=== PATIENT | male | born 1980 | race Caucasian/White ===

== ENCOUNTER 2018-03-05 10:39 | Inpatient (IN) | payer MEDICAID, SELFPAY ==
[2018-03-05 10:41] VITALS: BP 129/81; PULSE 112; RESP 18; TEMP 36.6; O2SAT 98; BMI 24.1
[2018-03-05] MEDS: LORazepam 2 MG/ML Syringe 1 MG IV (11:00)
[2018-03-05 11:05] LABS: Absolute Lymphocyte Count 2.68 X10^3/ul (0.83-4.51); Absolute Neutrophil Count 3.5 X10^3/uL (2.0-7.7); Basophil# 0.06 X10^3/uL; Basophil% 0.8 % (0-1); Eosinophil# 0.05 X10^3/uL; Eosinophils% 0.7 % (0-5); Hematocrit 41.5 % (40-54); Lymphocyte # 2.68 X10^3/ul (4.0); Lymphocyte % 37.7 % (19-41); Mean Corp Hgb Conc 33.7 g/gl (32-36); Mean Corpuscular Hgb 32.1 pg (27.0-32.0); Mean Corpuscular Volume 95.2 fL (80-94); Mean Platelet Vol. 8.8 fl (6.2-12.0); Monocyte# 0.76 X10^3/uL; Monocyte% 10.7 % (0-10); Neutrophil # 3.54 X10^3/uL (2.7-7.7); Neutrophil % 49.8 % (47-70); POSITIVE COUNT NO; POSITIVE DIFFERENTIAL NO; POSITIVE MORPHOLOGY NO; Platelet Count 250 K/mm3 (150-450); RBC Distribution Width CV 15.4 % (11.6-14.6); Red Blood Count 4.36 M/mm3 (4.6-6.2); White Blood Count 7.1 K/mm3 (4.4-11.0)
--- NOTE | 2018-03-05 11:05 | ED.VISSUMM ---
- ER Visit Summary Date of Service: 03/05/18 Chief Complaint: Alcohol withdrawal History of Present Illness: The patient is a 37 M with alcohol withdrawal. He left the hospital 2 days ago AGAINST MEDICAL ADVICE. He was admitted for alcohol withdrawal. He is in the area, staying with a friend. He has been drinking again. His last alcohol intake was this morning around 8 AM, about 3 hours ago. He is unable to quantify how much alcohol he drinks daily, but says a lot. Denies any drug use. He does smoke. He has history of schizoaffective disorder and takes Geodon, gabapentin, and BuSpar. He denies any hallucinations, suicidal thoughts, or homicidal thoughts. He says he has been in contact with someone named Stephany at [facility] in [facility]. He is requesting admission for detox. He does have a history of DTs and withdrawal seizures. Physical Examination: Patient is tachycardic but otherwise vitals are unremarkable. Afebrile. Slightly diaphoretic. Mild tremor. Alert and oriented. Heart is tachycardic but regular. Lungs are clear. Abdomen soft. He has a depressed mood and very mild agitation. No suicidal or homicidal ideation area Test Results: Laboratory studies, tox, alcohol level pending. Emergency Department Course and Treatment: Patient had an IV placed. Seizure precautions. Treated with Ativan while awaiting results. I called [facility] but no unanswered, and I left a voicemail. CBC unremarkable. Potassium 3.3. Alkaline phosphatase 120. Alcohol level 289. Tox screen positive for amphetamines, benzodiazepines, and cannabinoids. Patient had a CIWA score of 32. We were unable to reach anyone at his [facility] facility. He would like to stay here for alcohol withdrawal and detox. I will contact the hospitalist for further care. Treatment Plan: As above Disposition: Admission Impression: 1. Alcohol withdrawal This note was generated with [employer] dictation software. It may contain incorrect words, spelling, and punctuation that were not noted in review of the chart prior to signing ED Disposition - Plan for ED Patient: Chief Complaint: ETOH Intox
[2018-03-05 11:20] LABS: AST(SGOT) 25 U/L (15-37); Alanine Aminotransfer ALT/SGPT 45 U/L (16-61); Albumin, Serum 3.8 g/dL (3.2-5.0); Alkaline Phosphatase 120 U/L (45-117); Anion Gap 11 (5-15); BUN 7 mg/dL (7-18); BUN/Creat Ratio 9.5 RATIO (10-20); Calcium,Total 8.3 mg/dL (8.5-10.1); Chloride 103 mmol/L (98-107); Creatinine, Serum 0.74 mg/dL (0.70-1.30); EST Glomerular Filtration Rate 126 mL/min (>60); Est Glom Filt Rate - Afr Amer 152 mL/min (>60); Estimated Creatinine Clearance 160.18 ml/min; Globulin 3.7 g/dL (2.2-4.2); Glucose 96 mg/dL (74-106); Potassium 3.3 mmol/L (3.5-5.1); Protein, Total 7.5 g/dL (6.4-8.2); Sodium Level 139 mmol/L (136-145)
[2018-03-05 12:02] LABS: Amphetamine Urine VISTA POSITIVE (<1000 ng/mL); Barbiturate Urine VISTA NEGATIVE (< 200 ng/mL); Benzodiazepine Urine VISTA POSITIVE (< 200 ng/mL); Cocaine Urine VISTA NEGATIVE (< 300 ng/mL); Ecstacy Urine VISTA NEGATIVE (< 500 ng/mL); Methadone Urine VISTA NEGATIVE (< 300 ng/mL); PCP Urine VISTA NEGATIVE (< 25 ng/mL); THC Urine VISTA POSITIVE (< 50 ng/mL); Vista UDS pH Range 6
--- NOTE | 2018-03-05 12:18 | NURSING ---
DR BALDERRAMA FOR DR MACEDO
--- NOTE | 2018-03-05 12:18 | NURSING ---
MED SURG PAINTSIL ALCOHOL WITHDRAWAL
--- NOTE | 2018-03-05 12:19 | PCM.HP.STD ---
Problem List (1) Alcohol withdrawal Status: Acute (2) Alcohol dependence Status: Chronic Qualifiers: Substance use status: in withdrawal (3) Nicotine dependence Status: Chronic Qualifiers: Nicotine product type: cigarettes Substance use status: in withdrawal Qualified Code(s): F17.213 - Nicotine dependence, cigarettes, with withdrawal History of Present Illness Date of Admission: 03/05/18 Chief Complaint: Muscle cramps, tremors - 1 day The patient is a 37 year old M with PMHx of alcohol and nicotine dependence who has signed out AMA from [facility] this past few days. He says he signed out AMA because he felt better after some doses of Ativan and Valium. He drinks more than 1 L of liquor everyday. He drinks everything including mouthwash. He had tried to moderate his withdrawal symptoms by drinking beer every 4 hours but he is shaking very much. He complains of muscle cramps, tremors. Denied chest pain, diarrhea or abdominal pain. Vitals in the ED showed T 97.9F, HR 112, BP 129/81, RR 18, Spo2 98%. CBCD showed WBC 7.1, Hb 14.0, Plt 250. BMP showed Na 139, K 3.3, Cl 103, HCO3 25, BUN 11, Cr 0.74. Urine tox showed amphetamines, benzodiazepines, cannabinoids. Past Medical History Past Medical History (Chronic Problems): Chronic Problems Alcohol dependence (Chronic) Nicotine dependence (Chronic) Allergies morphine Allergy (Verified 03/05/18 10:45) Angioedema HORSES Allergy (Uncoded 03/05/18 10:45) Anaphylaxis Home Medications: Ambulatory Orders Medication Instructions Recorded Buspirone HCl [Buspar] 30 mg PO BID 03/05/18 Gabapentin [Neurontin] 800 mg PO TIDCM 03/05/18 Geodon 60 mg PO BID 03/05/18 Omeprazole [Prilosec] 20 mg PO DAILY 03/05/18 Surgical History: no surgical history Psychiatric History: No pertinent psych hx Lives: Alone Smoking Status: Current every day smoker Tobacco Use: Cigarettes, Cigars, Chew Alcohol: Heavy Drugs: Marijuana, - - amphetamines Review of Systems Constitutional: Reports: Malaise, Weakness. Denies: Anorexia, Chills, Fever, Weight Change Eyes: Denies: Blurred vision, Cataracts, Conjunctivae Inflammation, Pain, Redness, Vision Change HEENT: Denies: Difficulty Hearing, Difficulty Swallowing, Head Aches, Hearing Changes, Sinus Congestion, Sinus Drainage Cardiovascular: Denies: Chest Pain, Claudication, Orthopnea, Palpitations, Paroxysmal Noc. Dyspnea Respiratory: Denies: Cough, Hemoptysis, Shortness of breath at rest, Shortness of breath upon exertion, Sputum production Gastrointestinal: Denies: Abdominal Pain, Constipation, Hematemesis, Hematochezia, Nausea, Vomiting Genitourinary: Denies: Dysuria, Frequency, Incontinence, Nocturia Musculoskeletal: Denies: Joint Pain, Joint stiffness, Joint swelling, Joint Tenderness Skin: Denies: Rash, Wounds Neurological: Reports: Tremor. Denies: Focal weakness, Numbness, Tingling Psychiatric: Denies: Anxiety, Depression, Homicidal Ideations, Suicidal Ideations Hematologic/ Lymphatic: Denies: Easy Bruising, Easy Bleeding VTE Information - Inpt Only VTE Present on Admission: No VTE Pharm Prophylaxis ordered?: Yes Patient Problems: Active and Suspected Problems Alcohol withdrawal (Acute) - Physical Exam General: Alert, Oriented x3, Cooperative, - - very anxious HEENT: Atraumatic, PERRLA, EOMI, Normocephalic Oral: Moist Mucosa Neck: Supple, No JVD, Negative Carotid Bruits Lungs: Clear to auscultation, Normal air movement Cardiovascular: Regular rate, Regular Rhythm, Normal S1, Normal S2, Tachycardic Abdomen: Bowel Sounds Present, Soft, Non Tender, Non-Distended, No Hepato-splenomegaly, Passing Flatus Extremities: No edema, Capillary Refill Less than 3 Seconds Skin: - - Tatooes all over including lower eyelids/upper maxillary region Musculoskeletal: No Tenderness to Palpation of Joints or Extremities Lymphatic: No Cervical, Supraclavicular, or Inguinal Adenopathy Neurological: Cranial nerves II-XII grossly intact, - - Tremors of extremities, fine, fidgetting in bed Psych/Mental Status: Normal Affect, Appropriate Vital Signs Temp Pulse Resp BP Pulse Ox 97.9 F 112 H 18 129/81 H 98 03/05/18 10:41 03/05/18 10:41 03/05/18 10:41 03/05/18 10:41 03/05/18 10:41 Oxygen Delivery Method Room Air Weight: 87.543 kg Body Mass Index (BMI) 24.1 Laboratory Tests Past 24 Hrs 03/05/18 03/05/18 03/05/18 10:55 10:55 10:55 WBC 7.1 RBC 4.36 L Hgb 14.0 Hct 41.5 MCV 95.2 H MCH 32.1 H MCHC 33.7 RDW 15.4 H RDW Differential 53.0 H Plt Count 250 MPV 8.8 Immature Gran % (Auto) 0.300 Neut % (Auto) 49.8 Lymph % (Auto) 37.7 Villalba % (Auto) 10.7 H Eos % (Auto) 0.7 Baso % (Auto) 0.8 Absolute Neuts (auto) 3.5 Absolute Lymphs (auto) 2.68 Total Counted Not Reportable Sodium 139 Potassium 3.3 L Chloride 103 Carbon Dioxide 25.0 Anion Gap 11 BUN 7 Creatinine 0.74 Estim Creat Clear Calc 160.18 Est GFR (MDRD) Af Amer 152 Est GFR (MDRD) Non-Af 126 BUN/Creatinine Ratio 9.5 L Glucose 96 Calcium 8.3 L Total Bilirubin 0.40 AST 25 ALT 45 Alkaline Phosphatase 120 H Total Protein 7.5 Albumin 3.8 Globulin 3.7 Albumin/Globulin Ratio 1.0 Urine Opiates Screen Urine Methadone Screen Ur Barbiturates Screen Ur Phencyclidine Scrn Ur Amphetamines Screen U Methamphetamin-MDMA U Benzodiazepines Scrn Urine Cocaine Screen U Cannabinoids Screen Ur Drug Screen Comment Ethyl Alcohol 289.0 03/05/18 11:40 WBC RBC Hgb Hct MCV MCH MCHC RDW RDW Differential Plt Count MPV Immature Gran % (Auto) Neut % (Auto) Lymph % (Auto) Villalba % (Auto) Eos % (Auto) Baso % (Auto) Absolute Neuts (auto) Absolute Lymphs (auto) Total Counted Sodium Potassium Chloride Carbon Dioxide Anion Gap BUN Creatinine Estim Creat Clear Calc Est GFR (MDRD) Af Amer Est GFR (MDRD) Non-Af BUN/Creatinine Ratio Glucose Calcium Total Bilirubin AST ALT Alkaline Phosphatase Total Protein Albumin Globulin Albumin/Globulin Ratio Urine Opiates Screen NEGATIVE Urine Methadone Screen NEGATIVE Ur Barbiturates Screen NEGATIVE Ur Phencyclidine Scrn NEGATIVE Ur Amphetamines Screen POSITIVE H U Methamphetamin-MDMA NEGATIVE U Benzodiazepines Scrn POSITIVE H Urine Cocaine Screen NEGATIVE U Cannabinoids Screen POSITIVE H Ur Drug Screen Comment Ethyl Alcohol Assessment/Plan All Active Problems Alcohol withdrawal (Acute) 37 year old M with PMHx of alcohol and nicotine dependence who has signed out AMA from [facility] this past few days. He says he signed out AMA because he felt better after some doses of Ativan and Valium. 1. Acute alcohol withdrawal, h/o of heavy alcohol dependence, h/o AMA, moderate, will admit to medsurg, manage on alcohol withdrawal protocol, monitor on CIWA protocol. 2. Hypokalemia, will replace, recheck labs in am 3. Nicotine dependence, on replacement 4. Polysubstance use, urine tox showed amphetamines, cannabinoids. Advised to quit 5. DVT PPx- Early ambulation. Code Visit Inpatient E&M: 38664 Init Hosp L3
--- NOTE | 2018-03-05 12:25 | NURSING ---
DR BALDERRAMA IN ER
[2018-03-05 13:22] VITALS: BMI 24.0; BMI 24.1
[2018-03-05 13:47] VITALS: BP 114/71; PULSE 106; RESP 18; TEMP 36.7; O2SAT 100
[2018-03-05] MEDS: LORazepam 1 MG Tablet PO ×3 (13:58→22:32)
--- NOTE | 2018-03-05 15:25 | NURSING ---
Asked patient specifically about having thoughts of suicidal/homicidal ideation and he denies both at this time. He states he is just,anxious and depressed and knows that he needs to stop drinking. Patient was informed that he if has these thoughts he needs to immediately call out to let someone know. Patient verbalizes understanding.
[2018-03-05] MEDS: 0.9% NaCl Peripheral Flush Adult/Peds IV (17:21)
[2018-03-05] MEDS: Gabapentin 800 MG Tablet PO (17:21)
[2018-03-05] MEDS: Ondansetron 4 MG/2 ML Vial IV (17:21)
[2018-03-05 17:25] VITALS: BP 122/83; PULSE 105; RESP 16; TEMP 36.8; O2SAT 99
[2018-03-05] MEDS: Dicyclomine 10 MG Capsule 20 MG PO (20:40)
[2018-03-05] MEDS: hydrOXYzine PAM 25 MG Capsule 50 MG PO (20:40)
[2018-03-05] MEDS: Methocarbamol 750 MG Tablet PO (20:41)
[2018-03-05 20:46] VITALS: BP 128/63; PULSE 116; RESP 16; TEMP 36.8; O2SAT 97
[2018-03-05] MEDS: Ziprasidone HCl 20 MG Capsule 60 MG PO (22:32)
[2018-03-05] MEDS: busPIRone 15 MG TABLET 30 MG PO (22:32)
[2018-03-05 22:41] LABS: Bedside Glucose 100 mg/dL (70-110)
[2018-03-06 02:16] VITALS: BP 110/76; PULSE 91; RESP 16; TEMP 36.4; O2SAT 99
[2018-03-06 06:54] LABS: Anion Gap 6 (5-15); BUN 9 mg/dL (7-18); BUN/Creat Ratio 10.8 RATIO (10-20); Calcium,Total 8.5 mg/dL (8.5-10.1); Chloride 104 mmol/L (98-107); Creatinine, Serum 0.83 mg/dL (0.70-1.30); EST Glomerular Filtration Rate 109 mL/min (>60); Est Glom Filt Rate - Afr Amer 132 mL/min (>60); Estimated Creatinine Clearance 142.81 ml/min; Glucose 95 mg/dL (74-106); Potassium 3.5 mmol/L (3.5-5.1); Sodium Level 139 mmol/L (136-145)
[2018-03-06] MEDS: Folic Acid 1 MG Tablet PO (08:54)
[2018-03-06] MEDS: Pantoprazole Sodium 20 MG Tablet PO (08:54)
[2018-03-06] MEDS: Multivitamins,Therapeutic Tablet 1 TABLET PO (08:54)
[2018-03-06] MEDS: Thiamine Hydrochloride 100 MG Tablet PO (08:54)
[2018-03-06] MEDS: Gabapentin 800 MG Tablet PO ×3 (08:54→17:02)
[2018-03-06] MEDS: LORazepam 1 MG Tablet PO ×3 (08:54→21:26)
[2018-03-06] MEDS: busPIRone 15 MG TABLET 30 MG PO ×2 (08:54→21:26)
[2018-03-06 09:02] VITALS: BP 105/77; PULSE 78; RESP 16; TEMP 36.5
--- NOTE | 2018-03-06 09:06 | NURSING ---
Malia held this AM due to pt very lethargic. Able to wake up pt with verbal and touch but quickly falls back asleep.
--- NOTE | 2018-03-06 10:24 | PN_ITS ---
Patient Problems: Active and Suspected Problems Alcohol withdrawal (Acute) Subjective: Patient was seen and examined. Been sleeping. A couple of doses of Ativan was not given because patient has been sleeping since been given Geodon. No other acute events overnight. Objective: Physical Exam General: Alert, Oriented x3, Cooperative, - - very anxious HEENT: Atraumatic, PERRLA, EOMI, Normocephalic Oral: Moist Mucosa Neck: Supple, No JVD, Negative Carotid Bruits Lungs: Clear to auscultation, Normal air movement Cardiovascular: Regular rate, Regular Rhythm, Normal S1, Normal S2, Tachycardic Abdomen: Bowel Sounds Present, Soft, Non Tender, Non-Distended, No Hepato- splenomegaly, Passing Flatus Extremities: No edema, Capillary Refill Less than 3 Seconds Skin: - - Tatooes all over including lower eyelids/upper maxillary region Musculoskeletal: No Tenderness to Palpation of Joints or Extremities Lymphatic: No Cervical, Supraclavicular, or Inguinal Adenopathy Neurological: Cranial nerves II-XII grossly intact, - - Tremors of extremities, fine, fidgetting in bed Psych/Mental Status: Normal Affect, Appropriate Vitals/I&O's: Vital Signs Temp Pulse Resp BP Pulse Ox 97.7 F L 78 16 105/77 99 03/06/18 09:02 03/06/18 09:02 03/06/18 09:02 03/06/18 09:02 03/06/18 02:16 Oxygen Delivery Method Room Air Weight: 87.4 kg Body Mass Index (BMI) 24.0 Intake and Output for Last 24 Hours 03/04/18 03/05/18 03/06/18 23:59 23:59 23:59 Intake Total 300 / 300 400 / 400 Balance 300 / 300 400 / 400 Laboratory Results 03/05/18 10:55: WBC 7.1, RBC 4.36 L, Hgb 14.0, Hct 41.5, MCV 95.2 H, MCH 32.1 H, MCHC 33.7, RDW 15.4 H, RDW Differential 53.0 H, Plt Count 250, MPV 8.8, Immature Gran % (Auto) 0.300, Neut % (Auto) 49.8, Lymph % (Auto) 37.7, Adams % (Auto) 10.7 H, Eos % (Auto) 0.7, Baso % (Auto) 0.8, Absolute Neuts (auto) 3.5, Absolute Lymphs (auto) 2.68, Total Counted Not Reportable 03/05/18 10:55: Sodium 139, Potassium 3.3 L, Chloride 103, Carbon Dioxide 25.0, Anion Gap 11, BUN 7, Creatinine 0.74, Estim Creat Clear Calc 160.18, Est GFR (MDRD) Af Amer 152, Est GFR (MDRD) Non-Af 126, BUN/Creatinine Ratio 9.5 L, Glucose 96, Calcium 8.3 L, Total Bilirubin 0.40, AST 25, ALT 45, Alkaline Phosphatase 120 H, Total Protein 7.5, Albumin 3.8, Globulin 3.7, Albumin/Globulin Ratio 1.0 03/05/18 10:55: Ethyl Alcohol 289.0 03/05/18 11:40: Urine Opiates Screen NEGATIVE, Urine Methadone Screen NEGATIVE, Ur Barbiturates Screen NEGATIVE, Ur Phencyclidine Scrn NEGATIVE, Ur Amphetamines Screen POSITIVE H, U Methamphetamin-MDMA NEGATIVE, U Benzodiazepines Scrn POSITIVE H, Urine Cocaine Screen NEGATIVE, U Cannabinoids Screen POSITIVE H, Ur Drug Screen Comment 03/05/18 22:38: POC Glucose 100 03/06/18 06:05: Sodium 139, Potassium 3.5, Chloride 104, Carbon Dioxide 29.0, Anion Gap 6, BUN 9, Creatinine 0.83, Estim Creat Clear Calc 142.81, Est GFR (MDRD) Af Amer 132, Est GFR (MDRD) Non-Af 109, BUN/Creatinine Ratio 10.8, Glucose 95, Calcium 8.5 Current Medications Buspirone HCl (Buspar) 30 mg PO BID [facility] Last Admin: 03/06/18 08:54 Dose: 30 mg Dicyclomine HCl (Bentyl) 20 mg PO Q6H PRN PRN PRN Reason: abdominal discomfort Last Admin: 03/05/18 20:40 Dose: 20 mg Folic Acid (Folic Acid) 1 mg PO DAILYCM [facility] Last Admin: 03/06/18 08:54 Dose: 1 mg Gabapentin (Neurontin) 800 mg PO TIDCM [facility] Last Admin: 03/06/18 08:54 Dose: 800 mg Hydroxyzine Pamoate (Vistaril Pamoate Capsule) 50 mg PO Q6H PRN PRN PRN Reason: Mild Anxiety (score 1/3) Last Admin: 03/05/18 20:40 Dose: 50 mg Lorazepam (Ativan) 1 mg PO Q6H [facility]; Taper Stop: 03/08/18 17:29 Last Admin: 03/06/18 08:54 Dose: 1 mg Magnesium Hydroxide (Milk Of Magnesia) 30 ml PO DAILY PRN PRN PRN Reason: Constipation Methocarbamol (Methocarbamol) 750 mg PO Q6H PRN PRN PRN Reason: Muscle Aches Last Admin: 03/05/18 20:41 Dose: 750 mg [facility] Admin: 03/06/18 08:54 Dose: 1 tablet Nicotine (Nicoderm Cq (Pbkc)) 21 mg TRANSDERM. DAILY [facility] Last Admin: 03/06/18 08:53 Dose: 21 mg Nicotine Polacrilex (Rugby Nicotine (Pbkc)) 4 mg PO Q2H PRN PRN PRN Reason: Nicotine Craving Ondansetron HCl (Zofran) 4 mg IV Q8H PRN PRN PRN Reason: NAUSEA Last Admin: 03/05/18 17:21 Dose: 4 mg Pantoprazole Sodium (Protonix) 20 mg PO DAILY [facility] Last Admin: 03/06/18 08:54 Dose: 20 mg Psyllium Hydrophilic Mucilloid (Metamucil) 1 packet PO DAILY PRN PRN PRN Reason: CONSTIPATION Senna/Docusate Sodium (Senokot-S, Elaine-Colace) 2 tablet PO BID [facility] Last Admin: 03/06/18 08:58 Dose: Not Given Sodium Chloride () 5 - 15 ml IV UD PRN PRN Reason: SALINE FLUSH Last Admin: 03/05/18 17:21 Dose: 10 ml [facility]) [facility] Last Admin: 03/06/18 08:54 Dose: 100 mg Ziprasidone (Geodon) 60 mg PO BID [facility] Last Admin: 03/06/18 08:58 Dose: Not Given Medical Necessity - Tobacco Use Smoking Status: Current every day smoker Tobacco Use: Cigarettes, Cigars, Chew Assessment/Plan All Active Problems Alcohol withdrawal (Acute) 37 year old M with PMHx of alcohol and nicotine dependence who has signed out AMA from [facility] this past few days. He says he signed out AMA because he felt better after some doses of Ativan and Valium. 1. Acute alcohol withdrawal, h/o of heavy alcohol dependence, h/o AMA, improving, will continue on manage on alcohol withdrawal protocol, monitor on CIWA protocol, [facility] to assess in am. 2. Hypokalemia, replaced 3. Nicotine dependence, on replacement 4. Polysubstance use, urine tox showed amphetamines, cannabinoids. Advised to quit 5. Schizoaffective disorder, on Geodon 6. DVT PPx- Early ambulation. Code Visit Inpatient E&M: 10179 Subs Hosp L2
[2018-03-06] MEDS: hydrOXYzine PAM 25 MG Capsule 50 MG PO (13:29)
[2018-03-06] MEDS: Methocarbamol 750 MG Tablet PO (13:29)
[2018-03-06 13:31] VITALS: BP 131/86; PULSE 94; RESP 16; TEMP 36.6; O2SAT 100
[2018-03-06 21:16] VITALS: BP 114/70; PULSE 108; RESP 14; TEMP 36.8; O2SAT 99
[2018-03-06] MEDS: Ziprasidone HCl 20 MG Capsule 60 MG PO (21:25)
[2018-03-07 03:10] VITALS: BP 117/67; PULSE 98; RESP 14; TEMP 36.7; O2SAT 97
[2018-03-07] MEDS: LORazepam 1 MG Tablet PO ×2 (03:16→09:46)
[2018-03-07 08:30] VITALS: BP 126/82; PULSE 106; RESP 18; TEMP 37; O2SAT 100
[2018-03-07] MEDS: Ziprasidone HCl 20 MG Capsule 60 MG PO (09:46)
[2018-03-07] MEDS: Pantoprazole Sodium 20 MG Tablet PO (09:46)
[2018-03-07] MEDS: Folic Acid 1 MG Tablet PO (09:46)
[2018-03-07] MEDS: Multivitamins,Therapeutic Tablet 1 TABLET PO (09:46)
[2018-03-07] MEDS: Gabapentin 800 MG Tablet PO ×2 (09:46→12:12)
[2018-03-07] MEDS: busPIRone 15 MG TABLET 30 MG PO (09:46)
[2018-03-07] MEDS: Thiamine Hydrochloride 100 MG Tablet PO (09:47)
--- NOTE | 2018-03-07 11:40 | PCM.DC ---
- Discharge Diagnoses Current Active Problems: Current Active and Chronic Problems Alcohol withdrawal (Acute) Alcohol dependence (Chronic) Nicotine dependence (Chronic) You will use the following diet at home:: Regular Your food should be the consistency of: Regular Discharge Activity: May Not Drive Call your doctor if you observe: Fever of 101 or Higher, Shortness of breath, Dizziness, Fainting spells, Chest pain Additional Instructions: Follow with the [facility] outpatient rehab Allergies/Adverse Reactions: Allergies morphine Allergy (Verified 03/05/18 10:45) Angioedema HORSES Allergy (Uncoded 03/05/18 10:45) Anaphylaxis Medications to take at Discharge Buspirone HCl [Buspar] 15 mg PO TID 03/05/18 Gabapentin [Neurontin] 800 mg PO TIDCM 03/05/18 Geodon 60 mg PO BID 03/05/18 Omeprazole [Prilosec] 40 mg PO BID 03/05/18 Folic Acid 1 mg PO DAILY@0800 03/06/18 Multivitamins,Therapeutic [Multivitamin] 1 tablet PO DAILYCM tablet 03/07/18 Nicotine [Nicoderm Cq] 21 mg TRANSDERM. DAILY patch 03/07/18 Thiamine Hydrochloride [Vitamin B1] 100 mg PO DAILYCM tablet 03/07/18 Primary Care Physician: Care Physician,No Primary [Primary Care Provider] - Please follow up with your Primary Care Physician in: In 1 week Test Results: Test results from this visit will be discussed in further detail at your follow-up appointment, if applicable.
--- NOTE | 2018-03-07 11:58 | DCINST_ITS ---
- Discharge Diagnoses Current Active Problems: Current Active and Chronic Problems Alcohol withdrawal (Acute) Alcohol dependence (Chronic) Nicotine dependence (Chronic) You will use the following diet at home:: Regular Your food should be the consistency of: Regular Discharge Activity: May Not Drive Call your doctor if you observe: Fever of 101 or Higher, Shortness of breath, Dizziness, Fainting spells, Chest pain Additional Instructions: Follow with the [facility] outpatient rehab Allergies/Adverse Reactions: Allergies morphine Allergy (Verified 03/05/18 10:45) Angioedema HORSES Allergy (Uncoded 03/05/18 10:45) Anaphylaxis Medications to take at Discharge Buspirone HCl [Buspar] 15 mg PO TID 03/05/18 Gabapentin [Neurontin] 800 mg PO TIDCM 03/05/18 Geodon 60 mg PO BID 03/05/18 Omeprazole [Prilosec] 40 mg PO BID 03/05/18 Folic Acid 1 mg PO DAILY@0800 03/06/18 Multivitamins,Therapeutic [Multivitamin] 1 tablet PO DAILYCM tablet 03/07/18 Nicotine [Nicoderm Cq] 21 mg TRANSDERM. DAILY patch 03/07/18 Thiamine Hydrochloride [Vitamin B1] 100 mg PO DAILYCM tablet 03/07/18 Primary Care Physician: Care Physician,No Primary [Primary Care Provider] - Please follow up with your Primary Care Physician in: In 1 week Test Results: Test results from this visit will be discussed in further detail at your follow- up appointment, if applicable.
--- NOTE | 2018-03-07 12:02 | PCM.DC.SUM ---
Discharge Date and Diagnosis Date of Admission: 03/05/18 Date of Discharge: 03/07/18 - Primary Discharge Diagnosis Active and Suspected Problems Alcohol withdrawal (Acute) - Secondary Discharge Diagnosis Chronic Problems Alcohol dependence (Chronic) Nicotine dependence (Chronic) Hospital Course and Treatment Summary of Care Provided: The patient is a 37 year old M with PMHx of alcohol and nicotine dependence who has signed out AMA from [facility] this past few days. He says he signed out AMA because he felt better after some doses of Ativan and Valium. Patient was admitted to regular MedSurg floor and started on medication protocol as per [facility]. Patient felt better. 1. Acute alcohol withdrawal, with history of chronic alcohol use and dependence: Patient was managed as per [facility] protocol [facility] orders set for chronic alcohol use with withdrawal. Patient felt better. Patient is also at to leave when I entered the patient's room. 2. Hypokalemia, replaced. Cages replaced 3.5. 3. Nicotine dependence, on replacement 4. Polysubstance use, urine tox showed amphetamines, cannabinoids. Advised to quit 5. Schizoaffective disorder, on Geodon 6. DVT PPx- Early ambulation. Discharge medication reconciliation done. Discharge follow-up instructions completed. Patient was encouraged for alcohol cessation. Discharged on thiamine, multivitamin and folic acid. Subjective: Patient is all dressed up to leave. Patient is waiting for the [facility] to see. Patient denies tremor, diarrhea, hallucinations, muscle twitching or palpitation. - Physical Exam General: Alert, Oriented x3, Cooperative HEENT: Atraumatic, PERRLA, EOMI, Normocephalic Neck: Supple, No JVD, Negative Carotid Bruits Lungs: Clear to auscultation, Normal air movement, No rhonchi, No wheeze, No rales Cardiovascular: Regular rate, Regular Rhythm, Normal S1, Normal S2, No murmurs Abdomen: Bowel Sounds Present, Soft, Non Tender Extremities: No edema, Capillary Refill Less than 3 Seconds Skin: No rashes, No breakdown Musculoskeletal: No Tenderness to Palpation of Joints or Extremities Neurological: Cranial nerves II-XII grossly intact, Deep Tendon Reflexes 2+/4 and Symmetrical, Neuro grossly intact, Motor Exam 5/5 strength throughout Psych/Mental Status: Normal Affect, Appropriate Vital Signs Temp Pulse Resp BP Pulse Ox 98.6 F 106 H 18 126/82 H 100 03/07/18 08:30 03/07/18 08:30 03/07/18 08:30 03/07/18 08:30 03/07/18 08:30 Oxygen Delivery Method Room Air Weight: 192 lb 10.944 oz Body Mass Index (BMI) 24.0 Intake and Output for Last 24 Hours 03/05/18 03/06/18 03/07/18 23:59 23:59 23:59 Intake Total 300 / 300 1410 / 1410 600 / 600 Balance 300 / 300 1410 / 1410 600 / 600 Discharge Activity: May Not Drive Call your doctor if you observe: Fever of 101 or Higher, Shortness of breath, Dizziness, Fainting spells, Chest pain Home Medications: Medications to take at Discharge Buspirone HCl [Buspar] 15 mg PO TID 03/05/18 Gabapentin [Neurontin] 800 mg PO TIDCM 03/05/18 Geodon 60 mg PO BID 03/05/18 Omeprazole [Prilosec] 40 mg PO BID 03/05/18 Folic Acid 1 mg PO DAILY@0800 03/06/18 Multivitamins,Therapeutic [Multivitamin] 1 tablet PO DAILYCM tablet 03/07/18 Nicotine [Nicoderm Cq] 21 mg TRANSDERM. DAILY patch 03/07/18 Thiamine Hydrochloride [Vitamin B1] 100 mg PO DAILYCM tablet 03/07/18 Primary Care Physician: Care Physician,No Primary [Primary Care Provider] - Please follow up with your Primary Care Physician in: In 1 week Medical Necessity - Tobacco Use Smoking Status: Current every day smoker Tobacco Use: Cigarettes, Cigars, Chew Meaningful Use Info Meaningful Use Diagnoses (Choose all that apply): None applicable Code Visit Inpatient E&M: 25173 Disch Hosp
[2018-03-07 14:40] VITALS: BP 132/92; PULSE 110; RESP 18; TEMP 36.6; O2SAT 99
--- NOTE | 2018-03-07 14:56 | CHAPLAIN ---
Type of Pastoral Visit _x__ Initial Visit ___ Follow-up Visit ___ On-call Visit ___ General Patient Visit ___ Spiritual Assessment ___ Family Conference ___ Bereavement ___ Rapid Response ___ Code Blue ___ Other (describe below) Pastoral Care Referral From _x__ Patient ___ Family ___ Nurse ___ Physician ___ Critical Care Physician ___ Billet Worker ___ Other (describe below) Sacrament/Intervention _x__ Active listening ___ Anointing ___ Scientologist ___ Bereavement ___ Communion _x__ Maria Eugenia exploration ___ _x__ Life review _x__ Prayer ___ Reconciliation ___ Sacrament of Sick _x__ Supportive presence ___ Wedding ___ Other (describe below) Pastoral Comments patient is willing to talk and expresses desire to make decisions for his future that will lead to sobriety and good relationships; pt has studied sabianist and is open to spiritual support; pt welcomes prayer support
--- OUTSIDE RECORDS SUMMARY | 2018-06-08 10:04 | XMS RPT_ITS ---
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 Final Generalized anxiety LIGIA, Active [facility] diagnosis disorder / PRITI [facility] (discharge) F41.1(ICD-10) Repository 09/06/2016 Active Alcohol abuse, LAVIVI, Active [facility] F10.10(ICD-10) Repository 09/20/2017 Active Headache / SHPILKO, Active [facility] R51(ICD-10) [facility] Repository 09/20/2017 Final Nausea / SHPILKO, Active [facility] diagnosis R11.0(ICD-10) [facility] ([facility] Repository 09/20/2017 Final Unspecified SHPILKO, Active [facility] diagnosis abdominal pain / [facility] (discharge) R10.9(ICD-10) Repository 09/20/2017 Active Unspecified SHPILKO, [facility] abdominal pain / [facility] R10.9(ICD-10) Repository 09/20/2017 Active Paresthesia of skin VIJITAKULA, [facility] / [facility]20.2(ICD-10) [facility] 09/20/2017 Active Visual VIJITAKULA, [facility] R44.1(ICD-10) Repository 09/05/2017 Unknown Poisoning by tri [address]. Active [facility] antipsychot/neurolep [facility] t, accidental, init [facility] Repository / T43.591A(ICD-10) 09/05/2017 Unknown Poisoning by tri [address]. Active [facility] antidepressants, [facility] accidental, init / [facility] Repository T43.291A(ICD-10) 09/05/2017 Unknown Drug-induced tremor Dr. Isaías Active [facility] / G25.1(ICD-10) [facility] Repository 09/05/2017 Unknown Headache / Dr. Isaías Active [facility] R51(ICD-10) [facility] Repository 09/05/[address] Isaías Active [facility] abdominal pain / [facility] R10.9(ICD-10) [facility] Repository 09/05/[address] Isaías Active [facility] hyperhidrosis / [facility] R61(ICD-10) [facility] Repository 09/05/2017 Unknown Tachycardia, Dr. Isaías Active [facility] unspecified / [facility] R00.0(ICD-10) [facility] Repository 09/05/2017 Unknown Alcohol dependence, Dr. Isaías [facility] uncomplicated / [facility] Hospitals F10.20(ICD-10) [facility] Repository 09/05/[address] Isaías Active [facility] disorder, bipolar [facility] Hospitals type / F25.0(ICD-10) [facility] Repository 09/05/2017 Unknown Cocaine abuse, Dr. Isaías [facility] uncomplicated / [facility] Hospitals F14.10(ICD-10) [facility] Repository 09/05/2017 Unknown Cannabis abuse, Dr. Isaías [facility] uncomplicated / [facility] Hospitals F12.10(ICD-10) [facility] Repository 09/05/2017 Unknown Nicotine dependence, Dr. Isaías [facility] unspecified, [facility] uncomplicated / [facility] Repository F17.200(ICD-10) 09/05/2017 Active Poisoning by tri [address]. [facility] antipsychot/neurolep [facility] t, accidental, init [facility] Repository / T43.591A(ICD-10) 09/05/2017 Active Poisoning by tri [address]. [facility] antidepressants, [facility] accidental, init / [facility] Repository T43.291A(ICD-10) 09/01/2017 Final Poisoning by RADHAMES Weeks [facility] diagnosis antipsychot/neurolep I Hospitals (discharge) t, accidental, init Repository / T43.591A(ICD-10) 09/01/2017 Final Poisoning by RADHAMES Weeks [facility] diagnosis antieplptc and I Hospitals (discharge) sed-hypntc drugs, Repository acc, init / T42.6X1A(ICD-10) 09/01/2017 Active Poisoning by RADHAMES Weeks [facility] antieplptc and I Hospitals sed-hypntc drugs, Repository acc, init / T42.6X1A(ICD-10) 08/31/[address] Darling Active [facility] diagnosis substance abuse, [facility] Hospitals (discharge) uncomplicated / Repository F19.10(ICD-10) 08/31/[address]oxic effect of Dr[address] Darling Active [facility] diagnosis ethanol, accidental [facility] Hospitals (discharge) (unintentional), Repository init / T51.0X1A(ICD-10) 08/26/[address] Yocasta Cox [facility] diagnosis R06.6(ICD-10) [facility] (discharge) Repository 08/26/[address] Yocasta Cox [facility] R06.6(ICD-10) [facility] Repository 08/03/2017 Active Pain in throat / CHANEL LOO [facility] R07.0(ICD-10) A Hospitals Repository 08/03/2017 Active Dysphagia, CHANEL LOO [facility] unspecified / [facility] Hospitals R13.10(ICD-10) Repository 07/24/2017 Final Myocardial MICHAEL, NINFA [facility] diagnosis infarction type 2 / Hospitals (discharge) I21.A1(ICD-10) Repository 07/10/2017 Active Cannabis abuse, NA Active [facility] uncomplicated / Other [place] F12.10(ICD-10) Repository 07/06/2017 Active Alcohol dependence, ASHLEE, [facility] uncomplicated / [facility] [place] F10.20(ICD-10) Repository 07/06/2017 Active Alcohol dependence ASHLEE, [facility] with withdrawal, [facility] Other [place] uncomplicated / Repository F10.230(ICD-10) 07/06/2017 Final Abrasion, right hip, Dr. Jennifer [facility] diagnosis initial encounter / [facility] (discharge) S70.211A(ICD-10) Repository 07/06/2017 Final Exposure to other Dr. Jennifer [facility] diagnosis specified factors, [facility] (discharge) initial encounter / Repository X58.XXXA(ICD-10) 07/06/2017 Active Abrasion, right hip, Dr. Jennifer [facility] initial encounter / [facility] S70.211A(ICD-10) Repository PROCEDURES PROCEDURES DATE CODE DESCRIPTION STATUS SOURCE 03/20/2018 73620([facility] 73583 Completed [facility] CPT-4) Repository 03/20/2018 87138([facility] 20315 Completed [facility] CPT-4) Repository 03/20/2018 67231([facility] 82788 Completed [facility] CPT-4) Repository 03/20/2018 48473([facility] 74381 Completed [facility] CPT-4) Repository 03/08/2018 46994([facility] 29115 Completed [facility] CPT-4) Center Repository 03/08/2018 72404([facility] 96355 Completed [facility] CPT-4) Center Repository 02/26/2018 VBG658(C4) FALL PRECAUTIONS Completed [facility] Repository 02/26/2018 20601(C4) COMPLETE BLOOD COUNT Completed [facility] Repository 02/26/2018 38393(C4) BASIC METABOLIC Completed [facility] PANEL System Repository 02/26/2018 79103(C4) HEPATIC FUNCTION Completed [facility] PANEL System Repository 02/26/2018 39991(C4) TOXICOLOGY SCREEN, Completed [facility] UNCONFIRMED System Repository 02/26/2018 59288(C4) ETHANOL, SERUM Completed [facility] Repository 02/26/2018 YLL1006(C4) ASSESS CIWA SCALE Completed [facility] Repository 02/26/2018 [id number](C4) ASSESS SHARON SCALE Completed [facility] Repository 02/26/2018 AVO524(C4) SEIZURE PRECAUTIONS Completed [facility] Repository 02/26/2018 [id number](C4) BED REQUEST FOR THE Completed [facility] FLOOR System Repository 02/26/2018 WVV589(C4) ADMIT TO FLOOR Completed [facility] Repository 02/26/2018 LPQ773(C4) UPDATE ATTENDING Completed [facility] PHYSICIAN System Repository 02/26/2018 QYW1995(C4) MEASURE WEIGHT Completed [facility] Repository 02/26/2018 [id number](C4) RECORD HEIGHT Completed [facility] Repository 02/26/2018 [id number](C4) MEASURE VITAL SIGNS Completed [facility] WITH PULSE OXIMETRY System Repository 02/26/2018 [id number](C4) NOTIFY MD Completed [facility] Repository 02/26/2018 [id number](C4) INSERT PERIPHERAL IV Completed [facility] ACCESS System Repository 02/26/2018 CODE1(C4) FULL CODE Completed [facility] Repository 02/26/2018 [id number](C4) [id number] Completed [facility] Repository 02/26/2018 [id number](C4) UP AD KYLE Completed [facility] Repository 02/26/2018 39461(C4) COMPLETE BLOOD COUNT Completed [facility] W/DIFF System Repository 02/26/2018 73775(C4) BASIC METABOLIC Completed [facility] PANEL System Repository 02/26/2018 19245(C4) PROTHROMBIN TIME AND Completed [facility] INR System Repository 02/26/2018 83513(C4) MAGNESIUM Completed [facility] Repository 02/26/2018 43243(C4) BASIC METABOLIC Completed [facility] PANEL System Repository 02/26/2018 42694(C4) MAGNESIUM Completed [facility] Repository 02/26/2018 JAC881(C4) UPDATE TREATMENT Completed [facility] TEAM RESIDENT System Repository 02/26/2018 [id number](C4) DISCHARGE PATIENT Completed [facility] Repository 02/22/2018 [id number](ICD10 [id number] Completed [facility]) Center Repository 02/22/2018 8C6931D(ICD10 [id number] Completed [facility]) Center Repository 02/14/2018 50440([facility] 51638 Completed [facility] CPT-4) Repository 02/11/2018 17991(C4) CT HEAD W/O CONTRAST Completed [facility] Repository 02/11/2018 03088(C4) CT FACIAL BONES W/O Completed [facility] CONTRAST System Repository 02/11/2018 98722(C4) CT C-SPINE W/O Completed [facility] CONTRAST System Repository 02/11/2018 OTN152(C4) RECHECK VITAL SIGNS Completed [facility] Repository 02/11/2018 HCI368(C4) RECHECK VITAL SIGNS Completed [facility] Repository 02/11/2018 ED103(C4) DISCHARGE PATIENT Completed [facility] Repository 02/10/2018 03610([facility] 53994 Completed [facility] CPT-4) Repository 02/07/2018 37954([facility] 81458 Completed [facility] CPT-4) Repository 02/04/2018 91316([facility] 29661 Completed [facility] CPT-4) Repository 01/18/2018 07086([facility] 17335 Completed [facility] CPT-4) Repository 11/03/2017 61123(C4) TB INTRADERMAL TEST Completed [facility] Repository 11/03/2017 [id number](C4) ASSESS CIWA SCALE Completed [facility] Repository 10/31/2017 51280([facility] 15700 Completed [facility] CPT-4) Repository 10/30/2017 35348([facility] 59932 Completed [facility] CPT-4) Repository 10/29/2017 85242([facility] 71151 Completed [facility] CPT-4) Repository 10/27/2017 17862([facility] 34102 Completed [facility] CPT-4) Repository 10/20/2017 14275([facility] 80902 Completed [facility] CPT-4) Repository 09/20/2017 21564([facility] 25179 Completed [facility] CPT-4) Repository 09/20/2017 57899([facility] 62120 Completed [facility] CPT-4) Repository 09/20/2017 61459([facility] 77832 Completed [facility] CPT-4) Repository 09/19/2017 16134([facility] 87170 Completed [facility] CPT-4) Repository 09/03/2017 92551([facility] 14947 Completed [facility] CPT-4) Repository 09/02/2017 69146([facility] 15461 Completed [facility] CPT-4) Repository 09/01/2017 63855([facility] 80979 Completed [facility] CPT-4) Repository 09/01/2017 44839([facility] 79562 Completed [facility] CPT-4) Repository 09/01/2017 21541([facility] 95194 Completed [facility] CPT-4) Repository 09/01/2017 00560([facility] 91096 Completed [facility] CPT-4) Repository 09/01/2017 57751([facility] 54345 Completed [facility] CPT-4) Repository 09/01/2017 [facility]16[facility] CPT-4) Repository 08/26/2017 94370([facility] 54201 Completed [facility] CPT-4) Repository 08/03/2017 70423[facility] CPT-4) Repository 07/10/2017 28959(C4) EKG 12 LEAD - Completed [facility] PERFORM System Repository 07/10/2017 47249(C4) TOXICOLOGY SCREEN, Completed [facility] UNCONFIRMED System Repository 07/10/2017 59432(C4) EKG 12 LEAD - Completed [facility] PERFORM System Repository 07/06/2017 29867([facility] 63168 Completed [facility] CPT-4) Repository RESULTS RESULTS DAILY PROGRESS NOTE - Observed: 03/27/2018 Status: COMPLETED Source: [facility] 1:05 PM HOSPITALS REPOSITORY Subjective Data: ZAINA DOLL is a 37 year old man who is here on Hospital Day # 6. Pt seen in coverage for unit team. He was admitted d/t SI, being treated for bipolar, anxiety. Per nursing staff pt has been cooperative on the unit. Asked for PRN meds last night. Otherwise nothing remarkable happened w/him. He has not been disruptive, has taken meds as Rx. Pt interviewed on rounds. Said that he slept well, a full 8hrs. He has good energy today but not too much energy. Pt shared that last night he could not get a hold of his GF w/whom he plans to settle down, this upset him, he asked for PRN meds so he would not get too upset. This was helpful. Later he was able to get a hold of her. He said that he has not been paranoid, no AVH. He has felt more stable. Less racing thoughts. Mood not depressed, hopeless, or suicidal. No HI. No side-effects on meds. Pt feels as though he is on a good path towards sobriety w/out inpatient treatment. He said that he knows he can never drink alcohol again, I am the type of person I can't even have one, I turn into someone else. He denied cravings. Additional Information: PPH Bipolar Disorder. Addiction. Anxiety. In IOP and has psychiatrist at [facility]. SH homeless, at [facility]. Lots of psychosocial stressors. H/o legal issues. Objective: Objective Information: T PRBPSpO2 Value36.118 Date/Time03/27 7:151/6 7:15 Range(36.1C - 36.1C ) (18 - 18 ) Orthostatic 03/27 7:15 P BP [id number] / 80 (115 - 115 ) / (80 - 80 ) [id number] / 79 (114 - 114 ) / (79 - 79 ) Mental Status Exam: General: male Appearance: Appears approximately his stated age, improved grooming and hygiene, many tattoos. Tall w/trim build. Attitude: Cooperative, easier to converse w/today. Behavior: Marginal eye contact. Motor Activity: No PMR, PMA, tics, tremors, EPS. Speech: Spontaneous, fluent, slightly fast rate but not pressured, normal tone and volume. Mood: better Affect: Congruent w/normal range and reactivity. Thought Process: Mildly circumstantial. Thought Content: No SI, future-oriented, no HI. Thought Perception: Denies AVH, no hallucinatory behavior. Cognition: Oriented. Fair concentration/attention. Good fund of general knowledge. Insight: Fair. Judgment: Marginal. Medications: Continuous Medications No continuous medications are active Scheduled Medications 1. Benzonatate: 100 mg Oral 3 Times a Day 2. busPIRone (BUSPAR): 20 mg Oral <User Schedule> 3. Folic Acid: 1 mg Oral Daily 4. Gabapentin: 900 mg Oral 3 Times a Day 5. Naltrexone: 50 mg Oral Daily 6. Nicotine 21 mg/ 24 hour TransDermal: 1 patch TransDermal Every 24 Hours 7. Pantoprazole: 40 mg Oral Daily 8. Thiamine: 100 mg Oral Daily 9. Ziprasidone: 80 mg Oral 2 Times a Day With Meals PRN Medications 1. Acetaminophen: 650 mg Oral Every 4 Hours 2. diphenhydrAMINE: 50 mg Oral Every 6 Hours 3. diphenhydrAMINE Injectable: 50 mg IntraMuscular Every 6 Hours 4. Haloperidol Lactate: 5 mg Oral Every 6 Hours 5. Haloperidol Lactate Injectable: 5 mg IntraMuscular Every 6 Hours 6. Ibuprofen: 400 mg Oral Every 6 Hours 7. LORazepam: 1 mg Oral Every 6 Hours 8. LORazepam Injectable: 1 mg IntraMuscular Every 6 Hours 9. Magnesium Hydroxide -Al Hydrox -Simethicone Oral Liquid: 30 mL Oral Every 6 Hours 10. Nicotine Transmucosal: 2 mg Oral Every 4 Hours Assessment and Plan: Assessment: Impression: Bipolar disorder - resolving mixed sxs. Anxiety. Addictions. Plan: Continue hospitalization for safety, further stabilization Continue Geodon 80mg BID with meals. Continue Buspar 20mg TID Continue gabapentin 900 TID Encouraged sobriety, continue IOP. Dispo per team. Medication Consent: Medication Consent: no medication changes necessary for review. Electronic Signatures: Felicia Child) (Signed 27-Mar-2018 13:14) Authored: Subjective Data, Objective, Assessment and Plan, Medication Consent, Signature/Cosignature/Attestation Last Updated: 27-Mar-2018 13:14 by Felicia Child) DAILY PROGRESS NOTE - Observed: 03/26/2018 Status: COMPLETED Source: [facility] 1:12 PM HOSPITALS REPOSITORY Subjective Data: ZAINA DOLL is a 37 year old Male who is Hospital Day # 5. Patient stated that he felt better today and that he slept really well last night. He stated that his anxiety still felt the same as yesterday and rated it as 7/10. Some of the major sources of anxiety, stress, and depression are his multiple relationships with women and what to do about them. He is also anxious, but hopeful, about maintaining his sobriety. He talked about his mood being up and down, going from periods of being really up and all over the place to being down and depressed and wanting a car to just hit him so he could . He reported that the Geodon was started years ago because he has extensive visual hallucinations of people, colors, lights, shapes that are distressing to him. He stated that he has them still, even when taking his medications and when sober. He does think that the Geodon helps because he can tell a difference if he is not taking it. He is also motivated to stop smoking and requested prescription of NRT when he is discharged. He is fine going back to the [facility] while he tries to find a place with one of his girlfriends. Objective: Objective Information: T PRBPSpO2 [id number]/70 Date/Time03/26 7:531/ 15: 7:5303/25 15:00 Range(36.3C - 36.3C ) (81 - 81 ) (18 - 18 ) (109 - 109 )/ (70 - 70 ) Orthostatic 03/26 7:53 P BP [id number] / 71 (105 - 105 ) / (71 - 71 ) [id number] / 76 (111 - 111 ) / (76 - 76 ) Mental Status Exam: General: male Appearance: appears older than stated age, disheveled appearing, fair grooming and hygiene, multiple tattoos Attitude: difficult to redirect, but not antagonistic or hostile Behavior: Poor to fair eye contact Motor Activity: no abnormal movements noted, slight PMA Speech: pressured, constant, difficult to interrupt, normal tone and volume Mood: better Affect: somewhat congruent, slightly anxious vs hyper, constricted, non-labile Thought Process: circumstantial to tangential, logical, goal-oriented Thought Content: denied SI, did not endorse HI, no delusions elicited Thought Perception: no current AVH, did not appear to be responding to internal stimuli Cognition: no deficits noted Insight: fair Judgment: poor to fair Medications: Continuous Medications No continuous medications are active Scheduled Medications 1. Benzonatate: 100 mg Oral 3 Times a Day 2. busPIRone (BUSPAR): 20 mg Oral <User Schedule> 3. Folic Acid: 1 mg Oral Daily 4. Gabapentin: 900 mg Oral 3 Times a Day 5. Naltrexone: 50 mg Oral Daily 6. Nicotine 21 mg/ 24 hour TransDermal: 1 patch TransDermal Every 24 Hours 7. Pantoprazole: 40 mg Oral Daily 8. Thiamine: 100 mg Oral Daily 9. Ziprasidone: 60 mg Oral 2 Times a Day PRN Medications 1. Acetaminophen: 650 mg Oral Every 4 Hours 2. diphenhydrAMINE: 50 mg Oral Every 6 Hours 3. diphenhydrAMINE Injectable: 50 mg IntraMuscular Every 6 Hours 4. Haloperidol Lactate: 5 mg Oral Every 6 Hours 5. Haloperidol Lactate Injectable: 5 mg IntraMuscular Every 6 Hours 6. Ibuprofen: 400 mg Oral Every 6 Hours 7. LORazepam: 1 mg Oral Every 6 Hours 8. LORazepam Injectable: 1 mg IntraMuscular Every 6 Hours 9. Magnesium Hydroxide -Al Hydrox -Simethicone Oral Liquid: 30 mL Oral Every 6 Hours 10. Nicotine Transmucosal: 2 mg Oral Every 4 Hours Assessment and Plan: Assessment: A/P: #Bipolar disorder by history, possibly with psychotic features - Endorsing depressive sx with possible hypomanic episodes. Exhibiting some features of hypomania (pressured speech, grandiosity) vs. severe anxiety. Described extensive, distressing visual hallucinations (also present when sober) ongoing for years, even when compliant with medications (stated Geodon was still somewhat helpful). - Increase Geodon to 80mg BID with meals, consider repeat ECG tomorrow or Wednesday, Qtc on admission 449 - Obtain collateral from [facility] and discuss possibility of using SSRI, pending bipolar history #Unspecified anxiety disorder -- reported that he slept better and feels better, but stated that his anxiety feels the same at /10 - Continue Buspar 20mg TID - Continue gabapentin 900 TID #Unspecified cannabis use disorder #Unspecified alcohol use disorder Medication Consent: Medication Consent: Risks, benefits, and potential side effects were reviewed. Medication(s) Geodon. Patient expressed understanding and consent obtained. Signature/Cosignature/Attestation: Attending AttestationI saw and evaluated the patient. I personally obtained the goodwin and critical portions of the history and physical exam or was physically present for goodwin and critical portions performed by the resident/fellow. I reviewed the resident/fellows documentation and discussed the patient with the resident/fellow. I agree with the resident/fellows medical decision making as documented in the resident/fellows note with the exception/addition of the following: I personally evaluated the patient (as noted in the above attestation) on 26-Mar-2018 Comments/ Additional Findings Pt seen in rounds with resident. He endorsed mood instability and racing thoughts. H/o not requiring much sleep, fluctuations in mood, extremes, substance use. On exam is talking non-stop, mild pressure. Agree with plan to optimize mood stabilizer, he likes geodon so will work with that. Electronic Signatures: Felicia Child) (Signed 26-Mar-2018 14:13) Authored: Signature/Cosignature/Attestation Co-Signer: Subjective Data, Objective, Assessment and Plan, Medication Consent, Signature/Cosignature/Attestation Litzy Davidson (Resident)) (Signed 26-Mar-2018 13:47) Authored: Subjective Data, Objective, Assessment and Plan, Medication Consent, Signature/Cosignature/Attestation Last Updated: 26-Mar-2018 14:13 by Felicia Child) DISCHARGE PROFILE2 Observed: 03/24/2018 Status: UNK Source: DRIVER 1:56 PM HOSPITALS REPOSITORY Discharge Orders: Anticipated Discharge Date: Anticipated Discharge [id number] Activity: activity as tolerated. May shower. Diet: Dietresume normal diet Additional Orders: Additional Instructions Please take your medications as prescribed and attend your follow-up appointment(s), as scheduled. IN CASE OF EMERGENCY. Call your outpatient psychiatrist right away or travel to the nearest emergency department if you have new or worsening mental health symptoms; unusual changes in behavior, mood, thoughts or feelings; thoughts of wanting to harm yourself or other people; or if you are experiencing serious medication side effects. Call 911 in the case of an emergency. WHAT SHOULD I KNOW ABOUT STORAGE AND DISPOSAL OF MY MEDICATION(S) --Keep each medication in the container it came in, tightly closed, and out of reach of children. --Take any medication that is outdated or no longer needed to your local police station for proper disposal. WHAT OTHER INFORMATION SHOULD I KNOW --Keep all appointments with your doctor. --Do not let anyone else take your medication(s). Ask your pharmacist any questions you have about refilling your prescription. --It is important for you to keep a written list of all of the prescription and nonprescription ([id number]) medicines you are taking, as well as any products such as vitamins, minerals, or other dietary supplements. You should bring this list with you each time you visit a doctor or if you are admitted to a hospital. It is also important information to carry with you in case of emergencies. Call Provider If (Homegoing Patients): Any new concerning symptoms. Psychiatric Continuing Care Plan: Reason for Hospitalization: depression, suicidal thoughts Advance Directive Medical: no (1) Additional Resources for Patient and Family: Crisis Hotline Successful Interventions during Inpatient Hospital Stay: coping skills, group programming This patient is being discharged on multiple antipsychotic medications: no: Take all medications until outpatient provider advises otherwise. Questions After Hospitalization: Phone Number: [facility] Transition Record: Transition Record Discussed: All 11 elements of this patients transition record were discussed with the patient/caregiver and the Next Level of Care Provider Transition Record Given: A copy of the transition record was given to the patient and was transmitted to the Next Level of Care Provider Vascular: Follow-Up - Vascular Surgeon: Physician/Dept./ServiceVascular Surgeon Provider FINAL REVIEW of Orders: Final Review: Final Review of Medication Reconciliation and Orders Completedby Physician Reviewing ProviderLitzy Davidson MD (Resident) at 28-Mar-2018 23:28:40 Appointments: Follow-Up Appointment 01: Physician/Dept/LisaNtigre [facility] Scheduled Date/[id number] 10:00 LocationRecovery Resources: [address] Phone [phone] Electronic Signatures: Georgiana Banuelos (CLIN COOR) (Signed 24-Mar-2018 13:59) Authored: Psychiatric Continuing Care Plan, Appointments, Gold Form - Hay Stacker Summary Litzy Davidson ( (Resident)) (Signed 28-Mar-2018 23:28) Authored: Discharge Orders, Psychiatric Continuing Care Plan, Vascular, Provider FINAL REVIEW of Orders Last Updated: 28-Mar-2018 23:28 by Litzy Davidson ( (Resident)) References: 1. Data Referenced From Admission Risk Screen - Adult 03/24/2018 3:11 AM DISCHARGE PLANNING Observed: 03/24/2018 Status: UNK Source: UNIVERSITY NOTE 1:08 PM HOSPITALS REPOSITORY Patient Learning: Factors that Impact Ability to Learnacuteness of illness(1) Other Factors: Functional Screen: In the recent/past 2-4 weeks, patient or family have noticedno issues that require a rehabilitation consult at this time(2) Discharge Planning: Discharge Plannin03/24/18 @ 1:08 pm SOCIAL WORK NOTE The patient presented with heightened anxiety with issues surrounding his housing situation and family relationships. He stated that he has not drank any alcohol in 3 weeks. He reports that sometime she forgets to take his medications. During assessment, the patient kept repeating I don't know what wrong with me. His speech was rapid. He reported that he is seeing shadows but denies current AH, SI, and VH. The patient has been residing at [facility] and follows at [facility]. Dispo back to the [facility] once stable with follow up at [facility]. SW will continue to follow. Jennifer KIRBY [facility] 03/25/18 @ 3:47 pm SOCIAL WORK NOTE The patient continues to be anxious with rapid speech. The patient's medications are being modified. The patient will discharge to the [facility] once stable SW will continue to follow. Jennifer VIGIL [facility] 03/28/18 @ 4:26 pm SOCIAL WORK NOTE SW called the [facility] to confirm that the patient is not on a banned list. He is able to return there. SW left a message with [facility] for a follow-up appointment. The patient is set to discharge tomorrow. SW will continue to follow. Jennifer Beltrán TEST MANAGER [facility] 03/29/18 @ 11:54 am SOCIAL WORK NOTE The patient discharged today to the [facility]. SW attempted to call [facility] multiple times to get a follow-up appointment. SW was informed that the scheduling department was having power issues. SW was connected to the patient's to inform of the discharge and the voicemail box was full. The patient was given instruction on how to follow-up. No further SW needs at this time. Jennifer Beltrán [facility] 03/29/18 Nursing 1420 Pt. was discharged to [facility] with all belongings, picked up by Izabel. Medication education provided and pt. verbalized an understanding and intent to comply as directed, prescriptions provided. Pt. agreed to comply with following up at [facility]. They were unable to schedule an appointment today due to technical issues, pt. agreed to continue calling and to keep in contact with his case assistant. Pt. reported that he felt ready for discharge, denied any thoughts to harm himself or others. He was pleasant, cooperative, logical, and organized throughout the discharge process. Georgiana Banuelos RN Final Disposition/Discharge: Disposition/Discharge Information: Discharge/Transfer Information: Discharge/Transfer Date/[id number] Discharge Modeambulatory Transportation Methodtransportation service Valuables/Medications/Belongings Returnedyes Security Envelope Returnedyes Final DispositionHome Electronic Signatures: Georgiana Banuelos (CLIN [employer]OR) (Signed 29-Mar-2018 14:23) Authored: Discharge Planning Note, Final Disposition/Discharge Jennifer Beltrán ([facility]) (Signed 29-Mar-2018 11:56) Authored: Discharge Planning Note Last Updated: 29-Mar-2018 14:23 by Georgiana Banuelos (CLIN COOR) References: 1. Data Referenced From 3. Plan of Care - Behavioral 03/24/2018 03:11 AM 2. Data Referenced From Admission Risk Screen - Adult 03/24/2018 03:11 AM PATIENT PROFILE - Observed: 03/24/2018 Status: UNK Source: UNIVERSITY ADULT V2 3:31 AM HOSPITALS REPOSITORY Profile: Initial Info: How to be AddressedKurt Spoken Language PreferredEnglish (1) Are you currently using the Personal Electronic Health Record or MYCAREno Are you interested in learning more about [facility] for the management of your healthdeclined Stated Reason for AdmissionI was having suicidal thoughts and I've been off my medications. Arrived [facility] department Employment Statusdisabled(2) Current or Previous Servicenone(2) Patient Belongingsremains with patient Medications Brought to Hospitalyes Medication Dispositionhospital safe History of MDROno General Health: Weight in kg88.4 kilogram(s) Weight in dzd051 pound(s) Height in feet6 feet Height in inches3 inch(es) Height in cm190.5 centimeter(s) BMI (kg/m2)24.359 square meter Weight Methodactual (measured) Scale Typechair Height Methodstated RSP Based Care: How would you like to participate in your careI really need to get back on my medications. What is the number one concern for you during this hospitalizationI haven't been sleeping and I'm having suicidal thoughts What is the most important thing we can do to support you during this hospitalizationI'm hoping the doctors start me back on my medicine. Is there anything we need to know to best care for youNo Substance: Current or Former Substance Use YES: Cigarette/Tobacco(3), Alcohol(3), Street Drugs(3) Tobacco Cessation Education (provide if tobacco use within the last 12 mos)not applicable Alcohol Use Statuscurrent alcohol (2) Alcohol Amount7-9 drinks (2) Alcohol Frequencydaily (2) Alcohol Typeliquor; wine; beer(2) Longest Period of Alcohol Abstinence (within past 5 years)9 mo(2) Alcohol Use Umyvbhav57 yrs(2) Street Drug/Inhalant/ Medication Use Statuscurrent street drug/inhalant/medication abuse (2) Street Drug/Medication/ Inhalant Typemarijuana; cocaine(2) Street Drug/Medication/ Inhalant Routesmoking(2) Frequency of Street Drug/Medication/Inhalant Use2-4 times/month (2) Health Mgmt: Symptoms/Conditions Managed at [facility] Relationship/Environ: Primary Source of Support/Comfortparent Lives Withparent(s) Living Arrangementshomeless/fci Resource/Environmental Concernsnone Anticipated Transition Toshelter Services Anticipated at Transitionnone Significant IndicatorsComplete Information Review: Allergies, Home Meds and Significant Events have been Reviewed and Verified with Patient/Familyyes ALLERGY, INTOLERANCE, ADVERSE EVENT: Allergies: morphine: Drug, Hives/Urticaria, Active Horse: Environment, Swelling/Edema, Anaphylaxis, Facial Swelling, Active opiates: Drug Category, Unknown, Active narcotic analgesics: Drug Category, Unknown, Active Electronic Signatures: Amy Jones (RN) (Signed 24-Mar-2018 03:41) Authored: Profile, Additional Information Last Updated: 24-Mar-2018 03:41 by Amy Jones (RN) References: 1. Data Referenced From Triage - ED 03/08/2018 3:26 PM 2. Data Referenced From Patient Profile - Adult v2 03/01/2018 10:39 AM 3. Data Referenced From Provider Note - ED v2 03/20/2018 7:37 PM ADMISSION RISK SCREEN Observed: 03/24/2018 Status: UNK Source: UNIVERSITY - ADULT 3:11 AM HOSPITALS REPOSITORY Allergies: Allergies: morphine: Hives/Urticaria Horse: Swelling/Edema, Anaphylaxis, Facial Swelling opiates: Unknown narcotic analgesics: Unknown Patient Verification: New W ID Band Applied in my Departmentyes Patient Identity Verified Bypatient ID Band FULL Name, include Middle, spelling matches patient's ID used for verificationyes ID Band Matches Patient ID used for Verficationyes ID Band MRN Matches EMR MRNyes Advance Directive: Advance Directive Medicalno (1) Advance Directive Information Givenpatient/family declined (1) Falls Screen: Type of Assessmentadmission Risk for Injury Associated with Fallnone Fall Risk Conclusionmoderate falls risk with low risk for associated injury [place] Safety InterventionsWDL *orient to call system *instruct to call for assistance before getting out of bed *non-slip footwear when patient is out of bed *call cardona in reach *personal items and telephone in reach *physically safe environment (no spills or clutter) *bed in lowest position with wheels locked *appropriate side rails in place *room/bathroom lighting operational, light cord in reach *appropriate signage on door Functional screen: Functional Screen: In the recent/past 2-4 weeks, patient or family have noticedno issues that require a rehabilitation consult at this time Learning Assessment (Patient): Patient is Able to be Assessed for Learningyes Factors Influencing Readiness to Learnacuteness of illness Factors that Impact Ability to Learnacuteness of illness Devices/Methods Used to Communicatenone Learning Preferencesindividual instruction; verbal instruction; written material Cultural Considerationsnone Developmental Considerationsnone Orthodox Considerationsnone Learning Assessment (Other Learner): Other learner availableno Adult Nutrition Screen: Have you recently lost weight without tryingno Have you been eating poorly because of a decreased appetiteno MST Score0 RiskMST = 0 or 1 Not at risk. Eating well with little or no weight loss Nutrition Consult needed this visitno Can Patient Participate in Room Serviceyes Patient requires Paper Dishes/Plastic Utensilsno Pain Screen: Pain Scalenumerical 0-10 Pain Scale Educationteaching provided Current Pain Level0 = None Acceptable Pain Level0 = None Expression of Pain (nonverbal)none Chronic Painno Spiritual Screen: Are there any cultural, spiritual, anglican practices/values/needs that are important for us to knowno Vaccinations: Vaccination - Influenza Vaccination Screen: Is it flu season (between and )Yes Screening for identified contraindications to influenza vaccinationno contraindications identified Influenza vaccine indicatedyes Vaccination - Pneumonia Vaccination Screen: Patient has received a previous pneumonia vaccine:no/unknown... Immunocompetent persons with underlying chronic conditions or reside in termite control technician care facilitiescigarette smoking Pneumonia vaccine NOT indicated due to:No contraindications to vaccine Pneumonia vaccine indicatedyes Malik: Skin - Malik Scale: Malik: Sensory Perception (response to environment)(4) no impairment Malik: Moisture (degree skin exposed to moisture)(4) rarely moist Malik: Activity (ability to walk)(4) walks frequently Malik: Mobility (amount/control of body movement)(4) no limitation Malik: Nutrition (quality of food intake)(3) adequate Malik: Friction and Shear(3) no apparent problem Malik: Score22 Significant Indicatiors: Significant Indicators: Complete Pressure Injury: Pressure Injury Present on Admissionno Strengths (document at least 2 ): Describe Your Strengths: I really can't. I have a lot of things on my mind. Describe Your Strengths 2: as stated above Homicide Risk/Potential for Violence Assessment: Has someone close to you ever told you that you have an anger problem: yes, patient reports he has been becoming increasingly angry when around family and friends that are drinking. Threats of violence and/or actual commission of violence toward others in the past 6 months: no Threats of violence and/or actual commission of violence toward self in the past 6 months: yes History of threats of violence and/or actual commission of violence toward others greater than 6 months ago: no Are you angry about being admitted to the hospital: no Do you strike out in anger: no Do you feel like striking out now: no What has helped you in the past to regain control: my medications. Potential for Violence Assessment: low risk Elopement Assessment: Elopement Risk: no Trauma History: Victim, Perpetrator or Witness of Abuse: no; No significant physical, sexual, emotional abuse, neglect or trauma history was identified on initial assessment of the patient. This shall not be an active focus of treatment, but will continue to be reassessed throughout admission. Alcohol Screen: Do you sometimes drink beer, wine or other alcoholic beverages within the past 12 months: yes, I haven't had anything to drink in about 3 weeks How many times have you had 5 (healthy men up to 65) OR 4 (women, men over 65/unhealthy) or more drinks in the past year: none (STOP alcohol screen) Alcohol Score Admission Risk Screen: not at risk, Patient reports he has been in and out hospitals frequently d/t alcohol use but does not wish to elaborate at this time. Addictions/Compulsions: Have you used psychoactive or mood altering substances such as prescription medications, over the counter medications, inhalants, organic substances, illegal substances, and/or street drugs within the past 12 months: yes Name (drug 1): marijuana Tobacco Screen: Tobacco Used Within the Past 30 days: yes Tobacco Products Used Past 30 Days: cigarettes Usage in Past 30 days: 4 or less daily (less than 1/4 pack) Order Obtained for Tobacco Cessation Medication: yes Electronic Signatures: Amy Jones (GARY) (Signed 24-Mar-2018 03:22) Authored: Admission Risk Screens, Vaccinations, Malik, Pressure Injury, Behavioral Health Screens Last Updated: 24-Mar-2018 03:22 by Amy Jones (RN) References: 1. Data Referenced From Risk Screen - Adult Emergency 03/22/2018 8:24 PM CLINICAL INTERVENTION - Observed: 03/23/2018 Status: UNK Source: UNIVERSITY PHARMACY 10:26 PM HOSPITALS REPOSITORY Pharmacist's Clinical Intervention: Pharmacist intervention: Contacted physician, Dr. Banuelos Type of recommendation: Helped Dr. Banuelos with med rec - looked at pill bottles in sealed bag downstairs Electronic Signatures: Yolanda Christina (PharmD) (Signed 23-Mar-2018 22:26) Authored: Pharmacist's Clinical Intervention Last Updated: 23-Mar-2018 22:26 by Yolanda Christina (PharmD) HISTORY AND PHYSICAL - Observed: 03/23/2018 Status: COMPLETED Source: UNIVERSITY PSYCHIATRY 9:09 PM HOSPITALS REPOSITORY History Present Illness: Admission Reason: suicidal ideation HPI: cc: suicidal ideation Zaina Doll is a 29 yo M with a past psychiatric history of depression, alcohol use disorder who presented to the ED for psychiatric evaluation due to suicidal ideation without a plan in the setting of increasing life stress and medication non-adherence. ED Course: Vital signs stable. CBC showed mild anemia, CMP was unremarkable. BAL was negative on exam. UDS was positive for cannabis. EKG showed normal sinus rhythm with a QTc of 449. Patient did not require PRNs and/or restraints. Pt was medically cleared by the ED physician and EPAT was consulted and recommended inpatient psychiatric admission. Per EPAT note, 37 yo M with history of alcohol use disorder, severe, homeless, depression vs bipolar, self-presented with thoughts of suicidality and depression in setting of multiple life stressors and medication non-adherence. At time of presentation, patient states he hasn't had a drink for weeks, and that alcohol wasn't a part of what is effecting him right now. His alcohol level was negative at admission, utox positive for marijuana only. Seen by EPAT yesterday evening, at which time he indicated that he was hearing voices and seeing shadows, endorsed anxiety, depression, helplessness and hopelessness and suicidality, and was referred for admission. This morning, patient continues to report that he feels very depressed and is suicidal, that he has been feeling this way increasingly over the past few weeks in setting of medication non-adherence, but also in setting of feeling stressed by a lot of the relationships in his life. He states that he has had serious alcohol issues in past, but is adamant that alcohol and drugs haven't played a role and that he hasn't had a drink in two weeks. He continues to feel that being admitted to inpatient psych would be most helpful. He states sleep, appetite, focus, and energy are all poor and continue to be poor. On interview on 3E, pt reports that he has been feeling like he wants to just lay down and . He did not report a clear plan to kill himself. He states that he has been sleeping poorly and eating less as he has been more depressed and overwhelmed with his life. Pt states that he is recently homeless along with his girlfriend due to his previous legal charges. Pt denies any current drug or alcohol use and states that he has been sober for some weeks. Pt reports that he has some visual hallucinations of colors, sometimes faces as well as auditory hallucinations at times. He states that he follows for psychiatric care at [facility]. Patient states that his girlfriend and mother are supportive of him and encouraged him to go to the hospital because he was not behaving like himself. Patient states that he has been treated for bipolar depression in the past, but is unclear of his current medications. Psych ROS: Anxiety: +Restless/ on edge, +fatigue, +difficulty concentrating, +sleep disturbance Depression: +increased need for sleep, +lack of interest, guilt, energy, concentration, appetite, psychomotor changes, suicidal ideations, hopeless, helpless, worthless, homicidal ideations Claudine: +rapid speech, risky behavior (describes promiscuity), irritable mood, insomnia Psychosis: +auditory hallucinations, +visual hallucinations, Medical ROS: +cough, +congestion; denies any other current medical ROS symptoms Past Medical History: denies any pertinent PMHx Current Home Medications: *Verified in Outpatient Medical Record Past Psychiatric History: Past Psychiatric History: Past Psychiatric History (per chart review, pt interview) Prev Diagnoses: bipolar depression, alcohol use disorder Current mental health agency: [facility] Current outpatient psychiatrist: Dr. Child Date of last appointment with psychiatrist: unknown manager retirement: Nabila [place] Prior hospitalizations: previously at [facility] Prior medications: abilify, gabapentin, omeprazole, vistaril, wellbutrin Prior suicide attempts: denies Past violence: reports DV charges, currently on parole until 10/20 Family Psychiatric History: No known family history of mental illness Substance Abuse History: Tobacco usage: current smoker EtOH: recently sober Illicit drug use: denies Social History: Currently lives: [facility] homeless fci Family: girlfriend, Education: some college Work/Finances: Disabled Marital history/children: , no children Hinduism: not anglican Social support: supportive girlfriend and children Legal History: as note above History: n/a Trauma/Abuse History: does not report Access to Weapons: denies Social History: Smoking Statusmoderate tobacco user (smokes >10 cigs daily, OR > ppd, OR 2-3 cans/pouches loose leaf tobacco per week) Alcohol Usehistory of abuse Drug Usedenies Occupationunemployed History of Trauma: Victim, Perpetrator or Witness of Abuse: no; No significant physical, sexual, emotional abuse, neglect or trauma history was identified on initial assessment of the patient. This shall not be an active focus of treatment, but will continue to be reassessed throughout admission. Allergies: morphine: Hives/Urticaria Horse: Swelling/Edema, Anaphylaxis, Facial Swelling opiates: Unknown narcotic analgesics: Unknown Medications Prior to Admission: OARRS Review: OARRS checked: yes Objective: Objective Information: T PRBPSpO2 [id number]% Date/Time03/23 19: 17: 19: 17: 17:06 Range(36.7C - 36.7C ) (78 - 82 ) (16 - 16 ) (99 - 117 )/ (58 - 64 ) (97% - 99% ) Mental Status Exam General: no acute distress Appearance: appears older than stated age, disheveled appearing, fair grooming and hygiene, multiple tattoos including neck tattoo reading: only those you trust can destroy you Attitude: calm and cooperative Behavior: poor eye contact Motor Activity: no abnormal involuntary movements, no tics or tremors noted Speech: variable rate, slightly pressured at times, normal tone and volume Mood: depressed Affect: congruent with mood, constricted range, slightly irritable Thought Process: coherent, logical, circumstantial, loosely organized Thought Content: Denies SI/HI/AVH. No delusions elicited. Thought Perception: Did not appear to be responding to internal stimuli Cognition: alert and oriented x3, appears of average intelligence, no deficits in cognition, attention, concentration, recent or remote memory noted. Insight: partial, re: mental health needs and necessity for treatment Judgment: partial, regarding circumstances which resulted in inpatient hospitalization Physical Exam General: NAD, dressed in hospital gown HEENT: ncat, PERRLA, EOMI, clear sclera, semi-moist mucus membranes CV: normal s1 and s2, rrr, no murmurs, rubs or gallops heard Respiratory: good air entry, lungs ctab, no wheezes, rales, rhonchi heard Abdomen: soft non-tender, non-distended, no masses palpated Extremities: no swelling, no evidence of trauma Skin: warm, dry, several tattoos all over upper body, no lesions or rashes Neuro: alert and oriented x3, no evidence of cognitive deficits, gait within normal limits, moving all extremities equally Functional Estimates: Estimate of Intelligence: average Estimate of Capacity for Activities of Daily Living: independent Cranial Nerve Exam: Cranial Nerves: II, III, IV, : Visual acuity 20/20 bilaterally. Visual seth normal in all quadrants. Pupils are round, reactive to light and accommodation. Extraocular movements are intact without ptosis. Cranial Nerves: V: Facial sensation is intact bilaterally to dull, sharp, and light touch stimuli Cranial Nerves: VII: Facial muscle strength is normal and equal bilaterally Cranial Nerves: VIII: Hearing is normal bilaterally Cranial Nerves: IX, X: Palate and uvula elevate symmetrically, with intact gag reflex. Voice is normal. Cranial Nerves: XI: Shoulder shrug strong, and equal bilaterally. Cranial Nerves: XII: Tongue protrudes midline and moves symmetrically Reflexes: Biceps, brachioradialis, triceps, patellar, and Achilles are 2/4 bilaterally. No clonus. Plantar reflex is downward bilaterally. Sensation: Sensation is intact bilaterally to pain and light touch. Two-point discrimination is intact. Motor: Good muscle tone. Strength is 5/5 bilaterally at the deltoid, biceps, triceps, quadriceps, and hamstrings. Cerebellar: Cuzonb-jh-lsdw and dgub-sa-abtk test normal bilaterally. Balances with eyes closed (Romberg). Rapid alternating movements normal. Gait is steady with a normal base. Coordination is intact as measured by heel walk and toe walk. Medications: Medications: Continuous Medications No continuous medications are active Scheduled Medications 1. Benzonatate: 100 mg Oral 3 Times a Day 2. busPIRone (BUSPAR): 15 mg Oral Every 8 Hours 3. Folic Acid: 1 mg Oral Daily 4. Gabapentin: 800 mg Oral 3 Times a Day 5. Nicotine 21 mg/ 24 hour TransDermal: 1 patch TransDermal Every 24 Hours 6. Pantoprazole: 40 mg Oral Daily 7. Thiamine: 100 mg Oral Daily 8. Ziprasidone: 60 mg Oral 2 Times a Day PRN Medications 1. Acetaminophen: 650 mg Oral Every 4 Hours 2. diphenhydrAMINE: 50 mg Oral Every 6 Hours 3. diphenhydrAMINE Injectable: 50 mg IntraMuscular Every 6 Hours 4. Haloperidol Lactate: 5 mg Oral Every 6 Hours 5. Haloperidol Lactate Injectable: 5 mg IntraMuscular Every 6 Hours 6. Ibuprofen: 400 mg Oral Every 6 Hours 7. LORazepam: 1 mg Oral Every 6 Hours 8. LORazepam Injectable: 1 mg IntraMuscular Every 6 Hours 9. Magnesium Hydroxide -Al Hydrox -Simethicone Oral Liquid: 30 mL Oral Every 6 Hours Assessment and Plan: Legal Statusinvoluntary Psychiatric Risk Assessment: Violence Risk Assessment: command hallucinations, lower socioeconomic class, major mental illness, male, past history of violence, substance abuse, unemployment Acute Risk of Harm to Others is Considered: moderate Suicide Risk Assessment: , command hallucinations, current psychiatric illness, feelings of hopelessness, life crisis (shame/despair), male, substance abuse, suicidal ideations, plans, behaviors, unmarried Protective Factors against Suicide: hopefulness / future orientation, positive family relationships, social support / connectedness Risk of Harm to Self is Considered: moderate Assessment: Zaina Doll is a 29 yo M with a past psychiatric history of depression, alcohol use disorder who presented to the ED for psychiatric evaluation due to suicidal ideation without a plan in the setting of increasing life stress and medication non-adherence. On interview, pt continued to endorse passive wish, recent anhedonia, increased sleep and poor appetite due to stressors/finances/recent homelessness. Pt noted his girlfriend and mother to be supportive. Pt seems future-oriented toward improvement of his sx with treatment. Due to patients acute symptoms of psychiatric illness, patient will benefit from inpatient hospitalization for safety, stabilization and treatment. Diagnostic Impression: Unspecified depressive disorder Unspecified psychotic disorder Unspecified anxiety disorder vs. adjustment disorder Alcohol use disorder, in early remission Admit to for safety, stabilization and treatment. Restricted to [place]. Legal Status: Involuntary; expires on 03/26/2018 Code Status: Full Code with Suicide and Elopement precautions Medications: pt reports fair compliance with medications, brought medications to hospital, recently filled 2 weeks ago. Will continue home meds for now, until further assessment by primary team. -continue ziprasidone 60 mg BID -continue gabapentin 800 TID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 homeless If patient resides at correction, is correction in agreement: n/a Jail name and number for follow up: Patient being admitted to the Geriatric Unit n/a If Yes, Date and time of Family Meeting: n/a Family Contact Name and Number: n/a Assessment and Recommendation Outcome: Patient's Perception of Outcome Achieved: Pt is in agreement Reviewed Assessment and Recommendations with: Parminder Chung Contact Name: Gianni Iverson Contact Number 1: [phone] Relationship: Mom EPAT Date/Time Details: EPAT Assessment Complete Date/Time: 23-Mar-2018 05:00 Placement Disposition Date/Time: 23-Mar-2018 16:25 Patient Disposition: Disposition Location: [facility] Adult Electronic Signatures: Javy Castañeda (MUSA) (Signed 23-Mar-2018 16:34) Authored: Risk Assessment, Assessment and Plan Aly Gomez (STUDY ABROAD COORDINATOR) (Signed 23-Mar-2018 06:46) Authored: History of Present Illness, Arrival Details, ADULT Psychiatric Review of Symptoms, Past Psychiatric History, Social History, Allergies, Objective, Risk Assessment, Assessment and Plan Last Updated: 23-Mar-2018 16:34 by Javy Castañeda (MUSA) EMR ADDON Collected: 03/22/2018 Status: F Source: DRIVER 8:33 PM HOSPITALS REPOSITORY TYPE CODE TESTS RESULT OUT OF REFERENCE UNITS RANGE LAB EMRAC(LOIN C) ADDON CONFIRMATION REQUEST REC'D Performed By: #### EMRAD #### NO LOCATION NEEDED RISK SCREEN - ADULT Observed: 03/22/2018 Status: UNK Source: [facility] EMERGENCY 8:24 PM HOSPITALS REPOSITORY Preferred Language: Preferred Language: Preferred Language for Discussing Health Care (patient/designee)Sudanese Advanced Directives: Advance Directive Medicalno Advance Directive Information Givenpatient/family declined Family Violence Adult: Abuse Screen: Are you or have you been threatened or abused physically, emotionally, or sexually by anyoneno Suicide / Depression: Suicide/Depression Screen: During the past month, have you often been bothered by feeling down, depressed or hopelessno During the past month, have you often had little interest or pleasure in doing thingsno Have you had any thoughts of harming yourselfyes (1) Have you had any thoughts of harming anyone elseno (1) Learning Assessment (Patient): Learning Assessment (Patient): Patient is Able to be Assessed for Learningyes Factors Influencing Readiness to Learnmotivation to learn Factors that Impact Ability to Learnnone Devices/Methods Used to Communicatenone Learning Preferenceswritten material; skill demonstration Cultural Considerationsnone Developmental Considerationsnone Orthodox Considerationsnone Learning Assessment (Other Learner): Learning Assessment (Other Learner): Other learner availableno Fall Risk Adult: Falls Risk: Altered Mobilitynone Change in Mental Statusno Relevant Medical History / Diagnosisnone Fall Historynone Altered Eliminationno Medications that Might Alter: equilibrium, cognitive judgement or severity of injurynone Sensory Deficitno UNABLE or UNWILLING to Follow Directionsno Patient Identified as a Falls Riskno Provide Rationale not identified as Falls Riskno risk factors identified Pressure Injury: Pressure Injury Present on Admissionno Respiratory / Cough /TB: ED / TB / Cough / Respiratory Screen: Do you have a coughno Smoking/Social History (Required age 13 or older): Smoking Status: never smoker Alcohol Use: history of abuse Drug Use: denies Admission Risk Screen: Significant IndicatorsComplete CAGE: CAGE: Is this an injured patient at a Trauma Center ([facility] / [facility]): no Electronic Signatures: Kristal Caceres) (Signed 22-Mar-2018 20:25) Authored: Preferred Language, Advanced Directives, Family Violence Adult, Suicide / Depression, Learning Assessment (Patient), Learning Assessment (Other Learner), Fall Risk Adult, Pressure Injury, Respiratory / Cough /TB, Smoking/Social History (Required age 13 or older), CAGE Last Updated: 22-Mar-2018 20:25 by Kristal Caceres (RN) References: 1. Data Referenced From Triage - ED 03/22/2018 6:57 PM ACUTE TOXICOLOGY Collected: 03/22/2018 Status: F Source: [facility]ERSITY PANEL, BLOOD 8:19 PM HOSPITALS REPOSITORY TYPE CODE TESTS RESULT OUT OF RANGE REFERENCE UNITS LAB ACETA(KAREN 10.0 - 30.0 ug/mL NC) ACETAMINOPHEN Abnormal <10.0 LAB SALIC(KAREN 4 - 20 mg/dL NC) SALICYLATE Abnormal <3 LAB ALC(LOINC mg/dL ) ALCOHOL <10 Result Comment: FOR MEDICAL USE ONLY. . REF VALUES <10 Performed By: #### DRFRANCINEL #### [facility] [address] [place] [id number] PROVIDER NOTE - ED Observed: 03/22/2018 Status: COMPLETED Source: DRIVER V2 7:33 PM HOSPITALS REPOSITORY Provider Note - ED v2: Chart Review: ED NOTES ED NOTES: HPI: - 37-year-old male with history of schizoaffective disorder, alcoholism in remission presents with concern of suicidal ideation. Patient reports that he has not been sleeping, has been very agitated, and felt ongoing thoughts of self-harm over the last few weeks. He reports his last drink was 3 weeks ago. He does report a history of alcohol withdrawal seizures. No seizures this time. He reports much stress, and anxiety particularly around the holiday season. He reports he has had attempted suicide in the past with overdose of pills. Has not done this today. Denies any chest pain, shortness of breath, nausea, vomiting, diarrhea. He also reports marijuana use. Given his concern of ongoing suicidality came in for assessment. ROS: A complete review of systems was performed and is otherwise negative except as noted in HPI PMH/PSH: Per HPI, EMR FH: Noncontributory SH: +Tobacco, MJ, ETOH Allergies: Per EMR Medications: Per EMR, listed below PE: Vital signs reviewed in nursing triage note, EMR flow sheets, and at patient's bedside. GEN: Disheveled-appearing male, tremulous HEAD: atraumatic EYES: PEERL, EOMI, no scleral icterus NECK: supple, no cervical LAD, no C-spine tenderness CVS/CHEST: reg rate, nl rhythm, audible s1/s2, no m/r/g PULM: CTA b/l no wheezes, crackles, or rhonchi GI: +BS, NT/ND, no palpable abdominal masses EXT: no LE edema, 2+ periph pulses in bilat radial and DP NEURO: CN 2-12 grossly intact, moving all extremities freely SKIN: warm, dry, no rashes or ulcerations PSYCH: Endorses ongoing suicidal ideation, depression, denies any homicidal ideation ED Course/Treatment/MDM: - EKG: Normal sinus rhythm, ventricular rate 85, QRS 82, poor baseline secondary to motion artifact, otherwise there is no obvious ST depressions or elevations appreciated, there is nonspecific ST changes in leads V2, V3 more consistent with early repolarization. No reciprocal changes. MDM - 37-year-old male presents with concern of suicidal ideation. Given their concern for psychiatric presentation, labs were obtained to evaluate for any underlying infection, intoxication, toxidrome, or underlying electrolyte disturbance clouding patients presentation. CBC, electrolyte panel, UDS, blood drug screen were obtained and was unremarkable. At this point patient is MEDICALLY CLEAR awaiting psychiatric evaluation. - Patient was given by mouth Ativan 1, required no further chemical or physical restraints. He exhibited no signs of acute alcohol intoxication or withdrawal. He is outside the window for any alcohol withdrawal seizure. -Patient was evaluated by psychiatric team, appropriate for inpatient psychiatric hospitalization to his ongoing depression, suicidality. Is currently awaiting placement to a psychiatric facility. Required no further chemical or physical restraints. Is MEDICALLY CLEAR Clinical Impression: *See section entitled Clinical Impression Dispo *See section entitled Disposition HISTORY OF PRESENTING ILLNESS ZAINA is a 37 year old Male and was seen by me at 22-Mar-2018 19:11 for a chief complaint of suicidal thoughts . Other complaints include: feeling depressed, SI. denies plan. auditory and visual hallucinations. off meds x days. agitated(1). Triage Information: Most recent Vital Sign Value Date Temp (F): 96.9 03-22-2018 18:57 Temp (C): 36.1 03-22-2018 18:57 Heart Rate (beats/min): 77 03-22-2018 18:57 Respirations (breaths/min): 16 03-22-2018 18:57 SpO2 (%): 99 03-22-2018 18:57 BP Systolic (mm Hg): 123 03-22-2018 18:57 BP Diastolic (mm Hg): 91 03-22-2018 18:57 PAST MEDICAL HISTORY ATTESTATION: I have reviewed and confirmed nurse's/medic's notes for patient's medications, allergies, medical history, and surgical history ALLERGIES/INTOLERANCES: Allergy Allergen: morphine Type: Drug Reaction: Hives/Urticaria Allergen: Horse Type: Environment Reaction: Swelling/Edema Anaphylaxis Facial Swelling Allergen: opiates Type: Drug Category Reaction: Unknown Allergen: narcotic analgesics Type: Drug Category Reaction: Unknown HEALTH HISTORY: Medical History Name:Schizoaffective disorder Code:F25.9 Name:Alcohol addiction Code:F10.20 Name:Overdose of antipsychotic Code:T43.501A Name:Overdose of antidepressant Code:T43.201A Name:Alcohol dependence with uncomplicated withdrawal Code:F10.230 OUTPATIENT MEDICATIONS: Home Medications Review Status for Reconciliation: Complete Med Status: Patient Currently Takes Medications Drug Name: gabapentin 400 mg oral capsule Instructions: 2 cap(s) orally 3 times a day Drug Name: busPIRone 15 mg oral tablet Instructions: 1 tab(s) orally every 8 hours Drug Name: ziprasidone 60 mg oral capsule Instructions: 1 cap(s) orally 2 times a day Drug Name: nicotine 21 mg/24 hr transdermal film, extended release Instructions: 1 patch transdermal every 24 hours Drug Name: thiamine 100 mg oral tablet Instructions: 1 tab(s) orally once a day Drug Name: folic acid 1 mg oral tablet Instructions: 1 tab(s) orally once a day Drug Name: omeprazole 40 mg oral delayed release capsule Instructions: 1 cap(s) orally once a day Drug Name: Tylenol 325 mg oral tablet Instructions: 2 tab(s) orally every 6 hours Drug Name: IBU 600 mg oral tablet Instructions: 1 tab(s) orally every 8 hours Drug Name: benzonatate 100 mg oral capsule Instructions: 1 cap(s) orally 3 times a day, As Needed SIGNIFICANT EVENTS: Immunizations Description:Pneumonia- Pneumococcal polysaccharide vaccine Past Medical History Description:schizoaffective disorder Description:GERD Description:Hypertension (HTN) Description:EtOH abuse Description:Seizure Disorder Additional Notes:from alcohol withdraw CLINICAL IMPRESSION Diagnosis/Annotation: ED Dx Name:Suicidal ideation Code:R45.851 Name:Depression Code:F32.9 Name:Psychosis Code:F29 Prelim Disch Dx Name:History of bipolar disorder Code:Z86.59 Dispostion: hospitalized Admit to: Behavioral Health. Admitting Considerations: Condition on Disposition: stable ATTESTATION Attestation: I saw and evaluated the patient. I personally obtained the goodwin and critical portions of the history and physical exam or was physically present for goodwin and critical portions performed by the resident/fellow. I reviewed the resident/fellows documentation and discussed the patient with the resident/fellow. I agree with the resident/fellows medical decision making as documented in the resident/fellows note with the exception/addition of the following Comments/Additional Findings: Dr. Gross's note: I saw this patient with the senior emergency medicine resident physician in room 28. This patient comes immerse department with depression and anxiety unclear if he has suicidal ideations. Patient has multiple social stressors. Patient being medically evaluated as well as having a psychiatric consultation. The case was endorsed to Dr. Diego at 2300 I have personally performed and/or participated in all of the above services and procedures. I have reviewed all the nurses' notes and have confirmed their findings, and have incorporated those findings into this medical record. I have reviewed the resident history and physician finding; as well as the treatment. On my own examination I agree and incorporated in this document my own history, examination findings and clinical decision making. CRITICAL CARE TIME Is this a critically ill patient: no Electronic Signatures: Richard Chung (Resident)) (Signed 23-Mar-2018 04:56) Authored: Provider Note - ED v2 Lux Gross) (Signed 24-Mar-2018 15:24) Authored: Provider Note - ED v2 Co-Signer: Provider Note - ED v2 Last Updated: 24-Mar-2018 15:24 by Lux Gross) References: 1. Data Referenced From Triage - ED 03/22/2018 6:57 PM CBC AND DIFFERENTIAL Collected: 03/22/2018 Status: F Source: DRIVER 7:03 PM HOSPITALS REPOSITORY TYPE CODE TESTS RESULT OUT OF REFERENCE UNITS RANGE LAB WBCR(LOINC 4.4 - 11.3 x10E9/L ) WBC 5.6 LAB NRBC(LOINC 0.0-0.0 /100 WBC ) NUCLEATED RBC 0.0 LAB RBCCT(LOIN 4.50 - 5.90 x10E12/L C) Low RBC 3.94 LAB HGB(LOINC) 13.5 - 17.5 g/dL Low HGB 12.9 LAB HCT(LOINC) 41.0 - 52.0 % Low HCT 37.3 LAB MCV(LOINC) 80 - 100 fL MCV 95 LAB MCHC2(LOIN 32.0 - 36.0 g/dL C) MCHC 34.6 LAB PLTCT(LOIN 150 - 450 x10E9/L C) PLT 272 LAB RDWCV(LOIN 11.5 - 14.5 % C) RDW-CV 14.1 LAB NEUT(LOINC 40.0 - 80.0 % ) % NEUTROPHIL 62.6 LAB IG(LOINC) 0.0 - 0.9 % % AUTOMATED 0.4 IMMATURE GRAN Result Comment: Percent differential counts (%) should be interpreted in the context of the absolute cell counts (cells/L). LAB LYMPH(LOINC) 13.0 - 44.0 % % LYMPHOCYTE 23.1 LAB MONO(LOINC) 2.0 - 10.0 % % MONOCYTE 12.1 LAB EOS(LOINC) 0.0 - 6.0 % % EOSINOPHIL 1.1 LAB BASO(LOINC) 0.0 - 2.0 % % BASOPHIL 0.7 LAB #NEUT(LOINC) 1.20 - 7.70 x10E9/L NEUTROPHIL 3.53 LAB #LYMP(LOINC) 1.20 - 4.80 x10E9/L LYMPHOCYTE 1.30 LAB #MONO(LOINC) 0.10 - 1.00 x10E9/L MONOCYTE 0.68 LAB #EOS(LOINC) 0.00 - 0.70 x10E9/L EOSINOPHIL 0.06 LAB #BASO(LOINC) 0.00 - 0.10 x10E9/L BASOPHIL 0.04 Performed By: #### CBCDF #### [facility] [address] [place] [address] BASIC METABOLIC PANEL Collected: 03/22/2018 Status: F Source: DRIVER 7:03 PM HOSPITALS REPOSITORY TYPE CODE TESTS RESULT OUT OF REFERENCE UNITS RANGE LAB GLU(LOINC) 74 - 99 mg/dL GLUCOSE 84 LAB SOD(LOINC) 136 - 145 mmol/L SODIUM 137 LAB K(LOINC) 3.5 - 5.3 mmol/L POTASSIUM 3.9 LAB CHLOR(LOIN 98 - 107 mmol/L C) CHLORIDE 100 LAB BIC(LOINC) 21 - 32 mmol/L BICARBONATE 25 LAB ANGAP(LOIN 10 - 20 mmol/L C) ANION GAP 16 LAB UREA(LOINC 6 - 23 mg/dL ) UREA NITROGEN 8 LAB CREA(LOINC 0.50 - 1.30 mg/dL ) CREATININE 0.63 LAB GFRFN(LOIN >60 mL/min/1.7 C) 3m2 GFR-NON AM. >60 LAB GFRAA(LOIN >60 mL/min/1.7 C) 3m2 GFR- AM. >60 Result Comment: CALCULATIONS OF ESTIMATED GFR ARE PERFORMED USING THE MDRD STUDY EQUATION FOR THE IDMS-TRACEABLE CREATININE METHODS. CLIN CHEM 2007;53:766-72 LAB CA(LOINC) 8.6 - 10.6 mg/dL CALCIUM 9.5 Performed By: #### BMP #### [facility] [address] [place] [address] HEPATIC FUNCTION Collected: 03/22/2018 Status: F Source: DRIVER PANEL 7:03 PM HOSPITALS REPOSITORY TYPE CODE TESTS RESULT OUT OF REFERENCE UNITS RANGE LAB ALB(LOINC) 3.4 - 5.0 g/dL ALBUMIN 4.2 LAB TBILI(LOIN 0.0 - 1.2 mg/dL C) BILIRUBIN,TOTAL 0.5 LAB DBILI(LOIN 0.0 - 0.3 mg/dL C) BILIRUBIN,DIRECT 0.1 LAB AP(LOINC) 33 - 120 U/L ALKALINE PHOSPHATASE 75 LAB ALT(LOINC) 10 - 52 U/L ALT 17 Result Comment: Patients treated with Sulfasalazine may generate falsely decreased results for ALT. LAB AST(LOINC) 9 - 39 U/L AST 16 LAB TP(LOINC) 6.4 - 8.2 g/dL TOTAL PROTEIN 6.9 Performed By: #### HEPFP #### [facility] [address] [place] [address] TRIAGE - ED Observed: 03/22/2018 Status: UNK Source: DRIVER 6:57 PM HOSPITALS REPOSITORY Quick Triage: The patient and/or guardian verbally acknowledges placement for services into the following (when Urgent Care Service hours are operating):emergency department Chart Review: CHIEF COMPLAINT ZAINA JOSH is a Male patient with a chief complaint of suicidal thoughts. Other Complaints: feeling depressed, SI. denies plan. auditory and visual hallucinations. off meds x days. agitated Triage Date/Time: 22-Mar-2018 18:57 Vital Signs: Temperature: 96.9F ( 36.1C) taken temporal Blood Pressure: 123/91 Mean: Heart Rate: 77 Respiratory Rate: 16 Pulse Oximetry: 99% on room air, no respiratory support. Height: 6 feet 3.00 inches. 190.5 CM Weight: 195.0 pounds. Calculated 88.4 kg. Calculated BMI (kg/m2): 24.359 Calculated BSA (m2) 2.16 Allergies: yes Patient has suicidal thoughts: yes Patient has homicidal thoughts: no GEOVANNA: 2 PAIN Pain Scale Used: ALLI Past Medical History: Past Medical History Reviewedyes Electronic Signatures: Ajit Murdock) (Signed 22-Mar-2018 19:00) Authored: Triage, Past Medical History Last Updated: 22-Mar-2018 19:00 by Ajit Murdock) CBC AND DIFFERENTIAL Collected: 03/20/2018 Status: F Source: DRIVER 8:14 PM HOSPITALS REPOSITORY TYPE CODE TESTS RESULT OUT OF REFERENCE UNITS RANGE LAB WBCR(LOINC 4.4 - 11.3 x10E9/L ) WBC 8.8 LAB NRBC(LOINC 0.0-0.0 /100 WBC ) NUCLEATED RBC 0.0 LAB RBCCT(LOIN 4.50 - 5.90 x10E12/L C) Low RBC 3.90 LAB HGB(LOINC) 13.5 - 17.5 g/dL Low HGB 12.6 LAB HCT(LOINC) 41.0 - 52.0 % Low HCT 37.3 LAB MCV(LOINC) 80 - 100 fL MCV 96 LAB MCHC2(LOIN 32.0 - 36.0 g/dL C) MCHC 33.8 LAB PLTCT(LOIN 150 - 450 x10E9/L C) PLT 241 LAB RDWCV(LOIN 11.5 - 14.5 % C) RDW-CV High 14.6 LAB NEUT(LOINC 40.0 - 80.0 % ) % NEUTROPHIL 70.2 LAB IG(LOINC) 0.0 - 0.9 % % AUTOMATED 0.3 IMMATURE GRAN Result Comment: Percent differential counts (%) should be interpreted in the context of the absolute cell counts (cells/L). LAB LYMPH(LOINC) 13.0 - 44.0 % % LYMPHOCYTE 18.7 LAB MONO(LOINC) 2.0 - 10.0 % % MONOCYTE 8.0 LAB EOS(LOINC) 0.0 - 6.0 % % EOSINOPHIL 1.8 LAB BASO(LOINC) 0.0 - 2.0 % % BASOPHIL 1.0 LAB #NEUT(LOINC) 1.20 - 7.70 x10E9/L NEUTROPHIL 6.15 LAB #LYMP(LOINC) 1.20 - 4.80 x10E9/L LYMPHOCYTE 1.64 LAB #MONO(LOINC) 0.10 - 1.00 x10E9/L MONOCYTE 0.70 LAB #EOS(LOINC) 0.00 - 0.70 x10E9/L EOSINOPHIL 0.16 LAB #BASO(LOINC) 0.00 - 0.10 x10E9/L BASOPHIL 0.09 Performed By: #### CBCDF #### [facility] [address] [place] [address] BASIC METABOLIC PANEL Collected: 03/20/2018 Status: F Source: DRIVER 8:14 PM HOSPITALS REPOSITORY TYPE CODE TESTS RESULT OUT OF REFERENCE UNITS RANGE LAB GLU(LOINC) 74 - 99 mg/dL GLUCOSE 92 LAB SOD(LOINC) 136 - 145 mmol/L Low SODIUM 134 LAB K(LOINC) 3.5 - 5.3 mmol/L POTASSIUM 4.1 Result Comment: MILD HEMOLYSIS DETECTED. The result may be falsely elevated due to hemolysis or other interferents. Clinical correlation is recommended. Repeat testing may be considered. LAB CHLOR(LOINC) 98 - 107 mmol/L CHLORIDE 99 LAB BIC(LOINC) 21 - 32 mmol/L BICARBONATE 26 LAB ANGAP(LOINC) 10 - 20 mmol/L ANION GAP 13 LAB UREA(LOINC) 6 - 23 mg/dL UREA NITROGEN 7 LAB CREA(LOINC) 0.50 - mg/dL 1.30 CREATININE 0.77 LAB GFRFN(LOINC) >60 mL/min/1.73m 2 GFR-NON AM. >60 LAB GFRAA(LOINC) >60 mL/min/1.73m 2 GFR- AM. >60 Result Comment: CALCULATIONS OF ESTIMATED GFR ARE PERFORMED USING THE MDRD STUDY EQUATION FOR THE IDMS-TRACEABLE CREATININE METHODS. CLIN CHEM 2007;53:766-72 LAB CA(LOINC) 8.6 - 10.6 mg/dL CALCIUM 9.5 Performed By: #### BMP #### [facility] [address] [address] PROVIDER NOTE - ED Observed: 03/20/2018 Status: COMPLETED Source: UNIVERSITY V2 7:37 PM HOSPITALS REPOSITORY Provider Note - ED v2: Chart Review: ED NOTES ED NOTES: CC: Flu-like symptoms HPI: 37-year-old male with history of anxiety, schizoaffective disorder, GERD, and alcoholism presents emergency department with flu-like symptoms. Patient reports over the last week he been experiencing a cough with yellow-green sputum production, endorses shortness of breath and chest discomfort secondary to persistent cough. Patient also reports associated symptoms of fatigue, myalgias, decreased appetite, headache, hoarseness, pharyngitis, and intermittent nausea with a single episode of vomiting. Patient endorses he was exposed to several individuals with similar symptoms. Patient states has been drinking water all day to stay hydrated. No other symptoms endorsed. Patient denies lightheadedness/dizziness, numbness/tingling to extremities, unilateral extremity weakness, palpitations, abdominal pain, diarrhea, constipation, or urinary symptoms. ROS: A 14 pt ROS was completed and is otherwise negative unless mentioned above. Nursing note and triage review of systems reviewed, and any discrepancy noted is reflecting patient interaction and their own report of symptoms. PH/SH: Alcoholism, GERD, Schizoaffective disorder, Anxiety FHx: Reviewed, not relevant to today's event SHx: Daily tobacco use. No alcohol use in several weeks. Occasional marijuana use. No IV drug use. Allergies: Morphine, Opiates Medications: Reviewed; See medication reconciliation Physical Exam Vital signs reviewed via EMR and bedside Appearance: Male in no acute distress. Skin: Intact, dry skin, no lesions, rash, petechiae or purpura. Eyes: PERRLA, EOMs intact. Conjunctiva without injection. No scleral icterus. ENT: TMs visualized bilaterally without indication of infection. Nares patent bilaterally without rhinitis. Patent oronasopharynx. MMM. No tonsillar erythema or exudate. Uvula midline without swelling. Neck: Supple, without meningismus. Pulmonary: Clear bilaterally with good chest wall excursion. No rales, rhonchi or wheezing. No accessory muscle use or stridor. Cardiac: Normal S1, S2 without murmur, rub, gallop or extrasystole. No JVD, Carotids without bruits. Abdomen: Soft, nontender, nondistended. Active bowel sounds in all quadrants. No guarding, rebound tenderness, or palpable masses. Genitourinary: Exam deferred. Musculoskeletal: Full range of motion. no pain, edema, or deformity. Pulses full and equal. No cyanosis, clubbing. No LE edema. Neurological: Cranial nerves II through XII are grossly intact Psychiatric: Appropriate mood and affect. ECG: -1930 NSR at 99 bpm. Normal FL/QRS/QTc intervals. Normal axis/transition. No Q waves. No ST elevation or depression. No indication of acute ischemia or STEMI. No changes in comparison to prior EKG. Medical Decision: -Nurse's evaluation reviewed. Reviewed the prior encounters and diagnostic results. Zaina Doll is a 37-year-old male who presents to the emergency department with flu-like symptoms x 1 weeks. Tachycardiac on arrival, afebrile. Personally obtained history and performed a physical exam as documented above. Patient in no apparent distress. Benign abdominal exam. Suspicion chest discomfort is secondary to persistent cough. Patient to be medicated with NaCl infusion, Toradol, and Zofran. CXR without acute cardiopulmonary findings. Laboratory studies reviewed and appear stable. Re-evaluated patient after treatment, patient reports feeling better. Heart rate improved after IV fluids. Patient to be discharged home with recommendations to follow up with PCP, Ibuprofen and Tylenol for pain, Benzonatate for cough, increased fluid intake and rest, strict return precautions were discussed. Patient agreed with and acknowledge plan of care. Impression: -Viral illness -Persistent cough -Myalgias Disposition: -Discharge -Follow-up PCP in 1-2 weeks Sanjay Payne III, APRN-[facility] Emergency Medicine Disclaimer: This note was dictated by speech recognition. Minor errors in edger saw operator may be present. Please call if questions HISTORY OF PRESENTING ILLNESS ZAINA is a 37 year old Male and was seen by me at 20-Mar-2018 18:47 for a chief complaint of flu-like symptoms . Other complaints include: x5 days. productive cough(1). Triage Information: Most recent Vital Sign Value Date Temp (F): 97.3 03-20-2018 18:10 Temp (C): 36.3 03-20-2018 18:10 Heart Rate (beats/min): 113 03-20-2018 18:10 Respirations (breaths/min): 18 03-20-2018 18:10 SpO2 (%): 98 03-20-2018 18:10 BP Systolic (mm Hg): 145 03-20-2018 18:10 BP Diastolic (mm Hg): 88 03-20-2018 18:10 PAST MEDICAL HISTORY ATTESTATION: I have reviewed and confirmed nurse's/medic's notes for patient's medications, allergies, medical history, and surgical history PSYCHOSOCIAL SCREENING: NO: concerns for safety at home, feelings of depression, feels like hurting others and feels like hurting self CURRENT OR FORMER SUBSTANCE USE: YES: Cigarette/Tobacco, Alcohol and Street Drugs ALLERGIES/INTOLERANCES: Allergy Allergen: morphine Type: Drug Reaction: Hives/Urticaria Allergen: Horse Type: Environment Reaction: Swelling/Edema Anaphylaxis Facial Swelling Allergen: opiates Type: Drug Category Reaction: Unknown Allergen: narcotic analgesics Type: Drug Category Reaction: Unknown HEALTH HISTORY: Medical History Name:Schizoaffective disorder Code:F25.9 Name:Alcohol addiction Code:F10.20 Name:Overdose of antipsychotic Code:T43.501A Name:Overdose of antidepressant Code:T43.201A Name:Alcohol dependence with uncomplicated withdrawal Code:F10.230 OUTPATIENT MEDICATIONS: Home Medications Review Status for Reconciliation: N/A Med Status: Patient Currently Takes Medications Drug Name: gabapentin 400 mg oral capsule Instructions: 2 cap(s) orally 3 times a day Drug Name: busPIRone 15 mg oral tablet Instructions: 1 tab(s) orally every 8 hours Drug Name: ziprasidone 60 mg oral capsule Instructions: 1 cap(s) orally 2 times a day Drug Name: nicotine 21 mg/24 hr transdermal film, extended release Instructions: 1 patch transdermal every 24 hours Drug Name: thiamine 100 mg oral tablet Instructions: 1 tab(s) orally once a day Drug Name: folic acid 1 mg oral tablet Instructions: 1 tab(s) orally once a day Drug Name: omeprazole 40 mg oral delayed release capsule Instructions: 1 cap(s) orally once a day SIGNIFICANT EVENTS: Immunizations Description:Pneumonia- Pneumococcal polysaccharide vaccine Past Medical History Description:schizoaffective disorder Description:GERD Description:Hypertension (HTN) Description:EtOH abuse Description:Seizure Disorder Additional Notes:from alcohol withdraw RESULTS/VITAL SIGNS RESULTS: Recent Lab Results: I have reviewed these laboratory results: Basic Metabolic Panel 20-Mar-2018 20:14:00 ResultValue Glucose, Serum 92 NA 134 L K 4.1 CL 99 Bicarbonate, Serum 26 Anion Gap, Serum 13 BUN 7 CREAT 0.77 GFR-Non >60 GFR- >60 Calcium, Serum 9.5 Complete Blood Count + Differential 20-Mar-2018 20:14:00 ResultValue White Blood Cell Count 8.8 Nucleated Erythrocyte Count 0.0 Red Blood Cell Count 3.90 L HGB 12.6 L HCT 37.3 L MCV 96 MCHC 33.8 PLT 241 RDW-CV 14.6 H Neutrophil % 70.2 Immature Granulocytes % 0.3 Lymphocyte % 18.7 Monocyte % 8.0 Eosinophil % 1.8 Basophil % 1.0 Neutrophil Count 6.15 Lymphocyte Count 1.64 Monocyte Count 0.70 Eosinophil Count 0.16 Basophil Count 0.09 Rapid Influenza A + B Ag 20-Mar-2018 19:27:00 ResultValue Rapid Flu A Test NEGATIVE Rapid Flu B Test NEGATIVE Radiology Results: Impression: 1. No evidence of acute cardiopulmonary process. Xray Chest 2 View PA + Lateral [Mar 20 2018 6:51PM] VITAL SIGNS: T PRBP SpO2O2(LPM) %FiO2 Method 20-Mar-2018 20:50:[id number] 100 room air, no respiratory support 20-Mar-2018 18:10:[id number] 98 room air, no respiratory support EKG INTERPRETATION: EKG Date/Time: 20-Mar-2018 19:30 Rate: 99 Interpretation: normal sinus rhythm, normal axis, normal FL interval and QRS complex. There are no acute ischemic ST or T-wave changes Prior EKG Status: the EKG is unchanged from prior EKG CLINICAL IMPRESSION Diagnosis/Annotation: ED Dx Name:Viral illness Code:B34.9 Name:Muscle pain Code:M79.10 Name:Persistent cough Code:R05 Dispostion: discharged Type: home Condition on Disposition: improved ATTESTATION CRITICAL CARE TIME Is this a critically ill patient: no Electronic Signatures: Sanjay Payne (CLINICAL LIAISON-SEED PRODUCTION FIELD SUPERVISOR) (Signed 20-Mar-2018 21:16) Authored: Provider Note - ED v2 Last Updated: 20-Mar-2018 21:16 by Sanjay Payne (CLINICAL LIAISON-SEED PRODUCTION FIELD SUPERVISOR) References: 1. Data Referenced From Triage - ED 03/20/2018 18:10 RAPID FLU A AND B Collected: 03/20/2018 Status: F Source: DRIVER 7:27 PM HOSPITALS REPOSITORY TYPE CODE TESTS RESULT OUT OF REFERENCE UNITS RANGE LAB FLUA(LOINC Negative ) INFLUENZA A AG, NEGATIVE RAPID Result Comment: A negative test result does not eliminate the possibility of influenza A or B infection as the viral level of the sample may be below the detectable limit of the test. Negative test results may be confirmed by PCR, which is performed on specimens in viral transport medium. . LAB FLUB(LOINC) Negative INFLUENZA B AG, NEGATIVE RAPID Result Comment: A negative test result does not eliminate the possibility of influenza A or B infection as the viral level of the sample may be below the detectable limit of the test. Negative test results may be confirmed by PCR, which is performed on specimens in viral transport medium. . LAB SOURCE(LOINC) Lab Specimen Source Performed By: #### FLUAB #### [facility] [address] [place] [address] RISK SCREEN - ADULT Observed: 03/20/2018 Status: UNK Source: DRIVER EMERGENCY 6:55 PM HOSPITALS REPOSITORY Preferred Language: Preferred Language: Preferred Language for Discussing Health Care (patient/designee)Sudanese Advanced Directives: Advance Directive Medicalno Family Violence Adult: Abuse Screen: Are you or have you been threatened or abused physically, emotionally, or sexually by anyoneno Suicide / Depression: Suicide/Depression Screen: During the past month, have you often been bothered by feeling down, depressed or hopelessno During the past month, have you often had little interest or pleasure in doing thingsno Have you had any thoughts of harming yourselfno (1) Have you had any thoughts of harming anyone elseno (1) Learning Assessment (Patient): Learning Assessment (Patient): Patient is Able to be Assessed for Learningyes Factors Influencing Readiness to Learnacuteness of illness Factors that Impact Ability to Learnnone Devices/Methods Used to Communicatenone Learning Preferencesindividual instruction Cultural Considerationsnone Developmental Considerationsnone Orthodox Considerationsnone Learning Assessment (Other Learner): Learning Assessment (Other Learner): Other learner availableno Fall Risk Adult: Falls Risk: Altered Mobilitynone Change in Mental Statusno Relevant Medical History / Diagnosisnone Fall Historynone Altered Eliminationno Medications that Might Alter: equilibrium, cognitive judgement or severity of injurynone Sensory Deficitno UNABLE or UNWILLING to Follow Directionsno Patient Identified as a Falls Riskno Provide Rationale not identified as Falls Riskno risk factors identified Pressure Injury: Pressure Injury Present on Admissionno Respiratory / Cough /TB: ED / TB / Cough / Respiratory Screen: Do you have a coughno Smoking/Social History (Required age 13 or older): Smoking Status: current every day smoker Alcohol Use: history of abuse, last drink 2 wks ago Drug Use: occasionally marijuana Admission Risk Screen: Significant IndicatorsComplete CAGE: CAGE: Is this an injured patient at a Trauma Center ([facility]): no Electronic Signatures: Laura Quigley (GARY) (Signed 20-Mar-2018 18:56) Authored: Preferred Language, Advanced Directives, Family Violence Adult, Suicide / Depression, Learning Assessment (Patient), Learning Assessment (Other Learner), Fall Risk Adult, Pressure Injury, Respiratory / Cough /TB, Smoking/Social History (Required age 13 or older), CAGE Last Updated: 20-Mar-2018 18:56 by Laura Quigley (RN) References: 1. Data Referenced From Triage - ED 03/20/2018 6:10 PM TH CHEST 2 VIEW PA Observed: 03/20/2018 Status: F Source: [facility] 6:40 PM [facility] REPOSITORY Patient Name: ZAINA DOLL STUDY: CHEST 2 VIEW PA AND LAT; 03/20/2018 6:40 pm INDICATION: Signs/Symptoms: Chest pain and /or palpitations. COMPARISON: 02/23/2018 ACCESSION NUMBER(S): [id number] ORDERING CLINICIAN: JUDITH TERESA FINDINGS: CARDIOMEDIASTINAL SILHOUETTE: Cardiomediastinal silhouette is normal in size and configuration. LUNGS: There is no focal consolidation, sizeable pleural effusion, or pneumothorax. ABDOMEN: No remarkable upper abdominal findings. BONES: No acute osseous changes. IMPRESSION: 1. No evidence of acute cardiopulmonary process. I personally reviewed the images/study and I agree with the findings as stated. This study was interpreted at [place], [place]. Electronically signed by: TRISTON BLACKMAN MD TRIAGE - ED Observed: 03/20/2018 Status: UNK Source: DRIVER 6:10 PM HOSPITALS REPOSITORY Chart Review: CHIEF COMPLAINT ZAINA DOLL is a Male patient with a chief complaint of flu-like symptoms. Other Complaints: x5 days. productive cough Triage Date/Time: 20-Mar-2018 18:10 Vital Signs: Temperature: 97.3F ( 36.3C) taken tympanic Blood Pressure: 145/88 Mean: Heart Rate: 113 Respiratory Rate: 18 Pulse Oximetry: 98% on room air, no respiratory support. Height: 6 feet 3.00 inches. 190.5 CM Weight: 195.0 pounds. Calculated 88.4 kg. (stated) Calculated BMI (kg/m2): 24.359 Calculated BSA (m2) 2.16 Cough lasting greater than 3 weeks: no Travel outside of [facility]: no Allergies: yes Patient has suicidal thoughts: no Patient has homicidal thoughts: no GEOVANNA: 3V Symptom Notes: . Symptoms Are POSITIVE For: body aches, chills, cough, diarrhea, headache and vomiting. Symptoms Are Negative For: abdominal pain, diaphoresis, fever and rash. PAIN Pain Scale Used: ALLI Past Medical History: Past Medical History Reviewedyes Seizure Disorder: Past Medical History, from alcohol withdraw, Active EtOH abuse: Past Medical History, Active Hypertension (HTN): Past Medical History, Active GERD: Past Medical History, Active schizoaffective disorder: Past Medical History, Active Pneumonia- Pneumococcal polysaccharide vaccine: Immunizations, Active, 02-Mar-2018 Electronic Signatures: Yudy Chiu) (Signed 20-Mar-2018 18:12) Authored: Triage, Past Medical History Last Updated: 20-Mar-2018 18:12 by Yudy Chiu (GARY) ED PHYSICIAN REPORT Observed: 03/16/2018 Status: F Source: [facility] 4:38 PM [facility] REPOSITORY Patient: ZAINA DOLL Age: 37 years Sex: Male : 1980 Associated Diagnoses: Alcohol withdrawal Author: JESÚS CHACKO MD Basic Information Time seen: Time Seen: GISELA BENOIT MDLANDO / 03/09/2018 12:51 . History source: Patient. Arrival mode: Private vehicle. History limitation: None. History of Present Illness The patient presents with alcohol withdrawal. The course/duration of symptoms is constant. The substance abused is alcohol. The substance was last ingested last night. Character of withdrawal sympto ms shaky diaphoresis. Therapy today: see nurses notes. Associated symptoms: none. This is a 37 year old male, who presents to the ED for evaluation of EtOH withdrawal and requests for detox. The patient states he started going through EtOH withdrawals, a couple days ago. He was medic ally evaluated at a hospital in [place] at this time and admitted for EtOH detox, but he left AMA. After leaving the hospital, he states that he started drinking heavily again. He states that he drinks hard liquor and beer, but predominantly Equate Mouthwash. He went to [facility] yesterday for evaluation, but left because he did not feel he was getting the quality of care he needed. Pt's last drink was last night and reports drinking a large bottle of Equate Mouthwash. Patient is shaking and diaphoretic on examination. Patient wants to go to detox and denies a history of detox programs in the past fo r substance abuse. Patient admits to occasional THC use, but denies any other illict drug use. No other concerns are voiced at this time.. Review of Systems Constitutional symptoms: Negative except as documented in HPI. Skin symptoms: Negative except as documented in HPI. Eye symptoms: Negative except as documented in HPI. ENMT symptoms: Negative except as documented in HPI. Respiratory symptoms: Negative except as documented in HPI. Cardiovascular symptoms: Negative except as documented in HPI. Gastrointestinal symptoms: Negative except as documented in HPI. Genitourinary symptoms: Negative except as documented in HPI. Musculoskeletal symptoms: Negative except as documented in HPI. Psychiatric symptoms: Negative except as documented in HPI. Endocrine symptoms: Negative except as documented in HPI. Hematologic/Lymphatic symptoms: Negative except as documented in HPI. Allergy/immunologic symptoms: Negative except as documented in HPI. Neurologic symptoms Negative except as documented in HPI. Additional review of systems information: All other systems reviewed and otherwise negative. Health Status Allergies: Allergic Reactions (All) Severity Not Documented Morphine- No reactions were documented.. Medications: (Selected) Prescriptions Prescribed Multiple Vitamins oral tablet: 1 tabs, ORAL, DAILY, 30 tabs, 0 Refill(s) busPIRone 15 mg oral tablet: 15 mg = 1 tabs, ORAL, TID, 90 tabs, 0 Refill(s) folic acid 1 mg oral tablet: 1 mg = 1 tabs, ORAL, DAILY, 30 tabs, 2 Refill(s) gabapentin 800 mg oral tablet: 800 mg = 1 tabs, ORAL, TID, 90 tabs, 0 Refill(s) naltrexone 50 mg oral tablet: 50 mg = 1 tabs, ORAL, DAILY, 30 tabs, 2 Refill(s) nicotine 21 mg/24 hr transdermal film, extended release: 21 mg = 24 hr, Transderm, DAILY, PRN: Urge to Smoke, 30 patches, 0 Refill(s) omeprazole 40 mg oral delayed release capsule: 40 mg = 1 caps, ORAL, BID, 60 caps, 0 Refill(s) thiamine 100 mg oral tablet: 100 mg = 1 tabs, ORAL, TID, 90 tabs, 2 Refill(s) traZODone 100 mg oral tablet: 100 mg = 1 tabs, ORAL, QHS, 30 tabs, 0 Refill(s) ziprasidone 60 mg oral capsule: 60 mg = 1 caps, ORAL, BID, 60 caps, 0 Refill(s), per nurse's notes. Past Medical/ Family/ Social History Surgical history: endoscopy., Reviewed as documented in chart. Family history: Addiction to drug.... Father , Reviewed as documented in chart. Social history: Reviewed as documented in chart, Drug use: Marijuana. Problem list: Active Problems (9) ADHD (attention deficit hyperactivity disorder) At risk for falls Bipolar 1 disorder History of posttraumatic stress disorder (PTSD) Manic affective disorder, recurrent episode, in full remission OCD (obsessive compulsive disorder) Schizo affective schizophrenia Suicidal ideation Tobacco abuse , per nurse's notes. Physical Examination Vital Signs Vital Signs 03/09/2018 11:35 EST Temperature Oral 36.9 degC NORMAL Peripheral Pulse Rate 70 bpm NORMAL Respiratory Rate 18 br/min NORMAL Systolic Blood Pressure 151 mmHg HI Diastolic Blood Pressure 96 mmHg HI SpO2 98 % NORMAL Oxygen Therapy Room air Height/Length Dosing 190.50 cm Weight Dosing 88.6 kg Body Mass Index Dosing 24 . Per nurse's notes. General: Alert, no acute distress, ill-appearing. Skin: Warm, dry, intact, no rash, Diaphoretic, No cyanosis or clubbing. Contusion to the dorsal aspect of the bilateral hands. Head: Normocephalic, atraumatic. Neck: Supple, trachea midline, no tenderness, No thyromegaly, Eye: Pupils are equal, round and reactive to light, extraocular movements are intact, normal conjunctiva, no sclera icterus. no conjunctival injection.. Ears, nose, mouth and throat: Oral mucosa moist. Cardiovascular: Regular rate and rhythm, No murmur, Normal peripheral perfusion, no LE edema. Respiratory: Lungs are clear to auscultation, respirations are non-labored, breath sounds are equal, No rhonchi, rales or wheezes. Gastrointestinal: Soft, Nontender, Non distended, Normal bowel sounds. Psychiatric: Cooperative, normal thought content, Pressured speech. no delusions or hallucinations, Mood and affect: Anxious, hyperactive affect. Neurological Alert and oriented to person, place, time, and situation. Medical Decision Making Documents reviewed: Emergency department nurses' notes, flowsheet, emergency department records, prior records. Electrocardiogram: Time 03/09/2018 16:13:00, rate 68, normal sinus rhythm, [place] is normal. , QT interval Prolonged 394 seconds. Results review: Lab results : Laboratory 03/09/2018 13:41 EST Estimated Creatinine Clearance 148.17 mL/min 03/09/2018 13:25 EST Bilirubin, Direct 0.21 mg/dL HI Ammonia 17 umol/L NORMAL Protime Patient 10.8 seconds NORMAL INR 1.0 NA 03/09/2018 13:05 EST Color, U Yellow Appearance, U Clear Specific [place], U 1.030 NORMAL pH, U 7.0 NORMAL Protein, U 30 mg/dl Glucose Qual, U Negative Ketones, U Trace Bilirubin, U Negative Blood, U Negative Urobilinogen Qual, U <2.0 mg/dl Nitrite, U Negative Leukocyte Esterase, U Negative RBC/HPF, U 2 #/HPF NORMAL WBC/HPF, U 5 #/HPF NORMAL Mucous, U Few Amphetamines, U Negative Barbituates, U Negative PCP, U Negative Benzodiazepines, U Positive Cocaine, U Negative THC, U Positive Opiates, U Negative Ecstasy, U Negative 03/09/2018 12:45 EST BUN 14 mg/dL NORMAL Na 136 mmol/L NORMAL K 4.7 mmol/L NORMAL Chloride 102 mmol/L NORMAL CO2, venous 28.2 mmol/L NORMAL Glucose 89 mg/dL NORMAL Creatinine 0.8 mg/dL NORMAL Total Protein 8.1 g/dL NORMAL Calcium 9.5 mg/dL NORMAL Bilirubin, Total 0.53 mg/dL NORMAL Alk Phos 123 unit/L HI GOT 26 unit/L NORMAL GPT 39 unit/L NORMAL BUN/Creat Ratio 18.0 NA Calculated Osmolality 272 mOsm/kg LOW Globulin 4.2 g/dL NA A/G Ratio 0.9 NA Free T4 0.77 ng/dL NORMAL TSH 0.45 uIU/ml NORMAL ALB 3.9 g/dL NORMAL Alcohol, Serum <3 mg/dL NA Glomerular Filtration Rate >60 mL/min/1.73m? NA GFR AA >60 NA WBC 8.2 x10 RBC 4.57 x10 HGB 14.6 g/dL NORMAL HCT 44.8 % NORMAL MCV 97.9 fL NORMAL MCH 32.0 pg NORMAL MCHC 32.7 g/dL NORMAL RDW 16.4 HI Platelet 306 x1000 NORMAL MPV 7.6 fL NORMAL Nucleated RBC 0 /100WBC NA Red Blood Cell Morphology See Notes Lymph % 25.9 % NA [place] % 9.7 % NA Neutrophil % 62.8 % NA Eosin % 0.8 % NA Basos % 0.8 % NA Lymph Count 2.11 x1000 NORMAL [place] Count 0.79 x1000 NORMAL Neutrophil Count (ANC) 5.12 x1000 NORMAL Eos Count 0.06 x1000 NORMAL Baso Count 0.06 x1000 NORMAL . Reexamination/ Reevaluation Vital signs results included from flowsheet : Vital Signs 03/09/2018 15:00 EST Heart Rate Monitored 68 bpm NORMAL Peripheral Pulse Rate 70 bpm NORMAL Respiratory Rate 19 br/min NORMAL Systolic Blood Pressure 127 mmHg NORMAL Diastolic Blood Pressure 83 mmHg NORMAL Mean Arterial Pressure, Cuff 92 mmHg SpO2 95 % NORMAL Oxygen Therapy Room air Notes: Discussed today's findings, in addition to providing specific details for the plan of care and counseling regarding the diagnosis, prognosis, and need for admission. Questions were answered. Impression and Plan Diagnosis Alcohol withdrawal (PNED [id number], Admitting, Emergency medicine, Medical) Plan Condition Disposition: Admit time 03/09/2018 15:38:00, Admit to Inpatient Unit, SAUNDRA PRADO MD Pt is being admitted to inpatient, medical unit. Counseled: Patient, Regarding diagnosis, Regarding diagnostic results, Regarding treatment plan, Patient indicated understanding of instructions. Notes: Cristine Carbajal, scribing for and in the presence of Dr. Dahlia Benoit MD. Scribe Signature: Keren Ahn, 03/09/2018 13:20 , I, Juan Alberto Ramos, scribing for and in the presence of Dr. Dahlia Benoit MD, Scribe Signature: Keren Rasheed, 03/09/2018 15:42 , I cuate marcelo performed the services described in the documentation, reviewed the documentation recorded by the scribe in my presence and it accurately and completely records my words and actions, Signed by proxy on 03/16/[address] chacko. ESSENCE JACINTO, ATTILLA on 03/16/2018 16:38 NURSING CLINICAL NOTE Observed: 03/13/2018 Status: C Source: [facility] 9:25 AM [facility] REPOSITORY report from Cain GONZALEZ 0710: in to see patient, agreeable to meds before DC. states his ride is no longer coming at 0730. asks for ride to wait for his mom at a [employer] [place], states she works there at 1000. encourage patient to stay here and call his mom for a ride before her shift, patient agreeable. Lung sounds clear, BS Active x 4 quads, some anxiety and restless noted but refuses prn meds. states he needs to get casnd some clothes [facility] to [facility] to [facility] and that is why he needs to go to his mom first,. medicated. encourage patient to not smoke outpaient while wearing patch. no needs, safety maintained 0806: patient sitting in bed. discuss discharge instructions including medication list, prescriptions and precautions. discuss [facility] papers first, and [facility] encourage patient to get I.D. SOO. discuss when to seek medical treatment,. awaiting ride for DC, denies any other needs 0905: patient states unable to get ride and would like a [place] to the rapid station, called and set up. escort patient to ER enterence to look for black escalade, Foundation Assistant Ranulfo. patient states he would like to wait outside for ride NURSING CLINICAL NOTE Observed: 03/13/2018 Status: C Source: [facility] 3:53 AM [facility] REPOSITORY 1900-hand off report received from Stephany GONZALEZautomotive parts salesperson as charted no change in condition no observation of pain or discomfort noted respirations equal and unlabored safety maintained will continue to monitor. NURSING CLINICAL NOTE Observed: 03/12/2018 Status: F Source: [facility] 7:20 PM [facility] REPOSITORY report from Nitza GONZALEZ 0820: patient ambulating in [place]and[place], steady gait, safety maintained 0855: patient vitals stable. reports some anxiety and restlessness, some tremors visualized but patient refuses prn meds. Lung sounds clear, BS Active x 4 quads. strong pulses, strong strength. reports soft formed BM today, medicated per order, no needs safety maintained 1035: patient ambulating in chandler, steady gait, safety maintained 1217: patient awake and alert, talking on phone, no needs. medicated per order, call light within reach safety maintained 1400: spoke with Matthew from [facility], states limited admission times for shelters. DR Prado aware, plans to DC in morning, patient aware and is agreeable. no needs, denies need for anti-anxiety medications. safety maintained 1655: patient ambulating around in room, denies any needs, some anxiety. refuses prn medications, no needs, safety maintained 1845: patient awake and alert. no needs. sitting in bed talking on phone, safety maintained, aware of plans for DC tomorrow DISCHARGE SUMMARY Observed: 03/12/2018 Status: F Source: [facility] REPORT 1:33 PM [facility] REPOSITORY Patient: ZAINA DOLL Age: 37 years Sex: Male : 1980 Associated Diagnoses: None Author: SAUNDRA PRADO MD Subjective -No new signs and symptoms mild tremor present Results Review Labs (Last four charted values) WBC 8.2 (MAR 09) Hgb 14.6 (MAR 09) Hct 44.8 (MAR 09) Plt 306 (MAR 09) Na 142 (MAR 10) 136 (MAR 09) K 4.1 (MAR 10) 4.7 (MAR 09) CO2 29.8 (MAR 10) 28.2 (MAR 09) Cl 108 (MAR 10) 102 (MAR 09) Cr L 0.6 (MAR 10) 0.8 (MAR 09) BUN 14 (MAR 10) 14 (MAR 09) Glucose Random 74 (MAR 10) 89 (MAR 09) Mg 2.2 (MAR 10) Ca L 8.3 (MAR 10) 9.5 (MAR 09) INR 1.0 (MAR 09) Objective Vital Signs (last 24 hrs) Last Charted Temp Oral 36.8 degC (MAR 12 13:12) Heart Rate Peripheral 83 bpm (MAR 12:12) Resp Rate 18 br/min (MAR 12:12) SBP 114 mmHg (MAR 12:12) DBP 83 mmHg (MAR 12:12) SpO2 99 % (MAR 12:) General: Alert and oriented, No acute distress. Eye: Pupils are equal, round and reactive to light, Extraocular movements are intact, Normal conjunctiva. HENT: Normocephalic, Normal hearing, Oral mucosa is moist. Neck: Supple, Non-tender, No carotid bruit. Respiratory: Lungs are clear to auscultation, Respirations are non-labored, Breath sounds are equal. Cardiovascular: Normal rate, Regular rhythm, No murmur, No gallop, No edema. Musculoskeletal: Normal strength. Neurologic: Alert, Oriented, No focal deficits. Psychiatric: Cooperative, Appropriate mood & affect. Medications (23) Active Scheduled: (8) BusPIRone 15MG TAB 15 mg 1 tabs, ORAL, TID FOLIC ACID 1MG TABLET 1 mg 1 tabs, ORAL, DAILY GABAPENTIN 400MG CAPSULE 800 mg 2 caps, ORAL, TID MULTIPLE VITAMIN (THERAPUTIC) 1 tabs, ORAL, DAILY NICOTINE 21MG/24HR PATCH 21 mg, Transderm, DAILY PANTOPRAZOLE 40MG TAB 40 mg 1 tabs, ORAL, DAILY BEFORE BREAKFAST THIAMINE (VIT B1) 100MG TABLET 100 mg 1 tabs, ORAL, DAILY ZIPRASIDONE 20MG CAPSULE 60 mg 3 caps, ORAL, BID Continuous: (0) PRN: (15) ACETAMINOPHEN 325 MG TAB 650 mg 2 tabs, ORAL, [id number] ALUM-MAG SIMETHICONE 30 ML 30 mL, ORAL, E5GYMAI DICYCLOMINE 10MG CAPSULE 20 mg 2 caps, ORAL, M4OMQMX DOCUSATE 50MG/SENNA 8.6MG TABLET 2 tabs, ORAL, DAILY WITH SUPPER HydrOXYzine RALF. 50MG CAPSULE 50 mg 1 caps, ORAL, [id number] IBUPROFEN 400MG TABLET 800 mg 2 tabs, ORAL, D8ZEDXH LOPERAMIDE 2MG CAPSULE 4 mg 2 caps, ORAL, DAILY LOPERAMIDE 2MG CAPSULE 2 mg 1 caps, ORAL, EACH LOOSE STOOL LORAZepam=ATIVAN INJ 2 mg 1 mL, IV Push, Q1HOUR METHOCARBAMOL 750MG TABLET 750 mg 1 tabs, ORAL, I8PZJDU ONDANSETRON 4MG ODT TABLET 4 mg 1 tabs, ORAL, J4GUCLM QUETIAPINE 25MG TAB 25 mg 1 tabs, ORAL, A2MHVSB QUETIAPINE 25MG TAB 25 mg 1 tabs, ORAL, ONCE QUETIAPINE 50MG TAB 50 mg 1 tabs, ORAL, E6CKUZP TrazODONE 50MG TABLET 50 mg 1 tabs, ORAL, QHS/[id number] Plan 37-year-old male with: 1. Acute alcohol withdrawal with CIWA score of 17. Received patient on IV banana bag and on Librium. Patient has failed in the past multiple times. Will consider inpatient admission. 2. Nicotine dependence. on nicotine patch. 3. Schizoaffective disorder, posttraumatic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 MDRO: no Present on Arrival: Device Present on Arrival to ED: no Pressure Ulcer Present on Arrival to ED: no PRIMARY ASSESSMENT ZAINA EDL's primary assessment is Within Normal Limits. The airway is open and patent. Breathing spontaneous and unlabored with clear breath sounds bilaterally. Circulation is normal with good peripheral pulses. Skin is warm and dry and color is normal for race. Past Medical History: Past Medical History Reviewedyes Electronic Signatures: Rose Salazar (GARY) (Signed 08-Mar-2018 15:34) Authored: Triage, Past Medical History Last Updated: 08-Mar-2018 15:34 by Rose Salazar (GARY) DISCHARGE INSTRUCTION Observed: 03/07/2018 Status: F Source: [place] 12:02 PM [facility] REPOSITORY [place] Medical Records Department [address] [place] [id number] Instructions for Home/Discharge Instructions 03/07/18 1140 MR#: [id number] Acct: [id number] Name: ZAINA DOLL Rep #: [id number] : 1980 37 From: Matt Lechuga MD PCP: Care Physician, No Primary Status: ADM IN - Discharge Diagnoses Current Active Problems: Current Active and Chronic Problems Alcohol withdrawal (Acute) Alcohol dependence (Chronic) Nicotine dependence (Chronic) You will use the following diet at home:: Regular Your food should be the consistency of: Regular Discharge Activity: May Not Drive Call your doctor if you observe: Fever of 101 or Higher, Shortness of breath, Dizziness, Fainting spells, Chest pain Additional Instructions: Follow with the [facility] outpatient rehab Allergies/Adverse Reactions: Allergies morphine Allergy (Verified 03/05/18 10:45) Angioedema HORSES Allergy (Uncoded 03/05/18 10:45) Anaphylaxis Medications to take at Discharge Buspirone HCl [Buspar] 15 mg PO TID 03/05/18 Gabapentin [Neurontin] 800 mg PO TIDCM 03/05/18 Geodon 60 mg PO BID 03/05/18 Omeprazole [Prilosec] 40 mg PO BID 03/05/18 Folic Acid 1 mg PO DAILY@0800 03/06/18 Multivitamins,Therapeutic [Multivitamin] 1 tablet PO DAILYCM tablet 03/07/18 Nicotine [Nicoderm Cq] 21 mg TRANSDERM. DAILY patch 03/07/18 Thiamine Hydrochloride [Vitamin B1] 100 mg PO DAILYCM tablet 03/07/18 Primary Care Physician: Care Physician,No Primary [Primary Care Provider] - Please follow up with your Primary Care Physician in: In 1 week Test Results: Test results from this visit will be discussed in further detail at your follow-up appointment, if applicable. 03/07/18 1202 <Electronically signed by Matt Lechuga MD> Date Matt Lechuga MD CC: No Primary Care Physician BASIC METABOLIC Collected: 03/06/2018 Status: F Source: [place] PROFILE (BMP) 6:05 AM [facility] REPOSITORY TYPE CODE TESTS RESULT OUT OF RANGE REFERENCE UNITS LAB L501.0100 74-106 mg/dL Normal GLU 95 Result Comment: Please note revised GLUCOSE reference range effective 2017. LAB L501.1000 7-18 mg/dL Normal BUN 9 LAB L501.1100 0.70-1.30 mg/dL Normal CREAT,SERUM 0.83 Result Comment: The validity of the calculated GFR AND GFRAA in patients over 70 years has not been determined. Clinical correlation is essential. LAB L501.1110 >60 mL/min Normal EST GFR 109 Result Comment: Non- GFR Calc LAB L501.1115 >60 mL/min Normal EST GFR - AA 132 Result Comment: GFR Calc LAB L501.1255 ml/min Normal Estimated CRCL 142.81 LAB L501.1300 10-20 RATIO BUN/CRE Normal 10.8 LAB L501.2200 8.5-10 mg/dL .1 CA Normal 8.5 LAB L501.5300 136-14 mmol/L 5 NA Normal 139 LAB L501.5600 3.5-5. mmol/L 1 K Normal 3.5 LAB L501.5900 98-107 mmol/L CL Normal 104 LAB L501.6100 21.0-3 mmol/L 2.0 CO2 Normal 29.0 LAB L501.6200 5-15 GAP Normal 6 Performed By: #### L500.2500 #### [facility] [address] [place], [address] BEDSIDE GLUCOSE Collected: 03/05/2018 Status: F Source: [place] 10:38 PM [facility] REPOSITORY TYPE CODE TESTS RESULT OUT OF RANGE REFERENCE UNITS LAB L501.080 70-110 mg/dL Normal BEDSIDE GLU 100 Result Comment: MANAGEMENT OF PATIENT CARE PER NURSING PROTOCOL Performed By: #### L501.080 #### [facility] Point of Care [address] [place] [address] EMERGENCY DEPARTMENT Observed: 03/05/2018 Status: F Source: [place] SUMMARY 4:56 PM [facility] REPOSITORY [place] Medical Records Department [address] [place] [address] Emergency Department Summary 03/05/18 1105 MR#: [id number] Acct: [id number] Name: ZAINA DOLL Rep #: [id number] : 1980 37 From: Kojo Case MD PCP: Care Physician, No Primary Status: ADM IN - ER Visit Summary Date of Service: 03/05/18 Chief Complaint: Alcohol withdrawal History of Present Illness: The patient is a 37 M with alcohol withdrawal. He left the hospital 2 days ago AGAINST MEDICAL ADVICE. He was admitted for alcohol withdrawal. He is in the area, staying with a friend. He has been drinking again. His last alcohol intake was this morning around 8 AM, about 3 hours ago. He is unable to quantify how much alcohol he drinks daily, but says a lot. Denies any drug use. He does smoke. He has history of schizoaffective disorder and takes Geodon, gabapentin, and BuSpar. He denies any hallucinations, suicidal thoughts, or homicidal thoughts. He says he has been in contact with someone named Stephany at [facility] in [facility]. He is requesting admission for detox. He does have a history of DTs and withdrawal seizures. Physical Examination: Patient is tachycardic but otherwise vitals are unremarkable. Afebrile. Slightly diaphoretic. Mild tremor. Alert and oriented. Heart is tachycardic but regular. Lungs are clear. Abdomen soft. He has a depressed mood and very mild agitation. No suicidal or homicidal ideation area Test Results: Laboratory studies, tox, alcohol level pending. Emergency Department Course and Treatment: Patient had an IV placed. Seizure precautions. Treated with Ativan while awaiting results. I called [facility] but no unanswered, and I left a voicemail. CBC unremarkable. Potassium 3.3. Alkaline phosphatase 120. Alcohol level 289. Tox screen positive for amphetamines, benzodiazepines, and cannabinoids. Patient had a CIWA score of 32. We were unable to reach anyone at his [facility] facility. He would like to stay here for alcohol withdrawal and detox. I will contact the hospitalist for further care. Treatment Plan: As above Disposition: Admission Impression: 1. Alcohol withdrawal This note was generated with myOrder dictation software. It may contain incorrect words, spelling, and punctuation that were not noted in review of the chart prior to signing ED Disposition - Plan for ED Patient: Chief Complaint: ETOH Intox What to do if you have Problems For any increased pain, shortness of breath, bleeding, nausea or vomiting, chest pain, or any unexpected problems, contact your Primary Care Provider. Call [facility] ([phone]) or report to the closest Emergency Room. Call 911 if necessary. 03/05/18 9150 <Electronically signed by Kojo Case MD> Date Kojo Case MD Cosigner Signature (If Indicated): Date CC: No Primary Care Physician HISTORY AND PHYSICAL Observed: 03/05/2018 Status: F Source: [place] EXAM 1:16 PM [facility] REPOSITORY [place] Medical Records Department [address] [place] [address] History and Physical 03/05/18 1219 MR#: [id number] Acct: [id number] Name: ZAINA DOLL Rep #: [id number] : 1980 37 From: Marcelle Marin MD PCP: Care Physician, No Primary Status: ADM IN Y Location: [facility] [id number] Problem List (1) Alcohol withdrawal Status: Acute (2) Alcohol dependence Status: Chronic Qualifiers: Substance use status: in withdrawal (3) Nicotine dependence Status: Chronic Qualifiers: Nicotine product type: cigarettes Substance use status: in withdrawal Qualified Code(s): F17.213 - Nicotine dependence, cigarettes, with withdrawal History of Present Illness Date of Admission: 03/05/18 Chief Complaint: Muscle cramps, tremors - 1 day The patient is a 37 year old M with PMHx of alcohol and nicotine dependence who has signed out AMA from [facility] this past few days. He says he signed out AMA because he felt better after some doses of Ativan and Valium. He drinks more than 1 L of liquor everyday. He drinks everything including mouthwash. He had tried to moderate his withdrawal symptoms by drinking beer every 4 hours but he is shaking very much. He complains of muscle cramps, tremors. Denied chest pain, diarrhea or abdominal pain. Vitals in the ED showed T 97.9F, HR 112, BP 129/81, RR 18, Spo2 98%. CBCD showed WBC 7.1, Hb 14.0, Plt 250. BMP showed Na 139, K 3.3, Cl 103, HCO3 25, BUN 11, Cr 0.74. Urine tox showed amphetamines, benzodiazepines, cannabinoids. Past Medical History Past Medical History (Chronic Problems): Chronic Problems Alcohol dependence (Chronic) Nicotine dependence (Chronic) Allergies morphine Allergy (Verified 03/05/18 10:45) Angioedema HORSES Allergy (Uncoded 03/05/18 10:45) Anaphylaxis Home Medications: Ambulatory Orders Medication Instructions Recorded Surgical History: no surgical history Psychiatric History: No pertinent psych hx Lives: Alone Smoking Status: Current every day smoker Tobacco Use: Cigarettes, Cigars, Chew Alcohol: Heavy Drugs: Marijuana, - - amphetamines Review of Systems Constitutional: Reports: Malaise, Weakness. Denies: Anorexia, Chills, Fever, Weight Change Eyes: Denies: Blurred vision, Cataracts, Conjunctivae Inflammation, Pain, Redness, Vision Change HEENT: Denies: Difficulty Hearing, Difficulty Swallowing, Head Aches, Hearing Changes, Sinus Congestion, Sinus Drainage Cardiovascular: Denies: Chest Pain, Claudication, Orthopnea, Palpitations, Paroxysmal Noc. Dyspnea Respiratory: Denies: Cough, Hemoptysis, Shortness of breath at rest, Shortness of breath upon exertion, Sputum production Gastrointestinal: Denies: Abdominal Pain, Constipation, Hematemesis, Hematochezia, Nausea, Vomiting Genitourinary: Denies: Dysuria, Frequency, Incontinence, Nocturia Musculoskeletal: Denies: Joint Pain, Joint stiffness, Joint swelling, Joint Tenderness Skin: Denies: Rash, Wounds Neurological: Reports: Tremor. Denies: Focal weakness, Numbness, Tingling Psychiatric: Denies: Anxiety, Depression, Homicidal Ideations, Suicidal Ideations Hematologic/ Lymphatic: Denies: Easy Bruising, Easy Bleeding VTE Information - Inpt Only VTE Present on Admission: No VTE Pharm Prophylaxis ordered?: Yes Patient Problems: Active and Suspected Problems Alcohol withdrawal (Acute) - Physical Exam General: Alert, Oriented x3, Cooperative, - - very anxious HEENT: Atraumatic, PERRLA, EOMI, Normocephalic Oral: Moist Mucosa Neck: Supple, No JVD, Negative Carotid Bruits Lungs: Clear to auscultation, Normal air movement Cardiovascular: Regular rate, Regular Rhythm, Normal S1, Normal S2, Tachycardic Abdomen: Bowel Sounds Present, Soft, Non Tender, Non-Distended, No Hepato-splenomegaly, Passing Flatus Extremities: No edema, Capillary Refill Less than 3 Seconds Skin: - - Tatooes all over including lower eyelids/upper maxillary region Musculoskeletal: No Tenderness to Palpation of Joints or Extremities Lymphatic: No Cervical, Supraclavicular, or Inguinal Adenopathy Neurological: Cranial nerves II-XII grossly intact, - - Tremors of extremities, fine, fidgetting in bed Psych/Mental Status: Normal Affect, Appropriate Vital Signs Temp Pulse Resp BP Pulse Ox 97.9 F 112 H 18 129/81 H 98 03/05/18 10:41 03/05/18 10:41 03/05/18 10:41 03/05/18 10:41 03/05/18 10:41 Oxygen Delivery Method Room Air Weight: 87.543 kg Body Mass Index (BMI) 24.1 Laboratory Tests Past 24 Hrs WBC RBC Hgb Hct MCV MCH MCHC RDW RDW Differential Plt Count MPV Immature Gran % (Auto) Neut % (Auto) Lymph % (Auto) [place] % (Auto) Assessment/Plan All Active Problems Alcohol withdrawal (Acute) 37 year old M with PMHx of alcohol and nicotine dependence who has signed out AMA from [facility] this past few days. He says he signed out AMA because he felt better after some doses of Ativan and Valium. 1. Acute alcohol withdrawal, h/o of heavy alcohol dependence, h/o AMA, moderate, will admit to medsurg, manage on alcohol withdrawal protocol, monitor on CIWA protocol. 2. Hypokalemia, will replace, recheck labs in am 3. Nicotine dependence, on replacement 4. Polysubstance use, urine tox showed amphetamines, cannabinoids. Advised to quit 5. DVT PPx- Early ambulation. Code Visit Inpatient E AND M: [id number] Init Hosp L3 03/05/18 1316 <Electronically signed by Marcelle Marin MD> Date Marcelle Marin MD Cosigner Signature: Date (if applicable) CC: No Primary Care Physician; Marcelle Marin MD Signed URINE DRUG SCREEN Collected: 03/05/2018 Status: F Source: [place] ([facility]ISTA) 11:40 AM [facility] REPOSITORY TYPE CODE TESTS RESULT OUT OF RANGE REFERENCE UNITS LAB L505.0075 TO BE Normal CONFIRMED Result Comment: CONFIRMATORY TESTING FOR ALL POSITIVE URINE DRUG SCREEN RESULTS WILL ONLY BE SENT OUT UPON PHYSICIAN ORDER. VISTA Urine Drug Screen methods provide only preliminary analytical test results. A more specific alternate chemical method must be used in order to obtain a confirmed analytical result. Gas chromatography/mass spectrometery (GC/MS) is the preferred confirmatory method. Clinical consideration and professional judgement should be applied to any drug of abuse test result, particularly when preliminary positive results are used. URINE TCA TESTING MUST BE ORDERED SEPARATELY. USE TEST MNEMONIC: [facility] LAB L505.5005 VISTA UDS PH 6 Normal LAB L505.5015 <1000 High ng/mL AMPHETAMINES POSITIVE LAB L505.5025 < 200 ng/mL BARBITIURATES Normal NEGATIVE LAB L505.5035 < 200 High ng/mL BENZODIAZIPINE POSITIVE LAB L505.5045 < 300 ng/mL COCAINE Normal NEGATIVE LAB L505.5055 < 500 ng/mL ECSTACY Normal NEGATIVE LAB L505.5065 < 300 ng/mL METHADONE Normal NEGATIVE LAB L505.5075 < 300 ng/mL OPIATES Normal NEGATIVE LAB L505.5085 < 25 ng/mL PCP Normal NEGATIVE LAB L505.5095 < 50 High ng/mL THC POSITIVE Performed By: #### L505.5000 #### [facility] Kisha [facility] [place], [address] CBC W/DIFF, AUTOMATED Collected: 03/05/2018 Status: F Source: [place] 10:55 AM [facility] REPOSITORY TYPE CODE TESTS RESULT OUT OF RANGE REFERENCE UNITS LAB L100.1000 4.4-11.0 K/mm3 Normal WBC 7.1 LAB L100.1200 4.6-6.2 M/mm3 Low RBC 4.36 LAB L100.1300 13.0-16.5 g/dl Normal HGB 14.0 LAB L100.1400 40-54 % Normal HCT 41.5 LAB L100.1500 80-94 fL High MCV 95.2 LAB L100.1600 27.0-32.0 pg High MCH 32.1 LAB L100.1700 32-36 g/gl Normal MCHC 33.7 LAB L100.1810 11.6-14.6 % High RDW CV 15.4 LAB L100.1820 35.1-43.9 fl High RDW SD 53.0 LAB L100.1900 150-450 K/mm3 Normal PLT 250 LAB L100.2000 6.2-12.0 fl Normal MPV 8.8 LAB L100.2100 47-70 % Normal NEUT% 49.8 LAB L100.2200 19-41 % Normal LY% 37.7 LAB L100.2300 0-10 % High MONO% 10.7 LAB L100.2400 0-5 % Normal EO% 0.7 LAB L100.2500 0-1 % Normal BASO% 0.8 LAB L100.2550 0.0-0.9 % Normal IM GRAN % 0.300 Result Comment: IG% - Immature Granulocytes (promyelocytes, myelocytes and metamyelocytes) > 1% indicates that a LEFT SHIFT is Present. LAB L100.2620 2.0-7.7 X10 3/uL Normal Absolute Neut 3.5 LAB L100.2720 0.83-4.51 X10 3/ul Normal Absolute Lymph 2.68 Performed By: #### L100.0100 #### [facility] [address] [facility] [place], [address] COMPREHENSIVE METABOLIC Collected: 03/05/2018 Status: F Source: [facility] 10:55 AM [facility] REPOSITORY TYPE CODE TESTS RESULT OUT OF RANGE REFERENCE UNITS LAB L501.0100 74-106 mg/dL Normal GLU 96 Result Comment: Please note revised GLUCOSE reference range effective 2017. LAB L501.1000 7-18 mg/dL Normal BUN 7 LAB L501.1100 0.70-1.30 mg/dL Normal CREAT,SERUM 0.74 Result Comment: The validity of the calculated GFR AND GFRAA in patients over 70 years has not been determined. Clinical correlation is essential. LAB L501.1110 >60 mL/min Normal EST GFR 126 Result Comment: Non- GFR Calc LAB L501.1115 >60 mL/min Normal EST GFR - AA 152 Result Comment: GFR Calc LAB L501.1255 ml/min Normal Estimated CRCL 160.18 LAB L501.1300 10-20 RATIO Low BUN/CRE 9.5 LAB L501.1500 6.4-8. g/dL 2 T PROT Normal 7.5 LAB L501.1800 3.2-5. g/dL 0 ALB Normal 3.8 LAB L501.1950 2.2-4. g/dL 2 GLOB Normal 3.7 LAB L501.2000 0.9-2. RATIO 4 A/G Normal 1.0 LAB L501.2200 8.5-10 mg/dL Low .1 CA 8.3 LAB L501.4100 15-37 U/L AST Normal 25 LAB L501.4305 45-117 U/L High ALK P 120 LAB L501.4405 16-61 U/L ALT Normal 45 LAB L501.4600 0.20-1 mg/dL .00 T BILI Normal 0.40 LAB L501.5300 136-14 mmol/L 5 NA Normal 139 LAB L501.5600 3.5-5. mmol/L Low 1 K 3.3 LAB L501.5900 98-107 mmol/L CL Normal 103 LAB L501.6100 21.0-3 mmol/L 2.0 CO2 Normal 25.0 LAB L501.6200 5-15 GAP Normal 11 Performed By: #### L500.4050 #### [facility] [address] [place], [address] ALCOHOL, BLOOD Collected: 03/05/2018 Status: F Source: [place] [facility] 10:55 AM [facility] REPOSITORY TYPE CODE TESTS RESULT OUT OF RANGE REFERENCE UNITS LAB L501.9100 mg/dL Normal SERUM 289.0 ETOH Result Comment: The serum:whole blood ethanol ratio is approximately 1.14 and varies slightly with hematocrit. Medical Alcohol reference interval and critical value in non-tolerant individuals; 50 - 100 Impairment 100 Intoxication 100 - 250 Severe Poisoning 250 - 400 Deep/possible fatal coma Performed By: #### L501.9100 #### [facility] [address] [place], [place], [address] DISCHARGE SUMMARY Observed: 03/02/2018 Status: COMPLETED Source: DRIVER 4:16 PM HOSPITALS REPOSITORY Send Summary: Discharge Summary Providers: Provider RoleProvider Name ConsultingPsych Consult AttendingPriti Gresham Note Recipients: none Discharge: Summary: Admission Date: .01-Mar-2018 04:26:00 Discharge Date: 02-Mar-2018 Attending Physician at Discharge: Priti Gresham Admission Reason: ETOH Withdrawal(1) Final Discharge Diagnoses: EtOH Withdrawal Procedures: none Condition at Discharge: Other Disposition at Discharge: Against Medical Advice Vital Signs: T PRBPSpO2 [id number]/7898% Date/Time03/02 7: 12: 7: 12: 7:13 Range(36.1C - 36.8C ) (71 - 109 ) (18 - 22 ) (102 - 139 )/ (72 - 112 ) (93% - 99% ) Physical Exam: Gen: NAD Neuro: no tremor noted Psych: no / Hospital Course: 37 year old male with past medical history of schizoaffective disorder, polysubstance abuse (EtOH, tobacco, marijuana, and cocaine), and multiple admissions for EtOH withdrawal that presents to [facility] ED on 03/01/18 for EtOH withdrawal. He most recently was admitted to [facility] from 02/25/18- 02/28/18 for EtOH withdrawal and left AMA the morning of 02/28. He states that after discharge he felt like he was going into withdrawals so he would drink a beer every four hours to try and prevent it (drank about 4 beers throughout the day). He thought that he should probably get some help so he came back to [facility]. In the ED his pulse was elevated to 122 but otherwise vitals stable. Basic labs unremarkable. Utox was positive for benzodiazepines. Serum EtOH was 211. The patient was started on CIWA protocol with ativan and admitted to medicine. On the floor the patient was originally started on CIWA protocol with Ativan. His score were high requiring frequent doses of Ativan. Chem dep/ psychiatry was consulted and recommended switching patient to a Librium taper for withdrawal with oral Ativan only as needed for objective signs of withdrawal. However, the patient decided to leave AMA prior to being started on the Librium taper. Immunizations: Immunizations: 02-Mar-2018 Pneumonia- Pneumococcal polysaccharide vaccine: Immunizations, 02-Mar-2018 Discharge Information: and Continuing Care: Discharge Instructions: patient left AMA Discharge Medications: Home Medication gabapentin 400 mg oral capsule - 2 cap(s) orally 3 times a day busPIRone 15 mg oral tablet - 1 tab(s) orally every 8 hours ziprasidone 60 mg oral capsule - 1 cap(s) orally 2 times a day nicotine 21 mg/24 hr transdermal film, extended release - 1 patch transdermal every 24 hours thiamine 100 mg oral tablet - 1 tab(s) orally once a day folic acid 1 mg oral tablet - 1 tab(s) orally once a day omeprazole 40 mg oral delayed release capsule - 1 cap(s) orally once a day PRN Medication Lab Results - Pending: None Radiology Results - Pending: None Electronic Signatures: Priti Gresham) (Signed 02-Mar-2018 16:20) Authored: Send Summary, Summary Content, Immunizations, Ongoing Care, Signature/Cosignature/Attestation Last Updated: 02-Mar-2018 16:20 by Priti Gresham) References: 1. Data Referenced From Consult - Psychiatry 03/01/2018 12:50 PM DAILY PROGRESS NOTE - Observed: 03/02/2018 Status: COMPLETED [facility] 11:04 AM [facility]IT[facility] REPOSITORY Subjective Data: ZAINA DOLL is a 37 year old Male with history of multiple admsisions for ethanol withdrawal with seizures and delirium tremens who is Hospital Day # 2 for ethanol withdrawal. Other PMH includes schizoaffective disorder bipolar type, and polysubstance abuse (ethanol, marijuana and cocaine). In the past 24 hours, he has received 20 mg ativan. Today he was interviewed immediately after an ativan dose. He expressed a desire to leave with a prescription to handle his withdrawals, and mentioned leaving AMA. He seemed amenable to the suggestion of staying given his prior experiences with seizures during withdrawal He does endorse back sweatiness and acknowledges that he is still in withdrawal. Objective: Objective Information: T PRBPSpO2 [id number]/85036% Date/Time03/02 7: 10: 7: 10: 7:13 Range(36.1C - 37.1C ) (78 - 114 ) (18 - 22 ) (114 - 139 )/ (74 - 112 ) (93% - 100% ) Highest temp of 37.1 C was recorded at 03/01 12:00 Pain reported at 03/02 1:00: 6 Pain reported at 03/02 7:00: 4 ---- Intake and Output ----- Mn/Dy/Year TimeIntakeOutputNet Mar 02, 2018 6:00 [id number] Mar 01, 2018 10:00 [id number] Mar 01, 2018 2:00 [id number] The Intake and Output Totals for the last 24 hours are: [id number] Mental Status Exam: General: NAD. Appearance: Appears stated age, average size, reasonable hygiene (pt just washed up), hair with bowl cut and combed forward, multiple tattoos noted on chest, arms, wearing hospital attire and lying then sitting in bed. Tongue piercing present Attitude: Cooperative, mostly calm Behavior: Pleasant, mildly restless intermittently, engages in interview and answers questions appropriately. Motor Activity: No PMA. Mild tongue fasciculations noted. Gait not assessed. Speech: Normal rate, volume. Somewhat monotone, no halting, and normal syntax. Mood: Okay Affect: mood congruent, within a restricted range, mildly blunted affect. Thought Process: Organized and Linear; Associations are logical Thought Content: Denies Ideations; No paranoid delusions noted Thought Perception: Pt denies AH, but endorses shadows which he attributes to ethanol withdrawal; Pt does not appear internally stimulated. Cognition: Alert, oriented --No deficits noted. Adequate fund of knowledge. No deficit in recent and remote memory. No deficits in attention, concentration or language. Insight: Fair Judgment: Limited Physical Exam + palmar diaphoresis (mild) + tongue fasciculations (mild) gait, reflexes not assessed Medications: Continuous Medications No continuous medications are active Scheduled Medications 1. busPIRone (BUSPAR): 15 mg Oral Every 8 Hours 2. Enoxaparin SubCutaneous: 40 mg SubCutaneous Every 24 Hours 3. Folic Acid: 1 mg Oral Daily 4. Gabapentin: 800 mg Oral 3 Times a Day 5. Multivitamin with Minerals: 1 tablet(s) Oral Daily 6. Nicotine 21 mg/ 24 hour TransDermal: 1 patch TransDermal Every 24 Hours 7. Pantoprazole: 40 mg Oral Daily 8. Ziprasidone: 60 mg Oral 2 Times a Day PRN Medications 1. Acetaminophen: 650 mg Oral Every 4 Hours 2. Ibuprofen: 400 mg Oral Every 6 Hours 3. LORazepam Injectable: 0.5 mg IntraVenous Push Every 2 Hours 4. LORazepam Injectable: 1 mg IntraVenous Push Every 2 Hours 5. LORazepam Injectable: 2 mg IntraVenous Push Every 2 Hours 6. Melatonin: 3 mg Oral At Bedtime Recent Lab Results: Results: I have reviewed these laboratory results: Renal Function Panel 02-Mar-2018 08:14:00 ResultValue Glucose, Serum 81 NA 138 K 3.7 CL 104 Bicarbonate, Serum 24 Anion Gap, Serum 14 BUN 22 CREAT 0.78 GFR-Non >60 GFR- >60 Calcium, Serum 9.3 Phosphorus, Serum 3.7 ALB 3.8 Magnesium, Serum 02-Mar-2018 08:14:00 ResultValue Magnesium, Serum 2.01 Complete Blood Count 02-Mar-2018 07:14:00 ResultValue White Blood Cell Count 6.8 Nucleated Erythrocyte Count 0.0 Red Blood Cell Count 4.13 L HGB 13.5 HCT 41.1 MCV 100 MCHC 32.8 PLT 218 RDW-CV 15.0 H Drug Screen, Urine 01-Mar-2018 05:12:00 ResultValue Comments. SEE BELOW Drug screen results are presumptive and should not be used to assess compliance with prescribed medication. Contact the performing [facility] laboratory to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 a previous pneumonia vaccine:no/unknown... Immunocompetent persons with underlying chronic conditions or reside in termite control technician care facilitiesalcoholism Pneumonia vaccine NOT indicated due to:No contraindications to vaccine Pneumonia vaccine indicatedyes Malik: Skin - Malik Scale: Malik: Sensory Perception (response to environment)(4) no impairment Malik: Moisture (degree skin exposed to moisture)(4) rarely moist Malik: Activity (ability to walk)(4) walks frequently Malik: Mobility (amount/control of body movement)(4) no limitation Malik: Nutrition (quality of food intake)(3) adequate Malik: Friction and Shear(3) no apparent problem Malik: Score22 Significant Indicatiors: Significant Indicators: Complete Pressure Injury: Pressure Injury Present on Admissionno Electronic Signatures: Lance Greenberg) (Signed 01-Mar-2018 10:38) Authored: Admission Risk Screens, Vaccinations, Malik, Pressure Injury Last Updated: 01-Mar-2018 10:38 by Lance Greenberg (RN) References: 1. Data Referenced From Risk Screen - Adult Emergency 03/01/2018 4:38 AM DRUG SCREEN,URINE Collected: 03/01/2018 Status: F Source: UNIVERSITY 5:12 AM HOSPITALS REPOSITORY TYPE CODE TESTS RESULT OUT OF REFERENCE UNITS RANGE LAB DRCOM(LOINC ) DRUG SCREEN SEE BELOW COMMENT Result Comment: Drug screen results are presumptive and should not be used to assess compliance with prescribed medication. Contact the performing [facility] laboratory to add-on definitive confirmatory testing if clinically indicated. . Toxicology screening results are reported qualitatively. The concentration must be greater than or equal to the cutoff to be reported as positive. The concentration at which the screening test can detect an individual drug or metabolite varies. The absence of expected drug(s) and/or drug metabolite(s) may indicate non-compliance, inappropriate timing of specimen collection relative to drug administration, poor drug absorption, diluted/adulterated urine, or limitations of testing. For medical purposes only; not valid for forensic use. . Interpretive questions should be directed to the laboratory medical directors. LAB AMPH(LOINC) NEGATIVE AMPHETAMINE PRESUMPTIVE SCREEN,U NEGATIVE Result Comment: CUTOFF LEVEL: 500 NG/ML Cross-reactivity has been reported with high concentrations of the following drugs: buproprion, chloroquine, chlorpromazine, ephedrine, mephentermine, fenfluramine, phentermine, phenylpropanolamine, pseudoephedrine, and propranolol. LAB ARIANNA(LOINC) NEGATIVE BARBITURATES PRESUMPTIVE SCREEN,U NEGATIVE Result Comment: CUTOFF LEVEL: 200 NG/ML LAB BENZO(LOINC) NEGATIVE BENZODIAZEPINES Abnormal SCREEN,U PRESUMPTIVE POSITIVE Result Comment: CUTOFF LEVEL: 200 NG/ML LAB SHIRLEY(LOINC) NEGATIVE CANNABINOIDS PRESUMPTIVE SCREEN,U NEGATIVE Result Comment: CUTOFF LEVEL: 50 NG/ML LAB COCAI(LOINC) NEGATIVE COCAINE PRESUMPTIVE METABOLITE NEGATIVE SCREEN,U Result Comment: CUTOFF LEVEL: 150 NG/ML LAB METHD(LOINC) NEGATIVE PRESUMPTIVE METHADONE NEGATIVE SCREEN,U Result Comment: CUTOFF LEVEL: 150 NG/ML The metabolite V-ndvtx-itmbktqvnmwqgc (LAAM) is not detected by this method in concentrations that would be found in the urine of patients on LAAM therapy. LAB OPIAT(LOINC) NEGATIVE PRESUMPTIVE OPIATES NEGATIVE SCREEN,U Result Comment: CUTOFF LEVEL: 300 NG/ML The opiate screen does not detect fentanyl, meperidine, or tramadol. Oxycodone is not consistently detected (refer to Oxycodone Screen, Urine result). LAB OXYS2(LOINC) NEGATIVE PRESUMPTIVE OXYCODONE NEGATIVE SCREEN,U Result Comment: CUTOFF LEVEL: 100 NG/ML This test will accurately detect both oxycodone and oxymorphone. LAB PCP(LOINC) NEGATIVE PCP PRESUMPTIVE SCREEN,U NEGATIVE Result Comment: CUTOFF LEVEL: 25 NG/ML Cross-reactivity has been reported with dextromethorphan. Performed By: #### [id number] #### [facility] [id number] [place] [address] CBC Collected: 03/01/2018 Status: F Source: DRIVER 5:06 AM [facility] REPOSITORY TYPE CODE TESTS RESULT OUT OF REFERENCE UNITS RANGE LAB WBCR(LOINC 4.4 - 11.3 x10E9/L ) WBC 10.6 LAB NRBC(LOINC 0.0-0.0 /100 WBC ) NUCLEATED RBC 0.0 LAB RBCCT(LOIN 4.50 - 5.90 x10E12/L C) RBC 4.63 LAB HGB(LOINC) 13.5 - 17.5 g/dL HGB 14.9 LAB HCT(LOINC) 41.0 - 52.0 % HCT 42.4 LAB MCV(LOINC) 80 - 100 fL MCV 92 LAB MCHC2(LOIN 32.0 - 36.0 g/dL C) MCHC 35.1 LAB PLTCT(LOIN 150 - 450 x10E9/L C) PLT 218 LAB RDWCV(LOIN 11.5 - 14.5 % C) High RDW-CV 15.2 Performed By: #### CBC #### [facility] [id number] [place] [address] ALCOHOL Collected: 03/01/2018 Status: F Source: DRIVER 5:06 AM [facility] REPOSITORY TYPE CODE TESTS RESULT OUT OF RANGE REFERENCE UNITS LAB ALC(LOINC) mg/dL Abnormal ALCOHOL 211 Result Comment: FOR MEDICAL USE ONLY. . REF VALUES <10 Performed By: #### ALC #### [facility] [id number] [place] [address] MAGNESIUM Collected: 03/01/2018 Status: F Source: DRIVER 5:06 AM HOSPITALS REPOSITORY TYPE CODE TESTS RESULT OUT OF REFERENCE UNITS RANGE LAB MG(LOINC) 1.60 - 2.40 mg/dL MAGNESIUM 2.10 Performed By: #### MG #### [facility] [address] [place] [address] RENAL FUNCTION PANEL Collected: 03/01/2018 Status: F Source: DRIVER 5:06 AM HOSPITALS REPOSITORY TYPE CODE TESTS RESULT OUT OF REFERENCE UNITS RANGE LAB GLU(LOINC) 74 - 99 mg/dL GLUCOSE 84 LAB SOD(LOINC) 136 - 145 mmol/L SODIUM 141 LAB K(LOINC) 3.5 - 5.3 mmol/L POTASSIUM 4.0 LAB CHLOR(LOIN 98 - 107 mmol/L C) CHLORIDE 103 LAB BIC(LOINC) 21 - 32 mmol/L BICARBONATE 25 LAB ANGAP(LOIN 10 - 20 mmol/L C) ANION GAP 17 LAB UREA(LOINC 6 - 23 mg/dL ) UREA NITROGEN 6 LAB CREA(LOINC 0.50 - 1.30 mg/dL ) CREATININE 0.80 LAB GFRFN(LOIN >60 mL/min/1.7 C) 3m2 GFR-NON AM. >60 LAB GFRAA(LOIN >60 mL/min/1.7 C) 3m2 GFR- AM. >60 Result Comment: CALCULATIONS OF ESTIMATED GFR ARE PERFORMED USING THE MDRD STUDY EQUATION FOR THE IDMS-TRACEABLE CREATININE METHODS. CLIN CHEM 2007;53:766-72 LAB CA(LOINC) 8.6 - 10.6 mg/dL CALCIUM 9.7 LAB PHOS(LOINC) 2.5 - 4.9 mg/dL PHOSPHORUS 3.0 Result Comment: The performance characteristics of phosphorus testing in heparinized plasma have been validated by the individual laboratory site where testing is performed. Testing on heparinized plasma is not approved by the FDA; however, such approval is not necessary. LAB ALB(LOINC) 3.4 - 5.0 g/dL ALBUMIN 4.5 Performed By: #### RENAL #### [facility] [address] [place] [address] PROVIDER NOTE - ED Observed: 03/01/2018 Status: COMPLETED Source: [place] [id number] 5:01 AM HOSPITALS REPOSITORY Provider Note - ED v2: Chart Review: ED NOTES ED NOTES: History of present illness: Patient is a 37-year-old male presenting for alcohol withdrawal. Patient signed out AGAINST MEDICAL ADVICE from [facility] yesterday evening. He went home and drank 3 beers to keep himself from going through withdrawal. The patient has gone through detox several times over the past 3 [facility] Patient states that he normally drinks 1 L of liquor daily. He also has coingestions of marijuana and cocaine occasionally. He states today he has had tremors, anxiety, diaphoresis and palpitations. He is afraid that he will have another seizure which she has had in the past. Past medical history: Alcohol abuse, GERD, schizophrenia Medications: BuSpar, gabapentin, omeprazole Allergies: Morphine and horses Social: Daily tobacco smoker, daily alcohol drinker, occasional marijuana use, occasional cocaine use, denies all other drug use Physical Exam: Appearance: Alert, oriented , cooperative, chronically ill appearing man Skin: Intact, dry skin, no lesions, rash, petechiae or purpura. Eyes: PERRLA, EOMs intact ENT: Hearing grossly intact. mucus membranes moist. Neck: Supple, Trachea at midline. Pulmonary: Clear bilaterally with good chest wall excursion. No rales, rhonchi or wheezing. No accessory muscle use or stridor. Cardiac: Normal S1, S2 without murmur, rub, gallop or extrasystole. Abdomen: Soft, nontender, No palpable organomegaly. No rebound or guarding Genitourinary: Exam deferred. Musculoskeletal: Full range of motion. no pain, edema, or deformity. Pulses full and equal. Neurological: Cranial nerves II through XII are grossly intact, normal sensation, no weakness, no focal findings identified. Patient has abnormal finger to nose and is slightly tremulous. Psychiatric: Anxious Hospital course: Patient is a 37-year-old male presenting for alcohol withdrawal. Patient's laboratory values are significant for an elevated alcohol level of 211. The patient's clinical picture appears to be potentially induced by benzo withdrawal. Patient is persistently tachycardic and had initial CIWA score of 12 and was appropriately given benzodiazepines. Patient will be transitioned to a longer acting benzodiazepines. The patient was admitted to the internal medicine service for further management of his benzo withdrawal. The remainder of the patient's laboratory values were unremarkable. He was given additional resources about outpatient rehabilitation. HISTORY OF PRESENTING ILLNESS ZAINA is a 37 year old Male and was seen by me at 01-Mar-2018 04:39 for a chief complaint of (etoh withdrawl, SI) . Other complaints include: states last drink a couple hours ago. pt was inpatient at [facility] today and left AMA, SI(1). Triage Information: Most recent Vital Sign Value Date Temp (F): 97.7 03-01-2018 04:28 Temp (C): 36.5 03-01-2018 04:28 Heart Rate (beats/min): 121 03-01-2018 04:28 Respirations (breaths/min): 22 03-01-2018 04:28 SpO2 (%): 98 03-01-2018 04:28 BP Systolic (mm Hg): 122 03-01-2018 04:28 BP Diastolic (mm Hg): 85 03-01-2018 04:28 PAST MEDICAL HISTORY ATTESTATION: I have reviewed and confirmed nurse's/medic's notes for patient's medications, allergies, medical history, and surgical history ALLERGIES/INTOLERANCES: Allergy Allergen: morphine Type: Drug Reaction: Hives/Urticaria Allergen: Horse Type: Environment Reaction: Swelling/Edema Anaphylaxis Facial Swelling Allergen: opiates Type: Drug Category Reaction: Unknown Allergen: narcotic analgesics Type: Drug Category Reaction: Unknown HEALTH HISTORY: Medical History Name:Schizoaffective disorder Code:F25.9 Name:Alcohol addiction Code:F10.20 Name:Overdose of antipsychotic Code:T43.501A Name:Overdose of antidepressant Code:T43.201A Name:Alcohol dependence with uncomplicated withdrawal Code:F10.230 OUTPATIENT MEDICATIONS: Home Medications Review Status for Reconciliation: Complete Med Status: No Current Medications Drug Name: gabapentin 400 mg oral capsule Instructions: 2 cap(s) orally 3 times a day Drug Name: busPIRone 15 mg oral tablet Instructions: 1 tab(s) orally every 8 hours Drug Name: ziprasidone 60 mg oral capsule Instructions: 1 cap(s) orally 2 times a day Drug Name: nicotine 21 mg/24 hr transdermal film, extended release Instructions: 1 patch transdermal every 24 hours Drug Name: thiamine 100 mg oral tablet Instructions: 1 tab(s) orally once a day Drug Name: folic acid 1 mg oral tablet Instructions: 1 tab(s) orally once a day Drug Name: omeprazole 40 mg oral delayed release capsule Instructions: 1 cap(s) orally once a day SIGNIFICANT EVENTS: Immunizations Description:Pneumonia- Pneumococcal polysaccharide vaccine Past Medical History Description:schizoaffective disorder Description:GERD Description:Hypertension (HTN) Description:EtOH abuse Description:Seizure Disorder Additional Notes:from alcohol withdraw CLINICAL IMPRESSION Diagnosis/Annotation: ED Dx Name:Benzodiazepine withdrawal Code:F13.239 Prelim Disch Dx Name:Alcohol withdrawal Code:F10.239 Name:Alcohol withdrawal without perceptual disturbances Code:F10.239 Dispostion: hospitalized Admit to: Telemetry. Admitting Considerations: ATTESTATION Attestation: I saw and evaluated the patient. I personally obtained the goodwin and critical portions of the history and physical exam or was physically present for goodwin and critical portions performed by the resident/fellow. I reviewed the resident/fellows documentation and discussed the patient with the resident/fellow. I agree with the resident/fellows medical decision making as documented in the resident/fellows note with the exception/addition of the following Comments/Additional Findings: This patient was seen by the resident physician. I have seen and examined the patient, agree with the workup, evaluation, management and diagnosis. The care plan has been discussed and I concur. I have reviewed the ECG and concur with the resident's interpretation. . CRITICAL CARE TIME Is this a critically ill patient: no Electronic Signatures: Priti Rosales () (Signed 06-Mar-2018 08:46) Authored: Provider Note - ED v2 Co-Signer: Provider Note - ED v2 Richard Clayton (Resident)) (Signed 01-Mar-2018 07:19) Authored: Provider Note - ED v2 Last Updated: 06-Mar-2018 08:46 by Priti Rosales) References: 1. Data Referenced From Triage - ED 03/01/2018 4:28 AM RISK SCREEN - ADULT Observed: 03/01/2018 Status: UNK Source: [facility]IVERSITY EMERGENCY 4:38 AM HOSPITALS REPOSITORY Preferred Language: Preferred Language: Preferred Language for Discussing Health Care (patient/designee)Sudanese Advanced Directives: Advance Directive Medicalno Family Violence Adult: Abuse Screen: Are you or have you been threatened or abused physically, emotionally, or sexually by anyoneno Suicide / Depression: Suicide/Depression Screen: During the past month, have you often been bothered by feeling down, depressed or hopelessno During the past month, have you often had little interest or pleasure in doing thingsno Have you had any thoughts of harming yourselfyes (1) Have you had any thoughts of harming anyone elseno (1) Learning Assessment (Patient): Learning Assessment (Patient): Patient is Able to be Assessed for Learningyes Factors Influencing Readiness to Learnacuteness of illness Factors that Impact Ability to Learnacuteness of illness Devices/Methods Used to Communicatenone Learning Preferencesindividual instruction; verbal instruction Cultural Considerationsnone Developmental Considerationsnone Orthodox Considerationsnone Learning Assessment (Other Learner): Learning Assessment (Other Learner): Other learner availableno Fall Risk Adult: Falls Risk: Altered Mobilitynone Change in Mental Statusno Relevant Medical History / Diagnosisseizures Fall Historynone Altered Eliminationno Medications that Might Alter: equilibrium, cognitive judgement or severity of injurynone Sensory Deficitno UNABLE or UNWILLING to Follow Directionsno Patient Identified as a Falls Riskno Provide Rationale not identified as Falls Riskno risk factors identified Pressure Injury: Pressure Injury Present on Admissionno Respiratory / Cough /TB: ED / TB / Cough / Respiratory Screen: Do you have a coughno Smoking/Social History (Required age 13 or older): Smoking Status: unknown if ever smoked Alcohol Use: daily Drug Use: unknown Admission Risk Screen: Significant IndicatorsComplete CAGE: CAGE: Is this an injured patient at a Trauma Center ([facility]): no Electronic Signatures: Lily Zelaya (GARY PRN) (Signed 01-Mar-2018 04:39) Authored: Preferred Language, Advanced Directives, Family Violence Adult, Suicide / Depression, Learning Assessment (Patient), Learning Assessment (Other Learner), Fall Risk Adult, Pressure Injury, Respiratory / Cough /TB, Smoking/Social History (Required age 13 or older), CAGE Last Updated: 01-Mar-2018 04:39 by Lily Zelaya (GARY PRN) References: 1. Data Referenced From Triage - ED 03/01/2018 04:28 AM TRIAGE - ED Observed: 03/01/2018 Status: [facility] Source: DRIVER 4:28 AM HOSPITALS REPOSITORY Pain: Acceptable Pain Level (0-10)0 Pain Rating (0-10): Rest0 Pain Rating (0-10): Activity0 Chart Review: CHIEF COMPLAINT ZAINA DOLL is a Male patient with a chief complaint of (etoh withdrawl, SI). Other Complaints: states last drink a couple hours ago. pt was inpatient at [facility] today and left AMA, SI Triage Date/Time: 01-Mar-2018 04:28 Pain Rating (0-10): Rest: 0 Pain Rating (0-10): Activity: 0 Acceptable Pain Level (0-10): 0 Vital Signs: Temperature: 97.7F ( 36.5C) taken oral Blood Pressure: 122/85 Mean: Heart Rate: 121 Respiratory Rate: 22 Pulse Oximetry: 98% on room air, no respiratory support. Height: 6 feet 3.00 inches. 190.5 CM Weight: 200.0 pounds. Calculated 90.7 kg. (stated) Calculated BMI (kg/m2): 24.992 Calculated BSA (m2) 2.19 Cough lasting greater than 3 weeks: yes Travel outside of [place]: no Allergies: yes Patient has suicidal thoughts: yes Patient has homicidal thoughts: no GEOVANNA: 2 Risk Screens Suicide Risk Screen Have you wished you were or wished you could go to sleep and not wake up yes Have you had any actual thoughts of killing yourself yes Have you been thinking about how you might do this yes Have you had these thoughts and had some intention of acting on them yes Have you started to work out or worked out the details of how to kill yourself Do you intend to carry out this plan yes Have you ever done anything, started to do anything, or prepared to do anything to end your life yes Was this within the past 3 months no Suicide Risk Interventions Low Suicide Risk Interventions: epat referral initiated and behavioral health resources given at discharge Moderate Suicide Risk Interventions: comfort care provided, elopment risk identified, finger food diet enforced, frequent rounding with irregular checks at a minimum of every 15 minutes to assess psych safety performed (patient easily observed), hourly behavioral assessment performed and provider notified High Suicide Risk Interventions: patient under constant observation at all times Comments: above interventions at discretion of provider PAIN Pain Scale Used: ALLI Past Medical History: Past Medical History Reviewedyes Seizure Disorder: Past Medical History, from alcohol withdraw, Active EtOH abuse: Past Medical History, Active Hypertension (HTN): Past Medical History, Active GERD: Past Medical History, Active schizoaffective disorder: Past Medical History, Active Electronic Signatures: Lily Zelaya) (Signed 01-Mar-2018 04:37) Authored: Triage, Past Medical History Last Updated: 01-Mar-2018 04:37 by Lily Zelaya (RN PRN) BASIC METABOLIC PANEL Collected: 02/27/2018 Status: F Source: [facility] 11:53 AM SYSTEM REPOSITORY TYPE CODE TESTS RESULT OUT OF REFERENCE UNITS RANGE LAB GLU 68-110 mg/dL GLU 86 LAB NA3 135-148 mmol/L NA 138 LAB POT 3.3-5.3 mmol/L K 3.9 LAB CO2 21-30 mmol/L CO2 29 LAB CHLOR 97-111 mmol/L CL 103 LAB BUN 8-22 mg/dL Low BUN 5 LAB CREAT 0.80-1.30 mg/dL Low CREAT 0.68 LAB CA 8.4-10.4 mg/dL Low CA 8.2 LAB ANION GAP 5-13 ANION GAP 10 LAB eGFR >=60 mL/min/1.73 sqm ESTIMATED GFR 120 (CKD-EPI) Performed By: #### CH8, MG #### [facility] [address] [place] [address], MAGNESIUM Collected: 02/27/2018 Status: F Source: [facility] 11:53 AM SYSTEM REPOSITORY TYPE CODE TESTS RESULT OUT OF RANGE REFERENCE UNITS LAB mag 1.6-2.8 mg/dL MG 1.9 Performed By: #### CH8, MG #### [facility] [address] [place] [address], COMPLETE BLOOD COUNT Collected: 02/26/2018 Status: F Source: [facility] W/DIFF 7:05 AM SYSTEM REPOSITORY TYPE CODE TESTS RESULT OUT OF REFERENCE UNITS RANGE LAB WBC 4.5-11.5 K/uL Low WBC 3.4 LAB RBC 4.50-5.90 M/uL Low RBC 3.88 LAB HGB 13.9-16.3 g/dL Low HGB 12.5 LAB HCT 41.0-53.0 % Low HCT 37.2 LAB MCV 80-100 fL MCV 96 LAB MCH 26.0-34.0 pg MCH 32.2 LAB MCHC 32.0-35.9 g/dL MCHC 33.6 LAB PLT 150-400 K/uL PLT 163 LAB RDW 11.5-14.5 % RDW-CV High 15.6 LAB MPV 8.5-11.5 fL MPV 9.3 LAB CPnT 31.0-76.0 % NEUTROPHILS 44.5 LAB CPIY 24.0-44.0 % LYMPHOCYTES 41.5 LAB CPmO 2.0-11.0 % MONOCYTES High 11.3 LAB CPeO 0.1-4.0 % EOSINOPHIL 1.2 LAB CPbA <=1.9 % BASOPHILS 1.5 LAB nt 1.50-8.00 K/uL NEUTROPHIL # 1.50 LAB ly 1.00-4.80 K/uL LYMPHOCYTES # 1.40 LAB mo 0.20-1.00 K/uL MONOCYTE # 0.38 LAB eo 0.00-0.70 K/uL EOSINOPHIL # 0.04 LAB ba 0.00-0.20 K/uL BASOPHIL # 0.05 Performed By: #### CBCD #### [facility] [address] [place] [address], PROTHROMBIN TIME AND Collected: 02/26/2018 Status: F [facility] TYPE CODE TESTS RESULT OUT OF REFERENCE UNITS RANGE LAB PT PAT 10.0-12.6 sec PROTIME 11.1 LAB INR 0.90-1.10 INR 0.98 Performed By: #### PT #### [facility] [address] [place] [address], BASIC METABOLIC PANEL Collected: 02/26/2018 Status: F Source: [facility] [place] [facility] 7:05 AM SYSTEM REPOSITORY TYPE CODE TESTS RESULT OUT OF REFERENCE UNITS RANGE LAB GLU 68-110 mg/dL GLU 79 LAB NA3 135-148 mmol/L NA 137 LAB POT 3.3-5.3 mmol/L K 3.3 LAB CO2 21-30 mmol/L CO2 29 LAB CHLOR 97-111 mmol/L CL 101 LAB BUN 8-22 mg/dL BUN 9 LAB CREAT 0.80-1.30 mg/dL Low CREAT 0.70 LAB CA 8.4-10.4 mg/dL Low CA 8.1 LAB ANION GAP 5-13 ANION GAP 10 LAB eGFR >=60 mL/min/1.73 sqm ESTIMATED GFR 119 (CKD-EPI) Performed By: #### CH8, MG #### [facility] [address] [place] [address], MAGNESIUM Collected: 02/26/2018 Status: F [facility] REPOSITORY TYPE CODE TESTS RESULT OUT OF RANGE REFERENCE UNITS LAB mag 1.6-2.8 mg/dL MG 1.8 Performed By: #### CH8, MG #### [facility] [address] [place] [address], COMPLETE BLOOD COUNT Collected: 02/25/2018 Status: F Source: [facility] 6:28 PM SYSTEM REPOSITORY TYPE CODE TESTS RESULT OUT OF RANGE REFERENCE UNITS LAB WBC 4.5-11.5 K/uL Low WBC 3.0 LAB RBC 4.50-5.90 M/uL Low RBC 4.27 LAB HGB 13.9-16.3 g/dL Low HGB 13.8 LAB HCT 41.0-53.0 % HCT 41.0 LAB MCV 80-100 fL MCV 96 LAB MCH 26.0-34.0 pg MCH 32.3 LAB MCHC 32.0-35.9 g/dL MCHC 33.7 LAB PLT 150-400 K/uL PLT 162 LAB RDW 11.5-14.5 % High RDW-CV 15.7 LAB MPV 8.5-11.5 fL MPV 8.7 Performed By: #### CBC #### [facility] [address] [place] [address], BASIC METABOLIC PANEL Collected: 02/25/2018 Status: F Source: [facility] 6:28 PM SYSTEM REPOSITORY TYPE CODE TESTS RESULT OUT OF REFERENCE UNITS RANGE LAB GLU 68-110 mg/dL GLU High 120 LAB NA3 135-148 mmol/L NA 139 LAB POT 3.3-5.3 mmol/L K 3.5 LAB CO2 21-30 mmol/L CO2 26 LAB CHLOR 97-111 mmol/L CL 102 LAB BUN 8-22 mg/dL BUN 9 LAB CREAT 0.80-1.30 mg/dL Low CREAT 0.70 LAB CA 8.4-10.4 mg/dL Low CA 8.1 LAB ANION GAP 5-13 ANION High GAP 15 LAB eGFR >=60 mL/min/1.73 sqm ESTIMATED GFR 119 (CKD-EPI) Performed By: #### CH8, HEPATIC, ETOH #### [facility] [address] [place] [address], HEPATIC FUNCTION Collected: 02/25/2018 Status: F Source: [facility] PANEL 6:28 PM SYSTEM REPOSITORY TYPE CODE TESTS RESULT OUT OF REFERENCE UNITS RANGE LAB ALB 3.4-5.1 g/dL ALB 3.7 LAB DBILI 0.10-0.30 mg/dL DBIL 0.10 LAB TBILI 0.1-1.5 mg/dL TBIL 0.5 LAB ALKPHOS 40-200 IU/L ALK 105 LAB ALT2 7-40 IU/L High ALT 91 LAB AST2 7-40 IU/L High AST 64 LAB tp 6.2-8.3 g/dL Low TP 5.8 Performed By: #### CH8, HEPATIC, ETOH #### [facility] [address] [place] [address], ETHANOL, SERUM Collected: 02/25/2018 Status: F [facility] SYSTEM REPOSITORY TYPE CODE TESTS RESULT OUT OF REFERENCE UNITS RANGE LAB ETHANOL None Detected mg/dL High ETHANOL 282 Performed By: #### CH8, HEPATIC, ETOH #### [facility] [address] [place] [address], TOXICOLOGY SCREEN, Collected: 02/25/2018 Status: F Source: THE UNCONFIRMED 6:28 PM [facility] Order Comment: This toxicology screen provides unconfirmed analytical results suitable for clinical management. Results are reported as positive (at or above the cutoff) or negative (below the cutoff). Amphetamine 1000 ng/mL Barbiturate 200 ng/mL Methadone 300 ng/mL Opiate 300 ng/mL Oxycodone 100 ng/mL Fentanyl 2 ng/mL Hydrocodone 100 ng/mL Benzodiazepine 200 ng/mL Cocaine 300 ng/mL PCP 25 ng/mL THC 50 ng/mL Positive qualitative result does not indicate or measure intoxication. For additional information see Link below or for toxicology consultation please call the laboratory at [phone]. TYPE CODE TESTS RESULT OUT OF RANGE REFERENCE UNITS LAB AMPH Negative AMPH Negative LAB BARBIT Negative BARBIT Negative LAB METHADON Negative METHADONE Negative LAB OPIATE Negative OPIATE Negative LAB cy Negative OXYCODONE, Negative URINE LAB FENTSCUR Negative FENTANYL Negative SCREEN, URINE LAB HYDROCODONE Negative GC/MS (PM) HYDROCODONE Negative (PM) LAB BENZO Negative BENZO Negative LAB COCAINE CL Negative Abnormal COCAINE CL Positive LAB PHENCYCL Negative PHENCYCL Negative LAB THC CL Negative THC Abnormal CL Positive LAB gR Cutoff: 10 mg/dL Abnormal ALCOHOL Positive Performed By: #### TOX SC #### [facility] [address] [place] [address], [id number] LIMIT UR TOX Collected: 02/24/2018 Status: F Source: [facility] 5:05 AM [facility] REPOSITORY Order Comment: CONSERVATION TYPE CODE TESTS RESULT OUT OF RANGE REFERENCE UNITS LAB L600.59958 5.0-8.0 Normal PH 6.0 TOX LAB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 Arterial 100 Base Excess-Blood 1.9 Bicarbonate, Calculated, Arterial 28.2 H Site of Arterial Puncture R Radial Jamaal's Test (Collateral Circulation) Positive Ventilator Mode A/C Ventilator Rate 14.0000 Tidal Volume 500.0000 Total Minute Volume 7.1000 PEEP CMH2O 5.0000 Frequency [BPM] 14.0000 Complete Blood Count + Differential 22-Feb-2018 23:44:00 ResultValue White Blood Cell Count 4.6 Nucleated Erythrocyte Count 0.0 Red Blood Cell Count 4.52 HGB 14.7 HCT 43.8 MCV 97 MCHC 33.6 PLT 179 RDW-CV 15.9 H Neutrophil % 47.0 Immature Granulocytes % 0.6 Lymphocyte % 34.4 Monocyte % 15.8 Eosinophil % 1.1 Basophil % 1.1 Neutrophil Count 2.17 Lymphocyte Count 1.59 Monocyte Count 0.73 Eosinophil Count 0.05 Basophil Count 0.05 Comprehensive Metabolic Panel 22-Feb-2018 23:44:00 ResultValue Glucose, Serum 138 H NA 142 K 3.3 L CL 104 Bicarbonate, Serum 24 Anion Gap, Serum 17 BUN 14 CREAT 0.76 GFR-Non >60 GFR- >60 Calcium, Serum 8.6 ALB 4.4 ALKP 120 T Pro 6.9 T Bili 0.3 Alanine Aminotransferase, Serum 142 H Aspartate Transaminase, Serum 71 H Troponin I, Serum 22-Feb-2018 23:44:00 ResultValue Troponin I, Serum <0.02 Ethanol Level 22-Feb-2018 23:44:00 ResultValue Ethanol Level 486 AA Lab Comment: Called- RB to [email or web address] GARY , 02/23/2018 00:19 Acetylsalicylic Acid Level, Serum 22-Feb-2018 23:44:00 ResultValue Acetylsalicylic Acid Level, Serum <3 A Acetaminophen Level, Serum 22-Feb-2018 23:44:00 ResultValue Acetaminophen Level, Serum <10.0 A Triglycerides, Serum 22-Feb-2018 23:44:00 ResultValue Triglycerides, Serum 200 . AGE DESIRABLE BORDERLINE HIGH HIGH VERY HIGH 0 D-90 D 19 - 174 ---- ---- ---- 91 D- 9 Y 0 - 74 75 - 99 >/= 100 ---- 10-19 Y 0 - 89 90 - 129 >/= 130 ---- H Results: Impression: No evidence of acute osseous abnormality involving the pelvis. Xray Pelvis 1 or 2 View [Feb 23 2018 1:07AM] Impression: 1. No consolidation or pleural effusion. 2. Endotracheal tube with the tip approximately 2 cm above the bekah, retraction by 1-2 cm recommended. 3. Enteric tube with the tip in the expected location of the gastric antrum. Xray Abdomen AP View [Feb 23 2018 12:47AM] Impression: 1. No consolidation or pleural effusion. 2. Endotracheal tube with the tip approximately 2 cm above the bekah, retraction by 1-2 cm recommended. 3. Enteric tube with the tip in the expected location of the gastric antrum. Xray Chest 1 View [Feb 23 2018 12:47AM] Impression: No acute intracranial abnormality. No acute cervical spine fracture or malalignment. CT C Spine without Contrast [Feb 22 2018 11:43PM] Impression: No acute intracranial abnormality. No acute cervical spine fracture or malalignment. CT Head without Contrast [Feb 22 2018 11:43PM] Assessment and Plan: Daily Risk Screen: Does patient have a central lineno Does patient have an indwelling urinary catheteryes Plan for indwelling urinary catheter removal todayno The patient continues to require indwelling urinary catheterization for critically ill patients who need accurate urinary output measurements Is the patient intubatedno Other: Diagnosis: Hospital Course: Zaina is a 37 year male with alcohol abuse, schizoaffective disorder, and multiple prior admissions with intoxication/withdrawal who was admitted for altered mental status 2/2 metabolic encephalopathy, ethanol intoxication, and closed head trauma. Head and neck CT were negative. Intubated to protect his airways. Daily Progress: 02/23/18: Day #1 ICU. Tox screen was negative, except for alcohol of 486. UA showed 1+ bacteria, Urine culture ordered. Blood cultures ordered x 2. Lactic acid was 1.3. Osmolality was elevated at 351. Assessment & Plan: Neurological System: #Schizoaffective disorder -Holding home medications for now #Alcohol intoxication/withdraw -Blood ethanol elevated at 486 on admission -CIWA protocol with oral ativan -D5LR at 100 -Folic acid 1 mg daily IV -Thiamine 100 mg daily IV Cardiovascular System: -ECHO 06/2016 Normal EF with impaired relaxation pattern of left ventricular filling Respiratory System: #Tobacco abuse -Nicotine patch Gastrointestinal System: #GI Prophylaxis -Pepcid 20 IV BID Endocrine System: -Fasting glucose 98 this morning Renal System: -Cr 0.71 at baseline Hematological System: -Hb 14.7 on admission, dropped to 12.7 after fluid resuscitation Infection Disease System: #UTI -UA had 1+ bacteria -Urine culture ordered -Rocephin 1 g IV daily #Possible STI -1 gram zithromax oral x 1 in addition to daily Rocephin Vascular system & Extremities: -Peripheral IV access Other: -Will hold on possible psych consult for now DVT Prophylaxis: -SCD's Code Status: Code StatusFull Code Signature/Cosignature/Attestation: Attending AttestationI saw and evaluated the patient. I personally obtained the goodwin and critical portions of the history and physical exam or was physically present for goodwin and critical portions performed by the resident/fellow. I reviewed the resident/fellows documentation and discussed the patient with the resident/fellow. I agree with the resident/fellows medical decision making as documented in the residents note. I personally evaluated the patient (as noted in the above attestation) on 23-Feb-2018 Comments/ Additional Findings ICU STAFF PHYSICIAN NOTE OF PERSONAL INVOLVEMENT IN CARE As the attending physician, I certify that I personally reviewed the patient's history and personally examined the patient to confirm the physical findings described above, and that I reviewed the relevant imaging studies and available reports. I also discussed the differential diagnosis and all of the proposed management plans with the patient and individuals accompanying the patient to this visit. They had the opportunity to ask questions about the proposed management plans and to have those questions answered. This patient has a high probability of sudden, clinically significant deterioration, which requires the highest level of physician preparedness to intervene urgently. I managed/supervised life or organ supporting interventions that required frequent physician assessment. I devoted my full attention to the direct care of this patient for the amount of time indicated below. Time I spent with family or surrogate(s) is included only if the patient was incapable of providing the necessary information or participating in medical decision- making. Time devoted to teaching and to any procedures I billed separately is not included. Critical Care Time: 35 minutes Critical Care PatientI have reviewed and evaluated the most recent data and results, personally examined the patient, and formulated the plan of care as presented above. This patient was critically ill and required continued critical care treatment. Teaching and any separately billable procedures are not included in the time calculation. Billing Provider Critical Care Time35 minute(s) Primary Critical Care Issue/Treatment (See Assessment and Plan for greater detail)-- For the nature of the critical condition and treatment, this documentation has been prepared by the attending physician/SIMEON- billing provider of these critical care services. Electronic Signatures: Son Mathur) (Signed 24-Feb-2018 13:23) Authored: Signature/Cosignature/Attestation Co-Signer: Service, Subjective Data, Objective Data, Assessment and Plan, Signature/Cosignature/Attestation Edwin Carroll (DO (Resident)) (Signed 23-Feb-2018 14:06) Authored: Service, Subjective Data, Objective Data, Assessment and Plan, Signature/Cosignature/Attestation Last Updated: 24-Feb-2018 13:23 by Son Mathur) DAILY PROGRESS Observed: 02/23/2018 Status: COMPLETED Source: [facility]AU[facility]GERY 8:04 AM [facility] REPOSITORY Service: Trauma Surgery Subjective Data: ZAINA DOLL is a 37 year old Male who is Hospital Day # 2. Overnight Events: Patient had an uneventful night. Additional Information: no acute events overnight since I last saw the patient. was transferred to ICU Objective Data: Objective Information: ---- Intake and Output ----- Mn/Dy/Year TimeIntakeOutalbuquer[facility] ind[facility] centerNet Feb 23, 2018 6:00 [id number] The Intake and Output Totals for the last 24 hours are: IntakeOutputNet [id number] T PRBPSpO2 Value36.46896339/98962% Date/Time02/23 0: 6: 6: 6: 6:33 Range(36.2C - 36.6C ) (76 - 109 ) (10 - 14 ) (96 - 188 )/ (59 - 118 ) (98% - 100% ) ---- Intake and Output ----- Mn/Dy/Year TimeIntakeOutal[facility] centerNet Feb 23, 2018 6:00 [id number] The Intake and Output Totals for the last 24 hours are: IntakeOutputNet [id number] Physical Exam: Constitutional: sedated Eyes: reactive to light ENMT: no sign of external trauma, no crepitus on palpation Head/Neck: intubated, trachea midline, small bruise over right upper eyebrow, OG tube in place, bile no blood, c collar in place Respiratory/Thorax: no sign of trauma, crepitus, bruises, symmetrical chest rise on ventilator Cardiovascular: regular Gastrointestinal: soft, non tender non distended, rectal exam: tone present, no sign of external trauma Genitourinary: Mohr clear urine no blood Extremities: no sign of any injuriee Neurological: sedated on propofol and versed Skin: warm Medication: Medications: Continuous Medications 1. Dextrose 5% - Lactated Ringers Infusion: 1000 mL IntraVenous <Continuous> 2. fentaNYL 1000 microgram/ NaCL 0.9% 100 mL Infusion.: 25 mcg/hr IntraVenous <Continuous> 3. Midazolam 100 mg/ D5W 100 mL Infusion: 5 mg/hr IntraVenous <Continuous> 4. Propofol 10 mg/mL Infusion: 5 mcg/kg/min IntraVenous <Continuous> Scheduled Medications 1. Famotidine Injectable: 20 mg IntraVenous Push Every 12 Hours 2. Folic Acid IV Piggy Back: 1 mg IntraVenous Piggyback Daily 3. Multivitamin with Minerals Oral Liquid: 15 mL Oral Daily 4. Thiamine Injectable: 100 mg IntraVenous Push Daily PRN Medications 1. Calcium Gluconate IVPB: 1 gram(s) IntraVenous Piggyback Every 6 Hours 2. Calcium Gluconate IVPB: 2 gram(s) IntraVenous Piggyback Every 6 Hours 3. fentaNYL Injectable: 25 microgram(s) IntraVenous Push Every 2 Hours 4. Magnesium Sulfate 2 gram/Sterile Water 50 mL Premix Soln: 2 gram(s) IntraVenous Piggyback Every 6 Hours 5. Magnesium Sulfate 4 gram/Sterile Water 100 mL Premix Soln: 4 gram(s) IntraVenous Piggyback Every 6 Hours 6. Polyethylene Glycol: 17 gram(s) Oral Daily 7. Potassium Chloride 20 mEq/Sterile Water 100 mL Premix IVPB: 20 mEq IntraVenous Piggyback Every 6 Hours 8. Potassium Chloride Extended Release: 40 mEq Oral Every 6 Hours Recent Lab Results: Results: I have reviewed these laboratory results: Drug Screen, Urine 23-Feb-2018 01:09:00 ResultValue Comments. SEE BELOW Drug screen results are presumptive and should not be used to assess compliance with prescribed medication. Contact the performing [facility] laboratory to add-on definitive confirmatory testing if clinically indicated. . Toxicology scre Amphetamine Screen, Urine PRESUMPTIVE NEGATIVE CUTOFF LEVEL: 500 NG/ML Cross-reactivity has been reported with high concentrations of the following drugs: buproprion, chloroquine, chlorpromazine, ephedrine, mephentermine, fenfluramine, phentermine, phenylpropanolamine Barbiturate Screen, Urine PRESUMPTIVE NEGATIVE PRESUMPTIVE NEGATIVE CUTOFF LEVEL: 200 NG/ML Benzodiazepine Screen, Urine PRESUMPTIVE NEGATIVE PRESUMPTIVE NEGATIVE CUTOFF LEVEL: 200 NG/ML Cannabinoid Screen, Urine PRESUMPTIVE NEGATIVE PRESUMPTIVE NEGATIVE CUTOFF LEVEL: 50 NG/ML Cocaine Metabolite Screen, Urine PRESUMPTIVE NEGATIVE PRESUMPTIVE NEGATIVE CUTOFF LEVEL: 150 NG/ML Methadone Screen, Urine PRESUMPTIVE NEGATIVE CUTOFF LEVEL: 150 NG/ML The metabolite X-izpfe-ouzpqpcoysylwm (LAAM) is not detected by this method in concentrations that would be found in the urine of patients on LAAM therapy. Opiate Screen, Urine PRESUMPTIVE NEGATIVE CUTOFF LEVEL: 300 NG/ML The opiate screen does not detect fentanyl, meperidine, or tramadol. Oxycodone is not consistently detected (refer to Oxycodone Screen, Urine result). Oxycodone Screen, Urine (item) PRESUMPTIVE NEGATIVE CUTOFF LEVEL: 100 NG/ML This test will accurately detect both oxycodone and oxymorphone. PCP Screen, Urine PRESUMPTIVE NEGATIVE CUTOFF LEVEL: 25 NG/ML Cross-reactivity has been reported with dextromethorphan. Urinalysis 23-Feb-2018 01:09:00 ResultValue Color, Urine COLORLESS Reference Range: STRAW,YELLOW Appearance, Urine CLEAR Specific Green[place], Urine 1.004 L pH, Urine 5.0 Protein, Urine NEGATIVE Glucose, Urine NEGATIVE Blood, Urine SMALL (1+) A Ketones, Urine NEGATIVE Bilirubin, Urine NEGATIVE Urobilinogen, Urine <2.0 Nitrite, Urine NEGATIVE Leukocyte Esterase, Urine NEGATIVE Urinalysis, Microscopic 23-Feb-2018 01:09:00 ResultValue White Cells <1 A Red Blood Cells <1 A Bacteria, Urine 1+ A Blood Gas, Arterial 22-Feb-2018 23:47:00 ResultValue pH, Arterial 7.36 L pCO2, Arterial 50 H pO2, Arterial 229 H Patient-Temperature 37.0 FIO2 50 SO2, Arterial 100 Base Excess-Blood 1.9 Bicarbonate, Calculated, Arterial 28.2 H Site of Arterial Puncture R Radial Jamaal's Test (Collateral Circulation) Positive Ventilator Mode A/C Ventilator Rate 14.0000 Tidal Volume 500.0000 Total Minute Volume 7.1000 PEEP CMH2O 5.0000 Frequency [BPM] 14.0000 Complete Blood Count + Differential 22-Feb-2018 23:44:00 ResultValue White Blood Cell Count 4.6 Nucleated Erythrocyte Count 0.0 Red Blood Cell Count 4.52 HGB 14.7 HCT 43.8 MCV 97 MCHC 33.6 PLT 179 RDW-CV 15.9 H Neutrophil % 47.0 Immature Granulocytes % 0.6 Lymphocyte % 34.4 Monocyte % 15.8 Eosinophil % 1.1 Basophil % 1.1 Neutrophil Count 2.17 Lymphocyte Count 1.59 Monocyte Count 0.73 Eosinophil Count 0.05 Basophil Count 0.05 Troponin I, Serum 22-Feb-2018 23:44:00 ResultValue Troponin I, Serum <0.02 Ethanol Level 22-Feb-2018 23:44:00 ResultValue Ethanol Level 486 AA Lab Comment: Called- RB to Jllashaun RN , 02/23/2018 00:19 Acetylsalicylic Acid Level, Serum 22-Feb-2018 23:44:00 ResultValue Acetylsalicylic Acid Level, Serum <3 A Acetaminophen Level, Serum 22-Feb-2018 23:44:00 ResultValue Acetaminophen Level, Serum <10.0 A Triglycerides, Serum 22-Feb-2018 23:44:00 ResultValue Triglycerides, Serum 200 . AGE DESIRABLE BORDERLINE HIGH HIGH VERY HIGH 0 D-90 D 19 - 174 ---- ---- ---- 91 D- 9 Y 0 - 74 75 - 99 >/= 100 ---- 10-19 Y 0 - 89 90 - 129 >/= 130 ---- H Radiology Results: Results: Impression: No evidence of acute osseous abnormality involving the pelvis. Xray Pelvis 1 or 2 View [Feb 23 2018 1:07AM] Impression: 1. No consolidation or pleural effusion. 2. Endotracheal tube with the tip approximately 2 cm above the bekah, retraction by 1-2 cm recommended. 3. Enteric tube with the tip in the expected location of the gastric antrum. Xray Abdomen AP View [Feb 23 2018 12:47AM] Impression: 1. No consolidation or pleural effusion. 2. Endotracheal tube with the tip approximately 2 cm above the bekah, retraction by 1-2 cm recommended. 3. Enteric tube with the tip in the expected location of the gastric antrum. Xray Chest 1 View [Feb 23 2018 12:47AM] Assessment and Plan: Assessment: presented with acute alcohol intoxication, intubated for airway protection a primary and secondary survey was performed, small abrasion right eyebrow nothing to do wean to extubate, will perform a tertiary survey at that point to r/o missed injuries care per primary Electronic Signatures: SOLE COSTELLO) (Signed 23-Feb-2018 10:43) Authored: Service, Subjective Data, Objective Data, Assessment and Plan, Signature/Cosignature/Attestation Last Updated: 23-Feb-2018 10:43 by SOLE COSTELLO) URINALYSIS Collected: 02/23/2018 Status: F Source: [facility] 1:09 AM MEDICAL CENTER REPOSITORY TYPE CODE TESTS RESULT OUT OF RANGE REFERENCE UNITS LAB COLU(LOIN STRAW,YELLOW C) COLOR COLORLESS LAB APPRU(KAREN CLEAR NC) APPEARANCE CLEAR LAB SPGRU(KAREN 1.005 - 1.035 NC) Low SPECIFIC GRAVITY 1.004 LAB NESTOR(LOINC 5.0 - 8.0 ) pH 5.0 LAB PROTU(KAREN NEGATIVE mg/dL NC) PROTEIN NEGATIVE LAB GLUCU(KAREN NEGATIVE mg/dL NC) GLUCOSE NEGATIVE LAB BLDU(LOIN NEGATIVE C) BLOOD Abnormal SMALL (1+) LAB KETU(LOIN NEGATIVE mg/dL C) KETONES NEGATIVE LAB BILIU(KAREN NEGATIVE NC) BILIRUBIN NEGATIVE LAB UROU2(KAREN 0.0 - 1.9 mg/dL NC) UROBILINOGEN <2.0 LAB NITRU(KAREN NEGATIVE NC) NITRITE NEGATIVE LAB LEUKU(KAREN NEGATIVE NC) LEUKOCYTE ESTERASE NEGATIVE Performed By: #### UA #### [place] [address] UA MICROSCOPIC Collected: 02/23/2018 Status: F Source: [facility] 1:[address] [place] [address] REPOSITORY TYPE CODE TESTS RESULT OUT OF RANGE REFERENCE UNITS LAB WBCUR(LOIN 0-5 /HPF C) Abnormal WBC <1 LAB RBCUR(LOIN 0-5 /HPF C) Abnormal RBC <1 LAB BACUR(LOIN /HPF C) Abnormal BACTERIA 1+ Performed By: #### UAMIC #### [place] [address] DRUG SCREEN,URINE Collected: 02/23/2018 Status: F Source: [address] REPOSITORY TYPE CODE TESTS RESULT OUT OF REFERENCE UNITS RANGE LAB DRCOM(LOINC ) DRUG SCREEN SEE BELOW COMMENT Result Comment: Drug screen results are presumptive and should not be used to assess compliance with prescribed medication. Contact the performing [facility] laboratory to add-on definitive confirmatory testing if clinically indicated. . Toxicology screening results are reported qualitatively. The concentration must be greater than or equal to the cutoff to be reported as positive. The concentration at which the screening test can detect an individual drug or metabolite varies. The absence of expected drug(s) and/or drug metabolite(s) may indicate non-compliance, inappropriate timing of specimen collection relative to drug administration, poor drug absorption, diluted/adulterated urine, or limitations of testing. For medical purposes only; not valid for forensic use. . Interpretive questions should be directed to the laboratory medical directors. LAB AMPH(LOINC) NEGATIVE AMPHETAMINE PRESUMPTIVE SCREEN,U NEGATIVE Result Comment: CUTOFF LEVEL: 500 NG/ML Cross-reactivity has been reported with high concentrations of the following drugs: buproprion, chloroquine, chlorpromazine, ephedrine, mephentermine, fenfluramine, phentermine, phenylpropanolamine, pseudoephedrine, and propranolol. LAB ARIANNA(LOINC) NEGATIVE BARBITURATES PRESUMPTIVE SCREEN,U NEGATIVE Result Comment: CUTOFF LEVEL: 200 NG/ML LAB BENZO(LOINC) NEGATIVE BENZODIAZEPINES SCREEN,U PRESUMPTIVE NEGATIVE Result Comment: CUTOFF LEVEL: 200 NG/ML LAB SHIRLEY(LOINC) NEGATIVE CANNABINOIDS PRESUMPTIVE SCREEN,U NEGATIVE Result Comment: CUTOFF LEVEL: 50 NG/ML LAB COCAI(LOINC) NEGATIVE COCAINE PRESUMPTIVE METABOLITE NEGATIVE SCREEN,U Result Comment: CUTOFF LEVEL: 150 NG/ML LAB METHD(LOINC) NEGATIVE PRESUMPTIVE METHADONE NEGATIVE SCREEN,U Result Comment: CUTOFF LEVEL: 150 NG/ML The metabolite B-vyarp-rnxbylaipoiulz (LAAM) is not detected by this method in concentrations that would be found in the urine of patients on LAAM therapy. LAB OPIAT(LOINC) NEGATIVE PRESUMPTIVE OPIATES NEGATIVE SCREEN,U Result Comment: CUTOFF LEVEL: 300 NG/ML The opiate screen does not detect fentanyl, meperidine, or tramadol. Oxycodone is not consistently detected (refer to Oxycodone Screen, Urine result). LAB OXYS2(LOINC) NEGATIVE PRESUMPTIVE OXYCODONE NEGATIVE SCREEN,U Result Comment: CUTOFF LEVEL: 100 NG/ML This test will accurately detect both oxycodone and oxymorphone. LAB PCP(LOINC) NEGATIVE PCP PRESUMPTIVE SCREEN,U NEGATIVE Result Comment: CUTOFF LEVEL: 25 NG/ML Cross-reactivity has been reported with dextromethorphan. Performed By: #### [email or web address] #### [facility] [address] [place] [address] HISTORY AND PHYSICAL Observed: 02/23/2018 Status: COMPLETED Source: [facility] 12:24 AM MEDICAL CENTER REPOSITORY History of Present Illness: HPI: 37 m hx alcohol use, schizoaffective disorder, multiple prior admissions with intoxication/withdrawal, presented to ED after found unresponsive. In ED was intubated for airway protection. Trauma evaluated by surgery given righ tforehead echymosis with no major findings. CT head/cervical spine showed no acute process or fractures. alcohol level 486. The patient is unable to provide HPI/SYS review. Data gathered from discussion with RN and revieweing the medical records He was placed on [facility] ventilation and IV sedation Comorbidities: Comorbid Conditionshypertension Family History: Family History: unable to obtain Social History: Social History: Smoking Statusunable to assess Alcohol Usedaily Drug Useunknown Allergies: morphine: Hives/Urticaria Horse: Swelling/Edema, Anaphylaxis, Facial Swelling opiates: Unknown narcotic analgesics: Unknown Medications Prior to Admission: List reviewed. Review of Systems: Incomplete ROS: patient's impaired mental status, patient intubated Objective: Objective Information: T PRBPSpO2 [id number]/7099% Date/Time02/22 22: 22: 22: 22: 22:27 Range(36.6C - 36.6C ) (99 - 99 ) (10 - 10 ) (118 - 118 )/ (70 - 70 ) (99% - 99% ) Pain at Rest reported at 02/22 22:27: 0 Weights 02/22 22:30: Weight in kg (Weight (kg)) 72.5 02/22 22:30: Weight in lbs ((lbs)) 160 Vent Settings 02/22 23:02ModesAC, VC 02/22 23:02Rate Set (breaths/min)14 02/22 23:02Tidal Volume Set (mL)500 02/22 23:02PEEP (cm H2O)5 02/22 23:02FiO2 (%)50 02/22 23:02Flow Rate (L/min)60 Vent Data 02/22 23:02Ventilator IdentificationESPRIT CE [id number] 02/22 23:02Start [id number]-Feb-2018 23:02Start Time23:02 02/22 23:02Ventilator Days and Hours0 Hours Non-Invasive 02/22 23:02High Inspiratory Pressure (cm H2O)50 02/22 23:02Low Inspiratory Pressure (cm H2O)10 Physical Exam: Constitutional: intubated, sedated ,unresponsive Eyes: PERRL, EOMI, clear sclera ENMT: mucous membranes moist, no apparent injury, no lesions seen Head/Neck: Neck supple, no apparent injury Respiratory/Thorax: Patent airways, CTAB, normal breath sounds with good chest expansion, thorax symmetric Cardiovascular: Regular, rate and rhythm, no murmurs, 2+ equal pulses of the extremities, normal S 1and S 2 Gastrointestinal: Nondistended, soft, non-tender, no rebound tenderness or guarding, no masses palpable, no organomegaly, +BS Genitourinary: No Discharge, vesicles or other abnormalities Musculoskeletal: ROM intact, no joint swelling, normal strength Extremities: no E/C/C Neurological: moved all four extremities in the ER Breast: No masses, tenderness, no discharge or discoloration Lymphatic: No significant lymphadenopathy Psychological: unable to assess Skin: Warm and dry, no lesions, no rashes Medications: Medications: CENTRAL NERVOUS SYSTEM AGENTS: 1. Propofol 10 mg/mL Infusion: 5 mcg/kg/min IntraVenous <Continuous> GASTROINTESTINAL AGENTS: 1. Polyethylene Glycol: 17 gram(s) Oral Daily PRN Recent Lab Results: Results: I have reviewed these laboratory results: Complete Blood Count + Differential 22-Feb-2018 23:44:00 ResultValue White Blood Cell Count 4.6 Nucleated Erythrocyte Count 0.0 Red Blood Cell Count 4.52 HGB 14.7 HCT 43.8 MCV 97 MCHC 33.6 PLT 179 RDW-CV 15.9 H Neutrophil % 47.0 Immature Granulocytes % 0.6 Lymphocyte % 34.4 Monocyte % 15.8 Eosinophil % 1.1 Basophil % 1.1 Neutrophil Count 2.17 Lymphocyte Count 1.59 Monocyte Count 0.73 Eosinophil Count 0.05 Basophil Count 0.05 Comprehensive Metabolic Panel 22-Feb-2018 23:44:00 ResultValue Glucose, Serum 138 H NA 142 K 3.3 L CL 104 Bicarbonate, Serum 24 Anion Gap, Serum 17 BUN 14 CREAT 0.76 GFR-Non >60 GFR- >60 Calcium, Serum 8.6 ALB 4.4 ALKP 120 T Pro 6.9 T Bili 0.3 Alanine Aminotransferase, Serum 142 H Aspartate Transaminase, Serum 71 H Troponin I, Serum 22-Feb-2018 23:44:00 ResultValue Troponin I, Serum <0.02 Ethanol Level Trending View [id number] 23:44:00 16-Feb-2018 05:25:00 Ethanol [id number] AA <10 Lab Comment:Called- RB to [email or web address] GARY , 02/23/2018 00:19 Acetylsalicylic Acid Level, Serum 22-Feb-2018 23:44:00 ResultValue Acetylsalicylic Acid Level, Serum <3 A Acetaminophen Level, Serum 22-Feb-2018 23:44:00 ResultValue Acetaminophen Level, Serum <10.0 A Triglycerides, Serum 22-Feb-2018 23:44:00 ResultValue Triglycerides, Serum 200 . AGE DESIRABLE BORDERLINE HIGH HIGH VERY HIGH 0 D-90 D 19 - 174 ---- ---- ---- 91 D- 9 Y 0 - 74 75 - 99 >/= 100 ---- 10-19 Y 0 - 89 90 - 129 >/= 130 ---- H Complete Blood Count 16-Feb-2018 05:25:00 ResultValue White Blood Cell Count 4.7 Red Blood Cell Count 4.13 L HGB 13.3 L HCT 38.4 L MCV 93 MCHC 34.6 PLT 146 L RDW-CV 14.8 H Renal Function Panel 16-Feb-2018 05:25:00 ResultValue Glucose, Serum 96 NA 139 K 3.3 L CL 102 Bicarbonate, Serum 29 Anion Gap, Serum 11 BUN 9 CREAT 0.57 GFR-Non >60 GFR- >60 Calcium, Serum 8.8 Phosphorus, Serum 3.7 ALB 3.7 Magnesium, Serum 16-Feb-2018 05:25:00 ResultValue Magnesium, Serum 1.92 Radiology Results: Results: Impression: No acute intracranial abnormality. No acute cervical spine fracture or malalignment. CT C Spine without Contrast [Feb 22 2018 11:43PM] Impression: No acute intracranial abnormality. No acute cervical spine fracture or malalignment. CT Head without Contrast [Feb 22 2018 11:43PM] Impression: Questionable subtle hazy right lower lung zone attenuation which may represent atelectasis. Developing pneumonia cannot be excluded in the correct clinical setting. Xray Chest 2 View PA + Lateral [Feb 14 2018 10:22AM] Assessment and Plan: Assessment: Unresponsiveness/coma, in the setting of acute alcohol intoxication, SZ/post ictal is a possibility Acute hypoxic respiratory failure on mechanical ventilation , intubated for airway protection Hypokalemia elevated liver enzymes , consider alcoholic hepatitis Closed head trauma, followed by surgery, negative poole so far Alcohol abuse at risk of withdrawal and DT Plan: Continue vent support, FU ABG, chest imaging, adjust settings as needed Monitor mental and neurostatus closely, IV sedation as needed for agitaion IVF, MVI, thiamine, folate, replace electrolytes as needed Trend LFT FU trauma surgery recs, cont cervical collar for now will need counseling on alcohol abuse when extubated Discussed with RN and trauma surgery re management ICU STAFF PHYSICIAN NOTE OF PERSONAL INVOLVEMENT IN CARE As the attending physician, I certify that I personally reviewed the patient's history and personally examined the patient to confirm the physical findings described above, and that I reviewed the relevant imaging studies and available reports. This patient has a high probability of sudden, clinically significant deterioration, which requires the highest level of physician preparedness to intervene urgently. I managed/supervised life or organ supporting interventions that required frequent physician assessment. I devoted my full attention to the direct care of this patient for the amount of time indicated below. Time I spent with family or surrogate(s) is included only if the patient was incapable of providing the necessary information or participating in medical decision- making. Time devoted to teaching and to any procedures I billed separately is not included. Critical Care Time: 55 minutes Signatures/Attestation/Certification: Attending Provider Inpatient Certification StatementI certify this patients need for inpatient care based on the above documentation including; the order to admit as inpatient, the anticipated length of stay, diagnosis, problem list and plan of care, and discharge plan. Electronic Signatures: Adelfo Potter) (Signed 23-Feb-2018 00:38) Authored: History of Present Illness, Comorbidities, Family History, Social History, Allergies, Medications Prior to Admission, Review of Systems, Objective, Assessment and Plan, Signatures/Attestation/Certification Last Updated: 23-Feb-2018 00:38 by Adelfo Potter) CONSULT-TRAUMA SURGERY Observed: 02/22/2018 Status: COMPLETED Source: [facility] 11:48 PM MEDICAL CENTER REPOSITORY Service: Service: Trauma Surgery Consult: Consult requested by (Attending Name): Dr Pascual Patino Reason: unresponsive, concern for head injury History of Present Illness: Admission Reason: unresponsive concern for airway protection requiring intubation, concern for trauma HPI: 37yr M with Past medical h/o alcohol abuse multiple prior admissions with intoxication/withdrawal,, schizoaffective disorder, presented to ED after being found unresponsive by a bus stop for uncertain amount of time . In ED was intubated for airway protection. A full trauma activation was called given right forehead bruising with concern for head injury CT head/cervical spine showed no acute process or fractures. Blood alcohol level was 486. Given presentation, history was obtained from talking with ED physicians and reviewing past records Past Medical/Surgical History: Medical History: Alcohol dependence with uncomplicated withdrawal: Overdose of antidepressant: Overdose of antipsychotic: Alcohol addiction: Schizoaffective disorder: Review Family/Social History and ROS: Family History: Family History: unable to obtain Social History: Alcohol Use: daily Drug Use: unknown Allergies: morphine: Hives/Urticaria Horse: Swelling/Edema, Anaphylaxis, Facial Swelling opiates: Unknown narcotic analgesics: Unknown Objective: Objective Information: T PRBPSpO2 [id number]/7099% Date/Time02/22 22: 22: 22: 22: 22:27 Range(36.6C - 36.6C ) (99 - 99 ) (10 - 10 ) (118 - 118 )/ (70 - 70 ) (99% - 99% ) Vent Settings 02/23 8:31ModesAC, VC 02/23 8:31Rate Set (breaths/min)14 02/23 8:31Tidal Volume Set (mL)500 02/23 8:31PEEP (cm H2O)5 02/23 8:31FiO2 (%)30 02/23 8:31Flow Rate (L/min)60 Vent Data 02/22 23:02Ventilator IdentificationESPRIT 4990 02/22 23:02Start 02/22 23:02Start Time23:02 02/22 23:02Ventilator Days and Hours0 Hours Non-Invasive 02/23 8:31High Inspiratory Pressure (cm H2O)50 02/23 8:31Low Inspiratory Pressure (cm H2O)10 Physical Exam: Constitutional: sedated Eyes: reactive to light ENMT: no sign of external trauma, no crepitus on palpation Head/Neck: intubated, trachea midline, small bruise over right upper eyebrow Respiratory/Thorax: no sign of trauma, crepitus, bruises, symmetrical chest rise on ventilator Cardiovascular: regular Gastrointestinal: soft, non tender non distended, rectal exam: tone present, no sign of external trauma Genitourinary: Mohr clear urine no blood Musculoskeletal: back: midline no stepoff or deformities, pelvis stable, Extremities: no sign of any injurie Neurological: opening eyes spontaneously, moving all extremities, non purposefully, withdraws to pain 8T(recently adminstered paralytics and propofols so exam may be inaccurate) Skin: warm Medications: Medications: Continuous Medications 1. Propofol 10 mg/mL Infusion: 5 mcg/kg/min IntraVenous <Continuous> Scheduled Medications No scheduled medications are active PRN Medications 1. Polyethylene Glycol: 17 gram(s) Oral Daily Recent Lab Results: Results: I have reviewed these laboratory results: Complete Blood Count + Differential 22-Feb-2018 23:44:00 ResultValue White Blood Cell Count 4.6 Nucleated Erythrocyte Count 0.0 Red Blood Cell Count 4.52 HGB 14.7 HCT 43.8 MCV 97 MCHC 33.6 PLT 179 RDW-CV 15.9 H Neutrophil % 47.0 Immature Granulocytes % 0.6 Lymphocyte % 34.4 Monocyte % 15.8 Eosinophil % 1.1 Basophil % 1.1 Neutrophil Count 2.17 Lymphocyte Count 1.59 Monocyte Count 0.73 Eosinophil Count 0.05 Basophil Count 0.05 Comprehensive Metabolic Panel 22-Feb-2018 23:44:00 ResultValue Glucose, Serum 138 H NA 142 K 3.3 L CL 104 Bicarbonate, Serum 24 Anion Gap, Serum 17 BUN 14 CREAT 0.76 GFR-Non >60 GFR- >60 Calcium, Serum 8.6 ALB 4.4 ALKP 120 T Pro 6.9 T Bili 0.3 Alanine Aminotransferase, Serum 142 H Aspartate Transaminase, Serum 71 H Troponin I, Serum 22-Feb-2018 23:44:00 ResultValue Troponin I, Serum <0.02 Ethanol Level 22-Feb-2018 23:44:00 ResultValue Ethanol Level 486 AA Lab Comment: Called- RB to [email or web address] RN , 02/23/2018 00:19 Acetylsalicylic Acid Level, Serum 22-Feb-2018 23:44:00 ResultValue Acetylsalicylic Acid Level, Serum <3 A Acetaminophen Level, Serum 22-Feb-2018 23:44:00 ResultValue Acetaminophen Level, Serum <10.0 A Triglycerides, Serum 22-Feb-2018 23:44:00 ResultValue Triglycerides, Serum 200 . AGE DESIRABLE BORDERLINE HIGH HIGH VERY HIGH 0 D-90 D 19 - 174 ---- ---- ---- 91 D- 9 Y 0 - 74 75 - 99 >/= 100 ---- 10-19 Y 0 - 89 90 - 129 >/= 130 ---- H Radiology Results: Results: No Results have been selected. Please select Results from the Available Results list before marking as Reviewed. Impression: No acute intracranial abnormality. No acute cervical spine fracture or malalignment. CT C Spine without Contrast [Feb 22 2018 11:43PM] Impression: No acute intracranial abnormality. No acute cervical spine fracture or malalignment. CT Head without Contrast [Feb 22 2018 11:43PM] Assessment: presented with acute alcohol intoxication, intubated for airway protection a primary and secondary survey was performed, small abrasion right eyebrow nothing to do CT head and neck images and report reviewed: no sign of any injuries FAST performed: no intra-abdominal fluid or pericardial fluid noted CXR and pelvis reviewed: no injuries noted admit to ICU, trauma team will be on consult Electronic Signatures for Addendum Section: SOLE COSTELLO) (Signed Addendum 23-Feb-2018 10:40) discussed with ED team and ICU physician overnight Electronic Signatures: SOLE COSTELLO) (Signed 23-Feb-2018 10:37) Authored: Service, History of Present Illness, Past Medical/Surgical History, Review Family/Social History and ROS, Allergies, Objective, Assessment/Recommendations, Signature/Cosignature/Attestation Last Updated: 23-Feb-2018 10:40 by SOLE COSTELLO) ARTERIAL BLOOD GAS Collected: 02/22/2018 Status: F Source: [facility] 11:47 PM MEDICAL CENTER REPOSITORY TYPE CODE TESTS RESULT OUT OF REFERENCE UNITS RANGE LAB PHART(LOIN 7.38 - 7.42 C) pH Low 7.36 LAB PCO2A(LOIN 38 - 42 mmHg C) PCO2 High 50 LAB PO2A(LOINC 85 - 95 mmHg ) PO2 High 229 LAB TEMP(LOINC degrees C ) PATIENT TEMPERATURE 37.0 Result Comment: NOTE: PATIENT RESULTS ARE NOT CORRECTED FOR TEMPERATURE. LAB FIO2(LOINC) % FIO2 50 LAB SO2%A(LOINC) 94 - 100 % SO2 100 LAB BSEXB(LOINC) -2.0 - mmol/L 3.0 BASE EXCESS-BLOOD 1.9 LAB BICAR(LOINC) 22.0 - mmol/L 26.0 BICARB, High CALCULATED 28.2 LAB BGSIT(LOINC) SITE OF R ARTERIAL PUNCTURE Radial LAB BGALL(LOINC) JAMAAL'S TEST[COLLATERAL Positive CIRCULATION] LAB VMODE(LOINC) VENTILATOR MODE A/C LAB VRATE(LOINC) VENTILATOR RATE 14.0000 LAB TLVOL(LOINC) TIDAL VOLUME 500.0000 LAB TMVOL(LOINC) TOTAL MINUTE VOLUME 7.1000 LAB PEEP(LOINC) PEEP CMH2O 5.0000 LAB BPM(LOINC) FREQUENCY (BPM) 14.0000 Performed By: #### [email or web address] #### [facility] [address] [place] [address] CBC AND DIFFERENTIAL Collected: 02/22/2018 Status: F Source: [facility] 11:44 PM MEDICAL CENTER REPOSITORY TYPE CODE TESTS RESULT OUT OF REFERENCE UNITS RANGE LAB WBCR(LOINC 4.4 - 11.3 x10E9/L ) WBC 4.6 LAB NRBC(LOINC 0.0 - 0.0 /100 WBC ) NUCLEATED RBC 0.0 LAB RBCCT(LOIN 4.50 - 5.90 x10E12/L C) RBC 4.52 LAB HGB(LOINC) 13.5 - 17.5 g/dL HGB 14.7 LAB HCT(LOINC) 41.0 - 52.0 % HCT 43.8 LAB MCV(LOINC) 80 - 100 fL MCV 97 LAB MCHC2(LOIN 32.0 - 36.0 g/dL C) MCHC 33.6 LAB PLTCT(LOIN 150 - 450 x10E9/L C) PLT 179 LAB RDWCV(LOIN 11.5 - 14.5 % C) RDW-CV High 15.9 LAB NEUT(LOINC 40.0 - 80.0 % ) % NEUTROPHIL 47.0 LAB IG(LOINC) 0.0 - 0.9 % % AUTOMATED 0.6 IMMATURE GRAN Result Comment: Percent differential counts (%) should be interpreted in the context of the absolute cell counts (cells/L). LAB LYMPH(LOINC) 13.0 - 44.0 % % LYMPHOCYTE 34.4 LAB MONO(LOINC) 2.0 - 10.0 % % MONOCYTE 15.8 LAB EOS(LOINC) 0.0 - 6.0 % % EOSINOPHIL 1.1 LAB BASO(LOINC) 0.0 - 2.0 % % BASOPHIL 1.1 LAB #NEUT(LOINC) 1.20 - 7.70 x10E9/L NEUTROPHIL 2.17 LAB #LYMP(LOINC) 1.20 - 4.80 x10E9/L LYMPHOCYTE 1.59 LAB #MONO(LOINC) 0.10 - 1.00 x10E9/L MONOCYTE 0.73 LAB #EOS(LOINC) 0.00 - 0.70 x10E9/L EOSINOPHIL 0.05 LAB #BASO(LOINC) 0.00 - 0.10 x10E9/L BASOPHIL 0.05 Performed By: #### CBCDF #### [facility] [address] [place] [address] COMPREHENSIVE PANEL Collected: 02/22/2018 Status: F Source: [facility] 11:44 PM MEDICAL CENTER REPOSITORY TYPE CODE TESTS RESULT OUT OF REFERENCE UNITS RANGE LAB GLU(LOINC) 74 - 99 mg/dL GLUCOSE High 138 LAB SOD(LOINC) 136 - 145 mmol/L SODIUM 142 LAB K(LOINC) 3.5 - 5.3 mmol/L Low POTASSIUM 3.3 LAB CHLOR(LOIN 98 - 107 mmol/L C) CHLORIDE 104 LAB BIC(LOINC) 21 - 32 mmol/L BICARBONATE 24 LAB ANGAP(LOIN 10 - 20 mmol/L C) ANION GAP 17 LAB UREA(LOINC 6 - 23 mg/dL ) UREA NITROGEN 14 LAB CREA(LOINC 0.50 - 1.30 mg/dL ) CREATININE 0.76 LAB GFRFN(LOIN >60 mL/min/1.7 C) 3m2 GFR-NON AM. >60 LAB GFRAA(LOIN >60 mL/min/1.7 C) 3m2 GFR- AM. >60 Result Comment: CALCULATIONS OF ESTIMATED GFR ARE PERFORMED USING THE MDRD STUDY EQUATION FOR THE IDMS-TRACEABLE CREATININE METHODS. CLIN CHEM 2007;53:766-72 LAB CA(LOINC) 8.6 - 10.3 mg/dL CALCIUM 8.6 LAB ALB(LOINC) 3.4 - 5.0 g/dL ALBUMIN 4.4 LAB AP(LOINC) 33 - 120 U/L ALKALINE PHOSPHATASE 120 LAB TP(LOINC) 6.4 - 8.2 g/dL TOTAL PROTEIN 6.9 LAB AST(LOINC) 9 - 39 U/L AST High 71 LAB TBILI(LOINC) 0.0 - 1.2 mg/dL BILIRUBIN,TOTAL 0.3 LAB ALT(LOINC) 10 - 52 U/L ALT High 142 Result Comment: Patients treated with Sulfasalazine may generate falsely decreased results for ALT. Performed By: #### CMP #### [facility] [address] [place] [address] TRIGLYCERIDES Collected: 02/22/2018 Status: F Source: [facility] 11:44 [facility] REPOSITORY TYPE CODE TESTS RESULT OUT OF REFERENCE UNITS RANGE LAB TRIG(LOINC 0 - 149 mg/dL ) TRIGLYCERIDES High 200 Result Comment: . AGE DESIRABLE BORDERLINE HIGH HIGH VERY HIGH 0 D-90 D 19 - 174 ---- ---- ---- 91 D- 9 Y 0 - 74 75 - 99 >/= 100 ---- 10-19 Y 0 - 89 90 - 129 >/= 130 ---- 20-24 Y 0 - 114 115 - 149 >/= 150 ---- >24 Y 0 - 149 150 - 199 200- 499 >/= 500 . Venipuncture immediately after or during the administration of Metamizole may lead to falsely low results. Testing should be performed immediately prior to Metamizole dosing. Performed By: #### TRIG #### [facility] [address] [place] [address] TROPONIN I Collected: 02/22/2018 Status: F Source: [facility] 11:44 [facility] REPOSITORY TYPE CODE TESTS RESULT OUT OF REFERENCE UNITS RANGE LAB TROP2(LOINC 0.00 - 0.03 ng/mL ) TROPONIN I <0.02 Result Comment: LESS THAN 0.04 NG/ML: NEGATIVE REPEAT TESTING IN FOUR TO SIX HOURS IF CLINICALLY INDICATED. 0.04 - 0.5 NG/ML: CONSISTENT WITH POSSIBLE CARDIAC DAMAGE AND POSSIBLE INCREASED CLINICAL RISK. SERIAL MEASUREMENTS MAY HELP ASSESS EXTENT OF MYOCARDIAL DAMAGE. >0.5 NG/ML: CONSISTENT WITH CARDIAC DAMAGE, INCREASED CLINICAL RISK AND MYOCARDIAL INFARCTION. SERIAL MEASUREMENTS MAY HELP ASSESS EXTENT OF MYOCARDIAL DAMAGE. . Note: Troponin I testing is performed using different testing methodology at [facility] than at other [facility]. Direct result comparisons should only be made within the same method. Performed By: #### TROP2 #### [address] [address] ACETAMINOPHEN Collected: 02/22/2018 Status: F Source: [facility] 11:44 PM [facility] REPOSITORY TYPE CODE TESTS RESULT OUT OF RANGE REFERENCE UNITS LAB ACETA(KAREN 10.0 - 30.0 ug/mL NC) ACETAMINOPHEN Abnormal <10.0 Performed By: #### ACETA #### [address] [address] SALICYLATE Collected: 02/22/2018 Status: F Source: [facility] 11:44 [facility] REPOSITORY TYPE CODE TESTS RESULT OUT OF RANGE REFERENCE UNITS LAB SALIC(LOIN 4 - 20 mg/dL C) Abnormal SALICYLATE <3 Performed By: #### SALIC #### [address] [address] ALCOHOL Collected: 02/22/2018 Status: F Source: [facility] 11:44 [facility] REPOSITORY Order Comment: Called- RB to Marbella GONZALEZ , 02/23/2018 00:19 TYPE CODE TESTS RESULT OUT OF RANGE REFERENCE UNITS LAB ALC(LOINC) mg/dL Unknown ALCOHOL 486 Result Comment: FOR MEDICAL USE ONLY. . REF VALUES <10 Called- RB to Marbella RN , 02/23/2018 00:19 Performed By: #### ALC #### [address] [address] PROVIDER NOTE - ED Observed: 02/22/2018 Status: COMPLETED Source: [facility] V2 11:42 PM MEDICAL CENTER REPOSITORY Provider Note - ED v2: Chart Review: ED NOTES ED NOTES: Scribed by: Eleanor Barrientos History of Present Illness: History limited due to patients unresponsiveness. Patient is a 37y/o male with a PMHx of seizure disorder, alcohol abuse, hypertension, GERD, and schizoaffective disorder, presenting to the ED via EMS with complaint of intoxication. Per EMS, the patient was found passed outside a building. A civilian, near a bus stop saw the patient and called police. The patient was unresponsive with EMS, and continued to be unresponsive in the ED. Review of Systems: (Bold = Positive) Constitutional: No reported Fevers, Chills, Anorexia, Weight Loss, Malaise Respiratory: No Cough, Hemoptysis, Wheezing, Shortness of Breath Cardiac: No Chest Pain, Dyspnea on Exertion, Orthopnea, Palpitations Gastrointestinal: No Nausea, Vomiting, Diarrhea, Constipation, Abdominal Pain Musculoskeletal: No Decreased ROM, Pain, Swelling, Stiffness, Weakness Neurological: No Dizziness, Confusion, Headache, Seizures, Syncope Genitourinary: No Discharge, Dysuria, Flank Pain, Frequency, Hematuria Eyes: No Blurry Vision, Diplopia, Redness, Vision Loss or changes ENT: No Nasal Congestion, Ear Pain, Mouth Pain, Throat Pain Past Medical History: Schizoaffective disorder, ETOH abuse Vital Signs: Listed on the chart. Reviewed. Medications: As listed on the chart. Allergies: As listed on the chart. Family History: No family history pertinent to current patient complaint. Social History: Denies smoking. Denies ETOH. Denies illicit drugs. No recent travel. PHYSICAL EXAM: (Physical exam limited due to patients unresponsiveness) GENERAL: Unresponsive. GCS 3 HEAD: Normocephalic. + questionable ecchymosis to right forehead ENT: No posterior oropharyngeal or tonsillar erythema, exudates, or edema. Patent oropharynx. Uvula midline, non-edematous and non-erythematous. Patent external auditory canals with dull, non-erythematous TM. No hemotympanum. No septal hematoma. NEUROLOGY: GCS 3 - Pt is unresponsive to painful stimuli EYES: Eyes with lateral movement bilaterally CARDIAC: Sinus rhythm. No murmurs/rubs/gallops. No jugular venous distention. No peripheral cyanosis or pallor. PULMONARY: Wheezing, Rhonchi. Equal bilateral breath sounds. ABDOMINAL: Soft and nontender in all quadrants. No peritoneal signs. No rebound tenderness/guarding/abdominal distention/abdominal masses. No pulsatile mass. SKIN: No lesions, rash, petechiae, or purpura. EXTREMITIES: No edema. Warm and well perfused. No cyanosis. Equal pulses of the UE and LE. MUSCULOSKELETAL: No limitations in passive motion. No tenderness. No deformities. No gross dislocations. GENITOURINARY: No obvious penile trauma HISTORY OF PRESENTING ILLNESS ZAINA is a 37 year old Male and was seen by me at 22-Feb-2018 22:14 for a chief complaint of unresponsive (Pt was found unresponsive at the side of a building. Pt unresponsive on arrival to painful stimuli. No purposeful movements noted. C-collar in place. Pupils unresponsive to light, they are moving slowly back and forth. Skin pink. RR 10.)(1). Triage Information: Most recent Vital Sign Value Date Temp (F): 97.8 02-22-2018 22:27 Temp (C): 36.6 02-22-2018 22:27 Heart Rate (beats/min): 99 02-22-2018 22:27 Respirations (breaths/min): 10 02-22-2018 22:27 SpO2 (%): 99 02-22-2018 22:27 BP Systolic (mm Hg): 118 02-22-2018 22:27 BP Diastolic (mm Hg): 70 02-22-2018 22:27 PAST MEDICAL HISTORY ATTESTATION: I have reviewed and confirmed nurse's/medic's notes for patient's medications, allergies, medical history, and surgical history ALLERGIES/INTOLERANCES: Allergy Allergen: morphine Type: Drug Reaction: Hives/Urticaria Allergen: Horse Type: Environment Reaction: Swelling/Edema Anaphylaxis Facial Swelling Allergen: opiates Type: Drug Category Reaction: Unknown Allergen: narcotic analgesics Type: Drug Category Reaction: Unknown HEALTH HISTORY: Medical History Name:Schizoaffective disorder Code:F25.9 Name:Alcohol addiction Code:F10.20 Name:Overdose of antipsychotic Code:T43.501A Name:Overdose of antidepressant Code:T43.201A Name:Alcohol dependence with uncomplicated withdrawal Code:F10.230 OUTPATIENT MEDICATIONS: Home Medications Review Status for Reconciliation: N/A Med Status: Patient Currently Takes Medications Drug Name: LamISIL AT 1% topical cream Instructions: Apply topically to affected area once a day Drug Name: gabapentin 400 mg oral capsule Instructions: 2 cap(s) orally 3 times a day Drug Name: busPIRone 15 mg oral tablet Instructions: 1 tab(s) orally every 8 hours Drug Name: ziprasidone 60 mg oral capsule Instructions: 1 cap(s) orally 2 times a day Drug Name: nicotine 21 mg/24 hr transdermal film, extended release Instructions: 1 patch transdermal every 24 hours Drug Name: thiamine 100 mg oral tablet Instructions: 1 tab(s) orally once a day Drug Name: folic acid 1 mg oral tablet Instructions: 1 tab(s) orally once a day Drug Name: omeprazole 40 mg oral delayed release capsule Instructions: 1 cap(s) orally once a day SIGNIFICANT EVENTS: Past Medical History Description:schizoaffective disorder Description:GERD Description:Hypertension (HTN) Description:EtOH abuse Description:Seizure Disorder Additional Notes:from alcohol withdraw RESULTS/VITAL SIGNS RESULTS: Recent Lab Results: I have reviewed these laboratory results: Urinalysis 23-Feb-2018 01:09:00 ResultValue Color, Urine COLORLESS Reference Range: STRAW,YELLOW Appearance, Urine CLEAR Specific [place], Urine 1.004 L pH, Urine 5.0 Protein, Urine NEGATIVE Glucose, Urine NEGATIVE Blood, Urine SMALL (1+) A Ketones, Urine NEGATIVE Bilirubin, Urine NEGATIVE Urobilinogen, Urine <2.0 Nitrite, Urine NEGATIVE Leukocyte Esterase, Urine NEGATIVE Complete Blood Count + Differential 22-Feb-2018 23:44:00 ResultValue White Blood Cell Count 4.6 Nucleated Erythrocyte Count 0.0 Red Blood Cell Count 4.52 HGB 14.7 HCT 43.8 MCV 97 MCHC 33.6 PLT 179 RDW-CV 15.9 H Neutrophil % 47.0 Immature Granulocytes % 0.6 Lymphocyte % 34.4 Monocyte % 15.8 Eosinophil % 1.1 Basophil % 1.1 Neutrophil Count 2.17 Lymphocyte Count 1.59 Monocyte Count 0.73 Eosinophil Count 0.05 Basophil Count 0.05 Comprehensive Metabolic Panel 22-Feb-2018 23:44:00 ResultValue Glucose, Serum 138 H NA 142 K 3.3 L CL 104 Bicarbonate, Serum 24 Anion Gap, Serum 17 BUN 14 CREAT 0.76 GFR-Non >60 GFR- >60 Calcium, Serum 8.6 ALB 4.4 ALKP 120 T Pro 6.9 T Bili 0.3 Alanine Aminotransferase, Serum 142 H Aspartate Transaminase, Serum 71 H Troponin I, Serum 22-Feb-2018 23:44:00 ResultValue Troponin I, Serum <0.02 Ethanol Level 22-Feb-2018 23:44:00 ResultValue Ethanol Level 486 AA Lab Comment: Called- RB to [email or web address] RN , 02/23/2018 00:19 Acetylsalicylic Acid Level, Serum 22-Feb-2018 23:44:00 ResultValue Acetylsalicylic Acid Level, Serum <3 A Acetaminophen Level, Serum 22-Feb-2018 23:44:00 ResultValue Acetaminophen Level, Serum <10.0 A Triglycerides, Serum 22-Feb-2018 23:44:00 ResultValue Triglycerides, Serum 200 . AGE DESIRABLE BORDERLINE HIGH HIGH VERY HIGH 0 D-90 D 19 - 174 ---- ---- ---- 91 D- 9 Y 0 - 74 75 - 99 >/= 100 ---- 10-19 Y 0 - 89 90 - 129 >/= 130 ---- H Radiology Results: Impression: No evidence of acute osseous abnormality involving the pelvis. Xray Pelvis 1 or 2 View [Feb 23 2018 1:07AM] Impression: 1. No consolidation or pleural effusion. 2. Endotracheal tube with the tip approximately 2 cm above the bekah, retraction by 1-2 cm recommended. 3. Enteric tube with the tip in the expected location of the gastric antrum. Xray Abdomen AP View [Feb 23 2018 12:47AM] Impression: 1. No consolidation or pleural effusion. 2. Endotracheal tube with the tip approximately 2 cm above the bekah, retraction by 1-2 cm recommended. 3. Enteric tube with the tip in the expected location of the gastric antrum. Xray Chest 1 View [Feb 23 2018 12:47AM] Impression: No acute intracranial abnormality. No acute cervical spine fracture or malalignment. CT C Spine without Contrast [Feb 22 2018 11:43PM] Impression: No acute intracranial abnormality. No acute cervical spine fracture or malalignment. CT Head without Contrast [Feb 22 2018 11:43PM] VITAL SIGNS: T PRBP SpO2O2(LPM) %FiO2 Method 23-Feb-2018 00:05:[id number]/71 100 22-Feb-2018 23:50:[id number]/84 99 22-Feb-2018 23:35:[id number] 100 22-Feb-2018 23:20:[id number]/118 100 22-Feb-2018 23:05:[id number]/103 100 22-Feb-2018 22:27:[id number]/70 99 supplemental O2 MEDICAL DECISION MAKING/ED COURSE MDM/ED COURSE: Medical Decision Making: The patient was seen and evaluated upon arrival in the ED. Differential diagnosis includes alcohol intoxication vs overdose versus head injury Before intubation, patient was put on 8 minutes of pre-oxygenation. Intubation was delay because of inadequate suction. Patient was given 20 mg of Etomidate and then 10 mg Vecuronium due to inability to open jaw. Patient was also given Propofol 60 mg IV and 5 mg Versed . Oxygen saturation remained at 100% during intubation. Pt remained hemodynamically stable throughout ED course. There were no other signs of trauma at this time. Patient was seen and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 without tryingno Have you been eating poorly because of a decreased appetiteno MST Score0 RiskMST = 0 or 1 Not at risk. Eating well with little or no weight loss Nutrition Consult needed this visitno Can Patient Participate in Room Serviceyes Patient requires Paper Dishes/Plastic Utensilsno Pain Screen: Pain Scalenumerical 0-10 Pain Scale Educationteaching provided Current Pain Level0 = None Acceptable Pain Level0 = None Expression of Pain (nonverbal)verbalization Chronic Painno Spiritual Screen: Are there any cultural, spiritual, anglican practices/values/needs that are important for us to knowno CAGE: Is this an injured patient at a Trauma Center ([facility] / [facility]): no Vaccinations: Vaccination - Influenza Vaccination Screen: Is it flu season (between and )Yes Screening for identified contraindications to influenza vaccinationno contraindications identified Influenza vaccine indicatedyes Vaccination - Pneumonia Vaccination Screen: Patient has received a previous pneumonia vaccine:no/unknown... Immunocompetent persons with underlying chronic conditions or reside in termite control technician care facilitiescigarette smoking Pneumonia vaccine NOT indicated due to:No contraindications to vaccine Pneumonia vaccine indicatedyes Malik: Skin - Malik Scale: Malik: Sensory Perception (response to environment)(4) no impairment Malik: Moisture (degree skin exposed to moisture)(4) rarely moist Malik: Activity (ability to walk)(3) walks occasionally Malik: Mobility (amount/control of body movement)(4) no limitation Malik: Nutrition (quality of food intake)(3) adequate Malik: Friction and Shear(3) no apparent problem Malik: Score21 Significant Indicatiors: Significant Indicators: Complete Pressure Injury: Pressure Injury Present on Admissionno Electronic Signatures: Harriett Mtz (CLIN COOR) (Signed 14-Feb-2018 14:58) Authored: Admission Risk Screens, Vaccinations, Malik, Pressure Injury Last Updated: 14-Feb-2018 14:58 by Harriett Mtz (CLIN COOR) PROVIDER NOTE - ED Observed: 02/14/2018 Status: COMPLETED Source: UNIVERSITY V2 1:27 PM HOSPITALS REPOSITORY Provider Note - ED v2: Chart Review: ED NOTES ED NOTES: HPI: 37 yo male with hx of alcoholism comes in with CC of withdrawal. Patient said his last drink was 7 am before coming in but it wasn't enough and he feels like he is starting to withdrawal. Patient reports anxiety, tactile sensations, restlessness. He also reports cough, shortness of breath for the last several days and wonders if he has pneumonia. No fevers, chills. He also complains of a rash on his upper left foot which is non-painful, nonpruritic. No trauma. No history of same. He has not tried anything for any of these symptoms. ROS: Complete ROS performed. Pertinent positives and negatives included in HPI. Meds: Buspar, Gabapentin, Geodon, Omeprazole PMH: schizoaffective, polysubstance abuse, GERD, CBP, etoh abuse with hx of withdrawal Social hx: daily heavy drinker, + opiates PHYSICAL EXAM: General: NAD, appears comfortable Skin: Warm. Dry. Intact. + left upper foot erythematous flat rash, blanching, non painful Eyes: Pupils equally round. Clear sclera. HENT: Atraumatic. Normo-cephalic. Mucosal membranes moist. CV: Somewhat tachycardic. No pedal edema. Respiratory: Nonlabored breathing. Speaks in full sentences. Clear to auscultation. GI: Soft. Non-tender. Non-distended. No rebound or guarding. MSK: Symmetric muscle bulk. No joint swelling in the extremities. Neuro: Alert. Oriented. Cranial nerves II - XII grossly intact. Speech is fluent. Psych: Kempt appearance. Maintains eye contact. Cooperative. Hospital Course / Medical Decision Making: Patient presents with multiple CC. He scored a 24 on his initial CIWA and was medicated with valium. Patient's CXR showed a questionable R infiltrated, however I have not heard patient cough here, he is afebrile, and has no leukocytosis. As patient is being admitted for withdrawal, he will be monitored for symptoms and abx will be deferred at this time. CMP showed mild hypokalemia. CIWA decreased to 12 after medication and patient will be admitted to [facility] (lack of tele beds at [facility]) for further management. Assessment: # Alcohol withdrawal Disposition / Plan: Admit Condition at disposition: Stable. HISTORY OF PRESENTING ILLNESS ZAINA is a 37 year old Male and was seen by me at 14-Feb-2018 09:05 for a chief complaint of detoxification . Triage Information: Most recent Vital Sign Value Date Temp (F): 97.8 02-14-2018 08:58 Temp (C): 36.6 02-14-2018 08:58 Heart Rate (beats/min): 111 02-14-2018 08:58 Respirations (breaths/min): 18 02-14-2018 08:58 SpO2 (%): 95 02-14-2018 08:58 BP Systolic (mm Hg): 130 02-14-2018 08:58 BP Diastolic (mm Hg): 81 02-14-2018 08:58 PAST MEDICAL HISTORY ATTESTATION: I have reviewed and confirmed nurse's/medic's notes for patient's medications, allergies, medical history, and surgical history ALLERGIES/INTOLERANCES: Allergy Allergen: morphine Type: Drug Reaction: Hives/Urticaria Allergen: Horse Type: Environment Reaction: Swelling/Edema Anaphylaxis Facial Swelling Allergen: opiates Type: Drug Category Reaction: Unknown Allergen: narcotic analgesics Type: Drug Category Reaction: Unknown HEALTH HISTORY: Medical History Name:Schizoaffective disorder Code:F25.9 Name:Alcohol addiction Code:F10.20 Name:Overdose of antipsychotic Code:T43.501A Name:Overdose of antidepressant Code:T43.201A Name:Alcohol dependence with uncomplicated withdrawal Code:F10.230 OUTPATIENT MEDICATIONS: Home Medications Review Status for Reconciliation: N/A Med Status: Patient Currently Takes Medications Drug Name: LamISIL AT 1% topical cream Instructions: Apply topically to affected area once a day Drug Name: gabapentin 400 mg oral capsule Instructions: 2 cap(s) orally 3 times a day Drug Name: busPIRone 15 mg oral tablet Instructions: 1 tab(s) orally every 8 hours Drug Name: ziprasidone 60 mg oral capsule Instructions: 1 cap(s) orally 2 times a day Drug Name: nicotine 21 mg/24 hr transdermal film, extended release Instructions: 1 patch transdermal every 24 hours Drug Name: thiamine 100 mg oral tablet Instructions: 1 tab(s) orally once a day Drug Name: folic acid 1 mg oral tablet Instructions: 1 tab(s) orally once a day Drug Name: omeprazole 40 mg oral delayed release capsule Instructions: 1 cap(s) orally once a day SIGNIFICANT EVENTS: Past Medical History Description:schizoaffective disorder Description:GERD Description:Hypertension (HTN) Description:EtOH abuse Description:Seizure Disorder Additional Notes:from alcohol withdraw CLINICAL IMPRESSION Diagnosis/Annotation: ED Dx Name:Alcohol withdrawal syndrome Code:F10.239 Dispostion: hospitalized ATTESTATION Attestation: I saw and evaluated the patient. I personally obtained the goodwin and critical portions of the history and physical exam or was physically present for goodwin and critical portions performed by the resident/fellow. I reviewed the resident/fellows documentation and discussed the patient with the resident/fellow. I agree with the resident/fellows medical decision making as documented in the residents note CRITICAL CARE TIME Is this a critically ill patient: no Electronic Signatures: Nayely Casiano (Resident)) (Signed 16-Feb-2018 13:16) Authored: Provider Note - ED v2 Marisa Hernandez) (Signed 17-Feb-2018 03:00) Authored: Provider Note - ED v2 Co-Signer: Provider Note - ED v2 Last Updated: 17-Feb-2018 03:00 by Marisa Hernandez) References: 1. Data Referenced From Triage - ED 02/14/2018 8:58 AM EMR ADDON Collected: 02/14/2018 Status: F Source: DRIVER 12:55 PM HOSPITALS REPOSITORY TYPE CODE TESTS RESULT OUT OF REFERENCE UNITS RANGE LAB EMRAC(LOIN C) ADDON CONFIRMATION REQUEST REC'D Performed By: #### EMRAD #### NO LOCATION NEEDED TH CHEST 2 VIEW PA Observed: 02/14/2018 Status: F Source: [facility] 9:39 AM HOSPITALS REPOSITORY Patient Name: ZAINA DOLL STUDY: TH CHEST 2 VIEW PA AND LAT; 02/14/2018 9:39 am INDICATION: Signs/Symptoms: reported cough sob. COMPARISON: 09/01/2017 chest x-ray ACCESSION NUMBER(S): [id number] ORDERING CLINICIAN: NAYELY CASIANO FINDINGS: AP and lateral views of the chest are provided. There is questionable increased hazy attenuation in the right lower lung zone compared to the prior on 09/01/2017. There is no new focal consolidation, pleural effusion, or pneumothorax. The cardiomediastinal silhouette is stable in size and morphology. The trachea is midline. No acute osseous abnormalities. IMPRESSION: Questionable subtle hazy right lower lung zone attenuation which may represent atelectasis. Developing pneumonia cannot be excluded in the correct clinical setting. I personally reviewed the images/study and I agree with the findings as stated. This study was interpreted at [facility], [place], [place]. Electronically signed by: SAMANTHA MANN MD CBC AND DIFFERENTIAL Collected: 02/14/2018 Status: F Source: DRIVER 9:38 AM HOSPITALS REPOSITORY TYPE CODE TESTS RESULT OUT OF REFERENCE UNITS RANGE LAB WBCR(LOINC 4.4 - 11.3 x10E9/L ) Low WBC 4.0 LAB NRBC(LOINC 0.0-0.0 /100 WBC ) NUCLEATED RBC 0.0 LAB RBCCT(LOIN 4.50 - 5.90 x10E12/L C) Low RBC 4.38 LAB HGB(LOINC) 13.5 - 17.5 g/dL HGB 14.0 LAB HCT(LOINC) 41.0 - 52.0 % Low HCT 40.3 LAB MCV(LOINC) 80 - 100 fL MCV 92 LAB MCHC2(LOIN 32.0 - 36.0 g/dL C) MCHC 34.7 LAB PLTCT(LOIN 150 - 450 x10E9/L C) PLT 192 LAB RDWCV(LOIN 11.5 - 14.5 % C) RDW-CV High 15.3 LAB NEUT(LOINC 40.0 - 80.0 % ) % NEUTROPHIL 38.8 LAB IG(LOINC) 0.0 - 0.9 % % AUTOMATED 0.2 IMMATURE GRAN Result Comment: Percent differential counts (%) should be interpreted in the context of the absolute cell counts (cells/L). LAB LYMPH(LOINC) 13.0 - 44.0 % % LYMPHOCYTE 48.6 LAB MONO(LOINC) 2.0 - 10.0 % % MONOCYTE 9.2 LAB EOS(LOINC) 0.0 - 6.0 % % EOSINOPHIL 2.2 LAB BASO(LOINC) 0.0 - 2.0 % % BASOPHIL 1.0 LAB #NEUT(LOINC) 1.20 - 7.70 x10E9/L NEUTROPHIL 1.55 LAB #LYMP(LOINC) 1.20 - 4.80 x10E9/L LYMPHOCYTE 1.95 LAB #MONO(LOINC) 0.10 - 1.00 x10E9/L MONOCYTE 0.37 LAB #EOS(LOINC) 0.00 - 0.70 x10E9/L EOSINOPHIL 0.09 LAB #BASO(LOINC) 0.00 - 0.10 x10E9/L BASOPHIL 0.04 Performed By: #### CBCDF #### [facility] [address] [place] [address] MAGNESIUM Collected: 02/14/2018 Status: F Source: DRIVER 9:38 HOSPITALS REPOSITORY TYPE CODE TESTS RESULT OUT OF REFERENCE UNITS RANGE LAB MG(LOINC) 1.60 - 2.40 mg/dL MAGNESIUM 2.01 Performed By: #### MG #### [facility] [address] [place] [address] COMPREHENSIVE PANEL Collected: 02/14/2018 Status: F Source: DRIVER 9:[address] [place] [address] REPOSITORY TYPE CODE TESTS RESULT OUT OF REFERENCE UNITS RANGE LAB GLU(LOINC) 74 - 99 mg/dL GLUCOSE 91 LAB SOD(LOINC) 136 - 145 mmol/L SODIUM 143 LAB K(LOINC) 3.5 - 5.3 mmol/L Low POTASSIUM 3.3 LAB CHLOR(LOIN 98 - 107 mmol/L C) CHLORIDE 105 LAB BIC(LOINC) 21 - 32 mmol/L BICARBONATE 27 LAB ANGAP(LOIN 10 - 20 mmol/L C) ANION GAP 14 LAB UREA(LOINC 6 - 23 mg/dL ) UREA NITROGEN 10 LAB CREA(LOINC 0.50 - 1.30 mg/dL ) CREATININE 0.60 LAB GFRFN(LOIN >60 mL/min/1.7 C) 3m2 GFR-NON AM. >60 LAB GFRAA(LOIN >60 mL/min/1.7 C) 3m2 GFR- AM. >60 Result Comment: CALCULATIONS OF ESTIMATED GFR ARE PERFORMED USING THE MDRD STUDY EQUATION FOR THE IDMS-TRACEABLE CREATININE METHODS. CLIN CHEM 2007;53:766-72 LAB CA(LOINC) 8.6 - 10.6 mg/dL CALCIUM 8.8 LAB ALB(LOINC) 3.4 - 5.0 g/dL ALBUMIN 4.1 LAB AP(LOINC) 33 - 120 U/L ALKALINE PHOSPHATASE 108 LAB TP(LOINC) 6.4 - 8.2 g/dL TOTAL PROTEIN 6.4 LAB AST(LOINC) 9 - 39 U/L AST High 40 LAB TBILI(LOINC) 0.0 - 1.2 mg/dL BILIRUBIN,TOTAL 0.2 LAB ALT(LOINC) 10 - 52 U/L ALT 35 Result Comment: Patients treated with Sulfasalazine may generate falsely decreased results for ALT. Performed By: #### CMP #### [facility] [address] [place] [id number] ALCOHOL Collected: 02/14/2018 Status: F Source: DRIVER 9:38 AM HOSPITALS REPOSITORY Order Comment: [facility], 02/14/2018 13:56 TYPE CODE TESTS RESULT OUT OF RANGE REFERENCE UNITS LAB ALC(LOINC) mg/dL Abnormal ALCOHOL 414 Result Comment: FOR MEDICAL USE ONLY. . REF VALUES <10 CRIT ALC TO NAYELY CASIANO 2ID, 02/14/2018 13:56 Performed By: #### ALC #### [facility] [address] [place] [id number] TRIAGE - ED Observed: 02/14/2018 Status: UNK Source: DRIVER 8:58 AM HOSPITALS REPOSITORY Chart Review: CHIEF COMPLAINT ZAINA DOLL is a Male patient with a chief complaint of detoxification (alcohol withdrawal, pt states he thinks he has pneumonia). Triage Date/Time: 14-Feb-2018 08:59 Vital Signs: Temperature: 97.8F ( 36.6C) Blood Pressure: 130/81 Mean: Heart Rate: 111 Respiratory Rate: 18 Pulse Oximetry: 95% on room air, no respiratory support. Height: 6 feet 3.00 inches. 190.5 CM Weight: 200.0 pounds. Calculated 90.7 kg. (stated) Calculated BMI (kg/m2): 24.992 Calculated BSA (m2) 2.19 Cough lasting greater than 3 weeks: no Travel outside of [place]: no Allergies: yes Patient has suicidal thoughts: no Patient has homicidal thoughts: no GEOVANNA: 2 PAIN Pain Scale Used: ALLI Past Medical History: Past Medical History Reviewedyes Seizure Disorder: Past Medical History, from alcohol withdraw, Active EtOH abuse: Past Medical History, Active Hypertension (HTN): Past Medical History, Active GERD: Past Medical History, Active schizoaffective disorder: Past Medical History, Active Electronic Signatures: Nuria Cuhng (GARY) (Signed 14-Feb-2018 09:08) Authored: Triage, Past Medical History Alma Bray (SUSANA) (Signed 14-Feb-2018 09:00) Authored: Triage, Past Medical History Last Updated: 14-Feb-2018 09:08 by Nuria Chung (GARY) CT HEAD W/O CONTRAST Observed: 02/11/2018 Status: F Source: THE [place] [facility] 9:28 AM SYSTEM REPOSITORY EXAMINATION: CT HEAD W/OED CLINICAL HISTORY: pain TECHNOLOGISTS NOTE: COMPARISON: February 12, 2004 TECHNIQUE: Thin axial imaging of the head was performed without intravenous contrast. FINDINGS: Acute Findings: No evidence of acute hemorrhage, mass, or infarct. Chronic Changes: Calcification of the globus pallidus, bilaterally unchanged since 2003. Ventricles and sulci: Within normal limits for age. Other: The skull, included paranasal sinuses and orbits are unremarkable. IMPRESSION: 1. No acute intracranial injuries. 2. Calcification in globus pallidus unchanged. MACRO: None CT C-SPINE W/O Observed: 02/11/2018 Status: F Source: THE [place] [facility] CONTRAST 9:28 AM SYSTEM REPOSITORY EXAMINATION: CT C-SPINE W/OED CLINICAL HISTORY: pain TECHNOLOGISTS NOTE: COMPARISON: None TECHNIQUE: Thin isotropic axial images were obtained from the skull base to the upper thoracic spine without intravenous contrast. 2D sagittal and coronal reconstructions were obtained from the axial data. FINDINGS: Alignment: Within normal limits Craniocervical junction: Within normal limits Vertebrae: No evidence of an acute fracture. No osseous lesions. Soft Tissues: Within normal limits. Canal and foramina: Patent. IMPRESSION: No cervical spine fracture or traumatic malalignment. MACRO: None CT FACIAL BONES W/O Observed: 02/11/2018 Status: F Source: [facility] [place] [facility] CONTRAST 9:28 AM SYSTEM REPOSITORY EXAMINATION: CT FACIAL BONES W/OED CLINICAL HISTORY: pain TECHNOLOGISTS NOTE: COMPARISON: None TECHNIQUE: CT Maxillofacial Area Without Contrast. Thin isotropic axial images were obtained through the maxillofacial area without intravenous contrast. 2D sagittal and coronal reconstructions were obtained from the axial data. FINDINGS: There is soft tissue swelling over the right orbit, with preseptal edema and no drainable fluid collection. The globe and lens are intact. There is no orbital fracture. The remainder of the facial bones, skull base, IAC are intact. The sinuses and mastoid air cells are clear. Metallic artifact from a tongue ring is present. There are multiple cavities within the molars and premolars. IMPRESSION: Soft tissue swelling over the right orbit without fracture. MACRO: None I have reviewed the study and interpretation with the resident and agree with the findings. PROVIDER NOTE - ED Observed: 02/10/2018 Status: COMPLETED Source: [facility] TR[facility] 10:41 AM HOSPITALS REPOSITORY ED Care Transition: Chart Review: ED NOTES ED NOTES: I received signout from the last ED provider. He was awaiting clinically sober status and reevaluation. At around 10:30 AM the patient emerged from his room and was walking, talking clearly, it appeared to be clinically sober. He asked for food and drink which was provided. He was able to take liquids by mouth without difficulty. He denied suicidal or homicidal ideation and stated that he was ready for discharge. He was discharged in stable condition. CLINICAL IMPRESSION Diagnosis/Annotation: ED Dx Name:Acute alcohol abuse Code:F10.10 Name:Adverse effect of mouthwash Code:Z78.9 Dispostion: discharged ATTESTATION Attestation: I saw and evaluated the patient. I personally obtained the goodwin and critical portions of the history and physical exam or was physically present for goodwin and critical portions performed by the resident/fellow. I reviewed the resident/fellows documentation and discussed the patient with the resident/fellow. I agree with the resident/fellows medical decision making as documented in the resident/fellows note with the exception/addition of the following Comments/Additional Findings: As noted, we assumed care of this patient at shift turnover. After period of observation and in the setting of clinical sobriety, he convincingly incoherently denied any suicidal ideation, homicidal ideation, or audiovisual hallucination. He ambulated in the emergency department without any ataxia. His neurologic examination is normal. He has no clinical manifestations of an acute toxidrome. He tolerated oral intake without postprandial complication. CRITICAL CARE TIME Is this a critically ill patient: no Electronic Signatures: Mik Strong (Resident)) (Signed 10-Feb-2018 10:41) Authored: ED Care Transition Rubio Armstrong) (Signed 10-Feb-2018 11:49) Authored: ED Care Transition Co-Signer: ED Care Transition Last Updated: 10-Feb-2018 11:49 by Rubio Armstrong) CBC AND DIFFERENTIAL Collected: 02/10/2018 Status: F Source: DRIVER 2:19 AM HOSPITALS REPOSITORY TYPE CODE TESTS RESULT OUT OF REFERENCE UNITS RANGE LAB WBCR(LOINC 4.4 - 11.3 x10E9/L ) WBC 5.1 LAB NRBC(LOINC 0.0-0.0 /100 WBC ) NUCLEATED RBC 0.0 LAB RBCCT(LOIN 4.50 - 5.90 x10E12/L C) Low RBC 4.09 LAB HGB(LOINC) 13.5 - 17.5 g/dL Low HGB 13.0 LAB HCT(LOINC) 41.0 - 52.0 % Low HCT 38.2 LAB MCV(LOINC) 80 - 100 fL MCV 93 LAB MCHC2(LOIN 32.0 - 36.0 g/dL C) MCHC 34.0 LAB PLTCT(LOIN 150 - 450 x10E9/L C) PLT 222 LAB RDWCV(LOIN 11.5 - 14.5 % C) RDW-CV High 15.3 LAB NEUT(LOINC 40.0 - 80.0 % ) % NEUTROPHIL 50.0 LAB IG(LOINC) 0.0 - 0.9 % % AUTOMATED 0.2 IMMATURE GRAN Result Comment: Percent differential counts (%) should be interpreted in the context of the absolute cell counts (cells/L). LAB LYMPH(LOINC) 13.0 - 44.0 % % LYMPHOCYTE 40.2 LAB MONO(LOINC) 2.0 - 10.0 % % MONOCYTE 7.6 LAB EOS(LOINC) 0.0 - 6.0 % % EOSINOPHIL 0.8 LAB BASO(LOINC) 0.0 - 2.0 % % BASOPHIL 1.2 LAB #NEUT(LOINC) 1.20 - 7.70 x10E9/L NEUTROPHIL 2.55 LAB #LYMP(LOINC) 1.20 - 4.80 x10E9/L LYMPHOCYTE 2.05 LAB #MONO(LOINC) 0.10 - 1.00 x10E9/L MONOCYTE 0.39 LAB #EOS(LOINC) 0.00 - 0.70 x10E9/L EOSINOPHIL 0.04 LAB #BASO(LOINC) 0.00 - 0.10 x10E9/L BASOPHIL 0.06 Performed By: #### CBCDF #### [facility] [address] [place] [id number] COMPREHENSIVE PANEL Collected: 02/10/2018 Status: F Source: DRIVER 2:19 AM HOSPITALS REPOSITORY TYPE CODE TESTS RESULT OUT OF REFERENCE UNITS RANGE LAB GLU(LOINC) 74 - 99 mg/dL GLUCOSE 79 LAB SOD(LOINC) 136 - 145 mmol/L SODIUM 143 LAB K(LOINC) 3.5 - 5.3 mmol/L POTASSIUM 3.7 LAB CHLOR(LOIN 98 - 107 mmol/L C) CHLORIDE 106 LAB BIC(LOINC) 21 - 32 mmol/L BICARBONATE 25 LAB ANGAP(LOIN 10 - 20 mmol/L C) ANION GAP 16 LAB UREA(LOINC 6 - 23 mg/dL ) UREA NITROGEN 13 LAB CREA(LOINC 0.50 - 1.30 mg/dL ) CREATININE 0.75 LAB GFRFN(LOIN >60 mL/min/1.7 C) 3m2 GFR-NON AM. >60 LAB GFRAA(LOIN >60 mL/min/1.7 C) 3m2 GFR- AM. >60 Result Comment: CALCULATIONS OF ESTIMATED GFR ARE PERFORMED USING THE MDRD STUDY EQUATION FOR THE IDMS-TRACEABLE CREATININE METHODS. CLIN CHEM 2007;53:766-72 LAB CA(LOINC) 8.6 - 10.6 mg/dL CALCIUM Low 8.3 LAB ALB(LOINC) 3.4 - 5.0 g/dL ALBUMIN 4.0 LAB AP(LOINC) 33 - 120 U/L ALKALINE PHOSPHATASE 109 LAB TP(LOINC) 6.4 - 8.2 g/dL TOTAL PROTEIN Low 6.3 LAB AST(LOINC) 9 - 39 U/L AST 35 LAB TBILI(LOINC) 0.0 - 1.2 mg/dL BILIRUBIN,TOTAL 0.3 LAB ALT(LOINC) 10 - 52 U/L ALT 19 Result Comment: Patients treated with Sulfasalazine may generate falsely decreased results for ALT. Performed By: #### CMP #### [facility] [address] [place] [address] ACUTE TOXICOLOGY Collected: 02/10/2018 Status: F Source: DRIVER PANEL, BLOOD 2:19 AM HOSPITALS REPOSITORY Order Comment: CRIT ALC CALLED TO DORIAN BALLARD, 02/10/2018 02:57 TYPE CODE TESTS RESULT OUT OF RANGE REFERENCE UNITS LAB ACETA(KAREN 10.0 - 30.0 ug/mL NC) ACETAMINOPHEN Abnormal <10.0 LAB SALIC(KAREN 4 - 20 mg/dL NC) SALICYLATE Abnormal <3 LAB ALC(LOINC mg/dL ) ALCOHOL Abnormal 450 Result Comment: FOR MEDICAL USE ONLY. . REF VALUES <10 CRIT ALC CALLED TO DORIAN BALLARD, 02/10/2018 02:57 Performed By: #### EDEL #### [facility] [address] [place] [address] PROVIDER NOTE - ED Observed: 02/10/2018 Status: COMPLETED Source: UNIVERS[facility] V2 2:16 AM HOSPITALS REPOSITORY Provider Note - ED v2: Chart Review: ED NOTES ED NOTES: CC: suicidal ideation History limited by acute EtOH ingestion HPI: Mr. Doll is a 37 y/o with a PPH of EtOH abuse who presents to the ED BIB [facility] police for sleeping in a bed in the tower. Patient was noted to be drinking mouthwash by police and reported vague SI. Patient admits to drinking in the last hour and drinking multiple pints. Patient's mouthwash bottle had 100 mlL left and was 26.9% EtOH by volume. Poison control was called due to concern for mouthwash ingestion and recommended acute toxicology panel to rule out coingestion in the setting of suicidal ideations. Acute toxicology panel was negative and patient denied coingestion or recently trying to hurt himself. Symptoms were gradual in onset, exacerbated and alleviated by nothing. Past Medical History: Reviewed per records and any additional history is documented below: Past Surgical History: Reviewed per records and any additional history is documented below: Family History: Reviewed per records and any additional history is documented below: Social History: EtOH use, chewing tobacco, denies illicit drug use Medications: Reviewed in nursing notes, EMR, and discussed with patient Allergies: reviewed in EMR Review of Systems: A complete review of systems was performed and is otherwise negative except as noted in the HPI or additionally: Physical Exam: Vital signs reviewed in nursing triage note, EMR flow sheets, and at patient's bedside GEN: A&Ox3, no acute distress, appears comfortable. Conversational and appropriate. No confusion or gross mental status changes. EYES: PERRL, EOMI, non-injected sclera. ENT: Moist mucous membranes, no apparent injuries or lesions. Uvula midline. NECK: No JVD, no cervical LAD. CARDIO: Normal rate and regular rhythm. No murmurs, rubs, or gallops. 2+ equal pulses of the distal bilateral upper and lower extremities. PULM: Clear to auscultation bilaterally. No rales, rhonchi, or wheezes. Good symmetric chest expansion. GI: Soft, non-tender, non-distended. No rebound tenderness or guarding. No organomegaly appreciated. Bowel sounds present in all 4 quadrants. SKIN: Warm and dry, no rashes or lesions. MSK: ROM intact in all 4 extremities without contractures. No joint swelling, normal strength. EXT: No peripheral edema, contusions, or wounds. NEURO: Cranial nerves II-XII grossly intact. Sensation to light touch intact and equal bilaterally in upper and lower extremities. Symmetric 5/5 strength in upper and lower extremities. PSYCH: Appropriate mood and behavior, converses and responds appropriately during exam. All laboratory and imaging studies were independently reviewed by myself and additional commentary on imaging studies if different from the interpretation of Radiology is documented below: EKG: R Hospital course: Patient was BIB police after it was noted he was trespassing and he expressed SI in the setting of acute intoxication. Patient's blood EtOH level was 450 at 2:19. Patient was seen and evaluated by the resident and attending physician. Diagnosis: 1. acute EtOH intoxication 2. Critical care time: Disposition: HISTORY OF PRESENTING ILLNESS ZAINA is a 37 year old Male and was seen by me at 10-Feb-2018 01:39 for a chief complaint of suicidal thoughts. Triage Information: Most recent Vital Sign Value Date Temp (F): 96.6 02-10-2018 01:33 Temp (C): 35.9 02-10-2018 01:33 Heart Rate (beats/min): 116 02-10-2018 01:33 Respirations (breaths/min): 14 02-10-2018 01:33 SpO2 (%): 95 02-10-2018 01:33 BP Systolic (mm Hg): 134 02-10-2018 01:33 BP Diastolic (mm Hg): 82 02-10-2018 01:33 PAST MEDICAL HISTORY ATTESTATION: I have reviewed and confirmed nurse's/medic's notes for patient's medications, allergies, medical history, and surgical history CURRENT OR FORMER SUBSTANCE USE: YES: Cigarette/Tobacco, Alcohol and Street Drugs NO: e-Cigarette/Vaping ALLERGIES/INTOLERANCES: Allergy Allergen: morphine Type: Drug Reaction: Hives/Urticaria Allergen: Horse Type: Environment Reaction: Swelling/Edema Anaphylaxis Facial Swelling Allergen: opiates Type: Drug Category Reaction: Unknown Allergen: narcotic analgesics Type: Drug Category Reaction: Unknown HEALTH HISTORY: Medical History Name:Schizoaffective disorder Code:F25.9 Name:Alcohol addiction Code:F10.20 Name:Overdose of antipsychotic Code:T43.501A Name:Overdose of antidepressant Code:T43.201A Name:Alcohol dependence with uncomplicated withdrawal Code:F10.230 OUTPATIENT MEDICATIONS: Home Medications Review Status for Reconciliation: N/A Med Status: Patient Currently Takes Medications Drug Name: gabapentin 400 mg oral capsule Instructions: 2 cap(s) orally 3 times a day Drug Name: busPIRone 15 mg oral tablet Instructions: 1 tab(s) orally every 8 hours Drug Name: folic acid 1 mg oral tablet Instructions: 1 tab(s) orally once a day Drug Name: traZODone 100 mg oral tablet Instructions: 1 tab(s) orally once a day (at bedtime) PRN Drug Name: omeprazole 40 mg oral delayed release capsule Instructions: 1 cap(s) orally once a day Drug Name: thiamine 100 mg oral tablet Instructions: 1 tab(s) orally once a day Drug Name: Multiple Vitamins with Minerals oral tablet Instructions: 1 tab(s) orally once a day Drug Name: ziprasidone 60 mg oral capsule Instructions: 1 cap(s) orally 2 times a day Drug Name: diazePAM 2 mg oral tablet Instructions: 1 tab(s) orally every 12 hours for 1 day, then 0.5 tab orally every 12 hours, then 0.5 tab orally daily. then stop Drug Name: nicotine 21 mg/24 hr transdermal film, extended release Instructions: 1 patch transdermal every 24 hours Drug Name: Flagyl 500 mg oral tablet Instructions: 4 tab(s) orally once a day SIGNIFICANT EVENTS: Past Medical History Description:schizoaffective disorder Description:GERD Description:Hypertension (HTN) Description:EtOH abuse Description:Seizure Disorder Additional Notes:from alcohol withdraw RESULTS/VITAL SIGNS RESULTS: Recent Lab Results: I have reviewed these laboratory results: Acute Toxicology Panel, Blood 10-Feb-2018 02:19:00 ResultValue Lab Comment: CRIT ALC CALLED TO DORIAN BALLARD 02/10/2018 02:57 Acetaminophen Level, Serum <10.0 A Acetylsalicylic Acid Level, Serum <3 A Ethanol Level 450 AA Complete Blood Count + Differential 10-Feb-2018 02:19:00 ResultValue White Blood Cell Count 5.1 Nucleated Erythrocyte Count 0.0 Red Blood Cell Count 4.09 L HGB 13.0 L HCT 38.2 L MCV 93 MCHC 34.0 PLT 222 RDW-CV 15.3 H Neutrophil % 50.0 Immature Granulocytes % 0.2 Lymphocyte % 40.2 Monocyte % 7.6 Eosinophil % 0.8 Basophil % 1.2 Neutrophil Count 2.55 Lymphocyte Count 2.05 Monocyte Count 0.39 Eosinophil Count 0.04 Basophil Count 0.06 Comprehensive Metabolic Panel 10-Feb-2018 02:19:00 ResultValue Glucose, Serum 79 NA 143 K 3.7 CL 106 Bicarbonate, Serum 25 Anion Gap, Serum 16 BUN 13 CREAT 0.75 GFR-Non >60 GFR- >60 Calcium, Serum 8.3 L ALB 4.0 ALKP 109 T Pro 6.3 L T Bili 0.3 Alanine Aminotransferase, Serum 19 Aspartate Transaminase, Serum 35 Glucose_POCT 10-Feb-2018 02:11:00 ResultValue Glucose-POCT 76 VITAL SIGNS: T PRBP SpO2O2(LPM) %FiO2 Method 10-Feb-2018 02:05:[id number] 96 room air, no respiratory support 10-Feb-2018 01:33:[id number] 95 room air, no respiratory support HANDOFF Transferring Patient to Incoming Team: yes Signed Out to Incoming Provider: incoming ED team CLINICAL IMPRESSION Diagnosis/Annotation: ED Dx Name:Acute alcohol abuse Code:F10.10 Name:Adverse effect of mouthwash Code:Z78.9 ATTESTATION Attestation: I saw and evaluated the patient. I personally obtained the goodwin and critical portions of the history and physical exam or was physically present for goodwin and critical portions performed by the resident/fellow. I reviewed the resident/fellows documentation and discussed the patient with the resident/fellow. I agree with the resident/fellows medical decision making as documented in the residents note CRITICAL CARE TIME Is this a critically ill patient: no Electronic Signatures: Dorian Lozano (Resident)) (Signed 10-Feb-2018 07:22) Authored: Provider Note - ED v2 Yocasta Adler) (Signed 13-Feb-2018 10:50) Authored: Provider Note - ED v2 Co-Signer: Provider Note - ED v2 Last Updated: 13-Feb-2018 10:50 by Yocasta Adler) GLUCOSE-POCT Collected: 02/10/2018 Status: F Source: DRIVER 2:11 AM HOSPITALS REPOSITORY TYPE CODE TESTS RESULT OUT OF RANGE REFERENCE UNITS LAB GLUP(LOINC) 74 - 99 mg/dL 76 GLUCOSE-POCT Performed By: #### GLUPO #### [facility] [address] [place] [address] TRIAGE - ED Observed: 02/10/2018 Status: UNK Source: DRIVER 1:33 AM HOSPITALS REPOSITORY Pain: Pain Rating (0-10): Rest0 Chart Review: CHIEF COMPLAINT ZAINA DOLL is a Male patient with a chief complaint of suicidal thoughts. Onset of the Complaint: 10-Feb-2018 Triage Date/Time: 10-Feb-2018 01:33 Pain Rating (0-10): Rest: 0 Vital Signs: Temperature: 96.6F ( 35.9C) taken temporal Blood Pressure: 134/82 Mean: Heart Rate: 116 Respiratory Rate: 14 Pulse Oximetry: 95% on room air, no respiratory support. Height: 6 feet 3.00 inches. 190.5 CM Weight: 200.0 pounds. Calculated 90.7 kg. Calculated BMI (kg/m2): 24.992 Calculated BSA (m2) 2.19 Cough lasting greater than 3 weeks: no Patient immunocompromised related to: N/A Travel outside of [place]: no Allergies: yes Patient has suicidal thoughts: yes Patient has homicidal thoughts: no GEOVANNA: 2 Symptoms Are POSITIVE For: depression and suicidal thoughts. Symptoms Are Negative For: agitated, anorexia, confusion, fatigue, hallucinations and withdrawn. PAIN Pain Scale Used: ALLI Past Medical History: Past Medical History Reviewedyes Electronic Signatures: David Che (STAFF N) (Signed 10-Feb-2018 01:34) Authored: Triage, Past Medical History Last Updated: 10-Feb-2018 01:34 by David Che (STAFF N) ED PHYSICIAN REPORT Observed: 02/09/2018 Status: F Source: [facility] 9:14 [facility] REPOSITORY Patient: ZAINA DOLL Age: 37 years Sex: Male : 1980 Associated Diagnoses: Acute alcohol intoxication; Suicidal ideation; Depression Author: DAVID PASCUAL MD Basic Information Time seen: Time Seen: DAVID PASCUAL MD / 02/08/2018 10:47 . History source: Patient. Arrival mode: Private vehicle. History limitation: Uncooperative. Additional information: Patient's physician(s): PCP: Dr. Rama Ramos. History of Present Illness The patient presents with alcohol intoxication. The onset was just prior to arrival. The course/duration of symptoms is constant. The Reason for ingestion is suicidal. The amount/type ingested is un known. Risk factors consist of alcohol abuse. Therapy today: see nurses notes. 37 y/o male [facility] for ETOH intoxication and suicidal ideation. He denies a plan for suicide. He notes past attempt to hurt himself for which he was admitted. He n otes h/o tachycardia and alcoholism. He denies drug use. Patient is uncooperative when asked questions. No other concerns were voiced at this time. Review of Systems Additional review of systems information: Unable to obtain due to: Uncooperative patient. Health Status Allergies: Allergic Reactions (All) Severity Not Documented Morphine- No reactions were documented.. Medications: (Selected) Inpatient Medications Ordered Normal Saline Bolus (0.9%NaCl): 1,000 mL, 999 mL/hr, Fluid Bolus IVPB, ONCE Prescriptions Prescribed Multiple Vitamins oral tablet: 1 tabs, ORAL, DAILY, 30 tabs, 0 Refill(s) busPIRone 15 mg oral tablet: 15 mg = 1 tabs, ORAL, TID, 90 tabs, 0 Refill(s) folic acid 1 mg oral tablet: 1 mg = 1 tabs, ORAL, DAILY, 30 tabs, 2 Refill(s) gabapentin 800 mg oral tablet: 800 mg = 1 tabs, ORAL, TID, 90 tabs, 0 Refill(s) naltrexone 50 mg oral tablet: 50 mg = 1 tabs, ORAL, DAILY, 30 tabs, 2 Refill(s) nicotine 21 mg/24 hr transdermal film, extended release: 21 mg = 24 hr, Transderm, DAILY, PRN: Urge to Smoke, 30 patches, 0 Refill(s) omeprazole 40 mg oral delayed release capsule: 40 mg = 1 caps, ORAL, BID, 60 caps, 0 Refill(s) thiamine 100 mg oral tablet: 100 mg = 1 tabs, ORAL, TID, 90 tabs, 2 Refill(s) traZODone 100 mg oral tablet: 100 mg = 1 tabs, ORAL, QHS, 30 tabs, 0 Refill(s) ziprasidone 60 mg oral capsule: 60 mg = 1 caps, ORAL, BID, 60 caps, 0 Refill(s), per nurse's notes. Past Medical/ Family/ Social History Surgical history: endoscopy., Reviewed as documented in chart. Family history: Addiction to drug.... Father , Reviewed as documented in chart. Social history: Alcohol use: Regularly, Drug use: Denies, Family/social situation: Homeless. Problem list: Active Problems (9) ADHD (attention deficit hyperactivity disorder) At risk for falls Bipolar 1 disorder History of posttraumatic stress disorder (PTSD) Manic affective disorder, recurrent episode, in full remission OCD (obsessive compulsive disorder) Schizo affective schizophrenia Suicidal ideation Tobacco abuse , per nurse's notes. Physical Examination Vital Signs Vital Signs 02/08/2018 10:27 EST Temperature Oral 37.3 degC NORMAL Peripheral Pulse Rate 90 bpm NORMAL Respiratory Rate 16 br/min NORMAL Systolic Blood Pressure 135 mmHg NORMAL Diastolic Blood Pressure 88 mmHg NORMAL SpO2 96 % NORMAL Oxygen Therapy Room air Height/Length Dosing 182.88 cm Weight Dosing 90.3 kg Body Mass Index Dosing 27 . Per nurse's notes. General: Alert, well hydrated, well nourished. Skin: Warm, dry, no rash. Head: Normocephalic, atraumatic. Neck: Supple, trachea midline. Eye: Pupils are equal, round and reactive to light, extraocular movements are intact. Ears, nose, mouth and throat: Oral mucosa moist. Cardiovascular: Regular rate and rhythm, No murmur, No edema, Tachycardia, no gallops, no calf pain, No cardiac rub, Respiratory: Lungs are clear to auscultation, respirations are non-labored, breath sounds are equal. Gastrointestinal: Soft, Nontender, Non distended, Normal bowel sounds. Back: Normal range of motion. Musculoskeletal: Normal ROM, normal strength. Lymphatics: No lymphadenopathy. Psychiatric: Cooperative, Mood and affect: Anxious, depressed, flat. Neurological Alert and oriented to person, place, time, and situation, No focal neurological deficit observed, normal sensory observed, normal motor observed, normal speech observed. Medical Decision Making Documents reviewed: Emergency department nurses' notes, flowsheet, emergency department records, prior records. Electrocardiogram: Time 02/08/2018 10:45:00, rate 104, The Rhythm is sinus tachycardia. , Borderline EKG. Results review: Lab results : Laboratory 02/08/2018 12:50 EST Estimated Creatinine Clearance 181.43 mL/min 02/08/2018 11:30 EST BUN 10 mg/dL NORMAL Na 140 mmol/L NORMAL K 3.9 mmol/L NORMAL Chloride 103 mmol/L NORMAL CO2, venous 29.3 mmol/L NORMAL Glucose 77 mg/dL NORMAL Creatinine 0.6 mg/dL LOW Total Protein 7.6 g/dL NORMAL Calcium 8.2 mg/dL LOW Bilirubin, Total 0.21 mg/dL NORMAL Alk Phos 133 unit/L HI GOT 30 unit/L NORMAL GPT 24 unit/L NORMAL BUN/Creat Ratio 15.6 NA Calculated Osmolality 277 mOsm/kg NORMAL Globulin 3.9 g/dL NA A/G Ratio 0.9 NA Free T4 0.93 ng/dL NORMAL TSH 0.85 uIU/ml NORMAL ALB 3.7 g/dL NORMAL Date Last Dose UNK Date Last Dose UNK Time Last Dose UNK Time Last Dose UNK Acetaminophen <2.0 ug/ml LOW Salicylate 2.4 mg/dL LOW Alcohol, Serum 370 mg/dL CRIT Glomerular Filtration Rate >60 mL/min/1.73m? NA GFR AA >60 NA WBC 4.0 x10 RBC 4.37 x10 HGB 14.2 g/dL NORMAL HCT 41.7 % NORMAL MCV 95.6 fL NORMAL MCH 32.4 pg NORMAL MCHC 33.9 g/dL NORMAL RDW 15.2 HI Platelet 260 x1000 NORMAL MPV 7.3 fL LOW Nucleated RBC 0 /100WBC NA Lymph % 33.4 % NA [place] % 10.6 % NA Neutrophil % 51.0 % NA Eosin % 1.8 % NA Basos % 3.2 % NA Lymph Count 1.35 x1000 NORMAL [place] Count 0.43 x1000 NORMAL Neutrophil Count (ANC) 2.06 x1000 NORMAL Eos Count 0.08 x1000 NORMAL Baso Count 0.13 x1000 NORMAL 02/08/2018 11:25 EST Color, U Yellow Appearance, U Clear Specific [place], U 1.015 NORMAL pH, U 5.0 NORMAL Protein, U Negative Glucose Qual, U Negative Ketones, U Negative Bilirubin, U Negative Blood, U Negative Urobilinogen Qual, U <2.0 mg/dl Nitrite, U Negative Leukocyte Esterase, U Negative Amphetamines, U Negative Barbituates, U Negative PCP, U Negative Benzodiazepines, U Negative Cocaine, U Negative THC, U Positive Opiates, U Negative Ecstasy, U Negative . Reexamination/ Reevaluation Course: improving. Assessment: exam improved. Impression and Plan Diagnosis Acute alcohol intoxication ([id number] F10.929, Working, Medical) Suicidal ideation (CAG41-AI R45.851, Referring, Emergency medicine, Medical) Depression (YXL36-US F32.9, Referring, Emergency medicine, Medical) Plan Condition: Improved, Stable. Disposition: Patient care transitioned to: Time: 02/08/2018 16:00:00, ROMY FERRER MD Counseled: Patient, Regarding diagnosis, Regarding diagnostic results, Regarding treatment plan, Patient indicated understanding of instructions. Notes: I, Felicia Kent, scribing for and in the presence of Dr. David Pascual MD. Scribe Signature; Keren Jang, 02/08/2018 11:16 , I personally performed the services described in the doc umentation, reviewed and edited the documentation which was dictated to the scribe in my presence, and it accurately records my words and actions.. DAVID PASCUAL MD on 02/09/2018 09:14 ED PHYSICIAN REPORT Observed: 02/08/2018 Status: F Source: [facility] 10:17 PM [facility] RE[facility] Patient: ZAINA DOLL Age: 37 years Sex: Male : 1980 Associated Diagnoses: Acute alcohol intoxication Author: ROMY FERRER MD Basic Information Addendum: Time of addendum:: 02/08/2018 22:14:00 , Assumed care from: DAVID PASCUAL MD, Pertinent history: Follow up on lab results, Patient awaiting consult. Reexamination/ Reevaluation Patient with history of daily alcohol use. Presents alcohol intoxication and suicidal ideation. Upon signout awaiting repeat alcohol level and Rhome evaluation. Repeat alcohol 110. Patient evaluat ed by Rhome. He currently denies being suicidal or homicidal. I did speak with him as well. He is awake alert oriented cooperative. Again denies being suicidal or homicidal. He is discharged to [facility] as directed. Return for any problems or concerns Impression and Plan Diagnosis Acute alcohol intoxication (REZ04-PY F10.929, Working, Medical) Plan Condition: Improved. Disposition: Discharged: to home. Counseled: Patient. ROMY FERRER MD on 02/08/2018 22:17 ED PROGRESS NOTE Observed: 02/08/2018 Status: C Source: [facility] 9:56 PM [facility] REPOS[facility] pt brought to room via wc due to him reporting he is intoxicated and staggering. pt reports he is suicidal, denies a plan. reports he has been drinking all day, a lot denies illegal drugs, but reports he does smoke marijuana. pt is alert and oriented. cooperative with cares. all clothing removed and placed in locker. security at bedside to wand pt. no weapons found at this time. updated pt on plan of care and reason for wait with verbal understanding 1115 sitter at bedside with pt. 1215 pt remains calm and cooperative. no requests at this time. 1245 no changes. pt sleeping. alcohol level of 370 reported to . assumed care of pt resting in bed lunch brought in warm pink dry resp even and unlabored updated on plan of care safety maintained pt refuses iv up indepently warm pink dry resp even and unlabored safety maintained bettina medic sitter remains at bedside hr 122 pt verbalizes understanding of needfor iv and fluids iv ns 1 l bolus as ordered pt getting shaky will discuss with dr galarza maintained case discussed with dr madden order received pt okay to be d/c per Dr Iglesias. pt asked for gema ticket, informed we do not give those out. pt ambulatory and stable upon d/c to waiting area. ALCOHOL SERUM Collected: 02/08/2018 Status: F Source: [facility] 9:13 PM [facility] REPOSITORY TYPE CODE TESTS RESULT OUT OF RANGE REFERENCE UNITS LAB [id number] mg/dL Normal 110 Alcohol, Serum Result Comment: Note: Alcohol values performed at [facility] are performed on Serum and reported in mg/dl, which is different then the state reporting units of g/dl which is performed on whole blood. Result reporting units are based on test methodology and are not interchangable. Performed By: #### [id number] #### [facility] [address] [place] [address] Disk Grinder: MD BRADY Potts Collected: 02/08/2018 Status: F Source: [facility] 12:50 PM [facility] REPOSITORY TYPE CODE TESTS RESULT OUT OF RANGE REFERENCE UNITS LAB [id number] g/dL Normal Globulin 3.9 LAB [id number] 8.5-10.5 mg/dL Low Calcium 8.2 LAB 8580146 0.20-1.00 mg/dL Normal Bilirubin, 0.21 Total LAB [id number] 15-37 unit/L Normal GOT 30 Result Comment: Venipuncture should occur prior to sulfasalazine and/or sulfapyridine administration due to the potential for falsely depressed results. Baseline assay values before administration of sulfasalazine and sulfapyridine therapy would not be affected. LAB 7678 10-20 mg/dL Normal BUN 10 LAB [id number] 6.0-8.5 g/dL Normal Total Protein 7.6 LAB 4534973 135-145 mmol/L Normal Na 140 LAB 7501 3.4-5.0 g/dL Normal ALB 3.7 LAB 3478887 3.5-5.1 mmol/L Normal K 3.9 LAB 0817076 72-100 mg/dL Normal Glucose 77 Result Comment: Venipuncture should occur prior to sulfasalazine administration due to the potential for falsely depressed results. Venipuncture should occur prior to sulfapyridine administration due t o the potential falsely elevated results. Baseline assay values before administration of sulfasalazine and sulfapyridine therapy would not be affected. LAB 8143579 16-61 unit/L Normal GPT 24 Result Comment: Venipuncture should occur prior to sulfasalazine and/or sulfapyridine administration due to the potential for falsely depressed results. Baseline assay values before administration of sulfasalazine and sulfapyridine therapy would not be affected. LAB 7193180 100-109 mmol/L Chloride Normal 103 LAB [id number] 45-117 unit/L High Alk Phos 133 LAB [id number] 21.0-32.0 mmol/L CO2, Normal venous 29.3 LAB 6094071 0.7-1.3 mg/dL Low Creatinine 0.6 LAB 999082140(KAREN NC) GFR AA Normal >60 Result Comment: GFR Calc Medical judgement is necessary to interpret GFR. The calculated GFR may not accurately reflect renal status in patients >70 years, women, acutely ill hospitalized patients and patients with acute renal failure or known renal disease. The MDRD GFR formula is valid only for adults greater than 18 years of age. Note: Creatinine clearance (not GFR) should be used for drug dosing. LAB 4963003(LOINC) Normal A/G Ratio 0.9 LAB 5574598 Normal BUN/Creat Ratio 15.6 LAB [id number] mL/min/ Normal 1.73m? Glomerular Filtration Rate >60 Result Comment: Non GFR Calc Medical judgement is necessary to interpret GFR. The calculated GFR may not accurately reflect renal status in patients >70 years, women, acutely ill hospitalized patients and patients with acute renal failure or known renal disease. The MDRD GFR formula is valid only for adults greater than 18 years of age. Note: Creatinine clearance (not GFR) should be used for drug dosing. LAB [id number] 275-295 mOsm/kg Normal Calculated Osmolality 277 Performed By: #### [id number], [id number], [id number] #### [facility] [address] [place], [place] [id number] Disk Grinder: Brian Jonas MD THY GP Collected: 02/08/2018 Status: F Source: [facility] 12:50 PM [facility] REPOSITORY TYPE CODE TESTS RESULT OUT OF RANGE REFERENCE UNITS LAB [id number] 0.76-1.46 ng/dL Normal Free 0.93 T4 Result Comment: High levels of serum biotin may interfere with this test. LAB 8878 0.36-3.74 uIU/ml Normal 0.85 TSH Result Comment: High levels of serum biotin may interfere with this test. Performed By: #### [id number], [id number], [id number], [id number] #### [facility] [address] [place] [id number] Disk Grinder: Brian Jonas MD ALCOHOL SERUM Collected: 02/08/2018 Status: F Source: [facility] 12:49 PM [facility] REPOSITORY TYPE CODE TESTS RESULT OUT OF RANGE REFERENCE UNITS LAB 8837670 mg/dL Abnormal alert 370 Alcohol, Serum Result Comment: Critical Result(s) called at: 12:50:00 on 02/08/2018 by: Heather Valdes rechecked, RBR to: RAJNI in ER Note: Alcohol values performed at [facility] are performed on Serum and reported in mg/dl, which is different then the state reporting units of g/dl which is performed on whole blood. Result reporting units are based on test methodology and are not interchangable. Performed By: #### [id number] #### [facility] [address] [place] [id number] Disk Grinder: Brian Jonas MD SALICYLATE LEVEL Collected: 02/08/2018 Status: P Source: [facility] 12:39 PM [facility] REPOSITORY TYPE CODE TESTS RESULT OUT OF REFERENCE UNITS RANGE LAB [id number] 2.8-20.0 mg/dL Low Salicylate 2.4 Performed By: #### [id number] #### [facility] [address] [place] [id number] Disk Grinder: Brian Jonas MD U DOA Collected: 02/08/2018 Status: F Source: [facility] 12:33 PM [facility] REPOSITORY TYPE CODE TESTS RESULT OUT OF RANGE REFERENCE UNITS LAB 0731773 Normal Negative Cocaine, U LAB 40636561 Normal Negative Ecstasy, U LAB 9547424 Normal Negative Barbituates , U LAB 7994629 Normal Negative Opiates, U LAB 2199181 Normal THC, Positive U LAB 2399215 Normal Negative Amphetamine s, U Result Comment: Urine for Drugs of Abuse tests (U Amphetamines, U Barbituates, U PCP, U Benzodiazepines, U Cocaine, U THC, U Opiates & U Ecstasy)provide preliminary test results only. A more specif ic alternate method must be used in order to obtain a confirmed analytical result. Gas chromatography/mass spectrometry is the preferred confirmatory method. Clinical consideration and professional ju dgment should be applied to any drug of abuse test result, particularly when preliminary positive results are used. Urine for Drugs of Abuse Tiller Levels: Barbiturate 200 ng/ml PCP 25 ng/ml Cocaine 300 ng/ml Opiates 2000 ng/ml Amphetamines 1000 ng/ml Benzodiazepines 200 ng/ml THC 50 ng/ml EXTC 500 ng/ml LAB [id number] Benzodiazepines, U Normal Negative LAB 4009420 PCP, U Normal Negative Performed By: #### [id number] #### [facility] [address] [place] [address] Disk Grinder: Brian Jonas MD UA Collected: 02/08/2018 Status: F Source: [facility] 12:15 PM [facility] REPOSITORY TYPE CODE TESTS RESULT OUT OF REFERENCE UNITS RANGE LAB 1946119 4.5-8.0 pH, U Normal 5.0 LAB 4438209 Negative Nitrite, U Normal Negative LAB 7625350 Appearance, Normal U Clear LAB 4942349 Negative Leukocyte Normal Esterase, U Negative LAB 3992130 Color, U Normal Yellow LAB 3750273 Negative Blood, U Normal Negative LAB 4283419 Negative Protein, U Normal Negative LAB 8606142 Negative Glucose Normal Qual, U Negative LAB 2352671 Negative Bilirubin, Normal U Negative LAB 1620245 Negative Ketones, U Normal Negative LAB 4280700 1.001-1.035 Specific Normal [place], U 1.015 LAB 7955706 <2.0 mg/dl Normal Urobilinogen <2.0 mg/dl Qual, U Result Comment: EU/dl and mg/dl are equivalent units. LAB 9561430 Normal Not U MICRO Indicated Performed By: #### [id number] #### [facility] [address] [place], [place] [id number] Disk Grinder: Brian Jonas MD AUTO DIFF Collected: 02/08/2018 Status: F Source: [facility] 12:12 PM [facility] REPOSITORY TYPE CODE TESTS RESULT OUT OF REFERENCE UNITS RANGE LAB 8729494 % Basos % Normal 3.2 LAB 1312863 1.20-4.80 x1000 Lymph Normal Count 1.35 LAB 5541908 % [place] % Normal 10.6 LAB 9477538 % Normal Neutrophil % 51.0 LAB 9749393 0.00-0.20 x1000 Baso Normal Count 0.13 LAB 9578342 0.10-1.00 x1000 [place] Normal Count 0.43 LAB 5437618 % Eosin % Normal 1.8 LAB 8202172 1.40-8.80 x1000 Normal Neutrophil Count 2.06 (ANC) LAB 0194145 % Lymph % Normal 33.4 LAB 6708294 0.00-0.50 x1000 Eos Normal Count 0.08 Performed By: #### [id number], [id number] #### [facility] [address] [place], [place] [id number] Disk Grinder: Brian Jonas MD HEMO Collected: 02/08/2018 Status: F Source: [facility] 12:12 PM [facility] REPOSITORY TYPE CODE TESTS RESULT OUT OF REFERENCE UNITS RANGE LAB 60562593 /100WBC Normal Nucleated RBC 0 LAB 8129 41.0-52.0 % HCT Normal 41.7 LAB 8611 4.70-6.10 x10 Low RBC 4.37 Result Comment: Note: RBC morphology is normal unless otherwise stated. Evaluation performed only if differential is requested. LAB 1966534 150-450 x1000 Normal Platelet 260 LAB [id number](LOINC) Instr Normal WBC 4.0 LAB 8314 32.0-37.0 g/dL MCHC Normal 33.9 LAB 8315 80.0-100.0 fL MCV Normal 95.6 LAB 8153 13.5-17.5 g/dL HGB Normal 14.2 LAB 8340 7.4-10.4 fL Low MPV 7.3 LAB 8986 4.5-11.0 x10 Low WBC 4.0 LAB 8618 11.5-14.5 High RDW 15.2 LAB 8313 27.0-34.0 pg MCH Normal 32.4 LAB 8204964(LOINC) DIFF? Normal No Performed By: #### [id number], [id number] #### [facility] [address] [place], [place] [id number] Disk Grinder: Brian Jonas MD PROVIDER NOTE - ED Observed: 02/07/2018 Status: COMPLETED Source: [facility]IT[facility] Provider Note - ED v2: Chart Review: ED NOTES ED NOTES: HPI: Mr. Doll is a 37 yo male who presents to the ED with intoxication. He states that he has been drinking all morning and told his carmelo that he was suicidal so he was dropped off at the hospital. The patient states that he does not feel suicidal now and was not really suicidal then. He is also complaining of continued dysuria after he was treated with STDs. Denies headache, falls, fevers, chills, chest pain, SOB, abdominal pain, nausea, vomiting, testicular pain/swelling, penile discharge. PMH: alcohol abuse Per EMR, schizoaffective disorder Social Hx: + tobacco, frequent ETOH, denies drug use Family Hx: Not pertinent to chief complaint Meds: None currently Allergies: Narcotics ROS: Review of systems otherwise negative. Physical Exam: General: NAD. Awake and alert. Lying in bed. Smells of alcohol, intoxicated Head: normocephalic, atraumatic Eyes: PERRL, EOMI grossly, sclera anicteric ENT: MMM, no pharyngeal exudate or erythema, uvula midline. Neck: supple, no stiffness. Cardiovascular: Tachycardic, normal S1/S2. No murmurs, rubs, or gallops Pulmonary: Good inspiratory effort. CTAB no wheezes/rales/rhonchi Abdomen: Soft, non-tender, non-distended. No rebound or guarding : See Dr. Toussaint's note Extremities: Warm, no lower extremity edema, 2+ peripheral pulses. Neuro: alert and oriented. No focal deficits Psych: Normal affect, no psychomotor agitation. Good eye contact, no signs of internal stimulation Labs/Imaging: EKG: Not performed Imaging/Labs were significant for: Not performed Hospital Course/Medical Decision Making: The patient was evaluated and vitals were obtained on presentation to the ED. The patient presented to the ED for alcohol intoxication. He was well appearing and mildly tachycardic but otherwise hemodynamically stable. He was placed in a safe room and his belongings were secured. Elopement precautions were in place until the patient was clinically sober. He adamantly denied suicidal ideation to me twice and to Dr. Toussaint. He also denied hallucinations, HI. He patient had a positive gonorrhea culture that he was informed of. Once he was sober Dr. Toussaint examined him and his exam was not concerning for epididymitis or orchitis. Because he was still having symptoms, he was given an additional dose of ceftriaxone 250 mg IM. The patient was ambulating without difficulty, speaking clearly. He was clinically sober. He denied SI. The patient was hemodynamically stable while in the ED. They were given strict return precautions including abdominal pain, fever, headache, alcohol withdrawal and follow-up instructions. The patient was discharged home in stable condition. A detailed discussion with the patient occurred regarding the results and diagnosis from todays visit, symptoms to return immediately to the ED for, and the importance of following-up with their primary care doctor after discharge. The plan was discussed with the patient and the patients questions were answered. The patient was staffed with Dr. Toussaint who also evaluated the patient. Diagnosis: 1. Alcohol intoxication 2. Gonorrhea María Delgado PGY3 Emergency Medicine HISTORY OF PRESENTING ILLNESS ZAINA is a 37 year old Male and was seen by me at 07-Feb-2018 10:47 for a chief complaint of intoxication . Other complaints include: Also reports penis got burned(1). Triage Information: Most recent Vital Sign Value Date Temp (F): 96.8 02-07-2018 10:41 Temp (C): 36 02-07-2018 10:41 Heart Rate (beats/min): 117 02-07-2018 10:41 Respirations (breaths/min): 18 02-07-2018 10:41 SpO2 (%): 97 02-07-2018 10:41 BP Systolic (mm Hg): 140 02-07-2018 10:41 BP Diastolic (mm Hg): 87 02-07-2018 10:41 PAST MEDICAL HISTORY ATTESTATION: I have reviewed and confirmed nurse's/medic's notes for patient's medications, allergies, medical history, and surgical history ALLERGIES/INTOLERANCES: Allergy Allergen: morphine Type: Drug Reaction: Hives/Urticaria Allergen: Horse Type: Environment Reaction: Swelling/Edema Anaphylaxis Facial Swelling Allergen: opiates Type: Drug Category Reaction: Unknown Allergen: narcotic analgesics Type: Drug Category Reaction: Unknown HEALTH HISTORY: Medical History Name:Schizoaffective disorder Code:F25.9 Name:Alcohol addiction Code:F10.20 Name:Overdose of antipsychotic Code:T43.501A Name:Overdose of antidepressant Code:T43.201A Name:Alcohol dependence with uncomplicated withdrawal Code:F10.230 OUTPATIENT MEDICATIONS: Home Medications Review Status for Reconciliation: N/A Med Status: Patient Currently Takes Medications Drug Name: gabapentin 400 mg oral capsule Instructions: 2 cap(s) orally 3 times a day Drug Name: busPIRone 15 mg oral tablet Instructions: 1 tab(s) orally every 8 hours Drug Name: folic acid 1 mg oral tablet Instructions: 1 tab(s) orally once a day Drug Name: traZODone 100 mg oral tablet Instructions: 1 tab(s) orally once a day (at bedtime) PRN Drug Name: omeprazole 40 mg oral delayed release capsule Instructions: 1 cap(s) orally once a day Drug Name: thiamine 100 mg oral tablet Instructions: 1 tab(s) orally once a day Drug Name: Multiple Vitamins with Minerals oral tablet Instructions: 1 tab(s) orally once a day Drug Name: ziprasidone 60 mg oral capsule Instructions: 1 cap(s) orally 2 times a day Drug Name: diazePAM 2 mg oral tablet Instructions: 1 tab(s) orally every 12 hours for 1 day, then 0.5 tab orally every 12 hours, then 0.5 tab orally daily. then stop Drug Name: nicotine 21 mg/24 hr transdermal film, extended release Instructions: 1 patch transdermal every 24 hours Drug Name: Flagyl 500 mg oral tablet Instructions: 4 tab(s) orally once a day SIGNIFICANT EVENTS: Past Medical History Description:schizoaffective disorder Description:GERD Description:Hypertension (HTN) Description:EtOH abuse Description:Seizure Disorder Additional Notes:from alcohol withdraw CLINICAL IMPRESSION Diagnosis/Annotation: ED Dx Name:Alcohol intoxication Code:F10.929 Name:Gonorrhea in male Code:A54.9 Dispostion: discharged ATTESTATION Attestation: I saw and evaluated the patient. I personally obtained the goodwin and critical portions of the history and physical exam or was physically present for goodwin and critical portions performed by the resident/fellow. I reviewed the resident/fellows documentation and discussed the patient with the resident/fellow. I agree with the resident/fellows medical decision making as documented in the resident/fellows note with the exception/addition of the following Comments/Additional Findings: This patient was seen by the resident physician. I have seen and examined the patient, agree with the workup, evaluation, management and diagnosis. The care plan has been discussed and I concur. My assessment reveals 37-year-old male with history of depression, alcohol abuse presents emergency department today with complaint of penile burning. Patient was recently seen in the emergency department a few days ago and diagnosed with gonorrhea. He received appropriate treatment at that time. He states he still has symptoms including burning in the urethra, and discharge. Patient is brought in by EMS and because he told his friend that he was having suicidal thoughts. Upon presentation, the patient is intoxicated, but awake and alert and answering questions. There is no signs of trauma. Patient is denying suicidal ideation at this time. He states that he has depression and has had suicidal thoughts in the past, but no longer feels this way. On exam, the patient has no evidence of trauma, cardiac/abdomen/pulmonary exam are all unremarkable. exam exhibits no evidence of rash, small amount of penile discharge, no tenderness to palpation of the bilateral testes, no scrotal edema, no erythema or swelling. Patient was treated for gonorrhea with ceftriaxone. He is observed in the emergency department and allowed to metabolize his alcohol. He was reevaluated and was denying any further suicidal ideation, able to ambulate without difficulty. He is clinically sober and fit for discharge. Javier Toussaint MD CRITICAL CARE TIME Is this a critically ill patient: no Electronic Signatures: María Delgado (Resident)) (Signed 07-Feb-2018 17:17) Authored: Provider Note - ED v2 Javier Toussaint ( (Fellow)) (Signed 08-Feb-2018 07:08) Authored: Provider Note - ED v2 Co-Signer: Provider Note - ED v2 Last Updated: 08-Feb-2018 07:08 by Javier Toussaint ( (Fellow)) References: 1. Data Referenced From Triage - ED 02/07/2018 10:41 AM CLINICAL EVENT NOTE-+ Observed: 02/07/2018 Status: UNK Source: DRIVER GC/-CT CX 02/04/18 10:49 AM HOSPITALS REPOSITORY Event: Topic: + GC/-CT cx 02/04/18 Details: Pt treated with ceftriaxone which is the appropriate treatment for GC and they were given instructions and to f/u and return if worse. The pt. has returned to the ED today and is presently being evaluated in A [facility]. I called the resident , María Delgado MD who is caring for this patient in the ED and she will inform him of the + GC and give him instructions. Electronic Signatures: Fiona Miller (RN) (Signed 07-Feb-2018 10:51) Authored: Event Last Updated: 07-Feb-2018 10:51 by Fiona Mliler (GARY) SYPHILIS IGG Collected: 02/04/2018 Status: F Source: DRIVER 1:51 PM HOSPITALS REPOSITORY TYPE CODE TESTS RESULT OUT OF REFERENCE UNITS RANGE LAB SYPHG(LOIN NONREACTIVE C) SYPHILIS IGG NON REACTIVE Result Comment: Patients receiving more than 5 mg/day of biotin may have interference in test results. A sample should be taken no sooner than eight hours after previous dose. Contact [phone] for additional information. LAB SOURCE(LOINC) Lab Specimen Source Performed By: #### SYPH #### [facility] [id number] [place] [address] TRICHOMONAS,NUCLEIC ACID Collected: Status: F Source: UNIVERSITY DETECTION 02/04/2018 1:50 PM HOSPITALS REPOSITORY TYPE CODE TESTS RESULT OUT OF REFERENCE UNITS RANGE LAB TRIAM(LOIN Negative C) TRICHOMONAS VAGINALIS NEGATIVE LAB SOURCE(KAREN NC) Lab Specimen Source Genital Performed By: #### TRICA #### [facility] [id number] [place] [address] GC + CHLAMYDIA BY Collected: 02/04/2018 Status: F Source: DRIVER AMPLIFIED DETECTION 1:50 PM HOSPITALS REPOSITORY TYPE CODE TESTS RESULT OUT OF RANGE REFERENCE UNITS LAB GCAMP(LOIN NEGATIVE C) Abnormal N.GONORRHEA,AMP POSITIVE LIFIED LAB CTAMP(LOIN NEGATIVE C) CHLAMYDIA NEGATIVE TRACH.,AMPLIFIE D LAB SOURCE(KAREN NC) Lab Specimen Source Genital Performed By: #### GCCHA #### [facility] [id number] [place] [address] PROVIDER NOTE - ED Observed: 02/04/2018 Status: COMPLETED Source: DRIVER V2 1:49 PM HOSPITALS REPOSITORY Provider Note - ED v2: Chart Review: ED NOTES ED NOTES: HPI: Patient is a 37-year-old male, presents to the emergency department for penile discharge, irritation, dysuria for the last 2 days. Denies any abdominal pain, nausea, vomiting, diarrhea, fever, chills, chest pain, shortness of breath, headaches, visual changes, syncope. PMHx: Schizoaffective disorder Allergies: Narcotic Horses Medications: reviewed Social Hx: +tobacco, +marijuana, denies etoh REVIEW OF SYSTEMS: GENERAL.: No weight loss, fatigue, anorexia, insomnia, fever. EYES: No vision loss, double vision, drainage, eye pain. ENT: No pharyngitis, dry mouth. CARDIOPULMONARY: No chest pain, palpitations, syncope, near syncope. No shortness of breath, cough, hemoptysis. GI: No abdominal pain, change in bowel habits, melena, hematemesis, hematochezia, nausea, vomiting, diarrhea. : see HPI MS: No limb pain, joint pain, joint swelling. SKIN: No rashes. PSYCH: No depression, anxiety, suicidality, homicidality. Review of systems is otherwise negative unless stated above or in history of present illness. Physical Exam: GENERAL.: Vitals noted. No distress. HEENT: Normocephalic atraumatic. PERRLA, EOM intact, nose is patent bilateral NECK: Supple. No adenopathy. CARDIAC: Regular rate rhythm. No murmur rubs or gallops. PULMONARY: Equal breath sounds bilaterally. No wheezes rales or rhonchi ABDOMEN: Soft, nontender, nonsurgical. Normoactive bowel sounds. MS: Full weight bearing, GARCIA, No joint effusions, clubbing or edema noted SKIN: Intact, No lesions, rashes noted, turgor good : Purulent discharge noted to the tip of the penis HISTORY OF PRESENTING ILLNESS ZAINA is a 37 year old Male and was seen by me at 04-Feb-2018 13:42. Triage Information: Most recent Vital Sign Value Date Temp (F): 96.8 02-04-2018 13:39 Temp (C): 36 02-04-2018 13:39 Heart Rate (beats/min): 127 02-04-2018 13:39 Respirations (breaths/min): 16 02-04-2018 13:39 SpO2 (%): 94 02-04-2018 13:39 BP Systolic (mm Hg): 107 02-04-2018 13:39 BP Diastolic (mm Hg): 71 02-04-2018 13:39 PAST MEDICAL HISTORY ATTESTATION: I have reviewed and confirmed nurse's/medic's notes for patient's medications, allergies, medical history, and surgical history ALLERGIES/INTOLERANCES: Allergy Allergen: morphine Type: Drug Reaction: Hives/Urticaria Allergen: Horse Type: Environment Reaction: Swelling/Edema Anaphylaxis Facial Swelling Allergen: opiates Type: Drug Category Reaction: Unknown Allergen: narcotic analgesics Type: Drug Category Reaction: Unknown HEALTH HISTORY: Medical History Name:Schizoaffective disorder Code:F25.9 Name:Alcohol addiction Code:F10.20 Name:Overdose of antipsychotic Code:T43.501A Name:Overdose of antidepressant Code:T43.201A Name:Alcohol dependence with uncomplicated withdrawal Code:F10.230 OUTPATIENT MEDICATIONS: Home Medications Review Status for Reconciliation: N/A Med Status: Patient Currently Takes Medications Drug Name: gabapentin 400 mg oral capsule Instructions: 2 cap(s) orally 3 times a day Drug Name: busPIRone 15 mg oral tablet Instructions: 1 tab(s) orally every 8 hours Drug Name: folic acid 1 mg oral tablet Instructions: 1 tab(s) orally once a day Drug Name: traZODone 100 mg oral tablet Instructions: 1 tab(s) orally once a day (at bedtime) PRN Drug Name: omeprazole 40 mg oral delayed release capsule Instructions: 1 cap(s) orally once a day Drug Name: thiamine 100 mg oral tablet Instructions: 1 tab(s) orally once a day Drug Name: Multiple Vitamins with Minerals oral tablet Instructions: 1 tab(s) orally once a day Drug Name: ziprasidone 60 mg oral capsule Instructions: 1 cap(s) orally 2 times a day Drug Name: diazePAM 2 mg oral tablet Instructions: 1 tab(s) orally every 12 hours for 1 day, then 0.5 tab orally every 12 hours, then 0.5 tab orally daily. then stop Drug Name: nicotine 21 mg/24 hr transdermal film, extended release Instructions: 1 patch transdermal every 24 hours SIGNIFICANT EVENTS: Past Medical History Description:schizoaffective disorder Description:GERD Description:Hypertension (HTN) Description:EtOH abuse Description:Seizure Disorder Additional Notes:from alcohol withdraw PSYCHOSOCIAL SCREENING: NO: concerns for safety at home, feelings of depression, feels like hurting others and feels like hurting self CURRENT OR FORMER SUBSTANCE USE: YES: Cigarette/Tobacco and Street Drugs NO: e-Cigarette/Vaping and Alcohol MEDICAL DECISION MAKING/ED COURSE MDM/ED COURSE: Plan of care discussed, patient will be treated for STD, given ceftriaxone, azithromycin, Flagyl, will be discharged home in stable condition CLINICAL IMPRESSION Diagnosis/Annotation: ED Dx Name:Urethritis Code:N34.2 Name:Concern about STD in male without diagnosis Code:Z71.1 Dispostion: discharged Type: home Condition on Disposition: stable ATTESTATION CRITICAL CARE TIME Is this a critically ill patient: no Electronic Signatures: Cheyanne Lombardo) (CLINICAL LIAISON-SEED PRODUCTION FIELD SUPERVISOR) (Signed 04-Feb-2018 13:53) Authored: Provider Note - ED v2 Last Updated: 04-Feb-2018 13:53 by Cheyanne Lombardo) (CLINICAL LIAISON-SEED PRODUCTION FIELD SUPERVISOR) TRIAGE - ED Observed: 02/04/2018 Status: UNK Source: DRIVER 1:39 PM HOSPITALS REPOSITORY Pain: Pain Rating (0-10): Activity8 Chart Review: CHIEF COMPLAINT ZAINA DOLL is a Male patient with a chief complaint of (STD check). Triage Date/Time: 04-Feb-2018 13:39 Pain Rating (0-10): Activity: 8 Pain location: penis Vital Signs: Temperature: 96.8F ( 36.0C) taken forehead Blood Pressure: 107/71 Mean: Heart Rate: 127 Respiratory Rate: 16 Pulse Oximetry: 94% on room air, no respiratory support. Height: 6 feet 3.00 inches. 190.5 CM Weight: 200.0 pounds. Calculated 90.7 kg. (stated) Calculated BMI (kg/m2): 24.992 Calculated BSA (m2) 2.19 Cough lasting greater than 3 weeks: no Travel outside of [place]: no Allergies: yes Patient has suicidal thoughts: no Patient has homicidal thoughts: no GEOVANNA: 3V PAIN Pain Scale Used: ALLI Past Medical History: Past Medical History Reviewedyes Electronic Signatures: Yudy Valdovinos (GARY) (Signed 04-Feb-2018 13:41) Authored: Triage, Past Medical History Last Updated: 04-Feb-2018 13:41 by Yudy Valdovinos (RN) PROVIDER NOTE - ED Observed: 01/19/2018 Status: COMPLETED Source: UNIVERSITY CARE TRANSITION 4:12 AM HOSPITALS REPOSITORY ED Care Transition: Chart Review: ED NOTES ED NOTES: This is a 37-year-old male who was signed out to me by Dr. Moss. He presented with right arm weakness and decreased sensation. He had a normal head CT and MRI of the C-spine was pending. He does have a history of alcohol abuse. He denies any injuries. On my reevaluation of the patient he has full strength in his deltoid, biceps, triceps bilaterally. He has decreased strength and wrist extension and in his fingers with full strength in wrist flexion. He has decreased sensation across the entire lower arm and hand. There is very slight swelling of the hand which appears to be dependent edema. The patient's CT and MRI are both normal. At this time the patient's exam is consistent with a radial neuropathy. He was placed in a wrist splint and sling for comfort. He is instructed to take his arm out of the sling several times a day to fully move his shoulder and elbow to prevent stiffness. He is instructed to follow up with neurology. The patient did appear to have some minor alcohol withdrawal symptoms while in the department and was given a single dose of Valium. At time of discharge the patient has a CIWA score of 2. La Moya DO PGY-4, Emergency Medicine CLINICAL IMPRESSION Diagnosis/Annotation: ED Dx Name:Arm paresthesia, right Code:R20.2 Name:Right arm weakness Code:R29.898 Name:Radial neuropathy Code:G56.30 Dispostion: discharged Type: home Condition on Disposition: stable ATTESTATION Attestation: I saw and evaluated the patient. I personally obtained the goodwin and critical portions of the history and physical exam or was physically present for goodwin and critical portions performed by the resident/fellow. I reviewed the resident/fellows documentation and discussed the patient with the resident/fellow. I agree with the resident/fellows medical decision making as documented in the resident/fellows note with the exception/addition of the following Comments/Additional Findings: This patient was seen by the resident physician. I have seen and examined the patient, agree with the workup, evaluation, management and diagnosis. The care plan has been discussed and I concur. My assessment reveals a very pleasant 37yoM with history of EtOH abuse presenting for 2-3 days of RUE weakness and decreased sensations. Please see the initial treating team's H&P. The care of the patient was transitioned to myself at which time imaging was pending. On re-evaluation the patient is AAOx3 with CN 2-12 intact. He has normal 5/5 strength in the LUE and LLE and RLE. His proximal muscle strength is 5/5 in the RUE as well. He has 5/5 strength in the flexion of the wrist but 2/5 with extension. Coordination is preserved in the left and right lower extremity. He reports diminished sensation to light touch from the mid forearm with weakness of the lumbricals. This seems consistent with radial nerve palsy. CT head is unremarkable with the exception of highly calcified basal ganglia and C-spine MRI unremarkable for central cause. Given our reexam is consistent with radial nerve palsy we have splinted the patient, encouraged neurology follow-up and discharged the patient to home in good condition. CRITICAL CARE TIME Is this a critically ill patient: no Electronic Signatures: La Moya (DO (Resident)) (Signed 19-Jan-2018 04:15) Authored: ED Care Transition Chuy Newsome) (Signed 21-Jan-2018 15:05) Authored: ED Care Transition Co-Signer: ED Care Transition Last Updated: 21-Jan-2018 15:05 by Chuy Newsome () NR CT HEAD WO Observed: 01/18/2018 Status: F Source: UNIVERSITY CONTRAST 11:26 PM HOSPITALS REPOSITORY Patient Name: ZAINA DOLL STUDY: NR CT HEAD WO CONTRAST; 01/18/2018 11:26 pm INDICATION: Signs/Symptoms: right arm weakness, Lie Flat: Yes. COMPARISON: None. ACCESSION NUMBER(S): [id number] ORDERING CLINICIAN: DELMIS MOSS TECHNIQUE: Axial noncontrast CT images of the head. FINDINGS: BRAIN PARENCHYMA: Crocker-white matter interfaces are preserved. No mass, mass effect or midline shift. Incidental note is made of dense bilateral basal ganglia calcifications. These are nonspecific in nature but could be idiopathic (e.g., Fahr disease), toxic (carbon monoxide poisoning or mineralizing microangiopathy associated radiation therapy and chemotherapy) or metabolic in nature (parathyroid disorders or hypothyroidism). Infection or hereditary disease are considered unlikely. HEMORRHAGE: No acute intracranial hemorrhage. VENTRICLES and EXTRA-AXIAL SPACES: Normal size. EXTRACRANIAL SOFT TISSUES: Within normal limits. PARANASAL SINUSES/MASTOIDS: Within normal limits. CALVARIUM: No depressed skull fracture. IMPRESSION: No acute infarct or hemorrhage. MRI is more sensitive for the evaluation of stroke and is recommended for further evaluation if clinically indicated. Electronically signed by: DEANNE TONEY MD PROVIDER NOTE - ED Observed: 01/18/2018 Status: COMPLETED Source: UNIVERSITY V2 10:52 PM HOSPITALS REPOSITORY Provider Note - ED v2: Chart Review: ED NOTES ED NOTES: Chief complaint: arm weakness History of Present Illness: 37-year-old male with history of schizoaffective disorder, polysubstance abuse including alcohol with multiple admissions for alcohol withdrawal who presents for concerns for arm weakness. Patient states he woke up 3 days ago with diffuse right arm paresthesia and weakness. States he is unable to use his arm due to his symptoms. States that arm is shaky and he has difficulty 'directing his arm to do things.' Developed hand swelling over the past day. Denies any pain. Denies recent injection into that arm or recent trauma. Denies similar symptoms in the past. States he has been clean from drug since early April and has not been drinking as much lately. Last drink last night. Denies paresthesia, weakness in leg, fever, chills, joint swelling, neck or back pain, chest pain, shortness of breath, headache, vision changes. Denies history of DVT. Review of Systems: A complete review of systems was obtained. All systems negative unless noted in the HPI. Past Medical History: as per HPI, reviewed in EMR -see below Past Surgical History: as per HPI, reviewed in EMR- see below Family History: Reviewed and not pertinent to chief complaint Social History: Daily tobacco and alcohol use. Former cocaine and IV drug use. Medications: reviewed in EMR (see below) and discussed with patient Allergies: reviewed in EMR (see below) and discussed with patient Physical Exam: GEN: well-developed, no acute distress, sitting in bed, awake, alert HEAD: Normocephalic, no external signs of trauma EYES: PERRL, EOMI, sclera anicteric ENT: nares patent, moist mucous membranes NECK: supple, ROM intact, mild midline and paraspinal tenderness lower C-spine CVS: RRR, audible S1/S2, well-perfused PULM: CTAB, no w/r/r, nonlabored respirations, no chest wall tenderness GI: soft, nontender, nondistended, no rebound or guarding BACK: no midline or paraspinal tenderness, no stepoffs EXT: right arm with passive ROM major joints intact, mild hand swelling NEURO: A&Ox3, cranial nerves grossly intact, diminished sensation diffusely of right upper extremity, slight tremor of right arm but able to extend without drift, isolated muscle function testing difficult due to weakness/shaking SKIN: no apparent lesions ED Course/Medical Decision-Makin-year-old male with history of schizoaffective disorder, polysubstance abuse including alcohol with multiple admissions for alcohol withdrawal who presents for concerns for right arm weakness and paresthesia x 3 days. VItals stable. Patient well-appearing. He does have shakiness and what appears to be weakness in right upper extremity but is able to extend without much drift. Also has lower C-spine tenderness without any known trauma. Paresthesia in non-dermatomal pattern but concerning for possible cervical/proximal brachial plexus injury. No tenderness over hand which is slightly swollen. Low suspicion for DVT or septic joint. Low suspicion for stroke. Less likely B12 deficiency given motor involvement. MRI C-spine and CT head ordered. [facility] pending imaging. If unremarkable, may need neuro evaluation as etiology of symptoms not entirely clear. Impression: Right arm paresthesia/weakness Disposition: pending MRI and CT Patient staffed with Dr. Mcarthur who agrees with course and plan. Delmis Moss MD Emergency Medicine PGY3 HISTORY OF PRESENTING ILLNESS ZAINA is a 37 year old Male and was seen by me at 18-Jan-2018 21:01 for a chief complaint of arm pain/injury . Other complaints include: pt complaining of R arm pain/weakness xfew days;; pt has history of alcohol and drug abuse. Pt denies having injected into that arm in the last several weeks . Triage Information: Most recent Vital Sign Value Date Temp (F): 97.1 01-18-2018 20:53 Temp (C): 36.2 01-18-2018 20:53 Heart Rate (beats/min): 100 01-18-2018 20:53 Respirations (breaths/min): 16 01-18-2018 20:53 SpO2 (%): 98 01-18-2018 20:53 BP Systolic (mm Hg): 142 01-18-2018 20:53 BP Diastolic (mm Hg): 93 01-18-2018 20:53 PAST MEDICAL HISTORY ATTESTATION: I have reviewed and confirmed nurse's/medic's notes for patient's medications, allergies, medical history, and surgical history ALLERGIES/INTOLERANCES: Allergy Allergen: morphine Type: Drug Reaction: Hives/Urticaria Allergen: Horse Type: Environment Reaction: Swelling/Edema Anaphylaxis Facial Swelling Allergen: opiates Type: Drug Category Reaction: Unknown Allergen: narcotic analgesics Type: Drug Category Reaction: Unknown HEALTH HISTORY: Medical History Name:Schizoaffective disorder Code:F25.9 Name:Alcohol addiction Code:F10.20 Name:Overdose of antipsychotic Code:T43.501A Name:Overdose of antidepressant Code:T43.201A Name:Alcohol dependence with uncomplicated withdrawal Code:F10.230 OUTPATIENT MEDICATIONS: Home Medications Review Status for Reconciliation: N/A Med Status: Patient Currently Takes Medications Drug Name: gabapentin 400 mg oral capsule Instructions: 2 cap(s) orally 3 times a day Drug Name: busPIRone 15 mg oral tablet Instructions: 1 tab(s) orally every 8 hours Drug Name: folic acid 1 mg oral tablet Instructions: 1 tab(s) orally once a day Drug Name: traZODone 100 mg oral tablet Instructions: 1 tab(s) orally once a day (at bedtime) PRN Drug Name: omeprazole 40 mg oral delayed release capsule Instructions: 1 cap(s) orally once a day Drug Name: thiamine 100 mg oral tablet Instructions: 1 tab(s) orally once a day Drug Name: Multiple Vitamins with Minerals oral tablet Instructions: 1 tab(s) orally once a day Drug Name: ziprasidone 60 mg oral capsule Instructions: 1 cap(s) orally 2 times a day Drug Name: diazePAM 2 mg oral tablet Instructions: 1 tab(s) orally every 12 hours for 1 day, then 0.5 tab orally every 12 hours, then 0.5 tab orally daily. then stop Drug Name: nicotine 21 mg/24 hr transdermal film, extended release Instructions: 1 patch transdermal every 24 hours SIGNIFICANT EVENTS: Past Medical History Description:schizoaffective disorder Description:GERD Description:Hypertension (HTN) Description:EtOH abuse Description:Seizure Disorder Additional Notes:from alcohol withdraw CLINICAL IMPRESSION Diagnosis/Annotation: ED Dx Name:Arm paresthesia, right Code:R20.2 Name:Right arm weakness Code:R29.898 Name:Radial neuropathy Code:G56.30 Dispostion: discharged Type: home ATTESTATION Attestation: I saw and evaluated the patient. I personally obtained the goodwin and critical portions of the history and physical exam or was physically present for goodwin and critical portions performed by the resident/fellow. I reviewed the resident/fellows documentation and discussed the patient with the resident/fellow. I agree with the resident/fellows medical decision making as documented in the residents note CRITICAL CARE TIME Is this a critically ill patient: no Electronic Signatures: Rebekah Mcarthur) (Signed 20-Jan-2018 06:41) Authored: Provider Note - ED v2 Co-Signer: Provider Note - ED v2 Delmis Moss (Resident)) (Signed 19-Jan-2018 03:33) Authored: Provider Note - ED v2 Last Updated: 20-Jan-2018 06:41 by Rebekah Mcarthur () References: 1. Data Referenced From Triage - ED 01/18/2018 8:53 PM NR MRI CERVICAL WO Observed: 01/18/2018 Status: F Source: DRIVER 10:43 PM [facility] REPOSITORY Patient Name: ZAINA DOLL STUDY: NR MRI CERVICAL WO; 01/18/2018 10:43 pm INDICATION: Signs/Symptoms: right arm spasticity/paresthesia x 3 days, Lie Flat: Yes, Pre Med: No. COMPARISON: None. ACCESSION NUMBER(S): [id number] ORDERING CLINICIAN: DELMIS MOSS TECHNIQUE: The cervical spine was studied in the sagittal and axial planes utilizing T1 and T2 weighted images. FINDINGS: The marrow signal in vertebral body height are normal. The craniovertebral junction is normal. The cord is normal in size. Heterogeneous signal is projected over the cord in a pattern most suggestive of artifact. There is no evidence of bulging or herniated disc. There is no evidence of canal or foraminal narrowing. The visualized paraspinal soft tissues within the neck are normal. IMPRESSION: MRI of the cervical spine is within normal limits. THIS EXAMINATION WAS INTERPRETED AT [facility] Electronically signed by: VIOLA JESUS MD RISK SCREEN - ADULT Observed: 01/18/2018 Status: UNK Source: DRIVER EMERGENCY 8:55 PM HOSPITALS REPOSITORY Preferred Language: Preferred Language: Preferred Language for Discussing Health Care (patient/designee)Sudanese Advanced Directives: Advance Directive Medicalno Advance Directive Information Givenpatient/family declined Family Violence Adult: Abuse Screen: Are you or have you been threatened or abused physically, emotionally, or sexually by anyoneno Suicide / Depression: Suicide/Depression Screen: During the past month, have you often been bothered by feeling down, depressed or hopelessno During the past month, have you often had little interest or pleasure in doing thingsno Have you had any thoughts of harming yourselfno (1) Have you had any thoughts of harming anyone elseno (1) Learning Assessment (Patient): Learning Assessment (Patient): Patient is Able to be Assessed for Learningyes Factors Influencing Readiness to Learninterest in learning; pain Factors that Impact Ability to Learnnone Devices/Methods Used to Communicatenone Learning Preferencesskill demonstration Cultural Considerationsnone Developmental Considerationsnone Orthodox Considerationsnone Learning Assessment (Other Learner): Learning Assessment (Other Learner): Other learner availableno Fall Risk Adult: Falls Risk: Altered Mobilitynone Change in Mental Statusno Relevant Medical History / Diagnosisnone Fall Historynone Altered Eliminationno Medications that Might Alter: equilibrium, cognitive judgement or severity of injurynone Sensory Deficitno UNABLE or UNWILLING to Follow Directionsno Patient Identified as a Falls Riskno Provide Rationale not identified as Falls Riskno risk factors identified Pressure Injury: Pressure Injury Present on Admissionno Respiratory / Cough /TB: ED / TB / Cough / Respiratory Screen: Do you have a coughno Smoking/Social History (Required age 13 or older): Smoking Status: current every day smoker Alcohol Use: daily Drug Use: weekly amphetamines Admission Risk Screen: Significant IndicatorsComplete CAGE: CAGE: Is this an injured patient at a Trauma Center ([facility] / [facility]): no Electronic Signatures: Valentina Reynolds (GARY) (Signed 18-Jan-2018 20:55) Authored: Preferred Language, Advanced Directives, Family Violence Adult, Suicide / Depression, Learning Assessment (Patient), Learning Assessment (Other Learner), Fall Risk Adult, Pressure Injury, Respiratory / Cough /TB, Smoking/Social History (Required age 13 or older), CAGE Last Updated: 18-Jan-2018 20:55 by Valentina Reynolds (GARY) References: 1. Data Referenced From Triage - ED 01/18/2018 08:53 PM TRIAGE - ED Observed: 01/18/2018 Status: UNK Source: DRIVER 8:53 PM HOSPITALS REPOSITORY Pain: Pain Rating (0-10): Rest8 Chart Review: CHIEF COMPLAINT ZAINA DOLL is a Male patient with a chief complaint of arm pain/injury. Other Complaints: pt complaining of R arm pain/weakness xfew days;; pt has history of alcohol and drug abuse. Pt denies having injected into that arm in the last several weeks Triage Date/Time: 18-Jan-2018 20:53 Pain Rating (0-10): Rest: 8 Vital Signs: Temperature: 97.1F ( 36.2C) taken temporal Blood Pressure: 142/93 Mean: Heart Rate: 100 Respiratory Rate: 16 Pulse Oximetry: 98% on room air, no respiratory support. Height: 6 feet 3.00 inches. 190.5 CM Weight: 190.0 pounds. Calculated 86.1 kg. Calculated BMI (kg/m2): 23.725 Calculated BSA (m2) 2.13 Cough lasting greater than 3 weeks: no Travel outside of [place]: no Allergies: yes Mask applied: no Patient has suicidal thoughts: no Patient has homicidal thoughts: no GEOVANNA: 3 Symptoms Are POSITIVE For: difficulty bending, numbness, pain (describe) and decreased ROM. Symptoms Are Negative For: abrasion, bleeding, bruising, deformity, difficulty walking and tingling. PAIN Pain Scale Used: ALLI Past Medical History: Past Medical History Reviewedyes Seizure Disorder: Past Medical History, from alcohol withdraw, Active EtOH abuse: Past Medical History, Active Hypertension (HTN): Past Medical History, Active GERD: Past Medical History, Active schizoaffective disorder: Past Medical History, Active Electronic Signatures: Valentina Reynolds (GARY) (Signed 18-Jan-2018 20:57) Authored: Triage, Past Medical History Last Updated: 18-Jan-2018 20:57 by Valentina Reynolds (GARY) DISCHARGE SUMMARY Observed: 01/07/2018 Status: COMPLETED Source: DRIVER 11:23 AM HOSPITALS REPOSITORY Send Summary: Discharge Summary Providers: Provider RoleProvider Name Katie Miramontes Note Recipients: Correct Info, Needed, Jose R Gaona MD - [id number] [] Discharge: Summary: Admission Date: .04-Jan-2018 02:22:00 Discharge Date: 07-Jan-2018 Attending Physician at Discharge: Katie Tay Admission Reason: sadness and crying(1) Final Discharge Diagnoses: Alcohol use with intoxication, Alcohol withdrawal hallucinosis, GERD (gastroesophageal reflux disease), Polysubstance abuse, Schizoaffective disorder, Procedures: none Condition at Discharge: Fair Disposition at Discharge: .Home Vital Signs: T PRBPSpO2 [id number]/8898% Date/Time01/07 8: 8: 8: 8: 8:02 Range(36.8C - 37C ) (85 - 93 ) (18 - 18 ) (127 - 138 )/ (79 - 97 ) (97% - 99% ) Highest temp of 37 C was recorded at 01/06 18:56 Physical Exam: Constitutional: Well developed, awake/alert/oriented x3, no distress Eyes: EOMI, clear sclera Head/Neck: Neck supple, no apparent injury, No JVD Respiratory/Thorax: CTAB, normal breath sounds with good chest expansion, thorax symmetric, good air movement Cardiovascular: Regular, rate and rhythm, no murmurs, normal S 1and S 2 Gastrointestinal: Nondistended, soft, non-tender, no rebound tenderness or guarding, +BS, Musculoskeletal: ROM intact, no joint swelling, normal strength Extremities: no cyanosis edema, contusions or wounds, no clubbing Neurological: alert and oriented x3, intact senses, no focal neurological deficits. no tremors this AM; non-diaphoretic this AM, non-plethoric. Psychological: depressed, anxious no SI, HI Skin: Warm and dry, no lesions, no rashes Hospital Course: 37 yo male with PMH of schizoaffective, polysubstance abuse, GERD, CBP, etoh abuse with hx of withdrawals, and have been in many detox programs. He presents to ED due to sadness and crying, and states that he wants to get better. At some point he was planning on leaving from ED AMA but he decided to stay due to being homeless now and wants to get better as he stated before. He endorses having his last drink last night. No recent drug use >1 wk. Patient admitted for ETOH intoxication (ETOH lvl 300's) and later withdrawals. Patient was placed on CIWA scale and ativan. On 01/03 CIWA score in AM 4, later afternoon 18, code buck called for assessment for MICU. Pt CIWA decreased with ativan and pt condition stable, no transfer to MICU needed at this point. Valium 5mg TID scheduled, decreased to 2mg TID, hasn't required ativan coverage. Latest CIWA score 2 to 3. Cardiac monitoring tachycardic initially, ut improved. MV , folate, thiamine. IVF for approximately 1 day, then DC due to good PO intake. Pt discharged on Valium taper. hx schizoaffective, not been taking ziprasidone and trazodone, he ran out of the first one and the second he didn't call prescription- he uses for isnomnia as needed. Requesting Ziprasidone prescription, provided 1 wk. continue on buspirone. GERD continue on PPI CBP continue on gabapentin Pt DC and follow up appt as OP with PCP and psych Discharge Information: and Continuing Care: Discharge Instructions: Activity: activity as tolerated. May shower.. May return to school/work. May drive.. Nutrition/Diet: regular Follow Up Appointments: Follow-Up Appointment 01: Physician/Dept/Service: [facility] - Primary Care Physician Call to Schedule in: Office requests you call to schedule appointment Location: [place] [address] Follow-Up Appointment 02: Physician/Dept/Service: Psychiatry Call to Schedule in: Office requests you call to schedule appointment Discharge Medications: Home Medication gabapentin 400 mg oral capsule - 2 cap(s) orally 3 times a day busPIRone 15 mg oral tablet - 1 tab(s) orally every 8 hours folic acid 1 mg oral tablet - 1 tab(s) orally once a day traZODone 100 mg oral tablet - 1 tab(s) orally once a day (at bedtime) PRN omeprazole 40 mg oral delayed release capsule - 1 cap(s) orally once a day thiamine 100 mg oral tablet - 1 tab(s) orally once a day Multiple Vitamins with Minerals oral tablet - 1 tab(s) orally once a day ziprasidone 60 mg oral capsule - 1 cap(s) orally 2 times a day diazePAM 2 mg oral tablet - 1 tab(s) orally every 12 hours for 1 day, then 0.5 tab orally every 12 hours, then 0.5 tab orally daily. then stop nicotine 21 mg/24 hr transdermal film, extended release - 1 patch transdermal every 24 hours PRN Medication Lab Results - Pending: None Radiology Results - Pending: None Signature/Cosignature/Attestation: Provider/Team Contact Info-Pager NumberHosp G [phone] Electronic Signatures: Katie Tay) (Signed 07-Jan-2018 17:54) Authored: Send Summary, Summary Content, Ongoing Care, Signature/Cosignature/Attestation Last Updated: 07-Jan-2018 17:54 by Katie Tay) References: 1. Data Referenced From History and Physical 01/04/2018 3:26 PM DISCHARGE PROFILE2 Observed: 01/06/2018 Status: UNK Source: DRIVER 10:50 AM HOSPITALS REPOSITORY Discharge Orders: Anticipated Discharge Date: Anticipated Discharge [id number] Problem List: Admitting Dx: Alcohol withdrawal hallucinosis: Catalog Name: Alcohol dependence with withdrawal with perceptual disturbance Additional Dx: Polysubstance abuse: Catalog Name: Other psychoactive substance abuse, uncomplicated Chronic back pain: Catalog Name: Dorsalgia, unspecified GERD (gastroesophageal reflux disease): Catalog Name: Gastro-esophageal reflux disease without esophagitis Alcohol use disorder, moderate, dependence: Catalog Name: Alcohol dependence, uncomplicated Schizoaffective disorder: Catalog Name: Schizoaffective disorder, unspecified Alcohol use with intoxication: Catalog Name: Alcohol use, unspecified with intoxication, unspecified Prelim Disch Dx: Alcohol withdrawal: Catalog Name: Alcohol dependence with withdrawal, unspecified Activity: activity as tolerated. May shower. May return to school/work Instructions: May drive. Diet: Dietregular Call Provider If (Homegoing Patients): Breathing faster than normal. Breathing harder than normal or having retractions. Fever of 100.4 F (38 C) or higher. Chills. Drinking less than normal. Urinating less than normal, over 1 day. Acting very sleepy and difficult to awaken. Vomiting (throwing up) and not able to eat or drink for 12 hours. 3 or more loose, watery bowel movements in 24 hours (diarrhea). Hospital Course (Home Care/Gold Form): Hospital Course: Hospital Course: include significant abnormal lab values 37 yo male with PMH of schizoaffective, polysubstance abuse, GERD, CBP, etoh abuse with hx of withdrawals, and have been in many detox programs. He presents to ED due to sadness and crying, and states that he wants to get better. At some point he was planning on leaving from ED AMA but he decided to stay due to being homeless now and wants to get better as he stated before. He endorses having his last drink last night. No recent drug use >1 wk. Patient admitted for ETOH withdrawals. Pt in bed doing better than yesterday with his withdrawals. Tolerating diet *Alcohol withdrawals -ETOH lvl 300's -CIWA and ativan -on 01/03 CIWA score earlier today 4, later afternoon 18, code white called for assessment for MICU likely will need transfer for higher level of care/precedex. Pt CIWA decreased and pt condition stable, no transfer to MICU needed at this point. Valium 5mg TID scheduled, will decrease to 2mg TID, hasn't required ativan coverage. Latest CIWA score 2 to 3. -Cardiac monitoring -MV , folate, thiamine - DC IVF good PO intake *BH hx schizoaffective, not been taking ziprasidone and trazodone, he ran out of the first one and the second he didn't call prescription- he uses for isnomnia as needed. - continue on buspirone, resume ziprasidone, gabapentin, folic acid, thiamine, MV *GERD continue on PPI *CBP continue on gabapentin Provider FINAL REVIEW of Orders: Final Review: Final Review of Medication Reconciliation and Orders Completedby Physician Reviewing ProviderKatie Tay MD at 07-Jan-2018 11:22:15 Appointments: Follow-Up Appointment 01: [facility] Call to Schedule inOffice requests you call to schedule appointment [facility], [address] [place] [address] Phone [phone] CommentsTo establish Care no appt. is necessary - will see walk in patients. Follow-Up Appointment 02: Physician/Dept/ServicePsychiatry Call to Schedule inOffice requests you call to schedule appointment Phone [phone] Electronic Signatures: Katie Tay) (Signed 07-Jan-2018 11:22) Authored: Discharge Orders, Hospital Course (Home Care/Gold Form), Provider FINAL REVIEW of Orders, Gold Form - Hay Stacker Summary Zayda Parks (PT ACC REP) (Signed 07-Jan-2018 11:47) Authored: Appointments Last Updated: 07-Jan-2018 11:47 by Zayda Parks (PT ACC REP) DAILY PROGRESS Observed: 01/06/2018 Status: COMPLETED Source: UNIVERSITY NOTE-MEDICINE 10:45 AM HOSPITALS REPOSITORY Service: Medicine Subjective Data: ZAINA DOLL is a 37 year old Male who is Hospital Day # 3. Objective Data: Objective Information: T PRBPSpO2 [id number]/7998% Date/Time01/06 6: 6: 6: 6: 6:42 Range(36.3C - 36.9C ) (77 - 110 ) (18 - 18 ) (121 - 136 )/ (79 - 92 ) (93% - 99% ) Highest temp of 36.9 C was recorded at 01/05 14:51 Pain with Activity reported at 01/05 19:25: 0 Pain at Rest reported at 01/05 19:25: 0 Physical Exam: Constitutional: Well developed, awake/alert/oriented x3, no distress Eyes: EOMI, clear sclera Head/Neck: Neck supple, no apparent injury, No JVD Respiratory/Thorax: CTAB, normal breath sounds with good chest expansion, thorax symmetric, good air movement Cardiovascular: Regular, rate and rhythm, no murmurs, normal S 1and S 2 Gastrointestinal: Nondistended, soft, non-tender, no rebound tenderness or guarding, +BS, Musculoskeletal: ROM intact, no joint swelling, normal strength Extremities: no cyanosis edema, contusions or wounds, no clubbing Neurological: alert and oriented x3, intact senses, no focal neurological deficits. no tremors this AM; non-diaphoretic this AM, non-plethoric. Psychological: depressed, anxious no SI, HI Skin: Warm and dry, no lesions, no rashes Medication: Medications: Continuous Medications No continuous medications are active Scheduled Medications 1. busPIRone: 15 mg Oral Every 8 Hours 2. diazePAM: 2 mg Oral Every 8 Hours 3. Folic Acid: 1 mg Oral Daily 4. Gabapentin: 800 mg Oral 3 Times a Day 5. Multivitamin with Minerals: 1 tablet(s) Oral Daily 6. Nicotine 21 mg/ 24 hour TransDermal: 1 patch TransDermal Every 24 Hours 7. Pantoprazole: 40 mg Oral Daily 8. Thiamine: 100 mg Oral Daily 9. Ziprasidone: 60 mg Oral 2 Times a Day PRN Medications 1. Acetaminophen: 650 mg Oral Every 4 Hours 2. Docusate: 100 mg Oral 2 Times a Day 3. LORazepam Injectable: 0.5 mg IntraVenous Push Every 2 Hours 4. LORazepam Injectable: 1 mg IntraVenous Push Every 2 Hours 5. LORazepam Injectable: 2 mg IntraVenous Push Every 2 Hours 6. traZODone: 50 mg Oral At Bedtime Recent Lab Results: Results: I have reviewed these laboratory results: Complete Blood Count 06-Jan-2018 05:30:00 ResultValue White Blood Cell Count 5.8 Nucleated Erythrocyte Count 0.0 Red Blood Cell Count 4.18 L HGB 13.2 L HCT 38.2 L MCV 91 MCHC 34.6 PLT 222 RDW-CV 13.3 Renal Function Panel 06-Jan-2018 05:30:00 ResultValue Glucose, Serum 83 NA 138 K 4.0 CL 103 Bicarbonate, Serum 25 Anion Gap, Serum 14 BUN 18 CREAT 0.52 GFR-Non >60 GFR- >60 Calcium, Serum 9.2 Phosphorus, Serum 4.1 ALB 3.7 Assessment and Plan: Assessment: 37 yo male with PMH of schizoaffective, polysubstance abuse, GERD, CBP, etoh abuse with hx of withdrawals, and have been in many detox programs. He presents to ED due to sadness and crying, and states that he wants to get better. At some point he was planning on leaving from ED AMA but he decided to stay due to being homeless now and wants to get better as he stated before. He endorses having his last drink last night. No recent drug use >1 wk. Patient admitted for ETOH withdrawals. Pt in bed doing better than yesterday with his withdrawals. Tolerating diet *Alcohol withdrawals -ETOH lvl 300's -CIWA and ativan -on 01/03 CIWA score earlier today 4, later afternoon 18, code white called for assessment for MICU likely will need transfer for higher level of care/precedex. Pt CIWA decreased and pt condition stable, no transfer to MICU needed at this point. Valium 5mg TID scheduled, will decrease to 2mg TID, hasn't required ativan coverage. Latest CIWA score 2 to 3. -Cardiac monitoring -MV , folate, thiamine - DC IVF good PO intake *BH hx schizoaffective, not been taking ziprasidone and trazodone, he ran out of the first one and the second he didn't call prescription- he uses for isnomnia as needed. - continue on buspirone, resume ziprasidone, gabapentin, folic acid, thiamine, MV *GERD continue on PPI *CBP continue on gabapentin DVT ppx: scds, moblization, if bed rest required will add hep subcutaneous FULL CODE Signature/Cosignature/Attestation: Provider/Team Contact Info-Pager NumberLabs and ancillary reviewed 8am-8pm [facility]osp C [phone] Electronic Signatures: Katie Tay) (Signed 06-Jan-2018 10:50) Authored: Service, Subjective Data, Objective Data, Assessment and Plan, Signature/Cosignature/Attestation Last Updated: 06-Jan-2018 10:50 by Katie Tay) CBC Collected: 01/06/2018 Status: F Source: DRIVER 5:30 AM [facility] REPOSITORY TYPE CODE TESTS RESULT OUT OF REFERENCE UNITS RANGE LAB WBCR(LOINC 4.4 - 11.3 x10E9/L ) WBC 5.8 LAB NRBC(LOINC 0.0-0.0 /100 WBC ) NUCLEATED RBC 0.0 LAB RBCCT(LOIN 4.50 - 5.90 x10E12/L C) Low RBC 4.18 LAB HGB(LOINC) 13.5 - 17.5 g/dL Low HGB 13.2 LAB HCT(LOINC) 41.0 - 52.0 % Low HCT 38.2 LAB MCV(LOINC) 80 - 100 fL MCV 91 LAB MCHC2(LOIN 32.0 - 36.0 g/dL C) MCHC 34.6 LAB PLTCT(LOIN 150 - 450 x10E9/L C) PLT 222 LAB RDWCV(LOIN 11.5 - 14.5 % C) RDW-CV 13.3 Performed By: #### CBC #### [facility] [id number] [place] [address] RENAL FUNCTION PANEL Collected: 01/06/2018 Status: F Source: DRIVER 5:30 AM HOSPITALS REPOSITORY TYPE CODE TESTS RESULT OUT OF REFERENCE UNITS RANGE LAB GLU(LOINC) 74 - 99 mg/dL GLUCOSE 83 LAB SOD(LOINC) 136 - 145 mmol/L SODIUM 138 LAB K(LOINC) 3.5 - 5.3 mmol/L POTASSIUM 4.0 LAB CHLOR(LOIN 98 - 107 mmol/L C) CHLORIDE 103 LAB BIC(LOINC) 21 - 32 mmol/L BICARBONATE 25 LAB ANGAP(LOIN 10 - 20 mmol/L C) ANION GAP 14 LAB UREA(LOINC 6 - 23 mg/dL ) UREA NITROGEN 18 LAB CREA(LOINC 0.50 - 1.30 mg/dL ) CREATININE 0.52 LAB GFRFN(LOIN >60 mL/min/1.7 C) 3m2 GFR-NON AM. >60 LAB GFRAA(LOIN >60 mL/min/1.7 C) 3m2 GFR- AM. >60 Result Comment: CALCULATIONS OF ESTIMATED GFR ARE PERFORMED USING THE MDRD STUDY EQUATION FOR THE IDMS-TRACEABLE CREATININE METHODS. CLIN CHEM 2007;53:766-72 LAB CA(LOINC) 8.6 - 10.6 mg/dL CALCIUM 9.2 LAB PHOS(LOINC) 2.5 - 4.9 mg/dL PHOSPHORUS 4.1 Result Comment: The performance characteristics of phosphorus testing in heparinized plasma have been validated by the individual laboratory site where testing is performed. Testing on heparinized plasma is not approved by the FDA; however, such approval is not necessary. LAB ALB(LOINC) 3.4 - 5.0 g/dL ALBUMIN 3.7 Performed By: #### RENAL #### [facility] [id number] [place] [address] DAILY PROGRESS Observed: 01/05/2018 Status: COMPLETED Source: UNIVERSITY NOTE-MEDICINE 7:54 AM HOSPITALS REPOSITORY Service: Medicine Subjective Data: ZAINA DOLL is a 37 year old Male who is Hospital Day # 2. Objective Data: Objective Information: T PRBPSpO2 [id number]/9098% Date/Time01/05 6: 6: 6: 6: 6:51 Range(36.2C - 37.2C ) (56 - 101 ) (14 - 18 ) (100 - 144 )/ (56 - 90 ) (95% - 100% ) Highest temp of 37.2 C was recorded at 01/04 23:56 Pain with Activity reported at 01/04 23:45: 0 Pain at Rest reported at 01/04 23:45: 0 Physical Exam: Constitutional: Well developed, awake/alert/oriented x3, no distress Eyes: EOMI, clear sclera Head/Neck: Neck supple, no apparent injury, No JVD Respiratory/Thorax: CTAB, normal breath sounds with good chest expansion, thorax symmetric, good air movement Cardiovascular: Regular, rate and rhythm, no murmurs, normal S 1and S 2 Gastrointestinal: Nondistended, soft, non-tender, no rebound tenderness or guarding, +BS, Musculoskeletal: ROM intact, no joint swelling, normal strength Extremities: no cyanosis edema, contusions or wounds, no clubbing Neurological: alert and oriented x3, intact senses, no focal neurological deficits. he upper ext tremors-improved; non-diaphoretic this AM, plethoric. Psychological: depressed, anxious no SI, HI Skin: Warm and dry, no lesions, no rashes Medication: Medications: Continuous Medications 1. Sodium Chloride 0.9% Infusion: 1000 mL IntraVenous <Continuous> Scheduled Medications 1. busPIRone: 15 mg Oral Every 8 Hours 2. diazePAM: 5 mg Oral Every 8 Hours 3. Folic Acid: 1 mg Oral Daily 4. Gabapentin: 800 mg Oral 3 Times a Day 5. Multivitamin with Minerals: 1 tablet(s) Oral Daily 6. Nicotine 21 mg/ 24 hour TransDermal: 1 patch TransDermal Every 24 Hours 7. Pantoprazole: 40 mg Oral Daily 8. Thiamine: 100 mg Oral Daily 9. Ziprasidone: 60 mg Oral 2 Times a Day PRN Medications 1. Docusate: 100 mg Oral 2 Times a Day 2. LORazepam Injectable: 0.5 mg IntraVenous Push Every 2 Hours 3. LORazepam Injectable: 1 mg IntraVenous Push Every 2 Hours 4. LORazepam Injectable: 2 mg IntraVenous Push Every 2 Hours 5. traZODone: 50 mg Oral At Bedtime Recent Lab Results: Results: I have reviewed these laboratory results: Complete Blood Count 05-Jan-2018 04:44:00 ResultValue White Blood Cell Count 4.5 Nucleated Erythrocyte Count 0.0 Red Blood Cell Count 4.24 L HGB 13.2 L HCT 39.2 L MCV 92 MCHC 33.7 PLT 229 RDW-CV 12.9 Renal Function Panel 05-Jan-2018 04:44:00 ResultValue Glucose, Serum 88 NA 139 K 4.0 CL 104 Bicarbonate, Serum 25 Anion Gap, Serum 14 BUN 16 CREAT 0.58 GFR-Non >60 GFR- >60 Calcium, Serum 9.2 Phosphorus, Serum 3.8 ALB 3.6 Drug Screen, Urine 04-Jan-2018 04:40:00 ResultValue Comments. SEE BELOW Drug screen results are presumptive and should not be used to assess compliance with prescribed medication. Contact the performing [facility] laboratory to add-on definitive confirmatory testing if clinically indicated. . Toxicology scre Amphetamine Screen, Urine PRESUMPTIVE NEGATIVE CUTOFF LEVEL: 500 NG/ML Cross-reactivity has been reported with high concentrations of the following drugs: buproprion, chloroquine, chlorpromazine, ephedrine, mephentermine, fenfluramine, phentermine, phenylpropanolamine Barbiturate Screen, Urine PRESUMPTIVE NEGATIVE PRESUMPTIVE NEGATIVE CUTOFF LEVEL: 200 NG/ML Benzodiazepine Screen, Urine PRESUMPTIVE NEGATIVE PRESUMPTIVE NEGATIVE CUTOFF LEVEL: 200 NG/ML Cannabinoid Screen, Urine PRESUMPTIVE NEGATIVE PRESUMPTIVE NEGATIVE CUTOFF LEVEL: 50 NG/ML Cocaine Metabolite Screen, Urine PRESUMPTIVE NEGATIVE PRESUMPTIVE NEGATIVE CUTOFF LEVEL: 150 NG/ML Methadone Screen, Urine PRESUMPTIVE NEGATIVE CUTOFF LEVEL: 150 NG/ML The metabolite [id number]-[id number] (LAAM) is not detected by this method in concentrations that would be found in the urine of patients on LAAM therapy. Opiate Screen, Urine PRESUMPTIVE NEGATIVE CUTOFF LEVEL: 300 NG/ML The opiate screen does not detect fentanyl, meperidine, or tramadol. Oxycodone is not consistently detected (refer to Oxycodone Screen, Urine result). Oxycodone Screen, Urine (item) PRESUMPTIVE NEGATIVE CUTOFF LEVEL: 100 NG/ML This test will accurately detect both oxycodone and oxymorphone. PCP Screen, Urine PRESUMPTIVE NEGATIVE CUTOFF LEVEL: 25 NG/ML Cross-reactivity has been reported with dextromethorphan. Assessment and Plan: Assessment: 37 yo male with PMH of schizoaffective, polysubstance abuse, GERD, CBP, etoh abuse with hx of withdrawals, and have been in many detox programs. He presents to ED due to sadness and crying, and states that he wants to get better. At some point he was planning on leaving from ED AMA but he decided to stay due to being homeless now and wants to get better as he stated before. He endorses having his last drink last night. No recent drug use >1 wk. Patient admitted for ETOH withdrawals. Pt in bed doing better than yesterday with his withdrawals. Tolerating diet *Alcohol withdrawals -ETOH lvl 300's -CIWA and ativan -on 01/03 CIWA score earlier today 4, later afternoon 18, code white called for assessment for MICU likely will need transfer for higher level of care/precedex. Pt CIWA decreased and pt condition stable, no transfer to MICU needed at this point. Continue valium 5mg TID scheduled. Latest CIWA score 2/4. -Cardiac monitoring -MV , folate, thiamine -IVF NS 100 cc *BH hx schizoaffective, not been taking ziprasidone and trazodone, he ran out of the first one and the second he didn't call prescription- he uses for isnomnia as needed. - continue on buspirone, resume ziprasidone, gabapentin, folic acid, thiamine, MV *GERD continue on PPI *CBP continue on gabapentin DVT ppx: scds, moblization, if bed rest required will add hep subcutaneous FULL CODE IVF NS at 100 cc/h Signature/Cosignature/Attestation: Provider/Team Contact Info-Pager NumberLabs and ancillary 8am-8pm Hosp C [phone] Electronic Signatures: Katie Tay) (Signed 05-Jan-2018 11:31) Authored: Service, Subjective Data, Objective Data, Assessment and Plan, Signature/Cosignature/Attestation Last Updated: 05-Jan-2018 11:31 by Katie Tay) CBC Collected: 01/05/2018 Status: F Source: DRIVER 4:44 AM HOSPITALS REPOSITORY TYPE CODE TESTS RESULT OUT OF REFERENCE UNITS RANGE LAB WBCR(LOINC 4.4 - 11.3 x10E9/L ) WBC 4.5 LAB NRBC(LOINC 0.0-0.0 /100 WBC ) NUCLEATED RBC 0.0 LAB RBCCT(LOIN 4.50 - 5.90 x10E12/L C) Low RBC 4.24 LAB HGB(LOINC) 13.5 - 17.5 g/dL Low HGB 13.2 LAB HCT(LOINC) 41.0 - 52.0 % Low HCT 39.2 LAB MCV(LOINC) 80 - 100 fL MCV 92 LAB MCHC2(LOIN 32.0 - 36.0 g/dL C) MCHC 33.7 LAB PLTCT(LOIN 150 - 450 x10E9/L C) PLT 229 LAB RDWCV(LOIN 11.5 - 14.5 % C) RDW-CV 12.9 Performed By: #### CBC #### [facility] [address] [place] [address] RENAL FUNCTION PANEL Collected: 01/05/2018 Status: F Source: DRIVER 4:44 AM HOSPITALS REPOSITORY TYPE CODE TESTS RESULT OUT OF REFERENCE UNITS RANGE LAB GLU(LOINC) 74 - 99 mg/dL GLUCOSE 88 LAB SOD(LOINC) 136 - 145 mmol/L SODIUM 139 LAB K(LOINC) 3.5 - 5.3 mmol/L POTASSIUM 4.0 LAB CHLOR(LOIN 98 - 107 mmol/L C) CHLORIDE 104 LAB BIC(LOINC) 21 - 32 mmol/L BICARBONATE 25 LAB ANGAP(LOIN 10 - 20 mmol/L C) ANION GAP 14 LAB UREA(LOINC 6 - 23 mg/dL ) UREA NITROGEN 16 LAB CREA(LOINC 0.50 - 1.30 mg/dL ) CREATININE 0.58 LAB GFRFN(LOIN >60 mL/min/1.7 C) 3m2 GFR-NON AM. >60 LAB GFRAA(LOIN >60 mL/min/1.7 C) 3m2 GFR- AM. >60 Result Comment: CALCULATIONS OF ESTIMATED GFR ARE PERFORMED USING THE MDRD STUDY EQUATION FOR THE IDMS-TRACEABLE CREATININE METHODS. CLIN CHEM 2007;53:766-72 LAB CA(LOINC) 8.6 - 10.6 mg/dL CALCIUM 9.2 LAB PHOS(LOINC) 2.5 - 4.9 mg/dL PHOSPHORUS 3.8 Result Comment: The performance characteristics of phosphorus testing in heparinized plasma have been validated by the individual laboratory site where testing is performed. Testing on heparinized plasma is not approved by the FDA; however, such approval is not necessary. LAB ALB(LOINC) 3.4 - 5.0 g/dL ALBUMIN 3.6 Performed By: #### RENAL #### [facility] [address] [place] [address] CLINICAL EVENT Observed: 01/04/2018 Status: UNK Source: UNIVERSITY NOTE-CRITICAL CARE 5:23 PM HOSPITALS REPOSITORY EVALUATION Event: Topic: Critical care evaluation Details: Called to patient's bedside per hospitalist service due to concerns of significantly elevated CIWA score. Briefly, patient is a 37 year old gentleman with history of schizoaffective disorder and history of EtOH withdrawal seizures who presented and was admitted to the hospital very early this morning with general malaise. He was given 2 mg IV ativan in the ED for CiWa of 20. Around 3:30 this afternoon, he was given another 2 mg of additional IV ativan. On assessment, patient is alert, oriented, and appropriate. BP is 123/76 and HR is 80-85. CiWa assessment is as follows: N/v: 1 Tremor: 3 Paroxysmal sweats: 2 Anxiety 3 Agitation: 0 Tactile disturbances: 0 Auditory disturbances: 0 Visual disturbances: 0 Headache: 2 Orientation: 0 Of note, patient does endorse some tactile, auditory, and visual disturbances, as well as confusion, however, on further questioning, patient appears to have a more chronic component of all of these and is able to perform serial additions. Given patient's history of severe withdrawals, would recommend: -Addition of oral Valium 5 mg TID in addition to the symptom triggered Ativan -Continued monitoring on the general medical floor for now -Re-consideration of ICU transfer if Ativan requirements become more frequent than Q4hr. ICU provider team is aware of patient. Please call [phone] with further questions. Electronic Signatures: Ashwini Agosto ( (Fellow)) (Signed 04-Jan-2018 17:46) Authored: Event Last Updated: 04-Jan-2018 17:46 by Ashwini Agosto ( (Fellow)) HISTORY AND PHYSICAL Observed: 01/04/2018 Status: COMPLETED Source: DRIVER 3:26 PM HOSPITALS REPOSITORY History of Present Illness: Admission Reason: sadness and crying HPI: 37 yo male with PMH of schizoaffective, polysubstance abuse, GERD, CBP, etoh abuse with hx of withdrawals, and have been in many detox programs. He presents to ED due to sadness and crying, and states that he wants to get better. At some point he was planning on leaving from ED AMA but he decided to stay due to being homeless now and wants to get better as he stated before. He endorses having his last drink last night. No recent drug use >1 wk. In ED pt complained of auditory hallucinations, guilt, and sadness. Labs unremarkable, VSS on admission. ETOH lvl 300's. UDS negative. PMH: schizoaffective, polysubstance abuse, GERD, CBP, etoh abuse with hx of withdrawals, and have been in many detox programs. PSH: negative Allergies: NKDA Social: etoh states unable to tell but has been drinking beer, liquor, mouth wash. 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 Review of Systems: Constitutional: POSITIVE: Chills Gastrointestinal: POSITIVE: Nausea Neurological: COMMENTS: tremmors Psychiatric: COMMENTS: sadness, hopeless All Other Systems: All other systems reviewed and are negative Objective: Objective Information: T PRBPSpO2 [id number]/8595% Date/Time01/04 14: 14: 14: 14: 14:02 Range(36.3C - 36.5C ) (90 - 122 ) (16 - 18 ) (106 - 150 )/ (63 - 85 ) (95% - 99% ) Weights 01/04 15:02: Weight in kg (Weight (kg)) 88.4 01/04 15:: Weight in lbs ((lbs)) 194.8 01/04 15:: BMI (kg/m2) (BMI (kg/m2)) 24.359 Physical Exam: Constitutional: Well developed, awake/alert/oriented x3, no distress, alert and cooperative. Eyes: EOMI, clear sclera Head/Neck: Neck supple, no apparent injury, No JVD Respiratory/Thorax: CTAB, normal breath sounds with good chest expansion, thorax symmetric, good air movement Cardiovascular: Regular, rate and rhythm, no murmurs, normal S 1and S 2 Gastrointestinal: Nondistended, soft, non-tender, no rebound tenderness or guarding, +BS, Musculoskeletal: ROM intact, no joint swelling, normal strength Extremities: no cyanosis edema, contusions or wounds, no clubbing Neurological: alert and oriented x3, intact senses, no focal neurological deficits. he upper ext tremors; diaphoretic, plethoric. Psychological: depressed, anxious no SI, HI Skin: Warm and dry, no lesions, no rashes Medications: Medications: Continuous Medications No continuous medications are active Scheduled Medications 1. busPIRone: 15 mg Oral Every 8 Hours 2. Folic Acid: 1 mg Oral Daily 3. Gabapentin: 800 mg Oral 3 Times a Day 4. Multivitamin with Minerals: 1 tablet(s) Oral Daily 5. Pantoprazole: 40 mg Oral Daily 6. Thiamine: 100 mg Oral Daily 7. Ziprasidone: 60 mg Oral 2 Times a Day PRN Medications 1. Docusate: 100 mg Oral 2 Times a Day 2. LORazepam Injectable: 0.5 mg IntraVenous Push Every 2 Hours 3. LORazepam Injectable: 1 mg IntraVenous Push Every 2 Hours 4. LORazepam Injectable: 2 mg IntraVenous Push Every 2 Hours 5. traZODone: 50 mg Oral At Bedtime Recent Lab Results: Results: I have reviewed these laboratory results: Drug Screen, Urine 04-Jan-2018 04:40:00 ResultValue Comments. SEE BELOW Drug screen results are presumptive and should not be used to assess compliance with prescribed medication. Contact the performing [facility] laboratory to add-on definitive confirmatory testing if clinically indicated. . Toxicology scre Amphetamine Screen, Urine PRESUMPTIVE NEGATIVE CUTOFF LEVEL: 500 NG/ML Cross-reactivity has been reported with high concentrations of the following drugs: buproprion, chloroquine, chlorpromazine, ephedrine, mephentermine, fenfluramine, phentermine, phenylpropanolamine Barbiturate Screen, Urine PRESUMPTIVE NEGATIVE PRESUMPTIVE NEGATIVE CUTOFF LEVEL: 200 NG/ML Benzodiazepine Screen, Urine PRESUMPTIVE NEGATIVE PRESUMPTIVE NEGATIVE CUTOFF LEVEL: 200 NG/ML Cannabinoid Screen, Urine PRESUMPTIVE NEGATIVE PRESUMPTIVE NEGATIVE CUTOFF LEVEL: 50 NG/ML Cocaine Metabolite Screen, Urine PRESUMPTIVE NEGATIVE PRESUMPTIVE NEGATIVE CUTOFF LEVEL: 150 NG/ML Methadone Screen, Urine PRESUMPTIVE NEGATIVE CUTOFF LEVEL: 150 NG/ML The metabolite V-dufun-hhzqabqlqplpcm (LAAM) is not detected by this method in concentrations that would be found in the urine of patients on LAAM therapy. Opiate Screen, Urine PRESUMPTIVE NEGATIVE CUTOFF LEVEL: 300 NG/ML The opiate screen does not detect fentanyl, meperidine, or tramadol. Oxycodone is not consistently detected (refer to Oxycodone Screen, Urine result). Oxycodone Screen, Urine (item) PRESUMPTIVE NEGATIVE CUTOFF LEVEL: 100 NG/ML This test will accurately detect both oxycodone and oxymorphone. PCP Screen, Urine PRESUMPTIVE NEGATIVE CUTOFF LEVEL: 25 NG/ML Cross-reactivity has been reported with dextromethorphan. Urinalysis 04-Jan-2018 04:40:00 ResultValue Color, Urine STRAW Reference Range: STRAW,YELLOW Appearance, Urine CLEAR Specific [place], Urine 1.014 pH, Urine 6.0 Protein, Urine NEGATIVE Glucose, Urine NEGATIVE Blood, Urine NEGATIVE Ketones, Urine NEGATIVE Bilirubin, Urine NEGATIVE Urobilinogen, Urine <2.0 Nitrite, Urine NEGATIVE Leukocyte Esterase, Urine NEGATIVE Complete Blood Count + Differential 04-Jan-2018 04:34:00 ResultValue White Blood Cell Count 5.5 Nucleated Erythrocyte Count 0.0 Red Blood Cell Count 4.00 L HGB 12.9 L HCT 36.9 L MCV 92 MCHC 35.0 PLT 254 RDW-CV 13.2 Neutrophil % 50.0 Immature Granulocytes % 0.4 Lymphocyte % 40.3 Monocyte % 7.3 Eosinophil % 1.1 Basophil % 0.9 Neutrophil Count 2.74 Lymphocyte Count 2.21 Monocyte Count 0.40 Eosinophil Count 0.06 Basophil Count 0.05 Comprehensive Metabolic Panel 04-Jan-2018 04:34:00 ResultValue Glucose, Serum 92 NA 141 K 4.0 CL 103 Bicarbonate, Serum 27 Anion Gap, Serum 15 BUN 14 CREAT 0.57 GFR-Non >60 GFR- >60 Calcium, Serum 8.8 ALB 3.9 ALKP 142 H T Pro 6.3 L T Bili 0.2 Alanine Aminotransferase, Serum 12 Aspartate Transaminase, Serum 18 Coagulation Screen 04-Jan-2018 04:34:00 ResultValue Prothrombin Time, Plasma 9.5 L International Normalized Ratio, Plasma 0.9 Activated Partial Thromboplastin Time 26 Drug Screen, Blood 04-Jan-2018 04:34:00 ResultValue Acetaminophen Level, Serum <10.0 Reference Range: >5.0 POSITIVE Barbiturate Screen, Serum NEGATIVE Phenytoin Level, Serum <2.5 Reference Range: >5.0 POSITIVE Theophylline Level, Serum <2.5 Reference Range: >5.0 POSITIVE Tricyclics, Serum NEGATIVE Acetylsalicylic Acid Level, Serum <3 Reference Range: >2 POSITIVE Alcohol, Drug Screen, Blood 343 A Magnesium, Serum 04-Jan-2018 04:34:00 ResultValue Magnesium, Serum 2.08 Phosphorus, Serum 04-Jan-2018 04:34:00 ResultValue Phosphorus, Serum 3.7 Thyroid Stimulating Hormone, Serum 04-Jan-2018 04:34:00 ResultValue Thyroid Stimulating Hormone, Serum 1.56 Assessment and Plan: Problem List: Admitting Dx: Alcohol withdrawal hallucinosis: Additional Dx: Polysubstance abuse: Chronic back pain: GERD (gastroesophageal reflux disease): Schizoaffective disorder: Assessment: 37 yo male with PMH of schizoaffective, polysubstance abuse, GERD, CBP, etoh abuse with hx of withdrawals, and have been in many detox programs. He presents to ED due to sadness and crying, and states that he wants to get better. At some point he was planning on leaving from ED AMA but he decided to stay due to being homeless now and wants to get better as he stated before. He endorses having his last drink last night. No recent drug use >1 wk. Patient admitted for ETOH withdrawals. *Alcohol withdrawals -ETOH lvl 300's -CIWA and ativan -CIWA score earlier today 4, later afternoon 18, code white called for assessment for MICU likely will need transfer for higher level of care/precedex -Cardiac monitoring -MV , folate, thiamine *BH hx schizoaffective, not been taking ziprasidone and trazodone, he ran out of the first one and the second he didn't call prescription- he uses for isnomnia as needed. - continue on buspirone, resume ziprasidone, gabapentin, folic acid, thiamine, MV *GERD continue on PPI *CBP continue on gabapentin DVT ppx: scds, miblization, if bed rest required will add hep subcutaneous FULL CODE IVF NS at 100 cc/h Signatures/Attestation/Certification: Provider/Team Contact Info-Pager NumberLabs and ancillary reviewed 8am-8pm Hosp C [phone] Attending Provider Inpatient Certification StatementI certify this patients need for inpatient care based on the above documentation including; the order to admit as inpatient, the anticipated length of stay, diagnosis, problem list and plan of care, and discharge plan. Electronic Signatures: Katie Tay) (Signed 04-Jan-2018 16:17) Authored: History of Present Illness, Comorbidities, Family History, Social History, Allergies, Medications Prior to Admission, Review of Systems, Objective, Assessment and Plan, Signatures/Attestation/Certification Last Updated: 04-Jan-2018 16:17 by Katie Tay) PATIENT PROFILE - Observed: 01/04/2018 Status: UNK Source: DRIVER ADULT V2 3:02 PM HOSPITALS REPOSITORY Profile: Initial Info: How to be Addressedkurt Spoken Language PreferredEnglish (1) Are you currently using the Personal Electronic Health Record or One Touch EMRno Are you interested in learning more about [facility] for the management of your healthdeclined Stated Reason for Admissionalcohol withdrawal Arrived Fromemergency department Employment Statusdisabled(1) Patient Belongingsremains with patient Medications Brought to Hospitalno General Health: Weight in kg88.4 kilogram(s) Weight in tss865.8 pound(s) Height in feet6 feet Height in inches3 inch(es) Height in cm190.5 centimeter(s) BMI (kg/m2)24.359 square meter Weight Methodactual (measured) Scale Typebed Height Methodstated [facility] Based Care: How would you like to participate in your careI don't care What is the number one concern for you during this hospitalizationto feel better What is the most important thing we can do to support you during this hospitalizationnothing Is there anything we need to know to best care for youno Substance: Current or Former Substance Use never: e-Cigarette/Vaping YES: Cigarette/Tobacco, Alcohol, Street Drugs Tobacco Cessation Education (provide if tobacco use within the last 12 mos) patient declined Alcohol Use Statuspast alcohol (1) Alcohol Amount7-9 drinks (1) Alcohol Frequencydaily (1) Alcohol Typeliquor; wine; beer(1) Method of Quittingdetox unit(1) Street Drug/Inhalant/ Medication Use Statuscurrent street drug/inhalant/medication abuse (1) Street Drug/Medication/ Inhalant Typemarijuana(1) Street Drug/Medication/ Inhalant Routesmoking(1) Frequency of Street Drug/Medication/Inhalant Use2-4 times/month (1) Health Mgmt: Symptoms/Conditions Managed at [facility] Relationship/Environ: Primary Source of Support/Comfortparent Lives Withfriend(s) Living Arrangementsno permanent address Resource/Environmental Concernsfinancial; home accessibility Anticipated Transition Toshelter Services Anticipated at Transitionrehabilitation services; education services Significant IndicatorsComplete Information Review: Allergies, Home Meds and Significant Events have been Reviewed and Verified with Patient/Familyyes ALLERGY, INTOLERANCE, ADVERSE EVENT: Allergies: morphine: Drug, Hives/Urticaria, Active Horse: Environment, Swelling/Edema, Anaphylaxis, Facial Swelling, Active opiates: Drug Category, Unknown, Active narcotic analgesics: Drug Category, Unknown, Active Electronic Signatures: Cecilia Burrows (SUSANA) (Signed 04-Jan-2018 15:07) Authored: Rosy, Additional Information Last Updated: 04-Jan-2018 15:07 by Cecilia Burrows (SUSANA) References: 1. Data Referenced From Patient Profile - Adult v2 10/30/2017 1:44 PM ADMISSION RISK SCREEN Observed: 01/04/2018 Status: UNK Source: UNIVERSITY - ADULT 1:53 PM HOSPITALS REPOSITORY Allergies: Allergies: morphine: Hives/Urticaria Horse: Swelling/Edema, Anaphylaxis, Facial Swelling opiates: Unknown narcotic analgesics: Unknown Patient Verification: New W ID Band Applied in my Departmentno Type of ID Patient is WearingW wristband, but not applied here Patient Transferred from Other Facility ([facility], [facility],etc)no Patient Identity Verified Bypatient ID Band FULL Name, include Middle, spelling matches patient's ID used for verificationyes ID Band Matches Patient ID used for Verficationyes ID Band MRN Matches EMR MRNyes Advance Directive: Advance Directive Medicalno Advance Directive Information Givenpatient/family declined Falls Screen: Type of Assessmentadmission High Risk Factorssymptoms due to meds (sedatives, hypnotics, new diuretics and new laxatives) Risk for Injury Associated with Fallnone Fall Risk Conclusionhigh falls risk with low risk for associated injury [place] Safety InterventionsWDL *orient to call system *instruct to call for assistance before getting out of bed *non-slip footwear when patient is out of bed *call cardona in reach *personal items and telephone in reach *physically safe environment (no spills or clutter) *bed in lowest position with wheels locked *appropriate side rails in place *room/bathroom lighting operational, light cord in reach *appropriate signage on door Fall and Injury Risk Interventionssupervised toileting (mandatory for all high risk patients), exit (bed/chair) alarms (mandatory for all high risk patients), educate pt/family, monitor med side effects, consult Pharmacy Family Violence Screen: Are you or have you been threatened or abused physically, emotionally, or sexually by anyoneno Do you feel UNSAFE going back to the place where you are livingno Clinical assessment: Are there any apparent signs of injuries/behaviors that could be related to abuse/neglectno Social Service Consult for abuse/neglect needed this visitno Functional screen: Functional Screen: In the recent/past 2-4 weeks, patient or family have noticedno issues that require a rehabilitation consult at this time Learning Assessment (Patient): Patient is Able to be Assessed for Learningyes Factors Influencing Readiness to Learnacuteness of illness Factors that Impact Ability to Learnnone Devices/Methods Used to Communicatenone Learning Preferencesverbal instruction Cultural Considerationsnone Developmental Considerationsnone Orthodox Considerationsnone Learning Assessment (Other Learner): Other learner availableno Suicide/Depression Screen: During the past month, have you often been bothered by feeling down, depressed or hopelessyes (1) During the past month, have you often had little interest or pleasure in doing thingsyes (1) Have you had any thoughts of harming yourselfno (1) Have you had any thoughts of harming anyone elseno (1) Adult Nutrition Screen: Have you recently lost weight without tryingno Have you been eating poorly because of a decreased appetiteno MST Score0 RiskMST = 0 or 1 Not at risk. Eating well with little or no weight loss Nutrition Consult needed this visitno Can Patient Participate in Room Serviceyes Patient requires Paper Dishes/Plastic Utensilsno Pain Screen: Pain Scalenumerical 0-10 Pain Scale Educationteaching provided Current Pain Level8 = Severe Acceptable Pain Level0 = None Expression of Pain (nonverbal)verbalization Chronic Painno Spiritual Screen: Are there any cultural, spiritual, anglican practices/values/needs that are important for us to knowno CAGE: Is this an injured patient at a Trauma Center ([facility]): no (1) Vaccinations: Vaccination - Influenza Vaccination Screen: Is it flu season (between and )Yes Screening for identified contraindications to influenza vaccinationpatient already received vaccine this season Vaccination - Pneumonia Vaccination Screen: Patient has received a previous pneumonia vaccine:no/unknown... Immunocompetent persons with underlying chronic conditions or reside in senior living care facilitiesalcoholism Pneumonia vaccine NOT indicated due to:patient/caregiver refusal at this time Malik: Skin - Malik Scale: Malik: Sensory Perception (response to environment)(4) no impairment Malik: Moisture (degree skin exposed to moisture)(4) rarely moist Malik: Activity (ability to walk)(4) walks frequently Malik: Mobility (amount/control of body movement)(4) no limitation Malik: Nutrition (quality of food intake)(3) adequate Malik: Friction and Shear(3) no apparent problem Malik: Score22 Significant Indicatiors: Significant Indicators: Complete Pressure Injury: Pressure Injury Present on Admissionno Electronic Signatures: Cecilia Burrows) (Signed 04-Jan-2018 13:57) Authored: Admission Risk Screens, Vaccinations, Malik, Pressure Injury Last Updated: 04-Jan-2018 13:57 by Cecilia Burrows (SUSANA) References: 1. Data Referenced From Risk Screen - Adult Emergency 01/04/2018 6:06 AM DISCHARGE PLANNING Observed: 01/04/2018 Status: UNK Source: UNIVERSITY NOTE 12:26 PM HOSPITALS REPOSITORY Patient Learning: Factors that Impact Ability to Learnnone(1) Discharge Planning: Discharge Plannin01-04-18, 1227: Caust[place] Room Attendant Note: The patient is a 37y/o male who is homeless, he does not have any family support. The patient is not currently active with any home care. The patient does not have any anglican, cultural, or dietary concerns. He was admitted with complaint of sadness and crying times 3 days, denies SI or HI. The patient is not on home oxygen or CPAP machine. Per the patient he is independent with ambulation and with ADL's. He does not use any DME for ambulation. He is not diabetic. The patient is not on hemodialysis. The patient has insurance. He does not have any financial concerns. His pharmacy is [facility] in [place]. The patient's primary care doctor is Jose R Alonzo. He will need a ride to a homeless fci on discharge. The patient will be discharge with no home care needs. consult for shelters. Josue Gonzalez [facility] Caustic Room Attendant, [id number]. 01/04/2018 Admission Note. 1525 Patient admitted from ER at 1030. Was living with girlfriend but she just put him out. So now patient is homeless. Etoh level was 343 Here for alcohol withdrawl. Social service consulted for homelessness. Cecilia Burrows RN Electronic Signatures: Josue Gonzalez (ADV CLIN N) (Signed 04-Jan-2018 12:53) Authored: Discharge Planning Note Cecilia Burrows (SUSANA) (Signed 04-Jan-2018 16:00) Authored: Discharge Planning Note Last Updated: 04-Jan-2018 16:00 by Cecilia Burrows (SUSANA) References: 1. Data Referenced From Risk Screen - Adult Emergency 01/04/2018 6:06 AM RISK SCREEN - ADULT Observed: 01/04/2018 Status: UNK Source: UNIVERSITY EMERGENCY 6:06 AM HOSPITALS REPOSITORY Preferred Language: Preferred Language: Preferred Language for Discussing Health Care (patient/designee)Sudanese Advanced Directives: Advance Directive Medicalyes Family Violence Adult: Abuse Screen: Are you or have you been threatened or abused physically, emotionally, or sexually by anyoneno Suicide / Depression: Suicide/Depression Screen: During the past month, have you often been bothered by feeling down, depressed or hopelessyes During the past month, have you often had little interest or pleasure in doing thingsyes Have you had any thoughts of harming yourselfno (1) Have you had any thoughts of harming anyone elseno (1) Learning Assessment (Patient): Learning Assessment (Patient): Patient is Able to be Assessed for Learningyes Factors Influencing Readiness to Learnacuteness of illness; anxiety; depression; interest in learning; motivation to learn Factors that Impact Ability to Learnnone Devices/Methods Used to Communicatenone Learning Preferencesverbal instruction; written material Cultural Considerationsnone Developmental Considerationsnone Orthodox Considerationsnone Learning Assessment (Other Learner): Learning Assessment (Other Learner): Other learner availableno Fall Risk Adult: Falls Risk: Altered Mobilitynone Change in Mental Statusno Relevant Medical History / Diagnosisunknown Fall Historyunknown Altered Eliminationno Medications that Might Alter: equilibrium, cognitive judgement or severity of injurysedatives Sensory Deficitno UNABLE or UNWILLING to Follow Directionsno Patient Identified as a Falls Riskno Provide Rationale not identified as Falls Riskno risk factors identified Pressure Injury: Pressure Injury Present on Admissionno Respiratory / Cough /TB: ED / TB / Cough / Respiratory Screen: Do you have a coughno Smoking/Social History (Required age 13 or older): Smoking Status: current every day smoker Alcohol Use: daily Drug Use: history of abuse Admission Risk Screen: Significant IndicatorsComplete CAGE: CAGE: Is this an injured patient at a Trauma Center ([facility]): no Electronic Signatures: Daniela Cronin (GARY) (Signed 04-Jan-2018 06:08) Authored: Preferred Language, Advanced Directives, Family Violence Adult, Suicide / Depression, Learning Assessment (Patient), Learning Assessment (Other Learner), Fall Risk Adult, Pressure Injury, Respiratory / Cough /TB, Smoking/Social History (Required age 13 or older), CAGE Last Updated: 04-Jan-2018 06:08 by Daniela Cronin (GARY) References: 1. Data Referenced From Triage - ED 01/04/2018 2:30 AM URINALYSIS Collected: 01/04/2018 Status: F Source: [facility] 4:[facility] REPOSITORY TYPE CODE TESTS RESULT OUT OF REFERENCE UNITS RANGE LAB COLU(LOINC STRAW,YELLOW ) COLOR STRAW LAB APPRU(LOIN CLEAR C) APPEARANCE CLEAR LAB SPGRU(LOIN 1.005 - 1.035 C) SPECIFIC GRAVITY 1.014 LAB NESTOR(LOINC) 5.0 - 8.0 pH 6.0 LAB PROTU(LOIN NEGATIVE mg/dL C) PROTEIN NEGATIVE LAB GLUCU(LOIN NEGATIVE mg/dL C) GLUCOSE NEGATIVE LAB BLDU(LOINC NEGATIVE ) BLOOD NEGATIVE LAB KETU(LOINC NEGATIVE mg/dL ) KETONES NEGATIVE LAB BILIU(LOIN NEGATIVE C) BILIRUBIN NEGATIVE LAB UROU2(LOIN 0.0 - 1.9 mg/dL C) UROBILINOGEN <2.0 LAB NITRU(LOIN NEGATIVE C) NITRITE NEGATIVE LAB LEUKU(LOIN NEGATIVE C) LEUKOCYTE ESTERASE NEGATIVE Performed By: #### UA #### [facility] [address] [place] [address] DRUG SCREEN,URINE Collected: 01/04/2018 Status: F Source: [address] REPOSITORY TYPE CODE TESTS RESULT OUT OF REFERENCE UNITS RANGE LAB DRCOM(LOINC ) DRUG SCREEN SEE BELOW COMMENT Result Comment: Drug screen results are presumptive and should not be used to assess compliance with prescribed medication. Contact the performing [facility] laboratory to add-on definitive confirmatory testing if clinically indicated. . Toxicology screening results are reported qualitatively. The concentration must be greater than or equal to the cutoff to be reported as positive. The concentration at which the screening test can detect an individual drug or metabolite varies. The absence of expected drug(s) and/or drug metabolite(s) may indicate non-compliance, inappropriate timing of specimen collection relative to drug administration, poor drug absorption, diluted/adulterated urine, or limitations of testing. For medical purposes only; not valid for forensic use. . Interpretive questions should be directed to the laboratory medical directors. LAB AMPH(LOINC) NEGATIVE AMPHETAMINE PRESUMPTIVE SCREEN,U NEGATIVE Result Comment: CUTOFF LEVEL: 500 NG/ML Cross-reactivity has been reported with high concentrations of the following drugs: buproprion, chloroquine, chlorpromazine, ephedrine, mephentermine, fenfluramine, phentermine, phenylpropanolamine, pseudoephedrine, and propranolol. LAB ARIANNA(LOINC) NEGATIVE BARBITURATES PRESUMPTIVE SCREEN,U NEGATIVE Result Comment: CUTOFF LEVEL: 200 NG/ML LAB BENZO(LOINC) NEGATIVE BENZODIAZEPINES SCREEN,U PRESUMPTIVE NEGATIVE Result Comment: CUTOFF LEVEL: 200 NG/ML LAB SHIRLEY(LOINC) NEGATIVE CANNABINOIDS PRESUMPTIVE SCREEN,U NEGATIVE Result Comment: CUTOFF LEVEL: 50 NG/ML LAB COCAI(LOINC) NEGATIVE COCAINE PRESUMPTIVE METABOLITE NEGATIVE SCREEN,U Result Comment: CUTOFF LEVEL: 150 NG/ML LAB METHD(LOINC) NEGATIVE PRESUMPTIVE METHADONE NEGATIVE SCREEN,U Result Comment: CUTOFF LEVEL: 150 NG/ML The metabolite Y-xtgfi-slxjcgeoexwync (LAAM) is not detected by this method in concentrations that would be found in the urine of patients on LAAM therapy. LAB OPIAT(LOINC) NEGATIVE PRESUMPTIVE OPIATES NEGATIVE SCREEN,U Result Comment: CUTOFF LEVEL: 300 NG/ML The opiate screen does not detect fentanyl, meperidine, or tramadol. Oxycodone is not consistently detected (refer to Oxycodone Screen, Urine result). LAB OXYS2(LOINC) NEGATIVE PRESUMPTIVE OXYCODONE NEGATIVE SCREEN,U Result Comment: CUTOFF LEVEL: 100 NG/ML This test will accurately detect both oxycodone and oxymorphone. LAB PCP(LOINC) NEGATIVE PCP PRESUMPTIVE SCREEN,U NEGATIVE Result Comment: CUTOFF LEVEL: 25 NG/ML Cross-reactivity has been reported with dextromethorphan. Performed By: #### DRUG3 #### [facility] [address] [place] [address] ALCOHOL Collected: 01/04/2018 Status: CANCELLED Source: DRIVER 4:[address] [place] [address] REPOSITORY Order Comment: TEST ALCOHOL WAS CANCELLED, 01/04/2018 04:35 RBS update.. TYPE CODE TESTS RESULT OUT OF REFERENCE UNITS RANGE LAB ALC(LOINC) ALCOHOL Canceled Result Comment: FOR MEDICAL USE ONLY. Performed By: #### ALC #### [facility] [address] [place] [address] CBC AND DIFFERENTIAL Collected: 01/04/2018 Status: F Source: DRIVER 4:34 [facility] REPOSITORY TYPE CODE TESTS RESULT OUT OF REFERENCE UNITS RANGE LAB WBCR(LOINC 4.4 - 11.3 x10E9/L ) WBC 5.5 LAB NRBC(LOINC 0.0-0.0 /100 WBC ) NUCLEATED RBC 0.0 LAB RBCCT(LOIN 4.50 - 5.90 x10E12/L C) Low RBC 4.00 LAB HGB(LOINC) 13.5 - 17.5 g/dL Low HGB 12.9 LAB HCT(LOINC) 41.0 - 52.0 % Low HCT 36.9 LAB MCV(LOINC) 80 - 100 fL MCV 92 LAB MCHC2(LOIN 32.0 - 36.0 g/dL C) MCHC 35.0 LAB PLTCT(LOIN 150 - 450 x10E9/L C) PLT 254 LAB RDWCV(LOIN 11.5 - 14.5 % C) RDW-CV 13.2 LAB NEUT(LOINC 40.0 - 80.0 % ) % NEUTROPHIL 50.0 LAB IG(LOINC) 0.0 - 0.9 % % AUTOMATED 0.4 IMMATURE GRAN Result Comment: Percent differential counts (%) should be interpreted in the context of the absolute cell counts (cells/L). LAB LYMPH(LOINC) 13.0 - 44.0 % % LYMPHOCYTE 40.3 LAB MONO(LOINC) 2.0 - 10.0 % % MONOCYTE 7.3 LAB EOS(LOINC) 0.0 - 6.0 % % EOSINOPHIL 1.1 LAB BASO(LOINC) 0.0 - 2.0 % % BASOPHIL 0.9 LAB #NEUT(LOINC) 1.20 - 7.70 x10E9/L NEUTROPHIL 2.74 LAB #LYMP(LOINC) 1.20 - 4.80 x10E9/L LYMPHOCYTE 2.21 LAB #MONO(LOINC) 0.10 - 1.00 x10E9/L MONOCYTE 0.40 LAB #EOS(LOINC) 0.00 - 0.70 x10E9/L EOSINOPHIL 0.06 LAB #BASO(LOINC) 0.00 - 0.10 x10E9/L BASOPHIL 0.05 Performed By: #### CBCDF #### [facility] [address] [place] [address] DRUG SCREEN, BLOOD Collected: 01/04/2018 Status: F Source: [facility] 4:[facility] REPOSITORY TYPE CODE TESTS RESULT OUT OF RANGE REFERENCE UNITS LAB ACETT(KAREN >5.0 POSITIVE mg/L NC) ACETAMINOPHEN <10.0 LAB BARBT(KAREN ? NC) SERUM BARBITURATES NEGATIVE LAB PHEYT(KAREN >5.0 POSITIVE ug/mL NC) PHENYTOIN <2.5 LAB THEOT(KAREN >5.0 POSITIVE ug/mL NC) THEOPHYLLINE <2.5 LAB TRICT(KAREN ? NC) TRICYCLICS, SERUM NEGATIVE LAB SALT(LOIN >2 POSITIVE mg/dL C) SALICYLATE <3 LAB ALCT(LOIN mg/dL C) ALCOHOL Abnormal 343 Result Comment: FOR MEDICAL USE ONLY. REF VALUES < 10 Performed By: #### DRUGB #### [facility] [address] [place] [address] COAGULATION SCREEN Collected: 01/04/2018 Status: F Source: [place] [address]:[address] [place] [address] REPOSITORY TYPE CODE TESTS RESULT OUT OF REFERENCE UNITS RANGE LAB PT(LOINC) 9.8 - 12.7 sec Low PROTHROMBIN TIME 9.5 LAB INR(LOINC) 0.9 - 1.1 PT, INR 0.9 LAB APTT(LOINC 25 - 36 sec ) APTT 26 Result Comment: THE APTT IS NO LONGER USED FOR MONITORING UNFRACTIONATED HEPARIN THERAPY. FOR MONITORING HEPARIN THERAPY, USE THE HEPARIN ASSAY. Performed By: #### COAGS #### [facility] [address] [place] [address] MAGNESIUM Collected: 01/04/2018 Status: F Source: [address] REPOSITORY TYPE CODE TESTS RESULT OUT OF REFERENCE UNITS RANGE LAB MG(LOINC) 1.60 - 2.40 mg/dL MAGNESIUM 2.08 Performed By: #### MG #### [facility] [address] [facility] [place] [address] COMPREHENSIVE PANEL Collected: 01/04/2018 Status: F Source: [address] REPOSITORY TYPE CODE TESTS RESULT OUT OF REFERENCE UNITS RANGE LAB GLU(LOINC) 74 - 99 mg/dL GLUCOSE 92 LAB SOD(LOINC) 136 - 145 mmol/L SODIUM 141 LAB K(LOINC) 3.5 - 5.3 mmol/L POTASSIUM 4.0 LAB CHLOR(LOIN 98 - 107 mmol/L C) CHLORIDE 103 LAB BIC(LOINC) 21 - 32 mmol/L BICARBONATE 27 LAB ANGAP(LOIN 10 - 20 mmol/L C) ANION GAP 15 LAB UREA(LOINC 6 - 23 mg/dL ) UREA NITROGEN 14 LAB CREA(LOINC 0.50 - 1.30 mg/dL ) CREATININE 0.57 LAB GFRFN(LOIN >60 mL/min/1.7 C) 3m2 GFR-NON AM. >60 LAB GFRAA(LOIN >60 mL/min/1.7 C) 3m2 GFR- AM. >60 Result Comment: CALCULATIONS OF ESTIMATED GFR ARE PERFORMED USING THE MDRD STUDY EQUATION FOR THE IDMS-TRACEABLE CREATININE METHODS. CLIN CHEM 2007;53:766-72 LAB CA(LOINC) 8.6 - 10.6 mg/dL CALCIUM 8.8 LAB ALB(LOINC) 3.4 - 5.0 g/dL ALBUMIN 3.9 LAB AP(LOINC) 33 - 120 U/L ALKALINE High PHOSPHATASE 142 LAB TP(LOINC) 6.4 - 8.2 g/dL TOTAL PROTEIN Low 6.3 LAB AST(LOINC) 9 - 39 U/L AST 18 LAB TBILI(LOINC) 0.0 - 1.2 mg/dL BILIRUBIN,TOTAL 0.2 LAB ALT(LOINC) 10 - 52 U/L ALT 12 Result Comment: Patients treated with Sulfasalazine may generate falsely decreased results for ALT. Performed By: #### CMP #### [facility] [address] [place] [address] PHOSPHORUS Collected: 01/04/2018 Status: F Source: [place] [address]:[address] [place] [address] REPOSITORY TYPE CODE TESTS RESULT OUT OF REFERENCE UNITS RANGE LAB PHOS(LOINC 2.5 - 4.9 mg/dL ) PHOSPHORUS 3.7 Result Comment: The performance characteristics of phosphorus testing in heparinized plasma have been validated by the individual laboratory site where testing is performed. Testing on heparinized plasma is not approved by the FDA; however, such approval is not necessary. Performed By: #### PHOS #### [facility] [address] [place] [address] TSH Collected: 01/04/2018 Status: F Source: DRIVER 4:[address] [place] [address] REPOSITORY TYPE CODE TESTS RESULT OUT OF RANGE REFERENCE UNITS LAB TSH2(LOINC) 0.44 - 3.98 mIU/L TSH 1.56 Result Comment: TSH testing is performed using different testing methodology at [facility] than at other [facility]. Direct result comparisons should only be made within the same method. . Patients receiving more than 5 mg/day of biotin may have interference in test results. A sample should be taken no sooner than eight hours after previous dose. Contact [phone] for additional information. Performed By: #### TSH2 #### [facility] [address] [place] [address] PROVIDER NOTE - ED Observed: 01/04/2018 Status: COMPLETED Source: [facility]2 2:47 [facility] REPOSITORY Provider Note - ED v2: Chart Review: ED NOTES ED NOTES: CC: housing resources HPI: 37M with history of schizoaffective disorder and polysubstance abuse and multiple admissions for alcohol withdrawal (last 10/22-10/24) where he was treated according to the CIWA protocol and left AMA on day #2. Today he presents with complaint of sadness and crying for the last 3 days. He denies any SI or HI. He states that he is homeless now because the woman he was staying with kicked him out as he has other girlfriends and will not allow him to stay unless he pledges exclusivity to her. He presents with another girlfriend and reports that he isn't willing to break up with either of them. He requests resources to find housing. Upon review of systems the patient endorses auditory hallucinations, deep feeling of guilt and sadness. He denies SI or HI. He does state that he desires to quit drinking because he sees that it is harming his relationships. The patient presents to emergency department tachycardic and hypertensive. CIWA score is between CIWA 15 and 18. He was immediately treated with lorazepam 2 mg orally. ROS: A review of systems was performed and is incorporated into the HPI. Med Hx: Reviewed. Schizoaffective disorder non-med compliant Surg Hx: Reviewed. Home Rx: Reviewed. Allergies: Reviewed. Soc Hx: Reviewed. Heavy alcohol abuse, polysubstance abuse Fam Hx: Reviewed. PHYSICAL EXAM: Vital Signs: As documented in the triage note and EMR and were reviewed. General: A&O x 4. Tearful. Sad and often threatening to leave AMA. Slightly agitated however appropriate behavior. Restless. Skin: Moist and slightly diaphoretic. Head: Normocephalic. Atraumatic. Eyes: PERRLA. EOMI. No scleral icterus. Ears: Gross auditory acuity intact. No discharge. Mouth/Throat: MMM. No erythema, exudates or swelling. Neck: ROM intact. Trachea is midline. Normal thyroid size. Chest/Breast: Atraumatic. Symmetrical. Nontender. Heart: tachycardic. S1/S2 present. No M/R/G. No JVD. Lungs: Normal respiratory effort. CTA with equal rise bilaterally. No W/R/R. Abdomen: SNTND. BS x 4. No peritoneal signs. /RECTAL: Not examined. MSK/Extremities: Normal muscle bulk. 5/5 strength x 4. Normal joint ROM. No obvious deformities. NEURO: CN II - XII intact. No FND observed. Speech fluent. Answers questions appropriately. No gait or balance disturbances. PSYCH: Patient states that he may or may not be having auditory or visual hallucinations. Labs: Ordered per EMR. Significant values noted in ED COURSE / MDM. Imaging: Ordered per EMR. Radiologys impression reviewed prior to disposition. ED COURSE / MDM: This is a 37M with schizoaffective disorder, poly substance abuse and recurrent admission of Etoh WD. He presents today for homelessness but upon review of systems and exam has a CIWA of upto18. Patient was given 2mg lorazepam orally. The patient originally wanted to leave AMA but was convinced to stay as he reports wanting to quit etoh. Labs and continued CIWA with IV lorazepam was ordered. Reevaluation shows a decreased CIWA score of 14. He was admitted to medicine telemetry for alcohol withdrawal, schizophrenic decompensation, depression and social resources to obtain housing. The patient was signed out to the next resident on duty in stable condition. Impression: etoh withdrawal, depression, homeless Disposition: tele Discussed with: Daniela Herbert MD, MPH Emergency Medicine, PGY-2 [facility] Patient case was discussed with the attending physician, who also saw and evaluated the patient. Patient and/or patient small business sales representative was counseled regarding contents of ED COURSE / MDM, impression and plan. All questions answered. If the patient was still in the ED as a patient when my ED shift ended the patient was turned over to the oncoming resident or attending physician. Portions of the note may have been dictated by speech recognition. HISTORY OF PRESENTING ILLNESS ZAINA was seen by me at 04-Jan-2018 02:27 for a chief complaint of other(1). Other complaints include: patient states he drinks several drinks a day and states he is going through withdrawal. patient states he feels more depressed as well. denies SI/HI(1). Triage Information: Most recent Vital Sign Value Date Temp (F): 97.3 01-04-2018 02:30 Temp (C): 36.3 01-04-2018 02:30 Heart Rate (beats/min): 122 01-04-2018 02:30 Respirations (breaths/min): 18 01-04-2018 02:30 SpO2 (%): 99 01-04-2018 02:30 BP Systolic (mm Hg): 150 01-04-2018 02:30 BP Diastolic (mm Hg): 83 01-04-2018 02:30 PAST MEDICAL HISTORY ATTESTATION: I have reviewed and confirmed nurse's/medic's notes for patient's medications, allergies, medical history, and surgical history ALLERGIES/INTOLERANCES: Allergy Allergen: morphine Type: Drug Reaction: Hives/Urticaria Allergen: Horse Type: Environment Reaction: Swelling/Edema Anaphylaxis Facial Swelling Allergen: opiates Type: Drug Category Reaction: Unknown Allergen: narcotic analgesics Type: Drug Category Reaction: Unknown HEALTH HISTORY: Medical History Name:Schizoaffective disorder Code:F25.9 Name:Alcohol addiction Code:F10.20 Name:Overdose of antipsychotic Code:T43.501A Name:Overdose of antidepressant Code:T43.201A Name:Alcohol dependence with uncomplicated withdrawal Code:F10.230 OUTPATIENT MEDICATIONS: Home Medications Review Status for Reconciliation: Complete Med Status: Patient Currently Takes Medications Drug Name: gabapentin 400 mg oral capsule Instructions: 2 cap(s) orally 3 times a day Drug Name: busPIRone 15 mg oral tablet Instructions: 1 tab(s) orally every 8 hours Drug Name: folic acid 1 mg oral tablet Instructions: 1 tab(s) orally once a day Drug Name: traZODone 100 mg oral tablet Instructions: 1 tab(s) orally once a day (at bedtime) PRN Drug Name: omeprazole 40 mg oral delayed release capsule Instructions: 1 cap(s) orally once a day Drug Name: thiamine 100 mg oral tablet Instructions: 1 tab(s) orally once a day Drug Name: Multiple Vitamins with Minerals oral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 Discharge Information: and Continuing Care: Discharge Instructions: Activity: activity as tolerated. Nutrition/Diet: regular Additional Orders: Additional Instructions: advised to stay away from alcohol Follow Up Appointments: Follow-Up Appointment 01: Physician/Dept/Service: pcp Call to Schedule in: 2 weeks Discharge Medications: Home Medication gabapentin 400 mg oral capsule - 2 cap(s) orally 3 times a day busPIRone 15 mg oral tablet - 1 tab(s) orally every 8 hours folic acid 1 mg oral tablet - 1 tab(s) orally once a day traZODone 100 mg oral tablet - 1 tab(s) orally once a day (at bedtime) PRN ziprasidone 60 mg oral capsule - 1 cap(s) orally 2 times a day omeprazole 40 mg oral delayed release capsule - 1 cap(s) orally once a day thiamine 100 mg oral tablet - 1 tab(s) orally once a day Multiple Vitamins with Minerals oral tablet - 1 tab(s) orally once a day PRN Medication Lab Results - Pending: None Radiology Results - Pending: None Signature/Cosignature/Attestation: Comments/ Additional Findings Note: This was transcribed using myOrder voice recognition software. Attempts were made to correct any errors however errors or omissions may be present. Please contact abstract writer to clarify if needed. Thanks New labs., Meds, Imaging and vitals reviewed Electronic Signatures: Chalino Brooks) (Signed 31-Oct-2017 13:55) Authored: Send Summary, Summary Content, Ongoing Care, Signature/Cosignature/Attestation Last Updated: 31-Oct-2017 13:55 by Chalino Brooks) DISCHARGE PROFILE2 Observed: 10/31/2017 Status: UNK Source: [place] 1:29 PM HOSPITALS REPOSITORY Discharge Orders: Anticipated Discharge Date: ? Anticipated Discharge [id number] ? Anticipated Discharge Time13:29 Activity: activity as tolerated. Diet: ? Dietregular Additional Orders: ? Additional Instructions advised to stay away from alcohol Provider FINAL REVIEW of Orders: Final Review: ? Final Review of Medication Reconciliation and Orders Completedby Physician ? Reviewing ProviderChalino Brooks MD at 31-Oct-2017 13:30:17 Appointments: Follow-Up Appointment 01: ? Physician/Dept/ServicePrimary Care Provider ? Call to Schedule in2 weeks ? CommentsOrder received after discharge; Reached out to patient lvm and sent letter Electronic Signatures: Chalino Brooks) (Signed 31-Oct-2017 13:30) Authored: Discharge Orders, Provider FINAL REVIEW of Orders, Appointments, Gold Form - Hay Stacker Summary Edith Miles (PT ACC REP) (Signed 02-Nov-2017 09:21) Authored: Appointments Last Updated: 02-Nov-2017 09:21 by Edith Miles (PT ACC REP) CLOST.DIFF.TOXIN,PCR Collected: Status: F Source: [place] 10/31/2017 8:49 AM HOSPITALS REPOSITORY TYPE CODE TESTS RESULT OUT OF REFERENCE UNITS RANGE LAB CDPCR(LOINC Not Detected ) NOT DETECTED CLOST.DIFF.T OXIN,PCR Result Comment: This assay detects the presence of the tcdB (toxin B) gene via DNA amplification, and results should be interpreted in the context of the patients history and clinical findings. This test cannot be performed on formed stools or used as a test of cure, and should not be performed more than once per 7 days. Performed By: #### CDPCR #### [facility] [id number] [place] [id number] CBC AND DIFFERENTIAL Collected: 10/31/2017 Status: F Source: [place] 7:56 AM HOSPITALS REPOSITORY TYPE CODE TESTS RESULT OUT OF REFERENCE UNITS RANGE LAB WBCR(LOINC 4.4 - 11.3 x10E9/L ) WBC 7.4 LAB NRBC(LOINC 0.0-0.0 /100 WBC ) NUCLEATED RBC 0.0 LAB RBCCT(LOIN 4.50 - 5.90 x10E12/L C) RBC 4.63 LAB HGB(LOINC) 13.5 - 17.5 g/dL HGB 14.5 LAB HCT(LOINC) 41.0 - 52.0 % HCT 44.8 LAB MCV(LOINC) 80 - 100 fL MCV 97 LAB MCHC2(LOIN 32.0 - 36.0 g/dL C) MCHC 32.4 LAB PLTCT(LOIN 150 - 450 x10E9/L C) PLT 286 LAB RDWCV(LOIN 11.5 - 14.5 % C) RDW-CV 13.8 LAB NEUT(LOINC 40.0 - 80.0 % ) % NEUTROPHIL 56.9 LAB IG(LOINC) 0.0 - 0.9 % % AUTOMATED 0.4 IMMATURE GRAN Result Comment: Percent differential counts (%) should be interpreted in the context of the absolute cell counts (cells/L). LAB LYMPH(LOINC) 13.0 - 44.0 % % LYMPHOCYTE 32.1 LAB MONO(LOINC) 2.0 - 10.0 % % MONOCYTE 7.3 LAB EOS(LOINC) 0.0 - 6.0 % % EOSINOPHIL 2.2 LAB BASO(LOINC) 0.0 - 2.0 % % BASOPHIL 1.1 LAB #NEUT(LOINC) 1.20 - 7.70 x10E9/L NEUTROPHIL 4.22 LAB #LYMP(LOINC) 1.20 - 4.80 x10E9/L LYMPHOCYTE 2.38 LAB #MONO(LOINC) 0.10 - 1.00 x10E9/L MONOCYTE 0.54 LAB #EOS(LOINC) 0.00 - 0.70 x10E9/L EOSINOPHIL 0.16 LAB #BASO(LOINC) 0.00 - 0.10 x10E9/L BASOPHIL 0.08 Performed By: #### CBCDF #### [facility] [id number] [place] [id number] COMPREHENSIVE PANEL Collected: 10/31/2017 Status: F Source: [place] 7:56 AM HOSPITALS REPOSITORY TYPE CODE TESTS RESULT OUT OF REFERENCE UNITS RANGE LAB GLU(LOINC) 74 - 99 mg/dL GLUCOSE 91 LAB SOD(LOINC) 136 - 145 mmol/L SODIUM 137 LAB K(LOINC) 3.5 - 5.3 mmol/L Low POTASSIUM 3.4 LAB CHLOR(LOIN 98 - 107 mmol/L C) CHLORIDE 100 LAB BIC(LOINC) 21 - 32 mmol/L BICARBONATE 25 LAB ANGAP(LOIN 10 - 20 mmol/L C) ANION GAP 15 LAB UREA(LOINC 6 - 23 mg/dL ) UREA NITROGEN 10 LAB CREA(LOINC 0.50 - 1.30 mg/dL ) CREATININE 0.55 LAB GFRFN(LOIN >60 mL/min/1.7 C) 3m2 GFR-NON AM. >60 LAB GFRAA(LOIN >60 mL/min/1.7 C) 3m2 GFR- AM. >60 Result Comment: CALCULATIONS OF ESTIMATED GFR ARE PERFORMED USING THE MDRD STUDY EQUATION FOR THE IDMS-TRACEABLE CREATININE METHODS. CLIN CHEM 2007;53:766-72 LAB CA(LOINC) 8.6 - 10.6 mg/dL CALCIUM 8.6 LAB ALB(LOINC) 3.4 - 5.0 g/dL ALBUMIN 3.9 LAB AP(LOINC) 33 - 120 U/L ALKALINE High PHOSPHATASE 145 LAB TP(LOINC) 6.4 - 8.2 g/dL TOTAL PROTEIN 6.5 LAB AST(LOINC) 9 - 39 U/L AST 19 LAB TBILI(LOINC) 0.0 - 1.2 mg/dL BILIRUBIN,TOTAL 1.1 LAB ALT(LOINC) 10 - 52 U/L ALT 17 Result Comment: Patients treated with Sulfasalazine may generate falsely decreased results for ALT. Performed By: #### CMP #### [facility] [id number] [place] [address] DISCHARGE PLANNING Observed: 10/30/2017 Status: UNK Source: UNIVERSITY NOTE 7:59 PM HOSPITALS REPOSITORY Patient Learning: ? Factors that Impact Ability to Learnacuteness of illness(1) Other Factors: ? Functional Screen: In the recent/past 2-4 weeks, patient or family have noticedno issues that require a rehabilitation consult at this time(2) Discharge Planning: Discharge Plannin10/30/17 1400 discharge planning note readmission of Zaina Doll for alcohol abuse and patient arrived from ED to [place] [id number] believing he will withdraw from alcohol even though he had his last drink this morning. patient observed to have tremors and states headache went from 6/10 to 10/10 in hours. CIWA Q2. Patient clothing, soaps and razors at beside. patients home medications in green bag with patient label on it in medication room next to pill director risk. anticipates going home at discharge. Jessica King RN Electronic Signatures: Jessica King (RN) (Signed 30-Oct-2017 20:02) Authored: Discharge Planning Note Last Updated: 30-Oct-2017 20:02 by Jessica King (GARY) References: 1. Data Referenced From 5. Education 10/30/2017 02:21 PM 2. Data Referenced From Admission Risk Screen - Adult 10/30/2017 02:21 PM HISTORY AND PHYSICAL Observed: 10/30/2017 Status: COMPLETED Source: UNIVERSITY 3:30 PM HOSPITALS REPOSITORY History of Present Illness: HPI: 37 year old male with past medical history of schizoaffective disorder and polysubstance abuse (EtOH, cocaine, marijuana, and tobacco) with several recent admissions for EtOH withdrawal presents to [facility] ED on 10/29 and 10/30 for EtOH withdrawal. Patient with several recent hospitalizations over the past few months for EtOH withdrawal. He was last discharged from [facility] on 10/23/17. He endorses that since discharge he got back into drinking and has been drinking since then, he would not elaborate what is he drinking but he drinks whatever he can. As per him the last drink was about 6-8 hours ago. As per the patient he has history of alcohol withdrawal seizure almost 6-7 months ago. Has history of alcohol withdrawal seizures and intubation almost 3-5 years ago. He has some nausea and abdominal discomfort and diarrhea from last few days. No blood, black or bowel movement. He was never told that he has alcoholic liver disease or has varices. He denies any skin abnormality. Denies any chest pain or chest pressure but has some cough which is dry in nature. Denies any shortness of breath. Denies any rashes lumps or bumps. Denies any fall or pain anywhere else. In the ER blood alcohol level was 349, urine drug screen was positive for barbiturates and cannabinoids. CMP was normal except for k 3.3. Liver function was normal. CBC was normal. No imaging was done Patient denies any suicidal ideation or homicidal ideation. EKG shows normal sinus rhythm Review of system-all systems reviewed and found negative except as discharged. PMHx: - As stated above Family Hx:- Denies any known history of MIs or CAD PSH - None Social Hx: tobacco - 1/2 ppd and chewing tobacco occasional marijuana lives with girlfriend no and off otherwise home less Patient is not very forthcoming regarding his history of alcohol abuse but states he drinks every alcohol he can get hold of and sometimes mouthwash. As alcohol withdrawal seizure 6 months ago and was intubated because of alcohol withdrawal almost 3-5 years ago Home Medications (patient had bottle in with him): Gabapentin 800mg TID Buspirone 15mg Q8hr Geodon 60mg BID Folic Acid 1mg daily Trazodone 100mg QHS PRN Omeprazole 40 mg po q day Allergies -allergic to morphine Allergies: ? morphine: Hives/Urticaria ? Horse: Swelling/Edema, Anaphylaxis, Facial Swelling ? opiates: Unknown ? narcotic analgesics: Unknown Objective: Medications: Medications: Continuous Medications No continuous medications are active Scheduled Medications 1. Benzonatate: 200 mg Oral 3 Times a Day 2. busPIRone: 15 mg Oral Every 8 Hours 3. Folic Acid: 1 mg Oral Daily 4. Gabapentin: 800 mg Oral 3 Times a Day 5. Multivitamin with Minerals: 1 tablet(s) Oral Daily 6. Pantoprazole: 40 mg Oral Daily 7. Thiamine: 100 mg Oral Daily 8. Ziprasidone: 60 mg Oral 2 Times a Day PRN Medications No PRN medications are active Recent Lab Results: Results: I have reviewed these laboratory results: Complete Blood Count 11-Aug-2018 11:38:00 ResultValue White Blood Cell Count 6.7 Nucleated Erythrocyte Count 0.0 Red Blood Cell Count 4.16 L HGB 13.2 L HCT 38.6 L MCV 93 MCHC 34.2 PLT 279 RDW-CV 14.0 Comprehensive Metabolic Panel 30-Oct-2017 11:38:00 ResultValue Glucose, Serum 65 L NA 142 K 3.4 L CL 104 Bicarbonate, Serum 27 Anion Gap, Serum 14 BUN 10 CREAT 0.65 GFR-Non >60 GFR- >60 Calcium, Serum 8.2 L ALB 3.9 ALKP 114 T Pro 6.4 T Bili 0.5 Alanine Aminotransferase, Serum 20 Aspartate Transaminase, Serum 19 Coagulation Screen 30-Oct-2017 11:38:00 ResultValue Prothrombin Time, Plasma 10.8 International Normalized Ratio, Plasma 1.0 Activated Partial Thromboplastin Time 27 Drug Screen, Blood 30-Oct-2017 07:58:00 ResultValue Acetaminophen Level, Serum <10.0 Reference Range: >5.0 POSITIVE Barbiturate Screen, Serum NEGATIVE Phenytoin Level, Serum <2.5 Reference Range: >5.0 POSITIVE Theophylline Level, Serum <2.5 Reference Range: >5.0 POSITIVE Tricyclics, Serum NEGATIVE Acetylsalicylic Acid Level, Serum <3 Reference Range: >2 POSITIVE Ethanol Level 30-Oct-2017 07:58:00 ResultValue Ethanol Level 349 A Drug Screen, Urine 30-Oct-2017 07:57:00 ResultValue Comments. SEE BELOW Drug screen results are presumptive and should not be used to assess compliance with prescribed medication. Contact the performing [facility] laboratory to add-on definitive confirmatory testing if clinically indicated. . Toxicology scre Amphetamine Screen, Urine PRESUMPTIVE NEGATIVE CUTOFF LEVEL: 500 NG/ML Cross-reactivity has been reported with high concentrations of the following drugs: buproprion, chloroquine, chlorpromazine, ephedrine, mephentermine, fenfluramine, phentermine, phenylpropanolamine Barbiturate Screen, Urine PRESUMPTIVE POSITIVE PRESUMPTIVE POSITIVE CUTOFF LEVEL: 200 NG/ML A Benzodiazepine Screen, Urine PRESUMPTIVE NEGATIVE PRESUMPTIVE NEGATIVE CUTOFF LEVEL: 200 NG/ML Cannabinoid Screen, Urine PRESUMPTIVE POSITIVE PRESUMPTIVE POSITIVE CUTOFF LEVEL: 50 NG/ML A Cocaine Metabolite Screen, Urine PRESUMPTIVE NEGATIVE PRESUMPTIVE NEGATIVE CUTOFF LEVEL: 150 NG/ML Methadone Screen, Urine PRESUMPTIVE NEGATIVE CUTOFF LEVEL: 150 NG/ML The metabolite J-zowom-emfrhmcecmomry (LAAM) is not detected by this method in concentrations that would be found in the urine of patients on LAAM therapy. Opiate Screen, Urine PRESUMPTIVE NEGATIVE CUTOFF LEVEL: 300 NG/ML The opiate screen does not detect fentanyl, meperidine, or tramadol. Oxycodone is not consistently detected (refer to Oxycodone Screen, Urine result). Oxycodone Screen, Urine (item) PRESUMPTIVE NEGATIVE CUTOFF LEVEL: 100 NG/ML This test will accurately detect both oxycodone and oxymorphone. PCP Screen, Urine PRESUMPTIVE NEGATIVE CUTOFF LEVEL: 25 NG/ML Cross-reactivity has been reported with dextromethorphan. Assessment and Plan: Assessment: Patient is cm laying on the bed without any acute distress Pupils reactive Oral mucosa moist Lungs clear to auscultation bilaterally S1, S2 heard rate and rhythm regular Abdomen is soft nondistended nontender Neurologically, alert, awake, moving all 4 extremities. Appropriate mood and affect No pitting edema Skin no rashes, multiple tattoos 37 year old male with past medical history of schizoaffective disorder and polysubstance abuse (EtOH, cocaine, marijuana, and tobacco) with several recent admissions for EtOH withdrawal presents to [facility] ED on 10/30/17 for EtOH withdrawal. EtOH Withdrawal: - Continue CIWA with Valium - Continue thiamine, folic acid, and MV - Continue gabapentin - Utox positive for marijuana and barbiturates. Blood alcohol level was 349 on 7:58 AM this morning. Abdominal discomfort and diarrhea Can be secondary to alcoholic gastritis, continue PPI, IV fluids, stool studies if he has persistent diarrhea. Schizoaffective Disorder: - Continue Geodon and Buspar. Diet: - Regular Ppx: - Ambulate FULL CODE Signatures/Attestation/Certification: Comments/ Additional Findings Note: This was transcribed using myOrder voice recognition software. Attempts were made to correct any errors however errors or omissions may be present. Please contact abstract writer to clarify if needed. Thanks New labs., Meds, Imaging and vitals reviewed. Consult notes reviewed. [facility] Service: 8am- 8pm x Hosp D 8pm - 8 am x [facility] - [phone] [place] [id number] Attending Provider ? Inpatient Certification StatementN/A - observation patient/other outpatient visits Electronic Signatures: Chalino Brooks) (Signed 31-Oct-2017 13:58) Authored: History of Present Illness, Comorbidities, Allergies, Objective, Assessment and Plan, Signatures/Attestation/Certification Last Updated: 31-Oct-2017 13:58 by Chalino Brooks) ADMISSION RISK SCREEN Observed: 10/30/2017 Status: UNK Source: UNIVERSITY - ADULT 2:21 PM HOSPITALS REPOSITORY Allergies: Allergies: ? morphine: Hives/Urticaria ? Horse: Swelling/Edema, Anaphylaxis, Facial Swelling ? opiates: Unknown ? narcotic analgesics: Unknown Patient Verification: ? New W ID Band Applied in my Departmentyes ? Patient Identity Verified Bypatient ? ID Band FULL Name, include Middle, spelling matches patient's ID used for verificationyes ? ID Band Matches Patient ID used for Verficationyes ? ID Band MRN Matches EMR MRNyes Advance Directive: ? Advance Directive Medicalno (1) ? Advance Directive Information Givenpatient/family declined Falls Screen: Type of Assessmentadmission Moderate Risk Factorspatient care equipment (scds, iv?s, chest tubes, mohr, etc) Risk for Injury Associated with Fallnone Fall Risk Conclusionmoderate falls risk with low risk for associated injury [place] Safety InterventionsWDL *orient to call system *instruct to call for assistance before getting out of bed *non-slip footwear when patient is out of bed *call cardona in reach *personal items and telephone in reach *physically safe environment (no spills or clutter) *bed in lowest position with wheels locked *appropriate side rails in place *room/bathroom lighting operational, light cord in reach *appropriate signage on door Fall and Injury Risk Interventionscollaborate with team for PT/OT consult/ambulatory aids, educate pt/family, monitor med side effects, consult Pharmacy, individualized toileting schedule Family Violence Screen: ? Are you or have you been threatened or abused physically, emotionally, or sexually by anyone?no ? Do you feel UNSAFE going back to the place where you are living?no ? Clinical assessment: Are there any apparent signs of injuries/behaviors that could be related to abuse/neglectno ? Social Service Consult for abuse/neglect needed this visit?no Functional screen: ? Functional Screen: In the recent/past 2-4 weeks, patient or family have noticedno issues that require a rehabilitation consult at this time Learning Assessment (Patient): ? Patient is Able to be Assessed for Learningyes ? Factors Influencing Readiness to Learnacuteness of illness; anxiety ? Factors that Impact Ability to Learnacuteness of illness ? Devices/Methods Used to Communicatecommunication board ? Learning Preferencesverbal instruction; individual instruction ? Cultural Considerationsnone ? Developmental Considerationsnone ? Orthodox Considerationsnone Learning Assessment (Other Learner): ? Other learner availableno Suicide/Depression Screen: ? During the past month, have you often been bothered by feeling down, depressed or hopeless?no (1) ? During the past month, have you often had little interest or pleasure in doing things?no (1) ? Have you had any thoughts of harming yourself?no (1) ? Have you had any thoughts of harming anyone else?no (1) Adult Nutrition Screen: ? Have you recently lost weight without tryingno ? Have you been eating poorly because of a decreased appetiteno ? MST Score0 ? RiskMST = 0 or 1 Not at risk. Eating well with little or no weight loss ? Nutrition Consult needed this visit?no ? Can Patient Participate in Room Service?yes ? Patient requires Paper Dishes/Plastic Utensilsno Pain Screen: ? Pain Scalenumerical 0-10 ? Pain Scale Educationteaching provided ? Current Pain Level6 = Moderate ? Acceptable Pain Level0 = None ? Expression of Pain (nonverbal)verbalization ? Chronic Painyes ? Usual Pain Rating at Rest5 ? Usual Pain Rating with Activity5 ? Chronic Back pain locationback ? Description of Pain (frequency/quality)aching ? Chronic Pain Commentfell off roof a while back; ill be fine Spiritual Screen: ? Are there any cultural, spiritual, anglican practices/values/needs that are important for us to know?no CAGE: Is this an injured patient at a Trauma Center ([facility]): no (1) Vaccinations: Vaccination - Influenza Vaccination Screen: ? Is it flu season? (between and )No Vaccination - Pneumonia Vaccination Screen: ? Patient has received a previous pneumonia vaccine:no/unknown... ? Immunocompetent persons with underlying chronic conditions or reside in senior living care facilitiescigarette smoking ? Pneumonia vaccine NOT indicated due to:patient DOES NOT have a condition that indicates vaccination Malik: Skin - Malik Scale: ? Malik: Sensory Perception (response to environment)(3) slightly limited ? Malik: Moisture (degree skin exposed to moisture)(4) rarely moist ? Malik: Activity (ability to walk)(3) walks occasionally ? Malik: Mobility (amount/control of body movement)(4) no limitation ? Malik: Nutrition (quality of food intake)(3) adequate ? Malik: Friction and Shear(3) no apparent problem ? Malik: Score20 Significant Indicatiors: Significant Indicators: Complete Pressure Injury: Pressure Injury Present on Admissionno Electronic Signatures: Jessica King (RN) (Signed 30-Oct-2017 14:26) Authored: Admission Risk Screens, Vaccinations, Malik, Pressure Injury Last Updated: 30-Oct-2017 14:26 by Jessica King (RN) References: 1. Data Referenced From Risk Screen - Adult Emergency 10/30/2017 08:59 AM PATIENT PROFILE - Observed: 10/30/2017 Status: UNK Source: DRIVER ADULT 1:44 PM HOSPITALS REPOSITORY Profile: Initial Info: How to be AddressedKurt(1) Spoken Language PreferredEnglish (1) Are you currently using the Personal Electronic Health Record or One Touch EMRno (1) Stated Reason for Admissioninto muscle going into alcohol withdraw Arrived Fromemergency department Employment Statusdisabled(1) Patient Belongingsremains with patient Patient Belongings Remaining with Patientclothing; smith/credit card; cell phone/electronics; purse/wallet Medications Brought to Hospitalyes Medication Dispositionlocked in unit medication cabinet General Health: Weight in kg86.1 kilogram(s) Weight in ubm462 pound(s) Height in feet6 feet Height in cm3 centimeter(s) Weight Methodstated Scale Typestanding Height Methodstated RSP Based Care: How would you like to participate in your care?fully What is the number one concern for you during this hospitalization?control my withdraw symptoms What is the most important thing we can do to support you during this hospitalization?nothing Is there anything we need to know to best care for you?no Substance: Current or Former Substance Use YES: Cigarette/Tobacco(1), e-Cigarette/Vaping, Alcohol(1), Street Drugs(1) Tobacco Cessation Education (provide if tobacco use within the last 12 mos)yes Alcohol Use Statuspast alcohol (1) Alcohol Amount7-9 drinks (1) Alcohol Frequencydaily (1) Alcohol Typeliquor; wine; beer(1) Method of Quittingdetox unit(1) Street Drug/Inhalant/ Medication Use Statuscurrent street drug/inhalant/medication abuse (1) Street Drug/Medication/ Inhalant Typemarijuana(1) Street Drug/Medication/ Inhalant Routesmoking(1) Frequency of Street Drug/Medication/Inhalant Use2-4 times/month (1) Health Mgmt: Symptoms/Conditions Managed at Homegastrointestinal; behavioral health Behavioral Health Symptoms/Conditionsbipolar affective disorder Behavioral Management Strategiesmedication therapy Behavioral Health Managementmanaged Gastrointestinal Symptoms/Conditionsreflux/heartburn Gastrointestinal Management Strategiesmedication therapy Gastrointestinal Managementmanaged Relationship/Environ: Primary Source of Support/Comfortparent Lives Withsignificant other Living Arrangementsapartment Resource/Environmental Concernsnone Anticipated Transition [place] Services Anticipated at Transitionnone Significant IndicatorsComplete Information Review: ? Allergies, Home Meds and Significant Events have been Reviewed and Verified with Patient/Familyyes ALLERGY, INTOLERANCE, ADVERSE EVENT: Allergies: ? morphine: Drug, Hives/Urticaria, Active ? Horse: Environment, Swelling/Edema, Anaphylaxis, Facial Swelling, Active ? opiates: Drug Category, Unknown, Active ? narcotic analgesics: Drug Category, Unknown, Active Significant Events: 21-Jul-2017 ? Seizure Disorder: Past Medical History, Active, from alcohol withdraw 18-Sep-2016 ? EtOH abuse: Past Medical History, Active 31-Mar-2015 ? Hypertension (HTN): Past Medical History, Active 26-Feb-2015 ? GERD: Past Medical History, Active 15-Dec-2014 ? schizoaffective disorder: Past Medical History, Active Problem List: Additional Dx: ? Alcohol use disorder, moderate, dependence: Catalog Name: Alcohol dependence, uncomplicated ? Schizoaffective disorder: Catalog Name: Schizoaffective disorder, unspecified ? Alcohol use with intoxication: Catalog Name: Alcohol use, unspecified with intoxication, unspecified Medical History: ? Alcohol dependence with uncomplicated withdrawal: Catalog Name: Alcohol dependence with withdrawal, uncomplicated ? Overdose of antidepressant: Catalog Name: Poisoning by unspecified antidepressants, accidental (unintentional), initial encounter ? Overdose of antipsychotic: Catalog Name: Poisoning by unspecified antipsychotics and neuroleptics, accidental (unintentional), initial encounter ? Alcohol addiction: Catalog Name: Alcohol dependence, uncomplicated ? Schizoaffective disorder: Catalog Name: Schizoaffective disorder, unspecified Prelim Disch Dx: ? Alcohol withdrawal: Catalog Name: Alcohol dependence with withdrawal, unspecified ? Alcohol withdrawal: Catalog Name: Alcohol dependence with withdrawal, unspecified ? Alcohol withdrawal: Catalog Name: Alcohol dependence with withdrawal, unspecified ? S/P alcohol detoxification: Catalog Name: Encounter for follow-up examination after completed treatment for conditions other than malignant neoplasm Electronic Signatures: Jessica King (GARY) (Signed 30-Oct-2017 14:02) Authored: Profile, Additional Information Last Updated: 30-Oct-2017 14:02 by Jessica King (GARY) References: 1. Data Referenced From Patient Profile - Adult v2 10/22/2017 01:58 PM CBC Collected: 10/30/2017 Status: F Source: DRIVER [address] [place] [address] REPOSITORY TYPE CODE TESTS RESULT OUT OF REFERENCE UNITS RANGE LAB WBCR(LOINC 4.4 - 11.3 x10E9/L ) WBC 6.7 LAB NRBC(LOINC 0.0-0.0 /100 WBC ) NUCLEATED RBC 0.0 LAB RBCCT(LOIN 4.50 - 5.90 x10E12/L C) Low RBC 4.16 LAB HGB(LOINC) 13.5 - 17.5 g/dL Low HGB 13.2 LAB HCT(LOINC) 41.0 - 52.0 % Low HCT 38.6 LAB MCV(LOINC) 80 - 100 fL MCV 93 LAB MCHC2(LOIN 32.0 - 36.0 g/dL C) MCHC 34.2 LAB PLTCT(LOIN 150 - 450 x10E9/L C) PLT 279 LAB RDWCV(LOIN 11.5 - 14.5 % C) RDW-CV 14.0 Performed By: #### CBC #### [facility] [address] [place] [address] COMPREHENSIVE PANEL Collected: 10/30/2017 Status: F Source: DRIVER 11:[address] [place] [address] REPOSITORY TYPE CODE TESTS RESULT OUT OF REFERENCE UNITS RANGE LAB GLU(LOINC) 74 - 99 mg/dL Low GLUCOSE 65 LAB SOD(LOINC) 136 - 145 mmol/L SODIUM 142 LAB K(LOINC) 3.5 - 5.3 mmol/L Low POTASSIUM 3.4 LAB CHLOR(LOIN 98 - 107 mmol/L C) CHLORIDE 104 LAB BIC(LOINC) 21 - 32 mmol/L BICARBONATE 27 LAB ANGAP(LOIN 10 - 20 mmol/L C) ANION GAP 14 LAB UREA(LOINC 6 - 23 mg/dL ) UREA NITROGEN 10 LAB CREA(LOINC 0.50 - 1.30 mg/dL ) CREATININE 0.65 LAB GFRFN(LOIN >60 mL/min/1.7 C) 3m2 GFR-NON AM. >60 LAB GFRAA(LOIN >60 mL/min/1.7 C) 3m2 GFR- AM. >60 Result Comment: CALCULATIONS OF ESTIMATED GFR ARE PERFORMED USING THE MDRD STUDY EQUATION FOR THE IDMS-TRACEABLE CREATININE METHODS. CLIN CHEM 2007;53:766-72 LAB CA(LOINC) 8.6 - 10.6 mg/dL CALCIUM Low 8.2 LAB ALB(LOINC) 3.4 - 5.0 g/dL ALBUMIN 3.9 LAB AP(LOINC) 33 - 120 U/L ALKALINE PHOSPHATASE 114 LAB TP(LOINC) 6.4 - 8.2 g/dL TOTAL PROTEIN 6.4 LAB AST(LOINC) 9 - 39 U/L AST 19 LAB TBILI(LOINC) 0.0 - 1.2 mg/dL BILIRUBIN,TOTAL 0.5 LAB ALT(LOINC) 10 - 52 U/L ALT 20 Result Comment: Patients treated with Sulfasalazine may generate falsely decreased results for ALT. Performed By: #### CMP #### [facility] [address] [place] [address] COAGULATION SCREEN Collected: 10/30/2017 Status: F Source: DRIVER 11:38 AM HOSPITALS REPOSITORY TYPE CODE TESTS RESULT OUT OF REFERENCE UNITS RANGE LAB PT(LOINC) 9.8 - 12.7 sec PROTHROMBIN TIME 10.8 LAB INR(LOINC) 0.9 - 1.1 PT, INR 1.0 LAB APTT(LOINC 25 - 36 sec ) APTT 27 Result Comment: THE APTT IS NO LONGER USED FOR MONITORING UNFRACTIONATED HEPARIN THERAPY. FOR MONITORING HEPARIN THERAPY, USE THE HEPARIN ASSAY. Performed By: #### COAGS #### [facility] [address] [place] [address] PROVIDER NOTE - ED Observed: 10/30/2017 Status: COMPLETED Source: UNIVERSITY V2 10:20 AM HOSPITALS REPOSITORY Provider Note - ED v2: Chart Review: ED NOTES ED NOTES: 37-year-old male with history of alcohol and substance abuse as the emergency department for symptoms of withdrawal. He states that his last drink was 4 hours prior to arrival. He states that he has had both delirium tremens and seizures in the past during withdrawal and he is coming in so that he would not have the symptoms. He was in the ED yesterday and left without completed treatment, but returns saying I know I messed up. He does state he currently has no fever, nausea, vomiting, chills, diarrhea. He does have a tremor and feels overall just unwell. Otherwise he denies any symptoms at this time. Allergies: ?Opiates? Medications: None Past medical history: As above Past surgical history: None Social history: Chronic alcohol, intermittent illicit drug use, daily tobacco Review of systems: Other than those stated in the history the patient reports no additional symptoms at this time Physical exam: VS: as documented General: NAD, NT, a/o X3 Skin: wwp, no obvious pathologic rashes, no pitting or swelling Eyes: Pupils reactive bl and equally, no ptosis or lag, eom intact, sclera white HENT: AT/NC, tachy mm, no nare or op lesions CV: No M/R/G appreciated, No pedal edema appreciated, No JVD appreciated, 2+ pulses Resp: Clear to auscultation bl, no wheeze, no focality, no supplemental O2 needs; normal excursion with equal breath sounds and chest rise GI: soft, nt, nd, no appreciable megaly or masses, bs+ in all quadrants MSK: Symmetric muscle bulk. No joint swelling in the extremities appreciated, no calf or bony tenderness Neuro: Alert. CN II - XII intact grossly, no FND observed, speech fluent, answers questions appropriately. Bilateral upper extremity tremor with no obvious asterixis. Gait and balance intact. No obvious cerebellar concerns at this time. No nystagmus. Psych: Appropriate, unkempt Assessment and plan: 37-year-old male with past medical history as above presented to the emergency department for symptoms of withdrawal. He does seem to be tremulous on exam and feels overall unwell. Due to his history of seizures as well as delirium tremens he was started immediately on CIWA protocol and received his first dose of oral benzodiazepine medication. He was also given folate and thiamine, as well as IVF for clinical dehydration.when I did question and he states he will go home and not drink and he is interested in stopping his alcohol intake. Being that he is showing signs of clinical withdrawal at this point I suspect these will get worse or at least stay the same and he will likely need pharmaceutical assistance. For that reason I want to admit him to the general medicine floor before his withdrawal symptoms get too bad. HISTORY OF PRESENTING ILLNESS ZAINA was seen by me at 30-Oct-2017 07:27 for a chief complaint of other(1). Other complaints include: pt states he is going through alcohol withdrawal, pt states his last drink was one hr ago(1). Triage Information: Most recent Vital Sign Value Date Temp (F): 98 10-30-2017 06:30 Temp (C): 36.7 10-30-2017 06:30 Heart Rate (beats/min): 105 10-30-2017 06:30 Respirations (breaths/min): 16 10-30-2017 06:30 SpO2 (%): 97 10-30-2017 06:30 BP Systolic (mm Hg): 135 10-30-2017 06:30 BP Diastolic (mm Hg): 100 10-30-2017 06:30 PAST MEDICAL HISTORY ATTESTATION: I have reviewed and confirmed nurse's/medic's notes for patient's medications, allergies, medical history, and surgical history ALLERGIES/INTOLERANCES: Allergy Allergen: morphine Type: Drug Reaction: Hives/Urticaria Allergen: Horse Type: Environment Reaction: Swelling/Edema Anaphylaxis Facial Swelling Allergen: opiates Type: Drug Category Reaction: Unknown Allergen: narcotic analgesics Type: Drug Category Reaction: Unknown HEALTH HISTORY: Medical History Name:Schizoaffective disorder Code:F25.9 Name:Alcohol addiction Code:F10.20 Name:Overdose of antipsychotic Code:T43.501A Name:Overdose of antidepressant Code:T43.201A Name:Alcohol dependence with uncomplicated withdrawal Code:F10.230 OUTPATIENT MEDICATIONS: Home Medications Review Status for Reconciliation: Not Done Med Status: Patient Currently Takes Medications Drug Name: gabapentin 400 mg oral capsule Instructions: 2 cap(s) orally 3 times a day Drug Name: busPIRone 15 mg oral tablet Instructions: 1 tab(s) orally every 8 hours Drug Name: folic acid 1 mg oral tablet Instructions: 1 tab(s) orally once a day Drug Name: traZODone 100 mg oral tablet Instructions: 1 tab(s) orally once a day (at bedtime) PRN Drug Name: ziprasidone 60 mg oral capsule Instructions: 1 cap(s) orally 2 times a day Drug Name: omeprazole 40 mg oral delayed release capsule Instructions: 1 cap(s) orally once a day Drug Name: thiamine 100 mg oral tablet Instructions: 1 tab(s) orally once a day Drug Name: Multiple Vitamins with Minerals oral tablet Instructions: 1 tab(s) orally once a day SIGNIFICANT EVENTS: Past Medical History Description:schizoaffective disorder Status:Active Description:GERD Status:Active Description:Hypertension (HTN) Status:Active Description:EtOH abuse Status:Active Description:Seizure Disorder Additional Notes:from alcohol withdraw Status:Active RESULTS/VITAL SIGNS RESULTS: Recent Lab Results: I have reviewed these laboratory results: Ethanol Level 30-Oct-2017 07:58:00 ResultValue Ethanol Level 349 A Drug Screen, Urine 30-Oct-2017 07:57:00 ResultValue Comments. SEE BELOW Drug screen results are presumptive and should not be used to assess compliance with prescribed medication. Contact the performing [facility] laboratory to add-on definitive confirmatory testing if clinically indicated. . Toxicology scre Amphetamine Screen, Urine PRESUMPTIVE NEGATIVE CUTOFF LEVEL: 500 NG/ML Cross-reactivity has been reported with high concentrations of the following drugs: buproprion, chloroquine, chlorpromazine, ephedrine, mephentermine, fenfluramine, phentermine, phenylpropanolamine Barbiturate Screen, Urine PRESUMPTIVE POSITIVE PRESUMPTIVE POSITIVE CUTOFF LEVEL: 200 NG/ML A Benzodiazepine Screen, Urine PRESUMPTIVE NEGATIVE PRESUMPTIVE NEGATIVE CUTOFF LEVEL: 200 NG/ML Cannabinoid Screen, Urine PRESUMPTIVE POSITIVE PRESUMPTIVE POSITIVE CUTOFF LEVEL: 50 NG/ML A Cocaine Metabolite Screen, Urine PRESUMPTIVE NEGATIVE PRESUMPTIVE NEGATIVE CUTOFF LEVEL: 150 NG/ML Methadone Screen, Urine PRESUMPTIVE NEGATIVE CUTOFF LEVEL: 150 NG/ML The metabolite T-agtke-jwhxbddpbtphne (LAAM) is not detected by this method in concentrations that would be found in the urine of patients on LAAM therapy. Opiate Screen, Urine PRESUMPTIVE NEGATIVE CUTOFF LEVEL: 300 NG/ML The opiate screen does not detect fentanyl, meperidine, or tramadol. Oxycodone is not consistently detected (refer to Oxycodone Screen, Urine result). Oxycodone Screen, Urine (item) PRESUMPTIVE NEGATIVE CUTOFF LEVEL: 100 NG/ML This test will accurately detect both oxycodone and oxymorphone. PCP Screen, Urine PRESUMPTIVE NEGATIVE CUTOFF LEVEL: 25 NG/ML Cross-reactivity has been reported with dextromethorphan. VITAL SIGNS: T PRBP SpO2O2(LPM) %FiO2 Method 30-Oct-2017 10:00:[id number] 97 room air, no respiratory support 30-Oct-2017 09:00:[id number]/60 97 room air, no respiratory support 30-Oct-2017 08:08:[id number]/96 98 room air, no respiratory support 30-Oct-2017 06:30:[id number] 97 MEDICAL DECISION MAKING/ED COURSE MDM/ED COURSE: Discussed Findings with: patient Data Reviewed: old records, vital signs and nurses notes CLINICAL IMPRESSION Diagnosis/Annotation: ED Dx Name:Alcohol withdrawal Code:F10.239 Name:Alcohol withdrawal syndrome Code:F10.239 Dispostion: hospitalized Admit to: Telemetry. Admitting Considerations: Condition on Disposition: stable ATTESTATION Comments/Additional Findings: Alcohol dependence in 37 yr- old male, now in withdrawal. Exam as above. Placed on CIWA, suspect need for continued inpatient support until acute withdrawal is controlled. CRITICAL CARE TIME Is this a critically ill patient?: no Electronic Signatures: Karina Whittaker) (Signed 13-Nov-2017 04:08) Authored: Provider Note - ED v2 Co-Signer: Provider Note - ED v2 Rubio Farr (Resident)) (Signed 30-Oct-2017 11:43) Authored: Provider Note - ED v2 Last Updated: 13-Nov-2017 04:08 by Karina Whittaker) References: 1. Data Referenced From Triage - ED 10/30/2017 6:30 AM RISK SCREEN - ADULT Observed: 10/30/2017 Status: UNK Source: [facility] 8:59 AM HOSPITALS REPOSITORY Preferred Language: Preferred Language: ? Preferred Language for Discussing Health Care (patient/designee)Sudanese Advanced Directives: ? Advance Directive Medicalno Family Violence Adult: Abuse Screen: ? Are you or have you been threatened or abused physically, emotionally, or sexually by anyone?no Suicide / Depression: Suicide/Depression Screen: ? During the past month, have you often been bothered by feeling down, depressed or hopeless?no ? During the past month, have you often had little interest or pleasure in doing things?no ? Have you had any thoughts of harming yourself?no (1) ? Have you had any thoughts of harming anyone else?no (1) Learning Assessment (Patient): Learning Assessment (Patient): ? Patient is Able to be Assessed for Learningyes ? Factors Influencing Readiness to Learnacuteness of illness ? Factors that Impact Ability to Learnnone ? Devices/Methods Used to Communicatenone ? Learning Preferencesverbal instruction ? Cultural Considerationsnone ? Developmental Considerationsnone ? Orthodox Considerationsnone ? Other Learnerssignificant other Learning Assessment (Other Learner): Learning Assessment (Other Learner): ? Other learner availableno Fall Risk Adult: Falls Risk: ? Altered Mobilitynone ? Change in Mental Statusno ? Relevant Medical History / Diagnosisnone ? Fall Historynone ? Altered Eliminationno ? Medications that Might Alter: equilibrium, cognitive judgement or severity of injurynone ? Sensory Deficitno ? UNABLE or UNWILLING to Follow Directionsno ? Patient Identified as a Falls Riskno ? Provide Rationale not identified as Falls Riskno risk factors identified Pressure Injury: Pressure Injury Present on Admissionno Respiratory / Cough /TB: ED / TB / Cough / Respiratory Screen: ? Do you have a cough?no Smoking/Social History (Required age 13 or older): Smoking Status: current every day smoker Alcohol Use: daily, history of abuse Drug Use: denies Admission Risk Screen: ? Significant IndicatorsComplete CAGE: CAGE: Is this an injured patient at a Trauma Center ([facility] / [facility]): no Electronic Signatures: Jennifer Gottlieb (GARY) (Signed 30-Oct-2017 09:03) Authored: Preferred Language, Advanced Directives, Family Violence Adult, Suicide / Depression, Learning Assessment (Patient), Learning Assessment (Other Learner), Fall Risk Adult, Pressure Injury, Respiratory / Cough /TB, Smoking/Social History (Required age 13 or older), CAGE Last Updated: 30-Oct-2017 09:03 by Jennifer Gottlieb (GARY) References: 1. Data Referenced From Triage - ED 10/30/2017 6:30 AM ALCOHOL Collected: 10/30/2017 Status: F Source: [facility] 7:58 AM [facility]OSPITALS REPOSITORY TYPE CODE TESTS RESULT OUT OF RANGE REFERENCE UNITS LAB ALC(LOINC) mg/dL Abnormal ALCOHOL 349 Result Comment: FOR MEDICAL USE ONLY. . REF VALUES <10 Performed By: #### ALC #### [facility] [address] [place] [address] DRUG SCREEN, BLOOD Collected: 10/30/2017 Status: F Source: DR[facility] 7:58 AM [facility] REPOSITORY TYPE CODE TESTS RESULT OUT OF REFERENCE UNITS RANGE LAB ACETT(LOIN >5.0 POSITIVE mg/L C) ACETAMINOPHEN <10.0 LAB BARBT(LOIN C) SERUM BARBITURATES NEGATIVE LAB PHEYT(LOIN >5.0 POSITIVE ug/mL C) PHENYTOIN <2.5 LAB THEOT(LOIN >5.0 POSITIVE ug/mL C) THEOPHYLLINE <2.5 LAB TRICT(LOIN C) TRICYCLICS, SERUM NEGATIVE LAB SALT(LOINC >2 POSITIVE mg/dL ) SALICYLATE <3 LAB ALCT(LOINC ) ALCOHOL Canceled Result Comment: FOR MEDICAL USE ONLY. Performed By: #### DRUGB #### [facility] [address] [place] [address] DRUG SCREEN,URINE Collected: 10/30/2017 Status: F Source: DR[facility] 7:57 AM [facility] REPOSITORY TYPE CODE TESTS RESULT OUT OF REFERENCE UNITS RANGE LAB DRCOM(LOINC ) DRUG SCREEN SEE BELOW COMMENT Result Comment: Drug screen results are presumptive and should not be used to assess compliance with prescribed medication. Contact the performing [facility] laboratory to add-on definitive confirmatory testing if clinically indicated. . Toxicology screening results are reported qualitatively. The concentration must be greater than or equal to the cutoff to be reported as positive. The concentration at which the screening test can detect an individual drug or metabolite varies. The absence of expected drug(s) and/or drug metabolite(s) may indicate non-compliance, inappropriate timing of specimen collection relative to drug administration, poor drug absorption, diluted/adulterated urine, or limitations of testing. For medical purposes only; not valid for forensic use. . Interpretive questions should be directed to the laboratory medical directors. LAB AMPH(LOINC) NEGATIVE AMPHETAMINE PRESUMPTIVE SCREEN,U NEGATIVE Result Comment: CUTOFF LEVEL: 500 NG/ML Cross-reactivity has been reported with high concentrations of the following drugs: buproprion, chloroquine, chlorpromazine, ephedrine, mephentermine, fenfluramine, phentermine, phenylpropanolamine, pseudoephedrine, and propranolol. LAB ARIANNA(LOINC) NEGATIVE Abnormal BARBITURATES PRESUMPTIVE SCREEN,U POSITIVE Result Comment: CUTOFF LEVEL: 200 NG/ML LAB BENZO(LOINC) NEGATIVE BENZODIAZEPINES SCREEN,U PRESUMPTIVE NEGATIVE Result Comment: CUTOFF LEVEL: 200 NG/ML LAB SHIRLEY(LOINC) NEGATIVE Abnormal CANNABINOIDS PRESUMPTIVE SCREEN,U POSITIVE Result Comment: CUTOFF LEVEL: 50 NG/ML LAB COCAI(LOINC) NEGATIVE COCAINE PRESUMPTIVE METABOLITE NEGATIVE SCREEN,U Result Comment: CUTOFF LEVEL: 150 NG/ML LAB METHD(LOINC) NEGATIVE PRESUMPTIVE METHADONE NEGATIVE SCREEN,U Result Comment: CUTOFF LEVEL: 150 NG/ML The metabolite Y-ahwus-uprqbmrvpeqnvr (LAAM) is not detected by this method in concentrations that would be found in the urine of patients on LAAM therapy. LAB OPIAT(LOINC) NEGATIVE PRESUMPTIVE OPIATES NEGATIVE SCREEN,U Result Comment: CUTOFF LEVEL: 300 NG/ML The opiate screen does not detect fentanyl, meperidine, or tramadol. Oxycodone is not consistently detected (refer to Oxycodone Screen, Urine result). LAB OXYS2(LOINC) NEGATIVE PRESUMPTIVE OXYCODONE NEGATIVE SCREEN,U Result Comment: CUTOFF LEVEL: 100 NG/ML This test will accurately detect both oxycodone and oxymorphone. LAB PCP(LOINC) NEGATIVE PCP PRESUMPTIVE SCREEN,U NEGATIVE Result Comment: CUTOFF LEVEL: 25 NG/ML Cross-reactivity has been reported with dextromethorphan. Performed By: #### [id number] #### [facility] [address] [place] [address] TRIAGE - ED Observed: 10/30/2017 Status: UNK Source: DR[facility] 6:30 AM HOSPITALS REPOSITORY Pain: Pain Rating (0-10): Rest7 Chart Review: CHIEF COMPLAINT ZAINA DOLL is a Male patient with a chief complaint of other (alcohol withdrawal). Onset of the Complaint: 30-Oct-2017 Other Complaints: pt states he is going through alcohol withdrawal, pt states his last drink was one hr ago Triage Date/Time: 30-Oct-2017 06:30 Pain Rating (0-10): Rest: 7 Pain location: back Vital Signs: Temperature: 98.0F ( 36.7C) taken temporal Blood Pressure: 135/100 Mean: Heart Rate: 105 Respiratory Rate: 16 Pulse Oximetry: 97% Height: 6 feet 3.00 inches. 190.5 CM Weight: 190.0 pounds. Calculated 86.1 kg. (stated) Calculated BMI (kg/m2): 23.725 Calculated BSA (m2) 2.13 Cough lasting greater than 3 weeks: no Patient immunocompromised related to: N/A Travel outside of [facility]: no Allergies: yes Patient has suicidal thoughts: no Patient has homicidal thoughts: no GEOVANNA: 3 Symptoms Are POSITIVE For: anxiety, diaphoresis, headache and nausea Symptoms Are Negative For: chills, dyspnea, loss of consciousness, numbness, tingling and weakness PAIN Pain Scale Used: ALLI Past Medical History: ? Past Medical History Reviewedyes Electronic Signatures: David Che (STAFF N) (Signed 30-Oct-2017 06:32) Authored: Triage, Past Medical History Last Updated: 30-Oct-2017 06:32 by David Che (STAFF N) PROVIDER NOTE - ED Observed: 10/29/2017 Status: COMPLETED Source: [facility] 5:08 PM HOSPITALS REPOSITORY ED Care Transition: Chart Review: ED NOTES ED NOTES: This patient was signed out to me by the previous emergency medicine resident. The patient received a dose of oral diazepam with improvement in symptoms. Labs returned and were remarkable for a highly elevated ethanol level to 371, positive drug screen for barbiturates and marijuana. He was monitored walking around in the emergency department and asked for food which she took without any difficulty. Patient is well-known to this emergency department and presents frequently with complaints of withdrawal. He appears to be at his baseline alcohol level. However on exam he does not exhibit any severe withdrawal symptoms. I felt he was safe for discharge home. He discharged in stable condition. CLINICAL IMPRESSION Diagnosis/Annotation: ED Dx Name:Alcohol withdrawal syndrome Code:F10.239 Name:Alcohol intoxication Code:F10.929 Dispostion: discharged Type: home Condition on Disposition: improved ATTESTATION Attestation: I saw and evaluated the patient. I personally obtained the goodwin and critical portions of the history and physical exam or was physically present for goodwin and critical portions performed by the resident/fellow. I reviewed the resident/fellow?s documentation and discussed the patient with the resident/fellow. I agree with the resident/fellow?s medical decision making as documented in the resident/fellow?s note with the exception/addition of the following Comments/Additional Findings: Dr. Gross's note: I saw this patient in room: 26 with the emergency medicine resident physician Dr. Mota and Dr. Strong. This patient came into the emerge department with intoxicated but then also felt that he may go into withdrawals. He was given diazepam and his symptoms seemed to decrease. Patient markedly improved and did not want to stay for any further care. He was discharged to home after eating food and ambulating in stable condition. I have personally performed and/or participated in all of the above services and procedures. I have reviewed all the nurses' notes and have confirmed their findings, and have incorporated those findings into this medical record. I have reviewed the resident history and physician finding; as well as the treatment. On my own examination I agree and incorporated in this document my own history, examination findings and clinical decision making. CRITICAL CARE TIME Is this a critically ill patient?: no Electronic Signatures: Mik Strong (Resident)) (Signed 29-Oct-2017 17:09) Authored: ED Care Transition Lux Grsos) (Signed 29-Oct-2017 18:57) Authored: ED Care Transition Co-Signer: ED Care Transition Last Updated: 29-Oct-2017 18:57 by Lux Gross) RISK SCREEN - ADULT Observed: 10/29/2017 Status: UNK Source: [facility] 3:57 PM HOSPITALS REPOSITORY Preferred Language: Preferred Language: ? Preferred Language for Discussing Health Care (patient/designee)Sudanese Advanced Directives: ? Advance Directive Medicalno Family Violence Adult: Abuse Screen: ? Are you or have you been threatened or abused physically, emotionally, or sexually by anyone?no Suicide / Depression: Suicide/Depression Screen: ? During the past month, have you often been bothered by feeling down, depressed or hopeless?no ? During the past month, have you often had little interest or pleasure in doing things?no ? Have you had any thoughts of harming yourself?no (1) ? Have you had any thoughts of harming anyone else?no (1) Learning Assessment (Patient): Learning Assessment (Patient): ? Patient is Able to be Assessed for Learningno ? Reason Unable to AssessETOH withdrawal Learning Assessment (Other Learner): Learning Assessment (Other Learner): ? Other learner availableno Fall Risk Adult: Falls Risk: ? Altered Mobilitynone ? Change in Mental Statusno ? Relevant Medical History / Diagnosisnone ? Fall Historynone ? Altered Eliminationno ? Medications that Might Alter: equilibrium, cognitive judgement or severity of injuryETOH ? Sensory Deficitno ? UNABLE or UNWILLING to Follow Directionsno ? Patient Identified as a Falls Riskyes Pressure Injury: Pressure Injury Present on Admissionno Respiratory / Cough /TB: ED / TB / Cough / Respiratory Screen: ? Do you have a cough?no Smoking/Social History (Required age 13 or older): Smoking Status: current every day smoker Alcohol Use: history of abuse Drug Use: history of abuse Admission Risk Screen: ? Significant IndicatorsComplete CAGE: CAGE: Is this an injured patient at a Trauma Center ([facility]): no Electronic Signatures: Connie Siddiqi (RN) (Signed 29-Oct-2017 15:58) Authored: Preferred Language, Advanced Directives, Family Violence Adult, Suicide / Depression, Learning Assessment (Patient), Learning Assessment (Other Learner), Fall Risk Adult, Pressure Injury, Respiratory / Cough /TB, Smoking/Social History (Required age 13 or older), CAGE Last Updated: 29-Oct-2017 15:58 by Connie Siddiqi (GARY) References: 1. Data Referenced From Triage - ED 10/29/2017 02:45 PM PROVIDER NOTE - ED Observed: 10/29/2017 Status: COMPLETED Source: [place] [id number] 3:50 PM HOSPITALS REPOSITORY Provider Note - ED v2: Chart Review: ED NOTES ED NOTES: 37-year-old male with history of alcohol and substance abuse as the emergency department for symptoms of withdrawal. He states that his last drink was 4 hours prior to arrival. He states that he has had both delirium tremens and seizures in the past during withdrawal and he is coming in so that he would not have the symptoms. Otherwise he is a poor historian and repeatedly asks ?where is my girlfriend.? He does state he currently has no fever, nausea, vomiting, chills, diarrhea. He does have a tremor and feels overall just unwell. Otherwise he denies any symptoms at this time. Allergies: ?Opiates? Medications: None Past medical history: As above Past surgical history: None Social history: Chronic alcohol, intermittent illicit drug use, daily tobacco Review of systems: Other than those stated in the history the patient reports no additional symptoms at this time Physical exam: VS: as documented General: NAD, NT, a/o X3 Skin: wwp, no obvious pathologic rashes, no pitting or swelling Eyes: Pupils reactive bl and equally, no ptosis or lag, eom intact, sclera white HENT: AT/NC, mmm, no nare or op lesions CV: No M/R/G appreciated, No pedal edema appreciated, No JVD appreciated, 2+ pulses Resp: Clear to auscultation bl, no wheeze, no focality, no supplemental O2 needs; normal excursion with equal breath sounds and chest rise GI: soft, nt, nd, no appreciable megaly or masses, bs+ in all quadrants MSK: Symmetric muscle bulk. No joint swelling in the extremities appreciated, no calf or bony tenderness Neuro: Alert. CN II - XII intact grossly, no FND observed, speech fluent, answers questions appropriately. Bilateral upper extremity tremor with no obvious asterixis. Gait and balance intact. No obvious cerebellar concerns at this time. Psych: Appropriate, kempt Assessment and plan: 37-year-old male with past medical history as above presented to the emergency department for symptoms of withdrawal. He does seem to be tremulous on exam and feels overall unwell. Due to his history of seizures as well as delirium tremens he was started immediately on CIWA protocol and received his first dose of oral benzodiazepine medication. He was also given folate and thiamine. He will likely need admission to the inpatient unit but this time he was signed out pending lab evaluation [facility]. HISTORY OF PRESENTING ILLNESS ZAINA was seen by me at 29-Oct-2017 14:54. Triage Information: Most recent Vital Sign Value Date Temp (F): 97.7 10-29-2017 14:45 Temp (C): 36.5 10-29-2017 14:45 Heart Rate (beats/min): 102 10-29-2017 14:45 Respirations (breaths/min): 16 10-29-2017 14:45 SpO2 (%): 99 10-29-2017 14:45 BP Systolic (mm Hg): 151 10-29-2017 14:45 BP Diastolic (mm Hg): 93 10-29-2017 14:45 PAST MEDICAL HISTORY ATTESTATION: I have reviewed and confirmed nurse's/medic's notes for patient's medications, allergies, medical history, and surgical history ALLERGIES/INTOLERANCES: Allergy Allergen: morphine Type: Drug Reaction: Hives/Urticaria Allergen: Horse Type: Environment Reaction: Swelling/Edema Anaphylaxis Facial Swelling Allergen: opiates Type: Drug Category Reaction: Unknown Allergen: narcotic analgesics Type: Drug Category Reaction: Unknown HEALTH HISTORY: Medical History Name:Schizoaffective disorder Code:F25.9 Name:Alcohol addiction Code:F10.20 Name:Overdose of antipsychotic Code:T43.501A Name:Overdose of antidepressant Code:T43.201A Name:Alcohol dependence with uncomplicated withdrawal Code:F10.230 OUTPATIENT MEDICATIONS: Home Medications Review Status for Reconciliation: N/A Med Status: Patient Currently Takes Medications Drug Name: gabapentin 400 mg oral capsule Instructions: 2 cap(s) orally 3 times a day Drug Name: busPIRone 15 mg oral tablet Instructions: 1 tab(s) orally every 8 hours Drug Name: folic acid 1 mg oral tablet Instructions: 1 tab(s) orally once a day Drug Name: traZODone 100 mg oral tablet Instructions: 1 tab(s) orally once a day (at bedtime) PRN Drug Name: ziprasidone 60 mg oral capsule Instructions: 1 cap(s) orally 2 times a day SIGNIFICANT EVENTS: Past Medical History Description:schizoaffective disorder Status:Active Description:GERD Status:Active Description:Hypertension (HTN) Status:Active Description:EtOH abuse Status:Active Description:Seizure Disorder Additional Notes:from alcohol withdraw Status:Active REVIEW OF SYSTEMS PSYCHIATRIC: (alcohol intake) POSITIVE for: anxiety RESULTS/VITAL SIGNS VITAL SIGNS: T PRBP SpO2O2(LPM) %FiO2 Method 29-Oct-2017 14:45:[id number] 99 room air, no respiratory support MEDICAL DECISION MAKING/ED COURSE MDM/ED COURSE: Discussed Findings with: patient Data Reviewed: old records, vital signs and nurses notes Conducted Detailed Discussion with Patient and/or Guardian Regarding: need to admit HANDOFF Transferring Patient to Incoming Team: yes Signed Out to Incoming Provider: Dr. Strong Handoff Comments: Awaiting resolution of his symptoms. CLINICAL IMPRESSION Diagnosis/Annotation: ED Dx Name:Alcohol withdrawal syndrome Code:F10.239 Name:Alcohol intoxication Code:F10.929 ATTESTATION Attestation: I saw and evaluated the patient. I personally obtained the goodwin and critical portions of the history and physical exam or was physically present for goodwin and critical portions performed by the resident/fellow. I reviewed the resident/fellow?s documentation and discussed the patient with the resident/fellow. I agree with the resident/fellow?s medical decision making as documented in the resident/fellow?s note with the exception/addition of the following Comments/Additional Findings: Dr. Gross's note: I saw this patient in room: 26 with the emergency medicine resident physician Dr. Mota and Dr. Strong. This patient came into the emerge department with intoxicated but then also felt that he may go into withdrawals. He was given diazepam and his symptoms seemed to decrease. Patient markedly improved and did not want to stay for any further care. He was discharged to home after eating food and ambulating in stable condition. I have personally performed and/or participated in all of the above services and procedures. I have reviewed all the nurses' notes and have confirmed their findings, and have incorporated those findings into this medical record. I have reviewed the resident history and physician finding; as well as the treatment. On my own examination I agree and incorporated in this document my own history, examination findings and clinical decision making. CRITICAL CARE TIME Is this a critically ill patient?: no Electronic Signatures: Lux Gross) (Signed 29-Oct-2017 18:55) Authored: Provider Note - ED v2 Co-Signer: Provider Note - ED v2 Rubio Farr (Resident)) (Signed 29-Oct-2017 15:53) Authored: Provider Note - ED v2 Last Updated: 29-Oct-2017 18:55 by Lux Gross) ALCOHOL Collected: 10/29/2017 Status: F Source: DRIVER 3:15 [facility] REPOSITORY TYPE CODE TESTS RESULT OUT OF RANGE REFERENCE UNITS LAB ALC(LOINC) mg/dL Abnormal ALCOHOL 371 Result Comment: FOR MEDICAL USE ONLY. . REF VALUES <10 Performed By: #### ALC #### [facility] [address] [place] [address] MAGNESIUM Collected: 10/29/2017 Status: F Source: DRIVER 3:15 PM [facility] REPOSITORY TYPE CODE TESTS RESULT OUT OF REFERENCE UNITS RANGE LAB MG(LOINC) 1.60 - 2.40 mg/dL MAGNESIUM 2.12 Performed By: #### MG #### [facility] [address] [place] [address] RENAL FUNCTION PANEL Collected: 10/29/2017 Status: F Source: DRIVER 3:15 [facility] REPOSITORY TYPE CODE TESTS RESULT OUT OF REFERENCE UNITS RANGE LAB GLU(LOINC) 74 - 99 mg/dL GLUCOSE 96 LAB SOD(LOINC) 136 - 145 mmol/L SODIUM 142 LAB K(LOINC) 3.5 - 5.3 mmol/L Low POTASSIUM 3.3 LAB CHLOR(LOIN 98 - 107 mmol/L C) CHLORIDE 105 LAB BIC(LOINC) 21 - 32 mmol/L BICARBONATE 24 LAB ANGAP(LOIN 10 - 20 mmol/L C) ANION GAP 16 LAB UREA(LOINC 6 - 23 mg/dL ) UREA NITROGEN 9 LAB CREA(LOINC 0.50 - 1.30 mg/dL ) CREATININE 0.64 LAB GFRFN(LOIN >60 mL/min/1.7 C) 3m2 GFR-NON AM. >60 LAB GFRAA(LOIN >60 mL/min/1.7 C) 3m2 GFR- AM. >60 Result Comment: CALCULATIONS OF ESTIMATED GFR ARE PERFORMED USING THE MDRD STUDY EQUATION FOR THE IDMS-TRACEABLE CREATININE METHODS. CLIN CHEM 2007;53:766-72 LAB CA(LOINC) 8.6 - 10.6 mg/dL CALCIUM Low 8.4 LAB PHOS(LOINC) 2.5 - 4.9 mg/dL PHOSPHORUS 2.9 Result Comment: The performance characteristics of phosphorus testing in heparinized plasma have been validated by the individual laboratory site where testing is performed. Testing on heparinized plasma is not approved by the FDA; however, such approval is not necessary. LAB ALB(LOINC) 3.4 - 5.0 g/dL ALBUMIN 4.1 Performed By: #### RENAL #### [facility] [address] [place] [address] CBC Collected: 10/29/2017 Status: F Source: DRIVER 3:15 [facility] REPOSITORY TYPE CODE TESTS RESULT OUT OF REFERENCE UNITS RANGE LAB WBCR(LOINC 4.4 - 11.3 x10E9/L ) WBC 6.6 LAB NRBC(LOINC 0.0-0.0 /100 WBC ) NUCLEATED RBC 0.0 LAB RBCCT(LOIN 4.50 - 5.90 x10E12/L C) Low RBC 4.09 LAB HGB(LOINC) 13.5 - 17.5 g/dL Low HGB 13.3 LAB HCT(LOINC) 41.0 - 52.0 % Low HCT 37.3 LAB MCV(LOINC) 80 - 100 fL MCV 91 LAB MCHC2(LOIN 32.0 - 36.0 g/dL C) MCHC 35.7 LAB PLTCT(LOIN 150 - 450 x10E9/L C) PLT 259 LAB RDWCV(LOIN 11.5 - 14.5 % C) RDW-CV 14.3 Performed By: #### CBC #### [facility] [address] [place] [address] DRUG SCREEN,URINE Collected: 10/29/2017 Status: F Source: DRIVER 2:59 PM [facility] REPOSITORY TYPE CODE TESTS RESULT OUT OF REFERENCE UNITS RANGE LAB DRCOM(LOINC ) DRUG SCREEN SEE BELOW COMMENT Result Comment: Drug screen results are presumptive and should not be used to assess compliance with prescribed medication. Contact the performing [facility] laboratory to add-on definitive confirmatory testing if clinically indicated. . Toxicology screening results are reported qualitatively. The concentration must be greater than or equal to the cutoff to be reported as positive. The concentration at which the screening test can detect an individual drug or metabolite varies. The absence of expected drug(s) and/or drug metabolite(s) may indicate non-compliance, inappropriate timing of specimen collection relative to drug administration, poor drug absorption, diluted/adulterated urine, or limitations of testing. For medical purposes only; not valid for forensic use. . Interpretive questions should be directed to the laboratory medical directors. LAB AMPH(LOINC) NEGATIVE AMPHETAMINE PRESUMPTIVE SCREEN,U NEGATIVE Result Comment: CUTOFF LEVEL: 500 NG/ML Cross-reactivity has been reported with high concentrations of the following drugs: buproprion, chloroquine, chlorpromazine, ephedrine, mephentermine, fenfluramine, phentermine, phenylpropanolamine, pseudoephedrine, and propranolol. LAB ARIANNA(LOINC) NEGATIVE Abnormal BARBITURATES PRESUMPTIVE SCREEN,U POSITIVE Result Comment: CUTOFF LEVEL: 200 NG/ML LAB BENZO(LOINC) NEGATIVE BENZODIAZEPINES SCREEN,U PRESUMPTIVE NEGATIVE Result Comment: CUTOFF LEVEL: 200 NG/ML LAB SHIRLEY(LOINC) NEGATIVE Abnormal CANNABINOIDS PRESUMPTIVE SCREEN,U POSITIVE Result Comment: CUTOFF LEVEL: 50 NG/ML LAB COCAI(LOINC) NEGATIVE COCAINE PRESUMPTIVE METABOLITE NEGATIVE SCREEN,U Result Comment: CUTOFF LEVEL: 150 NG/ML LAB METHD(LOINC) NEGATIVE PRESUMPTIVE METHADONE NEGATIVE SCREEN,U Result Comment: CUTOFF LEVEL: 150 NG/ML The metabolite F-pyohb-ljwpxmnfhemfly (LAAM) is not detected by this method in concentrations that would be found in the urine of patients on LAAM therapy. LAB OPIAT(LOINC) NEGATIVE PRESUMPTIVE OPIATES NEGATIVE SCREEN,U Result Comment: CUTOFF LEVEL: 300 NG/ML The opiate screen does not detect fentanyl, meperidine, or tramadol. Oxycodone is not consistently detected (refer to Oxycodone Screen, Urine result). LAB OXYS2(LOINC) NEGATIVE PRESUMPTIVE OXYCODONE NEGATIVE SCREEN,U Result Comment: CUTOFF LEVEL: 100 NG/ML This test will accurately detect both oxycodone and oxymorphone. LAB PCP(LOINC) NEGATIVE PCP PRESUMPTIVE SCREEN,U NEGATIVE Result Comment: CUTOFF LEVEL: 25 NG/ML Cross-reactivity has been reported with dextromethorphan. Performed By: #### [id number] #### [facility] [address] [place] [address] TRIAGE - ED Observed: 10/29/2017 Status: UNK Source: DRIVER 2:45 PM [facility]OSPITALS REPOSITORY Quick Triage: The patient and/or guardian verbally acknowledges placement for services into the following (when Urgent Care Service hours are operating):emergency department Pain: Pain Rating (0-10): Rest0 Chart Review: CHIEF COMPLAINT ZAINA DOLL is a Male patient with a chief complaint of (intox/ withdrawal). Triage Date/Time: 29-Oct-2017 14:45 Pain Rating (0-10): Rest: 0 Vital Signs: Temperature: 97.7F ( 36.5C) taken forehead Blood Pressure: 151/93 Mean: Heart Rate: 102 Respiratory Rate: 16 Pulse Oximetry: 99% on room air, no respiratory support. Height: 5 feet 9.00 inches. 175.2 CM Weight: 170.0 pounds. Calculated 77.1 kg. (stated) Calculated BMI (kg/m2): 25.118 Calculated BSA (m2) 1.94 Cough lasting greater than 3 weeks: no Travel outside of [place]: no Allergies: yes Mask applied: no Patient has suicidal thoughts: no Patient has homicidal thoughts: no GEOVANNA: 2 PAIN Pain Scale Used: ALLI Past Medical History: ? Past Medical History Reviewedyes ? Seizure Disorder: Past Medical History, from alcohol withdraw, Active ? EtOH abuse: Past Medical History, Active ? Hypertension (HTN): Past Medical History, Active ? GERD: Past Medical History, Active ? schizoaffective disorder: Past Medical History, Active Electronic Signatures: Palak Enrique (ADV CLIN N) (Signed 29-Oct-2017 14:53) Authored: Triage, Past Medical History Last Updated: 29-Oct-2017 14:53 by Palak Enrique (ADV CLIN N) PROVIDER NOTE - ED Observed: 10/27/2017 Status: COMPLETED Source: DRIVER V2 8:39 PM HOSPITALS REPOSITORY Provider Note - ED v2: Chart Review: ED NOTES ED NOTES: CC: Alcohol withdrawal HPI: This is a 37-year-old male with a significant history of alcohol abuse who presents to emergency department with concern for alcohol withdrawal. Patient states that he drinks 2/5 of liquor daily and had his second visit just prior to arrival to emergency department. The patient at this time is fully alert and oriented and is demanding food and Ativan. He states that his hands are shaking and feels agitated nauseous and has vomited 2 times earlier today. He denies any suicidal ideation or homicidal ideation upon my evaluation. ROS: A 12 point review of systems was performed and is negative except as documented in the HPI. MED & SURG Hx: Reviewed HOME MEDS: Reviewed ALLERGIES: Reviewed SOCIAL Hx: Reviewed FAMILY Hx: Reviewed PHYSICAL EXAM: Vital Signs: As documented in the triage note and EMR and were reviewed. General: A&O x 4. Pacing around the emergency department seemingly anxious. Skin: Mildly diaphoretic Head: Normocephalic, Atraumatic Eyes: Pinpoint but reactive pupils with extraocular motions intact noninjected Ears: Gross auditory acuity intact. No discharge. Mouth/Throat: MMM. No erythema, exudates or swelling. Neck: ROM intact. Trachea is midline. Normal thyroid size. Chest/Breast: Atraumatic. Symmetrical. Nontender. Heart: Mildly tachycardic. S1/S2 present. No M/R/G. No JVD. Lungs: Normal Respiratory Effort. CTA with equal rise bilaterally. No W/R/R. Abdomen: SNTND. BS x 4. No peritoneal signs. /RECTAL: Not examined. MSK/Extremities: Normal muscle bulk. 5/5 strength x 4. Normal joint ROM. No obvious deformities. NEURO: CN II - XII intact. Speech fluent. Answers questions appropriately. Patient has a resting upper extremity tremor. Able to self ambulate without gait or balance disturbance PSYCH: Appropriate mood and affect, however has tearful demeanor and reports anxiety. ?LABS: Ordered as noted in EMR. Significant values included in hospital course with normal values omitted. ?IMAGING: Ordered as noted in EMR. Radiology?s impression reviewed prior to disposition. ?EKG: Not performed. ED COURSE / MEDICAL DECISION MAKING: This is a 37-year-old male with a significant history of alcohol abuse since age 16 who presents to emergency department with concern for alcohol withdrawal. Physical exam is moderately suggestive for beginning of alcohol withdrawal however does not appear to be near the seizure threshold. The patient was about to be treated with fluids labs and put on a CIWA protocol however the patient refused any IV medication and then threatened to leave AGAINST MEDICAL ADVICE. The patient was counseled that since he complained of nausea and vomiting that it was prudent to slowly increase his oral intake while controlling for nausea to reduce the risk of aspiration. The patient rejected this plan and insisted that he leave AGAINST MEDICAL ADVICE. The patient signed the AGAINST MEDICAL ADVICE form and was counseled on the risks of leaving without treatment. The patient was of sound mind at the time of this decision and was discharged. The patient did not wait for discharge forms. Impression: alcohol abuse Disposition: left AMA Discussed with Dr. Jessica Herbert MD, MPH Emergency Medicine, PGY-2 [facility] Patient case was discussed with the attending physician, who also saw and evaluated the patient. Patient and/or patient small business sales representative was counseled regarding contents of ED COURSE / MEDICAL DECISION MAKING, impression and plan. All questions answered. If the patient was still in the ED as a patient when my ED shift ended the patient was turned over to the oncoming resident or attending physician. Portions of the note may have been dictated by speech recognition. HISTORY OF PRESENTING ILLNESS ZAINA was seen by me at 27-Oct-2017 20:27 for a chief complaint of suicidal thoughts(1). Other complaints include: patient states he's having thoughts of harming himself, denies HI. states he drank one four tony denies drug use(1). Triage Information: Most recent Vital Sign Value Date Temp (F): 98.6 10-27-2017 20:02 Temp (C): 37 10-27-2017 20:02 Heart Rate (beats/min): 113 10-27-2017 20:02 Respirations (breaths/min): 18 10-27-2017 20:02 SpO2 (%): 96 10-27-2017 20:02 BP Systolic (mm Hg): 144 10-27-2017 20:02 BP Diastolic (mm Hg): 73 10-27-2017 20:02 PAST MEDICAL HISTORY ATTESTATION: I have reviewed and confirmed nurse's/medic's notes for patient's medications, allergies, medical history, and surgical history ALLERGIES/INTOLERANCES: Allergy Allergen: morphine Type: Drug Reaction: Hives/Urticaria Allergen: Horse Type: Environment Reaction: Swelling/Edema Anaphylaxis Facial Swelling Allergen: opiates Type: Drug Category Reaction: Unknown Allergen: narcotic analgesics Type: Drug Category Reaction: Unknown HEALTH HISTORY: Medical History Name:Schizoaffective disorder Code:F25.9 Name:Alcohol addiction Code:F10.20 Name:Overdose of antipsychotic Code:T43.501A Name:Overdose of antidepressant Code:T43.201A Name:Alcohol dependence with uncomplicated withdrawal Code:F10.230 OUTPATIENT MEDICATIONS: Home Medications Review Status for Reconciliation: N/A Med Status: Patient Currently Takes Medications Drug Name: gabapentin 400 mg oral capsule Instructions: 2 cap(s) orally 3 times a day Drug Name: busPIRone 15 mg oral tablet Instructions: 1 tab(s) orally every 8 hours Drug Name: folic acid 1 mg oral tablet Instructions: 1 tab(s) orally once a day Drug Name: traZODone 100 mg oral tablet Instructions: 1 tab(s) orally once a day (at bedtime) PRN Drug Name: ziprasidone 60 mg oral capsule Instructions: 1 cap(s) orally 2 times a day Drug Name: omeprazole 40 mg oral delayed release capsule Instructions: 1 cap(s) orally once a day SIGNIFICANT EVENTS: Past Medical History Description:schizoaffective disorder Status:Active Description:GERD Status:Active Description:Hypertension (HTN) Status:Active Description:EtOH abuse Status:Active Description:Seizure Disorder Additional Notes:from alcohol withdraw Status:Active RESULTS/VITAL SIGNS VITAL SIGNS: T PRBP SpO2O2(LPM) %FiO2 Method 27-Oct-2017 20:02:[id number] 96 room air, no respiratory support CLINICAL IMPRESSION Diagnosis/Annotation: ED Dx Name:Alcohol abuse Code:F10.10 Dispostion: AMA (saw a physician/midlevel provider and clinician was able to provide reasons for staying for treatment & form is signed) Condition on Disposition: stable ATTESTATION Attestation: I saw and evaluated the patient. I personally obtained the goodwin and critical portions of the history and physical exam or was physically present for goodwin and critical portions performed by the resident/fellow. I reviewed the resident/fellow?s documentation and discussed the patient with the resident/fellow. I agree with the resident/fellow?s medical decision making as documented in the resident?s note Comments/Additional Findings: This patient was seen by the resident physician. I have seen and examined the patient, agree with the workup, evaluation, management and diagnosis. The care plan has been discussed and I concur. CRITICAL CARE TIME Is this a critically ill patient?: no Electronic Signatures: Brian Herbert (Resident)) (Signed 28-Oct-2017 15:45) Authored: Provider Note - ED v2 Chanel Loo) (Signed 30-Oct-2017 20:01) Authored: Provider Note - ED v2 Co-Signer: Provider Note - ED v2 Last Updated: 30-Oct-2017 20:01 by Chanel Loo) References: 1. Data Referenced From Triage - ED 10/27/2017 8:02 PM TRIAGE - ED Observed: 10/27/2017 Status: UNK Source: DRIVER 8:02 PM HOSPITALS REPOSITORY Chart Review: CHIEF COMPLAINT ZAINA DOLL is a Male patient with a chief complaint of suicidal thoughts. Onset of the Complaint: 27-Oct-2017 Other Complaints: patient states he's having thoughts of harming himself, denies HI. states he drank one four tony denies drug use Triage Date/Time: 27-Oct-2017 20:02 Vital Signs: Temperature: 98.6F ( 37.0C) taken forehead Blood Pressure: 144/73 Mean: Heart Rate: 113 Respiratory Rate: 18 Pulse Oximetry: 96% on room air, no respiratory support. Height: 6 feet 3.00 inches. 190.5 CM Weight: 240.0 pounds. Calculated 108.8 kg. (stated) Calculated BMI (kg/m2): 29.980 Calculated BSA (m2) 2.40 Travel outside of [place]: no Allergies: yes Patient has suicidal thoughts: yes Patient has homicidal thoughts: no GEOVANNA: 2 Symptoms Are POSITIVE For: agitated and suicidal thoughts. Symptoms Are Negative For: anorexia, confusion, depression, fatigue, hallucinations and withdrawn. PAIN Pain Scale Used: ALLI Past Medical History: ? Past Medical History Reviewedyes Electronic Signatures: Nuria Armstrong (STAFF N) (Signed 27-Oct-2017 20:08) Authored: Triage, Past Medical History Last Updated: 27-Oct-2017 20:08 by Nuria Armstrong (STAFF N) CLINICAL EVENT NOTE Observed: 10/24/2017 Status: UNK Source: DRIVER 12:10 AM HOSPITALS REPOSITORY Event: Details: 2345: Called by RN as patient wanting to leave AMA. Pt. has decision making capacity, able to state why he was admitted, A&O x 3, pleasant, cooperative understands fully his health conditions and is not homicidal or suicidal. No signs of ETOH appreciated, CIWA 1. Reviewed H&P, progress notes, labs, diagnostic tests, meds and vitals were reviewed. This CUSTOMS DIRECTOR explained the risk of leaving against medical advice including readmission and worsening of medical condition. Pt. verbally stated S/S of withdrawal and to return to ER if experiencing symptoms . Pt. signed AMA paperwork and this CUSTOMS DIRECTOR signed as witness as well as Dr. Hutson ([facility] attending). IV was d/c'd and patient left AMA. This CUSTOMS DIRECTOR spent 20 minutes with above patient @ bedside. Provider / Team Contact Information: Provider/Team Contact Info-Pager Number: [phone] Electronic Signatures: Alida Champion (CLINICAL LIAISON-SEED PRODUCTION FIELD SUPERVISOR) (Signed 24-Oct-2017 00:40) Authored: Event, Provider / Team Contact Information Last Updated: 24-Oct-2017 00:40 by Alida Champion (CLINICAL LIAISON-SEED PRODUCTION FIELD SUPERVISOR) DAILY PROGRESS Observed: 10/23/2017 Status: COMPLETED Source: DRIVER NOTE-MEDICINE 12:26 PM HOSPITALS REPOSITORY Service: Medicine Subjective Data: ZAINA DOLL is a 37 year old Male who is Hospital Day # 2. No acute events overnight. Patient states overall feels better today. Still with some nausea and feels slightly shaky. Patient's CIWA score 1-9 since admission to the floor yesterday. Requiring one dose of valium. Objective Data: Objective Information: T PRBPSpO2 [id number]/6097% Date/Time10/23 7: 11: 7: 11: 7:39 Range(36.5C - 37C ) (55 - 89 ) (17 - 20 ) (95 - 138 )/ (60 - 88 ) (95% - 100% ) Highest temp of 37 C was recorded at 10/23 3:29 Pain with Activity reported at 10/23 8:04: 4 Pain at Rest reported at 10/23 8:: 4 Physical Exam: Constitutional: NAD Respiratory/Thorax: Patent airways, CTAB, normal breath sounds with good chest expansion, thorax symmetric Cardiovascular: regular rate and rhythm Gastrointestinal: soft, non-tender Neurological: mild tremor b/l Medication: Medications: Continuous Medications No continuous medications are active Scheduled Medications 1. busPIRone: 15 mg Oral Every 8 Hours 2. Cholecalciferol (Vitamin D3): 2000 International Unit(s) Oral Daily 3. Folic Acid: 1 mg Oral Daily 4. Gabapentin: 800 mg Oral 3 Times a Day 5. Multivitamin with Minerals: 1 tablet(s) Oral Daily 6. Thiamine: 100 mg Oral Daily 7. Ziprasidone: 60 mg Oral 2 Times a Day PRN Medications 1. Acetaminophen: 650 mg Oral Every 4 Hours 2. diazePAM: 10 mg Oral Every 2 Hours 3. Ibuprofen: 600 mg Oral Every 8 Hours Recent Lab Results: Results: I have reviewed these laboratory results: Complete Blood Count + Differential 23-Oct-2017 07:25:00 ResultValue White Blood Cell Count 7.3 Nucleated Erythrocyte Count 0.0 Red Blood Cell Count 4.15 L HGB 13.1 L HCT 41.3 MCV 100 MCHC 31.7 L PLT 171 RDW-CV 14.0 Neutrophil % 53.1 Immature Granulocytes % 0.4 Lymphocyte % 30.8 Monocyte % 10.1 Eosinophil % 4.6 Basophil % 1.0 Neutrophil Count 3.86 Lymphocyte Count 2.23 Monocyte Count 0.73 Eosinophil Count 0.33 Basophil Count 0.07 Renal Function Panel 23-Oct-2017 07:25:00 ResultValue Glucose, Serum 80 NA 140 K 4.0 CL 106 Bicarbonate, Serum 23 Anion Gap, Serum 15 BUN 15 CREAT 0.79 GFR-Non >60 GFR- >60 Calcium, Serum 8.7 Phosphorus, Serum 3.9 ALB 3.8 Magnesium, Serum 23-Oct-2017 07:25:00 ResultValue Magnesium, Serum 2.30 Assessment and Plan: Assessment: 37 year old male with past medical history of schizoaffective disorder and polysubstance abuse (EtOH, cocaine, marijuana, and tobacco) with several recent admissions for EtOH withdrawal presents to [facility] ED on 10/22/17 for EtOH withdrawal. EtOH Withdrawal: - continue CIWA with Valium - patient used 2 dose of valium in last 24 hours (one in the ED and one on the floor) - low risk of withdrawal as patient with only one event of drinking since last went through withdrawal - continue thiamine, folic acid, and MV - continue gabapentin - utox ordered -> still awaiting collection Schizoaffective Disorder: - continue Geodon and Buspar Diet: - regular Ppx: - ambulate Dispo: - anticipate d/c home tomorrow if CIWA remains low FULL CODE Hosp [facility] Service: 8a-8p [id number] [id number] Electronic Signatures: Priti Gresham) (Signed 23-Oct-2017 12:30) Authored: Service, Subjective Data, Objective Data, Assessment and Plan, Signature/Cosignature/Attestation Last Updated: 23-Oct-2017 12:30 by Priti Gresham) CBC AND DIFFERENTIAL Collected: 10/23/2017 Status: F Source: DRIVER 7:25 AM HOSPITALS REPOSITORY TYPE CODE TESTS RESULT OUT OF REFERENCE UNITS RANGE LAB WBCR(LOINC 4.4 - 11.3 x10E9/L ) WBC 7.3 LAB NRBC(LOINC 0.0-0.0 /100 WBC ) NUCLEATED RBC 0.0 LAB RBCCT(LOIN 4.50 - 5.90 x10E12/L C) Low RBC 4.15 LAB HGB(LOINC) 13.5 - 17.5 g/dL Low HGB 13.1 LAB HCT(LOINC) 41.0 - 52.0 % HCT 41.3 LAB MCV(LOINC) 80 - 100 fL MCV 100 LAB MCHC2(LOIN 32.0 - 36.0 g/dL C) Low MCHC 31.7 LAB PLTCT(LOIN 150 - 450 x10E9/L C) PLT 171 LAB RDWCV(LOIN 11.5 - 14.5 % C) RDW-CV 14.0 LAB NEUT(LOINC 40.0 - 80.0 % ) % NEUTROPHIL 53.1 LAB IG(LOINC) 0.0 - 0.9 % % AUTOMATED 0.4 IMMATURE GRAN Result Comment: Percent differential counts (%) should be interpreted in the context of the absolute cell counts (cells/L). LAB LYMPH(LOINC) 13.0 - 44.0 % % LYMPHOCYTE 30.8 LAB MONO(LOINC) 2.0 - 10.0 % % MONOCYTE 10.1 LAB EOS(LOINC) 0.0 - 6.0 % % EOSINOPHIL 4.6 LAB BASO(LOINC) 0.0 - 2.0 % % BASOPHIL 1.0 LAB #NEUT(LOINC) 1.20 - 7.70 x10E9/L NEUTROPHIL 3.86 LAB #LYMP(LOINC) 1.20 - 4.80 x10E9/L LYMPHOCYTE 2.23 LAB #MONO(LOINC) 0.10 - 1.00 x10E9/L MONOCYTE 0.73 LAB #EOS(LOINC) 0.00 - 0.70 x10E9/L EOSINOPHIL 0.33 LAB #BASO(LOINC) 0.00 - 0.10 x10E9/L BASOPHIL 0.07 Performed By: #### CBCDF #### [facility] [address] [place] [address] MAGNESIUM Collected: 10/23/2017 Status: F Source: DRIVER 7:25 AM HOSPITALS REPOSITORY TYPE CODE TESTS RESULT OUT OF REFERENCE UNITS RANGE LAB MG(LOINC) 1.60 - 2.40 mg/dL MAGNESIUM 2.30 Performed By: #### MG #### [facility] [address] [place] [address] RENAL FUNCTION PANEL Collected: 10/23/2017 Status: F Source: DRIVER 7:25 AM HOSPITALS REPOSITORY TYPE CODE TESTS RESULT OUT OF REFERENCE UNITS RANGE LAB GLU(LOINC) 74 - 99 mg/dL GLUCOSE 80 LAB SOD(LOINC) 136 - 145 mmol/L SODIUM 140 LAB K(LOINC) 3.5 - 5.3 mmol/L POTASSIUM 4.0 LAB CHLOR(LOIN 98 - 107 mmol/L C) CHLORIDE 106 LAB BIC(LOINC) 21 - 32 mmol/L BICARBONATE 23 LAB ANGAP(LOIN 10 - 20 mmol/L C) ANION GAP 15 LAB UREA(LOINC 6 - 23 mg/dL ) UREA NITROGEN 15 LAB CREA(LOINC 0.50 - 1.30 mg/dL ) CREATININE 0.79 LAB GFRFN(LOIN >60 mL/min/1.7 C) 3m2 GFR-NON AM. >60 LAB GFRAA(LOIN >60 mL/min/1.7 C) 3m2 GFR- AM. >60 Result Comment: CALCULATIONS OF ESTIMATED GFR ARE PERFORMED USING THE MDRD STUDY EQUATION FOR THE IDMS-TRACEABLE CREATININE METHODS. CLIN CHEM 2007;53:766-72 LAB CA(LOINC) 8.6 - 10.6 mg/dL CALCIUM 8.7 LAB PHOS(LOINC) 2.5 - 4.9 mg/dL PHOSPHORUS 3.9 Result Comment: The performance characteristics of phosphorus testing in heparinized plasma have been validated by the individual laboratory site where testing is performed. Testing on heparinized plasma is not approved by the FDA; however, such approval is not necessary. LAB ALB(LOINC) 3.4 - 5.0 g/dL ALBUMIN 3.8 Performed By: #### RENAL #### [facility] [address] [place] [address] HISTORY AND PHYSICAL Observed: 10/22/2017 Status: COMPLETED Source: DRIVER 2:17 PM HOSPITALS REPOSITORY History of Present Illness: Admission Reason: EtOH Withdrawal HPI: 37 year old male with past medical history of schizoaffective disorder and polysubstance abuse (EtOH, cocaine, marijuana, and tobacco) with several recent admissions for EtOH withdrawal presents to [facility] ED on 10/22/17 for EtOH withdrawal. Patient with several recent hospitalizations over the past few months for EtOH withdrawal. He was last discharged from [facility] on 09/26/17. He endorses that since discharge he was admitted to [place] [facility] for about a week for suicidal ideation and was then discharged about couple of weeks ago. He states he has been sober since discharge until a few days prior to admission he got in a 'big fight with my girl' and went on a drinking binge. He states he drank two large bottles of mouth wash and then 'blacked out'. He does not recall but his girl told him he went to several bars. He eventually ended up at where he was found sitting in a wheelchair in the lobby on 10/20/17. He was taken to the ED where he was found to be stable and EtOH level elevated to 350. He was then discharge the following day. He states since leaving yesterday he has tried to hold off on drinking but felt himself going back into EtOH withdrawal. He endorses feeling shaky, nauseous, having auditory/ visual hallucinations. At home he tried to take a few sips of beer to help with the withdrawal but then decided to come in. ROS is otherwise positive for occasional, squeezing, left sided chest pain that last about an hour an then resolved. He also endorses watery diarrhea and some mld abdominal pain over the past few days. In the ED; VSS. CBC and RFP were unremarkable. EtOH level <10. He was stared on CIWA protocol and given one dose of Valium. He was then admitted to general medicine for further care. 10 point ROS negative except stated in HPI PMHx: as stated above Family Hx: denies any known history of MIs or CAD Social Hx: tobacco - 1/2 ppd and chewing tobacco has been sober since discharge except for one drinking binge occasional marijuana lives with girlfriend Home Medications (patient had bottle in with him): Gabapentin 800mg TID Buspirone 15mg Q8hr Geodon 60mg BID Folic Acid 1mg daily Trazodone 100mg QHS PRN Allergies: ? morphine: Hives/Urticaria ? Horse: Swelling/Edema, Anaphylaxis, Facial Swelling ? opiates: Unknown ? narcotic analgesics: Unknown Objective: Objective Information: T PRBPSpO2 [id number]/8795% Date/Time10/22 12:5510/22 12: 12:5510/22 12:5510/22 12:55 Range(36.6C - 36.9C ) (89 - 117 ) (16 - 20 ) (127 - 169 )/ (86 - 102 ) (95% - 99% ) Highest temp of 36.9 C was recorded at 8/3 6:04 Physical Exam: Constitutional: NAD Eyes: sclera anicteric ENMT: mucous membranes moist, tongue ring in place Respiratory/Thorax: Patent airways, CTAB, normal breath sounds with good chest expansion, thorax symmetric Cardiovascular: regular rate and rhythm Gastrointestinal: soft, non-tender Neurological: very mild tremor in right hand Psychological: appropriate mood and behavior. currently denies AH/ VH Skin: mildly diaphoretic, multiple tattoos over chest and upper extremities Medications: Medications: Continuous Medications No continuous medications are active Scheduled Medications 1. busPIRone: 15 mg Oral Every 8 Hours 2. Cholecalciferol (Vitamin D3): 2000 International Unit(s) Oral Daily 3. Folic Acid: 1 mg Oral Daily 4. Gabapentin: 800 mg Oral 3 Times a Day 5. Multivitamin with Minerals: 1 tablet(s) Oral Daily 6. Thiamine: 100 mg Oral Daily 7. Ziprasidone: 60 mg Oral 2 Times a Day PRN Medications 1. Acetaminophen: 650 mg Oral Every 4 Hours 2. diazePAM: 10 mg Oral Every 2 Hours 3. Ibuprofen: 600 mg Oral Every 8 Hours Recent Lab Results: Results: I have reviewed these laboratory results: Complete Blood Count 22-Oct-2017 10:12:00 ResultValue White Blood Cell Count 9.1 Nucleated Erythrocyte Count 0.0 Red Blood Cell Count 4.27 L HGB 13.7 HCT 39.5 L MCV 93 MCHC 34.7 PLT 210 RDW-CV 14.0 Basic Metabolic Panel 22-Oct-2017 10:12:00 ResultValue Glucose, Serum 93 NA 138 K 3.7 CL 102 Bicarbonate, Serum 27 Anion Gap, Serum 13 BUN 9 CREAT 0.67 GFR-Non >60 GFR- >60 Calcium, Serum 9.1 Ethanol Level 22-Oct-2017 10:12:00 ResultValue Ethanol Level <10 Assessment and Plan: Assessment: 37 year old male with past medical history of schizoaffective disorder and polysubstance abuse (EtOH, cocaine, marijuana, and tobacco) with several recent admissions for EtOH withdrawal presents to [facility] ED on 10/22/17 for EtOH withdrawal. EtOH Withdrawal: - continue CIWA with Valium - continue thiamine, folic acid, and MV - continue gabapentin - utox ordered Schizoaffective Disorder: - continue Geodon and Buspar Diet: - regular Ppx: - ambulate FULL CODE Hosp B Service: [id number] [id number] Signatures/Attestation/Certification: Attending Provider ? Inpatient Certification StatementI certify this patient?s need for inpatient care based on the above documentation including; the order to admit as inpatient, the anticipated length of stay, diagnosis, problem list and plan of care, and discharge plan. Electronic Signatures: Priti Gresham) (Signed 22-Oct-2017 14:48) Authored: History of Present Illness, Comorbidities, Allergies, Objective, Assessment and Plan, Signatures/Attestation/Certification Last Updated: 22-Oct-2017 14:48 by Priti Gresham) PATIENT PROFILE - Observed: 10/22/2017 Status: UNK Source: UNIVERSITY ADULT V2 1:58 PM HOSPITALS REPOSITORY Profile: Initial Info: How to be AddressedKurt Spoken Language PreferredEnglish (1) Source of Informationfamily Are you currently using the Personal Electronic Health Record or Screen Tonic Stated Reason for Admissionalcohol withdraw Arrived Fromemergency department Employment Statusdisabled(1) Patient Belongingsremains with patient Medications Brought to Hospitalno General Health: Weight in kg89.8 kilogram(s) Weight in exf865.9 pound(s) Height in cm190.5 centimeter(s) BMI (kg/m2)24.744 square meter Weight Methodactual (measured) Scale Typebed Height Methodstated RSP Based Care: How would you like to participate in your care?I need to get better What is the number one concern for you during this hospitalization?Getting help What is the most important thing we can do to support you during this hospitalization?Help me stop drinking Is there anything we need to know to best care for you?no Substance: Current or Former Substance Use never: e-Cigarette/Vaping YES: Cigarette/Tobacco(1), Alcohol(1), Street Drugs(1) Tobacco Cessation Education (provide if tobacco use within the last 12 mos) patient declined Alcohol Use Statuspast alcohol (1) Alcohol Amount7-9 drinks (1) Alcohol Frequencydaily (1) Alcohol Typeliquor; wine; beer(1) Method of Quittingdetox unit(1) Street Drug/Inhalant/ Medication Use Statuscurrent street drug/inhalant/medication abuse (1) Street Drug/Medication/ Inhalant Typemarijuana(1) Street Drug/Medication/ Inhalant Routesmoking(1) Frequency of Street Drug/Medication/Inhalant Use2-4 times/month (1) Health Mgmt: Symptoms/Conditions Managed at Homebehavioral health Behavioral Health Symptoms/Conditionssubstance use Behavioral Health Managementnot managed Relationship/Environ: Primary Source of Support/Comfortsignificant other Lives Withsignificant other Living Arrangementshouse Resource/Environmental Concernsnone Anticipated Transition [place] Services Anticipated at Transitionnone Significant IndicatorsComplete Information Review: ? Allergies, Home Meds and Significant Events have been Reviewed and Verified with Patient/Familyyes ALLERGY, INTOLERANCE, ADVERSE EVENT: Allergies: ? morphine: Drug, Hives/Urticaria, Active ? Horse: Environment, Swelling/Edema, Anaphylaxis, Facial Swelling, Active ? opiates: Drug Category, Unknown, Active ? narcotic analgesics: Drug Category, Unknown, Active Electronic Signatures: Izzy Banda (STAFF N) (Signed 22-Oct-2017 14:00) Authored: Profile, Additional Information Last Updated: 22-Oct-2017 14:00 by Izzy Banda (STAFF N) References: 1. Data Referenced From Patient Profile - Adult v2 09/23/2017 3:16 AM ADMISSION RISK SCREEN Observed: 10/22/2017 Status: UNK Source: UNIVERSITY - ADULT 1:54 PM HOSPITALS REPOSITORY Allergies: Allergies: ? morphine: Hives/Urticaria ? Horse: Swelling/Edema, Anaphylaxis, Facial Swelling ? opiates: Unknown ? narcotic analgesics: Unknown Patient Verification: ? New W ID Band Applied in my Departmentyes ? Patient Identity Verified Bypatient ? ID Band FULL Name, include Middle, spelling matches patient's ID used for verificationyes ? ID Band Matches Patient ID used for Verficationyes ? ID Band MRN Matches EMR MRAp Advance Directive: ? Advance Directive Medicalno (1) ? Advance Directive Information Givenpatient/family declined ? Advance Directive Mental Healthnot applicable Falls Screen: Type of Assessmentadmission Moderate Risk Factorspatient care equipment (scds, iv?s, chest tubes, mohr, etc) High Risk Factorsgait instability Risk for Injury Associated with Fallnone Fall Risk Conclusionhigh falls risk with low risk for associated injury [place] Safety InterventionsWDL *orient to call system *instruct to call for assistance before getting out of bed *non-slip footwear when patient is out of bed *call cardona in reach *personal items and telephone in reach *physically safe environment (no spills or clutter) *bed in lowest position with wheels locked *appropriate side rails in place *room/bathroom lighting operational, light cord in reach *appropriate signage on door Fall and Injury Risk Interventionseducate patient/family for risk for injury (fractures and bleeding) Family Violence Screen: ? Are you or have you been threatened or abused physically, emotionally, or sexually by anyone?no ? Do you feel UNSAFE going back to the place where you are living?no ? Clinical assessment: Are there any apparent signs of injuries/behaviors that could be related to abuse/neglectno ? Social Service Consult for abuse/neglect needed this visit?yes ? Abuse Screen Commentalcohol abuse; requesting to talking to someone Functional screen: ? Functional Screen: In the recent/past 2-4 weeks, patient or family have noticedno issues that require a rehabilitation consult at this time Learning Assessment (Patient): ? Patient is Able to be Assessed for Learningyes ? Factors Influencing Readiness to Learnacuteness of illness; fatigue ? Factors that Impact Ability to Learnacuteness of illness ? Devices/Methods Used to Communicatecommunication board ? Learning Preferencesverbal instruction ? Cultural Considerationsnone ? Developmental Considerationsnone ? Orthodox Considerationsnone Learning Assessment (Other Learner): ? Other learner availableno Suicide/Depression Screen: ? During the past month, have you often been bothered by feeling down, depressed or hopeless?no (1) ? During the past month, have you often had little interest or pleasure in doing things?no (1) ? Have you had any thoughts of harming yourself?no (1) ? Have you had any thoughts of harming anyone else?no (1) Adult Nutrition Screen: ? Have you recently lost weight without tryingno ? Have you been eating poorly because of a decreased appetiteno ? MST Score0 ? RiskMST = 0 or 1 Not at risk. Eating well with little or no weight loss ? Nutrition Consult needed this visit?no ? Can Patient Participate in Room Service?yes ? Patient requires Paper Dishes/Plastic Utensilsno Pain Screen: ? Pain Scalenumerical 0-10 ? Pain Scale Educationteaching provided ? Current Pain Level4 = Moderate ? Acceptable Pain Level0 = None ? Expression of Pain (nonverbal)verbalization ? Chronic Painno Spiritual Screen: ? Are there any cultural, spiritual, anglican practices/values/needs that are important for us to know?no CAGE: Is this an injured patient at a Trauma Center ([facility]): no (1) Vaccinations: Vaccination - Influenza Vaccination Screen: ? Is it flu season? (between and )No Vaccination - Pneumonia Vaccination Screen: ? Patient has received a previous pneumonia vaccine:no/unknown... ? Immunocompetent persons with underlying chronic conditions or reside in termite control technician care facilitiesnone of these conditions ? Persons with Functional or Anatomic Asplenianone of these conditions ? Immunocompromised Personsnone of these conditions ? Pneumonia vaccine NOT indicated due to:patient DOES NOT have a condition that indicates vaccination Malik: Skin - Malik Scale: ? Malik: Sensory Perception (response to environment)(4) no impairment ? Malik: Moisture (degree skin exposed to moisture)(4) rarely moist ? Malik: Activity (ability to walk)(3) walks occasionally ? Malik: Mobility (amount/control of body movement)(4) no limitation ? Malik: Nutrition (quality of food intake)(3) adequate ? Malik: Friction and Shear(3) no apparent problem ? Malik: Score21 Significant Indicatiors: Significant Indicators: Complete Pressure Injury: Pressure Injury Present on Admissionno Electronic Signatures: Izzy Banda (STAFF N) (Signed 22-Oct-2017 13:57) Authored: Admission Risk Screens, Vaccinations, Malik, Pressure Injury Last Updated: 22-Oct-2017 13:57 by Izzy Banda (STAFF N) References: 1. Data Referenced From Risk Screen - Adult Emergency 10/22/2017 6:07 AM DISCHARGE PLANNING Observed: 10/22/2017 Status: UNK Source: UNIVERSITY NOTE 12:52 PM HOSPITALS REPOSITORY Patient Learning: ? Factors that Impact Ability to Learnnone(1) Discharge Planning: Discharge Planning: Date: 10/22/17, 854 icu rn Note: DX: c/o Symptoms of withdrawal including tremor, anxiety, and tachycardia pMH: mental health, alcohol abuse patient lives with friends Primary Support Person: as above ADL's: independent Recent Falls: NO DME @ Home: none Recent HC or Facility Placement: None Preferences for HC or Facility Offered: N/A 02/Diabetic/Dialysis: denies Any cultural/spiritual/anglican needs we need to address: none noted did verify dermographics SW Needs: need resources for rehab Financial Concerns: denies Transport @ DC: may need transportation issue: patient admitted for W/D of ETOH. Blood alcohol level is 350. patient states that he was recently a rehab at [facility] last week and states that his plan once discharge from there was to go to [facility] yesterday but wasn't able to make it to his appt. did call [facility] and the intake states they are out of Beds. also called [facility] who decline to accept at this time. plan to admitt Gricelda Hodges RN,[id number] 10/22/2017 Admission 1330 Patient admitted for alcohol withdraw. Patient reported mild WILLIS and nausea at admission. Per patient, motivated for treatment. Patient given 10 of valium for CIWA of 8 when arriving to unit. Patient belongings at bedside. Inpatient or outpatient rehab expected at time of discharge. Izzy Banda RN Electronic Signatures: Gricelda Hodges (ENTRY LEVEL ACCOUNT MANAGER) (Signed 22-Oct-2017 13:06) Authored: Discharge Planning Note Izzy Banda (STAFF N) (Signed 22-Oct-2017 14:25) Authored: Discharge Planning Note Last Updated: 22-Oct-2017 14:25 by Izzy Banda (STAFF N) References: 1. Data Referenced From Risk Screen - Adult Emergency 10/22/2017 6:07 AM CBC Collected: 10/22/2017 Status: F Source: DRIVER 10:12 AM HOSPITALS REPOSITORY TYPE CODE TESTS RESULT OUT OF REFERENCE UNITS RANGE LAB WBCR(LOINC 4.4 - 11.3 x10E9/L ) WBC 9.1 LAB NRBC(LOINC 0.0-0.0 /100 WBC ) NUCLEATED RBC 0.0 LAB RBCCT(LOIN 4.50 - 5.90 x10E12/L C) Low RBC 4.27 LAB HGB(LOINC) 13.5 - 17.5 g/dL HGB 13.7 LAB HCT(LOINC) 41.0 - 52.0 % Low HCT 39.5 LAB MCV(LOINC) 80 - 100 fL MCV 93 LAB MCHC2(LOIN 32.0 - 36.0 g/dL C) MCHC 34.7 LAB PLTCT(LOIN 150 - 450 x10E9/L C) PLT 210 LAB RDWCV(LOIN 11.5 - 14.5 % C) RDW-CV 14.0 Performed By: #### CBC #### [facility] [address] [place] [id number] ALCOHOL Collected: 10/22/2017 Status: F Source: DRIVER 10:12 AM HOSPITALS REPOSITORY TYPE CODE TESTS RESULT OUT OF REFERENCE UNITS RANGE LAB ALC(LOINC) mg/dL ALCOHOL <10 Result Comment: FOR MEDICAL USE ONLY. . REF VALUES <10 Performed By: #### ALC #### [facility] [address] [place] [address] BASIC METABOLIC PANEL Collected: 10/22/2017 Status: F Source: DRIVER 10:12 HOSPITALS REPOSITORY TYPE CODE TESTS RESULT OUT OF REFERENCE UNITS RANGE LAB GLU(LOINC) 74 - 99 mg/dL GLUCOSE 93 LAB SOD(LOINC) 136 - 145 mmol/L SODIUM 138 LAB K(LOINC) 3.5 - 5.3 mmol/L POTASSIUM 3.7 LAB CHLOR(LOIN 98 - 107 mmol/L C) CHLORIDE 102 LAB BIC(LOINC) 21 - 32 mmol/L BICARBONATE 27 LAB ANGAP(LOIN 10 - 20 mmol/L C) ANION GAP 13 LAB UREA(LOINC 6 - 23 mg/dL ) UREA NITROGEN 9 LAB CREA(LOINC 0.50 - 1.30 mg/dL ) CREATININE 0.67 LAB GFRFN(LOIN >60 mL/min/1.7 C) 3m2 GFR-NON AM. >60 LAB GFRAA(LOIN >60 mL/min/1.7 C) 3m2 GFR- AM. >60 Result Comment: CALCULATIONS OF ESTIMATED GFR ARE PERFORMED USING THE MDRD STUDY EQUATION FOR THE IDMS-TRACEABLE CREATININE METHODS. CLIN CHEM 2007;53:766-72 LAB CA(LOINC) 8.6 - 10.6 mg/dL CALCIUM 9.1 Performed By: #### BMP #### [facility] [address] [place] [address] PROVIDER NOTE - ED Observed: 10/22/2017 Status: COMPLETED Source: UNIVERSITY V2 7:08 AM HOSPITALS REPOSITORY Provider Note - ED v2: Chart Review: ED NOTES ED NOTES: History of present illness: Patient is a 37-year-old male presenting for a cholesterol. Patient states that he was sober for approximately total of 2 weeks and relapsed 3 days ago and now is experiencing symptoms of withdrawal including tremor, anxiety, and tachycardia. His last beer was yesterday to calm his symptoms since he has been trying to wean from home. Review of systems is negative for any fevers and chills, headache, blurry vision, chest pain, shortness of breath, abdominal pain, change in bowel habits, change in bladder habits, weakness or numbness, easy bruising, hallucinations Past medical history: GERD, mental health, alcohol abuse Medications: Naltrexone, morphine, gabapentin, omeprazole Allergies: Morphine Social: Denies tobacco use, alcohol abuse disorder, denies all other drug use Physical Exam: Appearance: Alert, oriented , cooperative, in no acute distress. Skin: Intact, dry skin, no lesions, rash, petechiae or purpura. Eyes: PERRLA, EOMs intact, No scleral icterus. ENT: Hearing grossly intact. mucus membranes moist. Dentition without lesions. Neck: Supple, Trachea at midline. Pulmonary: Clear bilaterally with good chest wall excursion. No rales, rhonchi or wheezing. No accessory muscle use or stridor. Cardiac: Normal S1, S2 without murmur, rub, gallop or extrasystole. Abdomen: Soft, nontender, No palpable organomegaly. No rebound or guarding. Genitourinary: Exam deferred. Musculoskeletal: Full range of motion. no pain, edema, or deformity. Pulses full and equal. Neurological: Cranial nerves II through XII are grossly intact, 5 out of 5 strength in bilateral upper and lower extremities, normal sensation and equal bilaterally, there is a slight resting tremor of bilateral upper extremities. Psychiatric: Patient appears anxious but has an appropriate affect Hospital course: Patient is a 37-year-old male presenting for alcohol withdrawal. History and physical exam was concerning for alcohol withdrawal. The patient was given folate, thiamine. Patient currently has a CIWA score of 8 and was given Valium for his symptoms. His tachycardia and hypertension did improve after this dosing. The CIWA score decreased to 5. Our social work team did evaluate the patient for potential placement to inpatient rehabilitation for detox but since he was recently discharged out of a rehabilitation center left 3 days ago his insurance will not cover and the facility that released him currently does not have a bed. The patient was then admitted to the internal medicine service for alcohol withdrawal since he is adamant about not drinking in the future. HISTORY OF PRESENTING ILLNESS ZAINA was seen by me at 22-Oct-2017 06:22. Other complaints include: states he woke up here yesterday morning doesn't know how he got here and was discharged yesterday is having withdrawal symptoms, patient is having nausea, vomiting, diarrhea, shaking. patient states that he relapsed, had been sober for a couple of weeks, and blacked out.(1). Triage Information: Most recent Vital Sign Value Date Temp (F): 98.4 10-22-2017 06:04 Temp (C): 36.9 10-22-2017 06:04 Heart Rate (beats/min): 117 10-22-2017 06:04 Respirations (breaths/min): 16 10-22-2017 06:04 SpO2 (%): 98 10-22-2017 06:04 BP Systolic (mm Hg): 169 10-22-2017 06:04 BP Diastolic (mm Hg): 91 10-22-2017 06:04 PAST MEDICAL HISTORY ATTESTATION: I have reviewed and confirmed nurse's/medic's notes for patient's medications, allergies, medical history, and surgical history ALLERGIES/INTOLERANCES: Allergy Allergen: morphine Type: Drug Reaction: Hives/Urticaria Allergen: Horse Type: Environment Reaction: Swelling/Edema Anaphylaxis Facial Swelling Allergen: opiates Type: Drug Category Reaction: Unknown Allergen: narcotic analgesics Type: Drug Category Reaction: Unknown HEALTH HISTORY: Medical History Name:Schizoaffective disorder Code:F25.9 Name:Alcohol addiction Code:F10.20 Name:Overdose of antipsychotic Code:T43.501A Name:Overdose of antidepressant Code:T43.201A Name:Alcohol dependence with uncomplicated withdrawal Code:F10.230 OUTPATIENT MEDICATIONS: Home Medications Review Status for Reconciliation: Not Done Med Status: Patient Currently Takes Medications Drug Name: gabapentin 400 mg oral capsule Instructions: 2 cap(s) orally 3 times a day Drug Name: busPIRone 15 mg oral tablet Instructions: 1 tab(s) orally every 8 hours Drug Name: folic acid 1 mg oral tablet Instructions: 1 tab(s) orally once a day Drug Name: traZODone 100 mg oral tablet Instructions: 1 tab(s) orally once a day (at bedtime) PRN Drug Name: ziprasidone 60 mg oral capsule Instructions: 1 cap(s) orally 2 times a day SIGNIFICANT EVENTS: Past Medical History Description:schizoaffective disorder Status:Active Description:GERD Status:Active Description:Hypertension (HTN) Status:Active Description:EtOH abuse Status:Active Description:Seizure Disorder Additional Notes:from alcohol withdraw Status:Active CLINICAL IMPRESSION Diagnosis/Annotation: ED Dx Name:Alcohol withdrawal Code:F10.239 Prelim Disch Dx Name:Alcohol withdrawal Code:F10.239 Dispostion: hospitalized Admit to: Telemetry. Admitting Considerations: fall/safety concern Condition on Disposition: stable ATTESTATION Attestation: I saw and evaluated the patient. I personally obtained the goodwin and critical portions of the history and physical exam or was physically present for goodwin and critical portions performed by the resident/fellow. I reviewed the resident/fellow?s documentation and discussed the patient with the resident/fellow. I agree with the resident/fellow?s medical decision making as documented in the resident?s note Comments/Additional Findings: I saw and evaluated the patient and discussed patient management with the resident. I reviewed the resident's note and agree with the documented findings and plan of care. CRITICAL CARE TIME Is this a critically ill patient?: no Electronic Signatures: Rebekah Mcarthur () (Signed 26-Oct-2017 06:57) Authored: Provider Note - ED v2 Co-Signer: Provider Note - ED v2 Richard Clayton (Resident)) (Signed 22-Oct-2017 16:38) Authored: Provider Note - ED v2 Last Updated: 26-Oct-2017 06:57 by Rebekah Mcarthur) References: 1. Data Referenced From Triage - ED 10/22/2017 6:04 AM RISK SCREEN - ADULT Observed: 10/22/2017 Status: UNK Source: [facility] 6:07 AM HOSPITALS REPOSITORY Preferred Language: Preferred Language: ? Preferred Language for Discussing Health Care (patient/designee)Sudanese Advanced Directives: ? Advance Directive Medicalno Family Violence Adult: Abuse Screen: ? Are you or have you been threatened or abused physically, emotionally, or sexually by anyone?no Suicide / Depression: Suicide/Depression Screen: ? During the past month, have you often been bothered by feeling down, depressed or hopeless?no ? During the past month, have you often had little interest or pleasure in doing things?no ? Have you had any thoughts of harming yourself?no (1) ? Have you had any thoughts of harming anyone else?no (1) Learning Assessment (Patient): Learning Assessment (Patient): ? Patient is Able to be Assessed for Learningyes ? Factors Influencing Readiness to Learninterest in learning ? Factors that Impact Ability to Learnnone ? Devices/Methods Used to Communicatenone ? Learning Preferencesverbal instruction ? Cultural Considerationsnone ? Developmental Considerationsnone ? Orthodox Considerationsnone Learning Assessment (Other Learner): Learning Assessment (Other Learner): ? Other learner availableno Fall Risk Adult: Falls Risk: ? Altered Mobilitynone ? Change in Mental Statusno ? Relevant Medical History / Diagnosisnone ? Fall Historynone ? Altered Eliminationno ? Medications that Might Alter: equilibrium, cognitive judgement or severity of injurynone ? Sensory Deficitno ? UNABLE or UNWILLING to Follow Directionsno ? Patient Identified as a Falls Riskno ? Provide Rationale not identified as Falls Riskno risk factors identified Pressure Injury: Pressure Injury Present on Admissionno Respiratory / Cough /TB: ED / TB / Cough / Respiratory Screen: ? Do you have a cough?no Smoking/Social History (Required age 13 or older): Smoking Status: current some day smoker Alcohol Use: history of abuse Drug Use: denies Admission Risk Screen: ? Significant IndicatorsComplete CAGE: CAGE: Is this an injured patient at a Trauma Center ([facility]): no Electronic Signatures: Thalia Egan) (Signed 22-Oct-2017 06:07) Authored: Preferred Language, Advanced Directives, Family Violence Adult, Suicide / Depression, Learning Assessment (Patient), Learning Assessment (Other Learner), Fall Risk Adult, Pressure Injury, Respiratory / Cough /TB, Smoking/Social History (Required age 13 or older), CAGE Last Updated: 22-Oct-2017 06:07 by Thalia Egan (RN) References: 1. Data Referenced From Triage - ED 10/22/2017 06:04 AM TRIAGE - ED Observed: 10/22/2017 Status: UNK Source: DRIVER 6:04 AM HOSPITALS REPOSITORY Quick Triage: The patient and/or guardian verbally acknowledges placement for services into the following (when Urgent Care Service hours are operating):emergency department Pain: Pain Rating (0-10): Rest5 Chart Review: CHIEF COMPLAINT ZAINA DOLL is a Male patient with a chief complaint of (ETOH withdrawal). Other Complaints: states he woke up here yesterday morning doesn't know how he got here and was discharged yesterday is having withdrawal symptoms, patient is having nausea, vomiting, diarrhea, shaking. patient states that he relapsed, had been sober for a couple of weeks, and blacked out. Triage Date/Time: 22-Oct-2017 06:04 Pain Rating (0-10): Rest: 5 Pain location: headache Vital Signs: Temperature: 98.4F ( 36.9C) taken forehead Blood Pressure: 169/91 Mean: Heart Rate: 117 Respiratory Rate: 16 Pulse Oximetry: 98% on room air, no respiratory support. Height: 6 feet 3.00 inches. 190.5 CM Weight: 185.0 pounds. Calculated 83.9 kg. Calculated BMI (kg/m2): 23.119 Calculated BSA (m2) 2.11 Allergies: yes Patient has suicidal thoughts: no Patient has homicidal thoughts: no GEOVANNA: 3 PAIN Pain Scale Used: ALLI Past Medical History: ? Past Medical History Reviewedyes Electronic Signatures: Thalia Egan (GARY) (Signed 22-Oct-2017 06:07) Authored: Triage, Past Medical History Brandy Cardenas) (Signed 22-Oct-2017 06:22) Authored: Triage Last Updated: 22-Oct-2017 06:22 by Brandy Cardenas (GARY) PROVIDER NOTE - ED Observed: 10/20/2017 Status: COMPLETED Source: DRIVER V2 11:34 PM HOSPITALS REPOSITORY Provider Note - ED v2: Chart Review: ED NOTES ED NOTES: Source of information: Patient, Review of nursing notes History limitation: none Chief concern: Intoxication History of present illness: This is a 37-year-old male with a history of schizoaffective disorder and polysubstance abuse (EtOH, cocaine, marijuana, tobacco) with many prior admissions for alcohol withdrawal presenting with PD after being found sitting in a wheelchair in the hospital somewhere in [facility] with a wrist band on from another hospital. He had told the police and fire dispatcher that he wanted to come to ED. On arrival to the ED, he is intoxicated, lethargic but responds to painful stimuli. He appears to be protecting his airway and is able to vocalize intermittently. He is moving all extremities. PMH: as above PSH: reviewed MEDs: Multiple Vitamins with Minerals oral tablet - 1 tab(s) orally once a day gabapentin 400 mg oral capsule - 2 cap(s) orally 3 times a day busPIRone 15 mg oral tablet - 1 tab(s) orally every 8 hours pantoprazole 40 mg oral delayed release tablet - 1 tab(s) orally 2 times a day Geodon 40 mg oral capsule - 1 cap(s) orally 2 times a day folic acid 1 mg oral tablet - 1 tab(s) orally once a day thiamine 100 mg oral tablet - 1 tab(s) orally once a day cholecalciferol 1000 intl units oral tablet - 2 tab(s) orally once a day Allergies: morphine, opiates SH: polysubstance abuse, tobacco use, homelessness ROS: Unable to obtain 2/2 intoxication Exam: Vitals as documented in the chart General: Lethargic, intoxicated, opens eyes and moans in response to painful stimuli, moving all extremities Head: Normocephalic, atraumatic Eyes: Anicteric, Normal conjunctiva, PERRL (5mm >3mm) HEENT: Mucous membranes moist, no oral lesions identified. Neck: Supple, normal rom CV: RRR, no appreciated mumurs/rubs/gallops. Resp: No respiratory distress. Equal chest rise. ABD: Soft and nondistended. Non rigid. Neuro: lethargix, intoxicated, responds to painful stimuli Extremities: Bilateral LEs soft and nontender, no musculoskeletal deformities. No LE edema. Peripheral pulses 2+ and equal Skin: Warm, dry, no cyanosis, no rash Psych: intoxicated ECG: Normal sinus rhythm at 81 bpm, normal axis, normal FL and QT intervals, no acute ischemic changes Hospital Course/Medical decision makin-year-old male with a history of polysubstance abuse, well known to the ED with multiple visits for intoxication and multiple admissions for alcohol withdrawal in the past, most recently discharged on September 26, 2017 with outpatient resources, presenting today with police after being found passed out on a wheelchair in [facility] with a wrist band on from a different hospital. On arrival, he is intoxicated and lethargic but responds to painful stimuli. He is not answering any questions. There are no signs of trauma on exam. He did have a period of desaturation, which improved after painful stimulation. A nasopharyngeal airway was placed. Given prior presentations, he is most likely intoxicated with EtOH. Will obtain some basic labs and he will be monitored closely in the ED until clinically sober. He will be signed out to the oncoming care team pending reevaluation. Diagnoses: intoxication Disposition: pending D/w Dr. Lizabeth Xavier MD Emergency Medicine - PGY2 HISTORY OF PRESENTING ILLNESS ZAINA was seen by me at 20-Oct-2017 22:48 for a chief complaint of intoxication(1). Other complaints include: patient found wandering [facility]. patient brought down to ED by [facility]. patient known to ER. hx ETOH abuse(1). Triage Information: Most recent Vital Sign Value Date Temp (F): 98.2 10-20-2017 23:08 Temp (C): 36.8 10-20-2017 23:08 Heart Rate (beats/min): 84 10-20-2017 23:08 Respirations (breaths/min): 16 10-20-2017 23:08 SpO2 (%): 94 10-20-2017 23:08 BP Systolic (mm Hg): 103 10-20-2017 23:08 BP Diastolic (mm Hg): 67 10-20-2017 23:08 PAST MEDICAL HISTORY ATTESTATION: I have reviewed and confirmed nurse's/medic's notes for patient's medications, allergies, medical history, and surgical history ALLERGIES/INTOLERANCES: Allergy Allergen: morphine Type: Drug Reaction: Hives/Urticaria Allergen: Horse Type: Environment Reaction: Swelling/Edema Anaphylaxis Facial Swelling Allergen: opiates Type: Drug Category Reaction: Unknown Allergen: narcotic analgesics Type: Drug Category Reaction: Unknown HEALTH HISTORY: Medical History Name:Schizoaffective disorder Code:F25.9 Name:Alcohol addiction Code:F10.20 Name:Overdose of antipsychotic Code:T43.501A Name:Overdose of antidepressant Code:T43.201A Name:Alcohol dependence with uncomplicated withdrawal Code:F10.230 OUTPATIENT MEDICATIONS: Home Medications Review Status for Reconciliation: N/A Med Status: Patient Currently Takes Medications Drug Name: gabapentin 400 mg oral capsule Instructions: 2 cap(s) orally 3 times a day Drug Name: busPIRone 15 mg oral tablet Instructions: 1 tab(s) orally every 8 hours Drug Name: folic acid 1 mg oral tablet Instructions: 1 tab(s) orally once a day Drug Name: traZODone 100 mg oral tablet Instructions: 1 tab(s) orally once a day (at bedtime) PRN Drug Name: ziprasidone 60 mg oral capsule Instructions: 1 cap(s) orally 2 times a day SIGNIFICANT EVENTS: Past Medical History Description:schizoaffective disorder Status:Active Description:GERD Status:Active Description:Hypertension (HTN) Status:Active Description:EtOH abuse Status:Active Description:Seizure Disorder Additional Notes:from alcohol withdraw Status:Active RESULTS/VITAL SIGNS VITAL SIGNS: T PRBP SpO2O2(LPM) %FiO2 Method 20-Oct-2017 23:08:[id number] 94 room air, no respiratory support CLINICAL IMPRESSION Diagnosis/Annotation: ED Dx Name:Acute alcohol intoxication Code:F10.929 Dispostion: discharged (pending: reeval for clinical sobriety) ATTESTATION Attestation: I saw and evaluated the patient. I personally obtained the goodwin and critical portions of the history and physical exam or was physically present for goodwin and critical portions performed by the resident/fellow. I reviewed the resident/fellow?s documentation and discussed the patient with the resident/fellow. I agree with the resident/fellow?s medical decision making as documented in the resident/fellow?s note with the exception/addition of the following Comments/Additional Findings: Patient presents to the emergency department acutely intoxicated, somnolent but arouses to voice and noxious stimuli maintaining an airway and spontaneous respirations. Pupils are normal no concern for narcotic overdose, does smell like alcohol with history of chronic alcohol abuse. IV established, placed on supplemental oxygen, elevated head of bed. We'll monitor the patient closely. Patient senators receiving ED team, follow-up on all labs, reassess the patient. I anticipate if clinically sober on reevaluation, tolerating oral intake with no sign of any pathology is stable potential discharge home with advisement to drink in moderation EKG was evaluated by attending, agree with resident/SIMEON evaluation as mentioned above Opal Barone, [facility] for Emergency Medicine I have personally performed and/or participated in all of the above services and procedures. I have reviewed all the nurses' notes and have confirmed their findings, and have incorporated those findings into this medical record. I have reviewed the resident history and physician finding; as well as the treatment. On my own examination I agree and incorporated in this document my own history, examination findings and clinical decision making. All notation in this Addendum supersedes information presented by the resident or SIMEON as listed above. CRITICAL CARE TIME Is this a critically ill patient?: no Electronic Signatures: Opal Barone () (Signed 25-Oct-2017 15:03) Authored: Provider Note - ED v2 Co-Signer: Provider Note - ED v2 Rebeca Xavier (Resident)) (Signed 20-Oct-2017 23:59) Authored: Provider Note - ED v2 Last Updated: 25-Oct-2017 15:03 by Opal Barone () References: 1. Data Referenced From Triage - ED 10/20/2017 11:08 PM RISK SCREEN - ADULT Observed: 10/20/2017 Status: UNK Source: [facility] 11:10 PM HOSPITALS REPOSITORY Preferred Language: Preferred Language: ? Preferred Language for Discussing Health Care (patient/designee)Sudanese Advanced Directives: ? Advance Directive Medicalunable to answer Family Violence Adult: Abuse Screen: ? Are you or have you been threatened or abused physically, emotionally, or sexually by anyone?no Suicide / Depression: Suicide/Depression Screen: ? During the past month, have you often been bothered by feeling down, depressed or hopeless?unable to assess ? During the past month, have you often had little interest or pleasure in doing things?unable to assess ? Have you had any thoughts of harming yourself?unable to assess ? Have you had any thoughts of harming anyone else?unable to assess Learning Assessment (Patient): Learning Assessment (Patient): ? Patient is Able to be Assessed for Learningno ? Reason Unable to Assessunconscious Learning Assessment (Other Learner): Learning Assessment (Other Learner): ? Other learner availableno Fall Risk Adult: Falls Risk: ? Altered Mobilityunsteady gait ? Change in Mental Statusyes ? Relevant Medical History / Diagnosisnone ? Fall Historyunknown ? Altered Eliminationunknown ? Medications that Might Alter: equilibrium, cognitive judgement or severity of injurynone ? Sensory Deficityes ? UNABLE or UNWILLING to Follow Directionsyes ? Patient Identified as a Falls Riskyes Pressure Injury: Pressure Injury Present on Admissionno Respiratory / Cough /TB: ED / TB / Cough / Respiratory Screen: ? Do you have a cough?no Smoking/Social History (Required age 13 or older): Smoking Status: unknown if ever smoked Alcohol Use: history of abuse Admission Risk Screen: ? Significant IndicatorsComplete CAGE: CAGE: Is this an injured patient at a Trauma Center ([facility]): no Electronic Signatures: Za Santizo) (Signed 20-Oct-2017 23:10) Authored: Preferred Language, Advanced Directives, Family Violence Adult, Suicide / Depression, Learning Assessment (Patient), Learning Assessment (Other Learner), Fall Risk Adult, Pressure Injury, Respiratory / Cough /TB, Smoking/Social History (Required age 13 or older), CAGE Last Updated: 20-Oct-2017 23:10 by Za Santizo) TRIAGE - ED Observed: 10/20/2017 Status: UNK Source: DRIVER 11:08 PM HOSPITALS REPOSITORY Chart Review: CHIEF COMPLAINT ZAINA DOLL is a Male patient with a chief complaint of intoxication. Other Complaints: patient found [place]. patient brought down to ED by [facility]. patient known to ER. hx ETOH abuse Triage Date/Time: 20-Oct-2017 22:55 Vital Signs: Temperature: 98.2F ( 36.8C) taken temporal Blood Pressure: 103/67 Mean: Heart Rate: 84 Respiratory Rate: 16 Pulse Oximetry: 94% on room air, no respiratory support. Height: 6 feet 0.00 inches. 182.8 CM Weight: 180.0 pounds. Calculated 81.6 kg. (stated) Calculated BMI (kg/m2): 24.419 Calculated BSA (m2) 2.04 Allergies: unknown GEOVANNA: 2 PAIN Pain Scale Used: ALLI Past Medical History: ? Past Medical History Reviewedyes Electronic Signatures: Za Santizo) (Signed 20-Oct-2017 23:09) Authored: Triage, Past Medical History Last Updated: 20-Oct-2017 23:09 by Za Santizo) CBC AND DIFFERENTIAL Collected: 10/20/2017 Status: F Source: DRIVER 11:04 PM HOSPITALS REPOSITORY TYPE CODE TESTS RESULT OUT OF REFERENCE UNITS RANGE LAB WBCR(LOINC 4.4 - 11.3 x10E9/L ) WBC 9.7 LAB NRBC(LOINC 0.0-0.0 /100 WBC ) NUCLEATED RBC 0.0 LAB RBCCT(LOIN 4.50 - 5.90 x10E12/L C) Low RBC 4.12 LAB HGB(LOINC) 13.5 - 17.5 g/dL Low HGB 13.1 LAB HCT(LOINC) 41.0 - 52.0 % Low HCT 38.6 LAB MCV(LOINC) 80 - 100 fL MCV 94 LAB MCHC2(LOIN 32.0 - 36.0 g/dL C) MCHC 33.9 LAB PLTCT(LOIN 150 - 450 x10E9/L C) PLT 223 LAB RDWCV(LOIN 11.5 - 14.5 % C) RDW-CV 14.4 LAB NEUT(LOINC 40.0 - 80.0 % ) % NEUTROPHIL 62.5 LAB IG(LOINC) 0.0 - 0.9 % % AUTOMATED 0.7 IMMATURE GRAN Result Comment: Percent differential counts (%) should be interpreted in the context of the absolute cell counts (cells/L). LAB LYMPH(LOINC) 13.0 - 44.0 % % LYMPHOCYTE 23.8 LAB MONO(LOINC) 2.0 - 10.0 % % MONOCYTE 9.0 LAB EOS(LOINC) 0.0 - 6.0 % % EOSINOPHIL 3.0 LAB BASO(LOINC) 0.0 - 2.0 % % BASOPHIL 1.0 LAB #NEUT(LOINC) 1.20 - 7.70 x10E9/L NEUTROPHIL 6.05 LAB #LYMP(LOINC) 1.20 - 4.80 x10E9/L LYMPHOCYTE 2.30 LAB #MONO(LOINC) 0.10 - 1.00 x10E9/L MONOCYTE 0.87 LAB #EOS(LOINC) 0.00 - 0.70 x10E9/L EOSINOPHIL 0.29 LAB #BASO(LOINC) 0.00 - 0.10 x10E9/L BASOPHIL 0.10 Performed By: #### CBCDF #### [facility] [id number] [place] [address] ALCOHOL Collected: 10/20/2017 Status: F Source: DRIVER [address] [place] [address] REPOSITORY TYPE CODE TESTS RESULT OUT OF RANGE REFERENCE UNITS LAB ALC(LOINC) mg/dL Abnormal ALCOHOL 350 Result Comment: FOR MEDICAL USE ONLY. . REF VALUES <10 Performed By: #### ALC #### [facility] [id number] [place] [address] RENAL FUNCTION PANEL Collected: 10/20/2017 Status: F Source: DRIVER [address] [place] [address] REPOSITORY TYPE CODE TESTS RESULT OUT OF REFERENCE UNITS RANGE LAB GLU(LOINC) 74 - 99 mg/dL GLUCOSE 98 LAB SOD(LOINC) 136 - 145 mmol/L SODIUM 139 LAB K(LOINC) 3.5 - 5.3 mmol/L POTASSIUM 4.1 LAB CHLOR(LOIN 98 - 107 mmol/L C) CHLORIDE 102 LAB BIC(LOINC) 21 - 32 mmol/L BICARBONATE 26 LAB ANGAP(LOIN 10 - 20 mmol/L C) ANION GAP 15 LAB UREA(LOINC 6 - 23 mg/dL ) UREA NITROGEN 16 LAB CREA(LOINC 0.50 - 1.30 mg/dL ) CREATININE 0.76 LAB GFRFN(LOIN >60 mL/min/1.7 C) 3m2 GFR-NON AM. >60 LAB GFRAA(LOIN >60 mL/min/1.7 C) 3m2 GFR- AM. >60 Result Comment: CALCULATIONS OF ESTIMATED GFR ARE PERFORMED USING THE MDRD STUDY EQUATION FOR THE IDMS-TRACEABLE CREATININE METHODS. CLIN CHEM 2007;53:766-72 LAB CA(LOINC) 8.6 - 10.6 mg/dL CALCIUM 9.3 LAB PHOS(LOINC) 2.5 - 4.9 mg/dL PHOSPHORUS 4.4 Result Comment: The performance characteristics of phosphorus testing in heparinized plasma have been validated by the individual laboratory site where testing is performed. Testing on heparinized plasma is not approved by the FDA; however, such approval is not necessary. LAB ALB(LOINC) 3.4 - 5.0 g/dL ALBUMIN 4.2 Performed By: #### RENAL #### [facility] [address] [place] [address] COOX PANEL,VENOUS Collected: 10/20/2017 Status: F Source: DRIVER 11:02 PM HOSPITALS REPOSITORY TYPE CODE TESTS RESULT OUT OF RANGE REFERENCE UNITS LAB COHGV(LOINC % ) Abnormal CO 5.7 HGB Result Comment: REF VALUES NONSMOKERS 0.5-1.5% SMOKERS 0.5-10.0% LAB METCV(LOINC) 0.0 - 1.5 % MET HGB 0.8 Performed By: #### COOXV #### [facility] [address] [place] [address] VENOUS FULL PANEL Collected: 10/20/2017 Status: F Source: DRIVER 11:02 HOSPITALS REPOSITORY TYPE CODE TESTS RESULT OUT OF REFERENCE UNITS RANGE LAB PHVEN(LOIN 7.33 - 7.43 C) pH 7.34 LAB PCO2V(LOIN 41 - 51 mmHg C) PCO2 High 56 LAB PO2V(LOINC 35 - 45 mmHg ) PO2 High 261 LAB TEMP(LOINC degrees C ) PATIENT TEMPERATURE 37.0 Result Comment: NOTE: PATIENT RESULTS ARE NOT CORRECTED FOR TEMPERATURE. LAB SO2%V(LOINC) 45 - 75 % SO2 High 100 LAB HCTN(LOINC) 41.0 - % 52.0 HCT 41.0 LAB SODN(LOINC) 136 - 145 mmol/L SODIUM 140 LAB POTN(LOINC) 3.5 - 5.3 mmol/L POTASSIUM 4.0 LAB CHLN(LOINC) 98 - 107 mmol/L CHLORIDE 106 LAB IONCA(LOINC) 1.10 - mmol/L 1.33 CALCIUM,IONIZED 1.13 LAB GLUN(LOINC) 74 - 99 mg/dL GLUCOSE 97 LAB LACTN(LOINC) 0.4 - 2.0 mmol/L LACTATE 1.8 LAB BSEXB(LOINC) -2.0 - 3.0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 fluent, Mood: Good, im not shaking anymore. Affect: full and congruent to the verbal content. Thought Process: Organized and Linear; Associations are logical Thought Content: Denies Ideations; No jessica delusions noted Thought Perception: Denies AVH; no PI. Pt doesn't appear internally stimulated Cognition: Alert, oriented x 4/4, No deficits noted. Adequate fund of knowledge. No deficit in recent and remote memory. No deficits in attention, concentration or language. Insight: poor Judgment: Poor Medications: Continuous Medications No continuous medications are active Scheduled Medications 1. busPIRone: 15 mg Oral Every 8 Hours 2. Cholecalciferol (Vitamin D3): 1000 International Unit(s) Oral Daily 3. Folic Acid: 1 mg Oral Daily 4. Gabapentin: 800 mg Oral 3 Times a Day 5. Multivitamin with Minerals: 1 tablet(s) Oral Daily 6. Nicotine 21 mg/ 24 hour TransDermal: 1 patch TransDermal Every 24 Hours 7. Pantoprazole: 40 mg Oral Daily 8. Thiamine IV Piggy Back: 500 mg IntraVenous Piggyback 3 Times a Day 9. Ziprasidone: 40 mg Oral 2 Times a Day PRN Medications 1. Acetaminophen: 650 mg Oral Every 4 Hours 2. Ibuprofen: 600 mg Oral Every 6 Hours 3. LORazepam: 2 mg Oral Every 2 Hours 4. Melatonin: 3 mg Oral At Bedtime Recent Lab Results: Results: I have reviewed these laboratory results: Complete Blood Count Trending View [id number] 06:50:00 23-Sep-2017 07:50:00 White Blood Cell Count6.0 5.8 Nucleated Erythrocyte Count0.0 0.0 Red Blood Cell Count4.33 L 4.12 L HGB13.9 13.1 L HCT42.5 39.3 L MCV98 95 MCHC32.7 33.3 VDA209 206 RDW-CV13.5 14.2 Renal Function Panel Trending View [id number] 06:50:00 23-Sep-2017 07:50:00 Glucose, Serum72 L 63 L NA140 140 K3.9 3.7 CL103 102 Bicarbonate, Serum26 28 Anion Gap, Serum15 14 BUN15 15 CREAT0.59 0.49 L GFR-Non >60 >60 GFR->60 >60 Calcium, Serum9.2 9.1 Phosphorus, Serum3.9 2.9 ALB3.6 3.7 Magnesium, Serum 24-Sep-2017 06:50:00 ResultValue Magnesium, Serum 2.02 Troponin I, Serum Trending View [id number] 06:50:00 23-Sep-2017 04:46:00 22-Sep-2017 20:52:00 Troponin I, Serum<0.02 <0.02 <0.02 Thyroid Stimulating Hormone, Serum 24-Sep-2017 06:50:00 ResultValue Thyroid Stimulating Hormone, Serum 2.45 Vitamin D (25-Hydroxy), Level 24-Sep-2017 06:50:00 ResultValue Vitamin D (25-Hydroxy), Level 15 A Glucose_POCT 23-Sep-2017 10:58:00 ResultValue Glucose-POCT 96 Complete Blood Count + Differential 22-Sep-2017 20:52:00 ResultValue White Blood Cell Count 6.7 Nucleated Erythrocyte Count 0.0 Red Blood Cell Count 4.31 L HGB 13.7 HCT 39.3 L MCV 91 MCHC 34.9 PLT 242 RDW-CV 14.1 Neutrophil % 62.2 Immature Granulocytes % 0.3 Lymphocyte % 28.6 Monocyte % 7.0 Eosinophil % 0.4 Basophil % 1.5 Neutrophil Count 4.19 Lymphocyte Count 1.93 Monocyte Count 0.47 Eosinophil Count 0.03 Basophil Count 0.10 Comprehensive Metabolic Panel 22-Sep-2017 20:52:00 ResultValue Glucose, Serum 93 NA 141 K 3.5 CL 102 Bicarbonate, Serum 26 Anion Gap, Serum 17 BUN 11 CREAT 0.54 GFR-Non >60 GFR- >60 Calcium, Serum 8.9 ALB 4.1 ALKP 120 T Pro 6.7 T Bili 0.7 Alanine Aminotransferase, Serum 22 Aspartate Transaminase, Serum 36 Ethanol Level 22-Sep-2017 20:52:00 ResultValue Ethanol Level 228 A Lipase, Serum 22-Sep-2017 20:52:00 ResultValue Lipase, Serum 51 Creatine Kinase, Level 22-Sep-2017 20:52:00 ResultValue Creatine Kinase, Level 639 H Assessment and Plan: Assessment: Mr. Doll is a 37 y/o male with a PMHx of: Schizoaffective Disorder, Anxiety Disorder, Polysubstance Abuse, and Alcohol Abuse Disorder, who presents for alcohol detoxification. Psychiatry was consulted on 09/23, to perform chem dep assessment. As of 09/25. No issues overnight. Pt is wanting to remain sober, poor insight and judgment around this. Given resources and discussed need for plan prior to leaving the hospital as he has many distractions once he leaves the hospital. no meds scheduled as need is not identified. Has chem dep resources, has active services through [facility] - has case assistant, and is able to do IOP there if he would commit to it. IMPRESSION: Alcohol Use Disorder, Severe, In a Controlled Environment Alcohol Withdrawal, with hx of DTs/Seizures Stimulant Use Disorder (Cocaine), Moderate, In a Controlled Environment Cannabis Use Disorder, Moderate, In a Controlled Environment Tobacco Use Disorder, Severe, In a Controlled Environment Nicotine Withdrawal Schizoaffective Disorder, Bipolar type vs. SIPD r/o SIMD r/o PTSD RECS: --No 1:1 Sitter necessary --Pt doesn't meet criteria for inpatient psychiatry --EKG done on 09/22, shows QTc= 453ms with ST --Continue scheduled Neurontin 800mg by mouth TID --Continue scheduled Buspar 15mg by mouth TID --Continue scheduled Geodon 40mg by mouth BID with meals (350+ calories) --START NRT daily for Nicotine cravings; Pt smokes 2 PPD, and chews tobacco >1 can per day --Continue scheduled Thiamine 500mg IV TID x 3 days, then DISCONTINUE, then thereafter, Please START scheduled Thiamine 100mg by mouth daily --Continue scheduled daily MV and Folic Acid --Continue scheduled Melatonin 3mg by mouth every evening at 20:00, for sleep consolidation --Please Monitor for Benzo Withdrawal: Please monitor for: HTN, tachycardia, diaphoresis, tremors, agitation, anxiety, hallucinations. If SBP >150 and/or HR >100, and/or diaphoresis and/or tremor noted, please give 2mg PO/IM Ativan for withdrawal symptoms and check vitals every 2 hours for withdrawal. --Non-Pharmacological Management: Please try to reinforce sleep hygiene protocol of: encouraging patient to try to stay awake as much as possible during the day to improve sleep hygiene. Also allow natural light during the day with curtains/blinds open during the day, frequent orientation and attempts to soothing music (from [employer]) etc... to encourage normal sleep/wake cycle. --Pt f/u with outpatient dual-diagnosis agency, [facility] on [facility] --Pt was provided with a local list of chem dep resources --Psychiatry will follow; Page [phone] with questions Medication Consent: Medication Consent: NA; consult service. Electronic Signatures: Domonique Peterson) (Signed 25-Sep-2017 18:34) Authored: Subjective Data, Objective, Assessment and Plan, Medication Consent, Signature/Cosignature/Attestation Last Updated: 25-Sep-2017 18:34 by Domonique Peterson) DAILY PROGRESS Observed: 09/25/2017 Status: COMPLETED Source: [facility]ERSITY NOTE-MEDICINE 1:26 PM HOSPITALS REPOSITORY Service: Medicine Subjective Data: ZAINA DOLL is a 37 year old Male who is Hospital Day # 4. No acute events overnight. Overall patient states he feels much better today. Had some elevated CIWAs yesterday evening but only scoring on subjective measures. CIWAs zero this am. Objective Data: Objective Information: T PRBPSpO2 [id number]/7796% Date/Time09/25 7: 7: 7: 7: 7:13 Range(35.6C - 36.5C ) (66 - 109 ) (18 - 20 ) (116 - 132 )/ (75 - 87 ) (96% - 98% ) Pain with Activity reported at 09/24 19:40: 6 Pain at Rest reported at 09/25 7:19: 9 Physical Exam: Constitutional: NAD Respiratory/Thorax: Patent airways, CTAB, normal breath sounds with good chest expansion, thorax symmetric Cardiovascular: regular rate and rhythm Gastrointestinal: soft, non-tender Neurological: no tremor or asterixis Medication: Medications: Continuous Medications No continuous medications are active Scheduled Medications 1. busPIRone: 15 mg Oral Every 8 Hours 2. Cholecalciferol (Vitamin D3): 1000 International Unit(s) Oral Daily 3. Folic Acid: 1 mg Oral Daily 4. Gabapentin: 800 mg Oral 3 Times a Day 5. Multivitamin with Minerals: 1 tablet(s) Oral Daily 6. Nicotine 21 mg/ 24 hour TransDermal: 1 patch TransDermal Every 24 Hours 7. Pantoprazole: 40 mg Oral Daily 8. Thiamine IV Piggy Back: 500 mg IntraVenous Piggyback 3 Times a Day 9. Ziprasidone: 40 mg Oral 2 Times a Day PRN Medications 1. Acetaminophen: 650 mg Oral Every 4 Hours 2. LORazepam: 2 mg Oral Every 2 Hours 3. Melatonin: 3 mg Oral At Bedtime Recent Lab Results: Results: I have reviewed these laboratory results: Complete Blood Count 25-Sep-2017 06:35:00 ResultValue White Blood Cell Count 5.5 Nucleated Erythrocyte Count 0.0 Red Blood Cell Count 4.24 L HGB 13.5 HCT 41.4 MCV 98 MCHC 32.6 PLT 192 RDW-CV 14.0 Renal Function Panel 25-Sep-2017 06:35:00 ResultValue Glucose, Serum 80 NA 139 K 3.8 CL 103 Bicarbonate, Serum 26 Anion Gap, Serum 14 BUN 13 CREAT 0.54 GFR-Non >60 GFR- >60 Calcium, Serum 9.2 Phosphorus, Serum 4.4 ALB 3.6 Magnesium, Serum 25-Sep-2017 06:35:00 ResultValue Magnesium, Serum 2.02 Assessment and Plan: Assessment: 37 year old male with past medical history of schizoaffective disorder and polysubstance abuse (EtOH, cocaine, marijuana, and tobacco) with several recent admissions for EtOH withdrawal presents to [facility] ED on 09/22/17 for EtOH withdrawal. EtOH Withdrawal: - Chem Dep Consulted - patient on CIWA with oral Ativan 2mg Q2hr for HR >100 and/ or SBP >150 and/ or diaphoresis and tremor - continue IV thiamine 500mg Q8hr x3 days (day #3) - TSH and B12 wnl - Vit D 15 -> started replacement with 1000U daily - continue CIWA Q2hr - continue folic acid and multivitamin - replete electrolytes PRN Hx Schizoaffective Disorder: - continue home gabapentin, Geodon, and Buspar for now Chest Pain: - per history appear atypical in setting of recent cocaine use - EKG with no acute changes - troponin neg x3 Other: - nicotine patch Diet: - regular Ppx: - ambulate FULL CODE Hosp B Service: 8a-8p [id number] [id number] Electronic Signatures: Priti Gresham) (Signed 25-Sep-2017 16:46) Authored: Service, Subjective Data, Objective Data, Assessment and Plan, Signature/Cosignature/Attestation Last Updated: 25-Sep-2017 16:46 by Priti Gresham) CONSULT Observed: 09/25/2017 Status: COMPLETED Source: DRIVER 12:56 PM HOSPITALS REPOSITORY Service: Consult: Consult requested by (Attending Name): wound care Allergies: ? morphine: Hives/Urticaria ? Horse: Swelling/Edema, Anaphylaxis, Facial Swelling ? opiates: Unknown ? narcotic analgesics: Unknown Assessment: Wound location: right ankle size: 1.5x2cm left ankle size: 1x1cm undermining: none tracking: none Wound type: abrasions Wound bed: pink Draining: none Periwound skin: intact Recommendation: Irrigate with normal saline or wound cleanser. Apply antibiotic ointment (like Bacitracin) and cover with mepilex daily. Plan: While inpatient, call with questions or if condition changes. Kalie Will RN CWON pager# [phone] Electronic Signatures: Kalie Will (RN) (Signed 25-Sep-2017 12:59) Authored: Service, Allergies, Assessment/Recommendations, Signature/Cosignature/Attestation Last Updated: 25-Sep-2017 12:59 by Kalie Will (GARY) CBC Collected: 09/25/2017 Status: F Source: DRIVER 6:35 AM [facility] REPOSITORY TYPE CODE TESTS RESULT OUT OF REFERENCE UNITS RANGE LAB WBCR(LOINC 4.4 - 11.3 x10E9/L ) WBC 5.5 LAB NRBC(LOINC 0.0-0.0 /100 WBC ) NUCLEATED RBC 0.0 LAB RBCCT(LOIN 4.50 - 5.90 x10E12/L C) Low RBC 4.24 LAB HGB(LOINC) 13.5 - 17.5 g/dL HGB 13.5 LAB HCT(LOINC) 41.0 - 52.0 % HCT 41.4 LAB MCV(LOINC) 80 - 100 fL MCV 98 LAB MCHC2(LOIN 32.0 - 36.0 g/dL C) MCHC 32.6 LAB PLTCT(LOIN 150 - 450 x10E9/L C) PLT 192 LAB RDWCV(LOIN 11.5 - 14.5 % C) RDW-CV 14.0 Performed By: #### CBC #### [facility] [id number] [place] [address] MAGNESIUM Collected: 09/25/2017 Status: F Source: DRIVER 6:35 AM [facility] REPOSITORY TYPE CODE TESTS RESULT OUT OF REFERENCE UNITS RANGE LAB MG(LOINC) 1.60 - 2.40 mg/dL MAGNESIUM 2.02 Performed By: #### MG #### [facility] [address] [place] [address] RENAL FUNCTION PANEL Collected: 09/25/2017 Status: F Source: DRIVER 6:35 AM HOSPITALS REPOSITORY TYPE CODE TESTS RESULT OUT OF REFERENCE UNITS RANGE LAB GLU(LOINC) 74 - 99 mg/dL GLUCOSE 80 LAB SOD(LOINC) 136 - 145 mmol/L SODIUM 139 LAB K(LOINC) 3.5 - 5.3 mmol/L POTASSIUM 3.8 Result Comment: MILD HEMOLYSIS DETECTED. The result may be falsely elevated due to hemolysis or other interferents. Clinical correlation is recommended. Repeat testing may be considered. LAB CHLOR(LOINC) 98 - 107 mmol/L CHLORIDE 103 LAB BIC(LOINC) 21 - 32 mmol/L BICARBONATE 26 LAB ANGAP(LOINC) 10 - 20 mmol/L ANION GAP 14 LAB UREA(LOINC) 6 - 23 mg/dL UREA NITROGEN 13 LAB CREA(LOINC) 0.50 - mg/dL 1.30 CREATININE 0.54 LAB GFRFN(LOINC) >60 mL/min/1.73m 2 GFR-NON AM. >60 LAB GFRAA(LOINC) >60 mL/min/1.73m 2 GFR- AM. >60 Result Comment: CALCULATIONS OF ESTIMATED GFR ARE PERFORMED USING THE MDRD STUDY EQUATION FOR THE IDMS-TRACEABLE CREATININE METHODS. CLIN CHEM 2007;53:766-72 LAB CA(LOINC) 8.6 - 10.6 mg/dL CALCIUM 9.2 LAB PHOS(LOINC) 2.5 - 4.9 mg/dL PHOSPHORUS 4.4 Result Comment: The performance characteristics of phosphorus testing in heparinized plasma have been validated by the individual laboratory site where testing is performed. Testing on heparinized plasma is not approved by the FDA; however, such approval is not necessary. LAB ALB(LOINC) 3.4 - 5.0 g/dL ALBUMIN 3.6 Performed By: #### RENAL #### [facility] [address] [place] [address] DISCHARGE PROFILE2 Observed: 09/24/2017 Status: UNK Source: DRIVER 2:01 PM HOSPITALS REPOSITORY Discharge Orders: Anticipated Discharge Date: ? Anticipated Discharge [id number] Problem List: Medical History: ? Schizoaffective disorder: Catalog Name: Schizoaffective disorder, unspecified Prelim Disch Dx: ? Alcohol withdrawal: Catalog Name: Alcohol dependence with withdrawal, unspecified Hospital Providers: Provider RoleProvider Name ? ConsultingPsych Consult ? AttendingPriti Gresham DNAR: ? DNAR Statusnone Activity: activity as tolerated. Diet: ? Dietregular Call Provider If (Homegoing Patients): Any new concerning symptoms. Provider FINAL REVIEW of Orders: Final Review: ? Final Review of Medication Reconciliation and Orders Completedby Physician ? Reviewing ProviderSbear Suarez MD at 26-Sep-2017 10:58:29 Appointments: Follow-Up Appointment 01: ? Physician/Dept/ServicePrimary Care Physician ? Call to Schedule in1 week Follow-Up Appointment 02: ? Physician/Dept/ServicePsychiatrist ? Call to Schedule in1 week Electronic Signatures: Priti Gresham) (Signed 26-Sep-2017 10:58) Authored: Discharge Orders, Provider FINAL REVIEW of Orders, Appointments Carline Hernandez (SUSANA) (Signed 24-Sep-2017 14:01) Authored: Discharge Orders, Gold Form - Hay Stacker Summary Last Updated: 26-Sep-2017 10:58 by Priti Gresham) DAILY PROGRESS Observed: 09/24/2017 Status: COMPLETED Source: UNIVERSITY NOTE-MEDICINE 12:40 PM HOSPITALS REPOSITORY Service: Medicine Subjective Data: ZAINA DOLL is a 37 year old Male who is Hospital Day # 3. No acute events patient states overall he is feeling better today. Still with some mild tremor and nausea but no other specific physical complaints. CIWAs elevated yesterday but only required one dose of oral Ativan based on objective scores. CIWA 0-1 today. Objective Data: Objective Information: T PRBPSpO2 [id number]/7498% Date/Time09/24 11: 11: 11: 11: 11:27 Range(36.4C - 37.1C ) (60 - 112 ) (18 - 20 ) (113 - 130 )/ (72 - 87 ) (94% - 98% ) Highest temp of 37.1 C was recorded at 09/24 7:12 Pain with Activity reported at 09/24 8:17: 0 Pain at Rest reported at 09/24 8:17: 0 Physical Exam: Constitutional: NAD Respiratory/Thorax: Patent airways, CTAB, normal breath sounds with good chest expansion, thorax symmetric Cardiovascular: regular rate and rhythm Gastrointestinal: soft, non-tender Neurological: slight tremor. no asterixis. Medication: Medications: Continuous Medications No continuous medications are active Scheduled Medications 1. busPIRone: 15 mg Oral Every 8 Hours 2. Folic Acid: 1 mg Oral Daily 3. Gabapentin: 800 mg Oral 3 Times a Day 4. Multivitamin with Minerals: 1 tablet(s) Oral Daily 5. Nicotine 21 mg/ 24 hour TransDermal: 1 patch TransDermal Every 24 Hours 6. Pantoprazole: 40 mg Oral Daily 7. Thiamine IV Piggy Back: 500 mg IntraVenous Piggyback 3 Times a Day 8. Ziprasidone: 40 mg Oral 2 Times a Day PRN Medications 1. Acetaminophen: 650 mg Oral Every 4 Hours 2. LORazepam: 2 mg Oral Every 2 Hours 3. Melatonin: 3 mg Oral At Bedtime Recent Lab Results: Results: I have reviewed these laboratory results: Complete Blood Count 24-Sep-2017 06:50:00 ResultValue White Blood Cell Count 6.0 Nucleated Erythrocyte Count 0.0 Red Blood Cell Count 4.33 L HGB 13.9 HCT 42.5 MCV 98 MCHC 32.7 PLT 197 RDW-CV 13.5 Renal Function Panel 24-Sep-2017 06:50:00 ResultValue Glucose, Serum 72 L NA 140 K 3.9 CL 103 Bicarbonate, Serum 26 Anion Gap, Serum 15 BUN 15 CREAT 0.59 GFR-Non >60 GFR- >60 Calcium, Serum 9.2 Phosphorus, Serum 3.9 ALB 3.6 Magnesium, Serum 24-Sep-2017 06:50:00 ResultValue Magnesium, Serum 2.02 Troponin I, Serum 24-Sep-2017 06:50:00 ResultValue Troponin I, Serum <0.02 Thyroid Stimulating Hormone, Serum 24-Sep-2017 06:50:00 ResultValue Thyroid Stimulating Hormone, Serum 2.45 Vitamin B12, Serum 24-Sep-2017 06:50:00 ResultValue Vitamin B12, Serum 409 Vitamin D (25-Hydroxy), Level 24-Sep-2017 06:50:00 ResultValue Vitamin D (25-Hydroxy), Level 15 A Assessment and Plan: Assessment: 37 year old male with past medical history of schizoaffective disorder and polysubstance abuse (EtOH, cocaine, marijuana, and tobacco) with several recent admissions for EtOH withdrawal presents to [facility] ED on 09/22/17 for EtOH withdrawal. EtOH Withdrawal: - Chem Dep Consulted - patient on CIWA with oral Ativan 2mg Q2hr for HR >100 and/ or SBP >150 and/ or diaphoresis and tremor - continue IV thiamine 500mg Q8hr x3 days (day #2) - TSH and B12 wnl - Vit D 15 -> started replacement with 1000U daily - continue CIWA Q2hr - continue folic acid and multivitamin - replete electrolytes PRN Hx Schizoaffective Disorder: - continue home gabapentin, Geodon, and Buspar for now Chest Pain: - per history appear atypical in setting of recent cocaine use - EKG with no acute changes - troponin neg x3 Other: - nicotine patch Diet: - regular Ppx: - ambulate FULL CODE Hosp B Service: 8a-8p [id number] 8p-8a [id number] Electronic Signatures: Priti Gresham) (Signed 24-Sep-2017 18:33) Authored: Service, Subjective Data, Objective Data, Assessment and Plan, Signature/Cosignature/Attestation Last Updated: 24-Sep-2017 18:33 by Priti Gresham) DAILY PROGRESS NOTE - Observed: 09/24/2017 Status: COMPLETED Source: [facility] 10:58 AM HOSPITALS REPOSITORY Subjective Data: ZAINA DOLL is a 37 year old Male who is Hospital Day # 3. Pt was awake, laying in bed playing on his cell phone. When asked how he was feeling the pt reports, Alright. Pt denies SI/HI/AH/VH/but endorses occasional +TH. Pt denies h/a, n/v, and confusion/disorientation. Pt endorses 9/10 feelings of anxiety and 5-6/10 feelings of depression; 10= worst. Pt denies pain. Pt said he thinks he may still be going through a little of alcohol withdrawal and feels he had a little bit of the shakes; Of Note, none noted on interview. Pt also said he spoke with his SW about getting him connected for alcohol treatment, either as residential or outpatient. Pt reports he has a small appetite, and he denies issues with bladder/bowel movements. Pt said he slept overnight but reports broken sleep. Pt reports staff and treatment teams have been treating him great during this admission. Objective: Objective Information: T PRBPSpO2 [id number]/8796% Date/Time09/24 7: 7: 7: 7: 7:12 Range(36.4C - 37.1C ) (60 - 112 ) (18 - 20 ) (113 - 130 )/ (72 - 87 ) (94% - 98% ) Highest temp of 37.1 C was recorded at 09/24 7:12 Pain with Activity reported at 09/24 8:17: 0 Pain at Rest reported at 09/24 8:17: 0 ---- Intake and Output ----- Mn/Dy/Year TimeIntakeOutputNet Sep 23, 2017 10:00 pm000 Sep 23, 2017 2:00 [id number] The Intake and Output Totals for the last 24 hours are: IntakeOutputNet [id number] ---Intake--- Enteral - Oral PO Fluid/Feed (oral): 480 mL ---Output--- Intake Output Enteral - Oral 480 mL Mental Status Exam: General: Average size, CM, Appears stated age, Poor Hygiene- pt is Malodorous Appearance: Short brown hair, long bangs noted combed forward, tattoos notes on arms/legs, wearing black tank shirt, brown cargo shorts, and black sneakers, alert but notably diaphoretic Attitude: Cooperative, albeit somewhat guarded; Fair eye contact Behavior: Calm, In-Control, Non-Threatening Motor Activity: No PMA or PMR noted; No hand tremors noted, No TD/EPS noted; Gait was not assessed Speech: Clear, minimally spontaneous, fluent, with normal r/r/t/v Mood: Alright Affect: Constricted Thought Process: Organized and Linear; Associations are mostly logical Thought Content: Denies Ideations; No jessica delusions noted Thought Perception: Denies AVH, but endorses occasional +TH; Pt doesn't appear internally stimulated Cognition: Alert, oriented x 4/4, No deficits noted. Adequate fund of knowledge. No deficit in recent and remote memory. No deficits in attention, concentration or language. Insight: Fair Judgment: Poor Medications: Continuous Medications No continuous medications are active Scheduled Medications 1. busPIRone: 15 mg Oral Every 8 Hours 2. Folic Acid: 1 mg Oral Daily 3. Gabapentin: 800 mg Oral 3 Times a Day 4. Multivitamin with Minerals: 1 tablet(s) Oral Daily 5. Pantoprazole: 40 mg Oral Daily 6. Thiamine IV Piggy Back: 500 mg IntraVenous Piggyback 3 Times a Day 7. Ziprasidone: 40 mg Oral 2 Times a Day PRN Medications 1. Acetaminophen: 650 mg Oral Every 4 Hours 2. LORazepam: 2 mg Oral Every 2 Hours 3. Melatonin: 3 mg Oral At Bedtime Recent Lab Results: Results: I have reviewed these laboratory results: Complete Blood Count Trending View [id number] 06:50:00 23-Sep-2017 07:50:00 White Blood Cell Count6.0 5.8 Nucleated Erythrocyte Count0.0 0.0 Red Blood Cell Count4.33 L 4.12 L HGB13.9 13.1 L HCT42.5 39.3 L MCV98 95 MCHC32.7 33.3 SIY445 206 RDW-CV13.5 14.2 Renal Function Panel Trending View [id number] 06:50:00 23-Sep-2017 07:50:00 Glucose, Serum72 L 63 L NA140 140 K3.9 3.7 CL103 102 Bicarbonate, Serum26 28 Anion Gap, Serum15 14 BUN15 15 CREAT0.59 0.49 L GFR-Non >60 >60 GFR->60 >60 Calcium, Serum9.2 9.1 Phosphorus, Serum3.9 2.9 ALB3.6 3.7 Magnesium, Serum 24-Sep-2017 06:50:00 ResultValue Magnesium, Serum 2.02 Troponin I, Serum Trending View [id number] 06:50:00 23-Sep-2017 04:46:00 22-Sep-2017 20:52:00 Troponin I, Serum<0.02 <0.02 <0.02 Thyroid Stimulating Hormone, Serum 24-Sep-2017 06:50:00 ResultValue Thyroid Stimulating Hormone, Serum 2.45 Vitamin D (25-Hydroxy), Level 24-Sep-2017 06:50:00 ResultValue Vitamin D (25-Hydroxy), Level 15 A Glucose_POCT 23-Sep-2017 10:58:00 ResultValue Glucose-POCT 96 Complete Blood Count + Differential 22-Sep-2017 20:52:00 ResultValue White Blood Cell Count 6.7 Nucleated Erythrocyte Count 0.0 Red Blood Cell Count 4.31 L HGB 13.7 HCT 39.3 L MCV 91 MCHC 34.9 PLT 242 RDW-CV 14.1 Neutrophil % 62.2 Immature Granulocytes % 0.3 Lymphocyte % 28.6 Monocyte % 7.0 Eosinophil % 0.4 Basophil % 1.5 Neutrophil Count 4.19 Lymphocyte Count 1.93 Monocyte Count 0.47 Eosinophil Count 0.03 Basophil Count 0.10 Comprehensive Metabolic Panel 22-Sep-2017 20:52:00 ResultValue Glucose, Serum 93 NA 141 K 3.5 CL 102 Bicarbonate, Serum 26 Anion Gap, Serum 17 BUN 11 CREAT 0.54 GFR-Non >60 GFR- >60 Calcium, Serum 8.9 ALB 4.1 ALKP 120 T Pro 6.7 T Bili 0.7 Alanine Aminotransferase, Serum 22 Aspartate Transaminase, Serum 36 Ethanol Level 22-Sep-2017 20:52:00 ResultValue Ethanol Level 228 A Lipase, Serum 22-Sep-2017 20:52:00 ResultValue Lipase, Serum 51 Creatine Kinase, Level 22-Sep-2017 20:52:00 ResultValue Creatine Kinase, Level 639 H Assessment and Plan: Assessment: Mr. Doll is a 37 y/o male with a PMHx of: Schizoaffective Disorder, Anxiety Disorder, Polysubstance Abuse, and Alcohol Abuse Disorder, who presents for alcohol detoxification. Psychiatry was consulted on 09/23, to perform chem dep assessment. As of 09/24, the pt was cooperative and more alert today. Pt is still diaphoretic but no tremors noted during assessment. Pt has a significant history of alcohol withdrawal with past hx of w/d seizures and DTs. Pt reports heavy alcohol consumption over the last two weeks, including ingestion of mouthwash. Pt reports interest in becoming clean/sober, and was provided with a list of chem dep resources. Pt denies SI/HI/AVH but endorses occasional +TH. IMPRESSION: Alcohol Use Disorder, Severe, In a Controlled Environment Alcohol Withdrawal, with hx of DTs/Seizures Stimulant Use Disorder (Cocaine), Moderate, In a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 Screen: ? Do you have a cough?no Smoking/Social History (Required age 13 or older): Smoking Status: current every day smoker Alcohol Use: daily Drug Use: daily Admission Risk Screen: ? Significant IndicatorsComplete CAGE: CAGE: Is this an injured patient at a Trauma Center ([facility]): no Electronic Signatures: Mirella Guzman (GARY PRN) (Signed 20-Sep-2017 13:00) Authored: Preferred Language, Advanced Directives, Family Violence Adult, Suicide / Depression, Learning Assessment (Patient), Learning Assessment (Other Learner), Fall Risk Adult, Pressure Injury, Respiratory / Cough /TB, Smoking/Social History (Required age 13 or older), CAGE Last Updated: 20-Sep-2017 13:00 by Mirella Guzman (GARY PRN) References: 1. Data Referenced From Triage - ED 09/20/2017 10:26 AM ALCOHOL Collected: 09/20/2017 Status: F Source: [facility] 10:32 [facility] REPOSITORY TYPE CODE TESTS RESULT OUT OF RANGE REFERENCE UNITS LAB ALC(LOINC) mg/dL Abnormal ALCOHOL 339 Result Comment: FOR MEDICAL USE ONLY. . REF VALUES <10 Performed By: #### ALC #### [facility] [address] [place] [address] BASIC METABOLIC PANEL Collected: 09/20/2017 Status: F Source: DRIVER 10:32 AM HOSPITALS REPOSITORY TYPE CODE TESTS RESULT OUT OF REFERENCE UNITS RANGE LAB GLU(LOINC) 74 - 99 mg/dL GLUCOSE High 118 LAB SOD(LOINC) 136 - 145 mmol/L SODIUM 140 LAB K(LOINC) 3.5 - 5.3 mmol/L Low POTASSIUM 3.2 LAB CHLOR(LOIN 98 - 107 mmol/L C) CHLORIDE 103 LAB BIC(LOINC) 21 - 32 mmol/L BICARBONATE 24 LAB ANGAP(LOIN 10 - 20 mmol/L C) ANION GAP 16 LAB UREA(LOINC 6 - 23 mg/dL ) UREA NITROGEN 12 LAB CREA(LOINC 0.50 - 1.30 mg/dL ) CREATININE 0.62 LAB GFRFN(LOIN >60 mL/min/1.7 C) 3m2 GFR-NON AM. >60 LAB GFRAA(LOIN >60 mL/min/1.7 C) 3m2 GFR- AM. >60 Result Comment: CALCULATIONS OF ESTIMATED GFR ARE PERFORMED USING THE MDRD STUDY EQUATION FOR THE IDMS-TRACEABLE CREATININE METHODS. CLIN CHEM 2007;53:766-72 LAB CA(LOINC) 8.6 - 10.6 mg/dL CALCIUM 8.9 Performed By: #### BMP #### [facility] [address] [place] [address] LIPASE Collected: 09/20/2017 Status: F Source: DRIVER 10:32 AM HOSPITALS REPOSITORY TYPE CODE TESTS RESULT OUT OF REFERENCE UNITS RANGE LAB LIPAS(LOINC 9 - 82 U/L ) LIPASE 31 Result Comment: Venipuncture immediately after or during the administration of Metamizole may lead to falsely low results. Testing should be performed immediately prior to Metamizole dosing. Performed By: #### LIPAS #### [facility] [address] [place] [address] CBC AND DIFFERENTIAL Collected: 09/20/2017 Status: F Source: DRIVER 10:32 HOSPITALS REPOSITORY TYPE CODE TESTS RESULT OUT OF REFERENCE UNITS RANGE LAB WBCR(LOINC 4.4 - 11.3 x10E9/L ) WBC 6.0 LAB NRBC(LOINC 0.0-0.0 /100 WBC ) NUCLEATED RBC 0.0 LAB RBCCT(LOIN 4.50 - 5.90 x10E12/L C) Low RBC 4.45 LAB HGB(LOINC) 13.5 - 17.5 g/dL HGB 13.9 LAB HCT(LOINC) 41.0 - 52.0 % HCT 41.0 LAB MCV(LOINC) 80 - 100 fL MCV 92 LAB MCHC2(LOIN 32.0 - 36.0 g/dL C) MCHC 33.9 LAB PLTCT(LOIN 150 - 450 x10E9/L C) PLT 298 LAB RDWCV(LOIN 11.5 - 14.5 % C) RDW-CV 13.6 LAB NEUT(LOINC 40.0 - 80.0 % ) % NEUTROPHIL 53.9 LAB IG(LOINC) 0.0 - 0.9 % % AUTOMATED 0.3 IMMATURE GRAN Result Comment: Percent differential counts (%) should be interpreted in the context of the absolute cell counts (cells/L). LAB LYMPH(LOINC) 13.0 - 44.0 % % LYMPHOCYTE 35.5 LAB MONO(LOINC) 2.0 - 10.0 % % MONOCYTE 6.9 LAB EOS(LOINC) 0.0 - 6.0 % % EOSINOPHIL 1.7 LAB BASO(LOINC) 0.0 - 2.0 % % BASOPHIL 1.7 LAB #NEUT(LOINC) 1.20 - 7.70 x10E9/L NEUTROPHIL 3.22 LAB #LYMP(LOINC) 1.20 - 4.80 x10E9/L LYMPHOCYTE 2.12 LAB #MONO(LOINC) 0.10 - 1.00 x10E9/L MONOCYTE 0.41 LAB #EOS(LOINC) 0.00 - 0.70 x10E9/L EOSINOPHIL 0.10 LAB #BASO(LOINC) 0.00 - 0.10 x10E9/L BASOPHIL 0.10 Performed By: #### CBCDF #### [facility] [address] [place] [address] TRIAGE - ED Observed: 09/20/2017 Status: UNK Source: DRIVER 10:26 AM HOSPITALS REPOSITORY Pain: Pain Rating (0-10): Rest0 Pain Rating (0-10): Activity0 Chart Review: CHIEF COMPLAINT ZAINA DOLL is a Male patient with a chief complaint of suspected alcohol intoxication. Onset of the Complaint: 20-Sep-2017 Other Complaints: pt c/o needing detox. he drinks daily and has been drinking mouthwash Triage Date/Time: 20-Sep-2017 10:26 Pain Rating (0-10): Rest: 0 Pain Rating (0-10): Activity: 0 Vital Signs: Temperature: 98.2F ( 36.8C) taken oral Blood Pressure: 135/87 Mean: Heart Rate: 101 Respiratory Rate: 18 Pulse Oximetry: 95% on room air, no respiratory support. Height: 6 feet 3.00 inches. 190.5 CM Weight: 200.0 pounds. Calculated 90.7 kg. (stated) Calculated BMI (kg/m2): 24.992 Calculated BSA (m2) 2.19 Cough lasting greater than 3 weeks: no Patient immunocompromised related to: N/A Travel outside of [facility]: no Allergies: yes Patient has suicidal thoughts: no Patient has homicidal thoughts: no GEOVANNA: 3 Symptoms Are POSITIVE For: headache. PAIN Pain Scale Used: ALLI Past Medical History: ? Past Medical History Reviewedyes Electronic Signatures: Mirella Guzman (GARY CHRISTINE) (Signed 20-Sep-2017 10:32) Authored: Triage, Past Medical History Last Updated: 20-Sep-2017 10:32 by Mirella Guzman (GARY CHRISTINE) PROVIDER NOTE - ED Observed: 09/20/2017 Status: COMPLETED Source: UNIVERS[facility] V2 10:06 AM HOSPITALS REPOSITORY Provider Note - ED v2: Chart Review: ED NOTES ED NOTES: This is a 37-year-old male with a past medical history of alcohol abuse and schizoaffective disorder. He presents today with concerns for alcohol withdrawal. Patient states his last drink was less than an hour before presenting here. He states that he also had a large bottle of mouthwash around 3 AM this morning. He states that for several days he has been having symptoms of tremulousness, headache, stomach upset, nausea, vomiting, and hallucinations in which he says he is seeing elephants and giraffes. The symptoms have been worsening in intensity and are somewhat alleviated by drinking. Of note the patient presented with similar symptoms earlier this morning and left AMA. The patient has had no fevers at home, he has had no seizures or neurological symptoms. The patient is asking to be set up with detox. HISTORY OF PRESENTING ILLNESS ZAINA was seen by me at 20-Sep-2017 09:53. Triage Information: Most recent Vital Sign Value Date Temp (F): 98.2 09-20-2017 10:26 Temp (C): 36.8 09-20-2017 10:26 Heart Rate (beats/min): 101 09-20-2017 10:26 Respirations (breaths/min): 18 09-20-2017 10:26 SpO2 (%): 95 09-20-2017 10:26 BP Systolic (mm Hg): 135 09-20-2017 10:26 BP Diastolic (mm Hg): 87 09-20-2017 10:26 PAST MEDICAL HISTORY ATTESTATION: I have reviewed and confirmed nurse's/medic's notes for patient's medications, allergies, medical history, and surgical history ALLERGIES/INTOLERANCES: Allergy Allergen: morphine Type: Drug Reaction: Hives/Urticaria Allergen: Horse Type: Environment Reaction: Swelling/Edema Anaphylaxis Facial Swelling Allergen: opiates Type: Drug Category Reaction: Unknown Allergen: narcotic analgesics Type: Drug Category Reaction: Unknown HEALTH HISTORY: Medical History Name:Schizoaffective disorder Code:F25.9 Name:Alcohol addiction Code:F10.20 Name:Overdose of antipsychotic Code:T43.501A Name:Overdose of antidepressant Code:T43.201A OUTPATIENT MEDICATIONS: Home Medications Review Status for Reconciliation: N/A Med Status: Incomplete Medication History Drug Name: Multiple Vitamins with Minerals oral tablet Instructions: 1 tab(s) orally once a day Drug Name: gabapentin 400 mg oral capsule Instructions: 2 cap(s) orally 3 times a day Drug Name: busPIRone 15 mg oral tablet Instructions: 1 tab(s) orally every 8 hours Drug Name: pantoprazole 40 mg oral delayed release tablet Instructions: 1 tab(s) orally 2 times a day Drug Name: Geodon 40 mg oral capsule Instructions: 1 cap(s) orally 2 times a day SIGNIFICANT EVENTS: No documented data. REVIEW OF SYSTEMS CONSTITUTIONAL: POSITIVE for: diaphoresis and malaise Negative for: chills and fever EYES: Negative for: vision changes ENMT Throat/Neck: Negative for: throat pain and neck pain CARDIOVASCULAR: POSITIVE for: chest pain Negative for: palpitations RESPIRATORY: Negative for: dyspnea GASTROINTESTINAL: POSITIVE for: abdominal pain, nausea and vomiting; GENITOURINARY: Negative for: dysuria and hematuria; MUSCULOSKELETAL: Negative for: back pain and joint pain INTEGUMENTARY: POSITIVE for: itching; NEUROLOGICAL: Negative for: loss of function; sensory deficits PSYCHIATRIC: POSITIVE for: anxiety and hallucinations PHYSICAL EXAM CONSTITUTIONAL: Appears anxious; no apparent distress. HENMT: atraumatic head and face; no otorrhea or rhinorrhea EYES: clear bilaterally; tracking; no discharge; extraocular motions intact CARDIOVASCULAR: normal rate; regular rhythm. Positive S1, S2. No murmurs, rubs or gallops. RESPIRATORY: breath sounds clear and equal bilaterally. Normal respiratory effort. GASTROINTESTINAL: abdomen soft, non-distended, no rebound, no guarding. MUSCULOSKELETAL: extremities without deformity or injury; no obvious joint swelling or redness NEUROLOGICAL: alert and oriented; no facial droop; grossly intact strength and sensation in all extremities SKIN: warm; moderate diaphoresis; no significant lesions or rashes noted PSYCHIATRIC: Anxious mood and affect; normal speech and thought content RESULTS/VITAL SIGNS RESULTS: Recent Lab Results: I have reviewed these laboratory results: Complete Blood Count + Differential 20-Sep-2017 10:32:00 ResultValue White Blood Cell Count 6.0 Nucleated Erythrocyte Count 0.0 Red Blood Cell Count 4.45 L HGB 13.9 HCT 41.0 MCV 92 MCHC 33.9 PLT 298 RDW-CV 13.6 Neutrophil % 53.9 Immature Granulocytes % 0.3 Lymphocyte % 35.5 Monocyte % 6.9 Eosinophil % 1.7 Basophil % 1.7 Neutrophil Count 3.22 Lymphocyte Count 2.12 Monocyte Count 0.41 Eosinophil Count 0.10 Basophil Count 0.10 Basic Metabolic Panel 20-Sep-2017 10:32:00 ResultValue Glucose, Serum 118 H NA 140 K 3.2 L CL 103 Bicarbonate, Serum 24 Anion Gap, Serum 16 BUN 12 CREAT 0.62 GFR-Non >60 GFR- >60 Calcium, Serum 8.9 Lipase, Serum 20-Sep-2017 10:32:00 ResultValue Lipase, Serum 31 Ethanol Level 20-Sep-2017 10:32:00 ResultValue Ethanol Level 339 A EKG INTERPRETATION: Comments: ECG interpreted by myself and attending physician: normal sinus rhythm, normal rate, normal axes, normal QRS, normal FL interval, normal QTc, no flipped T waves, no abnormal Q waves, no ST segment changes MEDICAL DECISION MAKING/ED COURSE MDM/ED COURSE: Impression: Concern for alcohol withdrawal, however the patient's last drink was less than an hour before presentation. The patient is endorsing subjective findings of alcohol withdrawal, however he appears well in the emergency department and does not have significant vital sign changes. The patient has multiple complaints and has presented multiple times with similar symptoms in the past. Performed an EKG because of this report chest pain although I have low suspicion for serious pathology such as ACS or PE. Plan: Basic labs including alcohol level. IV fluids and nausea control with Compazine. EKG for report of chest pain. ED Course: Patient was monitored in the emergency department in stable condition. The patient received Compazine with some nausea relief and IV fluids. Labs were unremarkable except for an ethanol level of 339. ECG unremarkable. Given the patient's relatively benign appearance and his elevated alcohol level I believe he is actively drinking and is unlikely to be in acute withdrawal. D/w social work and unable to be accepted to inpatient rehabilitation at this time given his ongoing drinking. He was given a single dose of oral lorazepam with improvement in his mild tachycardia. The patient angrily removed his IV and monitor electrodes in the room and began to leave before discharge paperwork has been signed. He was told to return to the emergency Department independently symptoms get worse. CLINICAL IMPRESSION Diagnosis/Annotation: ED Dx Name:Alcohol abuse Code:F10.10 Name:Nausea Code:R11.0 Name:Abdominal pain Code:R10.9 Dispostion: discharged ATTESTATION Attestation: I saw and evaluated the patient. I personally obtained the goodwin and critical portions of the history and physical exam or was physically present for goodwin and critical portions performed by the resident/fellow. I reviewed the resident/fellow?s documentation and discussed the patient with the resident/fellow. I agree with the resident/fellow?s medical decision making as documented in the resident/fellow?s note with the exception/addition of the following Comments/Additional Findings: as above, given his alcohol level and symptoms he is most likely intoxicated and not in withdrawal. further, he tells me that he will continue to drink alcohol. Plan was to discuss his disposition, but per resident physician patient left prior to treatment complete. CRITICAL CARE TIME Is this a critically ill patient?: no Electronic Signatures: Mik Strong (Resident)) (Signed 20-Sep-2017 14:15) Authored: Provider Note - ED v2 Chary Timmons) (Signed 23-Sep-2017 10:42) Authored: Provider Note - ED v2 Co-Signer: Provider Note - ED v2 Last Updated: 23-Sep-2017 10:42 by Chary Timmons () PROVIDER NOTE - ED Observed: 09/20/2017 Status: COMPLETED Source: [place] [id number] 1:38 AM HOSPITALS REPOSITORY Provider Note - ED v2: Chart Review: ED NOTES ED NOTES: HISTORY OF PRESENT ILLNESS: This is a 37-year-old male with past medical history of etoh abuse, chronic pain who presents with concern of alcohol withdrawal. Patient states he has a mild headache and sweating has formication and visual hallucinations however he cannot provide any details as to what his hallucinations are. He denies nausea or vomiting denies any fevers. His last drink was 6 hours prior. He states that this does happen to him frequently. He states he does not want to be here but he was convinced by his girlfriend and mother to come in. He denies suicidal ideation or homicidal ideation ROS: A complete review of systems was performed and is otherwise negative except as noted in the HPI or additionally: PMH - Reviewed per records and any additional history is documented below: ?. History of present illness Family Hx - Reviewed per records and any additional history is documented below: ?Noncontributory Social History -All call abuse, denies drug abuse Allergies -Per Nursing Records, Reviewed PHYSICAL EXAM: Vital signs reviewed in nursing triage note, EMR flowsheets, and at patient's bedside Gen: nad, non-diaphoretic Neuro: Alert and Oriented, no focal deficits Head: Normocephalic Eye: EOMI, PERRL, normal conjuctiva ENT: Mucous membranes moist and pink, no pharyngeal erythema CV: RRR, no m/r/g Resp: Respirations non-labored, lungs clear to auscultation bilateral no w/r/r GI: Soft, non distended, non tender, no guarding, no rebound EXT: No edema, warm and well perfused SKIN: no rashes, lesions Psych: Cooperative, somewhat anxious PROCEDURES: None MEDICAL DECISION MAKING Labs: RFP Impression/Plan: 37-year-old male presents with symptoms concerning for all call withdrawal. Patient was given 1 mg of Ativan as well as Mohr catheter in and thiamine. Patient was mildly tachycardic. CBC, urinalysis ordered however prior to obtaining lab values patient stated he would like to go home. Patient denied any suicidal or homicidal ideation. Patient seen and examined again and is currently electing to sign out AGAINST MEDICAL ADVICE. He is currently alert and oriented ?3, of sound judgment and decision-making capacity. Extensive conversation regarding the risks of leaving before completion of testing and treatment were explained which included multiple patients who had gone home only to in their sleep. Also discussed the concerns including seizure, permanent disability, or from incomplete workup and treatment. Patient is able to verbally repeat these and explained their meaning in front of other medical staff. Despite further options including admission to the hospital they are electing to leave AGAINST MEDICAL ADVICE. Dx: Etoh abuse, withdrawal Patient was counseled about the diagnosis, labs, radiology results, and plan. Disposition: AMA - home Pt seen and dw attending on shift Maximo Alvarado MD Emergency Medicine Resident HISTORY OF PRESENTING ILLNESS aggressive behavior(1) ZAINA was seen by me at 19-Sep-2017 21:22. Other complaints include: Patient arrives today reporting alcohol withdrawl patient exhibiting aggressive behavior, swearing and raising his hand threatening to hit significant other. Denies HI/SI(1). Triage Information: Most recent Vital Sign Value Date Temp (F): 97.8 09-19-2017 20:54 Temp (C): 36.6 09-19-2017 20:54 Heart Rate (beats/min): 98 09-19-2017 20:54 Respirations (breaths/min): 18 09-19-2017 20:54 SpO2 (%): 99 09-19-2017 20:54 BP Systolic (mm Hg): 131 09-19-2017 20:54 BP Diastolic (mm Hg): 90 09-19-2017 20:54 PAST MEDICAL HISTORY ATTESTATION: I have reviewed and confirmed nurse's/medic's notes for patient's medications, allergies, medical history, and surgical history ALLERGIES/INTOLERANCES: Allergy Allergen: morphine Type: Drug Reaction: Hives/Urticaria Allergen: Horse Type: Environment Reaction: Swelling/Edema Anaphylaxis Facial Swelling Allergen: opiates Type: Drug Category Reaction: Unknown Allergen: narcotic analgesics Type: Drug Category Reaction: Unknown HEALTH HISTORY: Medical History Name:Schizoaffective disorder Code:F25.9 Name:Alcohol addiction Code:F10.20 Name:Overdose of antipsychotic Code:T43.501A Name:Overdose of antidepressant Code:T43.201A OUTPATIENT MEDICATIONS: Home Medications Review Status for Reconciliation: N/A Med Status: Incomplete Medication History Drug Name: Multiple Vitamins with Minerals oral tablet Instructions: 1 tab(s) orally once a day Drug Name: gabapentin 400 mg oral capsule Instructions: 2 cap(s) orally 3 times a day Drug Name: busPIRone 15 mg oral tablet Instructions: 1 tab(s) orally every 8 hours Drug Name: pantoprazole 40 mg oral delayed release tablet Instructions: 1 tab(s) orally 2 times a day Drug Name: acamprosate 333 mg oral delayed release tablet Instructions: 1 tab(s) orally 3 times a day Drug Name: Geodon 40 mg oral capsule Instructions: 1 cap(s) orally 2 times a day SIGNIFICANT EVENTS: No documented data. CLINICAL IMPRESSION Dispostion: AMA (saw a physician/midlevel provider and clinician was able to provide reasons for staying for treatment & form is signed) Condition on Disposition: stable ATTESTATION Attestation: I saw and evaluated the patient. I personally obtained the goodwin and critical portions of the history and physical exam or was physically present for goodwin and critical portions performed by the resident/fellow. I reviewed the resident/fellow?s documentation and discussed the patient with the resident/fellow. I agree with the resident/fellow?s medical decision making as documented in the resident?s note CRITICAL CARE TIME Is this a critically ill patient?: no Electronic Signatures: Ken Alvarado (Resident)) (Signed 20-Sep-2017 01:39) Authored: Provider Note - ED v2 Shanthi Hart) (Signed 21-Sep-2017 12:24) Authored: Provider Note - ED v2 Co-Signer: Provider Note - ED v2 Last Updated: 21-Sep-2017 12:24 by Shanthi Hart) References: 1. Data Referenced From Triage - ED 09/19/2017 8:54 PM CBC AND DIFFERENTIAL Collected: 09/19/2017 Status: CANCELLED Source: DRIVER 11:04 PM HOSPITALS REPOSITORY Order Comment: TEST CBC AND DIFFERENTIAL WAS CANCELLED, 09/19/2017 23:40 SPECIMEN CLOTTED.PLEASE RESUBMIT. TYPE CODE TESTS RESULT OUT OF REFERENCE UNITS RANGE LAB WBCR(LOINC ) WBC Canceled LAB NRBC(LOINC ) NUCLEATED RBC Canceled LAB RBCCT(LOIN C) RBC Canceled LAB HGB(LOINC) HGB Canceled LAB HCT(LOINC) HCT Canceled LAB MCV(LOINC) MCV Canceled LAB MCHC2(LOIN C) MCHC Canceled LAB PLTCT(LOIN C) PLT Canceled LAB RDWCV(LOIN C) RDW-CV Canceled LAB NEUT(LOINC ) % NEUTROPHIL Canceled LAB IG(LOINC) % AUTOMATED Canceled IMMATURE GRAN Result Comment: Percent differential counts (%) should be interpreted in the context of the absolute cell counts (cells/L). LAB LYMPH(LOINC) % LYMPHOCYTE Canceled LAB MONO(LOINC) % MONOCYTE Canceled LAB EOS(LOINC) % EOSINOPHIL Canceled LAB BASO(LOINC) % BASOPHIL Canceled LAB #NEUT(LOINC) NEUTROPHIL Canceled LAB #LYMP(LOINC) LYMPHOCYTE Canceled LAB #MONO(LOINC) MONOCYTE Canceled LAB #EOS(LOINC) EOSINOPHIL Canceled LAB #BASO(LOINC) BASOPHIL Canceled LAB MDIF(LOINC) DIFFERENTIAL Canceled Performed By: #### CBCDF #### [facility] [address] [place] [address] RENAL FUNCTION PANEL Collected: 09/19/2017 Status: F Source: DRIVER 11:04 PM HOSPITALS REPOSITORY TYPE CODE TESTS RESULT OUT OF REFERENCE UNITS RANGE LAB GLU(LOINC) 74 - 99 mg/dL GLUCOSE High 105 LAB SOD(LOINC) 136 - 145 mmol/L SODIUM 144 LAB K(LOINC) 3.5 - 5.3 mmol/L Low POTASSIUM 3.3 LAB CHLOR(LOIN 98 - 107 mmol/L C) CHLORIDE 105 LAB BIC(LOINC) 21 - 32 mmol/L BICARBONATE 27 LAB ANGAP(LOIN 10 - 20 mmol/L C) ANION GAP 15 LAB UREA(LOINC 6 - 23 mg/dL ) UREA NITROGEN 12 LAB CREA(LOINC 0.50 - 1.30 mg/dL ) CREATININE 0.67 LAB GFRFN(LOIN >60 mL/min/1.7 C) 3m2 GFR-NON AM. >60 LAB GFRAA(LOIN >60 mL/min/1.7 C) 3m2 GFR- AM. >60 Result Comment: CALCULATIONS OF ESTIMATED GFR ARE PERFORMED USING THE MDRD STUDY EQUATION FOR THE IDMS-TRACEABLE CREATININE METHODS. CLIN CHEM 2007;53:766-72 LAB CA(LOINC) 8.6 - 10.6 mg/dL CALCIUM 9.2 LAB PHOS(LOINC) 2.5 - 4.9 mg/dL PHOSPHORUS 3.0 Result Comment: The performance characteristics of phosphorus testing in heparinized plasma have been validated by the individual laboratory site where testing is performed. Testing on heparinized plasma is not approved by the FDA; however, such approval is not necessary. LAB ALB(LOINC) 3.4 - 5.0 g/dL ALBUMIN 4.3 Performed By: #### RENAL #### [facility] [address] [place] [address] TRIAGE - ED Observed: 09/19/2017 Status: UNK Source: DRIVER 8:54 PM HOSPITALS REPOSITORY Chart Review: CHIEF COMPLAINT ZAINA DOLL is a Male patient with a chief complaint of aggressive behavior (ETOH). Other Complaints: Patient arrives today reporting alcohol withdrawl patient exhibiting aggressive behavior, swearing and raising his hand threatening to hit significant other. Denies HI/SI Triage Date/Time: 19-Sep-2017 20:54 Vital Signs: Temperature: 97.8F ( 36.6C) Blood Pressure: 131/90 Mean: Heart Rate: 98 Respiratory Rate: 18 Pulse Oximetry: 99% Height: 6 feet 3.00 inches. 190.5 CM Weight: 200.0 pounds. Calculated 90.7 kg. (stated) Calculated BMI (kg/m2): 24.992 Calculated BSA (m2) 2.19 Cough lasting greater than 3 weeks: no Travel outside of [place]: no Allergies: yes Patient has suicidal thoughts: no Patient has homicidal thoughts: no GEOVANNA: 3 PAIN Pain Scale Used: ALLI Past Medical History: ? Past Medical History Reviewedyes ? Seizure Disorder: Past Medical History, from alcohol withdraw, Active ? EtOH abuse: Past Medical History, Active ? Hypertension (HTN): Past Medical History, Active ? GERD: Past Medical History, Active ? schizoaffective disorder: Past Medical History, Active Electronic Signatures: Joelle Hickman (RN) (Signed 19-Sep-2017 20:57) Authored: Triage, Past Medical History Last Updated: 19-Sep-2017 20:57 by Joelle Hickman (RN) DISCHARGE SUMMARY Observed: 09/05/2017 Status: COMPLETED Source: DRIVER 2:05 PM HOSPITALS REPOSITORY Send Summary: Discharge Summary Providers: Provider RoleProvider Name ? Radhames Bush ? Humberto Blackwell ? La Schmitt ? Jose R Dowling Note Recipients: Jose R Ramos MD - [id number] [] [place] MD White, Howard, MD Zivic, Miodrag Vitomir, MD Discharge: Summary: Admission Date: .01-Sep-2017 15:36:00 Discharge Date: 05-Sep-2017 Attending Physician at Discharge: Humberto Metz Admission Reason: Overdose(1) Final Discharge Diagnoses: Overdose Procedures: None Condition at Discharge: Satisfactory Disposition at Discharge: .Home Vital Signs: T PRBPSpO2 [id number]% Date/Time09/05 8: 8: 8: 8: 8:01 Range(36.6C - 37.1C ) (77 - 85 ) (16 - 18 ) (113 - 136 )/ (70 - 87 ) (95% - 98% ) Highest temp of 37.1 C was recorded at 09/04 15:45 Physical Exam: Constitutional: Well developed, awake/alert/oriented x3, no distress, alert and cooperative Eyes: PERRL, EOMI, clear sclera ENMT: mucous membranes moist, no apparent injury, no lesions seen Head/Neck: Neck supple, no apparent injury, thyroid without mass or tenderness, trachea midline Respiratory/Thorax: Patent airways, CTAB, normal breath sounds with good chest expansion, thorax symmetric Cardiovascular: Regular, rate and rhythm, no murmurs, 2+ equal pulses of the extremities, normal S 1and S 2 Gastrointestinal: Nondistended, soft, non-tender, no rebound tenderness or guarding, no masses palpable, no organomegaly, +BS Musculoskeletal: ROM intact, no joint swelling, normal strength Extremities: normal extremities, no cyanosis edema, contusions or wounds, no clubbing Neurological: alert and oriented x3, intact senses, motor, response and reflexes, normal strength Lymphatic: No significant lymphadenopathy Psychological: Appropriate mood and behavior Skin: Warm and dry, no lesions, no rashes Hospital Course: Pt was admitted to [facility] for evaluation and treatment of overdose. At discharge he will resume Geodon and BuSpar and gabapentin as prescribed by his outpatient doctor and return to his outpatient clinic as scheduled. Pt's Wellbutrin has been discontinued. He will be discharged home on Campral 333 mg 3 times a day. Pt will need 90-120 days residential substance and psychiatric care. Medical History: Overdose of antidepressant: Overdose of antipsychotic: Alcohol addiction: Schizoaffective disorder: Discharge Information: and Continuing Care: Discharge Instructions: Activity: activity as tolerated. Nutrition/Diet: resume normal diet Additional Orders: Additional Instructions: You were admitted to [facility] for evaluation and treatment of overdose. At discharge you will resume Geodon and BuSpar and gabapentin as prescribed by your outpatient doctor and return to your outpatient clinic as scheduled. Your Wellbutrin has been discontinued. You will be discharged home on Campral 333 mg 3 times a day. You will need 90-120 days residential substance and psychiatric care. Follow Up Appointments: Follow-Up Appointment 01: Physician/Dept/Service: Psychiatrist Reason for Referral: Hospital follow up Call to Schedule in: 1 week Follow-Up Appointment 02: Physician/Dept/Service: Primary Care Provider Reason for Referral: Hospital follow up Call to Schedule in: 1 week Discharge Medications: Home Medication Multiple Vitamins with Minerals oral tablet - 1 tab(s) orally once a day gabapentin 400 mg oral capsule - 2 cap(s) orally 3 times a day busPIRone 15 mg oral tablet - 1 tab(s) orally every 8 hours pantoprazole 40 mg oral delayed release tablet - 1 tab(s) orally 2 times a day acamprosate 333 mg oral delayed release tablet - 1 tab(s) orally 3 times a day Geodon 40 mg oral capsule - 1 cap(s) orally 2 times a day PRN Medication Lab Results - Pending: None Radiology Results - Pending: None Electronic Signatures: Daniela Treviño (CLINICAL LIAISON-SEED PRODUCTION FIELD SUPERVISOR) (Signed 05-Sep-2017 14:07) Authored: Send Summary, Summary Content, Medical History, Ongoing Care, Signature/Cosignature/Attestation Humberto Metz) (Signed 06-Sep-2017 15:05) Co-Signer: Send Summary, Summary Content, Medical History, Ongoing Care, Signature/Cosignature/Attestation Last Updated: 06-Sep-2017 15:05 by Humberto Metz) HISTORY AND PHYSICAL Observed: 09/05/2017 Status: COMPLETED Source: DRIVER 1:58 PM HOSPITALS REPOSITORY History of Present Illness: Admission Reason: Overdose HPI: Pt recently admitted to [facility] for evaluation and tx of overdose. Per pt, he has a long history of alcohol abuse and recently completed a detox program. Pt states that he did not want to start drinking again so he began smoking pot and taking a bunch of his Wellbutrin. Pt states that before he realized it he took an excessive amount of his Wellbutrin, but that it was not intentional. Pt was originally admitted to the ICU but has been cleared for DC by critical care team and psych. Pt states that he will look into rehab options as well as AA. Pt denies any issues at this time. Past Medical/Surgical History: Medical History: Overdose of antidepressant: Overdose of antipsychotic: Alcohol addiction: Schizoaffective disorder: Family History: Family History: reviewed and not pertinent to presenting problem Social History: Social History: Alcohol Usehistory of abuse Drug Usehistory of abuse Allergies: ? morphine: Hives/Urticaria ? Horse: Swelling/Edema, Anaphylaxis, Facial Swelling ? opiates: Unknown ? narcotic analgesics: Unknown Medications Prior to Admission: Home meds have been reviewed, but review is not yet complete Multiple Vitamins with Minerals oral tablet: 1 tab(s) orally once a day gabapentin 400 mg oral capsule: 2 cap(s) orally 3 times a day busPIRone 15 mg oral tablet: 1 tab(s) orally every 8 hours pantoprazole 40 mg oral delayed release tablet: 1 tab(s) orally 2 times a day Geodon 40 mg oral capsule: 1 cap(s) orally 2 times a day. Review of Systems: Constitutional: NEGATIVE: Fever, Chills, Anorexia, Weight Loss, Malaise Eyes: NEGATIVE: Blurry Vision, Drainage, Diploplia, Redness, Vision Loss/ Change ENMT: NEGATIVE: Nasal Discharge, Nasal Congestion, Ear Pain, Mouth Pain, Throat Pain Respiratory: NEGATIVE: Dry Cough, Productive Cough, Hemoptysis, Wheezing, Shortness of Breath Cardiac: NEGATIVE: Chest Pain, Dyspnea on Exertion, Orthopnea, Palpitations, Syncope Gastrointestinal: NEGATIVE: Nausea, Vomiting, Diarrhea, Constipation, Abdominal Pain Genitourinary: NEGATIVE: Discharge, Dysuria, Flank Pain, Frequency, Hematuria Musculoskeletal: NEGATIVE: Decreased ROM, Pain, Swelling, Stiffness, Weakness Neurological: NEGATIVE: Dizziness, Confusion, Headache, Seizures, Syncope Psychiatric: NEGATIVE: Mood Changes, Anxiety, Hallucinations, Sleep Changes, Suicidal Ideas Skin: NEGATIVE: Mass, Pain, Pruritus, Rash, Ulcer Endocrine: NEGATIVE: Heat Intolerance, Cold Intolerance, Sweat, Polyuria, Thirst Hematologic/Lymph: NEGATIVE: Anemia, Bruising, Easy Bleeding, Night Sweats, Petechiae Allergic/Immunologic: NEGATIVE: Anaphylaxis, Itchy/ Teary Eyes, Itching, Sneezing, Swelling All Other Systems: All other systems reviewed and are negative Objective: Objective Information: T PRBPSpO2 [id number]/7098% Date/Time09/05 8: 8: 8: 8: 8:01 Range(36.6C - 37.1C ) (77 - 85 ) (16 - 18 ) (113 - 136 )/ (70 - 87 ) (95% - 98% ) Highest temp of 37.1 C was recorded at 09/04 15:45 Pain at Rest reported at 09/04 21:00: 0 Physical Exam: Constitutional: Well developed, awake/alert/oriented x3, no distress, alert and cooperative Eyes: PERRL, EOMI, clear sclera ENMT: mucous membranes moist, no apparent injury, no lesions seen Head/Neck: Neck supple, no apparent injury, thyroid without mass or tenderness, trachea midline Respiratory/Thorax: Patent airways, CTAB, normal breath sounds with good chest expansion, thorax symmetric Cardiovascular: Regular, rate and rhythm, no murmurs, 2+ equal pulses of the extremities, normal S 1and S 2 Gastrointestinal: Nondistended, soft, non-tender, no rebound tenderness or guarding, no masses palpable, no organomegaly, +BS Musculoskeletal: ROM intact, no joint swelling, normal strength Extremities: normal extremities, no cyanosis edema, contusions or wounds, no clubbing Neurological: alert and oriented x3, intact senses, motor, response and reflexes, normal strength Lymphatic: No significant lymphadenopathy Psychological: Appropriate mood and behavior Skin: Warm and dry, no lesions, no rashes Medications: Medications: Continuous Medications No continuous medications are active Scheduled Medications 1. Acamprosate: 333 mg Oral 3 Times a Day 2. busPIRone: 15 mg Oral Every 8 Hours 3. Pantoprazole: 40 mg Oral 2 Times a Day 4. Thiamine: 100 mg Oral Daily 5. Vitamin B Complex with C: 1 tablet(s) Oral Daily 6. Ziprasidone: 40 mg Oral 2 Times a Day PRN Medications No PRN medications are active Recent Lab Results: Results: I have reviewed these laboratory results: {\rtf1\ansi\deff0\par\trowd\tzhwr8431\grrmx1133\b1 Complete Blood Count \intbl\cell 02-Sep-2017 05:05:00 \b0\intbl\cell\row\pard}{\rtf1\ansi\deff0\par\trowd\kvwyk0590\kpcnu8470 Result\intbl\cell Value \intbl\cell\row\trowd\xfudn7589\rcqio5779 White Blood Cell Count \intbl\cell 5.5 \intbl\cell\row\trowd\dcjxv8350\rblgl8449 Red Blood Cell Count \intbl\cell \i1 4.40\b1 L\b0\i0 \intbl\cell\row\trowd\dslak1689\vfowy2069 HGB \intbl\cell 13.8 \intbl\cell\row\trowd\bwkcu5177\zsxxb3621 HCT \intbl\cell 42.8 \intbl\cell\row\trowd\elsfp8022\bckoc0702 MCV \intbl\cell 97 \intbl\cell\row\trowd\aozdp0800\kjqrd3016 MCHC \intbl\cell 32.2 \intbl\cell\row\trowd\dlvsp7357\lctsj0133 PLT \intbl\cell 162 \intbl\cell\row\trowd\njtai9450\yqpiu0188 RDW-CV \intbl\cell 14.2 \intbl\cell\row\pard}{\rtf1\ansi\deff0\par\trowd\yicaz3361\ebajp8716\b1 Renal Function Panel \intbl\cell 02-Sep-2017 05:05:00 \b0\intbl\cell\row\pard}{\rtf1\ansi\deff0\par\trowd\bokyv5687\zurfi9334 Result\intbl\cell Value \intbl\cell\row\trowd\qcaex3232\qzgcc4671 Glucose, Serum \intbl\cell 82 \intbl\cell\row\trowd\sryvq2788\azqzl7815 NA \intbl\cell 140 \intbl\cell\row\trowd\ueiaz5409\oclgw9443 K \intbl\cell 3.6 \intbl\cell\row\trowd\decdp4109\udinf1219 CL \intbl\cell 104 \intbl\cell\row\trowd\rzsdq6907\bksfg9001 Bicarbonate, Serum \intbl\cell 29 \intbl\cell\row\trowd\tgqpt7981\yxoed6758 Anion Gap, Serum \intbl\cell 11 \intbl\cell\row\trowd\afpgs1740\untub4826 BUN \intbl\cell 11 \intbl\cell\row\trowd\kxlco8550\pfnbi3347 CREAT \intbl\cell 0.61 \intbl\cell\row\trowd\ndcwp0659\uajtm5412 GFR-Non \intbl\cell >60 \intbl\cell\row\trowd\inxhj4278\otihw0172 GFR- \intbl\cell >60 \intbl\cell\row\trowd\tievs8835\yiakg7132 Calcium, Serum \intbl\cell 8.6 \intbl\cell\row\trowd\xddal5320\omewi8448 Phosphorus, Serum \intbl\cell 4.0 \intbl\cell\row\trowd\wqdny8988\mrdmp4540 ALB \intbl\cell 3.5 \intbl\cell\row\pard}{\rtf1\ansi\deff0\par\trowd\wcvir1627\sbznt7393\b1 Magnesium, Serum \intbl\cell 02-Sep-2017 05:05:00 \b0\intbl\cell\row\pard}{\rtf1\ansi\deff0\par\trowd\obxdw6052\drmlw4333 Result\intbl\cell Value \intbl\cell\row\trowd\jnhtf7645\khrfo3180 Magnesium, Serum \intbl\cell 2.20 \intbl\cell\row\pard} Radiology Results: Results: Impression: 1. New widening of the superior mediastinum, which may be secondary to rotation. Lateral radiograph could be obtained for further evaluation. 2. No focal consolidation. Xray Chest 1 View [Sep 01 2017 9:19AM] Assessment and Plan: Problem List: Admitting Dx: Overdose: Additional Dx: Alcohol use disorder, moderate, dependence: Schizoaffective disorder: Alcohol use with intoxication: Medical History: Overdose of antidepressant: Overdose of antipsychotic: Alcohol addiction: Schizoaffective disorder: Assessment: Pt seen in collaboration with Dr. Metz. Discussed with nursing. Impression 1: Overdose/ Alcohol Abuse Plan for Impression 1: Pt was cleared for DC by psych and Wellbutrin will not be continued Encourage participation in detox programs and/or AA Signatures/Attestation/Certification: Attending Provider ? Inpatient Certification StatementN/A - observation patient/other outpatient visits Electronic Signatures: Daniela Treviño (CLINICAL LIAISON-SEED PRODUCTION FIELD SUPERVISOR) (Signed 05-Sep-2017 14:05) Authored: History of Present Illness, Comorbidities, Past Medical/Surgical History, Family History, Social History, Allergies, Medications Prior to Admission, Review of Systems, Objective, Assessment and Plan, Signatures/Attestation/Certification Humberto Metz) (Signed 06-Sep-2017 15:03) Authored: Signatures/Attestation/Certification Co-Signer: History of Present Illness, Comorbidities, Past Medical/Surgical History, Family History, Social History, Allergies, Medications Prior to Admission, Review of Systems, Objective, Assessment and Plan, Signatures/Attestation/Certification Last Updated: 06-Sep-2017 15:03 by Humberto Metz) DISCHARGE PROFILE2 Observed: 09/05/2017 Status: UNK Source: DRIVER 11:04 AM HOSPITALS REPOSITORY Discharge Orders: Anticipated Discharge Date: ? Anticipated Discharge [id number] Problem List: Admitting Dx: ? Overdose: Catalog Name: Poisoning by unspecified drugs, medicaments and biological substances, accidental (unintentional), initial encounter Additional Dx: ? Alcohol use disorder, moderate, dependence: Catalog Name: Alcohol dependence, uncomplicated ? Schizoaffective disorder: Catalog Name: Schizoaffective disorder, unspecified ? Alcohol use with intoxication: Catalog Name: Alcohol use, unspecified with intoxication, unspecified Medical History: ? Overdose of antidepressant: Catalog Name: Poisoning by unspecified antidepressants, accidental (unintentional), initial encounter ? Overdose of antipsychotic: Catalog Name: Poisoning by unspecified antipsychotics and neuroleptics, accidental (unintentional), initial encounter ? Alcohol addiction: Catalog Name: Alcohol dependence, uncomplicated ? Schizoaffective disorder: Catalog Name: Schizoaffective disorder, unspecified Prelim Disch Dx: ? Alcohol withdrawal: Catalog Name: Alcohol dependence with withdrawal, unspecified ? S/P alcohol detoxification: Catalog Name: Encounter for follow-up examination after completed treatment for conditions other than malignant neoplasm Significant Events: Seizure Disorder: Past Medical History, from alcohol withdraw EtOH abuse: Past Medical History Hypertension (HTN): Past Medical History GERD: Past Medical History schizoaffective disorder: Past Medical History Hospital Providers: Provider RoleProvider Name ? Humberto Blackwell ? La Schmitt ? Jose R Dowling DNAR: ? DNAR Statusnone Activity: activity as tolerated. Diet: ? Dietresume normal diet Additional Orders: ? Additional Instructions You were admitted to [facility] for evaluation and treatment of overdose. At discharge you will resume Geodon and BuSpar and gabapentin as prescribed by your outpatient doctor and return to your outpatient clinic as scheduled. Your Wellbutrin has been discontinued. You will be discharged home on Campral 333 mg 3 times a day. You will need 90-120 days residential substance and psychiatric care. Call Provider If (Homegoing Patients): Any new concerning symptoms. Hospital Course (Home Care/Gold Form): Hospital Course: ? Hospital Course: include significant abnormal lab values Pt was admitted to [facility] for evaluation and treatment of overdose. At discharge he will resume Geodon and BuSpar and gabapentin as prescribed by his outpatient doctor and return to his outpatient clinic as scheduled. Pt's Wellbutrin has been discontinued. He will be discharged home on Campral 333 mg 3 times a day. Pt will need 90-120 days residential substance and psychiatric care. Provider FINAL REVIEW of Orders: Final Review: ? Final Review of Medication Reconciliation and Orders Completedby CLINICAL LIAISON ? Reviewing ProviderPRANAV Vieyra at 05-Sep-2017 11:09:06 ? Name/Contact Info for Questions About Discharge OrdersDaniela Torres NP [phone] Appointments: Follow-Up Appointment 01: ? Physician/Dept/ServicePsychiatrist ? Reason for ReferralHospital follow up ? Call to Schedule in1 week Follow-Up Appointment 02: ? Physician/Dept/ServicePrimary Care Provider ? Reason for ReferralHospital follow up ? Call to Schedule in1 week Electronic Signatures: Daniela Treviño (CLINICAL LIAISON-SEED PRODUCTION FIELD SUPERVISOR) (Signed 05-Sep-2017 11:09) Authored: Discharge Orders, Hospital Course (Home Care/Gold Form), Provider FINAL REVIEW of Orders, Appointments, Gold Form - Hay Stacker Summary Last Updated: 05-Sep-2017 11:09 by Daniela Treviño (CLINICAL LIAISON-SEED PRODUCTION FIELD SUPERVISOR) CONSULT - PSYCHIATRY Observed: 09/02/2017 Status: COMPLETED Source: DRIVER 9:39 PM HOSPITALS REPOSITORY Referral Information: Reason: overdose History of Present Illness: Admission Reason: overdose HPI: This is a 37-year-old male with a long history of alcohol dependency, schizoaffective disorder bipolar type, who resides in a long term. Pt was discharged for ETOH detox 2 days ago and readmitted for impulsive overdose of prescription medication From ED HPI: This is a 37yoM just discharged yesterday for alcohol withdrawal who presents for overdose. Pt says he was trying to avoid drinking again, so he took his prescribed medications (new bottles - gabapentin, buspirone) and since they made him feel better, he kept taking them by the handful. At some point, he starting taking his neighbor's pills as well, including wellbutrin and another unknown medication. He estimates that he took half of his bottles of buspirone and gabapentin between 5p and 7a in addition to the other pills in unclear quantities. By 7am, he was feeling awful and worried he would , including tremors, headache, abd cramping, sig diaphoresis. Denies drinking alcohol. Denies intent to kill himself. TOX POS THC seen by psychiatry on main campus one month ago after ETOH binge was stable psychiatrically for many years on [facility] [place]. Pt reports that he just got out of detox, he wanted to drink and get high so he took all these pills. He supposed to be taking naltrexone orally daily to prevent drinking but it's not working. Eager to leave the hospital. Patient was not attempting suicide He is impulsive and addicted. Past Psychiatric History: multiple past psychiatric and detox admissions suicide attempts: attempted to jump out of moving car in the past current agency: [facility] MSE: pressured, Hyperverbal, anxious, mild euphoria. Fully oriented. Not suicidal or psychotic. Very poor insight into the triggers and his impulsivity. Reports he really does want to stop drinking Imp: Alcohol dependence Polypharmacy abuse Polypharmacy overdose Schizoaffective bipolar-type hypomanic Plan: Resume Geodon and BuSpar and gabapentin as prescribed by his outpatient doctor. Return to his outpatient clinic as scheduled Discussed with patient a normal dose of Wellbutrin in combination with alcohol can cause seizures, and an overdose of Wellbutrin alone can cause seizures. He has been started on Wellbutrin recently, we will discontinue it. pt has failed naltrexone orally, likely needs injectable monthly. start Campral 333 mg 3 times a day Further discuss with patient, he needs 90-120 days residential substance and psychiatric care - he reports [facility] looking [facility] some different options for him. This patient will not succeed with serial detox Past Psychiatric History: see HPI Allergies: ? morphine: Hives/Urticaria ? Horse: Swelling/Edema, Anaphylaxis, Facial Swelling ? opiates: Unknown ? narcotic analgesics: Unknown Medications Prior to Admission: Outpatient Meds have not been reviewed. OARRS Review: OARRS checked: no Objective: Objective Information: T PRBPSpO2 [id number]/8297% Date/Time09/02 15: 15: 15: 15: 15:33 Range(36C - 36.5C ) (61 - 102 ) (9 - 19 ) (104 - 122 )/ (61 - 82 ) (97% - 100% ) Pain at Rest reported at 09/02 19:39: 0 Functional Estimates: Estimate of Intelligence: below average Estimate of Capacity for Activities of Daily Living: independent Medications: Continuous Medications No continuous medications are active Scheduled Medications 1. busPIRone: 15 mg Oral Every 8 Hours 2. Pantoprazole: 40 mg Oral 2 Times a Day 3. Thiamine: 100 mg Oral Daily 4. Ziprasidone: 40 mg Oral 2 Times a Day PRN Medications No PRN medications are active Recent Lab Results: Results: I have reviewed these laboratory results: Complete Blood Count Trending View [id number] 05:05:00 30-Aug-2017 08:13:00 White Blood Cell Count5.5 6.2 Red Blood Cell Count4.40 L 4.34 L HGB13.8 13.9 HCT42.8 41.6 MCV97 96 MCHC32.2 33.4 VRX082 150 RDW-CV14.2 13.4 Nucleated Erythrocyte Count 0.0 Renal Function Panel Trending View [id number] 05:05:00 01-Sep-2017 09:05:00 Glucose, Serum82 101 H NA140 138 K3.6 4.1 CL104 103 Bicarbonate, Serum29 26 Anion Gap, Serum11 13 BUN11 20 CREAT0.61 0.70 GFR-Non >60 >60 GFR->60 >60 Calcium, Serum8.6 9.7 Phosphorus, Serum4.0 3.0 ALB3.5 4.2 Magnesium, Serum 02-Sep-2017 05:05:00 ResultValue Magnesium, Serum 2.20 Hepatic Function Panel 01-Sep-2017 09:05:00 ResultValue Aspartate Transaminase, Serum 34 ALB 4.2 T Bili 0.3 Bilirubin, Serum Direct - Conjugated 0.1 ALKP 137 H Alanine Aminotransferase, Serum 48 T Pro 7.2 Complete Blood Count + Differential 01-Sep-2017 09:05:00 ResultValue White Blood Cell Count 7.9 Nucleated Erythrocyte Count 0.0 Red Blood Cell Count 4.30 L HGB 13.8 HCT 40.1 L MCV 93 MCHC 34.4 PLT 182 RDW-CV 14.4 Neutrophil % 71.8 Immature Granulocytes % 0.9 Lymphocyte % 14.6 Monocyte % 11.3 Eosinophil % 0.9 Basophil % 0.5 Neutrophil Count 5.70 Lymphocyte Count 1.16 L Monocyte Count 0.90 Eosinophil Count 0.07 Basophil Count 0.04 Drug Screen, Blood 01-Sep-2017 09:05:00 ResultValue Acetaminophen Level, Serum <10.0 Reference Range: >5.0 POSITIVE Barbiturate Screen, Serum NEGATIVE Phenytoin Level, Serum <2.5 Reference Range: >5.0 POSITIVE Theophylline Level, Serum <2.5 Reference Range: >5.0 POSITIVE Tricyclics, Serum NEGATIVE Acetylsalicylic Acid Level, Serum <3 Reference Range: >2 POSITIVE Alcohol, Drug Screen, Blood <10 Drug Screen, Urine 01-Sep-2017 08:51:00 ResultValue Comments. SEE BELOW Drug screen results are presumptive and should not be used to assess compliance with prescribed medication. Contact the performing [facility] laboratory to add-on definitive confirmatory testing if clinically indicated. . Toxicology scre Amphetamine Screen, Urine PRESUMPTIVE NEGATIVE CUTOFF LEVEL: 500 NG/ML Cross-reactivity has been reported with high concentrations of the following drugs: buproprion, chloroquine, chlorpromazine, ephedrine, mephentermine, fenfluramine, phentermine, phenylpropanolamine Barbiturate Screen, Urine PRESUMPTIVE NEGATIVE PRESUMPTIVE NEGATIVE CUTOFF LEVEL: 200 NG/ML Benzodiazepine Screen, Urine PRESUMPTIVE NEGATIVE PRESUMPTIVE NEGATIVE CUTOFF LEVEL: 200 NG/ML Cannabinoid Screen, Urine PRESUMPTIVE POSITIVE PRESUMPTIVE POSITIVE CUTOFF LEVEL: 50 NG/ML A Cocaine Metabolite Screen, Urine PRESUMPTIVE NEGATIVE PRESUMPTIVE NEGATIVE CUTOFF LEVEL: 150 NG/ML Methadone Screen, Urine PRESUMPTIVE NEGATIVE CUTOFF LEVEL: 150 NG/ML The metabolite D-vfvvp-yothvbgqehibvh (LAAM) is not detected by this method in concentrations that would be found in the urine of patients on LAAM therapy. Opiate Screen, Urine PRESUMPTIVE NEGATIVE CUTOFF LEVEL: 300 NG/ML The opiate screen does not detect fentanyl, meperidine, or tramadol. Oxycodone is not consistently detected (refer to Oxycodone Screen, Urine result). Oxycodone Screen, Urine (item) PRESUMPTIVE NEGATIVE CUTOFF LEVEL: 100 NG/ML This test will accurately detect both oxycodone and oxymorphone. PCP Screen, Urine PRESUMPTIVE NEGATIVE CUTOFF LEVEL: 25 NG/ML Cross-reactivity has been reported with dextromethorphan. Urinalysis 01-Sep-2017 08:51:00 ResultValue Color, Urine YELLOW Reference Range: STRAW,YELLOW Appearance, Urine CLEAR Specific [place], Urine 1.009 pH, Urine 5.0 Protein, Urine NEGATIVE Glucose, Urine NEGATIVE Blood, Urine NEGATIVE Ketones, Urine NEGATIVE Bilirubin, Urine NEGATIVE Urobilinogen, Urine <2.0 Nitrite, Urine NEGATIVE Leukocyte Esterase, Urine NEGATIVE Comprehensive Metabolic Panel 30-Aug-2017 08:13:00 ResultValue Glucose, Serum 88 NA 139 K 3.8 CL 105 Bicarbonate, Serum 26 Anion Gap, Serum 12 BUN 15 CREAT 0.54 GFR-Non >60 GFR- >60 Calcium, Serum 9.3 ALB 3.6 ALKP 128 H T Pro 5.8 L T Bili 0.4 Alanine Aminotransferase, Serum 33 Aspartate Transaminase, Serum 24 Radiology Results: Results: Xray Chest 1 View [Sep 01 2017 8:40AM] Electrocardiogram 12 Lead [Aug 04 2017 8:08AM] Electrocardiogram 12 Lead [Aug 04 2017 8:08AM] Normal sinus rhythm Normal ECG When compared with ECG of 21-JUL-2017 21:18, Previous ECG has undetermined rhythm, needs review Confirmed by DINORA KABA MD ([id number]) on 08/04/2017 8:07:56 AM Assessment/Recommendations: Psychiatric Risk Assessment: Violence Risk Assessment: major mental illness, male, substance abuse Acute Risk of Harm to Others is Considered: minimal Suicide Risk Assessment: current psychiatric illness, male, prior suicide attempt, substance abuse Protective Factors against Suicide: marriage / partnership, social support / connectedness Risk of Harm to Self is Considered: minimal Assessment: see HPI Signature/Cosignature/Attestation: Sign/Cosign/Attest: Provider/Team Contact Info-Pager Pau Butterfield MD Electronic Signatures: La Butterfield) (Signed 05-Sep-2017 08:39) Authored: Referral Information, History of Present Illness, Past Psychiatric History, Allergies, Medications Prior to Admission, Objective, Assessment/Recommendations, Signature/Cosignature/Attestation Last Updated: 05-Sep-2017 08:39 by La Butterfield) DISCHARGE PLANNING Observed: 09/02/2017 Status: UNK Source: UNIVERSITY NOTE 12:50 PM HOSPITALS REPOSITORY Adult Information: ? Lives Withsignificant other Patient Learning: ? Factors that Impact Ability to Learncomprehension, hearing problems, learning disabilities(1) Other Factors: ? Functional Screen: In the recent/past 2-4 weeks, patient or family have noticedno issues that require a rehabilitation consult at this time(2) Discharge Planning: Discharge Planning: This is a 37yoM just discharged yesterday for alcohol withdrawal who presents for overdose. Pt says he was trying to avoid drinking again, so he took his prescribed medications (new bottles - gabapentin, buspirone) and since they made him feel better, he kept taking them by the handful. At some point, he starting taking his neighbor's pills as well, including wellbutrin and another unknown medication. He estimates that he took half of his bottles of buspirone and gabapentin between 5p and 7a in addition to the other pills in unclear quantities Above per MD notes. Spoke to patient. He lives with his girlfriend. He is independent with care. He last got his meds filled at [facility]. He has substance abuse problems; but declines any resources. He plans to return to girlfriends home. He states he has medical and prescription insurance. He is self ambulatory. He has sitter and psych consult for possible suicidal ideations. Alejo gonzalez 09/05/2017 1305 discharged home with girlfriend no home going needs at this time to follow up with psychiatry and his medical doctor Александр GONZALEZ Final Disposition/Discharge: Disposition/Discharge Information: Discharge/Transfer Information: ? Discharge/Transfer Date/[id number] 13:05 ? Discharged Accompanied Byfriend; girlfriend ? Discharge Modeambulatory ? Transportation Methodprivate car ? Valuables/Medications/Belongings Returnedyes ? Security Envelope Returnednone ? Belongings Commentpt took all belongings ? Final DispositionHome Electronic Signatures: Kenna Cotto (RN) (Signed 05-Sep-2017 15:50) Authored: Discharge Planning Note, Final Disposition/Discharge Cecille Arroyo (CLIN COOR) (Signed 02-Sep-2017 12:52) Authored: Discharge Planning Note Last Updated: 05-Sep-2017 15:50 by Kenna Cotto (RN) References: 1. Data Referenced From 5. Education 09/01/2017 4:18 PM 2. Data Referenced From Admission Risk Screen - Adult 09/01/2017 4:18 PM CBC Collected: 09/02/2017 Status: F Source: DRIVER 5:05 AM HOSPITALS REPOSITORY TYPE CODE TESTS RESULT OUT OF RANGE REFERENCE UNITS LAB WBCR(LOINC) 4.4 - 11.3 x10E9/L WBC 5.5 LAB RBCCT(LOINC 4.50 - 5.90 x10E12/L ) Low RBC 4.40 LAB HGB(LOINC) 13.5 - 17.5 g/dL HGB 13.8 LAB HCT(LOINC) 41.0 - 52.0 % HCT 42.8 LAB MCV(LOINC) 80 - 100 fL MCV 97 LAB MCHC2(LOINC 32.0 - 36.0 g/dL ) MCHC 32.2 LAB PLTCT(LOINC 150 - 450 x10E9/L ) PLT 162 LAB RDWCV(LOINC 11.5 - 14.5 % ) RDW-CV 14.2 Performed By: #### CBC #### [facility] [address] [id number] MAGNESIUM Collected: 09/02/2017 Status: F Source: DRIVER 5:05 [facility] REPOSITORY TYPE CODE TESTS RESULT OUT OF REFERENCE UNITS RANGE LAB MG(LOINC) 1.60 - 2.40 mg/dL MAGNESIUM 2.20 Performed By: #### MG #### [facility] [address] [id number] RENAL FUNCTION PANEL Collected: 09/02/2017 Status: F Source: DRIVER 5:[address] [place] [address] REPOSITORY TYPE CODE TESTS RESULT OUT OF REFERENCE UNITS RANGE LAB GLU(LOINC) 74 - 99 mg/dL GLUCOSE 82 LAB SOD(LOINC) 136 - 145 mmol/L SODIUM 140 LAB K(LOINC) 3.5 - 5.3 mmol/L POTASSIUM 3.6 LAB CHLOR(LOIN 98 - 107 mmol/L C) CHLORIDE 104 LAB BIC(LOINC) 21 - 32 mmol/L BICARBONATE 29 LAB ANGAP(LOIN 10 - 20 mmol/L C) ANION GAP 11 LAB UREA(LOINC 6 - 23 mg/dL ) UREA NITROGEN 11 LAB CREA(LOINC 0.50 - 1.30 mg/dL ) CREATININE 0.61 LAB GFRFN(LOIN >60 mL/min/1.7 C) 3m2 GFR-NON AM. >60 LAB GFRAA(LOIN >60 mL/min/1.7 C) 3m2 GFR- AM. >60 Result Comment: CALCULATIONS OF ESTIMATED GFR ARE PERFORMED USING THE MDRD STUDY EQUATION FOR THE IDMS-TRACEABLE CREATININE METHODS. CLIN CHEM 2007;53:766-72 LAB CA(LOINC) 8.6 - 10.3 mg/dL CALCIUM 8.6 LAB PHOS(LOINC) 2.5 - 4.9 mg/dL PHOSPHORUS 4.0 Result Comment: The performance characteristics of phosphorus testing in heparinized plasma have been validated by the individual laboratory site where testing is performed. Testing on heparinized plasma is not approved by the FDA; however, such approval is not necessary. LAB ALB(LOINC) 3.4 - 5.0 g/dL ALBUMIN 3.5 Performed By: #### RENAL #### [facility] [address] [id number] HISTORY AND PHYSICAL Observed: 09/01/2017 Status: COMPLETED Source: [facility] 5:59 PM HOSPITALS REPOSITORY Service: Critical Care Service: ? ServiceMICU History of Present Illness: Admission Reason: Overdose polypharmacy HPI: This 37 YO male was admitted as a transfer from [facility] after he took 45-50 Neurontin, 20-30 Buspar and 14-15 Wellbutrin tabs (unknown strength) Reports are inconsistent as he stated he initially took these to counteract the effects of just being discharged from alcohol rehab the day before. He obtained the pills from one of his girlfriends and took them over the course of several hours. He was seen and evaluated at [facility] ED and concerns for delayed presentation go sedation led to his admission to the ICU. In the ICU there were concerns for his intent and choice of multiple medications and statements that this was intentional. Psychiatric has been consulted. PMH Schizoaffective disorder Polysubstance abuse (alcohol use, cocaine, cannabis, and smoking) Awake polite alert symmetric chest expansion RRR ABD bland non tender. IMP possible overdose toxicology screen only positive for cannabis Plan observation for respiratory depression Symptom 1: Symptom Duration: year(s) Associated Signs and Symptoms: polysubstanvce abuse poor insight judgement agitation Symptom Onset/Pattern: waxing and waning Severity: moderate Timing: all the time Context: exacerbated with substance ingestion Past Medical/Surgical History: Medical History: Overdose of antidepressant: Overdose of antipsychotic: Alcohol addiction: Schizoaffective disorder: Social History: Social History: Smoking Statusunable to assess Alcohol Usehistory of abuse Drug Usehistory of abuse Allergies: ? morphine: Hives/Urticaria ? Horse: Swelling/Edema, Anaphylaxis, Facial Swelling ? opiates: Unknown ? narcotic analgesics: Unknown Medications Prior to Admission: Admission Medication Reconciliation has not been completed for this patient. Objective: Objective Information: ? Objective Information Weights 09/01 16:34: Weight in kg (Weight (kg)) 77.1 09/01 16:34: Weight in lbs ((lbs)) 170 09/01 16:34: BMI (kg/m2) (BMI (kg/m2)) 21.245 Recent Lab Results: Results: Assessment and Plan: Neurology: Diagnosis: This 37 YO male was admitted as a transfer from [facility] after he took 45-50 Neurontin, 20-30 Buspar and 14-15 Wellbutrin tabs (unknown strength) Reports are inconsistent as he stated he initially took these to counteract the effects of just being discharged from alcohol rehab the day before. He obtained the pills from one of his girlfriends and took them over the course of several hours. He was seen and evaluated at [facility] ED and concerns for delayed presentation go sedation led to his admission to the ICU. In the ICU there were concerns for his intent and choice of multiple medications and statements that this was intentional. Psychiatric has been consulted. PMH Schizoaffective disorder Polysubstance abuse (alcohol use, cocaine, cannabis, and smoking) Awake polite alert symmetric chest expansion RRR ABD bland non tender. Assessment: IMP possible overdose toxicology screen only positive for cannabis Plan: Plan observation for respiratory depression, psychiatry evaluation suicide ideation Code Status: ? Code StatusFull Code Problem List: Medical History: Overdose of antidepressant: Overdose of antipsychotic: Alcohol addiction: Schizoaffective disorder: Signatures/Attestation/Certification: Critical Care PatientI have reviewed and evaluated the most recent data and results, personally examined the patient, and formulated the plan of care as presented above. This patient was critically ill and required continued critical care treatment. Teaching and any separately billable procedures are not included in the time calculation. Billing Provider Critical Care Time30 minute(s) Primary Critical Care Issue/Treatment (See Assessment and Plan for greater detail)-- This patient has significantly altered mental status (delirium, encephalopathy, coma, or anoxic brain damage). We are treating with appropriate medications, hemodynamic support, ventilatory and/or oxygenating support, as indicated, as well as doing intensive diagnostic evaluation and neurological monitoring. Please see assessment and plan above for greater detail.; -- This patient is known, or believed, to have sustained a life-threatening overdose. We are treating with appropriate medications, hemodynamic support, dialysis, ventilatory and/or oxygenating support, as indicated, as well as doing intensive diagnostic evaluation and monitoring. Please see assessment and plan above for greater detail. Attending Provider ? Inpatient Certification StatementI certify this patient?s need for inpatient care based on the above documentation including; the order to admit as inpatient, the anticipated length of stay, diagnosis, problem list and plan of care, and discharge plan. Electronic Signatures: Frank Dahl) (Signed 02-Sep-2017 12:02) Authored: Service, History of Present Illness, Comorbidities, Past Medical/Surgical History, Social History, Allergies, Medications Prior to Admission, Objective, Assessment and Plan, Signatures/Attestation/Certification Last Updated: 02-Sep-2017 12:02 by Frank Dahl) PATIENT PROFILE - Observed: 09/01/2017 Status: UNK Source: DRIVER ADULT 4:34 PM HOSPITALS REPOSITORY Profile: Initial Info: How to be AddressedKURT Spoken Language PreferredEnglish (1) Source of Informationpatient Are you currently using the Personal Electronic Health Record or MYCAREno Are you interested in learning more about MYCARE for the management of your healthyes, information provided Stated Reason for AdmissionTook too many pills Primary Contact Name and NumberGeri Aguilar (mom)[phone] Other Contact Names and NumbersSandra Rodriguez(girlfriend) [phone] Arrived Fromemergency department Was Admitted To in Past 90 Dayshospital Employment Statusdisabled Patient Belongingsremains with patient Patient Belongings Remaining with Patientclothing; cell phone/electronics; smith/credit card Medications Brought to Hospitalno General Health: Weight in kg77.1 kilogram(s) Weight in ibd352 pound(s) Height in feet6 feet Height in inches3 inch(es) Height in cm190.5 centimeter(s) BMI (kg/m2)21.245 square meter Weight Methodstated Scale Typebed Height Methodstated Blood Avoidance/Restrictionsnone RSP Based Care: How would you like to participate in your care?Kept in the loop about whats going on What is the number one concern for you during this hospitalization?my own safety What is the most important thing we can do to support you during this hospitalization?Let me see my family Is there anything we need to know to best care for you?sometimes I have episodes, I get angry easily Substance: Current or Former Substance Use YES: Cigarette/Tobacco, e-Cigarette/Vaping, Alcohol, Street Drugs Tobacco Cessation Education (provide if tobacco use within the last 12 mos) patient declined Alcohol Use Statuspast alcohol Alcohol Amount7-9 drinks Alcohol Frequencydaily Alcohol Typeliquor; wine; beer Method of Quittingdetox unit Street Drug/Inhalant/ Medication Use Statuscurrent street drug/inhalant/medication abuse Street Drug/Medication/ Inhalant Typemarijuana Street Drug/Medication/ Inhalant Routesmoking Frequency of Street Drug/Medication/Inhalant Use2-4 times/month Health Mgmt: Symptoms/Conditions Managed at Homebehavioral health; musculoskeletal; neurological Behavioral Health Symptoms/Conditionsanxiety; depression; substance use; ADHD/ADD Behavioral Management Strategiescounseling Behavioral Health Managementmanaged Musculoskeletal Symptoms/Conditionsback pain Musculoskeletal Managementmanaged Neurological Symptoms/Conditionsseizures Neurological Management Strategiescounseling Neurological Managementmanaged Relationship/Environ: Primary Source of Support/Comfortfriend; parent; sibling(s) Lives Withfriend(s) Living Arrangementshomeless/fci Resource/Environmental Concernsfinancial Anticipated Transition Tofamily members' home Services Anticipated at Transitioncase 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 Allergies, Home Meds and Significant Events have been Reviewed and Verified with Patient/Familyyes ALLERGY, INTOLERANCE, ADVERSE EVENT: Allergies: ? morphine: Drug, Hives/Urticaria, Active ? Horse: Environment, Swelling/Edema, Anaphylaxis, Facial Swelling, Active ? opiates: Drug Category, Unknown, Active ? narcotic analgesics: Drug Category, Unknown, Active Electronic Signatures: Albino Casillas (GARY) (Signed 01-Sep-2017 17:00) Authored: Profile, Additional Information Last Updated: 01-Sep-2017 17:00 by Albino Casillas (GARY) References: 1. Data Referenced From Patient Profile - Adult v2 07/22/2017 6:36 AM ADMISSION RISK SCREEN Observed: 09/01/2017 Status: UNK Source: UNIVERSITY - ADULT 4:18 PM HOSPITALS REPOSITORY Patient Verification: ? New W ID Band Applied in my Departmentyes ? Patient Identity Verified Bypatient ? ID Band FULL Name, include Middle, spelling matches patient's ID used for verificationyes ? ID Band Matches Patient ID used for Verficationyes ? ID Band MRN Matches EMR MRNyes Advance Directive: ? Advance Directive Medicalno ? Advance Directive Information Givenpatient/family declined ? Advance Directive Mental Healthnot applicable Falls Screen: Type of Assessmentadmission Moderate Risk Factorspatient care equipment (scds, iv?s, chest tubes, mohr, etc) Risk for Injury Associated with Fallnone Fall Risk Conclusionmoderate falls risk with low risk for associated injury [place] Safety InterventionsWDL *orient to call system *instruct to call for assistance before getting out of bed *non-slip footwear when patient is out of bed *call cardona in reach *personal items and telephone in reach *physically safe environment (no spills or clutter) *bed in lowest position with wheels locked *appropriate side rails in place *room/bathroom lighting operational, light cord in reach *appropriate signage on door Fall and Injury Risk Interventionseducate pt/family Family Violence Screen: ? Are you or have you been threatened or abused physically, emotionally, or sexually by anyone?no ? Do you feel UNSAFE going back to the place where you are living?no ? Clinical assessment: Are there any apparent signs of injuries/behaviors that could be related to abuse/neglectno ? Social Service Consult for abuse/neglect needed this visit?no Functional screen: ? Functional Screen: In the recent/past 2-4 weeks, patient or family have noticedno issues that require a rehabilitation consult at this time Learning Assessment (Patient): ? Patient is Able to be Assessed for Learningyes ? Factors Influencing Readiness to Learnanxiety ? Factors that Impact Ability to Learncomprehension, hearing problems, learning disabilities ? Devices/Methods Used to Communicatenone ? Learning Preferencesverbal instruction ? Cultural Considerationsnone ? Developmental Considerationsnone ? Orthodox Considerationsnone Learning Assessment (Other Learner): ? Other learner availableno Suicide/Depression Screen: ? During the past month, have you often been bothered by feeling down, depressed or hopeless?no ? During the past month, have you often had little interest or pleasure in doing things?no ? Have you had any thoughts of harming yourself?yes ? Have you had any thoughts of harming anyone else?no Adult Nutrition Screen: ? Have you recently lost weight without tryingno ? Have you been eating poorly because of a decreased appetiteno ? MST Score0 ? RiskMST = 0 or 1 Not at risk. Eating well with little or no weight loss ? Nutrition Consult needed this visit?no ? Can Patient Participate in Room Service?yes ? Patient requires Paper Dishes/Plastic Utensilsyes (sends order) Pain Screen: ? Pain Scalenumerical 0-10 ? Pain Scale Educationteaching provided ? Current Pain Level5 = Moderate ? Acceptable Pain Level5 = Moderate ? Expression of Pain (nonverbal)none ? Chronic Painyes ? Chronic Abdomen pain locationlower, lower quadrant ? Chronic Back pain locationleft, lumbar spine ? Description of Pain (frequency/quality)occasional ? Factors that Aggravate Painactivity ? Factors that Relieve Painnone Spiritual Screen: ? Are there any cultural, spiritual, anglican practices/values/needs that are important for us to know?no ? Do you want a visit/item from Pastoral Care?no ? Would you like your Dock Superintendent/Manager Medicaid notified?no CAGE: Is this an injured patient at a Trauma Center ([facility] / [facility]): no Vaccinations: Vaccination - Influenza Vaccination Screen: ? Is it flu season? (between and )No Vaccination - Pneumonia Vaccination Screen: ? Patient has received a previous pneumonia vaccine:yes Malik: Skin - Malik Scale: ? Malik: Sensory Perception (response to environment)(4) no impairment ? Malik: Moisture (degree skin exposed to moisture)(4) rarely moist ? Malik: Activity (ability to walk)(3) walks occasionally ? Malik: Mobility (amount/control of body movement)(4) no limitation ? Malik: Nutrition (quality of food intake)(3) adequate ? Malik: Friction and Shear(3) no apparent problem ? Malik: Score21 Significant Indicatiors: Significant Indicators: Complete Pressure Injury: Pressure Injury Present on Admissionno Electronic Signatures: Richard Sanders (GARY) (Signed 02-Sep-2017 08:56) Authored: Admission Risk Screens Albino Casillas) (Signed 01-Sep-2017 16:34) Authored: Admission Risk Screens, Vaccinations, Malik, Pressure Injury Last Updated: 02-Sep-2017 08:56 by Richard Sanders (GARY) CBC AND DIFFERENTIAL Collected: 09/01/2017 Status: F Source: UNIVERSITY 9:05 AM HOSPITALS REPOSITORY TYPE CODE TESTS RESULT OUT OF REFERENCE UNITS RANGE LAB WBCR(LOINC 4.4 - 11.3 x10E9/L ) WBC 7.9 LAB NRBC(LOINC 0.0-0.0 /100 WBC ) NUCLEATED RBC 0.0 LAB RBCCT(LOIN 4.50 - 5.90 x10E12/L C) Low RBC 4.30 LAB HGB(LOINC) 13.5 - 17.5 g/dL HGB 13.8 LAB HCT(LOINC) 41.0 - 52.0 % Low HCT 40.1 LAB MCV(LOINC) 80 - 100 fL MCV 93 LAB MCHC2(LOIN 32.0 - 36.0 g/dL C) MCHC 34.4 LAB PLTCT(LOIN 150 - 450 x10E9/L C) PLT 182 LAB RDWCV(LOIN 11.5 - 14.5 % C) RDW-CV 14.4 LAB NEUT(LOINC 40.0 - 80.0 % ) % NEUTROPHIL 71.8 LAB IG(LOINC) 0.0 - 0.9 % % AUTOMATED 0.9 IMMATURE GRAN Result Comment: Percent differential counts (%) should be interpreted in the context of the absolute cell counts (cells/L). LAB LYMPH(LOINC) 13.0 - 44.0 % % LYMPHOCYTE 14.6 LAB MONO(LOINC) 2.0 - 10.0 % % MONOCYTE 11.3 LAB EOS(LOINC) 0.0 - 6.0 % % EOSINOPHIL 0.9 LAB BASO(LOINC) 0.0 - 2.0 % % BASOPHIL 0.5 LAB #NEUT(LOINC) 1.20 - 7.70 x10E9/L NEUTROPHIL 5.70 LAB #LYMP(LOINC) 1.20 - 4.80 x10E9/L LYMPHOCYTE Low 1.16 LAB #MONO(LOINC) 0.10 - 1.00 x10E9/L MONOCYTE 0.90 LAB #EOS(LOINC) 0.00 - 0.70 x10E9/L EOSINOPHIL 0.07 LAB #BASO(LOINC) 0.00 - 0.10 x10E9/L BASOPHIL 0.04 Performed By: #### CBCDF #### [facility] [address] [place] [address] DRUG SCREEN, BLOOD Collected: 09/01/2017 Status: F Source: DRIVER 9:05 [facility] REPOSITORY TYPE CODE TESTS RESULT OUT OF REFERENCE UNITS RANGE LAB ACETT(LOIN >5.0 POSITIVE mg/L C) ACETAMINOPHEN <10.0 LAB BARBT(LOIN C) SERUM BARBITURATES NEGATIVE LAB PHEYT(LOIN >5.0 POSITIVE ug/mL C) PHENYTOIN <2.5 LAB THEOT(LOIN >5.0 POSITIVE ug/mL C) THEOPHYLLINE <2.5 LAB TRICT(LOIN C) TRICYCLICS, SERUM NEGATIVE LAB SALT(LOINC >2 POSITIVE mg/dL ) SALICYLATE <3 LAB ALCT(LOINC mg/dL ) ALCOHOL <10 Result Comment: FOR MEDICAL USE ONLY. REF VALUES < 10 Performed By: #### DRUGB #### [facility] [address] [place] [address] HEPATIC FUNCTION Collected: 09/01/2017 Status: F Source: [facility] 9:05 [facility] REPOSITORY TYPE CODE TESTS RESULT OUT OF REFERENCE UNITS RANGE LAB ALB(LOINC) 3.4 - 5.0 g/dL ALBUMIN 4.2 LAB TBILI(LOIN 0.0 - 1.2 mg/dL C) BILIRUBIN,TOTAL 0.3 LAB DBILI(LOIN 0.0 - 0.3 mg/dL C) BILIRUBIN,DIRECT 0.1 LAB AP(LOINC) 33 - 120 U/L ALKALINE High PHOSPHATASE 137 LAB ALT(LOINC) 10 - 52 U/L ALT 48 Result Comment: Patients treated with Sulfasalazine may generate falsely decreased results for ALT. LAB AST(LOINC) 9 - 39 U/L AST 34 LAB TP(LOINC) 6.4 - 8.2 g/dL TOTAL PROTEIN 7.2 Performed By: #### HEPFP #### [facility] [address] [place] [id number] RENAL FUNCTION PANEL Collected: 09/01/2017 Status: F Source: DRIVER 9:[address] [place] [address] REPOSITORY TYPE CODE TESTS RESULT OUT OF REFERENCE UNITS RANGE LAB GLU(LOINC) 74 - 99 mg/dL GLUCOSE High 101 LAB SOD(LOINC) 136 - 145 mmol/L SODIUM 138 LAB K(LOINC) 3.5 - 5.3 mmol/L POTASSIUM 4.1 LAB CHLOR(LOIN 98 - 107 mmol/L C) CHLORIDE 103 LAB BIC(LOINC) 21 - 32 mmol/L BICARBONATE 26 LAB ANGAP(LOIN 10 - 20 mmol/L C) ANION GAP 13 LAB UREA(LOINC 6 - 23 mg/dL ) UREA NITROGEN 20 LAB CREA(LOINC 0.50 - 1.30 mg/dL ) CREATININE 0.70 LAB GFRFN(LOIN >60 mL/min/1.7 C) 3m2 GFR-NON AM. >60 LAB GFRAA(LOIN >60 mL/min/1.7 C) 3m2 GFR- AM. >60 Result Comment: CALCULATIONS OF ESTIMATED GFR ARE PERFORMED USING THE MDRD STUDY EQUATION FOR THE IDMS-TRACEABLE CREATININE METHODS. CLIN CHEM 2007;53:766-72 LAB CA(LOINC) 8.6 - 10.6 mg/dL CALCIUM 9.7 LAB PHOS(LOINC) 2.5 - 4.9 mg/dL PHOSPHORUS 3.0 Result Comment: The performance characteristics of phosphorus testing in heparinized plasma have been validated by the individual laboratory site where testing is performed. Testing on heparinized plasma is not approved by the FDA; however, such approval is not necessary. LAB ALB(LOINC) 3.4 - 5.0 g/dL ALBUMIN 4.2 Performed By: #### RENAL #### [facility] [address] [place] [address] URINALYSIS Collected: 09/01/2017 Status: F Source: DRIVER 8:51 AM HOSPITALS REPOSITORY TYPE CODE TESTS RESULT OUT OF REFERENCE UNITS RANGE LAB COLU(LOINC STRAW,YELLOW ) COLOR YELLOW LAB APPRU(LOIN CLEAR C) APPEARANCE CLEAR LAB SPGRU(LOIN 1.005 - 1.035 C) SPECIFIC GRAVITY 1.009 LAB NESTOR(LOINC) 5.0 - 8.0 pH 5.0 LAB PROTU(LOIN NEGATIVE mg/dL C) PROTEIN NEGATIVE LAB GLUCU(LOIN NEGATIVE mg/dL C) GLUCOSE NEGATIVE LAB BLDU(LOINC NEGATIVE ) BLOOD NEGATIVE LAB KETU(LOINC NEGATIVE mg/dL ) KETONES NEGATIVE LAB BILIU(LOIN NEGATIVE C) BILIRUBIN NEGATIVE LAB UROU2(LOIN 0.0 - 1.9 mg/dL C) UROBILINOGEN <2.0 LAB NITRU(LOIN NEGATIVE C) NITRITE NEGATIVE LAB LEUKU(LOIN NEGATIVE C) LEUKOCYTE ESTERASE NEGATIVE Performed By: #### UA #### [facility] [address] [place] [address] DRUG SCREEN,URINE Collected: 09/01/2017 Status: F Source: UNIVERSITY 8:51 AM HOSPITALS REPOSITORY TYPE CODE TESTS RESULT OUT OF REFERENCE UNITS RANGE LAB AMPH(LOIN NEGATIVE C) AMPHETAMINE PRESUMPTIVE SCREEN,U NEGATIVE Result Comment: CUTOFF LEVEL: 500 NG/ML Cross-reactivity has been reported with high concentrations of the following drugs: buproprion, chloroquine, chlorpromazine, ephedrine, mephentermine, fenfluramine, phentermine, phenylpropanolamine, pseudoephedrine, and propranolol. LAB ARIANNA(LOINC) NEGATIVE BARBITURATES PRESUMPTIVE SCREEN,U NEGATIVE Result Comment: CUTOFF LEVEL: 200 NG/ML LAB BENZO(LOINC) NEGATIVE BENZODIAZEPINES SCREEN,U PRESUMPTIVE NEGATIVE Result Comment: CUTOFF LEVEL: 200 NG/ML LAB SHIRLEY(LOINC) NEGATIVE Abnormal CANNABINOIDS PRESUMPTIVE SCREEN,U POSITIVE Result Comment: CUTOFF LEVEL: 50 NG/ML LAB COCAI(LOINC) NEGATIVE COCAINE PRESUMPTIVE METABOLITE NEGATIVE SCREEN,U Result Comment: CUTOFF LEVEL: 150 NG/ML LAB METHD(LOINC) NEGATIVE PRESUMPTIVE METHADONE NEGATIVE SCREEN,U Result Comment: CUTOFF LEVEL: 150 NG/ML The metabolite P-efuge-lxqpldrmmddbrz (LAAM) is not detected by this method in concentrations that would be found in the urine of patients on LAAM therapy. LAB OPIAT(LOINC) NEGATIVE PRESUMPTIVE OPIATES NEGATIVE SCREEN,U Result Comment: CUTOFF LEVEL: 300 NG/ML The opiate screen does not detect fentanyl, meperidine, or tramadol. Oxycodone is not consistently detected (refer to Oxycodone Screen, Urine result). LAB OXYS2(LOINC) NEGATIVE PRESUMPTIVE OXYCODONE NEGATIVE SCREEN,U Result Comment: CUTOFF LEVEL: 100 NG/ML This test will accurately detect both oxycodone and oxymorphone. LAB PCP(LOINC) NEGATIVE PCP PRESUMPTIVE SCREEN,U NEGATIVE Result Comment: CUTOFF LEVEL: 25 NG/ML Cross-reactivity has been reported with dextromethorphan. LAB DRCOM(LOINC) DRUG SCREEN COMMENT SEE BELOW Result Comment: Drug screen results are presumptive and should not be used to assess compliance with prescribed medication. Contact the performing [facility] laboratory to add-on definitive confirmatory testing if clinically indicated. . Toxicology screening results are reported qualitatively. The concentration must be greater than or equal to the cutoff to be reported as positive. The concentration at which the screening test can detect an individual drug or metabolite varies. The absence of expected drug(s) and/or drug metabolite(s) may indicate non-compliance, inappropriate timing of specimen collection relative to drug administration, poor drug absorption, diluted/adulterated urine, or limitations of testing. For medical purposes only; not valid for forensic use. . Interpretive questions should be directed to the laboratory medical directors. Performed By: #### [id number] #### [facility] [address] [place] [address] TH CHEST 1 VIEW Observed: 09/01/2017 Status: F Source: DRIVER 8:51 AM HOSPITALS REPOSITORY Patient Name: ZAINA DOLL STUDY: TH CHEST 1 VIEW; 09/01/2017 8:51 am INDICATION: Signs/Symptoms: overdose. COMPARISON: Radiograph dated 08/03/2017 ACCESSION NUMBER(S): [id number] ORDERING CLINICIAN: MAXINE COMBS FINDINGS: Again seen is the radiopaque metallic density which overlies the inferior right thoracic wall, probably consistent with piercing. The patient is leftward posteriorly rotated CARDIOMEDIASTINAL SILHOUETTE: There is new widening of the superior mediastinum. LUNGS: There is no focal consolidation, sizeable pleural effusion, or pneumothorax. BONES: No acute osseous changes. IMPRESSION: 1. New widening of the superior mediastinum, which may be secondary to rotation. Lateral radiograph could be obtained for further evaluation. 2. No focal consolidation. I personally reviewed the images/study and I agree with the findings as stated. This study was interpreted at [facility], [place], [place]. Electronically signed by: LILIA MATA MD PROVIDER NOTE - ED Observed: 09/01/2017 Status: COMPLETED Source: DRIVER 8:33 AM HOSPITALS REPOSITORY Time Seen: ? Time [id number] 08:21 ED Notes: ? ED Notes CC: overdose HPI: This is a 37yoM just discharged yesterday for alcohol withdrawal who presents for overdose. Pt says he was trying to avoid drinking again, so he took his prescribed medications (new bottles - gabapentin, buspirone) and since they made him feel better, he kept taking them by the handful. At some point, he starting taking his neighbor's pills as well, including wellbutrin and another unknown medication. He estimates that he took half of his bottles of buspirone and gabapentin between 5p and 7a in addition to the other pills in unclear quantities. By 7am, he was feeling awful and worried he would , including tremors, headache, abd cramping, sig diaphoresis. Denies drinking alcohol. Denies intent to kill himself. PMH: reviewed, see EMR, notable for alcohol abuse s/p recent withdrawal Meds: [reviewed, see EMR] [includes thiamine, folate, gabapentin, buspirone] All: opiates, horse Social: hx alcohol abuse ROS: see HPI, otherwise neg VS reviewed, T96.9 HR 129 RR 24 BP 165/94 O2 sat 99% RA General: well developed, well nourished, thin middle aged male appearing younger than stated age HEENT: NC AT pupils dilated but reactive EOMI MMM CV: tachycardic w/o murmur Lungs: CTA b/l no w/r/r Abdomen: soft, NT, ND, no rebound or guarding MSK: spontaneously moving all four extremities, no sig peripheral edema Skin: warm, flushed, sig diaphoresis with hair soaked on his head Neuro: alert, oriented, CN II-XII intact with notable horizontal nystagmus, SILT, strength 5/5 in ext x 4, +tremors at rest, minimal rigidity on exam, gait normal Psych: anxious, uncomfortable, denies SI ED Course: - labs - EKG sinus tachycardia 107bpm normal axis normal intervals QTc 419 inferior Q waves no ST or T wave abnormalities no prior compared; impression sinus tachycardia - poison control contacted - 1L IV NS - Ativan 2mg x 3 doses Medical Decision Making: Nursing note and chart reviewed. Pt d/w attending Dr. Jane. Pt presents after pill ingestion (unknown name and quantities), though certainly did ingest buspirone, wellbutrin and gabapentin. Presentation c/w sympathomimetic toxidrome, including tachycardia, hypertension, mydriasis, agitation, tremors and sig diaphoresis. Less concerned for serotonin syndrome in the absence of sig rigidity, hyperthermia, dec mental status. Sx treated with IV NS and benzodiazepines. EKG w/o concern for arrhythmia. No evidence of sz activity. Anticipate prolonged course of toxicity given large doses ingested of multiple medications likely to interact with each other and affect absorption. Though vitals have temporarily stabilized with ativan and fluids, will admit to ICU for close monitoring and further treatment. Chemical dependency consult would likely be beneficial as he stabilizes. Given lack of available ICU beds at [facility], pt transferred to [facility] ICU. Impression: sympathomimetic toxidrome 2/2 medication overdose Maxine Combs MD Emergency Medicine, PGY3 Triage Vital Signs: ? Triage Information Most recent Vital Sign Value Date Temp (F): 96.9 09-01-2017 08:07 Temp (C): 36.1 09-01-2017 08:07 Heart Rate (beats/min): 129 09-01-2017 08:07 Respirations (breaths/min): 24 09-01-2017 08:07 SpO2 (%): 99 09-01-2017 08:07 BP Systolic (mm Hg): 165 09-01-2017 08:07 BP Diastolic (mm Hg): 94 09-01-2017 08:07 History of Present Illness: This 37 year old Male presents with complaint(s) of overdose(1)pt released from detox yesterday and states he kept taking his meds at home to get rid of his symptoms from the withdrawl unsure of how many pills he took denies si(1) Allergy, Intolerance, Adverse Event: Allergies: ? morphine: Drug, Hives/Urticaria, Active ? opiates: Drug Category, Unknown, Active ? narcotic analgesics: Drug Category, Unknown, Active Outpatient Medication, Review/Add Medications: * Patient Currently Takes Medications as of 31-Aug-2017 12:51 documented in Structured Notes HISTORY ATTESTATION: ? AttestationI have reviewed and confirmed nurse's/medic's notes for patient's medications, allergies, medical history, and surgical history Lab Results: ? Results I have reviewed these laboratory results: Hepatic Function Panel 01-Sep-2017 09:05:00 ResultValue Aspartate Transaminase, Serum 34 ALB 4.2 T Bili 0.3 Bilirubin, Serum Direct - Conjugated 0.1 ALKP 137 H Alanine Aminotransferase, Serum 48 T Pro 7.2 Complete Blood Count + Differential 01-Sep-2017 09:05:00 ResultValue White Blood Cell Count 7.9 Nucleated Erythrocyte Count 0.0 Red Blood Cell Count 4.30 L HGB 13.8 HCT 40.1 L MCV 93 MCHC 34.4 PLT 182 RDW-CV 14.4 Neutrophil % 71.8 Immature Granulocytes % 0.9 Lymphocyte % 14.6 Monocyte % 11.3 Eosinophil % 0.9 Basophil % 0.5 Neutrophil Count 5.70 Lymphocyte Count 1.16 L Monocyte Count 0.90 Eosinophil Count 0.07 Basophil Count 0.04 Renal Function Panel 01-Sep-2017 09:05:00 ResultValue Glucose, Serum 101 H NA 138 K 4.1 CL 103 Bicarbonate, Serum 26 Anion Gap, Serum 13 BUN 20 CREAT 0.70 GFR-Non >60 GFR- >60 Calcium, Serum 9.7 Phosphorus, Serum 3.0 ALB 4.2 Drug Screen, Blood 01-Sep-2017 09:05:00 ResultValue Acetaminophen Level, Serum <10.0 Reference Range: >5.0 POSITIVE Barbiturate Screen, Serum NEGATIVE Phenytoin Level, Serum <2.5 Reference Range: >5.0 POSITIVE Theophylline Level, Serum <2.5 Reference Range: >5.0 POSITIVE Tricyclics, Serum NEGATIVE Acetylsalicylic Acid Level, Serum <3 Reference Range: >2 POSITIVE Alcohol, Drug Screen, Blood <10 Drug Screen, Urine 01-Sep-2017 08:51:00 ResultValue Comments. SEE BELOW Drug screen results are presumptive and should not be used to assess compliance with prescribed medication. Contact the performing [facility] laboratory to add-on definitive confirmatory testing if clinically indicated. . Toxicology scre Amphetamine Screen, Urine PRESUMPTIVE NEGATIVE CUTOFF LEVEL: 500 NG/ML Cross-reactivity has been reported with high concentrations of the following drugs: buproprion, chloroquine, chlorpromazine, ephedrine, mephentermine, fenfluramine, phentermine, phenylpropanolamine Barbiturate Screen, Urine PRESUMPTIVE NEGATIVE PRESUMPTIVE NEGATIVE CUTOFF LEVEL: 200 NG/ML Benzodiazepine Screen, Urine PRESUMPTIVE NEGATIVE PRESUMPTIVE NEGATIVE CUTOFF LEVEL: 200 NG/ML Cannabinoid Screen, Urine PRESUMPTIVE POSITIVE PRESUMPTIVE POSITIVE CUTOFF LEVEL: 50 NG/ML A Cocaine Metabolite Screen, Urine PRESUMPTIVE NEGATIVE PRESUMPTIVE NEGATIVE CUTOFF LEVEL: 150 NG/ML Methadone Screen, Urine PRESUMPTIVE NEGATIVE CUTOFF LEVEL: 150 NG/ML The metabolite D-pcfhm-exrxjulhxuxtfm (LAAM) is not detected by this method in concentrations that would be found in the urine of patients on LAAM therapy. Opiate Screen, Urine PRESUMPTIVE NEGATIVE CUTOFF LEVEL: 300 NG/ML The opiate screen does not detect fentanyl, meperidine, or tramadol. Oxycodone is not consistently detected (refer to Oxycodone Screen, Urine result). Oxycodone Screen, Urine (item) PRESUMPTIVE NEGATIVE CUTOFF LEVEL: 100 NG/ML This test will accurately detect both oxycodone and oxymorphone. PCP Screen, Urine PRESUMPTIVE NEGATIVE CUTOFF LEVEL: 25 NG/ML Cross-reactivity has been reported with dextromethorphan. Urinalysis 01-Sep-2017 08:51:00 ResultValue Color, Urine YELLOW Reference Range: STRAW,YELLOW Appearance, Urine CLEAR Specific Greenleaf, Urine 1.009 pH, Urine 5.0 Protein, Urine NEGATIVE Glucose, Urine NEGATIVE Blood, Urine NEGATIVE Ketones, Urine NEGATIVE Bilirubin, Urine NEGATIVE Urobilinogen, Urine <2.0 Nitrite, Urine NEGATIVE Leukocyte Esterase, Urine NEGATIVE Diagnostic Imaging Results Review: Radiology Results: ? Results Impression: 1. New widening of the superior mediastinum, which may be secondary to rotation. Lateral radiograph could be obtained for further evaluation. 2. No focal consolidation. Xray Chest 1 View [Sep 01 2017 9:19AM] Diagnoses/Visit Problems: ? Drug overdose, multiple drugs: DISCHARGE DISPOSITION: ? Disposition: admitted ? Disposition: ICU CONDITION ON DISPO: ? Condition on Dispositionstable MEDICATION RECONCILIATION/DISCHARGE MEDS: * Outpatient Medication Status not yet specified Attestation: CRITICAL CARE: ? Is This a Critically Ill Patientno Co-Sign/Attestation: Comments/ Additional Findings: see resident h and p and ed course--poison control center consulted--with musculoskeletal complaints and hyper-automacity noted, i'm still concerned for serotonin syndrome--pt did well with ed treatment and monitorization Electronic Signatures: Maxine Combs (Resident)) (Signed 01-Sep-2017 19:49) Authored: Time Seen / ED Notes, Triage Vital Signs, History of Present Illness, Patient History, History Attestation, Lab Results Review, Diagnostic Imaging Results Review, ED Disposition (REQUIRED), Attestation Radhames Jane) (Signed 02-Sep-2017 14:34) Authored: Attestation Co-Signer: Time Seen / ED Notes, Lab Results Review, Diagnostic Imaging Results Review, ED Disposition (REQUIRED), Attestation Last Updated: 02-Sep-2017 14:34 by Radhames Jane) References: 1. Data Referenced From Triage - ED 09/01/2017 08:07 AM TRIAGE - ED Observed: 09/01/2017 Status: UNK Source: DRIVER 8:07 AM HOSPITALS REPOSITORY Pain: Pain Rating (0-10): Rest10 Chart Review: CHIEF COMPLAINT ZAINA DOLL is a Male patient with a chief complaint of overdose. Other Complaints: pt released from detox yesterday and states he kept taking his meds at home to get rid of his symptoms from the withdrawl unsure of how many pills he took denies si Triage Date/Time: 01-Sep-2017 08:07 Pain Rating (0-10): Rest: 10 Pain location: all over Vital Signs: Temperature: 96.9F ( 36.1C) taken forehead Blood Pressure: 165/94 Mean: Heart Rate: 129 Respiratory Rate: 24 Pulse Oximetry: 99% on room air, no respiratory support. Height: 6 feet 3.00 inches. 190.5 CM Weight: 180.0 pounds. Calculated 81.6 kg. (stated) Calculated BMI (kg/m2): 22.485 Calculated BSA (m2) 2.08 Cough lasting greater than 3 weeks: no Travel outside of [place]: no Allergies: yes Patient has suicidal thoughts: no Patient has homicidal thoughts: no GEOVANNA: 2 Symptoms Are POSITIVE For: agitated, diaphoresis and shivering. Symptoms Are Negative For: confusion, dyspnea, headache, loss of consciousness, numbness, seizure and vomiting. PAIN Pain Scale Used: ALLI Past Medical History: ? Past Medical History Reviewedyes Electronic Signatures: Brandin Rogers (SUSANA) (Signed 01-Sep-2017 08:09) Authored: Triage, Past Medical History Last Updated: 01-Sep-2017 08:09 by Brandin Rogers (SUSANA) DISCHARGE SUMMARY Observed: 08/31/2017 Status: COMPLETED Source: DRIVER 5:41 PM HOSPITALS REPOSITORY Send Summary: Discharge Summary Providers: Provider RoleProvider Name ? ReferringLena Fox ? AttendingMaliha Hastings ? Jose R Dowling Note Recipients: Jose R Ramos MD - [id number] [] Discharge: Summary: Admission Date: .28-Aug-2017 09:10:00 Discharge Date: 31-Aug-2017 Attending Physician at Discharge: Khalid, Maliha Admission Reason: alcohol withdrawal(1) Final Discharge Diagnoses: Alcohol withdrawl Procedures: None Condition at Discharge: Satisfactory Disposition at Discharge: .Home Vital Signs: T PRBPSpO2 Value36.81999473/9398% Date/Time08/31 11: 11: 11: 11: 11:28 Range(36.4C - 36.6C ) (74 - 128 ) (18 - 22 ) (119 - 146 )/ (80 - 93 ) (93% - 98% ) Hospital Course: Patient is a 37-year-old male with past medical history of schizoaffective disorder, polysubstance abuse (alcohol use, cocaine, cannabis, and smoking) who presented to the hospital with alcohol withdrawal symptoms as he was trying to cut down on his alcohol drinking. On arrival to the ED, vital signs showed heart rate of 124, BP 142/89. Labs were obtained and showed mild elevation in alkaline phosphatase 171, alcohol level 248. U tox was positive for cannabis and negative for cocaine. His initial status: The ED was 13 and went down to 9 with IV Ativan. Patient was admitted to the medicine service for further management of his alcohol withdrawal. Patient was started on CIWA protocol with IV ativan first. MV, thiamine and folic acid continued. IV ativan was switched to PO. Patient's withdrawl score improved, on the day of discharge his score for <4 for. CIWA was d/ebony Pt already had chem dependency resources from last admission. He was advised to follow up with his PCP. Patient discharged in stable condition. Discharge Information: and Continuing Care: Discharge Instructions: Activity: activity as tolerated. May shower.. May return to school/work. May drive.. Nutrition/Diet: regular Diet Consistency/Texture: regular / thin Follow Up Appointments: Follow-Up Appointment 01: Physician/Dept/Service: Dr. Jose R Ramos - Primary Care Scheduled Date/Time: 06-Sep-2017 12:30 Location: [address] [place] [address] [address], [place] [address] Discharge Medications: Home Medication Multiple Vitamins with Minerals oral tablet - 1 tab(s) orally once a day folic acid 1 mg oral tablet - 1 tab(s) orally once a day thiamine 100 mg oral tablet - 1 tab(s) orally once a day Geodon 40 mg oral capsule - 1 cap(s) orally 2 times a day gabapentin 400 mg oral capsule - 2 cap(s) orally 3 times a day busPIRone 15 mg oral tablet - 1 tab(s) orally every 8 hours pantoprazole 40 mg oral delayed release tablet - 1 tab(s) orally 2 times a day PRN Medication Lab Results - Pending: None Radiology Results - Pending: None Electronic Signatures: Maliha Hastings) (Signed 31-Aug-2017 17:48) Authored: Send Summary, Summary Content, Ongoing Care, Signature/Cosignature/Attestation Last Updated: 31-Aug-2017 17:48 by Maliha Hastings) References: 1. Data Referenced From History and Physical 08/28/2017 03:18 PM DISCHARGE PROFILE2 Observed: 08/31/2017 Status: UNK Source: DRIVER 1:13 PM HOSPITALS REPOSITORY Discharge Orders: Anticipated Discharge Date: ? Anticipated Discharge [id number] Problem List: Additional Dx: ? Alcohol use disorder, moderate, dependence: Catalog Name: Alcohol dependence, uncomplicated Prelim Disch Dx: ? Alcohol withdrawal: Catalog Name: Alcohol dependence with withdrawal, unspecified ? S/P alcohol detoxification: Catalog Name: Encounter for follow-up examination after completed treatment for conditions other than malignant neoplasm Hospital Providers: Provider RoleProvider Name ? Jose R Dowling ? AttendingMaliha Hastings DNAR: ? DNAR Statusnone Activity: activity as tolerated. May shower. May return to school/work Instructions: May drive. Diet: ? Dietregular ? Diet Consistency/Textureregular / thin Call Provider If (Homegoing Patients): Any new concerning symptoms. Provider FINAL REVIEW of Orders: Final Review: ? Final Review of Medication Reconciliation and Orders Completedby Physician ? Reviewing ProviderMaliha Hastings MD at 31-Aug-2017 13:17:00 Appointments: Follow-Up Appointment 01: ? Physician/Dept/ServiceDr. Jose R Ramos - Primary Care ? Scheduled Date/[id number] 12:30 ? [address] [facility] [address], [place] [address] ? Phone [phone] ? CommentsPlease arrive 10-15 minutes early, discharge summary, bring photo ID, current list of medications & dosages, insurance cards and any copay that may apply. If unable to keep this appointment, please call to cancel at least 24 hrs prior to appointment. Electronic Signatures: Lefty Booth (PT ACC REP) (Signed 31-Aug-2017 14:52) Authored: Appointments Maliha Hastings) (Signed 31-Aug-2017 13:17) Authored: Discharge Orders, Provider FINAL REVIEW of Orders, Gold Form - Hay Stacker Summary Last Updated: 31-Aug-2017 14:52 by Lefty Booth (PT ACC REP) DISCHARGE PLANNING Observed: 08/30/2017 Status: UNK Source: UNIVERSITY NOTE 3:06 PM HOSPITALS REPOSITORY Patient Learning: ? Factors that Impact Ability to Learnnone(1) Other Factors: ? Functional Screen: In the recent/past 2-4 weeks, patient or family have noticedno issues that require a rehabilitation consult at this time(2) Discharge Planning: Discharge Plannin, 08/30/17: Caustic Room Attendant Note: The patient is a 37y/o male who is from [address] [place] [address]. His friend is his primary support. [facility] The patient does not have any anglican, cultural, or dietary concerns. He is not active with any home care agency currently. Face sheet demographics verified, which is his friend's home address. Per the patient he has his mails delivered there. The patient is independent with ambulation and with ADL. He does not use any DME for mobility. The patient has insurance. He does not have any financial concerns. His pharmacy is [facility] pharmacy in [place], [place]. He will need a bus ticket on discharge or a friend will get him. The patient's primary care doctor is Jose R Alonzo. He is not on hemodialysis. The patient is not diabetic. He is not on home oxygen or C-PAP machine. The patient will return home with no home care needs. Josue Gonzalez [facility] Caustic Room Attendant, [id number]. Electronic Signatures: Josue Gonzalez (ADV CLIN N) (Signed 30-Aug-2017 15:14) Authored: Discharge Planning Note Last Updated: 30-Aug-2017 15:14 by Josue Gonzalez (ADV CLIN N) References: 1. Data Referenced From 5. Education 08/28/2017 02:47 PM 2. Data Referenced From Admission Risk Screen - Adult 08/28/2017 02:47 PM DAILY PROGRESS Observed: 08/30/2017 Status: COMPLETED Source: UNIVERSITY NOTE-MEDICINE 1:49 PM HOSPITALS REPOSITORY Service: Medicine Subjective Data: ZAINA DOLL is a 37 year old Male who is Hospital Day # 3. Additional Information: No acute events overnight. VS stable but CIWA score high, better this morning. Pt reports that his night was restless but now feels better Objective Data: Objective Information: T PRBPSpO2 Value36.10702038/8198% Date/Time08/30 11: 11: 11: 11: 11:40 Range(36.1C - 36.8C ) (57 - 116 ) (18 - 20 ) (118 - 137 )/ (67 - 94 ) (96% - 99% ) Pain with Activity reported at 08/30 3:30: 4 Pain at Rest reported at 08/30 9:26: 0 Physical Exam: Vitals, reviewed General: in no acute distress, awake and alert HEENT: head atraumatic, normocephalic Eyes: Sclerae Anicteric. EOMI Cardiovascular: regular rate, Normal S1S2, No gallops or murmurs Respiratory: clear to auscultation bilaterally. No wheezing or rhonchi Abdomen: soft nontender nondistended, BS+ Extremities: no cyanosis. No edema Neurology: Awake and alert, Oriented x3, Medication: Medications: Continuous Medications No continuous medications are active Scheduled Medications 1. busPIRone: 15 mg Oral Every 8 Hours 2. Folic Acid: 1 mg Oral Daily 3. Gabapentin: 800 mg Oral 3 Times a Day 4. Multivitamin with Minerals: 1 tablet(s) Oral Daily 5. Pantoprazole: 40 mg Oral Daily 6. Thiamine: 200 mg Oral Daily 7. Ziprasidone: 40 mg Oral 2 Times a Day PRN Medications 1. Acetaminophen: 650 mg Oral Every 4 Hours 2. LORazepam Injectable: 0.5 mg IntraVenous Push Every 2 Hours 3. LORazepam Injectable: 1 mg IntraVenous Push Every 2 Hours 4. LORazepam Injectable: 2 mg IntraVenous Push Every 2 Hours Recent Lab Results: Results: I have reviewed these laboratory results: Complete Blood Count 30-Aug-2017 08:13:00 ResultValue White Blood Cell Count 6.2 Nucleated Erythrocyte Count 0.0 Red Blood Cell Count 4.34 L HGB 13.9 HCT 41.6 MCV 96 MCHC 33.4 PLT 150 RDW-CV 13.4 Comprehensive Metabolic Panel 30-Aug-2017 08:13:00 ResultValue Glucose, Serum 88 NA 139 K 3.8 CL 105 Bicarbonate, Serum 26 Anion Gap, Serum 12 BUN 15 CREAT 0.54 GFR-Non >60 GFR- >60 Calcium, Serum 9.3 ALB 3.6 ALKP 128 H T Pro 5.8 L T Bili 0.4 Alanine Aminotransferase, Serum 33 Aspartate Transaminase, Serum 24 Assessment and Plan: Assessment: 37-year-old male with past medical history of schizoaffective disorder, polysubstance abuse (alcohol use, cocaine, cannabis, and smoking) who presented to the hospital with alcohol withdrawal symptoms as he was trying to cut down on his alcohol drinking. On arrival to the ED, vital signs showed heart rate of 124, BP 142/89. Labs were obtained and showed mild elevation in alkaline phosphatase 171, alcohol level 248. U tox was positive for cannabis and negative for cocaine. His initial status: The ED was 13 and went down to 9 with IV Ativan. Patient was admitted to the medicine service for further management of his alcohol withdrawal. # alcohol withdrawal # alcohol use disorder Recurrent issue for the pt, similar admission last month, seen by chem dep at that time. - CIWA with IV ativan - c/w multivitamin, folate and thiamine # Peripheral neuropathy - c/w home gabapentin 800 mg three times a day # schizoaffective disorder - c/w home meds of buspirone 15 three times a day (per the pt, this was recently increased from twice a day to three times a day) and ziprasidone 40 mg twice a day - c/w home PPI, decrease from twice a day to once a day Hosp B Service: 8am- 8pm [id number] 8pm- 8am [id number] Lena Cuevas MD Internal Medicine Hospitalist Pager: [phone] Electronic Signatures: Lena Fox) (Signed 30-Aug-2017 13:52) Authored: Service, Subjective Data, Objective Data, Assessment and Plan, Signature/Cosignature/Attestation Last Updated: 30-Aug-2017 13:52 by Lena Fox) CBC Collected: 08/30/2017 Status: F Source: DRIVER 8:13 AM HOSPITALS REPOSITORY TYPE CODE TESTS RESULT OUT OF REFERENCE UNITS RANGE LAB WBCR(LOINC 4.4 - 11.3 x10E9/L ) WBC 6.2 LAB NRBC(LOINC 0.0-0.0 /100 WBC ) NUCLEATED RBC 0.0 LAB RBCCT(LOIN 4.50 - 5.90 x10E12/L C) Low RBC 4.34 LAB HGB(LOINC) 13.5 - 17.5 g/dL HGB 13.9 LAB HCT(LOINC) 41.0 - 52.0 % HCT 41.6 LAB MCV(LOINC) 80 - 100 fL MCV 96 LAB MCHC2(LOIN 32.0 - 36.0 g/dL C) MCHC 33.4 LAB PLTCT(LOIN 150 - 450 x10E9/L C) PLT 150 LAB RDWCV(LOIN 11.5 - 14.5 % C) RDW-CV 13.4 Performed By: #### CBC #### [facility] [address] [facility] [place] [address] COMPREHENSIVE PANEL Collected: 08/30/2017 Status: F Source: UNIVERSITY 8:13 AM HOSPITALS REPOSITORY TYPE CODE TESTS RESULT OUT OF REFERENCE UNITS RANGE LAB GLU(LOINC) 74 - 99 mg/dL GLUCOSE 88 LAB SOD(LOINC) 136 - 145 mmol/L SODIUM 139 LAB K(LOINC) 3.5 - 5.3 mmol/L POTASSIUM 3.8 LAB CHLOR(LOIN 98 - 107 mmol/L C) CHLORIDE 105 LAB BIC(LOINC) 21 - 32 mmol/L BICARBONATE 26 LAB ANGAP(LOIN 10 - 20 mmol/L C) ANION GAP 12 LAB UREA(LOINC 6 - 23 mg/dL ) UREA NITROGEN 15 LAB CREA(LOINC 0.50 - 1.30 mg/dL ) CREATININE 0.54 LAB GFRFN(LOIN >60 mL/min/1.7 C) 3m2 GFR-NON AM. >60 LAB GFRAA(LOIN >60 mL/min/1.7 C) 3m2 GFR- AM. >60 Result Comment: CALCULATIONS OF ESTIMATED GFR ARE PERFORMED USING THE MDRD STUDY EQUATION FOR THE IDMS-TRACEABLE CREATININE METHODS. CLIN CHEM 2007;53:766-72 LAB CA(LOINC) 8.6 - 10.6 mg/dL CALCIUM 9.3 LAB ALB(LOINC) 3.4 - 5.0 g/dL ALBUMIN 3.6 LAB AP(LOINC) 33 - 120 U/L ALKALINE High PHOSPHATASE 128 LAB TP(LOINC) 6.4 - 8.2 g/dL TOTAL PROTEIN Low 5.8 LAB AST(LOINC) 9 - 39 U/L AST 24 LAB TBILI(LOINC) 0.0 - 1.2 mg/dL BILIRUBIN,TOTAL 0.4 LAB ALT(LOINC) 10 - 52 U/L ALT 33 Result Comment: Patients treated with Sulfasalazine may generate falsely decreased results for ALT. Performed By: #### CMP #### [facility] [address] [place] [address] DAILY PROGRESS Observed: 08/29/2017 Status: COMPLETED Source: UNIVERSITY NOTE-MEDICINE 12:45 PM HOSPITALS REPOSITORY Service: Medicine Subjective Data: ZAINA DOLL is a 37 year old Male who is Hospital Day # 2. Additional Information: No acute events overnight. VS stable Pt appears more awake and alert today Eating well Still with high CIWA score around 9 Objective Data: Objective Information: T PRBPSpO2 [id number]/[id number]% Date/Time08/29 8: 8: 8: 8: 8:08 Range(36C - 37.2C ) (60 - 98 ) (16 - 18 ) (109 - 133 )/ (68 - 84 ) (95% - 98% ) Highest temp of 37.2 C was recorded at 08/28 20:00 Pain with Activity reported at 08/29 5:15: 5 Pain at Rest reported at 08/29 5:15: 5 Physical Exam: Vitals, reviewed General: in no acute distress, awake and alert HEENT: head atraumatic, normocephalic Eyes: Sclerae Anicteric. EOMI Cardiovascular: regular rate, Normal S1S2, No murmurs Respiratory: clear to auscultation bilaterally. No wheezing or rhonchi Abdomen: soft nontender nondistended, BS+ Extremities: no cyanosis. No edema Neurology: Awake and alert, Oriented x3 Medication: Medications: Continuous Medications No continuous medications are active Scheduled Medications 1. busPIRone: 15 mg Oral Every 12 Hours 2. Folic Acid: 1 mg Oral Daily 3. Gabapentin: 800 mg Oral 3 Times a Day 4. Multivitamin with Minerals: 1 tablet(s) Oral Daily 5. Pantoprazole: 40 mg Oral Daily 6. Thiamine: 200 mg Oral Daily 7. Ziprasidone: 40 mg Oral 2 Times a Day PRN Medications 1. Acetaminophen: 650 mg Oral Every 4 Hours 2. LORazepam Injectable: 0.5 mg IntraVenous Push Every 2 Hours 3. LORazepam Injectable: 1 mg IntraVenous Push Every 2 Hours 4. LORazepam Injectable: 2 mg IntraVenous Push Every 2 Hours Recent Lab Results: Results: I have reviewed these laboratory results: Complete Blood Count 28-Aug-2017 10:44:00 ResultValue White Blood Cell Count 6.6 Nucleated Erythrocyte Count 0.0 Red Blood Cell Count 4.07 L HGB 13.1 L HCT 37.0 L MCV 91 MCHC 35.4 PLT 183 RDW-CV 13.4 Comprehensive Metabolic Panel 28-Aug-2017 10:44:00 ResultValue Glucose, Serum 88 NA 142 K 3.7 CL 104 Bicarbonate, Serum 27 Anion Gap, Serum 15 BUN 10 CREAT 0.58 GFR-Non >60 GFR- >60 Calcium, Serum 8.9 ALB 4.0 ALKP 171 H T Pro 6.3 L T Bili 0.3 Alanine Aminotransferase, Serum 45 Aspartate Transaminase, Serum 37 Magnesium, Serum 28-Aug-2017 10:44:00 ResultValue Magnesium, Serum 2.08 Ethanol Level 28-Aug-2017 10:44:00 ResultValue Ethanol Level 248 A Phosphorus, Serum 28-Aug-2017 10:44:00 ResultValue Phosphorus, Serum 3.5 Lipase, Serum 28-Aug-2017 10:44:00 ResultValue Lipase, Serum 30 Drug Screen, Urine 28-Aug-2017 09:38:00 ResultValue Comments. SEE BELOW Drug screen results are presumptive and should not be used to assess compliance with prescribed medication. Contact the performing [facility] laboratory to add-on definitive confirmatory testing if clinically indicated. . Toxicology scre Amphetamine Screen, Urine PRESUMPTIVE NEGATIVE CUTOFF LEVEL: 500 NG/ML Cross-reactivity has been reported with high concentrations of the following drugs: buproprion, chloroquine, chlorpromazine, ephedrine, mephentermine, fenfluramine, phentermine, phenylpropanolamine Barbiturate Screen, Urine PRESUMPTIVE NEGATIVE PRESUMPTIVE NEGATIVE CUTOFF LEVEL: 200 NG/ML Benzodiazepine Screen, Urine PRESUMPTIVE NEGATIVE PRESUMPTIVE NEGATIVE CUTOFF LEVEL: 200 NG/ML Cannabinoid Screen, Urine PRESUMPTIVE POSITIVE PRESUMPTIVE POSITIVE CUTOFF LEVEL: 50 NG/ML A Cocaine Metabolite Screen, Urine PRESUMPTIVE NEGATIVE PRESUMPTIVE NEGATIVE CUTOFF LEVEL: 150 NG/ML Methadone Screen, Urine PRESUMPTIVE NEGATIVE CUTOFF LEVEL: 150 NG/ML The metabolite C-zojjn-hguoklfzvxtoho (LAAM) is not detected by this method in concentrations that would be found in the urine of patients on LAAM therapy. Opiate Screen, Urine PRESUMPTIVE NEGATIVE CUTOFF LEVEL: 300 NG/ML The opiate screen does not detect fentanyl, meperidine, or tramadol. Oxycodone is not consistently detected (refer to Oxycodone Screen, Urine result). Oxycodone Screen, Urine (item) PRESUMPTIVE NEGATIVE CUTOFF LEVEL: 100 NG/ML This test will accurately detect both oxycodone and oxymorphone. PCP Screen, Urine PRESUMPTIVE NEGATIVE CUTOFF LEVEL: 25 NG/ML Cross-reactivity has been reported with dextromethorphan. Assessment and Plan: Assessment: 37-year-old male with past medical history of schizoaffective disorder, polysubstance abuse (alcohol use, cocaine, cannabis, and smoking) who presented to the hospital with alcohol withdrawal symptoms as he was trying to cut down on his alcohol drinking. On arrival to the ED, vital signs showed heart rate of 124, BP 142/89. Labs were obtained and showed mild elevation in alkaline phosphatase 171, alcohol level 248. U tox was positive for cannabis and negative for cocaine. His initial status: The ED was 13 and went down to 9 with IV Ativan. Patient was admitted to the medicine service for further management of his alcohol withdrawal. # alcohol withdrawal # alcohol use disorder Recurrent issue for the pt, similar admission last month, seen by chem dep at that time. - CIWA with IV ativan - c/w multivitamin, folate and thiamine # Peripheral neuropathy - c/w home gabapentin 800 mg three times a day # schizoaffective disorder - c/w home meds of buspirone 15 twice a day and ziprasidone 40 mg twice a day - c/w home PPI, decrease from twice a day to once a day Hosp B Service: 8am- 8pm [id number] 8pm- 8am [id number] Lena Cuevas MD Internal Medicine Hospitalist Pager: [phone] Electronic Signatures: Lena Fox) (Signed 29-Aug-2017 12:54) Authored: Service, Subjective Data, Objective Data, Assessment and Plan, Signature/Cosignature/Attestation Last Updated: 29-Aug-2017 12:54 by Lena Fox) HISTORY AND PHYSICAL Observed: 08/28/2017 Status: COMPLETED Source: DRIVER 3:18 PM HOSPITALS REPOSITORY History of Present Illness: Admission Reason: alcohol withdrawal HPI: 37-year-old male with past medical history of schizoaffective disorder, polysubstance abuse (alcohol use, cocaine, cannabis, and smoking) who presented to the hospital with alcohol withdrawal symptoms as he was trying to cut down on his alcohol drinking. Patient was admitted to the hospital last month for similar problem. When I saw the patient in the ED, he was a little bit drowsy as he got 2 doses of IV Ativan. He was able to answer questions though but he wasn't clear about the timeline. I informed him that he was discharged from the hospital July 24 and asking when the people back to drinking. Patient does not remember. He says he has been drinking for a couple of weeks. His been drinking a fifth of vodka daily. Patient has been dealing with alcohol problem for several years. He reports he has been sober for 9 months this past winter. His girlfriend who was in the room confirmed that as well. He reports that in the past he did have severe withdrawal symptoms of severe tremor. He was cutting down on alcohol, and he noted that he was having tremor. He did not think he could go through detox by himself at home and therefore presented to the hospital. Patient presented to the ED with the above symptoms. No arrival to the ED, vital signs showed heart rate of 124, BP 142/89. Labs were obtained and showed mild elevation in alkaline phosphatase 171, alcohol level 248. U tox was positive for cannabis and negative for cocaine. His initial status: The ED was 13 and went down to 9 with IV Ativan. Patient was admitted to the medicine service for further management of his alcohol withdrawal. ROS: A complete review of systems was performed and is otherwise negative except as noted in the HPI Home Meds: See med rec note, confirmed with the pt Allergies: NKDA PMH as above PSH: no recent surgeries FH: reviewed, not pertinent to current presentation SH: Smokes 1 PPD for several years. Heavy alcohol use as above. Previous cocaine use in the past, last use a month ago, current U tox is negative for cocaine. Allergies: ? morphine: Hives/Urticaria ? opiates: Unknown ? narcotic analgesics: Unknown Objective: Objective Information: T PRBPSpO2 [id number]% Date/Time08/28 14: 14: 14: 14: 14:04 Range(35.6C - 36C ) (98 - 124 ) (17 - 18 ) (109 - 142 )/ (67 - 89 ) (96% - 98% ) Physical Exam: Vitals, reviewed General: in no acute distress, drowsy but accusable HEENT: head atraumatic, normocephalic Eyes: Sclerae Anicteric. EOMI Cardiovascular: regular rate, Normal S1S2, No murmurs Respiratory: clear to auscultation bilaterally. No wheezing or rhonchi Abdomen: soft nondistended, BS+. mild TTP in the RLQ Extremities: no cyanosis. No edema Neurology: Awake and alert, Oriented x2-3 (did not know the month) Medications: Medications: Continuous Medications No continuous medications are active Scheduled Medications 1. busPIRone: 15 mg Oral Every 12 Hours 2. Folic Acid: 1 mg Oral Daily 3. Gabapentin: 800 mg Oral 3 Times a Day 4. Multivitamin with Minerals: 1 tablet(s) Oral Daily 5. Pantoprazole: 40 mg Oral Daily 6. Thiamine: 200 mg Oral Daily PRN Medications 1. LORazepam Injectable: 0.5 mg IntraVenous Push Every 2 Hours 2. LORazepam Injectable: 1 mg IntraVenous Push Every 2 Hours 3. LORazepam Injectable: 2 mg IntraVenous Push Every 2 Hours Recent Lab Results: Results: I have reviewed these laboratory results: Complete Blood Count 28-Aug-2017 10:44:00 ResultValue White Blood Cell Count 6.6 Nucleated Erythrocyte Count 0.0 Red Blood Cell Count 4.07 L HGB 13.1 L HCT 37.0 L MCV 91 MCHC 35.4 PLT 183 RDW-CV 13.4 Comprehensive Metabolic Panel 28-Aug-2017 10:44:00 ResultValue Glucose, Serum 88 NA 142 K 3.7 CL 104 Bicarbonate, Serum 27 Anion Gap, Serum 15 BUN 10 CREAT 0.58 GFR-Non >60 GFR- >60 Calcium, Serum 8.9 ALB 4.0 ALKP 171 H T Pro 6.3 L T Bili 0.3 Alanine Aminotransferase, Serum 45 Aspartate Transaminase, Serum 37 Magnesium, Serum 28-Aug-2017 10:44:00 ResultValue Magnesium, Serum 2.08 Ethanol Level 28-Aug-2017 10:44:00 ResultValue Ethanol Level 248 A Phosphorus, Serum 28-Aug-2017 10:44:00 ResultValue Phosphorus, Serum 3.5 Lipase, Serum 28-Aug-2017 10:44:00 ResultValue Lipase, Serum 30 Drug Screen, Urine 28-Aug-2017 09:38:00 ResultValue Comments. SEE BELOW Drug screen results are presumptive and should not be used to assess compliance with prescribed medication. Contact the performing [facility] laboratory to add-on definitive confirmatory testing if clinically indicated. . Toxicology scre Amphetamine Screen, Urine PRESUMPTIVE NEGATIVE CUTOFF LEVEL: 500 NG/ML Cross-reactivity has been reported with high concentrations of the following drugs: buproprion, chloroquine, chlorpromazine, ephedrine, mephentermine, fenfluramine, phentermine, phenylpropanolamine Barbiturate Screen, Urine PRESUMPTIVE NEGATIVE PRESUMPTIVE NEGATIVE CUTOFF LEVEL: 200 NG/ML Benzodiazepine Screen, Urine PRESUMPTIVE NEGATIVE PRESUMPTIVE NEGATIVE CUTOFF LEVEL: 200 NG/ML Cannabinoid Screen, Urine PRESUMPTIVE POSITIVE PRESUMPTIVE POSITIVE CUTOFF LEVEL: 50 NG/ML A Cocaine Metabolite Screen, Urine PRESUMPTIVE NEGATIVE PRESUMPTIVE NEGATIVE CUTOFF LEVEL: 150 NG/ML Methadone Screen, Urine PRESUMPTIVE NEGATIVE CUTOFF LEVEL: 150 NG/ML The metabolite H-amyer-ivodxtlsiznfag (LAAM) is not detected by this method in concentrations that would be found in the urine of patients on LAAM therapy. Opiate Screen, Urine PRESUMPTIVE NEGATIVE CUTOFF LEVEL: 300 NG/ML The opiate screen does not detect fentanyl, meperidine, or tramadol. Oxycodone is not consistently detected (refer to Oxycodone Screen, Urine result). Oxycodone Screen, Urine (item) PRESUMPTIVE NEGATIVE CUTOFF LEVEL: 100 NG/ML This test will accurately detect both oxycodone and oxymorphone. PCP Screen, Urine PRESUMPTIVE NEGATIVE CUTOFF LEVEL: 25 NG/ML Cross-reactivity has been reported with dextromethorphan. Assessment and Plan: Assessment: 37-year-old male with past medical history of schizoaffective disorder, polysubstance abuse (alcohol use, cocaine, cannabis, and smoking) who presented to the hospital with alcohol withdrawal symptoms as he was trying to cut down on his alcohol drinking. On arrival to the ED, vital signs showed heart rate of 124, BP 142/89. Labs were obtained and showed mild elevation in alkaline phosphatase 171, alcohol level 248. U tox was positive for cannabis and negative for cocaine. His initial status: The ED was 13 and went down to 9 with IV Ativan. Patient was admitted to the medicine service for further management of his alcohol withdrawal. # alcohol withdrawal # alcohol use disorder Recurrent issue for the pt, similar admission last month, seen by chem dep at that time. - CIWA with IV ativan - c/w multivitamin, folate and thiamine # Peripheral neuropathy - c/w home gabapentin 800 mg three times a day # schizoaffective disorder - c/w home meds of buspirone 15 twice a day and ziprasidone 40 mg twice a day - c/w home PPI, decrease from twice a day to once a day Hosp B Service: 8am- 8pm [id number] 8pm- 8am [id number] Lena Cuevas MD Internal Medicine Hospitalist Pager: [phone] Signatures/Attestation/Certification: Attending Provider ? Inpatient Certification StatementI certify this patient?s need for inpatient care based on the above documentation including; the order to admit as inpatient, the anticipated length of stay, diagnosis, problem list and plan of care, and discharge plan. Electronic Signatures: Lena Fox) (Signed 28-Aug-2017 15:27) Authored: History of Present Illness, Comorbidities, Allergies, Objective, Assessment and Plan, Signatures/Attestation/Certification Last Updated: 28-Aug-2017 15:27 by Lena Fox) ADMISSION RISK SCREEN Observed: 08/28/2017 Status: UNK Source: [facility] 2:47 PM HOSPITALS REPOSITORY Allergies: Allergies: ? morphine: Hives/Urticaria ? opiates: Unknown ? narcotic analgesics: Unknown Patient Verification: ? New W ID Band Applied in my Departmentyes ? Patient Identity Verified Bypatient ? ID Band FULL Name, include Middle, spelling matches patient's ID used for verificationyes ? ID Band Matches Patient ID used for Verficationyes ? ID Band MRN Matches EMR MRNyes Advance Directive: ? Advance Directive Medicalno ? Advance Directive Information Givenpatient/family declined ? Advance Directive Mental Healthnot applicable Falls Screen: Type of Assessmentadmission Moderate Risk Factorsnursing judgment (specify) High Risk Factorsagitation/confusion Risk for Injury Associated with Fallnone Fall Risk Conclusionhigh falls risk with low risk for associated injury [place] Safety InterventionsWDL *orient to call system *instruct to call for assistance before getting out of bed *non-slip footwear when patient is out of bed *call cardona in reach *personal items and telephone in reach *physically safe environment (no spills or clutter) *bed in lowest position with wheels locked *appropriate side rails in place *room/bathroom lighting operational, light cord in reach *appropriate signage on door Fall and Injury Risk Interventionsbed alarm refused, educate pt/family, monitor med side effects, consult Pharmacy Family Violence Screen: ? Are you or have you been threatened or abused physically, emotionally, or sexually by anyone?no ? Has anyone ever threatened to hurt your family or your pets?no ? Does anyone try to keep you from having/contacting other friends or doing things outside your home?no ? Do you feel UNSAFE going back to the place where you are living?no ? Do you feel anyone has exploited or taken advantage of you financially or of your personal property?no ? Clinical assessment: Are there any apparent signs of injuries/behaviors that could be related to abuse/neglectno ? Social Service Consult for abuse/neglect needed this visit?no Functional screen: ? Functional Screen: In the recent/past 2-4 weeks, patient or family have noticedno issues that require a rehabilitation consult at this time Learning Assessment (Patient): ? Patient is Able to be Assessed for Learningyes ? Factors Influencing Readiness to Learnmotivation to learn ? Factors that Impact Ability to Learnnone ? Devices/Methods Used to Communicatenone ? Learning Preferencesindividual instruction; skill demonstration; verbal instruction; written material ? Cultural Considerationsnone ? Developmental Considerationsnone ? Orthodox Considerationsnone Learning Assessment (Other Learner): ? Other learner availableno Suicide/Depression Screen: ? During the past month, have you often been bothered by feeling down, depressed or hopeless?no ? During the past month, have you often had little interest or pleasure in doing things?no ? Have you had any thoughts of harming yourself?no ? Have you had any thoughts of harming anyone else?no Adult Nutrition Screen: ? Have you recently lost weight without tryingno ? Have you been eating poorly because of a decreased appetiteno ? MST Score0 ? RiskMST = 0 or 1 Not at risk. Eating well with little or no weight loss ? Nutrition Consult needed this visit?no ? Can Patient Participate in Room Service?yes ? Patient requires Paper Dishes/Plastic Utensilsno Pain Screen: ? Pain Scalenumerical 0-10 ? Pain Scale Educationteaching provided ? Current Pain Level7 = Severe ? Acceptable Pain Level0 = None ? Expression of Pain (nonverbal)verbalization ? Chronic Painno Spiritual Screen: ? Are there any cultural, spiritual, anglican practices/values/needs that are important for us to know?no CAGE: Is this an injured patient at a Trauma Center ([facility]): no Vaccinations: Vaccination - Influenza Vaccination Screen: ? Is it flu season? (between and )No Vaccination - Pneumonia Vaccination Screen: ? Patient has received a previous pneumonia vaccine:yes Malik: Skin - Malik Scale: ? Malik: Sensory Perception (response to environment)(4) no impairment ? Malik: Moisture (degree skin exposed to moisture)(4) rarely moist ? Malik: Activity (ability to walk)(4) walks frequently ? Malik: Mobility (amount/control of body movement)(4) no limitation ? Malik: Nutrition (quality of food intake)(3) adequate ? Malik: Friction and Shear(2) potential problem ? Malik: Score21 Significant Indicatiors: Significant Indicators: Complete Pressure Injury: Pressure Injury Present on Admissionno Electronic Signatures: Heydi Hsu) (Signed 28-Aug-2017 14:55) Authored: Admission Risk Screens, Vaccinations, Malik, Pressure Injury Last Updated: 28-Aug-2017 14:55 by Heydi Hsu) MEASUREMENTS Observed: 08/28/2017 Status: UNK Source: DRIVER 2:46 PM HOSPITALS REPOSITORY Weight: ? Weight in kg78.4 kilogram(s) ? Weight Methodactual (measured) Height: ? Height in cm190.5 centimeter(s) ? Height Methodstated Sudanese Unit Translation (pounds, inches): Measurement Sudanese Unit Translations (Adult only): ? Weight in gqb670.842 pound(s) Electronic Signatures: Heydi Hsu) (Signed 28-Aug-2017 14:47) Authored: Weight, Height, Sudanese Unit Translation (pounds, inches) Last Updated: 28-Aug-2017 14:47 by Heydi Hsu) CBC Collected: 08/28/2017 Status: F Source: DRIVER 10:44 AM HOSPITALS REPOSITORY TYPE CODE TESTS RESULT OUT OF REFERENCE UNITS RANGE LAB WBCR(LOINC 4.4 - 11.3 x10E9/L ) WBC 6.6 LAB NRBC(LOINC 0.0-0.0 /100 WBC ) NUCLEATED RBC 0.0 LAB RBCCT(LOIN 4.50 - 5.90 x10E12/L C) Low RBC 4.07 LAB HGB(LOINC) 13.5 - 17.5 g/dL Low HGB 13.1 LAB HCT(LOINC) 41.0 - 52.0 % Low HCT 37.0 LAB MCV(LOINC) 80 - 100 fL MCV 91 LAB MCHC2(LOIN 32.0 - 36.0 g/dL C) MCHC 35.4 LAB PLTCT(LOIN 150 - 450 x10E9/L C) PLT 183 LAB RDWCV(LOIN 11.5 - 14.5 % C) RDW-CV 13.4 Performed By: #### CBC #### [facility] [address] [facility] [place] [address] ALCOHOL Collected: 08/28/2017 Status: F Source: DRIVER 10:44 AM [facility] REPOSITORY TYPE CODE TESTS RESULT OUT OF RANGE REFERENCE UNITS LAB ALC(LOINC) mg/dL Abnormal ALCOHOL 248 Result Comment: FOR MEDICAL USE ONLY. . REF VALUES <10 Performed By: #### ALC #### [facility] [address] [facility] [place] [address] LIPASE Collected: 08/28/2017 Status: F Source: DRIVER 10:44 [facility] REPOSITORY TYPE CODE TESTS RESULT OUT OF REFERENCE UNITS RANGE LAB LIPAS(LOINC 9 - 82 U/L ) LIPASE 30 Result Comment: Venipuncture immediately after or during the administration of Metamizole may lead to falsely low results. Testing should be performed immediately prior to Metamizole dosing. Performed By: #### LIPAS #### [facility] [address] [place] [id number] COMPREHENSIVE PANEL Collected: 08/28/2017 Status: F Source: DRIVER 10:44 [facility] REPOSITORY TYPE CODE TESTS RESULT OUT OF REFERENCE UNITS RANGE LAB GLU(LOINC) 74 - 99 mg/dL GLUCOSE 88 LAB SOD(LOINC) 136 - 145 mmol/L SODIUM 142 LAB K(LOINC) 3.5 - 5.3 mmol/L POTASSIUM 3.7 LAB CHLOR(LOIN 98 - 107 mmol/L C) CHLORIDE 104 LAB BIC(LOINC) 21 - 32 mmol/L BICARBONATE 27 LAB ANGAP(LOIN 10 - 20 mmol/L C) ANION GAP 15 LAB UREA(LOINC 6 - 23 mg/dL ) UREA NITROGEN 10 LAB CREA(LOINC 0.50 - 1.30 mg/dL ) CREATININE 0.58 LAB GFRFN(LOIN >60 mL/min/1.7 C) 3m2 GFR-NON AM. >60 LAB GFRAA(LOIN >60 mL/min/1.7 C) 3m2 GFR- AM. >60 Result Comment: CALCULATIONS OF ESTIMATED GFR ARE PERFORMED USING THE MDRD STUDY EQUATION FOR THE IDMS-TRACEABLE CREATININE METHODS. CLIN CHEM 2007;53:766-72 LAB CA(LOINC) 8.6 - 10.6 mg/dL CALCIUM 8.9 LAB ALB(LOINC) 3.4 - 5.0 g/dL ALBUMIN 4.0 LAB AP(LOINC) 33 - 120 U/L ALKALINE High PHOSPHATASE 171 LAB TP(LOINC) 6.4 - 8.2 g/dL TOTAL PROTEIN Low 6.3 LAB AST(LOINC) 9 - 39 U/L AST 37 LAB TBILI(LOINC) 0.0 - 1.2 mg/dL BILIRUBIN,TOTAL 0.3 LAB ALT(LOINC) 10 - 52 U/L ALT 45 Result Comment: Patients treated with Sulfasalazine may generate falsely decreased results for ALT. Performed By: #### CMP #### [facility] [address] [place] [id number] MAGNESIUM Collected: 08/28/2017 Status: F Source: DRIVER 10:44 AM HOSPITALS REPOSITORY TYPE CODE TESTS RESULT OUT OF REFERENCE UNITS RANGE LAB MG(LOINC) 1.60 - 2.40 mg/dL MAGNESIUM 2.08 Performed By: #### MG #### [facility] [address] [place] [address] PHOSPHORUS Collected: 08/28/2017 Status: F Source: DRIVER 10:44 AM HOSPITALS REPOSITORY TYPE CODE TESTS RESULT OUT OF REFERENCE UNITS RANGE LAB PHOS(LOINC 2.5 - 4.9 mg/dL ) PHOSPHORUS 3.5 Result Comment: The performance characteristics of phosphorus testing in heparinized plasma have been validated by the individual laboratory site where testing is performed. Testing on heparinized plasma is not approved by the FDA; however, such approval is not necessary. Performed By: #### PHOS #### [facility] [address] [facility] [place] [address] PROVIDER NOTE - ED Observed: 08/28/2017 Status: COMPLETED Source: DRIVER 9:47 AM HOSPITALS REPOSITORY Time Seen: ? Time [id number] 09:16 ED Notes: ? ED Notes HPI: Presenting for alcohol withdrawal. Says he has been trying to quit drinking. Has substantially cut back over the past week. Usually drinks ~1 L hard alcohol per day, now down to about 1/5 L alcohol per day. Over the past couple of days with palpitations, nausea, NBNB emesis, crampy abdominal pain, feeling shaky, diaphoresis, and like bugs are crawling all over him. Drank about 1/5 this AM to try getting symptoms to stop. No recent head injuries, headache, lightheadedness, chest pain, fever, dizziness, weakness, urinary symptoms, dyspnea, cough, weight loss. Says the medications he got last time are not helping. ROS: Complete ROS performed. Pertinent positives and negatives included in HPI. PMH: Per EMR. Reviewed. GERD, alcoholism, sciatica SH: Per EMR. Reviewed. MEDS: Per EMR. Reviewed. Gabapentin, buspirone. Physical Exam: General: Thin. Malnourished. Systemic tattoos. Skin: Warm. Intact. Diaphoretic. No systemic rashes or lesions. Eyes: Pupils equally round. Tracks physicians with eyes, crossing midline. Clear sclera. HENT: Atraumatic. Normo-cephalic. Mucosal membranes chapped. CV: No murmurs, rubs, or gallops appreciated. Warm extremities. No pedal edema. Tachycardia. Symmetric radial pulses. Respiratory: Mild tachypnea. Nonlabored breathing. Clear to auscultation bilaterally. GI: Soft. Non-tender. Non-distended. MSK: Symmetric muscle bulk. No joint swelling in the extremities. Neuro: Alert. Oriented x 3. Cranial nerves II - XII intact. NML UE strength. Psych: Hypervigilant. No SI / HI / AVH. Hospital Course / Medical Decision Making: Nurse's evaluation reviewed. Patient evaluated. Symptoms most s/o alcohol withdrawal. CIWA ordered along with vitamins, IVF, and labs. Labs reviewed and w/o significant findings. Blood alcohol 248, which in setting of withdrawal, is concerning. Urine drug screen with cannabinoid. CIWA initially 13 and following medications improved to 9. Will place in hospital for continued management of acute alcohol withdrawal. Multiple etiologies to patient's presentation were considered. During time under my care, the patient's presentation was most consistent with the ICD 10 codes listed under section Diagnoses/Visit problems. Disposition: telemetry Patient case was discussed with the attending ED provider, who also saw and evaluated the patient. Patient and/or patient small business sales representative counseled regarding contents of Hospital Course / Medical Decision Making as well as diagnosis and plan. All questions were answered. Triage Vital Signs: ? Triage Information Most recent Vital Sign Value Date Temp (F): 96.2 08-28-2017 09:13 Temp (C): 35.7 08-28-2017 09:13 Heart Rate (beats/min): 124 08-28-2017 09:13 Respirations (breaths/min): 18 08-28-2017 09:13 SpO2 (%): 96 08-28-2017 09:13 BP Systolic (mm Hg): 142 08-28-2017 09:13 BP Diastolic (mm Hg): 89 08-28-2017 09:13 History of Present Illness: This 37 year old Male presents with complaint(s) of Alcohol Withdrawal, last drink 0200(1). Allergy, Intolerance, Adverse Event: Allergies: ? morphine: Drug, Hives/Urticaria, Active ? opiates: Drug Category, Unknown, Active ? narcotic analgesics: Drug Category, Unknown, Active * Incomplete Medication History as of 05-Sep-2017 13:07 documented in Structured Notes HISTORY ATTESTATION: ? AttestationI have reviewed and confirmed nurse's/medic's notes for patient's medications, allergies, medical history, and surgical history CURRENT ORDERS/AFRICAN STUDIES PROFESSOR: ? Adult ED Bed Request, Patient Intended as: Inpatient Admitting Diagnosis: F10.239 Alcohol withdrawal syndrome;R00.0 Tachycardia;R00.2 Palpitations Level of Care: Telemetry Admitting Service: Medicine Physician Contact # [email or web address] Decision to Admit: 28-Aug-2017, Active, 28-Aug-2017, Standard ? diazePAM Injectable, (VALIUM) DOSE = 10 mg IntraVenous Push Every 2 Hours, PRN CIWA score greater than 6 or HR> 100 BPM, Discontinued, 28-Aug-2017, 28-Aug-2017, Standard ? Folic Acid, Tablet DOSE = 1 mg Oral Daily, Active, 28-Aug-2017, 28-Aug-2018, Standard ? Multivitamin with Minerals, Tablet DOSE = 1 tablet(s) Oral Daily, Active, 28-Aug-2017, 28-Aug-2018, Standard ? Thiamine, Tablet DOSE = 200 mg Oral Daily, Active, 28-Aug-2017, 01-Sep-2018, Standard ? LORazepam Injectable, (ATIVAN) DOSE = 0.5 mg IntraVenous Push Every 2 Hours, PRN CIWA score 6-7 or HR > 100, Active, 28-Aug-2017, 28-Aug-2018, Standard ? LORazepam Injectable, (ATIVAN) DOSE = 1 mg IntraVenous Push Every 2 Hours, PRN CIWA score 8-9, Active, 28-Aug-2017, 28-Aug-2018, Standard ? LORazepam Injectable, (ATIVAN) DOSE = 2 mg IntraVenous Push Every 2 Hours, PRN CIWA score greater than 9, Active, 28-Aug-2017, 28-Aug-2018, Standard ? LORazepam Injectable, (ATIVAN) DOSE = 2 mg IntraVenous Push Once, Completed, 28-Aug-2017, 28-Aug-2017, Standard ? Ondansetron Injectable, (ZOFRAN) DOSE = 4 mg IntraVenous Push Once, Completed, 28-Aug-2017, 28-Aug-2017, Standard ? Sodium Chloride 0.9% IV Bolus, DOSE = 1,000 mL Once Infuse over 1 hour(s), Completed, 28-Aug-2017, 28-Aug-2017, Standard ? Drug Screen, Urine, Floor to Collect - Routine Urine Container-Refrigerate Clinician Instructions: Notify MD of positive urine toxic results. Includes: Amphetamines, Barbiturates, Benzodiazepines, Cannabinoids, Cocaine Metabolites, Methadone, Oxycodone, Opiates and PCP., Final Results, 28-Aug-2017, Standard ? Complete Blood Count, Floor to Collect - STAT Lavender EDTA, Final Results, 28-Aug-2017, Standard ? Comprehensive Metabolic Panel, Floor to Collect - STAT Plasma/Serum Separator, Final Results, 28-Aug-2017, Standard ? Ethanol Level, Floor to Collect - STAT Plasma/Serum Separator, Final Results, 28-Aug-2017, Standard ? Lipase, Serum, Floor to Collect - STAT Plasma/Serum Separator, Final Results, 28-Aug-2017, Standard ? Magnesium, Serum, Floor to Collect - STAT Plasma/Serum Separator, Final Results, 28-Aug-2017, Standard ? Phosphorus, Serum, Floor to Collect - STAT Plasma/Serum Separator, Final Results, 28-Aug-2017, Standard ? Electrocardiogram 12 Lead, Routine, Completed, 28-Aug-2017, 28-Aug-2017, Standard ? Call Physician, For: increase in CIWA score Greater Than 20 for transfer to ICU., Active, 28-Aug-2017, Standard ? Call Physician, For: total 24 hr diazepam Over 100 mg, Active, 28-Aug-2017, Standard ? Clinical Randolph Withdrawal Assessment of Alcohol Use Scale, <Continuous>, Per Protocol Assess baseline CIWA score and record on assessment flowsheet., Active, 28-Aug-2017, Standard ? Communication Order, Please notify physician and continue vital signs every 2 hours if CIWA score remains greater than 9 after 24 hours., Active, 28-Aug-2017, Standard ? IV, Insert, Once, Active, 28-Aug-2017, Standard ? Vital Signs, Multiple - see comments Vitals and CIWA assessment Q2 hours x 24 hours, then Q4 hours x 24 hours and then Q8 hours. If score greater than 9, restart the q 2 vitals and CIWA assessment., Active, 28-Aug-2017, Standard ? Call Physician, For: total 24 hr lorazepam Over 20 mg, Active, 28-Aug-2017, Standard Lab Results: ? Results I have reviewed these laboratory results: Complete Blood Count 28-Aug-2017 10:44:00 ResultValue White Blood Cell Count 6.6 Nucleated Erythrocyte Count 0.0 Red Blood Cell Count 4.07 L HGB 13.1 L HCT 37.0 L MCV 91 MCHC 35.4 PLT 183 RDW-CV 13.4 Comprehensive Metabolic Panel 28-Aug-2017 10:44:00 ResultValue Glucose, Serum 88 NA 142 K 3.7 CL 104 Bicarbonate, Serum 27 Anion Gap, Serum 15 BUN 10 CREAT 0.58 GFR-Non >60 GFR- >60 Calcium, Serum 8.9 ALB 4.0 ALKP 171 H T Pro 6.3 L T Bili 0.3 Alanine Aminotransferase, Serum 45 Aspartate Transaminase, Serum 37 Magnesium, Serum 28-Aug-2017 10:44:00 ResultValue Magnesium, Serum 2.08 Ethanol Level 28-Aug-2017 10:44:00 ResultValue Ethanol Level 248 A Phosphorus, Serum 28-Aug-2017 10:44:00 ResultValue Phosphorus, Serum 3.5 Lipase, Serum 28-Aug-2017 10:44:00 ResultValue Lipase, Serum 30 Drug Screen, Urine 28-Aug-2017 09:38:00 ResultValue Comments. SEE BELOW Drug screen results are presumptive and should not be used to assess compliance with prescribed medication. Contact the performing [facility] laboratory to add-on definitive confirmatory testing if clinically indicated. . Toxicology scre Amphetamine Screen, Urine PRESUMPTIVE NEGATIVE CUTOFF LEVEL: 500 NG/ML Cross-reactivity has been reported with high concentrations of the following drugs: buproprion, chloroquine, chlorpromazine, ephedrine, mephentermine, fenfluramine, phentermine, phenylpropanolamine Barbiturate Screen, Urine PRESUMPTIVE NEGATIVE PRESUMPTIVE NEGATIVE CUTOFF LEVEL: 200 NG/ML Benzodiazepine Screen, Urine PRESUMPTIVE NEGATIVE PRESUMPTIVE NEGATIVE CUTOFF LEVEL: 200 NG/ML Cannabinoid Screen, Urine PRESUMPTIVE POSITIVE PRESUMPTIVE POSITIVE CUTOFF LEVEL: 50 NG/ML A Cocaine Metabolite Screen, Urine PRESUMPTIVE NEGATIVE PRESUMPTIVE NEGATIVE CUTOFF LEVEL: 150 NG/ML Methadone Screen, Urine PRESUMPTIVE NEGATIVE CUTOFF LEVEL: 150 NG/ML The metabolite H-oiscs-qvgbvebclskpvf (LAAM) is not detected by this method in concentrations that would be found in the urine of patients on LAAM therapy. Opiate Screen, Urine PRESUMPTIVE NEGATIVE CUTOFF LEVEL: 300 NG/ML The opiate screen does not detect fentanyl, meperidine, or tramadol. Oxycodone is not consistently detected (refer to Oxycodone Screen, Urine result). Oxycodone Screen, Urine (item) PRESUMPTIVE NEGATIVE CUTOFF LEVEL: 100 NG/ML This test will accurately detect both oxycodone and oxymorphone. PCP Screen, Urine PRESUMPTIVE NEGATIVE CUTOFF LEVEL: 25 NG/ML Cross-reactivity has been reported with dextromethorphan. Diagnoses/Visit Problems: ? Palpitations: ? Tachycardia: ? Alcohol withdrawal syndrome: MEDICATION RECONCILIATION/DISCHARGE MEDS: * Outpatient Medication Status not yet specified Attestation: CRITICAL CARE: ? Is This a Critically Ill Patientno Electronic Signatures: Raymond Ellison (Resident)) (Signed 28-Aug-2017 13:00) Authored: Time Seen / ED Notes, Triage Vital Signs, Patient History, History Attestation, Current Orders/Wire Threader, Lab Results Review, ED Disposition (REQUIRED), Attestation Karina Whittaker) (Signed 07-Sep-2017 08:57) Authored: History of Present Illness, Patient History, Attestation Co-Signer: Time Seen / ED Notes, Triage Vital Signs, Patient History, History Attestation, Current Orders/Wire Threader, Lab Results Review, ED Disposition (REQUIRED), Attestation Last Updated: 07-Sep-2017 08:57 by Karina Whittaker) References: 1. Data Referenced From Triage - ED 08/28/2017 9:13 AM DRUG SCREEN,URINE Collected: 08/28/2017 Status: F Source: DRIVER 9:38 AM HOSPITALS REPOSITORY TYPE CODE TESTS RESULT OUT OF REFERENCE UNITS RANGE LAB AMPH(LOIN NEGATIVE C) AMPHETAMINE PRESUMPTIVE SCREEN,U NEGATIVE Result Comment: CUTOFF LEVEL: 500 NG/ML Cross-reactivity has been reported with high concentrations of the following drugs: buproprion, chloroquine, chlorpromazine, ephedrine, mephentermine, fenfluramine, phentermine, phenylpropanolamine, pseudoephedrine, and propranolol. LAB ARIANNA(LOINC) NEGATIVE BARBITURATES PRESUMPTIVE SCREEN,U NEGATIVE Result Comment: CUTOFF LEVEL: 200 NG/ML LAB BENZO(LOINC) NEGATIVE BENZODIAZEPINES SCREEN,U PRESUMPTIVE NEGATIVE Result Comment: CUTOFF LEVEL: 200 NG/ML LAB SHIRLEY(LOINC) NEGATIVE Abnormal CANNABINOIDS PRESUMPTIVE SCREEN,U POSITIVE Result Comment: CUTOFF LEVEL: 50 NG/ML LAB COCAI(LOINC) NEGATIVE COCAINE PRESUMPTIVE METABOLITE NEGATIVE SCREEN,U Result Comment: CUTOFF LEVEL: 150 NG/ML LAB METHD(LOINC) NEGATIVE PRESUMPTIVE METHADONE NEGATIVE SCREEN,U Result Comment: CUTOFF LEVEL: 150 NG/ML The metabolite R-fzdcm-vugtftndtxxqeo (LAAM) is not detected by this method in concentrations that would be found in the urine of patients on LAAM therapy. LAB OPIAT(LOINC) NEGATIVE PRESUMPTIVE OPIATES NEGATIVE SCREEN,U Result Comment: CUTOFF LEVEL: 300 NG/ML The opiate screen does not detect fentanyl, meperidine, or tramadol. Oxycodone is not consistently detected (refer to Oxycodone Screen, Urine result). LAB OXYS2(LOINC) NEGATIVE PRESUMPTIVE OXYCODONE NEGATIVE SCREEN,U Result Comment: CUTOFF LEVEL: 100 NG/ML This test will accurately detect both oxycodone and oxymorphone. LAB PCP(LOINC) NEGATIVE PCP PRESUMPTIVE SCREEN,U NEGATIVE Result Comment: CUTOFF LEVEL: 25 NG/ML Cross-reactivity has been reported with dextromethorphan. LAB DRCOM(LOINC) DRUG SCREEN COMMENT SEE BELOW Result Comment: Drug screen results are presumptive and should not be used to assess compliance with prescribed medication. Contact the performing [facility] laboratory to add-on definitive confirmatory testing if clinically indicated. . Toxicology screening results are reported qualitatively. The concentration must be greater than or equal to the cutoff to be reported as positive. The concentration at which the screening test can detect an individual drug or metabolite varies. The absence of expected drug(s) and/or drug metabolite(s) may indicate non-compliance, inappropriate timing of specimen collection relative to drug administration, poor drug absorption, diluted/adulterated urine, or limitations of testing. For medical purposes only; not valid for forensic use. . Interpretive questions should be directed to the laboratory medical directors. Performed By: #### [id number] #### [facility] [id number] [place] [address] TRIAGE - ED Observed: 08/28/2017 Status: UNK Source: DRIVER 9:13 AM HOSPITALS REPOSITORY Quick Triage: The patient and/or guardian verbally acknowledges placement for services into the following (when Urgent Care Service hours are operating):emergency department Pain: Pain Rating (0-10): Rest10 Pain Rating (0-10): [id number] Chart Review: CHIEF COMPLAINT ZAINA DOLL is a Male patient with a chief complaint of (Alcohol Withdrawal, last drink 0200). Triage Date/Time: 28-Aug-2017 09:13 Pain Rating (0-10): Rest: 10 Pain Rating (0-10): Activity: 10 Pain location: general Vital Signs: Temperature: 96.2F ( 35.7C) taken forehead Blood Pressure: 142/89 Mean: Heart Rate: 124 Respiratory Rate: 18 Pulse Oximetry: 96% on room air, no respiratory support. Height: 6 feet 3.00 inches. 190.5 CM Weight: 173.0 pounds. Calculated 78.4 kg. (stated) Calculated BMI (kg/m2): 21.603 Calculated BSA (m2) 2.04 Cough lasting greater than 3 weeks: no Patient immunocompromised related to: N/A Travel outside of [place]: no Allergies: yes Patient has suicidal thoughts: unable to assess Patient has homicidal thoughts: unable to assess GEOVANNA: 2 PAIN Pain Scale Used: ALLI Past Medical History: ? Past Medical History Reviewedyes Electronic Signatures: Yudy Valdovinos (GARY) (Signed 28-Aug-2017 09:15) Authored: Triage, Past Medical History Last Updated: 28-Aug-2017 09:15 by Yudy Valdovinos (RN) ED PHYSICIAN REPORT Observed: 08/26/2017 Status: F Source: [facility] 8:27 PM [facility] REPOSITORY Patient: ZAINA DOLL Age: 37 years Sex: Male : 1980 Associated Diagnoses: Alcohol intoxication; Alcohol intoxication; Alcohol abuse Author: NARA MCCLAIN PA-C Basic Information Addendum: Time of addendum:: 08/25/2017 08:48:00 , Assumed care from: EARNESTINE KHOURY CNP, Pertinent history: Patient awaiting consult. Medical Decision Making Documents reviewed: Emergency department records, prior records. Reexamination/ Reevaluation Time: 08/25/2017 08:40:00 . Vital signs results included from flowsheet : Vital Signs 08/25/2017 8:40 EDT Temperature Oral 37.3 degC NORMAL Peripheral Pulse Rate 118 bpm HI Systolic Blood Pressure 133 mmHg NORMAL Diastolic Blood Pressure 87 mmHg NORMAL Mean Arterial Pressure, Cuff 102 mmHg SpO2 100 % NORMAL Oxygen Therapy Room air 08/25/2017 2:00 EDT Oxygen Therapy Room air 08/25/2017 1:57 EDT Temperature Oral 36.4 degC NORMAL Peripheral Pulse Rate 108 bpm HI Respiratory Rate 16 br/min NORMAL Systolic Blood Pressure 119 mmHg NORMAL Diastolic Blood Pressure 80 mmHg NORMAL SpO2 98 % NORMAL Oxygen Therapy Room air Height/Length Dosing 190.5 cm Weight Dosing 79.5 kg Body Mass Index Dosing 22 Interventions: Pt and Mom upset he is not getting admitted for inpatient detox. Pt was seen by and he cannot be placed due to previous physicial encounters at facilities where he acted inappropriate ly. Pt was given resources. Discussed with pt and he states I'll make some phone calls and figure it out. Pt was tapping his foot during conversation. No tremors at rest. Pt c/o 5/10 headache. NO active signs of withdrawal at this time. Vitals stable other than mild tachycardia however pt was agitated during vitals. He is able to keep down PO fluids and food at this time and has a breakfast tray bedside. Pt stable for d/c. . Impression and Plan Diagnosis Alcohol intoxication (PNED [id number], Reason For Visit, Medical) Alcohol intoxication ([id number] F10.929, Working, Medical) Alcohol abuse (FUT08-TA F10.10, Working, Medical) Alcohol intoxication (PNED [id number], Reason For Visit, Emergency medicine, Medical) Plan Condition: Stable. Disposition: Discharged: to home. Counseled: Patient, Family, Regarding diagnosis, Regarding diagnostic results, Regarding treatment plan, Family understood, Patient indicated understanding of instructions. Notes: I personally evaluated and examined the patient in conjunction with the MLP and agree with the assessment, treatment plan and disposition of the patient as recorded by the MLP. . Electronically Co-Signed by: RUBIO ELLISON DO on 08/26/2017 20:27 ED PHYSICIAN REPORT Observed: 08/26/2017 Status: F Source: [facility] 8:27 PM [facility] REPOSITORY Patient: ZAINA DOLL Age: 37 years Sex: Male : 1980 Associated Diagnoses: Alcohol intoxication; Alcohol abuse Author: EARNESTINE KHOURY CNP Basic Information Time seen: Time Seen: EARNESTINE KHOURY CNP / 08/25/2017 01:59 . History source: Patient, mother. Arrival mode: Private vehicle. History limitation: None. History of Present Illness The patient presents with alcohol intoxication. The onset was chronic. The course/duration of symptoms is constant. The Reason for ingestion is addicted. The amount/type ingested is liquor. Risk fa ctors consist of alcohol abuse. Therapy today: none. Associated symptoms: none. Additional history: rehabilitation: interested in seeking rehabilitation. 37-year-old male with a history of schizoaffective presents for request to detox from alcohol. Patient is a daily drinker for approximately 11 years. He drinks liquor. States his last drink today was several hours ago. Patient has been evaluated on multiple occasions for similar. He presents with his mother. He is requesting assistance with placement at detox facility. Patient states he was jus t discharged from [facility] emergency department for similar request just several hours prior to arrival into our facility. He demonstrates no withdrawal symptoms. Reports marijuana use, den ies all other drug use. Takes no prescribed medication. Denies suicidal and homicidal ideation. Denies hallucinations. No other symptoms or concerns. Reported Review of Systems Constitutional symptoms: Negative except as documented in HPI, no fever, no chills. Skin symptoms: Negative except as documented in HPI, No rash, Eye symptoms: Negative except as documented in HPI. ENMT symptoms: Negative except as documented in HPI. Respiratory symptoms: Negative except as documented in HPI, no shortness of breath, no cough. Cardiovascular symptoms: Negative except as documented in HPI, no chest pain, no palpitations. Gastrointestinal symptoms: Negative except as documented in HPI, no abdominal pain, no nausea, no vomiting, no diarrhea, no constipation. Genitourinary symptoms: Negative except as documented in HPI. Musculoskeletal symptoms: Negative except as documented in HPI, No back pain, Psychiatric symptoms: Substance abuse. Endocrine symptoms: Negative except as documented in HPI. Hematologic/Lymphatic symptoms: Negative except as documented in HPI. Allergy/immunologic symptoms: Negative except as documented in HPI. Neurologic symptoms Negative except as documented in HPI, no headache, no dizziness. Additional review of systems information: All other systems reviewed and otherwise negative. Health Status Allergies: Allergic Reactions (Selected) Severity Not Documented Morphine- No reactions were documented.. Medications: None. Immunizations: Per nurse's notes. Past Medical/ Family/ Social History Medical history: Reviewed as documented in chart. Surgical history: endoscopy.. Family history: Entire family history is negative.. Social history: Alcohol use: Regularly, Tobacco use: Regularly, Drug use: Marijuana. Problem list: Active Problems (8) ADHD (attention deficit hyperactivity disorder) At risk for falls Bipolar 1 disorder Manic affective disorder, recurrent episode, in full remission OCD (obsessive compulsive disorder) Schizo affective schizophrenia Suicidal ideation Tobacco abuse . Physical Examination Vital Signs Vital Signs 08/25/2017 1:57 EDT Temperature Oral 36.4 degC NORMAL Peripheral Pulse Rate 108 bpm HI Respiratory Rate 16 br/min NORMAL Systolic Blood Pressure 119 mmHg NORMAL Diastolic Blood Pressure 80 mmHg NORMAL SpO2 98 % NORMAL Oxygen Therapy Room air Height/Length Dosing 190.5 cm Weight Dosing 79.5 kg Body Mass Index Dosing 22 . Per nurse's notes. General: Alert, no acute distress. Skin: Warm, dry, pink, no rash. Head: Normocephalic, atraumatic. Neck: Trachea midline. Eye: Vision grossly normal. Ears, nose, mouth and throat: Oral mucosa moist. Cardiovascular: Regular rate and rhythm, No murmur, Normal peripheral perfusion. Respiratory: Lungs are clear to auscultation, respirations are non-labored, breath sounds are equal, Symmetrical chest wall expansion. Back: Normal range of motion. Musculoskeletal: Normal ROM, normal strength, no swelling. Chest wall Gastrointestinal: Soft, Nontender, Non distended, Normal bowel sounds. Psychiatric: Cooperative, appropriate mood & affect, Judgment: Impaired by intoxication, Abnormal / Psychotic thoughts: not suicidal, not homicidal. Neurological Alert and oriented to person, place, time, and situation, No focal neurological deficit observed, normal motor observed, normal speech observed. Medical Decision Making Rationale: MEDICAL CLEARANCE FOR PSYCHIATRIC EVALUATION: No clinical evidence of drug-induced psychosis, meningitis, encephalitis, sepsis, thyroid disease, hypoglycemia, withdrawal syndrome, hypoxemia, electrolyte disturbance, CVA/TIA, seizures, or traumatic brain injury. PATIENT IS MEDICALLY CLEARED. Documents reviewed: Emergency department nurses' notes. Electrocardiogram: Time 08/25/2017 02:02:00, rate 104, No ST-T changes, Sinus tachycardia. Results review: Lab results : Laboratory 08/25/2017 3:27 EDT Estimated Creatinine Clearance 169.34 mL/min 08/25/2017 2:10 EDT BUN 11 mg/dL NORMAL Na 138 mmol/L NORMAL K 3.3 mmol/L LOW Chloride 100 mmol/L NORMAL CO2, venous 32.2 mmol/L HI Glucose 120 mg/dL HI Creatinine 0.7 mg/dL NORMAL Total Protein 7.4 g/dL NORMAL Calcium 8.9 mg/dL NORMAL Bilirubin, Total 0.84 mg/dL NORMAL Alk Phos 176 unit/L HI GOT 29 unit/L NORMAL GPT 37 unit/L NORMAL BUN/Creat Ratio 14.9 NA Calculated Osmolality 276 mOsm/kg NORMAL Globulin 3.6 g/dL NA A/G Ratio 1.1 NA Free T4 1.06 ng/dL NORMAL TSH 1.34 uIU/ml NORMAL ALB 3.8 g/dL NORMAL Date Last Dose UNK Date Last Dose UNK Time Last Dose UNK Time Last Dose UNK Acetaminophen <2.0 ug/ml LOW Salicylate 1.8 mg/dL LOW Alcohol, Serum 116 mg/dL NA Glomerular Filtration Rate >60 mL/min/1.73m? NA GFR AA >60 NA WBC 8.2 x10 RBC 4.53 x10 HGB 14.7 g/dL NORMAL HCT 42.8 % NORMAL MCV 94.5 fL NORMAL MCH 32.6 pg NORMAL MCHC 34.4 g/dL NORMAL RDW 14.1 NORMAL Platelet 208 x1000 NORMAL MPV 7.7 fL NORMAL Nucleated RBC 0 /100WBC NA Lymph % 11.9 % NA [place] % 4.0 % NA Neutrophil % 82.9 % NA Eosin % 0.7 % NA Basos % 0.5 % NA Lymph Count 0.98 x1000 LOW [place] Count 0.33 x1000 NORMAL Neutrophil Count (ANC) 6.83 x1000 NORMAL Eos Count 0.06 x1000 NORMAL Baso Count 0.04 x1000 NORMAL Color, U Yellow Appearance, U Clear Specific [place], U 1.014 NORMAL pH, U 6.0 NORMAL Protein, U Negative Glucose Qual, U Negative Ketones, U 20 mg/dl Bilirubin, U Negative Blood, U Negative Urobilinogen Qual, U 2.0 mg/dl Nitrite, U Negative Leukocyte Esterase, U Negative Amphetamines, U Negative Barbituates, U Negative PCP, U Negative Benzodiazepines, U Negative Cocaine, U Negative THC, U Positive Opiates, U Negative Ecstasy, U Negative . Impression and Plan Diagnosis Alcohol intoxication ([id number] F10.929, Working, Medical) Alcohol abuse (SAF07-TK F10.10, Working, Medical) Plan Condition: Stable. Disposition: Patient care transitioned to: Time: 08/25/2017 06:00:00, NARA MCCLAIN PA-C, Awaiting [facility] consultation. Addendum I personally evaluated and examined the patient in conjunction with the MLP and agree with the assessment, treatment plan and disposition of the patient as recorded by the MLP. Electronically Co-Signed by: RUBIO ELLISON DO on 08/26/2017 20:27 PROVIDER NOTE - ED Observed: 08/26/2017 Status: COMPLETED Source: [facility] 1:13 AM HOSPITALS REPOSITORY Time Seen: ? Time [id number] 01:01 Triage Vital Signs: ? Triage Information Most recent Vital Sign Value Date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 875-125 mg per tablet TAKE 1 TABLET EVERY 12 HOURS UNTIL GONE buPROPion XL (WELLBUTRIN XL) 150 mg 24 hr tablet Take 150 mg by mouth once daily. methylPREDNISolone (MEDROL DOSE-PACK) 4 mg Dose-Pack as directed. multivitamin tablet Take by mouth. naltrexone (TREXAN) 50 mg tablet Take 50 mg by mouth once daily. NTS STEP 1 21 mg/24 hr USE DIRECTED 1 PATCH DAILY NEEDED nicotine (NICODERM) 21 mg/24 hr Apply 1 Patch as directed. traZODone (DESYREL) 100 mg tablet Take 100 mg by mouth daily at bedtime. albuterol HFA (PROVENTIL HFA, VENTOLIN HFA) 90 mcg/actuation inhaler Inhale 2 Puffs as instructed. busPIRone (BUSPAR) 15 mg tablet Take 15 mg by mouth three times daily. gabapentin (NEURONTIN) 800 mg tablet Take 1 tablet by mouth three times daily for 90 days. Omeprazole 40 mg capsule TAKE ONE CAPSULE BY MOUTH TWICE A DAY ziprasidone (GEODON) 40 mg capsule Take 1 capsule by mouth twice daily with meals. nicotine polacrilex (NICORETTE) 2 mg gum Take 1 Each by mouth every 2 hours as needed. Objective BP 100/74 Pulse 76 Resp 18 Ht 6' 3 (1.91m) Wt 193 lb (87.5kg) SpO2 99% BMI 24.12 kg/(m2). Physical Exam Constitutional: He is well-developed, well-nourished, and in no distress. HENT: Head: Normocephalic and atraumatic. Eyes: Conjunctivae and EOM are normal. Cardiovascular: Normal rate and regular rhythm. Pulmonary/Chest: Effort normal and breath sounds normal. Skin: Skin is warm and dry. Vitals reviewed. Encounter Diagnosis ICD-10-CM 1. Gastroesophageal reflux disease without esophagitis K21.9 DRUG SCREEN,URINE Collected: 08/03/2017 Status: F Source: DRIVER 3:59 PM HOSPITALS REPOSITORY TYPE CODE TESTS RESULT OUT OF REFERENCE UNITS RANGE LAB AMPH(LOIN NEGATIVE C) AMPHETAMINE PRESUMPTIVE SCREEN,U NEGATIVE Result Comment: CUTOFF LEVEL: 500 NG/ML Cross-reactivity has been reported with high concentrations of the following drugs: buproprion, chloroquine, chlorpromazine, ephedrine, mephentermine, fenfluramine, phentermine, phenylpropanolamine, pseudoephedrine, and propranolol. LAB ARIANNA(LOINC) NEGATIVE BARBITURATES PRESUMPTIVE SCREEN,U NEGATIVE Result Comment: CUTOFF LEVEL: 200 NG/ML LAB BENZO(LOINC) NEGATIVE BENZODIAZEPINES SCREEN,U PRESUMPTIVE NEGATIVE Result Comment: CUTOFF LEVEL: 200 NG/ML LAB SHIRLEY(LOINC) NEGATIVE Abnormal CANNABINOIDS PRESUMPTIVE SCREEN,U POSITIVE Result Comment: CUTOFF LEVEL: 50 NG/ML LAB COCAI(LOINC) NEGATIVE Abnormal COCAINE PRESUMPTIVE METABOLITE POSITIVE SCREEN,U Result Comment: CUTOFF LEVEL: 150 NG/ML LAB METHD(LOINC) NEGATIVE PRESUMPTIVE METHADONE NEGATIVE SCREEN,U Result Comment: CUTOFF LEVEL: 150 NG/ML The metabolite S-ekrmw-sjaqmujllvqqnm (LAAM) is not detected by this method in concentrations that would be found in the urine of patients on LAAM therapy. LAB OPIAT(LOINC) NEGATIVE PRESUMPTIVE OPIATES NEGATIVE SCREEN,U Result Comment: CUTOFF LEVEL: 300 NG/ML The opiate screen does not detect fentanyl, meperidine, or tramadol. Oxycodone is not consistently detected (refer to Oxycodone Screen, Urine result). LAB OXYS2(LOINC) NEGATIVE PRESUMPTIVE OXYCODONE NEGATIVE SCREEN,U Result Comment: CUTOFF LEVEL: 100 NG/ML This test will accurately detect both oxycodone and oxymorphone. LAB PCP(LOINC) NEGATIVE PCP PRESUMPTIVE SCREEN,U NEGATIVE Result Comment: CUTOFF LEVEL: 25 NG/ML Cross-reactivity has been reported with dextromethorphan. LAB DRCOM(LOINC) DRUG SCREEN COMMENT SEE BELOW Result Comment: Drug screen results are presumptive and should not be used to assess compliance with prescribed medication. Contact the performing [facility] laboratory to add-on definitive confirmatory testing if clinically indicated. . Toxicology screening results are reported qualitatively. The concentration must be greater than or equal to the cutoff to be reported as positive. The concentration at which the screening test can detect an individual drug or metabolite varies. The absence of expected drug(s) and/or drug metabolite(s) may indicate non-compliance, inappropriate timing of specimen collection relative to drug administration, poor drug absorption, diluted/adulterated urine, or limitations of testing. For medical purposes only; not valid for forensic use. . Interpretive questions should be directed to the laboratory medical directors. Performed By: #### [email or web address] #### [facility] [id number] [place] [address] PROVIDER NOTE - ED Observed: 08/03/2017 Status: COMPLETED Source: DRIVER 2:25 PM HOSPITALS REPOSITORY Time Seen: ? Time Seen 03-Aug-2017 13:53 ED Notes: ? ED Notes HPI: 37-year-old male with history of schizophrenia disorder, polysubstance abuse, and hypertension who presents to the emergency department with complaints of throat and chest pain. Patient reports he was recently discharged from a substance abuse facility, started multiple new medications, reports last evening at 11:30 PM he developed throat and chest throbbing, rates discomfort 10/10, denies taking anything for his pain, nothing appears to provoke or improved pain. Pain is non-radiating. Patient reports difficulty swallowing. Patient denies diaphoresis, shortness of breath, or palpitations. Patient endorses he used marijuana and cocaine yesterday. ROS (also see HPI): Constitutional: No fever. No chills. Skin: No new rashes. No new sores. Eyes: No blurry vision. No double vision. HENT: POSITIVE throat pain. No sinus congestion. CV: POSITIVE chest pain. No palpitations. No leg swelling. Resp: No cough. No dyspnea. GI: No abdominal pain. No diarrhea. No nausea. No vomiting. MSK: No myalgias. No arthralgias. No back pain. Neuro: No headache. No lightheadedness. No weakness. : No dysuria. No frequency. ALLERGIES: Morphine PMH / PSH (include): Schizophrenia disorder, GERD, polysubstance abuse, HTN SH: Regular tobacco use. History of EtOH/polysubstance abuse. No IV drug use MEDS (include): gabapentin, Wellbutrin, omeprazole, Revia, Trazadone Physical Exam: VS: As documented in the triage note and EMR flowsheet from this visit were reviewed. General: WD. NAD. Skin: Warm, dry, and intact. No systemic rashes or lesions appreciated. Eyes: PER. EOMI. CS. HENT: AT. NC. MMM. Tongue is midline without edema. Uvula is midline without edema. Neck: Supple. No cervical lymphadenopathy. CV: Regular rate and rhythm. No M/R/G appreciated. Warm extremities. No pedal edema appreciated. No JVD. Radial pulses 2+ BL. Resp: CTAB. No wheezing, rhonchi, or rales. No increased work of breathing, accessory muscle use, or retractions. Patient speaking in full sentences. GI: Soft, nontender, nondistended. Active bowel sounds in all 4 quadrants. No guarding, rebound tenderness, or masses noted. MSK: No contractures, deformities, asymmetry, or effusions of extremities appreciated. Lifts both arms to parallel. NML ROM at wrists, elbows. NML flexion / rotation of neck. No TTP along spine. Neuro: Alert. Answers questions appropriately. No facial asymmetry. Symmetric elevation of palate. Midline tongue protrusion. Normal strength on shoulder shrugging. 5/5 strength of upper extremities. Ambulating without difficulty. Psych: Appropriate. K[place]. Medical Decision Making: Hospital Course: Nurse's evaluation reviewed. Zaina Doll is a 37-year-old male who presents to the ED complaining of chest and throat throbbing. Vitals stable. Patient evaluated. Exam revealed No uvula swelling, tongue swelling or urticaria. EKG interpreted as NSR at 92 bpm, no ST elevation or depression. Patient recently admitted to [facility] for alcohol withdraw and CP. For ordered labs, imaging, and/or treatment(s) see section Current Orders / Wire Threader. Multiple etiologies to patient's presentation were considered low suspicion for cardiac related chest pain. Interpretation of imaging: Radiologist's impression reviewed -- no acute cardiopulmonary process. Personally reviewed lab results were found to be unremarkable. Re-evaluated after medications and felt improved. Patient states she has scheduled follow-up with his PCP on Wednesday. He is scheduled to meet with geriatric social work professor tomorrow, continuing to work with recovery resources to arrange for treatment facility designation. Patient desires to be discharged home. Plan of care discussed to keep scheduled follow-up, continue the medications as prescribed, strict return precautions were discussed. Patient agreed to and acknowledge plan of care. Diagnosis: Atypical chest pain Disposition: Discharge. F/U with PCP as scheduled Patient case was discussed with Dr. Gross, who also saw and evaluated the patient. Patient and/or patient small business sales representative counseled regarding contents of Hospital Course / Medical Decision Making as well as diagnosis and plan. All questions answered. Triage Vital Signs: ? Triage Information Most recent Vital Sign Value Date Temp (F): 98.6 08-03-2017 13:32 Temp (C): 37 08-03-2017 13:32 Heart Rate (beats/min): 102 08-03-2017 13:32 Respirations (breaths/min): 16 08-03-2017 13:32 SpO2 (%): 98 08-03-2017 13:32 BP Systolic (mm Hg): 134 08-03-2017 13:32 BP Diastolic (mm Hg): 84 08-03-2017 13:32 History of Present Illness: This 37 year old Male presents with complaint(s) of chest pain and States he is having throat swelling and chest pain. Just had medications changed. Speaking in full sentences with difficulty and swallow coffee without any issues.(1) Significant Events: ? Seizure Disorder: Past Medical History, from alcohol withdraw, Active ? EtOH abuse: Past Medical History, Active ? Hypertension (HTN): Past Medical History, Active ? GERD: Past Medical History, Active ? schizoaffective disorder: Past Medical History, Active Allergy, Intolerance, Adverse Event: Allergies: ? morphine: Drug, Hives/Urticaria, Active ? opiates: Drug Category, Unknown, Active ? narcotic analgesics: Drug Category, Unknown, Active Outpatient Medication, Review/Add Medications: * Patient Currently Takes Medications as of 23-Jul-2017 10:22 documented in Structured Notes HISTORY ATTESTATION: ? Attestation I have reviewed and confirmed nurse's/medic's notes for patient's medications, allergies, medical history, and surgical history Vital Signs: ? Objective Information T P R BP SpO2 O2(LPM) %FiO2 Method 03-Aug-2017 16:04:00- 90 16 120/90 99 room air, no respiratory support 03-Aug-2017 13:32:00- 37 102 16 134/84 98 room air, no respiratory support CURRENT ORDERS/AFRICAN STUDIES PROFESSOR: ? diphenhydrAMINE Injectable, (BENADRYL) DOSE = 25 mg IntraVenous Push Once, Completed, 03-Aug-2017, 03-Aug-2017, Standard ? Brain Natriuretic Peptide, Floor to Collect - STAT Lavender EDTA, Final Results, 03-Aug-2017, Standard ? Complete Blood Count + Differential, Floor to Collect - STAT Lavender EDTA, Final Results, 03-Aug-2017, Standard ? Comprehensive Metabolic Panel, Floor to Collect - STAT Plasma/Serum Separator, Final Results, 03-Aug-2017, Standard ? Creatine Kinase, Level, STAT, Final Results, 03-Aug-2017, Standard ? Troponin I, Serum, Floor to Collect - STAT Green Heparinized or SST, Final Results, 03-Aug-2017, Standard ? Add Lab to Collected Specimen, STAT -Please contact Lab Service when requesting add on with STAT priority. Tests to be added: CK, Final Results, 03-Aug-2017, Standard ? Drug Screen, Urine, Floor to Collect - Routine Urine Container-Refrigerate, Received/Pending Result, 03-Aug-2017, Standard ? Xray Chest 2 View PA + Lateral, Critical/STAT (within 1-3 hrs) Scheduled date/time: 03-Aug-2017 13:35, Final Results, 03-Aug-2017, Standard ? Electrocardiogram 12 Lead, STAT, Completed, 03-Aug-2017, 03-Aug-2017, Standard ? IV, Insert, Once Saline lock, Completed, 03-Aug-2017, 03-Aug-2017, Standard ? NIPP Communication_Chest Pain with Shortness of Breath, Discontinued via Patient Discharge, 03-Aug-2017, 03-Aug-2017, Standard Lab Results: ? Results I have reviewed these laboratory results: Complete Blood Count + Differential 03-Aug-2017 13:55:00 Result Value White Blood Cell Count 8.9 Nucleated Erythrocyte Count 0.0 Red Blood Cell Count 4.50 HGB 14.4 HCT 41.8 MCV 93 MCHC 34.4 PLT 309 RDW-CV 14.0 Neutrophil % 77.6 Immature Granulocytes % 0.3 Lymphocyte % 15.9 Monocyte % 5.5 Eosinophil % 0.1 Basophil % 0.6 Neutrophil Count 6.90 Lymphocyte Count 1.41 Monocyte Count 0.49 Eosinophil Count 0.01 Basophil Count 0.05 Comprehensive Metabolic Panel 03-Aug-2017 13:55:00 Result Value Glucose, Serum 99 NA 138 K 4.2 CL 99 Bicarbonate, Serum 29 Anion Gap, Serum 14 BUN 8 CREAT 0.78 GFR-Non >60 GFR- >60 Calcium, Serum 10.3 ALB 5.0 ALKP 74 T Pro 7.7 T Bili 0.7 Alanine Aminotransferase, Serum 14 Aspartate Transaminase, Serum 21 Brain Natriuretic Peptide 03-Aug-2017 13:55:00 Result Value Brain Natriuretic Peptide 25 Troponin I, Serum 03-Aug-2017 13:55:00 Result Value Troponin I, Serum <0.02 Creatine Kinase, Level 03-Aug-2017 13:55:00 Result Value Creatine Kinase, Level 223 Diagnostic Imaging Results Review: Radiology Results: ? Results Impression: 1. No radiographic evidence of acute cardiopulmonary process. Xray Chest 2 View PA + Lateral [Aug 03 2017 2:53PM] EKG Results: ? EKG Date/Time 03-Aug-2017 13:41 ? Rate 92 ? Interpretation normal sinus rhythm, normal axis, normal FL interval and QRS complex. There are no acute ischemic ST or T-wave changes ? Prior EKG Status the EKG is unchanged from prior EKG Diagnoses/Visit Problems: ? Polysubstance abuse: ? Chest pain: DISCHARGE DISPOSITION: ? Disposition: discharged ? Discharge Type: home CONDITION ON DISPO: ? Condition on Disposition improved MEDICATION RECONCILIATION/DISCHARGE MEDS: * Outpatient Medication Status not yet specified Attestation: CRITICAL CARE: ? Is This a Critically Ill Patient no Co-Sign/Attestation: Attestation: This is a shared visit. I have reviewed the LIP?s encounter note, approve the LIP?s documentation and provide the following additional information from my personal encounter. Shared Visit Documentation: See comments/additional findings below Comments/ Additional Findings: Dr. Gross's note: I saw this patient in room: 30 with the advanced practice provider Mr. Payne. This patient comes emergency Department with concern about his medications causing him symptomatology. This patient has polysubstance abuse including alcohol and abuse. He was discharged from a few yesterday. He is taking Wellbutrin and trazodone. Patient states today he had some funny feelings in his neck. He said he took marijuana and cocaine last night after he was discharged from the substance abuse treatment program. He has plans [facility] also [facility]. Here in emergency department his vital signs within normal. His EKG appeared normal. He has no signs of cardiac ischemia. A troponin was negative. I doubt that this patient was suffering from cardiac based on the patient's history and symptoms. The patient was satisfied with this evaluation and says that he wishes to follow up with his geriatric social work professor [facility]. I encouraged him to stay away from all drugs and alcohol and he agrees. I have personally performed and/or participated in all of the above services and procedures. I have reviewed all the nurses' notes and have confirmed their findings, and have incorporated those findings into this medical record. I have reviewed the resident history and physician finding; as well as the treatment. On my own examination I agree and incorporated in this document my own history, examination findings and clinical decision making. I have personally performed and/or participated in all of the above services and procedures. I have reviewed all the nurses' notes and have confirmed their findings, and have incorporated those findings into this medical record. I have reviewed the advanced providers history and physical finding; as well as the treatment. On my own examination I agree and incorporated in this document my own history, examination findings and clinical decision making. Electronic Signatures: Sanjay Payne (CLINICAL LIAISON-SEED PRODUCTION FIELD SUPERVISOR) (Signed 03-Aug-2017 19:02) Entered: Time Seen / ED Notes, Triage Vital Signs, History of Present Illness, Patient History, History Attestation, Vital Signs, Current Orders/Wire Threader, Diagnostic Imaging Results Review, EKG Result/Interpretation, ED Disposition (REQUIRED), Attestation Authored: Time Seen / ED Notes, Triage Vital Signs, History of Present Illness, Patient History, History Attestation, Vital Signs, Current Orders/Wire Threader, Lab Results Review, Diagnostic Imaging Results Review, EKG Result/Interpretation, ED Disposition (REQUIRED), Attestation Lux Gross) (Signed 03-Aug-2017 20:11) Authored: Lab Results Review, ED Disposition (REQUIRED), Attestation Co-Signer: Time Seen / ED Notes, Triage Vital Signs, History of Present Illness, Patient History, History Attestation, Vital Signs, Current Orders/Wire Threader, Lab Results Review, Diagnostic Imaging Results Review, EKG Result/Interpretation, ED Disposition (REQUIRED), Attestation Last Updated: 03-Aug-2017 20:11 by Lux Gross) References: 1. Data Referenced From Triage - ED 08/03/2017 01:32 PM EMR ADDON Collected: 08/03/2017 Status: F Source: DRIVER 2:06 PM [facility] REPOSITORY TYPE CODE TESTS RESULT OUT OF REFERENCE UNITS RANGE LAB EMRAC(LOIN C) ADDON CONFIRMATION REQUEST REC'D Performed By: #### EMRAD #### NO LOCATION NEEDED TH CHEST 2 VIEW PA Observed: 08/03/2017 Status: F Source: DRIVER AND [facility] 2:05 PM HOSPITALS REPOSITORY Patient Name: ZAINA DOLL STUDY: TH CHEST 2 VIEW PA AND LAT; 08/03/2017 2:05 pm INDICATION: Signs/Symptoms: Chest pain and /or palpitations. COMPARISON: 07/21/2017 ACCESSION NUMBER(S): [id number] ORDERING CLINICIAN: FRANCI DIEGO FINDINGS: The cardiomediastinal silhouette size is within normal limits. There is no focal consolidation, edema or pneumothorax. No sizeable pleural effusion. Subtle increased density in the right lower lung zone only seen on the frontal image most likely related to superimposed breast tissue. No acute osseous abnormality. IMPRESSION: 1. No radiographic evidence of acute cardiopulmonary process. I personally reviewed the images/study and resident's interpretation and I agree with the findings as stated. This study was performed , analyzed and interpreted at [facility], [place], [place]. Electronically signed by: KARINA THOMAS DO CBC AND DIFFERENTIAL Collected: 08/03/2017 Status: F Source: DRIVER 1:55 PM [facility] REPOSITORY TYPE CODE TESTS RESULT OUT OF REFERENCE UNITS RANGE LAB WBCR(LOINC 4.4 - 11.3 x10E9/L ) WBC 8.9 LAB NRBC(LOINC 0.0-0.0 /100 WBC ) NUCLEATED RBC 0.0 LAB RBCCT(LOIN 4.50 - 5.90 x10E12/L C) RBC 4.50 LAB HGB(LOINC) 13.5 - 17.5 g/dL HGB 14.4 LAB HCT(LOINC) 41.0 - 52.0 % HCT 41.8 LAB MCV(LOINC) 80 - 100 fL MCV 93 LAB MCHC2(LOIN 32.0 - 36.0 g/dL C) MCHC 34.4 LAB PLTCT(LOIN 150 - 450 x10E9/L C) PLT 309 LAB RDWCV(LOIN 11.5 - 14.5 % C) RDW-CV 14.0 LAB NEUT(LOINC 40.0 - 80.0 % ) % NEUTROPHIL 77.6 LAB IG(LOINC) 0.0 - 0.9 % % AUTOMATED 0.3 IMMATURE GRAN Result Comment: Percent differential counts (%) should be interpreted in the context of the absolute cell counts (cells/L). LAB LYMPH(LOINC) 13.0 - 44.0 % % LYMPHOCYTE 15.9 LAB MONO(LOINC) 2.0 - 10.0 % % MONOCYTE 5.5 LAB EOS(LOINC) 0.0 - 6.0 % % EOSINOPHIL 0.1 LAB BASO(LOINC) 0.0 - 2.0 % % BASOPHIL 0.6 LAB #NEUT(LOINC) 1.20 - 7.70 x10E9/L NEUTROPHIL 6.90 LAB #LYMP(LOINC) 1.20 - 4.80 x10E9/L LYMPHOCYTE 1.41 LAB #MONO(LOINC) 0.10 - 1.00 x10E9/L MONOCYTE 0.49 LAB #EOS(LOINC) 0.00 - 0.70 x10E9/L EOSINOPHIL 0.01 LAB #BASO(LOINC) 0.00 - 0.10 x10E9/L BASOPHIL 0.05 Performed By: #### CBCDF #### [facility] [id number] [place] [address] TROPONIN I Collected: 08/03/2017 Status: F Source: DRIVER 1:55 PM HOSPITALS REPOSITORY TYPE CODE TESTS RESULT OUT OF REFERENCE UNITS RANGE LAB TROP2(LOINC 0.00 - 0.03 ng/mL ) TROPONIN I <0.02 Result Comment: LESS THAN 0.04 NG/ML: NEGATIVE REPEAT TESTING IN FOUR TO SIX HOURS IF CLINICALLY INDICATED. 0.04 - 0.5 NG/ML: CONSISTENT WITH POSSIBLE CARDIAC DAMAGE AND POSSIBLE INCREASED CLINICAL RISK. SERIAL MEASUREMENTS MAY HELP ASSESS EXTENT OF MYOCARDIAL DAMAGE. >0.5 NG/ML: CONSISTENT WITH CARDIAC DAMAGE, INCREASED CLINICAL RISK AND MYOCARDIAL INFARCTION. SERIAL MEASUREMENTS MAY HELP ASSESS EXTENT OF MYOCARDIAL DAMAGE. . Note: Troponin I testing is performed using different testing methodology at [facility] than at other [facility]. Direct result comparisons should only be made within the same method. . Patients receiving more than 5 mg/day of biotin may have interference in test results. A sample should be taken no sooner than eight hours after previous dose. Contact [phone] for additional information. Performed By: #### TROP2 #### [facility] [id number] [place] [id number] COMPREHENSIVE PANEL Collected: 08/03/2017 Status: F Source: DRIVER 1:55 PM HOSPITALS REPOSITORY TYPE CODE TESTS RESULT OUT OF REFERENCE UNITS RANGE LAB GLU(LOINC) 74 - 99 mg/dL GLUCOSE 99 LAB SOD(LOINC) 136 - 145 mmol/L SODIUM 138 LAB K(LOINC) 3.5 - 5.3 mmol/L POTASSIUM 4.2 LAB CHLOR(LOIN 98 - 107 mmol/L C) CHLORIDE 99 LAB BIC(LOINC) 21 - 32 mmol/L BICARBONATE 29 LAB ANGAP(LOIN 10 - 20 mmol/L C) ANION GAP 14 LAB UREA(LOINC 6 - 23 mg/dL ) UREA NITROGEN 8 LAB CREA(LOINC 0.50 - 1.30 mg/dL ) CREATININE 0.78 LAB GFRFN(LOIN >60 mL/min/1.7 C) 3m2 GFR-NON AM. >60 LAB GFRAA(LOIN >60 mL/min/1.7 C) 3m2 GFR- AM. >60 Result Comment: CALCULATIONS OF ESTIMATED GFR ARE PERFORMED USING THE MDRD STUDY EQUATION FOR THE IDMS-TRACEABLE CREATININE METHODS. CLIN CHEM 2007;53:766-72 LAB CA(LOINC) 8.6 - 10.6 mg/dL CALCIUM 10.3 LAB ALB(LOINC) 3.4 - 5.0 g/dL ALBUMIN 5.0 LAB AP(LOINC) 33 - 120 U/L ALKALINE PHOSPHATASE 74 LAB TP(LOINC) 6.4 - 8.2 g/dL TOTAL PROTEIN 7.7 LAB AST(LOINC) 9 - 39 U/L AST 21 LAB TBILI(LOINC) 0.0 - 1.2 mg/dL BILIRUBIN,TOTAL 0.7 LAB ALT(LOINC) 10 - 52 U/L ALT 14 Result Comment: Patients treated with Sulfasalazine may generate falsely decreased results for ALT. Performed By: #### CMP #### [facility] [address] [place] [address] BNP Collected: 08/03/2017 Status: F Source: DR[facility] 1:55 HOSPITALS REPOSITORY TYPE CODE TESTS RESULT OUT OF RANGE REFERENCE UNITS LAB BNP2(LOINC) 0 - 99 pg/mL BNP 25 Result Comment: . <100 pg/mL - Heart failure unlikely 100-299 pg/mL - Intermediate probability of acute heart . failure exacerbation. Correlate with clinical . context and patient history. >=300 pg/mL - Heart Failure likely. Correlate with clinical . context and patient history. BNP testing is performed using different testing methodology at [facility] than at other [facility]. Direct result comparisons should only be made within the same method. Performed By: #### BNP2 #### [facility] [address] [place] [address] CREATINE KINASE Collected: 08/03/2017 Status: F Source: DRIVER 1:[address] [place] [address] REPOSITORY TYPE CODE TESTS RESULT OUT OF REFERENCE UNITS RANGE LAB CK(LOINC) 0 - 325 U/L CREATINE 223 KINASE Performed By: #### CK #### [facility] [address] [place] [address] TRIAGE - ED Observed: 08/03/2017 Status: UNK Source: DRIVER 1:32 HOSPITALS REPOSITORY Quick Triage: The patient and/or guardian verbally acknowledges placement for services into the following (when Urgent Care Service hours are operating): emergency department Pain: Pain Rating (0-10): Rest 7 Chart Review: CHIEF COMPLAINT ZAINA DOLL is a Male patient with a chief complaint of chest pain (States he is having throat swelling and chest pain. Just had medications changed. Speaking in full sentences with difficulty and swallow coffee without any issues.). Onset of the Complaint: 01-Aug-2017 Triage Date/Time: 03-Aug-2017 13:32 Pain Rating (0-10): Rest: 7 Pain location: chest, neck Vital Signs: Temperature: 98.6F ( 37.0C) taken forehead Blood Pressure: 134/84 Mean: Heart Rate: 102 Respiratory Rate: 16 Pulse Oximetry: 98% on room air, no respiratory support. Height: 6 feet 3.00 inches. 190.5 CM Weight: 190.0 pounds. Calculated 86.1 kg. (stated) Calculated BMI (kg/m2): 23.725 Calculated BSA (m2) 2.13 Patient immunocompromised related to: N/A Mask applied: no Patient has suicidal thoughts: no Patient has homicidal thoughts: no GEOVANNA: 3 Symptoms Are POSITIVE For: anxiety Symptoms Are Negative For: chills, diaphoresis, dyspnea, headache, loss of consciousness, nausea, numbness, tingling and weakness Chest Pain Location-Left: lower chest PAIN Pain Scale Used: ALLI Past Medical History: ? Past Medical History Reviewed yes ? Seizure Disorder: Past Medical History, from alcohol withdraw, Active ? EtOH abuse: Past Medical History, Active ? Hypertension (HTN): Past Medical History, Active ? GERD: Past Medical History, Active ? schizoaffective disorder: Past Medical History, Active Electronic Signatures: Parth Seth (RN) (Signed 03-Aug-2017 13:35) Authored: Triage, Past Medical History Last Updated: 03-Aug-2017 13:35 by Parth Seth (RN) ED PROGRESS NOTE Observed: 07/26/2017 Status: C Source: [facility] 8:56 PM [facility] REPOSITORY 1620: To ER 15 per wheelchair from the waiting room. Says he is in alchol withdrawal. Was in for same DCd 07/24. Sent to ER per [facility]. 1730: Resting quietly. No distress. 1830: Room number received. 1910: Report to [facility] RN. 1920: [facility] notified. 60 minute ETA. Pt notified. Pt. transferred to [facility] in stable condition via [facility]. Personal belongings given to ambulance staff. Safety maintained. Ambulance staff forgot paperwork. Will come back after transport. TROPONIN Collected: 07/26/2017 Status: F Source: [facility] 8:38 PM [facility] REPOSITORY Order Comment: First Troponin will be drawn STAT, Report abnormal results to Attending TYPE CODE TESTS RESULT OUT OF RANGE REFERENCE UNITS LAB [id number] 0.000-0.099 ng/mL Normal TROPONIN <0.015 Result Comment: This test is a quantitative determination of cardiac troponin I. High levels of serum biotin may interfere with this test. Performed By: #### [id number] #### [facility] [address] [place] [address] Disk Grinder: Brian Jonas MD ED PHYSICIAN REPORT Observed: 07/26/2017 Status: F Source: [facility] 6:51 PM [facility] REPOSITORY Patient: ZAINA DOLL Age: 37 years Sex: Male : 1980 Associated Diagnoses: None Author: RUBIO ELLISON DO Basic Information Time seen: Time Seen: RUBIO ELLISON DO / 07/26/2017 15:37 . History source: Patient. Arrival mode: Private vehicle. History limitation: None. History of Present Illness The patient presents with suicidal ideation. The onset was unknown. The course/duration of symptoms is unknown. Character of symptoms suicidal thoughts. Risk factors consist of alcohol abuse. Assoc iated symptoms: chest pain and shakiness. This is a 37 year old male who presents to the ED for evaluation of suicidal ideation. Pt reports he recently went through detox and that his last drink of EtOH was 10 days ago. He c/o chest pain, shaki ness, and suicidal ideation. He feels that he is a danger to himself but has no specific plan. Pt denies access to weapons or drugs. He has poor social support structure and was recently kicked out of h [facility]. Pt states he has no access to his medications. He has hx of schizophrenia. No other concerns are voiced at this time. . Review of Systems Constitutional symptoms: shakiness, no fever, no chills, no sweats, no weakness. Skin symptoms: No abrasions, Eye symptoms: Vision unchanged. ENMT symptoms: No ear pain, no sore throat. Respiratory symptoms: No shortness of breath, no cough. Cardiovascular symptoms: Chest pain, No palpitations, Gastrointestinal symptoms: No abdominal pain, no nausea, no vomiting. Genitourinary symptoms: No dysuria, Musculoskeletal symptoms: Negative except as documented in HPI, No back pain, Psychiatric symptoms: Suicidal, substance abuse. Hematologic/Lymphatic symptoms: Bleeding tendency negative, Neurologic symptoms No headache, no dizziness, no altered level of consciousness. Additional review of systems information: All other systems reviewed and otherwise negative. Health Status Allergies: Allergic Reactions (All) Severity Not Documented Morphine- No reactions were documented. Canceled/Inactive Reactions (All) Severity Not Documented NKA- No reactions were documented. No Known Allergies. Medications: (Selected) Inpatient Medications Ordered Saline Flush: 3 mL, IV Push, PRN, PRN: See Note Line Saline Flush: 3 mL, IV Push, [id number] Documented Medications Documented Geodon 40 mg oral capsule: 40 mg = 1 caps, ORAL, BID, 60 caps, 0 Refill(s) PriLOSEC: 40 mg, ORAL, BID, 0 Refill(s) busPIRone 15 mg oral tablet: 15 mg = 1 tabs, ORAL, BID, 270 tabs, 0 Refill(s) gabapentin: 800 mg, ORAL, TID, 0 Refill(s), per nurse's notes. Past Medical/ Family/ Social History Surgical history: No active procedure history items have been selected or recorded., Reviewed as documented in chart. Family history: Entire family history is negative., Reviewed as documented in chart. Problem list: Active Problems (7) ADHD (attention deficit hyperactivity disorder) Bipolar 1 disorder Manic affective disorder, recurrent episode, in full remission OCD (obsessive compulsive disorder) Schizo affective schizophrenia Suicidal ideation Tobacco abuse , per nurse's notes. Physical Examination Vital Signs Vital Signs 07/26/2017 13:22 EDT Temperature Oral 37.1 degC NORMAL Peripheral Pulse Rate 99 bpm NORMAL Respiratory Rate 18 br/min NORMAL Systolic Blood Pressure 125 mmHg NORMAL Diastolic Blood Pressure 73 mmHg NORMAL SpO2 96 % NORMAL Oxygen Therapy Room air Height/Length Dosing 190.50 cm Weight Dosing 88.6 kg Body Mass Index Dosing 24 . Per nurse's notes. General: Alert, anxious-appearing, shaking. Skin: Warm, dry, no rash. Head: Normocephalic, atraumatic. Neck: Supple, trachea midline. Eye: Pupils are equal, round and reactive to light, extraocular movements are intact. Ears, nose, mouth and throat: Oral mucosa moist. Cardiovascular: Regular rate and rhythm, No murmur, No edema. Respiratory: Lungs are clear to auscultation, respirations are non-labored, breath sounds are equal. Gastrointestinal: Soft, Nontender, Non distended, Normal bowel sounds. Back: Normal range of motion. Musculoskeletal: Normal ROM, normal strength. Psychiatric: Cooperative, Abnormal / Psychotic thoughts: Suicidal, no specific plan. Neurological Alert and oriented to person, place, time, and situation, No focal neurological deficit observed, normal sensory observed, normal motor observed, normal speech observed. Medical Decision Making Documents reviewed: Emergency department nurses' notes, flowsheet, emergency department records, prior records. Results review: Lab results : Laboratory 07/26/2017 15:14 EDT Estimated Creatinine Clearance 148.17 mL/min 07/26/2017 14:32 EDT BUN 12 mg/dL NORMAL Na 132 mmol/L LOW K 4.1 mmol/L NORMAL Chloride 96 mmol/L LOW CO2, venous 27.2 mmol/L NORMAL Glucose 97 mg/dL NORMAL Creatinine 0.8 mg/dL NORMAL Total Protein 8.2 g/dL NORMAL Calcium 9.4 mg/dL NORMAL Bilirubin, Total 0.73 mg/dL NORMAL Alk Phos 91 unit/L NORMAL GOT 23 unit/L NORMAL GPT 20 unit/L NORMAL BUN/Creat Ratio 15.1 NA Calculated Osmolality 264 mOsm/kg LOW Globulin 4.0 g/dL NA A/G Ratio 1.0 NA ALB 4.2 g/dL NORMAL Date Last Dose ukn Date Last Dose ukn Time Last Dose ukn Time Last Dose ukn Acetaminophen <2.0 ug/ml LOW Salicylate <1.7 mg/dL LOW Alcohol, Serum <3 mg/dL NA TROPONIN <0.015 ng/mL NORMAL Glomerular Filtration Rate >60 mL/min/1.73m? NA GFR AA >60 NA Protime Patient 11.4 seconds NORMAL INR 1.1 NA APTT Patient 26.4 seconds NORMAL WBC 6.5 x10 RBC 4.37 x10 HGB 14.3 g/dL NORMAL HCT 42.0 % NORMAL MCV 96.3 fL NORMAL MCH 32.8 pg NORMAL MCHC 34.1 g/dL NORMAL RDW 15.1 HI Platelet 305 x1000 NORMAL MPV 7.3 fL LOW Nucleated RBC 0 /100WBC NA Lymph % 10.3 % NA [place] % 7.4 % NA Neutrophil % 81.8 % NA Eosin % 0.0 % NA Basos % 0.5 % NA Lymph Count 0.67 x1000 LOW [place] Count 0.48 x1000 NORMAL Neutrophil Count (ANC) 5.34 x1000 NORMAL Eos Count 0.00 x1000 NORMAL Baso Count 0.03 x1000 NORMAL 07/26/2017 13:19 EDT Color, U Shannan Appearance, U Hazy Specific Greenleaf, U 1.029 NORMAL pH, U 5.0 NORMAL Protein, U Negative Glucose Qual, U Negative Ketones, U 20 mg/dl Bilirubin, U Negative Blood, U Negative Urobilinogen Qual, U 2.0 mg/dl Nitrite, U Negative Leukocyte Esterase, U Negative RBC/HPF, U 1 #/HPF NORMAL WBC/HPF, U 1 #/HPF NORMAL Mucous, U Few Amphetamines, U Negative Barbituates, U Negative PCP, U Negative Benzodiazepines, U Positive Cocaine, U Negative THC, U Positive Opiates, U Negative Ecstasy, U Negative . Radiology results: Result type: CHEST 2V (PA/LAT) Result date: July 26, 2017 13:32 EDT Result status: (Final) Result title: XR CHEST 2V PA LAT Performed by: RANDY GRIJALVA MD on July 26, 2017 14:13 EDT Verified by: RANDY GRIJALVA MD on July 26, 2017 14:13 EDT Encounter info: [id number], [facility], Inpatient, 07/26/2017 - * Final Report * Reason For Exam CHEST PAIN XR CHEST 2V PA LAT FINAL REPORT EXAM: XR CHEST 2V PA LAT HISTORY: CHEST PAIN TECHNIQUE: Frontal and lateral views of the chest. PRIORS: Chest x-ray December 07, 2015. FINDINGS: Cardiac silhouette is within normal limits. There is no effusion. There is no pneumothorax. There is no consolidation. There are no suspicious osseous lesions. IMPRESSION: No acute cardiopulmonary findings. Signature Line Technologist: WINNIE JUSTIN,CMB Dictated By: RANDY GRIJALVA MD Signed By: RANDY GRIJALVA MD Signed Out: 07/26/17 14:13:50 . Notes: MEDICAL CLEARANCE FOR PSYCHIATRIC EVALUATION: No clinical evidence of drug-induced psychosis, meningitis, encephalitis, sepsis, thyroid disease, hypoglycemia, withdrawal syndrome, hypoxemia, electrolyte disturbance, CVA/TIA, seizures, or traumatic brain injury. Reexamination/ Reevaluation Notes: Discussed today's findings, in addition to providing specific details for the plan of care and counseling regarding the diagnosis, prognosis, and need for admission. Questions were answered, Agustina ent is a 37-year-old male present emergency department for complaints of suicidal ideations and being as well being without his psychiatric medications. Labwork was obtained. Patient was complaining o f some chest pain as well. Troponin is negative. No leukocytosis. Patient did test positive for marijuana and benzodiazepines. Patient was recently a hospital for alcohol withdrawal. Chest x-ray is negative. Discussed the case with [facility] counselors and will admit to [facility] for further evaluation for The suicidal ideations. Patient was able to sign voluntary for admission.. Impression and Plan Plan Disposition: Admit time 07/26/2017 17:26:00, HEIDY CAMEJO DO, Pt is being admitted to inpatient at [facility]. Anticipate care over 2 MN w/ exceptions. Counseled: Patient, Regarding diagnosis, Regarding diagnostic results, Regarding treatment plan, Patient indicated understanding of instructions. Notes: I, Connie Wolfe, am scribing for and in the presence of Dr. Rubio Ellison DO. Scribe Signature: Keren Wilson, 07/26/2017 15:58 , I personally performed the services describe d in the documentation, reviewed and edited the documentation which was dictated to the scribe in my presence, and it accurately records my words and actions.. RUBIO ELLISON DO on 07/26/2017 18:51 CREDIT CONSULTANT Observed: 07/26/2017 Status: F Source: [facility] 5:46 PM [facility] REPOSITORY clinical info and facesheet faxed to [facility] ALCOHOL SERUM Collected: 07/26/2017 Status: F Source: [facility] 5:24 PM [facility] REPOSITORY TYPE CODE TESTS RESULT OUT OF RANGE REFERENCE UNITS LAB [id number] mg/dL Normal <3 Alcohol, Serum Result Comment: Note: Alcohol values performed at [facility] are performed on Serum and reported in mg/dl, which is different then the state reporting units of g/dl which is performed on whole blood. Result reporting units are based on test methodology and are not interchangable. Performed By: #### [id number], [id number], [id number], 918104, 381036, [id number], [id number] #### [facility] [address] [place], [place] [id number] Disk Grinder: Brian Jonas MD ACETAMIN LEVEL Collected: 07/26/2017 Status: P Source: [facility] 5:24 PM [facility] REPOSITORY TYPE CODE TESTS RESULT OUT OF REFERENCE UNITS RANGE LAB [id number] 10.0-30.0 ug/ml Acetaminophen Low <2.0 Performed By: #### [id number], [id number], 141546, 043625, 183521, 8153638, 124201 #### [facility] [address] [place], [place] [id number] Disk Grinder: Brian Jonas MD SALICYLATE LEVEL Collected: 07/26/2017 Status: F Source: [facility] 4:41 PM [facility] REPOSITORY TYPE CODE TESTS RESULT OUT OF REFERENCE UNITS RANGE LAB [id number] 2.8-20.0 mg/dL Low Salicylate <1.7 Performed By: #### [id number] #### [facility] [address] [place], [place] [id number] Disk Grinder: Brian Jonas MD TROPONIN Collected: 07/26/2017 Status: F Source: [facility] 3:14 PM [facility] REPOSITORY TYPE CODE TESTS RESULT OUT OF RANGE REFERENCE UNITS LAB 230487 0.000-0.099 ng/mL Normal TROPONIN <0.015 Result Comment: This test is a quantitative determination of cardiac troponin I. High levels of serum biotin may interfere with this test. Performed By: #### [id number], [id number], 372418, 654892, 208031, [id number], 155033 #### [facility] [address] [place], [place] [id number] Disk Grinder: Brian Jonas MD PT INR Collected: 07/26/2017 Status: F Source: [facility] 2:58 PM [facility] REPOSITORY TYPE CODE TESTS RESULT OUT OF RANGE REFERENCE UNITS LAB 8208(LOINC) Normal INR 1.1 Result Comment: Normal reference range for INR on patients not on anticoagulant therapy: 0.9-1.1. General therapeutic range for patients on anticoagulant therapy: 2.0-3.5. LAB [id number](LOINC) 9.8-12.7 seconds Normal Protime Patient 11.4 Performed By: #### 440037, 0632683, 454010, 238479, 854416, 2829594, 089539 #### [facility] [address] [place] [address] Disk Grinder: Brian Jonas MD APTT Collected: 07/26/2017 Status: F Source: [facility] 2:58 PM [facility] REPOSITORY TYPE CODE TESTS RESULT OUT OF RANGE REFERENCE UNITS LAB 8541471(LO 25.0-36.0 seconds INC) Normal APTT Patient 26.4 Performed By: #### 655398, 1854341, 974387, 452040, 295748, 7546745, 267584 #### [facility] [address] [place], [place] [address] Disk Grinder: Brian Jonas MD AUTO DIFF Collected: 07/26/2017 Status: F Source: [facility] 2:47 [facility] REPOSITORY TYPE CODE TESTS RESULT OUT OF REFERENCE UNITS RANGE LAB 2172005 0.00-0.50 x1000 Eos Normal Count 0.00 LAB 4387181 0.10-1.00 x1000 [place] Normal Count 0.48 LAB 8503310 % [place] % Normal 7.4 LAB 4645449 % Lymph % Normal 10.3 LAB 6361857 1.20-4.80 x1000 Low Lymph Count 0.67 LAB 5166718 1.40-8.80 x1000 Normal Neutrophil Count 5.34 (ANC) LAB 3251758 % Normal Neutrophil % 81.8 LAB 5822074 0.00-0.20 x1000 Baso Normal Count 0.03 LAB 8248025 % Basos % Normal 0.5 LAB 3275698 % Eosin % Normal 0.0 Performed By: #### 061408, 8125247, 952268, 766701, 426992, 4689719, 377520 #### [facility] [address] [place], [place] [address] Disk Grinder: Brian Jonas MD HEMO Collected: 07/26/2017 Status: F Source: [facility] 2:47 [facility] REPOSITORY TYPE CODE TESTS RESULT OUT OF RANGE REFERENCE UNITS LAB [id number](KAREN NC) Normal Instr WBC 6.5 LAB 8618 11.5-14.5 High RDW 15.1 LAB 8611 4.70-6.10 x10 Low RBC 4.37 Result Comment: Note: RBC morphology is normal unless otherwise stated. Evaluation performed only if differential is requested. LAB 8129 41.0-52.0 % HCT Normal 42.0 LAB 8314 32.0-37.0 g/dL MCHC Normal 34.1 LAB 8313 27.0-34.0 pg MCH Normal 32.8 LAB 8315 80.0-100.0 fL MCV Normal 96.3 LAB 8986 4.5-11.0 x10 WBC Normal 6.5 LAB 8153 13.5-17.5 g/dL HGB Normal 14.3 LAB 97235236 /100WBC Normal Nucleated RBC 0 LAB 8340 7.4-10.4 fL Low MPV 7.3 LAB 1850566 150-450 x1000 Normal Platelet 305 LAB 8272101(LOINC) DIFF? Normal No Performed By: #### 422819, 1759370, 277363, 642095, 540639, 8418868, 595312 #### [facility] [address] [address] Disk Grinder: Brian Jonas MD XR CHEST 2V PA LAT Observed: 07/26/2017 Status: F Source: [facility] 2:13 PM [facility] REPOSITORY FINAL REPORT EXAM: XR CHEST 2V PA LAT HISTORY: CHEST PAIN TECHNIQUE: Frontal and lateral views of the chest. PRIORS: Chest x-ray December 07, 2015. FINDINGS: Cardiac silhouette is within normal limits. There is no effusion. There is no pneumothorax. There is no consolidation. There are no suspicious osseous lesions. IMPRESSION: No acute cardiopulmonary findings. Technologist: WINNIE JUSTIN,CMB Dictated By: RANDY GRIJALVA MD Signed By: RANDY GRIJALVA MD Signed Out: 07/26/17 14:13:50 U DOA Collected: 07/26/2017 Status: F Source: [facility] 2:11 PM [facility] REPOSITORY TYPE CODE TESTS RESULT OUT OF RANGE REFERENCE UNITS LAB [id number] Normal Negative Opiates, U LAB 6171394 Normal THC, Positive U LAB 7966059 Normal Negative Amphetamine s, U Result Comment: Urine for Drugs of Abuse tests (U Amphetamines, U Barbituates, U PCP, U Benzodiazepines, U Cocaine, U THC, U Opiates & U Ecstasy)provide preliminary test results only. A more specif ic alternate method must be used in order to obtain a confirmed analytical result. Gas chromatography/mass spectrometry is the preferred confirmatory method. Clinical consideration and professional ju dgment should be applied to any drug of abuse test result, particularly when preliminary positive results are used. Urine for Drugs of Abuse Tiller Levels: Barbiturate 200 ng/ml PCP 25 ng/ml Cocaine 300 ng/ml Opiates 2000 ng/ml Amphetamines 1000 ng/ml Benzodiazepines 200 ng/ml THC 50 ng/ml EXTC 500 ng/ml LAB 8256158 Normal Cocaine, U Negative LAB 2076214 Normal Benzodiazepines, Positive U LAB 35533923 Normal Ecstasy, U Negative LAB 9165815 Normal Barbituates, U Negative LAB 2798443 Normal PCP, U Negative Performed By: #### [id number] #### [facility] [address] [place] [address] Disk Grinder: Brian Jonas MD UA Collected: 07/26/2017 Status: F Source: [facility] 2:04 PM [facility] REPOSITORY TYPE CODE TESTS RESULT OUT OF RANGE REFERENCE UNITS LAB [id number] 0-5 #/HPF WBC/HPF, U Normal 1 LAB 6071027 Negative Ketones, U Abnormal 20 mg/dl LAB 8867566 0-3 #/HPF RBC/HPF, U Normal 1 LAB 9533190 Negative Bilirubin, Normal U Negative LAB 1494392 Negative Leukocyte Normal Esterase, U Negative LAB 6164614 Negative Glucose Normal Qual, U Negative LAB 4091239 Negative Nitrite, U Normal Negative LAB 0276555 Appearance, Normal U Hazy LAB 8942583 Negative Blood, U Normal Negative LAB 2503290 <2.0 mg/dl Abnormal Urobilinogen 2.0 mg/dl Qual, U Result Comment: EU/dl and mg/dl are equivalent units. LAB 5911745 Shannan Normal Color, U LAB 6739917 Negative Normal Protein, U Negative LAB 7054492 Few Normal Mucous, U LAB 1480001 1.001-1.035 1.029 Normal Specific Green[place], U LAB 1043525 4.5-8.0 5.0 Normal pH, U LAB 1303693 U Not Normal MICRO Indicated Performed By: #### [id number] #### [facility] [address] [place] [address] Disk Grinder: Brian Jonas MD DISCHARGE SUMMARY Observed: 07/24/2017 Status: COMPLETED Source: DR[facility] 3:35 PM HOSPITALS REPOSITORY Send Summary: Discharge Summary Providers: Provider Role Provider Name ? Referring Franci Bearden ? Primary Jose R Ramos ? Attending Ninfa Godfrey Note Recipients: Jose R Ramos MD - [id number] [] Franci Bearden MD Discharge: Summary: Admission Date: .21-Jul-2017 20:44:00 Discharge Date: 24-Jul-2017 Attending Physician at Discharge: Ninfa Godfrey Admission Reason: alcohol withdrawal(1) Final Discharge Diagnoses: Alcohol use disorder, moderate, dependence, Alcohol withdrawal, Schizoaffective disorder, Procedures: None Condition at Discharge: Satisfactory Disposition at Discharge: .Home Vital Signs: T P R BP SpO2 Value 36.6 91 17 120/56 98% Date/Time 07/24 12:07/24 12:00 07/24 12:00 07/24 12:07/24 12:00 Range (36.1C - 36.7C ) (78 - 97 ) (16 - 18 ) (112 - 123 )/ (56 - 81 ) (96% - 99% ) Physical Exam: Physical examination on the day of discharge. Chest bilaterally clear. No rales, no wheeze. Cardiovascular S1, S2 normal. GI soft, nontender, no organomegaly. Bowel sounds present in all 4 quadrants. Extremities Pulse +, Edema negative. Skin no rash. Mood appropriate. Neurological no focal neurological deficits. Hospital Course: 37yr old WM with h/o schizoaffective disorder, polysubstance abuse, (Alcohol/ Cocaine and smoking), recently admitted to [facility], signed out AMA presented to the ED with concerns for alcohol withdrawal. In the ED, he was afebrile, BP: 140/91, FL: 86, RR:16, O2 sat : 99% on RA. Labs with no significant abn, Trop 0.04, EKG with NSR< no acute ST/ T wave changes. BAL <10. Urine drug screen positive for cannabis and cocaine. CXR neg for acute pathology. CIWA scores 14-2. Admitted to medicine for further management. Patient was seen in consultation with psychiatry and was monitored on CIWA. We continued thiamine, folic acid. Patient scored less than 4 on CIWA on the day of discharge. Patient was given rehabilitation resources list on discharge. Patient had type II GA secondary acute due to cocaine abuse. On the day of discharge, patient was alert, oriented ?3 and was not in withdrawal. Discharge Information: and Continuing Care: Discharge Instructions: Activity: activity as tolerated. May shower.. Nutrition/Diet: regular Additional Orders: Additional Instructions: Please call primary care physician for appointment Follow Up Appointments: Follow-Up Appointment 01: Physician/Dept/Service: Primary care physician Reason for Referral: Post hospital discharge Call to Schedule in: 2 weeks Follow-Up Appointment 02: Physician/Dept/Service: Psychiatry, Recovery Resources Call to Schedule in: 2 weeks Discharge Medications: Home Medication gabapentin 400 mg oral capsule - 2 cap(s) orally 3 times a day busPIRone 10 mg oral tablet - 1.5 tab(s) orally every 12 hours pantoprazole 40 mg oral delayed release tablet - 1 tab(s) orally 2 times a day Geodon 40 mg oral capsule - 1 cap(s) orally 2 times a day Multiple Vitamins with Minerals oral tablet - 1 tab(s) orally once a day folic acid 1 mg oral tablet - 1 tab(s) orally once a day thiamine 100 mg oral tablet - 1 tab(s) orally once a day PRN Medication Lab Results - Pending: None Radiology Results - Pending: None Signature/Cosignature/Attestation: Comments/ Additional Findings More than 30 minutes were spent in discharge management that included evaluation of the patient,review of labs, radiology, discharge medications, follow-up advice and preparing this discharge summary. Electronic Signatures: Ninfa Godfrey) (Signed 24-Jul-2017 15:53) Authored: Send Summary, Summary Content, Ongoing Care, Signature/Cosignature/Attestation Last Updated: 24-Jul-2017 15:53 by Ninfa Godfrey) References: 1. Data Referenced From Consult - Psychiatry 07/22/2017 12:51 PM MAGNESIUM Collected: 07/24/2017 Status: F Source: DRIVER 8:01 [facility] REPOSITORY TYPE CODE TESTS RESULT OUT OF REFERENCE UNITS RANGE LAB MG(LOINC) 1.60 - 2.40 mg/dL MAGNESIUM 2.13 Performed By: #### MG #### [facility] [id number] [place] [address] HEPATIC FUNCTION Collected: 07/24/2017 Status: F Source: [facility] 8:01 AM [facility] REPOSITORY TYPE CODE TESTS RESULT OUT OF REFERENCE UNITS RANGE LAB ALB(LOINC) 3.4 - 5.0 g/dL ALBUMIN 4.0 LAB TBILI(LOIN 0.0 - 1.2 mg/dL C) BILIRUBIN,TOTAL 0.3 LAB DBILI(LOIN 0.0 - 0.3 mg/dL C) BILIRUBIN,DIRECT 0.1 LAB AP(LOINC) 33 - 120 U/L ALKALINE PHOSPHATASE 84 LAB ALT(LOINC) 10 - 52 U/L ALT 11 Result Comment: Patients treated with Sulfasalazine may generate falsely decreased results for ALT. LAB AST(LOINC) 9 - 39 U/L AST 12 LAB TP(LOINC) 6.4 - 8.2 g/dL TOTAL PROTEIN 6.8 Performed By: #### HEPFP #### [facility] [id number] [place] [id number] RENAL FUNCTION PANEL Collected: 07/24/2017 Status: F Source: DRIVER 8:01 AM HOSPITALS REPOSITORY TYPE CODE TESTS RESULT OUT OF REFERENCE UNITS RANGE LAB GLU(LOINC) 74 - 99 mg/dL GLUCOSE 77 LAB SOD(LOINC) 136 - 145 mmol/L SODIUM 141 LAB K(LOINC) 3.5 - 5.3 mmol/L POTASSIUM 4.3 LAB CHLOR(LOIN 98 - 107 mmol/L C) CHLORIDE 103 LAB BIC(LOINC) 21 - 32 mmol/L BICARBONATE 28 LAB ANGAP(LOIN 10 - 20 mmol/L C) ANION GAP 14 LAB UREA(LOINC 6 - 23 mg/dL ) UREA NITROGEN 17 LAB CREA(LOINC 0.50 - 1.30 mg/dL ) CREATININE 0.65 LAB GFRFN(LOIN >60 mL/min/1.7 C) 3m2 GFR-NON AM. >60 LAB GFRAA(LOIN >60 mL/min/1.7 C) 3m2 GFR- AM. >60 Result Comment: CALCULATIONS OF ESTIMATED GFR ARE PERFORMED USING THE MDRD STUDY EQUATION FOR THE IDMS-TRACEABLE CREATININE METHODS. CLIN CHEM 2007;53:766-72 LAB CA(LOINC) 8.6 - 10.6 mg/dL CALCIUM 9.6 LAB PHOS(LOINC) 2.5 - 4.9 mg/dL PHOSPHORUS 4.2 Result Comment: The performance characteristics of phosphorus testing in heparinized plasma have been validated by the individual laboratory site where testing is performed. Testing on heparinized plasma is not approved by the FDA; however, such approval is not necessary. LAB ALB(LOINC) 3.4 - 5.0 g/dL ALBUMIN 4.0 Performed By: #### RENAL #### [facility] [id number] [place] [address] DAILY PROGRESS Observed: 07/23/2017 Status: COMPLETED Source: UNIVERSITY NOTE-MEDICINE 1:39 PM HOSPITALS REPOSITORY Service: Medicine Subjective Data: ZAINA DOLL is a 37 year old Male who is Hospital Day # 3. Reports to feeling OK, no acute overnight events. No chest pain, SOB. No AH/VH, states mood is OK. Objective Data: Objective Information: T P R BP SpO2 Value 36.5 79 18 113/72 97% Date/Time 07/23 12:00 07/23 12:00 07/23 12:00 07/23 12:00 07/23 12:00 Range (36.5C - 37.7C ) (70 - 100 ) (18 - 19 ) (105 - 113 )/ (67 - 77 ) (95% - 98% ) Highest temp of 37.7 C was recorded at 07/22 18:16 Pain at Rest reported at 07/23 7:30: 0 Physical Exam: Constitutional: Resting in bed, no distress, AAOX3 Respiratory/Thorax: b/l air entry, clear, no wheeze, no rales. Cardiovascular: S1 S2 regular rate, rhythm, no murmurs, rubs, gallops. Gastrointestinal: Soft, no tenderness, ND, BS+ Extremities: No pedal edema, palpable pulses. Neurological: AAOx3, moves all extremities, very faint tremors+ Psychological: Flat affect Skin: multiple tattoos on his chest/ upper extremities +sweating Medication: Medications: Continuous Medications No continuous medications are active Scheduled Medications 1. busPIRone: 15 mg Oral Every 12 Hours 2. Folic Acid: 1 mg Oral Daily 3. Gabapentin: 400 mg Oral 3 Times a Day 4. Multivitamin with Minerals: 1 tablet(s) Oral Daily 5. Pantoprazole: 40 mg Oral Daily 6. Thiamine: 100 mg Oral Daily 7. Ziprasidone: 40 mg Oral 2 Times a Day PRN Medications 1. LORazepam: 0.5 mg Oral Every 2 Hours 2. LORazepam: 1 mg Oral Every 2 Hours 3. LORazepam: 2 mg Oral Every 2 Hours Recent Lab Results: Results: I have reviewed these laboratory results: Troponin I, Serum Trending View Result 22-Jul-2017 15:32:00 22-Jul-2017 05:42:00 Troponin I, Serum <0.02 0.02 Drug Screen, Urine 22-Jul-2017 12:48:00 Result Value Amphetamine Level, Urine NEGATIVE Barbiturate Screen, Urine NEGATIVE Benzodiazepines, Urine POSITIVE A Cannabinoid Screen, Urine POSITIVE A Cocaine Metabolite Screen, Urine POSITIVE A Methadone Level, Urine NEGATIVE Oxycodone Level, Urine NEGATIVE Opiates, Urine NEGATIVE Phencyclidine, Urine NEGATIVE Comments. SEE BELOW POSITIVE CUTOFFS ARE BASED ON REACTIVITY WITH A LOCKSMITH HELPER MEMBER OF DRUG CLASS. MEMBERS OF THE SAME CLASS OF DRUG MAY HAVE DIFFERING REACTIVITY WITH THE ASSAY AND THEREFORE MAY NEED TO BE PRESENT IN HIGHER CONCENTRATIONS TO GE Complete Blood Count + Differential 22-Jul-2017 01:01:00 Result Value White Blood Cell Count 8.0 Nucleated Erythrocyte Count 0.0 Red Blood Cell Count 4.35 L HGB 14.1 HCT 40.5 L MCV 93 MCHC 34.8 PLT 301 RDW-CV 14.6 H Neutrophil % 65.1 Immature Granulocytes % 0.5 Lymphocyte % 24.9 Monocyte % 8.5 Eosinophil % 0.4 Basophil % 0.6 Neutrophil Count 5.18 Lymphocyte Count 1.98 Monocyte Count 0.68 Eosinophil Count 0.03 Basophil Count 0.05 Radiology Results: Results: No Results have been selected. Please select Results from the Available Results list before marking as Reviewed. Conclusion: Electrocardiogram 12 Lead [Jul 22 2017 10:50AM] Impression: No acute cardiopulmonary process. Xray Chest 2 View PA + Lateral [Jul 21 2017 11:11PM] Assessment and Plan: Assessment: 37yr old WM with h/o schizoaffective disorder, polysubstance abuse, (Alcohol/ Cocaine and smoking), GERD/ Gastritis recently admitted to [facility], signed out AMA presented to the ED with concerns for alcohol withdrawal. Alcohol abuse/ withdrawal CIWA scores 0-5 past 24 hours, received few doses of Ativan. Still with some perspiration/ tremors, given his prior history of complicated withdrawal/ seizures, will be monitored for another day, as per Chem dep input. Appreciate input, patient encouraged to call rehab places for placement. Cont CIWA, thiamine, folic acid. Troponin elevation, type 2 GA, likely due to Cocaine. Trended down, no active chest pain. EKG with no acute changes. No need to trend troponin further. Denied any hemoptysis. Neuropathy, cont gabapentin. Schizoaffective disorder, no acute issues Cont meds. GERD: cont PPI. DVT prophylaxis: scd's. Dispo: Likely home in AM, if remains stable. Electronic Signatures: Sindhu Mayorga) (Signed 23-Jul-2017 13:49) Authored: Service, Subjective Data, Objective Data, Assessment and Plan, Signature/Cosignature/Attestation Last Updated: 23-Jul-2017 13:49 by Sindhu Mayorga) DAILY PROGRESS NOTE - Observed: 07/23/2017 Status: COMPLETED Source: DRIVER PSYCHIATRY 12:05 PM HOSPITALS REPOSITORY Subjective Data: ZAINA DOLL is a 37 year old Male who is Hospital Day # 3. Interviewed at bedside. Reports things are going well, stable mood, med compliant, intents to pursue treatment for alcoholism, talked about either he or his social working calling [facility] for intake. Had no questions for me. No evidence of hallucinations or suicidal ideation. Diaphoretic. Reports good sleep last evening and good appetite. Was receptive to idea that his episodes of chest pain are related to cocaine use. Objective: Objective Information: T P R BP SpO2 Value 36.9 84 18 109/67 98% Date/Time 07/23 8:05 07/23 8:05 07/23 8:05 07/23 8:05 07/23 8:05 Range (36.5C - 37.7C ) (70 - 100 ) (18 - 19 ) (105 - 113 )/ (67 - 77 ) (95% - 98% ) Highest temp of 37.7 C was recorded at 07/22 18:16 Mental Status Exam: General: male, sitting up in bed, in casual attire, diaphoretic Appearance: Tattoos located on his neck, and arms Attitude: Cooperative Behavior: Maintains good eye contact, appropriate Motor Activity: No tremors noted Speech: Soft spoken, fluent, direct Mood: fine Affect: blunted, likely baseline Thought Process: Linear Thought Content: No suicidal or homicidal ideations Thought Perception: No hallucinations at this time Cognition: Grossly intact Insight: Recognizes he has a problem with his substance use Judgment: Is able to make informed decisions on his own Medications: Continuous Medications No continuous medications are active Scheduled Medications 1. busPIRone: 15 mg Oral Every 12 Hours 2. Folic Acid: 1 mg Oral Daily 3. Gabapentin: 400 mg Oral 3 Times a Day 4. Multivitamin with Minerals: 1 tablet(s) Oral Daily 5. Pantoprazole: 40 mg Oral Daily 6. Thiamine: 100 mg Oral Daily 7. Ziprasidone: 40 mg Oral 2 Times a Day PRN Medications 1. LORazepam: 0.5 mg Oral Every 2 Hours 2. LORazepam: 1 mg Oral Every 2 Hours 3. LORazepam: 2 mg Oral Every 2 Hours Recent Lab Results: Results: I have reviewed these laboratory results: Drug Screen, Urine 22-Jul-2017 12:48:00 Result Value Amphetamine Level, Urine NEGATIVE Barbiturate Screen, Urine NEGATIVE Benzodiazepines, Urine POSITIVE A Cannabinoid Screen, Urine POSITIVE A Cocaine Metabolite Screen, Urine POSITIVE A Methadone Level, Urine NEGATIVE Oxycodone Level, Urine NEGATIVE Opiates, Urine NEGATIVE Phencyclidine, Urine NEGATIVE Comments. SEE BELOW POSITIVE CUTOFFS ARE BASED ON REACTIVITY WITH A LOCKSMITH HELPER MEMBER OF DRUG CLASS. MEMBERS OF THE SAME CLASS OF DRUG MAY HAVE DIFFERING REACTIVITY WITH THE ASSAY AND THEREFORE MAY NEED TO BE PRESENT IN HIGHER CONCENTRATIONS TO GE Complete Blood Count + Differential 22-Jul-2017 01:01:00 Result Value White Blood Cell Count 8.0 Nucleated Erythrocyte Count 0.0 Red Blood Cell Count 4.35 L HGB 14.1 HCT 40.5 L MCV 93 MCHC 34.8 PLT 301 RDW-CV 14.6 H Neutrophil % 65.1 Immature Granulocytes % 0.5 Lymphocyte % 24.9 Monocyte % 8.5 Eosinophil % 0.4 Basophil % 0.6 Neutrophil Count 5.18 Lymphocyte Count 1.98 Monocyte Count 0.68 Eosinophil Count 0.03 Basophil Count 0.05 Comprehensive Metabolic Panel 21-Jul-2017 22:52:00 Result Value Glucose, Serum 92 NA 136 K 4.3 CL 99 Bicarbonate, Serum 23 Anion Gap, Serum 18 BUN 11 CREAT 0.65 GFR-Non >60 GFR- >60 Calcium, Serum 10.2 ALB 4.7 ALKP 86 T Pro 7.9 T Bili 0.7 Alanine Aminotransferase, Serum 12 Aspartate Transaminase, Serum 20 Assessment and Plan: Assessment: Patient is a 37 year old male with history of alcohol use disorder, schizoaffective disorder or bipolar disorder, admitted for alcohol withdrawal. Psychiatry consulted for chemical dependency. Reports psychiatric stability on current medication regimen, and he is well-established with followup at his [facility]. Reports motivation for cessation, emphasized to patient that [facility] is a facility which has multiple resources to help with alcohol dependence. Patient conveyed understanding and repots intention to follow-through on pursuing treatment. as of 07/23/17, patient is psychiatrically stable, with no mood or psychotic symptoms. Discussing pursuing treatment at [facility], has involved geriatric social work professor and plans to call himself as well. Assessment: ETOH use disorder moderate ETOH withdrawal Schizoaffective disorder Recommendations: -No indication for psychiatric hospitalization or psychiatric 1:1 -Continue premorbid psychiatric medication regimen -Follow up at [facility] as scheduled, patient reports it is on August 01, he lives at a long term and has transportation. -Provided with substance abuse treatment resources in [facility] -Discussed case with Dr. Hodges -Sign off, please call with questions [phone]. Medication Consent: Medication Consent: no medication changes necessary for review. Signature/Cosignature/Attestation: Attending Attestation I saw and evaluated the patient. I personally obtained the goodwin and critical portions of the history and physical exam or was physically present for goodwin and critical portions performed by the resident/fellow. I reviewed the resident/fellow?s documentation and discussed the patient with the resident/fellow. I agree with the resident/fellow?s medical decision making as documented in the resident/fellow?s note with the exception/addition of the following: I personally evaluated the patient (as noted in the above attestation) on 23-Jul-2017 Comments/ Additional Findings Patient seen this AM; sitting EOB, making phonecall to treatment center (got their fax number so detox records could be faxed from here). States that he feels shaky and hot (noted to be sweating and shaky); denies these problems at home. Reports that he has had visitors last night, and enjoyed it. MSE as above. Agree with ETOH use disorder and ETOH withdrawal; management as above, I did inform primary team about patient having fax number for records. Patient has all resource lists and verbalizes a desire to get treatment and remain sober. No further acute psych recs, will sign off. Please page [phone] PRN questions. Electronic Signatures: Stephy Hodges) (Signed 23-Jul-2017 14:23) Authored: Signature/Cosignature/Attestation Co-Signer: Subjective Data, Objective, Assessment and Plan, Medication Consent, Signature/Cosignature/Attestation Opal Chambers (Resident)) (Signed 23-Jul-2017 12:34) Authored: Subjective Data, Objective, Assessment and Plan, Medication Consent, Signature/Cosignature/Attestation Last Updated: 23-Jul-2017 14:23 by Stephy Hodges) DISCHARGE PROFILE2 Observed: 07/23/2017 Status: [facility] Source: DRIVER 10:22 AM HOSPITALS REPOSITORY Discharge Orders: Anticipated Discharge Date: ? Anticipated Discharge Date 24-Jul-2017 Problem List: Additional Dx: ? Alcohol use disorder, moderate, dependence: Catalog Name: Alcohol dependence, uncomplicated ? Schizoaffective disorder: Catalog Name: Schizoaffective disorder, unspecified ? Alcohol use with intoxication: Catalog Name: Alcohol use, unspecified with intoxication, unspecified Prelim Disch Dx: ? Alcohol withdrawal: Catalog Name: Alcohol dependence with withdrawal, unspecified Significant Events: EtOH abuse: Past Medical History Hypertension (HTN): Past Medical History GERD: Past Medical History schizoaffective disorder: Past Medical History Hospital Providers: Provider Role Provider Name ? Primary Jose R Ramos ? Attending Sindhu Mayorga DNAR: ? DNAR Status none Activity: activity as tolerated. May shower. Diet: ? Diet regular Additional Orders: ? Additional Instructions Please call primary care physician for appointment Call Provider If (Homegoing Patients): Temperature is greater than 102 degrees. Chills. Any new concerning symptoms. Increasing tremors, hallucinations. Provider FINAL REVIEW of Orders: Final Review: ? Final Review of Medication Reconciliation and Orders Completed by Physician ? Reviewing Provider Ninfa Godfrey MD at 24-Jul-2017 15:50:19 Appointments: Follow-Up Appointment 01: ? Physician/Dept/Service Primary care physician ? Reason for Referral Post hospital discharge ? Call to Schedule in 2 weeks ? Comments Please call for appointment Follow-Up Appointment 02: ? Physician/Dept/Service Psychiatry, Recovery Resources ? Call to Schedule in 2 weeks ? Comments Please call for appointment Electronic Signatures: Ninfa Godfrey) (Signed 24-Jul-2017 15:50) Authored: Discharge Orders, Provider FINAL REVIEW of Orders Sindhu Mayorga) (Signed 23-Jul-2017 10:24) Authored: Discharge Orders, Provider FINAL REVIEW of Orders, Appointments, Gold Form - Hay Stacker Summary Last Updated: 24-Jul-2017 15:50 by Ninfa Godfrey) TROPONIN I Collected: 07/22/2017 Status: F Source: DRIVER 3:32 PM HOSPITALS REPOSITORY TYPE CODE TESTS RESULT OUT OF REFERENCE UNITS RANGE LAB TROP2(LOINC 0.00 - 0.03 ng/mL ) TROPONIN I <0.02 Result Comment: LESS THAN 0.04 NG/ML: NEGATIVE REPEAT TESTING IN FOUR TO SIX HOURS IF CLINICALLY INDICATED. 0.04 - 0.5 NG/ML: CONSISTENT WITH POSSIBLE CARDIAC DAMAGE AND POSSIBLE INCREASED CLINICAL RISK. SERIAL MEASUREMENTS MAY HELP ASSESS EXTENT OF MYOCARDIAL DAMAGE. >0.5 NG/ML: CONSISTENT WITH CARDIAC DAMAGE, INCREASED CLINICAL RISK AND MYOCARDIAL INFARCTION. SERIAL MEASUREMENTS MAY HELP ASSESS EXTENT OF MYOCARDIAL DAMAGE. . Note: Troponin I testing is performed using different testing methodology at [facility] than at other [facility]. Direct result comparisons should only be made within the same method. . Patients receiving more than 5 mg/day of biotin may have interference in test results. A sample should be taken no sooner than eight hours after previous dose. Contact [phone] for additional information. Performed By: #### TROP2 #### [facility] [id number] [place] [address] CONSULT - PSYCHIATRY Observed: 07/22/2017 Status: COMPLETED Source: DRIVER 12:51 PM HOSPITALS REPOSITORY Referral Information: Consult requested by (Attending Name): Dr. Mayorga Reason: Chem dep History of Present Illness: Admission Reason: alcohol withdrawal HPI: Patient is a 37 year old male with history of alcohol use disorder, schizoaffective disorder or bipolar disorder, admitted for alcohol withdrawal. Psychiatry consulted for chemical dependency. Patient reports that he has been on a one week binge and doesn't recall how much he has been drinking. His last drink was this past Wednesday (07/17), he was then admitted to [facility] for detox, he left AMA and admits to using cocaine (although reports that it was a one time thing). He reports having a problem with alcohol since the age of 25, he reports his longest period of sobriety was around a year, he is unable to identify factors that contribute to his past sobriety or his current use. He feels that there is no particular stressor or reason that he uses alcohol, besides that he believes he is physically dependent on it. He reports that he has been admitted for alcohol withdrawal too many times and he wants to quit. Has not tried any AA or inpatient rehabilitation programs, partial hospitalization or intensive outpatient therapy. Historical drank from 2-3 fifths of vodka daily per chart review. Currently follows up at [facility], lives in a long term and reports supportive family. Psychiatrically, he denies mood disturbance, psychosis, symptoms of claudine, paranoia delusions, suicidal or homicidal ideation He has been stable on Geodon and Buspar for years and reports good compliance and that they are helpful. He currently resides in a long term. Past Psychiatric History: multiple past psychiatric and detox admissions suicide attempts: attempted to jump out of moving car in the past past medications: has been on geodon and buspar for years current agency: [facility] Family History: Family History: Family History: denies family history Social History: Social History: Reports good childhood, grew up in area, finished school, got , no children. for 6 years, then . Supportive extended family, currently has a significant other. Lives in long term. Attends [facility]. Substance: chronic alcohol abuse, from age 25, reports one year length of sobriety in the past, multiple detox admissions, no AA, IOP, PHP, or inpatient residential rehab Admits to cocaine and marijuana recently but says use of these is very rare and sporadic Legal: history of incarceration Occupation: disability Allergies: ? morphine: Hives/Urticaria ? opiates: Unknown ? narcotic analgesics: Unknown Medications Prior to Admission: gabapentin 400 mg oral capsule: 2 cap(s) orally 3 times a day busPIRone 10 mg oral tablet: 1.5 tab(s) orally every 12 hours pantoprazole 40 mg oral delayed release tablet: 1 tab(s) orally 2 times a day Geodon 40 mg oral capsule: 1 cap(s) orally 2 times a day. OARRS Review: OARRS checked: no Objective: Objective Information: T P R BP SpO2 Value 36.7 87 18 104/62 97% Date/Time 07/22 12:07/22 12:07/22 12:07/22 12:07/22 12:00 Range (36.2C - 37.4C ) (60 - 108 ) (16 - 18 ) (104 - 140 )/ (62 - 91 ) (96% - 99% ) Highest temp of 37.4 C was recorded at 07/21 21:02 Mental Status Exam: General: male, lying in bed, head was covered with blanket upon entering room Appearance: Tattoos located on his neck, rest of his body was covered with the blanket Attitude: Cooperative Behavior: Maintains good eye contact, appropriate Motor Activity: No tremors noted Speech: Soft spoken, fluent, direct Mood: Good Affect: Flat, blunted Thought Process: Linear Thought Content: No suicidal or homicidal ideations Thought Perception: No hallucinations at this time Cognition: A&Ox3 Insight: Recognizes he has a problem with his substance use Judgment: Is able to make informed decisions on his own Functional Estimates: Estimate of Intelligence: average Estimate of Capacity for Activities of Daily Living: requires assistance Medications: Continuous Medications No continuous medications are active Scheduled Medications 1. busPIRone: 15 mg Oral Every 12 Hours 2. Folic Acid: 1 mg Oral Daily 3. Gabapentin: 400 mg Oral 3 Times a Day 4. Multivitamin with Minerals: 1 tablet(s) Oral Daily 5. Pantoprazole: 40 mg Oral Daily 6. Thiamine: 100 mg Oral Daily 7. Ziprasidone: 40 mg Oral 2 Times a Day PRN Medications 1. LORazepam: 0.5 mg Oral Every 2 Hours 2. LORazepam: 1 mg Oral Every 2 Hours 3. LORazepam: 2 mg Oral Every 2 Hours Recent Lab Results: Results: I have reviewed these laboratory results: Complete Blood Count + Differential 22-Jul-2017 01:01:00 Result Value White Blood Cell Count 8.0 Nucleated Erythrocyte Count 0.0 Red Blood Cell Count 4.35 L HGB 14.1 HCT 40.5 L MCV 93 MCHC 34.8 PLT 301 RDW-CV 14.6 H Neutrophil % 65.1 Immature Granulocytes % 0.5 Lymphocyte % 24.9 Monocyte % 8.5 Eosinophil % 0.4 Basophil % 0.6 Neutrophil Count 5.18 Lymphocyte Count 1.98 Monocyte Count 0.68 Eosinophil Count 0.03 Basophil Count 0.05 Comprehensive Metabolic Panel 21-Jul-2017 22:52:00 Result Value Glucose, Serum 92 NA 136 K 4.3 CL 99 Bicarbonate, Serum 23 Anion Gap, Serum 18 BUN 11 CREAT 0.65 GFR-Non >60 GFR- >60 Calcium, Serum 10.2 ALB 4.7 ALKP 86 T Pro 7.9 T Bili 0.7 Alanine Aminotransferase, Serum 12 Aspartate Transaminase, Serum 20 PT + INR, Plasma 21-Jul-2017 22:52:00 Result Value Prothrombin Time, Plasma 10.7 International Normalized Ratio, Plasma 1.0 Creatine Kinase, Level 21-Jul-2017 22:52:00 Result Value Creatine Kinase, Level 85 Assessment/Recommendations: Psychiatric Risk Assessment: Violence Risk Assessment: major mental illness, male, substance abuse Acute Risk of Harm to Others is Considered: minimal Suicide Risk Assessment: , current psychiatric illness, male, unmarried Protective Factors against Suicide: adherence to treatment, hopefulness / future orientation, strong therapeutic alliance with provider Risk of Harm to Self is Considered: minimal Assessment: Patient is a 37 year old male with history of alcohol use disorder, schizoaffective disorder or bipolar disorder, admitted for alcohol withdrawal. Psychiatry consulted for chemical dependency. Reports psychiatric stability on current medication regimen, and he is well-[facility]. Reports motivation for cessation, emphasized to patient that [facility] is a facility which has multiple resources to help with alcohol dependence. Patient conveyed understanding and repots intention to follow-through on pursuing treatment. Assessment: ETOH use disorder moderate ETOH withdrawal Schizoaffective disorder Recommendations: -No indication for psychiatric hospitalization or psychiatric 1:1 -Continue premorbid psychiatric medication regimen -Follow up at [facility] as scheduled, patient reports it is on August 01, he lives at a long term and has transportation -Provided with substance abuse treatment resources in [facility] -staffed with Dr. Hodges -Will follow, please call with questions [phone]. Signature/Cosignature/Attestation: Sign/Cosign/Attest: Attending Attestation I saw and evaluated the patient. I personally obtained the goodwin and critical portions of the history and physical exam or was physically present for goodwin and critical portions performed by the resident/fellow. I reviewed the resident/fellow?s documentation and discussed the patient with the resident/fellow. I agree with the resident/fellow?s medical decision making as documented in the resident/fellow?s note with the exception/addition of the following: I personally evaluated the patient (as noted in the above attestation) on 22-Jul-2017 Comments/ Additional Findings Patient seen with team; resting on top of bed in home clothing including shoes, covers over his face; initially sleeping soundly. Arousable with effort. States that people are treating him very well here. Denies disturbances in his mood or cognition, denies SI/AVH. States that he would like to achieve sobriety. Has not attended treatment (beyond detox) in the past; thinks that he might consider residential treatment. MSE as above; tattoos throughout neck/BUE; mild tremor in hands. No SI/AVH/paranoia. I/J fair A/P: Agree with ETOH use disorder moderate; ETOH withdrawal; Schizoaffective disorder. Continue current meds, no sitter or inpatient psych at this time, monitor for ETOH withdrawal. Provided resource list. Will followup on 07/23/17. Electronic Signatures: Stephy Hodges) (Signed 22-Jul-2017 23:44) Authored: Assessment/Recommendations, Signature/Cosignature/Attestation Co-Signer: Assessment/Recommendations, Signature/Cosignature/Attestation Opal Chambers (Resident)) (Signed 03-May-2018 14:38) Authored: Referral Information, History of Present Illness, Past Psychiatric History, Family History, Social History, Allergies, Medications Prior to Admission, Objective, Assessment/Recommendations, Signature/Cosignature/Attestation Last Updated: 22-Jul-2017 23:44 by Stephy Hodges) DRUG SCREEN,URINE Collected: 07/22/2017 Status: F Source: DRIVER 12:48 PM HOSPITALS REPOSITORY TYPE CODE TESTS RESULT OUT OF REFERENCE UNITS RANGE LAB AMPH(LOINC NEGATIVE ) AMPHETAMINES NEGATIVE Result Comment: CUTOFF LEVEL: 500 NG/ML Nuclear Physician drug: d-Methamphetamine Cross-reactivity has been reported with high concentrations of the following drugs: buproprion, chloroquine, chlorpromazine, ephedrine, mephentermine, fenfluramine, phentermine, phenylpropanolamine, pseudoephedrine, and propranolol. LAB ARIANNA(LOINC) NEGATIVE URINE BARBITURATES NEGATIVE Result Comment: CUTOFF LEVEL:200 NG/ML Nuclear Physician drug: Secobarbital LAB BENZO(LOINC) NEGATIVE BENZODIAZEPINES Abnormal POSITIVE Result Comment: CUTOFF LEVEL:200 NG/ML Nuclear Physician drug: Lormetazepam LAB SHIRLEY(LOINC) NEGATIVE Abnormal CANNABINOIDS POSITIVE Result Comment: CUTOFF LEVEL:50 NG/ML Nuclear Physician [id number] acid LAB COCAI(LOINC) NEGATIVE Abnormal COCAINE POSITIVE METABOLITE Result Comment: CUTOFF LEVEL: 150 NG/ML Nuclear Physician drug: Benzoylecgonine(cocaine metabolite) LAB METHD(LOINC) NEGATIVE METHADONE NEGATIVE Result Comment: CUTOFF LEVEL: 150 NG/ML Nuclear Physician drug: Methadone The metabolite [id number] (LAAM) is not detected by this method in concentrations that would be found in the urine of patients on LAAM therapy. LAB OPIAT(LOINC) NEGATIVE OPIATES NEGATIVE Result Comment: CUTOFF LEVEL: 300 NG/ML Nuclear Physician Drug: Morphine This assay shows poor reactivity with synthetic opioids such as oxycodone and fentanyl. Cross-reactivity has been reported at high doses of meperidine. LAB OXYS2(LOINC) NEGATIVE OXYCODONE NEGATIVE Result Comment: CUTOFF LEVEL:100 NG/ML Nuclear Physician drug: Oxycodone This test will accurately detect both oxycodone and oxymorphone. LAB PCP(LOINC) NEGATIVE NEGATIVE PCP Result Comment: CUTOFF LEVEL: 25 NG/ML Nuclear Physician drug: Phencyclidine(PCP) Cross-reactivity has been reported with dextromethorphan. LAB LENIN([facility]) DRUG SCREEN COMMENT SEE BELOW Result Comment: POSITIVE CUTOFFS ARE BASED ON REACTIVITY WITH A LOCKSMITH HELPER MEMBER OF DRUG CLASS. MEMBERS OF THE SAME CLASS OF DRUG MAY HAVE DIFFERING REACTIVITY WITH THE ASSAY AND THEREFORE MAY NEED TO BE PRESENT IN HIGHER CONCENTRATIONS TO GENERATE A POSITIVE RESULT. THESE TOXICOLOGY SCREENS PROVIDE UNCONFIRMED ANALYTICAL RESULTS SUITABLE FOR CLINICAL MANAGEMENT. A POSITIVE QUALITATIVE RESULT DOES NOT INDICATE OR MEASURE INTOXICATION. FOR QUANTITATIVE CONFIRMATORY TESTING OR PATHOLOGIST CONSULTATION, CALL LABORATORY AT [phone]. Performed By: #### [id number] #### [facility] [id number] [place] [address] HISTORY AND PHYSICAL Observed: 07/22/2017 Status: COMPLETED Source: UNIVERSITY 11:09 AM HOSPITALS REPOSITORY History of Present Illness: Admission Reason: EtOH withdrawal HPI: 37yr old WM with h/o schizoaffective disorder, polysubstance abuse, (Alcohol/ Cocaine and smoking), recently admitted to [facility], [facility], signed out AMA presented to the ED with concerns for alcohol withdrawal. States he was admitted at [facility] for 2 days for detox, signed out AMA (to visit his girl friend) and felt like he was still going through withdrawal at which point he came in to [facility] ED. States his last drink was on past Wednesday, 07/17, reported to drinking heavily, unable to quantify, ?binge drinking for over a week, whatever he could get. Was previously at rehab, last one in 2014. Reports to tremors, sweating and feeling dizzy with headache, but denied any chest pain, palpitations. Did endorse using cocaine, about 2 days ago. No abdominal pain, nausea, vomiting, urinary complains. Had some diarrhea earlier yesterday, resolved currently. Denied any active SI/ HI, no AH/ VH. Follow[facility] up at [facility] for his Psych diagnosis, endorses compliance with meds. In the ED, he was afebrile, BP: 140/91, FL: 86, RR:16, O2 sat : 99% on RA. Labs with no significant abn, Trop 0.04, EKG with NSR< no acute ST/ T wave changes. BAL <10. Urine drug screen pending. CXR neg for acute pathology. CIWA scores 14-2. Admitted to medicine for further management. PMH: as per HPI PSH: none Allergies: Morphine (hives) Meds: as per med rec, reviewed Social: smokes 1PPD for many years, heavy alcohol use, uses cocaine, lives at home with family. Family: none pertinent to current symptoms. All systems reviewed, negative except as mentioned above in HPI. Allergies: ? morphine: Hives/Urticaria ? opiates: Unknown ? narcotic analgesics: Unknown Objective: Objective Information: T P R BP SpO2 Value 36.2 85 18 120/77 99% Date/Time 07/22 10:00 07/22 10:00 07/22 10:00 07/22 10:00 07/22 10:00 Range (36.2C - 37.4C ) (60 - 108 ) (16 - 18 ) (120 - 140 )/ (77 - 91 ) (96% - 99% ) Highest temp of 37.4 C was recorded at 07/21 21:02 Pain with Activity reported at 07/22 6:30: 0 Pain at Rest reported at 07/22 7:06: 0 Physical Exam: Constitutional: AAOx3, moderately built and nourished, in no acute distress. Eyes: no icterus, no pallor, EOM intact. ENMT: moist mucus membranes, no oral lesions Head/Neck: Supple, no palpable thyroid masses, no elevated JVP. Respiratory/Thorax: b/l air entry, clear, no wheeze, no rales. Cardiovascular: S1 S2 regular rate, rhythm, no murmurs, rubs, gallops. Gastrointestinal: Soft, no tenderness, ND, BS+ Musculoskeletal: Normal range of motion, no evidence of trauma. Extremities: No pedal edema, palpable pulses. Neurological: AAOx3, moves all extremities, no significant tremors. Psychological: Flat affect Skin: multiple tattoos on his chest/ upper extremities Medications: Medications: Continuous Medications No continuous medications are active Scheduled Medications 1. busPIRone: 15 mg Oral Every 12 Hours 2. Folic Acid: 1 mg Oral Daily 3. Gabapentin: 400 mg Oral 3 Times a Day 4. Multivitamin with Minerals: 1 tablet(s) Oral Daily 5. Pantoprazole: 40 mg Oral Daily 6. Thiamine: 100 mg Oral Daily 7. Ziprasidone: 40 mg Oral 2 Times a Day PRN Medications 1. LORazepam: 0.5 mg Oral Every 2 Hours 2. LORazepam: 1 mg Oral Every 2 Hours 3. LORazepam: 2 mg Oral Every 2 Hours Recent Lab Results: Results: I have reviewed these laboratory results: Troponin I, Serum Trending View Result 22-Jul-2017 05:42:00 21-Jul-2017 22:52:00 Troponin I, Serum 0.02 0.04 H Complete Blood Count + Differential 22-Jul-2017 01:01:00 Result Value White Blood Cell Count 8.0 Nucleated Erythrocyte Count 0.0 Red Blood Cell Count 4.35 L HGB 14.1 HCT 40.5 L MCV 93 MCHC 34.8 PLT 301 RDW-CV 14.6 H Neutrophil % 65.1 Immature Granulocytes % 0.5 Lymphocyte % 24.9 Monocyte % 8.5 Eosinophil % 0.4 Basophil % 0.6 Neutrophil Count 5.18 Lymphocyte Count 1.98 Monocyte Count 0.68 Eosinophil Count 0.03 Basophil Count 0.05 Comprehensive Metabolic Panel 21-Jul-2017 22:52:00 Result Value Glucose, Serum 92 NA 136 K 4.3 CL 99 Bicarbonate, Serum 23 Anion Gap, Serum 18 BUN 11 CREAT 0.65 GFR-Non >60 GFR- >60 Calcium, Serum 10.2 ALB 4.7 ALKP 86 T Pro 7.9 T Bili 0.7 Alanine Aminotransferase, Serum 12 Aspartate Transaminase, Serum 20 PT + INR, Plasma 21-Jul-2017 22:52:00 Result Value Prothrombin Time, Plasma 10.7 International Normalized Ratio, Plasma 1.0 Creatine Kinase, Level 21-Jul-2017 22:52:00 Result Value Creatine Kinase, Level 85 Ethanol Level 21-Jul-2017 22:52:00 Result Value Ethanol Level <10 Glucose_POCT 21-Jul-2017 21:10:00 Result Value Glucose-POCT 108 H Radiology Results: Results: No Results have been selected. Please select Results from the Available Results list before marking as Reviewed. Conclusion: Electrocardiogram 12 Lead [Jul 22 2017 10:50AM] Impression: No acute cardiopulmonary process. Xray Chest 2 View PA + Lateral [Jul 21 2017 11:11PM] Assessment and Plan: Assessment: 37yr old WM with h/o schizoaffective disorder, polysubstance abuse, (Alcohol/ Cocaine and smoking), GERD/ Gastritis recently admitted to [facility], [facility], signed out AMA presented to the ED with concerns for alcohol withdrawal. Alcohol abuse/ withdrawal Extensive alcohol abuse, signed out AMA form OSH. Cont CIWA, thiamine, folic acid. Will get Chem Dep eval. Troponin elevation, type 2 GA, likely due to Cocaine. Trended down, no active chest pain. EKG with no acute changes. No need to trend troponin further. Denied any hemoptysis. Neuropathy, cont gabapentin. Schizoaffective disorder, no acute issues Cont meds. GERD: cont PPI. DVT prophylaxis: scd's. Signatures/Attestation/Certification: Attending Provider ? Inpatient Certification Statement I certify this patient?s need for inpatient care based on the above documentation including; the order to admit as inpatient, the anticipated length of stay, diagnosis, problem list and plan of care, and discharge plan. Electronic Signatures: Sindhu Mayorga) (Signed 22-Jul-2017 12:17) Authored: History of Present Illness, Comorbidities, Allergies, Objective, Assessment and Plan, Signatures/Attestation/Certification Last Updated: 22-Jul-2017 12:17 by Sindhu Mayorga) DISCHARGE PLANNING Observed: 07/22/2017 Status: UNK Source: UNIVERSITY NOTE 6:49 AM HOSPITALS REPOSITORY Discharge Needs Assessment: ? Discharge Planning Assessment Date 22-Jul-2017 Patient Learning: ? Factors that Impact Ability to Learn acuteness of illness(1) Other Factors: ? Functional Screen: In the recent/past 2-4 weeks, patient or family have noticed a significant change in ability to chew or swallow, new difficulty in safely performing activities of daily living(1) Discharge Needs: ? Anticipated Discharge Facility/Level of Care Needs Home Discharge Planning: Discharge Plannin07/22/17 0651 Admission Note Patient is an 37 y/o male presenting with coccaine abuse. Patient lives in a home with roomates. Patients girlfriend brings him tto and from appointments with his PCP who he sees at Urgent care in [place]. Patient should go back home with no no needs. Linda Granados RN Nursing Discharge Note 07/24/17 1634 Patient discharged home. No home health needs. Patient given and explained discharge instructions and verbalized understanding. Tele discontinued. No new medications at this time. Patient given bus ticket and walked down to 1st floor of [facility] in stable condition. Danyell Correa RN Electronic Signatures: Soila Correa (RN) (Signed 24-Jul-2017 16:36) Authored: Discharge Planning Note Linda Granados (GARY) (Signed 22-Jul-2017 07:01) Authored: Discharge Planning Note Last Updated: 24-Jul-2017 16:36 by Soila Correa (RN) References: 1. Data Referenced From Admission Risk Screen - Adult 07/22/2017 6:30 AM PATIENT PROFILE - Observed: 07/22/2017 Status: UNK Source: DRIVER ADULT V2 6:36 AM HOSPITALS REPOSITORY Profile: Initial Info: How to be Addressed zaina Spoken Language Preferred Sudanese (1) Source of Information patient Are you currently using the Personal Electronic Health Record or One Touch EMR no Are you interested in learning more about [facility] for the management of your health declined Stated Reason for Admission havent been feeling well Arrived From home Patient Belongings remains with patient Patient Belongings Remaining with Patient purse/wallet; clothing; cell phone/electronics Medications Brought to Hospital no General Health: Weight in kg 88.4 kilogram(s) Weight in lbs 194.8 pound(s) Height in cm 190.5 centimeter(s) BMI (kg/m2) 24.359 square meter Weight Method actual (measured) Scale Type standing Height Method stated RSP Based Care: How would you like to participate in your care? I would like to be involved What is the number one concern for you during this hospitalization? safety What is the most important thing we can do to support you during this hospitalization? care fo me Is there anything we need to know to best care for you? n/a Substance: Current or Former Substance Use YES: Cigarette/Tobacco, Alcohol, Street Drugs Tobacco Cessation Education (provide if tobacco use within the last 12 mos) patient declined Alcohol Use Status current alcohol Alcohol Amount 7-9 drinks Alcohol Frequency 2-3 times/week Alcohol Type liquor Problems Related to Alcohol Use yes Alcohol Withdrawal Pattern diaphoresis; irritability; nausea; vomiting Attempts to Quit Alcohol detox unit Readiness to Quit Alcohol ready to quit Response to Alcohol Treatment Offer not applicable Health Mgmt: Symptoms/Conditions Managed at Home none Relationship/Environ: Primary Source of Support/Comfort friend Lives With friend(s) Living Arrangements house Resource/Environmental Concerns none Anticipated Transition To home Services Anticipated at Transition rehabilitation services Significant Indicators Complete Information Review: ? Allergies, Home Meds and Significant Events have been Reviewed and Verified with Patient/Family yes ALLERGY, INTOLERANCE, ADVERSE EVENT: Allergies: ? morphine: Drug, Hives/Urticaria, Active ? opiates: Drug Category, Unknown, Active ? narcotic analgesics: Drug Category, Unknown, Active Electronic Signatures: Linda Granados (GARY) (Signed 22-Jul-2017 06:45) Authored: Profile, Additional Information Last Updated: 22-Jul-2017 06:45 by Linda Granados (RN) References: 1. Data Referenced From Triage - ED 11/01/2016 03:24 PM ADMISSION RISK SCREEN Observed: 07/22/2017 Status: UNK Source: UNIVERSITY - ADULT 6:30 AM HOSPITALS REPOSITORY Allergies: Allergies: ? morphine: Hives/Urticaria ? opiates: Unknown ? narcotic analgesics: Unknown Patient Verification: ? New W ID Band Applied in my Department no ? Type of ID Patient is Wearing W wristband, but not applied here ? Patient Transferred from Other Facility ([facility], [facility],etc) no ? Patient Identity Verified By patient ? ID Band FULL Name, include Middle, spelling matches patient's ID used for verification yes ? ID Band Matches Patient ID used for Verfication yes ? ID Band MRN Matches EMR MRN yes Advance Directive: ? Advance Directive Medical no (1) ? Advance Directive Information Given patient/family declined ? Advance Directive Mental Health not applicable Falls Screen: Type of Assessment admission Moderate Risk Factors dizziness/syncope, sensory deficits High Risk Factors gait instability, symptoms due to meds (sedatives, hypnotics, new diuretics and new laxatives) Risk for Injury Associated with Fall none Fall Risk Conclusion high falls risk with low risk for associated injury [place] Safety Interventions WDL *orient to call system *instruct to call for assistance before getting out of bed *non-slip footwear when patient is out of bed *call cardona in reach *personal items and telephone in reach *physically safe environment (no spills or clutter) *bed in lowest position with wheels locked *appropriate side rails in place *room/bathroom lighting operational, light cord in reach *appropriate signage on door Family Violence Screen: ? Are you or have you been threatened or abused physically, emotionally, or sexually by anyone? no ? Has anyone ever threatened to hurt your family or your pets? no ? Does anyone try to keep you from having/contacting other friends or doing things outside your home? no ? Do you feel UNSAFE going back to the place where you are living? no ? Do you feel anyone has exploited or taken advantage of you financially or of your personal property? no ? Clinical assessment: Are there any apparent signs of injuries/behaviors that could be related to abuse/neglect no ? Social Service Consult for abuse/neglect needed this visit? no Functional screen: ? Functional Screen: In the recent/past 2-4 weeks, patient or family have noticed a significant change in ability to chew or swallow, new difficulty in safely performing activities of daily living Learning Assessment (Patient): ? Patient is Able to be Assessed for Learning yes ? Factors Influencing Readiness to Learn acuteness of illness; anxiety ? Factors that Impact Ability to Learn acuteness of illness ? Devices/Methods Used to Communicate none ? Learning Preferences verbal instruction ? Cultural Considerations none ? Developmental Considerations none ? Orthodox Considerations none Learning Assessment (Other Learner): ? Other learner available no Suicide/Depression Screen: ? During the past month, have you often been bothered by feeling down, depressed or hopeless? no (1) ? During the past month, have you often had little interest or pleasure in doing things? no (1) ? Have you had any thoughts of harming yourself? no (1) ? Have you had any thoughts of harming anyone else? no (1) Adult Nutrition Screen: ? Have you recently lost weight without trying no ? Have you been eating poorly because of a decreased appetite yes ? MST Score 1 ? Risk MST = 0 or 1 Not at risk. Eating well with little or no weight loss ? Nutrition Consult needed this visit? no ? Can Patient Participate in Room Service? yes ? Patient requires Paper Dishes/Plastic Utensils no Pain Screen: ? Pain Scale numerical 0-10 ? Pain Scale Education teaching provided ? Current Pain Level 5 = Moderate ? Acceptable Pain Level 0 = None ? Expression of Pain (nonverbal) none ? Chronic Pain yes ? Chronic Head/Neck pain location neck ? Chronic Back pain location lower Spiritual Screen: ? Are there any cultural, spiritual, anglican practices/values/needs that are important for us to know? no ? Do you want a visit/item from Pastoral Care? no ? Would you like your Dock Superintendent/Manager Medicaid notified? no CAGE: Is this an injured patient at a Trauma Center ([facility]): no (1) Vaccinations: Vaccination - Influenza Vaccination Screen: ? Is it flu season? (between and ) Yes ? Screening for identified contraindications to influenza vaccination patient already received vaccine this season Vaccination - Pneumonia Vaccination Screen: ? Patient has received a previous pneumonia vaccine: yes Malik: Skin - Malik Scale: ? Malik: Sensory Perception (response to environment) (3) slightly limited ? Malik: Moisture (degree skin exposed to moisture) (2) very moist ? Malik: Activity (ability to walk) (4) walks frequently ? Malik: Mobility (amount/control of body movement) (3) slightly limited ? Malik: Nutrition (quality of food intake) (2) probably inadequate ? Malik: Friction and Shear (3) no apparent problem ? Malik: Score 17 ? Skin Intervention Orders (Nursing orders will be generated) elevate heels, up in chair < 1 hr intervals, turn side to side every 2 hrs, assess for therapeutic equipment, assess pressure points, hygiene care, toilet/ADL every 2 hrs awake, toilet/ADL every 4 hrs asleep, educate prevent/treat pressure ulcer Significant Indicatiors: Significant Indicators: Complete Pressure Injury: Pressure Injury Present on Admission no Electronic Signatures: Linda Granados (GARY) (Signed 22-Jul-2017 06:36) Authored: Admission Risk Screens, Vaccinations, Malik, Pressure Injury Last Updated: 22-Jul-2017 06:36 by Linda Granados (GARY) References: 1. Data Referenced From Risk Screen - Adult Emergency 07/21/2017 11:22 PM TROPONIN I Collected: 07/22/2017 Status: F Source: DRIVER 5:42 AM HOSPITALS REPOSITORY TYPE CODE TESTS RESULT OUT OF REFERENCE UNITS RANGE LAB TROP2(LOINC 0.00 - 0.03 ng/mL ) TROPONIN I 0.02 Result Comment: LESS THAN 0.04 NG/ML: NEGATIVE REPEAT TESTING IN FOUR TO SIX HOURS IF CLINICALLY INDICATED. 0.04 - 0.5 NG/ML: CONSISTENT WITH POSSIBLE CARDIAC DAMAGE AND POSSIBLE INCREASED CLINICAL RISK. SERIAL MEASUREMENTS MAY HELP ASSESS EXTENT OF MYOCARDIAL DAMAGE. >0.5 NG/ML: CONSISTENT WITH CARDIAC DAMAGE, INCREASED CLINICAL RISK AND MYOCARDIAL INFARCTION. SERIAL MEASUREMENTS MAY HELP ASSESS EXTENT OF MYOCARDIAL DAMAGE. . Note: Troponin I testing is performed using different testing methodology at [facility] than at other [facility]. Direct result comparisons should only be made within the same method. . Patients receiving more than 5 mg/day of biotin may have interference in test results. A sample should be taken no sooner than eight hours after previous dose. Contact [phone] for additional information. Performed By: #### TROP2 #### [facility] [id number] [place] [address] CBC AND DIFFERENTIAL Collected: 07/22/2017 Status: F Source: UNIVERSITY 1:01 AM HOSPITALS REPOSITORY TYPE CODE TESTS RESULT OUT OF REFERENCE UNITS RANGE LAB WBCR(LOINC 4.4 - 11.3 x10E9/L ) WBC 8.0 LAB NRBC(LOINC 0.0-0.0 /100 WBC ) NUCLEATED RBC 0.0 LAB RBCCT(LOIN 4.50 - 5.90 x10E12/L C) Low RBC 4.35 LAB HGB(LOINC) 13.5 - 17.5 g/dL HGB 14.1 LAB HCT(LOINC) 41.0 - 52.0 % Low HCT 40.5 LAB MCV(LOINC) 80 - 100 fL MCV 93 LAB MCHC2(LOIN 32.0 - 36.0 g/dL C) MCHC 34.8 LAB PLTCT(LOIN 150 - 450 x10E9/L C) PLT 301 LAB RDWCV(LOIN 11.5 - 14.5 % C) RDW-CV High 14.6 LAB NEUT(LOINC 40.0 - 80.0 % ) % NEUTROPHIL 65.1 LAB IG(LOINC) 0.0 - 0.9 % % AUTOMATED 0.5 IMMATURE GRAN Result Comment: Percent differential counts (%) should be interpreted in the context of the absolute cell counts (cells/L). LAB LYMPH(LOINC) 13.0 - 44.0 % % LYMPHOCYTE 24.9 LAB MONO(LOINC) 2.0 - 10.0 % % MONOCYTE 8.5 LAB EOS(LOINC) 0.0 - 6.0 % % EOSINOPHIL 0.4 LAB BASO(LOINC) 0.0 - 2.0 % % BASOPHIL 0.6 LAB #NEUT(LOINC) 1.20 - 7.70 x10E9/L NEUTROPHIL 5.18 LAB #LYMP(LOINC) 1.20 - 4.80 x10E9/L LYMPHOCYTE 1.98 LAB #MONO(LOINC) 0.10 - 1.00 x10E9/L MONOCYTE 0.68 LAB #EOS(LOINC) 0.00 - 0.70 x10E9/L EOSINOPHIL 0.03 LAB #BASO(LOINC) 0.00 - 0.10 x10E9/L BASOPHIL 0.05 Performed By: #### CBCDF #### [facility] [address] [place] [address] EMR ADDON Collected: 07/22/2017 Status: F Source: DRIVER 12:05 AM HOSPITALS REPOSITORY TYPE CODE TESTS RESULT OUT OF REFERENCE UNITS RANGE LAB EMRAC(LOIN C) ADDON CONFIRMATION REQUEST REC'D Performed By: #### EMRAD #### NO LOCATION NEEDED RISK SCREEN - ADULT Observed: 07/21/2017 Status: UNK Source: [facility] 11:22 PM HOSPITALS REPOSITORY Preferred Language: Preferred Language: ? Preferred Language for Discussing Health Care (patient/designee) Sudanese Advanced Directives: ? Advance Directive Medical no Family Violence Adult: Abuse Screen: ? Are you or have you been threatened or abused physically, emotionally, or sexually by anyone? no Suicide / Depression: Suicide/Depression Screen: ? During the past month, have you often been bothered by feeling down, depressed or hopeless? no ? During the past month, have you often had little interest or pleasure in doing things? no ? Have you had any thoughts of harming yourself? no (1) ? Have you had any thoughts of harming anyone else? no (1) Learning Assessment (Patient): Learning Assessment (Patient): ? Patient is Able to be Assessed for Learning yes ? Factors Influencing Readiness to Learn motivation to learn ? Factors that Impact Ability to Learn none ? Devices/Methods Used to Communicate none ? Learning Preferences verbal instruction; written material ? Cultural Considerations none ? Developmental Considerations none ? Orthodox Considerations none Learning Assessment (Other Learner): Learning Assessment (Other Learner): ? Other learner available no Fall Risk Adult: Falls Risk: ? Altered Mobility none ? Change in Mental Status no ? Relevant Medical History / Diagnosis none ? Fall History none ? Altered Elimination no ? Medications that Might Alter: equilibrium, cognitive judgement or severity of injury none ? Sensory Deficit no ? UNABLE or UNWILLING to Follow Directions no ? Patient Identified as a Falls Risk no ? Provide Rationale not identified as Falls Risk no risk factors identified Pressure Injury: Pressure Injury Present on Admission no Respiratory / Cough /TB: ED / TB / Cough / Respiratory Screen: ? Do you have a cough? no Smoking/Social History (Required age 13 or older): Smoking Status: current some day smoker Alcohol Use: daily, last drink 07/16 Drug Use: denies Admission Risk Screen: ? Significant Indicators Complete CAGE: CAGE: Is this an injured patient at a Trauma Center ([facility] / [facility]): no Electronic Signatures: Valentina Reynolds (GARY) (Signed 21-Jul-2017 23:23) Authored: Preferred Language, Advanced Directives, Family Violence Adult, Suicide / Depression, Learning Assessment (Patient), Learning Assessment (Other Learner), Fall Risk Adult, Pressure Injury, Respiratory / Cough /TB, Smoking/Social History (Required age 13 or older), CAGE Last Updated: 21-Jul-2017 23:23 by Valentina Reynolds (RN) References: 1. Data Referenced From Triage - ED 07/21/2017 09:02 PM CBC AND DIFFERENTIAL Collected: 07/21/2017 Status: CANCELLED Source: DRIVER 10:52 PM HOSPITALS REPOSITORY Order Comment: TEST CBC AND DIFFERENTIAL WAS CANCELLED, 07/22/2017 00:17 SPECIMEN CLOTTED.PLEASE RESUBMIT. TYPE CODE TESTS RESULT OUT OF REFERENCE UNITS RANGE LAB WBCR(LOINC ) WBC Canceled LAB NRBC(LOINC ) NUCLEATED RBC Canceled LAB RBCCT(LOIN C) RBC Canceled LAB HGB(LOINC) HGB Canceled LAB HCT(LOINC) HCT Canceled LAB MCV(LOINC) MCV Canceled LAB MCHC2(LOIN C) MCHC Canceled LAB PLTCT(LOIN C) PLT Canceled LAB RDWCV(LOIN C) RDW-CV Canceled LAB NEUT(LOINC ) % NEUTROPHIL Canceled LAB IG(LOINC) % AUTOMATED Canceled IMMATURE GRAN Result Comment: Percent differential counts (%) should be interpreted in the context of the absolute cell counts (cells/L). LAB LYMPH(LOINC) % LYMPHOCYTE Canceled LAB MONO(LOINC) % MONOCYTE Canceled LAB EOS(LOINC) % EOSINOPHIL Canceled LAB BASO(LOINC) % BASOPHIL Canceled LAB #NEUT(LOINC) NEUTROPHIL Canceled LAB #LYMP(LOINC) LYMPHOCYTE Canceled LAB #MONO(LOINC) MONOCYTE Canceled LAB #EOS(LOINC) EOSINOPHIL Canceled LAB #BASO(LOINC) BASOPHIL Canceled LAB MDIF(LOINC) DIFFERENTIAL Canceled Performed By: #### CBCDF #### [facility] [address] [place] [id number] PT/INR Collected: 07/21/2017 Status: F Source: DRIVER 10:52 [facility] REPOSITORY TYPE CODE TESTS RESULT OUT OF REFERENCE UNITS RANGE LAB PT(LOINC) 9.8 - 12.7 sec PROTHROMBIN TIME 10.7 LAB INR(LOINC) 0.9 - 1.1 PT, INR 1.0 Performed By: #### PTINR #### [facility] [address] [place] [id number] TROPONIN I Collected: 07/21/2017 Status: F Source: DRIVER 10:[address] [place] [address] REPOSITORY TYPE CODE TESTS RESULT OUT OF REFERENCE UNITS RANGE LAB TROP2(LOINC 0.00 - 0.03 ng/mL ) High TROPONIN I 0.04 Result Comment: LESS THAN 0.04 NG/ML: NEGATIVE REPEAT TESTING IN FOUR TO SIX HOURS IF CLINICALLY INDICATED. 0.04 - 0.5 NG/ML: CONSISTENT WITH POSSIBLE CARDIAC DAMAGE AND POSSIBLE INCREASED CLINICAL RISK. SERIAL MEASUREMENTS MAY HELP ASSESS EXTENT OF MYOCARDIAL DAMAGE. >0.5 NG/ML: CONSISTENT WITH CARDIAC DAMAGE, INCREASED CLINICAL RISK AND MYOCARDIAL INFARCTION. SERIAL MEASUREMENTS MAY HELP ASSESS EXTENT OF MYOCARDIAL DAMAGE. . Note: Troponin I testing is performed using different testing methodology at [facility] than at other [facility]. Direct result comparisons should only be made within the same method. . Patients receiving more than 5 mg/day of biotin may have interference in test results. A sample should be taken no sooner than eight hours after previous dose. Contact [phone] for additional information. Performed By: #### TROP2 #### [facility] [address] [place] [address] ALCOHOL Collected: 07/21/2017 Status: F Source: DRIVER 10:52 HOSPITALS REPOSITORY TYPE CODE TESTS RESULT OUT OF REFERENCE UNITS RANGE LAB ALC(LOINC) mg/dL ALCOHOL <10 Result Comment: FOR MEDICAL USE ONLY. . REF VALUES <10 Performed By: #### ALC #### [facility] [address] [place] [address] CREATINE KINASE Collected: 07/21/2017 Status: F Source: DRIVER 10:52 HOSPITALS REPOSITORY TYPE CODE TESTS RESULT OUT OF REFERENCE UNITS RANGE LAB CK(LOINC) 0 - 325 U/L CREATINE 85 KINASE Performed By: #### CK #### [facility] [address] [place] [id number] COMPREHENSIVE PANEL Collected: 07/21/2017 Status: F Source: DRIVER 10:52 [facility] REPOSITORY TYPE CODE TESTS RESULT OUT OF REFERENCE UNITS RANGE LAB GLU(LOINC) 74 - 99 mg/dL GLUCOSE 92 LAB SOD(LOINC) 136 - 145 mmol/L SODIUM 136 LAB K(LOINC) 3.5 - 5.3 mmol/L POTASSIUM 4.3 Result Comment: MILD HEMOLYSIS DETECTED. The result may be falsely elevated due to hemolysis or other interferents. Clinical correlation is recommended. Repeat testing may be considered. LAB CHLOR(LOINC) 98 - 107 mmol/L CHLORIDE 99 LAB BIC(LOINC) 21 - 32 mmol/L BICARBONATE 23 LAB ANGAP(LOINC) 10 - 20 mmol/L ANION GAP 18 LAB UREA(LOINC) 6 - 23 mg/dL UREA NITROGEN 11 LAB CREA(LOINC) 0.50 - mg/dL 1.30 CREATININE 0.65 LAB GFRFN(LOINC) >60 mL/min/1.73m 2 GFR-NON AM. >60 LAB GFRAA(LOINC) >60 mL/min/1.73m 2 GFR- AM. >60 Result Comment: CALCULATIONS OF ESTIMATED GFR ARE PERFORMED USING THE MDRD STUDY EQUATION FOR THE IDMS-TRACEABLE CREATININE METHODS. CLIN CHEM 2007;53:766-72 LAB CA(LOINC) 8.6 - 10.6 mg/dL CALCIUM 10.2 LAB ALB(LOINC) 3.4 - 5.0 g/dL ALBUMIN 4.7 LAB AP(LOINC) 33 - 120 U/L ALKALINE PHOSPHATASE 86 LAB TP(LOINC) 6.4 - 8.2 g/dL TOTAL PROTEIN 7.9 LAB AST(LOINC) 9 - 39 U/L AST 20 Result Comment: MILD HEMOLYSIS DETECTED. The result may be falsely elevated due to hemolysis or other interferents. Clinical correlation is recommended. Repeat testing may be considered. LAB TBILI(LOINC) 0.0 - 1.2 mg/dL BILIRUBIN,TOTAL 0.7 LAB ALT(LOINC) 10 - 52 U/L ALT 12 Result Comment: Patients treated with Sulfasalazine may generate falsely decreased results for ALT. Performed By: #### CMP #### [facility] [address] [place] [address] TH CHEST 2 VIEW PA Observed: 07/21/2017 Status: F Source: DRIVER AND [facility] 10:30 PM HOSPITALS REPOSITORY Patient Name: ZAINA DOLL STUDY: CHEST 2 VIEW PA AND LAT; 07/21/2017 10:30 pm INDICATION: Signs/Symptoms: hemoptysis. COMPARISON: 04/07/2015 ACCESSION NUMBER(S): [id number] ORDERING CLINICIAN: SOILA BOWERS FINDINGS: CARDIOMEDIASTINAL SILHOUETTE: Cardiomediastinal silhouette is normal in size and configuration. LUNGS: No pulmonary consolidation, pleural effusion or pneumothorax. ABDOMEN: No remarkable upper abdominal findings. BONES: No acute osseous abnormality. IMPRESSION: No acute cardiopulmonary process. Electronically signed by: FELECIA MARTIN MD PROVIDER NOTE - ED Observed: 07/21/2017 Status: COMPLETED Source: DRIVER 10:23 PM HOSPITALS REPOSITORY Time Seen: ? Time Seen -Jul-2017 21:42 ED Notes: ? ED Notes CHIEF COMPLAINT: hemoptysis, alcohol withdrawal HPI: 37 yo male with PMH of schizoaffective disorder, alcohol abuse complicated by withdrawal seizures, GERD presents to the ED with a CC of hemoptysis and alcohol withdrawal. Patient was at [facility] for detox from alcohol from Tuesday 07/18 - Thursday 07/20. He signed out AMA yesterday. He used cocaine last night. Today, he has been having hemoptysis, chest pain, shortness of breath, tremors, lightheadedness, sweating, diarrhea, and headaches. He denies fever, vomiting, SI, HI, hallucinations. He does not know if he's had melena/hematochezia. His last alcoholic drink was Monday 07/17 (4 days ago). Past Medical History: As per HPI Past Surgical History: None Social History: Smoker, +marijuana, cocaine Medications: Geodon, omeprazole Allergies: Morphine-?hives Review of Systems: A complete review of systems was performed and is otherwise negative except as noted in the HPI. PHYSICAL EXAM: Vital signs reviewed in nursing triage note, EMR flowsheets, and at patient's bedside. General/Constitutional: Alert, oriented, cooperative, in no acute distress Head: Normocephalic, atraumatic Skin: Intact, dry Eyes: PERRL, EOMs intact, anicteric sclera, conjunctiva pink. No erythema or exudates. ENT: No external deformities. Nares patent, mucous membranes mildly dry. Pharynx clear, uvula midline. Neck: No nuchal rigidity. Trachea at midline. No lymphadenopathy. Pulmonary: Clear bilaterally with good chest wall excursion. No wheezing, ronchi, or rales. Unlabored respiratory effort on room air. Cardiovascular: Regular rate and rhythm. No murmurs, rubs, or gallops. 2+ radial pulses. No LE edema. Abdomen: Soft, nontender, nondistended. No rebound or guarding. Genitourinary: Exam deferred. Musculoskeletal: No obvious deformity Neurological: Cranial nerves II through XII are grossly intact, no focal findings identified. +Tremors of upper extremities Psychiatric: Slightly anxious HOSPITAL COURSE/MEDICAL DECISION MAKING: -Labs: CBC, CMP, troponin, CK, alcohol level, urine drug screen -Imaging: Chest x-ray -EKG: Pending -Treatment/Management: CIWA protocol initiated. First CIWA score was 15, so he received 2 mg of Ativan by mouth. Given NS x 1L. EKG, chest x-ray and labs were ordered for his report of hemoptysis, chest pain, and withdrawal symptoms. Patient care signed out to oncoming ED resident with plan to follow pending results. Anticipate patient will be admitted for further care. Diagnosis: 1. alcohol withdrawal Disposition: Admit Triage Vital Signs: ? Triage Information Most recent Vital Sign Value Date Temp (F): 99.3 07-21-2017 21:02 Temp (C): 37.4 07-21-2017 21:02 Heart Rate (beats/min): 86 07-21-2017 21:02 Respirations (breaths/min): 16 07-21-2017 21:02 SpO2 (%): 99 07-21-2017 21:02 BP Systolic (mm Hg): 140 07-21-2017 21:02 BP Diastolic (mm Hg): 91 07-21-2017 21:02 History of Present Illness: This 37 year old Male presents with complaint(s) of detoxification(1)left [facility] from [facility] for [facility]. now having lightheaded, dizzy spells, coughing up blood, chest pain. last drink Wednesday(1) Allergy, Intolerance, Adverse Event: Allergies: ? morphine: Drug, Hives/Urticaria, Active ? opiates: Drug Category, Unknown, Active ? narcotic analgesics: Drug Category, Unknown, Active Outpatient Medication, Review/Add Medications: * Patient Currently Takes Medications as of 01-Nov-2016 09:28 documented in Structured Notes HISTORY ATTESTATION: ? Attestation I have reviewed and confirmed nurse's/medic's notes for patient's medications, allergies, medical history, and surgical history Diagnoses/Visit Problems: ? Cocaine abuse: ? Alcohol withdrawal: MEDICATION RECONCILIATION/DISCHARGE MEDS: * Outpatient Medication Status not yet specified Attestation: CRITICAL CARE: ? Is This a Critically Ill Patient no Co-Sign/Attestation: Attestation: I saw and evaluated the patient. I personally obtained the goodwin and critical portions of the history and physical exam or was physically present for goodwin and critical portions performed by the resident/fellow. I reviewed the resident/fellow?s documentation and discussed the patient with the resident/fellow. I agree with the resident/fellow?s medical decision making as documented in the resident/fellow?s note with the exception/addition of the following Comments/ Additional Findings: 37 yo male with schizoaffective disorder and alcohol abuse - c/b seizures, withdrawal was at [facility] for withdrawal since Wednesday but signed out AMA yesterday used cocaine last night last drink was 5 days ago now with tremors, chest pain, shortness of breath, one episode of hemoptysis no SI no vomiting I need detox help no seizures since discharge PMHX: see hpi Meds: denies Soc Hx: see hpi PE awake alert tremulous PERRL anicteric supple nl respiratory effort RRR soft NT no edema +pulses no rashes motor/sensory intact bilaterally Med Decision Making [] clearly withdrawing - will need CIWA and ativan [] check basic labs [] hydration unlikely he can be medically cleared - will likely need admission for alcohol withdrawal Electronic Signatures for Addendum Section: Delmis Moss ( (Resident)) (Signed Addendum 22-Jul-2017 07:07) Patient signed out to me by previous provider. Please see above for complete history, workup, results, and management prior to my care of the patient. In brief, this is a 37-year-old male with history of alcohol abuse, recently left AMA from detox facility where he had been residing for three days, presenting with withdrawal symptoms and also reporting cocaine abuse. CIWA 15, patient received ativan. At the time of signout, labs pending. Labs notable for troponin 0.04, otherwise unremarkable. Ethanol negative. CK normal. Urine drug still pending. Patient continued to score 14-15 CIWA multiple times. In addition to oral ativan, patient also given IV ativan 2mg and PO librium, followed later by additional 4mg IV ativan. Repeat CIWA down to 8. Patient admitted to medicine for further management and ACS rule out. Denies chest pain throughout my care of the patient. Remains stable. Electronic Signatures: Soila Bowers ( (Resident)) (Signed 22-Jul-2017 00:22) Authored: Time Seen / ED Notes, Triage Vital Signs, History of Present Illness, Patient History, History Attestation, ED Disposition (REQUIRED), Attestation Kalina Stacy) (Signed 22-Jul-2017 13:05) Authored: ED Disposition (REQUIRED), Attestation Co-Signer: Time Seen / ED Notes, Triage Vital Signs, History of Present Illness, Patient History, History Attestation, ED Disposition (REQUIRED), Attestation Last Updated: 22-Jul-2017 13:05 by Kalina Stacy) References: 1. Data Referenced From Triage - ED 07/21/2017 09:02 PM GLUCOSE-POCT Collected: 07/21/2017 Status: F Source: DRIVER 9:10 PM HOSPITALS REPOSITORY TYPE CODE TESTS RESULT OUT OF RANGE REFERENCE UNITS LAB GLUP(LOINC) 74 - 99 mg/dL High 108 GLUCOSE-POCT Performed By: #### GLUPO #### [facility] [address] [place] [address] TRIAGE - ED Observed: 07/21/2017 Status: UNK Source: DRIVER 9:02 PM HOSPITALS REPOSITORY Pain: Pain Rating (0-10): Rest 4 Chart Review: CHIEF COMPLAINT ZAINA DOLL is a Male patient with a chief complaint of detoxification. Onset of the Complaint: 21-Jul-2017 Other Complaints: left [facility] from [facility] for alcohol detox. now having lightheaded, dizzy spells, coughing up blood, chest pain. last drink Wednesday Triage Date/Time: 21-Jul-2017 21:02 Pain Rating (0-10): Rest: 4 Pain location: chest Vital Signs: Temperature: 99.3F ( 37.4C) Blood Pressure: 140/91 Mean: Heart Rate: 86 Respiratory Rate: 16 Pulse Oximetry: 99% on room air, no respiratory support. Height: 6 feet 3.00 inches. 190.5 CM Weight: 195.0 pounds. Calculated 88.4 kg. Calculated BMI (kg/m2): 24.359 Calculated BSA (m2) 2.16 Cough lasting greater than 3 weeks: no Patient immunocompromised related to: N/A Travel outside of [place]: no Allergies: yes Patient has suicidal thoughts: no Patient has homicidal thoughts: no GEOVANNA: 3 Blood Glucose POC Results (mg/dL): 108 Symptoms Are POSITIVE For: anxiety, chest pain, chills, diaphoresis, headache and shivering. Symptoms Are Negative For: dyspnea, fever, mood swings and seizure. PAIN Pain Scale Used: ALLI Past Medical History: ? Past Medical History Reviewed yes ? Seizure Disorder: Past Medical History, from alcohol withdraw, Active ? EtOH abuse: Past Medical History, Active ? Hypertension (HTN): Past Medical History, Active ? GERD: Past Medical History, Active ? schizoaffective disorder: Past Medical History, Active Electronic Signatures: Shereen Gtz) (Signed 21-Jul-2017 21:10) Authored: Triage, Past Medical History Last Updated: 21-Jul-2017 21:10 by Shereen Gtz) NURSING PROG Observed: 07/20/2017 Status: COMPLETED Source: [place] 10:53 PM CLINIC OTHER CAMPUS REPOSITORY HNO ID: [id number] Author: Skip Escamilla RN Service: Behavioral Health Author Type: Registered Nurse Type: Nursing Progress Note Filed: 07/20/2017 11:01 PM Note Text: Nursing Progress Note Patient Name: Zaina Doll Patient Location: [address]/[place] [address]* Daily Note:1900 Assumed care of patient. Patient stated he wanted to go AMA. TU notified. 2100 TU present on unit. TU allowed patient to have his HS medication before AMA. Patient compliant with HS medication. No prn's given, denies pain at this time. 2200 AMA witnessed. TU and nurse educated patient on dangers of leaving AMA, including . Patient stated, I have appointments tomorrow. Patient received belongings. Patient escorted off unit at 22:07. This note was completed by: Skip Escamilla RN [facility] Observed: 07/20/2017 Status: COMPLETED Source: [place] 4:11 PM [facility] REPOSITORY HNO ID: [id number] Author: Zoë Harris (Lsw) Service: Art Therapy Author Type: Art Therapist Type: Allied Health Filed: 07/20/2017 4:12 PM Note Text: GROUP PROGRESS NOTE SERVICE DATE: 07/20/2017 SERVICE TIME: 2:30 PM Length (minutes): 75 Attendance: Sleeping Participation Level: Did Not Attend GROUP PARTICIPATION: Group Topics: Coping Skills: Application, Discussion, Education and Postive Affirmations SIGNATURE: Zoë Harris LPC, LSW PATIENT NAME: Zaina Doll DATE: July 20, 2017 TIME: 4:12 PM [facility] Observed: 07/20/2017 Status: COMPLETED Source: [place] 3:17 PM [facility] REPOSITORY HNO ID: [id number] Author: ANNY Echavarria Service: Recreational Therapy Author Type: Therapist Type: Allied Health Filed: 07/20/2017 3:20 PM Note Text: GROUP PROGRESS NOTE SERVICE DATE: 07/20/2017 SERVICE TIME: 1330 Length (minutes): 45 Attendance: Full Attendance Participation Level: Active Participation Quality: Appropriate and Non-spontaneous GROUP PARTICIPATION: Group Topics: Exercise: Yoga PATIENT PRESENTATION AND RESPONSE: Affect: Constricted Mood: Anxious Cognition: Alert Progress: Initial interaction with patient Pt actively involved in yoga, affect remained flat/constricted throughout group. Pt reported feeling less physical tension after participating in group. SIGNATURE: ANNY Echavarria PATIENT NAME: Zaina Doll DATE: July 20, 2017 TIME: 3:17 PM [facility] Observed: 07/20/2017 Status: COMPLETED Source: [place] 12:04 PM [facility] REPOSITORY HNO ID: [id number] Author: Zoë Harris (Lsw) Service: Art Therapy Author Type: Art Therapist Type: Allied Health Filed: 07/20/2017 12:05 PM Note Text: GROUP PROGRESS NOTE SERVICE DATE: 07/20/2017 SERVICE TIME: 11:00 AM Length (minutes): 60 Attendance: Full Attendance Participation Level: Active Participation Quality: Appropriate, Attentive, Invested, Sharing and Supportive GROUP PARTICIPATION: Group Topics: Music Therapy: Create Your Own Playlist PATIENT PRESENTATION AND RESPONSE: Affect: Appropriate Mood: Calm Cognition: Alert Oriented to - Person, Place, Time, Date, Situation Coherant and Goal Directed Focused Progress: Appeared to successfully internalize the purpose of intervention SIGNATURE: Zoë Harris LPC, LSW PATIENT NAME: Zaina Doll DATE: July 20, 2017 TIME: 12:05 PM [facility] Observed: 07/20/2017 Status: COMPLETED Source: [place] 11:10 AM [facility] REPOSITORY HNO ID: [id number] Author: Vonnie Argueta (Ma-Lpc) Therapist Service: Art Therapy Author Type: Art Therapist Type: Allied Health Filed: 07/20/2017 11:17 AM Note Text: GROUP PROGRESS NOTE SERVICE DATE: 07/20/2017 SERVICE TIME: 9:30 am Length (minutes): 75 Attendance: Attended 1/4 to 1/2 of session and Left briefly with staff and returned Participation Level: Minimal Participation Quality: Guarded and Non-spontaneous GROUP PARTICIPATION: Group Topics: Community Meeting: Schedule, Symptom AND Mood Check-In and Treatment Progress PATIENT PRESENTATION AND RESPONSE: Affect: Constricted Mood: Calm Cognition: Alert Oriented to - Person, Place, Time, Date, Situation Progress: Initial interaction with patient Pt joined group little late, guarded and observant with little socializing. Pt made good eye contact and voiced that he wants to go to residential d/t trying IOP a number of times and not succeeding. Pt voiced concerns about if he left to go home, he has money and feels he would use it for addiction. Pt did not relate to peers, but sat and quietly observed discussion. SIGNATURE: MECHELLE Singh, Art PATIENT NAME: Zaina Doll DATE: July 20, 2017 TIME: 11:10 AM NURSING PROG Observed: 07/19/2017 Status: COMPLETED Source: [place] 11:38 PM CLINIC OTHER CAMPUS REPOSITORY O ID: [id number] Author: Miguel (Rn) GARY Tillman Service: (none) Author Type: Registered Nurse Type: Nursing Progress Note Filed: 07/20/2017 5:37 AM Note Text: Nursing Progress Note Patient Name: Zaina Doll Patient Location: [address]/[place] [address]* Daily Note: () Patient asleep in bed beginning of shift. No s/s of distress noted. Patient did no attend evening group. Patient awoken for vitals and HS medications. Patient reports diaphoresis, mild visual hallucinations, mild hand tremors noted. BP 121/77 Pulse 96 Temp 36.6 ?C (97.9 ?F) (Temporal Artery) Resp 18 Ht 190.5 cm (6' 3) Wt 81.6 kg (180 lb) SpO2 99% BMI 22.50 kg/m? Pain: 0/10 CIWA: 5 COWS: 5 Patient compliant with HS medications, including librium 25 mg. Denies any needs. Patient returned back to bed. Patient awake OOR getting water at 0031. Denies any needs. Gait steady. Patient returned to bed. Patient slept rest of shift. No s/s of distress noted. Patient reports diaphoresis. Mild hand tremors noted. Denies pain. BP 121/73 Pulse 98 Temp 36.8 ?C (98.3 ?F) (Temporal Artery) Resp 18 Ht 190.5 cm (6' 3) Wt 81.6 kg (180 lb) SpO2 99% BMI 22.50 kg/m? Pain: 0/10 CIWA: 4 COWS: 4 Patient complaint with 0600 librium 25 mg. Denies any needs at this time. Patient returned to sleep. This note was completed by: Miguel Tillman RN PROGRESS Observed: 07/19/2017 Status: COMPLETED Source: [place] 10:26 PM CLIN[facility] OTHER CAMPUS REPOSITORY HNO ID: [id number] Author: Leanne Figueroa Service: General Internal Medicine Author Type: Physician Type: Progress Notes Filed: 07/19/2017 10:27 PM Note Text: PROGRESS NOTE - INTERNAL MEDICINE PATIENT NAME: Zaina Doll SERVICE DATE: July 19, 2017 SERVICE TIME: 10:26 PM PCP: Lux Blackwell ADMITTING PHYSICIAN: Yeison Rosado MD INTERVAL HISTORY OF PRESENT ILLNESS: Pt. Seen agitation . No distress REVIEW OF SYSTEMS: GENERAL: No weight loss, malaise or fevers RESPIRATORY: Negative for cough, hemoptysis, wheezing, COPD, dyspnea or shortness of breath CARDIOVASCULAR: Negative for chest pain, leg swelling, hypertension, CHF or palpitations GI: No nausea, vomiting, or diarrhea : No history of dysuria, frequency or incontinence PSYCH: Negative for sleep disturbance, mood disorder and recent psychosocial stressors. ENDOCRINE: Negative for cold or heat intolerance, polyuria, polydipsia and goiter All other reviewed and negative other than HPI. PRIOR TO ADMISSION MEDICATIONS: Prescriptions Prior to Admission: busPIRone (BUSPAR) 15 mg tablet Take 1 tablet by mouth twice daily. Disp: 60 tablet Rfl: 0 gabapentin (NEURONTIN) 800 mg tablet Take 1 tablet by mouth three times daily for 90 days. Disp: 90 tablet Rfl: 0 ziprasidone (GEODON) 40 mg capsule Take 1 capsule by mouth twice daily with meals. Disp: 60 capsule Rfl: 0 Omeprazole 40 mg capsule TAKE ONE CAPSULE BY MOUTH TWICE A DAY Disp: 60 capsule Rfl: 2 Unknown at Unknown time albuterol HFA (VENTOLIN HFA) 90 mcg/actuation inhaler Inhale 1 Puff as instructed every 6 hours as needed for Wheezing/Shortness of Breath. Disp: 1 Inhaler Rfl: 0 Past Week at Unknown time folic acid 1 mg tablet Take 1 tablet by mouth daily with breakfast. Disp: 30 tablet Rfl: 0 nicotine polacrilex (NICORETTE) 2 mg gum Take 1 Each by mouth every 2 hours as needed. Disp: Rfl: thiamine (VITAMIN B1) 100 mg tablet Take 1 tablet by mouth three times daily for 261 doses. Disp: 90 tablet Rfl: 2 cholecalciferol (VITAMIN D3) 1,000 unit tab tablet Take 2 tablets by mouth once daily. Disp: Rfl: MULTIVITAMIN-FERROUS FUMARATE-FOLIC ACID 18 MG-400 MCG TABLET Take 1 tablet by mouth daily with breakfast. Disp: 30 tablet Rfl: 0 Unknown at Unknown time Martin-3 Fatty Acids-Vitamin E (FISH OIL) 1,000 mg cap Take 1 capsule by mouth once daily. Disp: Rfl: Unknown at Unknown time INs AND OUT SUMMARY: Intake/Output Summary (Last 24 hours) at 07/19/17 2226 Last data filed at 07/19/17 1300 Gross per 24 hour Intake 480 ml Output 0 ml Net 480 ml PHYSICAL EXAM: Patient Vitals for the past 24 hrs: BP Temp Temp src Pulse Resp SpO2 07/19/17 2000 121/77 36.6 ?C (97.9 ?F) Temporal Art 96 18 99 % 07/19/17 1742 114/76 36.6 ?C (97.8 ?F) Temporal Art 82 18 98 % 07/19/17 1135 119/73 36.2 ?C (97.2 ?F) Temporal Art 72 18 99 % 07/19/17 0757 121/79 36.2 ?C (97.2 ?F) Temporal Art 63 18 98 % 07/19/17 0500 118/71 36.4 ?C (97.6 ?F) Oral 70 16 98 % GENERAL: Alert, no distress, cooperative SKIN: Skin color, texture, turgor normal. No rashes or lesions. NECK: No jugulovenous distention, No carotid bruits, Carotid pulse normal contour, Supple LUNGS: Lungs clear to auscultation. Good diaphragmatic excursion. CARDIAC: Normal S1 and S2; no rubs, murmurs, or gallops ABDOMEN: Abdomen soft, non-tender. BS normal. No masses or organomegaly. EXTREMETIES: Extremities normal. No deformities, edema, clubbing or skin discoloration. NEURO: Alert, oriented X 3, Cranial nerves II-XII intact, Gait normal. Reflexes normal and symmetric. Sensation grossly intact. PULSES: 2+ radial, 2+ carotid DATA: CBC, Coags, BMP, Mg, Phos Recent Labs 07/18/17 1854 WBC 6.00 HB 13.9 HCT 41.7 PLT 297 NA 138 K 3.8 CHLOR 96* CO2 31* BUN 8* CREAT 0.56* GLUC 116* CA 9.6 CSF AND Dilantin Liver Function, Amylase, AND Lipase Recent Labs 07/18/17 1854 TPROT 7.8 ALB 4.4 ALT 13 AST 20 ALKPHOS 105 TBILI 0.7 IMAGING Reviewed and discussed with the patient. IN-PATIENT MEDICATIONS: Current hospital medications: Patient Home Medications (stored in pharmacy) OTHER DAILY ondansetron 4 mg tab(s) (ZOFRAN) 4 mg ORAL q 6 H PRN chlordiazePOXIDE 25 mg cap(s) (LIBRIUM) 25 mg ORAL QID [START ON 07/20/2017] chlordiazePOXIDE 10 mg cap(s) (LIBRIUM) 10 mg ORAL QID 0.9% NaCl 2-10 mL 2-10 mL INTRAVENOUS q 8 H LORazepam 2 mg (ATIVAN) 2 mg ORAL q 4 H PRN LORazepam 2 mg injection (ATIVAN) 2 mg INTRAMUSCULAR q 4 H PRN LORazepam 2 mg injection (ATIVAN) 2 mg INTRAVENOUS q 4 H PRN thiamine 100 mg tab(s) (VITAMIN B1) 100 mg ORAL TID folic acid 1 mg tab(s) 1 mg ORAL DAILY WITH BREAKFAST acetaminophen 650 mg tab(s) (TYLENOL) 650 mg ORAL q 4 H PRN nicotine 21 mg/24 hr 1 Patch (NICODERM) 1 Patch TRANSDERMAL DAILY nicotine -- REMOVE patch OTHER DAILY nicotine - verify patch OTHER q 8 H nicotine polacrilex 2 mg gum (NICORETTE) 2 mg ORAL q 2 H PRN loperamide 2 mg cap(s) (IMODIUM) 2 mg ORAL TID PRN busPIRone 15 mg tab(s) (BUSPAR) 15 mg ORAL BID gabapentin 800 mg cap(s) (NEURONTIN) 800 mg ORAL TID ziprasidone 40 mg cap(s) (GEODON) 40 mg ORAL BID w MEALS albuterol 2.5 mg /3 mL (0.083 %) 2.5 mg (PROVENTIL) 2.5 mg INHALATION q 6 H PRN PROBLEM LIST: ACTIVE PROBLEM LIST Major depressive disorder Cocaine Abuse Cannabis Abuse Acid Reflux Tobacco Abuse Alcohol Abuse Alcohol Use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 Encounter RL72Qdow: [facility] B2964Dlo: Repository [id number] 07/21/2017 [id number] Ambulatory 9277 [facility] Repository 07/18/2017/07/21/19 [id number] ASHLEE, Inpatient [address] Encounter [facility] Other [place] Repository 07/10/2017/07/11/19 [id number] Emergency [address] Other [place] Repository 07/10/2017/07/11/19 [id number] Unknown Emergency [facility] 18 uildin [facility] Repository 07/06/2017/07/10/19 [id number] ASHLEE, Inpatient [address] Clinic Other [place] Repository 07/06/2017/07/07/19 [id number] Ambulatory UHCBuilding: [place] [address] TESARoom: Critical [facility] AIRB2Dax: Repository ETR934 PAYERS PAYERS ENCOUNTER GUARANTOR PAYER SUBSCRIBER SOURCE 03/22/2018 ZAINA EDLDOB: Primary ZAINA EDLDOB: [place] Insurance:[facility] [id number] [facility] [employer] licy Number: 10 [place], [place] [id number] [facility], [address]Mab: (216) Date:Plan Name:[facility] 88010Kny: [phone] () O [address] [phone]: [phone]) () [phone] 03/20/2018 ZAINA EDLDOB: Primary ZAINA EDLDOB: [place] Insurance:[facility] [id number] [facility] [employer] licy Number: 10 [place], [place] [id number] [facility], [address]Pqh: (216) Date:Plan Name:[facility] 95492Glo: [phone] (HP) O [address] [phone]: ([phone]) () [phone] 03/09/2018 ZAINA EDLDOB: Primary ZAINA EDLDOB: [facility] [id number] Insurance:[facility] [id number] [facility] RDOlmsted licy Number: Effective [address] [place], [place] Date:2008-03-22 - RDOlmsted Repository [address]Kdj: 216 [id number], [place] [phone] (HP) Name:[address] [address]~~KURTEDLW 8730ATTN: CLAIMS [place] MTel: [phone]) [phone]: [phone] () () 03/08/2018 ZAINA EDLDOB: Primary ZAINA EDLDOB: [facility] Insurance:CaresourcePo [id number] [place] [address] licy Number: [address] [place] Repository [place], [place] [id number] [place], [address]Hyw: (216) Date:Plan Name:[facility] [address]Aec: () [address] [place] [address] [phone]: [phone]) () [phone] 03/05/2018 ZAINA L [id number] Primary ZAINA L EDLDOB: [place] Insurance:CARESOURCEPo [id number] [place], [place] [address]Pjo: . licy Number: [facility] () [id number] Repository Date:2018-03-05P [address]ATTN: [place] [address]KK: 03/05/2018 Secondary NOT GIVENUNK [place] Insurance:SELF PAY [facility] Number: Effective Repository Date:2018-03-05 03/05/2018 ZAINA L [id number] Primary ZAINA L EDLDOB: [place] Insurance:CARESOURCEPo [id number] .Tel: . () licy Number: [facility] [id number] Repository Date:2018-03-05 [address]ATTN: [place] [address]PY: 03/05/2018 Secondary NOT GIVENUNK [place] Insurance:SELF PAY [facility] Number: Effective Repository Date:2018-03-05 03/05/2018 ZAINA L [id number] Primary ZAINA L EDLDOB: [place] Insurance:CARESOURCEPo [id number] [place], [place] .Tel: . () licy Number: [facility] [id number] Repository Date:2018-03-05P [address]ATTN: [place] [address]CT: 03/05/2018 Secondary NOT GIVENUNK [place] Insurance:SELF PAY [facility] Number: Effective Repository Date:2018-03-05 03/05/2018 ZAINA L [id number] Primary [facility] L [facility]:CARESOURCEPo [id number] City, [place] [address]Prr: . licy Number: Hospital () [id number] Repository Date:2018-03-05P [address]ATTN: [place] [address]IR: 03/05/2018 Secondary NOT GIVENUNK [place] Insurance:SELF PAY [facility] Number: Effective Repository Date:2018-03-05 03/03/2018 ZAINA T EDLDOB: Primary ZAINA T EDLDOB: [facility] Insurance:[facility] [id number] System [place] HMOPolicy 00 [place] Repository [place] Number: JOSEPH [address]Dlw: (216) [id number] [place] [address]Xrz: (HP) Date:2018-01-20 (HP) 03/01/2018 ZAINA EDLDOB: Primary ZAINA EDLDOB: [place] Insurance:[employer]ourcePo [id number] [place] [address] lic Number: 00 [place], [place] [id number] [facility], [address]Zor: (216) Date:Plan Name:[facility] [place] [address]Kcl: (HP) [address], [place] [phone]: [phone]) () [phone] 02/26/2018 ZAINA T EDLDOB: Primary ZAINA T EDLDOB: [facility] [id number] System [place] HMOPolicy 00 [place] Repository [place] Number: [place] [address]Upp: (216) [id number] [place] [address]Kax: (HP) Date:2018-01-20 (HP) 02/24/2018 ZAINA [id number] Primary ZAINA DOLLUNK [facility] Insurance:[facility] AVUTHERAN M[place] MEDICAID HMOPolicy Center [place], Number: Repository [place] [address]Yvm: [id number] Date:2017-09-19[address] [address]WX: 02/23/2018 ZAINA EDLDOB: Primary ZAINA EDLDOB: [facility] Insurance:[facility] [id number] [facility] licy Number: [address] [place] Repository [place] [id number] [place], [address]Vwf: (216) Date:Plan Name[facility] [address]Nfz: () [address] [place] [address] [phone]: ([phone]) () [phone] 02/14/2018 ZAINA EDLDOB: Primary ZAINA EDLDOB: [place] Insurance:[facility] [id number] [place] [address] licy Number: [address] [place] Repository [place], [place] [id number] [place], [address]Kml: (216) Date:Plan Name:[facility] [address]Qeb: () [address] [place] [phone]: ([phone]) () [phone] 02/14/2018 ZAINA EDLDOB: Primary ZAINA EDLDOB: [place] Insurance:[facility] [id number] [facility] licy Number: [address] [place] Repository [place] [id number] [place], [address]Jfu: (216) Date:Plan Name:[facility] [address]Goc: (HP) [address] [place] [address] [phone]: ([phone]) (HP) [phone] 02/11/2018 ZAINA T EDLDOB: Primary ZAINA T EDLDOB: [facility] Insurance:[facility] [id number] System [place] HMOPolicy 00 [place] Repository [place] Number: [place] [address]Oka: (216) [id number] [place] [address]Xgp: (HP) Date:2018-01-20 (HP) 02/11/2018 ZAINA T EDLDOB: Primary ZAINA T EDLDOB: [facility] Insurance:[facility] [id number] System [place] HMOPolicy 00 [place] Repository [place] Number: [place] [address]Hni: (216) [id number] [place] [address]Dqi: (HP) Date:2018-01-20 (HP) 02/11/2018 ZAINA T EDLDOB: Primary ZAINA T EDLDOB: [facility] Insurance:[facility] [id number] System [place] HMOPolicy 00 [place] Repository [place] Number: [place] [address]Xrx: (216) [id number] [place] [address]Hxl: (HP) Date:2018-01-20 (HP) 02/11/2018 ZAINA T EDLDOB: Primary ZAINA T EDLDOB: [facility] Insurance:[facility] [id number] System [place] HMOPolicy 00 [place] Repository [place] Number: [place] [address]Amk: (216) [id number] [place] [address]Xkl: (HP) Date:2018-01-20 (HP) 02/10/2018 ZAINA EDLDOB: Primary ZAINA EDLDOB: [place] Insurance:[facility] [id number] [facility] Number: [address] [place] Repository [facility] [id number] [place], [address]Sdc: (216) Date:Plan Name:[facility] [address]Ouj: (HP) [address] [place] [address] [phone]: ([phone]) () [phone] 02/08/2018 ZAINA EDLDOB: Primary ZAINA EDLDOB: [facility] Insurance:[facility] [id number] [facility] licy Number: Effective 00 [facility], Date:2008-03-22 - [facility] Repository [place] [address]Bko: [id number] [facility] Name:[place]USTINA [place] () [address]ATTN: CLAIMS [address]~~KURTEDLW [place], [place] ANDREE@[facility].[place] [address]LI: (505) MTel: () () 02/07/2018 ZAINA EDLDOB: Primary ZAINA EDLDOB: [place] Insurance:[facility] [id number] [place] [address] licy Number: 00 [facility] [place] [id number] [place], [address]Dhu: (216) Date:Plan Name:[facility] [address]Tqg: (HP) O [address] [phone]: ([phone]) () [phone] 02/04/2018 ZAINA EDLDOB: Primary ZAINA EDLDOB: [place] Insurance:[facility] [id number] [facility] licy Number: [address] [place] Repository [place] [id number] [place], [address]Uqc: (216) Date:Plan Name:[facility] [address]Ehp: (HP) [address] [place] [address] [phone]: (800) (HP) [phone] 01/18/2018 ZAINA EDLDOB: Primary ZAINA EDLDOB: [place] Insurance:[facility] [id number] [facility] licy Number: [address] [place] Repository [place], [place] [id number] [facility], [address]Svp: (216) Date:Plan Name:[facility] [place] [address]Kyz: (HP) O [address] [phone]: (800) (HP) [phone] 01/04/2018 ZAINA EDLDOB: Primary ZAINA EDLDOB: [place] Insurance:[facility] [id number] [facility] [address] DEAN licy Number: [address]AN Repository [address] [place] [address] [id number] [place] [address], [address]Tny: (216) Date:Plan Name:[facility] [address]Bch: (HP) [address] [phone]: ([phone]) () [phone] 12/20/2017 ZAINA [id number] Primary ZAINA EDLUNK [facility] Insurance:CAR[employer]OURCE [facility] [facility] AVELUTHERAN MENS MEDICAID HMOPolicy Center [place], Number: Repository [place] [address]Qsy: [id number] Date:2017-09-19P.O. () [address] [address]IK: 11/03/2017 [facility] Primary ZAINA T EDLDOB: [facility] COUNTYDOB: Insurance:[facility] [id number] System [id number]USY, [facility] [address]Ceq: DEPT PENITENTIARY Number: [id number] [address] 3 [id number] () [place] Date:2017-11-03 [address]Jke: (HP) 11/03/2017 Secondary ZAINA Walls EDLDOB: [facility] Insurance:[facility] [id number] [address]SUSY, Repository [facility] [address]Mrd: Number: [id number] (HP) Date:2017-11-03 10/30/2017 ZAINA EDLDOB: Primary ZAINA EDLDOB: [place] Insurance:[facility] [id number] [facility] NGUY[address]N [address] DEAN licalma Number: [address]AN Repository [place], [place] [id number] 318[place], [address]Jdx: (216) Date:Plan Name:[facility] [address]Yif: () [address] [place] [address] [phone]: ([phone]) () [phone] 10/29/2017 ZAINA EDLDOB: Primary ZAINA EDLDOB: [place] Insurance:[facility] [id number] [facility] DR DIANNE lepe Number: [address] Repository [place], [place] [id number] [place], [address]Eaj: (216) Date:Plan Name:[facility] [address]Xjw: () [address] [place] [address] [phone]: (800) () [phone] 10/27/2017 ZAINA EDLDOB: Primary ZAINA EDLDOB: [place] Insurance:[facility] [id number] [facility] NGUY[address]N DR DIANNE lepe Number: [address]AN Repository [place], [place] [id number] [place], [address]Xag: (216) Date:Plan Name:[facility] [address]Oco: () O [address] [phone]: (800) () [phone] 10/22/2017 ZAINA EDLDOB: Primary ZAINA EDLDOB: [place] Insurance:[facility] [id number] [facility] [address] DEAN licy Number: [address] Repository 318[facility], [place] [id number] [place], [address]Uhk: (216) Date:Plan Name:[facility] [address]Hxo: (HP) [address] [place] [address] [phone]: (800) () [phone]/20/2017 ZAINA EDLDOB: Primary ZAINA EDLDOB: [place] Insurance:[facility] [id number] [facility] NGUY[address]N DR DEAN licy Number: [address] Repository [place], [place] [id number] [facility], [address]Bcn: (216) Date:Plan Name:[facility] 133[address]Whr: () [address] [place] [address] [phone]: (800) () 48[address]/23/2017 ZAINA EDLDOB: Primary ZAINA EDLDOB: [place] Insurance:[facility] [id number] [facility] licy Number: 00 [place], [place] [address]Smn: [id number] [facility] Date:Plan Name:[facility], [place] () O [address] [address]Rnv: (216) [phone]: () [address]/20/2017 ZAINA EDLDOB: Primary ZAINA EDLDOB: [place] Insurance:[facility] [id number] [facility] licy Number: 00 [facility] , [place] [address]Qnp: [id number] [facility] Date:Plan Name:[facility], [place] (HP) O [address] [address]Gmn: (216) [phone]: () [address]/19/2017 ZAINA EDLDOB: Primary ZAINA EDLDOB: [place] Insurance:[facility] [id number] [facility] licy Number: 00 Repository , [place] [address]Cyw: [id number] [facility] Date:Plan Name:[place] (HP) [address]Day[place] [address]Ppq: [phone]: () [phone] 09/01/2017 ZAINA EDLDOB: Primary ZAINA EDLDOB: [place] Insurance:[facility] [id number] [facility] licy Number: 00 Repository , [place] [address]Urv: [id number] [place] Date:Plan Name:[place] (HP) [address], [place] [address]Ivz: ([phone]: () [address]/01/2017 ZAINA EDLDOB: Primary ZAINA EDLDOB: [place] Insurance:[facility] [id number] [facility] licy Number: 00 [facility] , [place] [address]Saz: [id number] Date:Plan Name:[place] (HP) [address], [place] [address]Zwc: (216 [phone]: () 48[address]/28/2017 ZAINA EDLDOB: Primary ZAINA EDLDOB: [place] Insurance:[facility] [id number] [facility] licy Number: 00 Repository , [place] [address]Jvp: [id number] [facility] Date:Plan Name:[place] ([place]) [address] [place], [place] [address]Ksz: [phone]: [phone] 08/26/2017 ZAINA EDLDOB: Primary ZAINA EDLDOB: [place] Insurance:[facility] [id number] [facility] [address] licy Number: [id number], [place] [phone] [place] [address], [address]Vig: ([phone]) Date:Plan Name:[facility] [address]Fqx: (HP) [address] [place] [address] [phone]: [phone]) (HP) [phone] 08/23/2017 ZAINA [id number] Primary ZAINA DOLLUNK [facility] Insurance:[employer] [facility] [place] [facility] [facility] [place] Number: Repository [place] [id number]: [id number] Date:2017-03-22[address]. () [address] [place] [phone]: 08/03/2017 ZAINA EDLDOB: Primary ZAINA EDLDOB: [place] Insurance:[facility] [id number] [facility] [address] DIANNE lepe Number: [address]AN Repository [address] [place] [id number] [place] [address], [address]Wux: ([phone]) Date:Plan Name:[facility] [address]Xwx: (HP) [address] [place] [phone]: (800) () [phone] 07/22/2017 ZAINA EDLDOB: Primary ZAINA EDLDOB: [place] Insurance:[facility] [id number] [facility] FRANCISCA licy Number: [address] Repository [place], [place] [id number] [facility], [address]Hws: (216) Date:Plan Name:[facility] [address]Yhx: (HP) [address] [place] [address] [phone]: (800) () [phone] 07/21/2017 ZAINA EDLDOB: Primary ZAINA EDLDOB: [place] Insurance:[facility] [id number] [facility] NGUYỄNMel lepe Number: [address]ository [address], [place] [phone] [address], [address]Lap: (216) Date:Plan Name:[facility] [place] [address]Qvp: (HP) [address] [phone]: (800) (HP) [phone] 07/10/2017 ZAINA T EDLDOB: Primary ZAINA T EDLDOB: [facility] Insurance:[facility] [id number] System [place] [employer] HMOPolicy [address] Rep[address] [facility] [place] Number: [place], [id number]: () [id number] [place] [address]Evh: (HP) Date:2017-06-20 - 2017-07-10 (HP) 07/10/2017 Secondary ZAINA T EDLDOB: [facility] Insurance:[facility] [id number] System MEDICAID HMOPolicy [address] Repository Number: [place], [id number] [place] [address]Fzp: Date:2017-06-20 - 2017-07-10 (HP) 07/06/2017 ZAINA EDLDOB: Primary ZAINA EDLDOB: [place] Insurance:[facility] [id number] [facility] FRANCISCA lepe Number: [address] Rep[address] [facility] [place] [id number] [facility], [address]Axa: ([phone]) Date:Plan Name:[facility] [place] [address]Cxm: (HP) [address] [phone]: (800) (HP) [phone]
== END 2018-03-07 16:02 | disposition home or self-care (01) | DRG 775 ==
LOC: ED 11:34 → MS3 13:05
PROVIDERS: Admitting Provider Internal Medicine; Emergency Provider Emergency Medicine; Visit Provider Internal Medicine
DX: F10.239 Alcohol dependence with withdrawal, unspecified (principal); E87.6 Hypokalemia; F10.229 Alcohol dependence with intoxication, unspecified; F17.213 Nicotine dependence, cigarettes, with withdrawal; F25.9 Schizoaffective disorder, unspecified; Y90.8 Blood alcohol level of 240 mg/100 ml or more; Z79.899 Other long term (current) drug therapy; F15.90 Other stimulant use, unspecified, uncomplicated; F12.90 Cannabis use, unspecified, uncomplicated
CPT/HCPCS: 36415; 80048; 80053; 80307; 80320; 82962; 85025; 99285; 99406; A4216; G0480; J2405